=== PATIENT | male | born 1950 | race Caucasian/White ===

== ENCOUNTER 2024-07-27 08:45 | Inpatient (IN) ==
--- NOTE | 2024-07-27 09:12 | Emergency Department Note ---
Impression & Plan Hypertensive urgency, Multiple myeloma, Chest pain, Shortness of breath ED Provider Note NAME: CARA CHANCEMAN AGE: 74 SEX: M : 1950 ARRIVES VIA: Walk-In INFORMANT: Patient ED PROVIDER(S): Adonay Moreno DO CHIEF COMPLAINT: chest pain HPI: Patient is a 74-year-old male who follows with hematology oncology Dr. Aguiar for multiple myeloma. He has been undergoing treatments for the past month. Last treatment was this past Thursday. He notes that last night he started with a lower back pain just around the base of his back. Is worse with twisting, turning, and bending. He was also getting some intermittent chest pressure in the middle of his chest which has been coming and going since yesterday. He has noticed some exertional shortness of breath as well. He had some lower abdominal pain but no vomiting or diarrhea. No dysuria, urgency, or frequency. No other exacerbating or remitting factors. Currently has no chest pain. ADDITIONAL HISTORY OBTAINED: Per HPI Chronic Medical/Social Conditions Affecting Care: Per HPI PAST MEDICAL HISTORY:See Below PAST SURGICAL HISTORY:See Below FAMILY HISTORY:See Below SOCIAL HISTORY:See Below HOME MEDICATIONS:See Below ALLERGIES:See Below VITALS:See Below PHYSICAL EXAMINATION: GENERAL: Sitting up in bed, alert, well appearing, well nourished, no distress, non-toxic EYE EXAM: normal conjunctiva. PERRL and EOM's grossly intact. OROPHARYNX: no exudate, no erythema, lips, buccal mucosa, and tongue normal and mucous membranes are moist NECK: supple, no nuchal rigidity, no adenopathy, non-tender LUNGS: Clear to auscultation. Normal chest wall mechanics HEART: no murmurs, S1 normal and S2 normal ABDOMEN: abdomen soft, non-tender, normo-active bowel sounds, no masses, no rebound or guarding. BACK: Back is symmetrical on inspection and there is no deformity, no midline tenderness paraspinal tenderness from the bilateral lower lumbar L4-L5 region tracking to the SI joints UPPER EXTREMITIES: upper extremities are grossly normal. LOWER EXTREMITIES: No pitting edema. Calves are equal bilaterally NEURO EXAM: Normal sensorium, cranial nerves II-XII grossly intact, normal speech, no gross weakness of arms, no gross weakness of legs. No drift. Finger to nose intact. Gross sensation intact. MEDICAL DECISION MAKING: Patient is a 74-year-old male who presents to the ER with a past medical history of RANDOLPH, prediabetes, multiple myeloma, CKD with above-stated complaint. IV was established medicos obtained. Labs show mild leukopenia 2.7. Mild anemia 10.5. Platelets were low at 62 with no old to compare to. D-dimer was elevated 2600. BMP with LFTs bilirubin was unremarkable. Troponin was negative. Lipase was normal. UA was clear. With the chest pain and exertional shortness of breath Case was discussed with the hospitalist for further evaluation management treatment. CT a of the chest and abdomen pelvis was unremarkable for any acute pathology. He was updated at bedside. He was given IV hydralazine for elevated blood pressure with a low heart rate. Pressures did trend down slightly. He was also given IV morphine for his back pain. Back pain improved significantly and following this was when he was given the hydralazine. Consults/Care Managements Discussions: Per [facility] Triage Nursing notes reviewed. Limited review of prior medical records performed Vital Signs: reviewed and remarkable for no significant abnormalities Differential diagnosis: Cardiac ischemia, aortic dissection, pulmonary embolism, pneumothorax, pneumonia, pericarditis, myocarditis, esophageal rupture, GERD, cholecystitis, pancreatitis, musculoskeletal, as well as other pathologies. ER treatment provided: See below Diagnostics interpreted by me include EKG and cardiac monitoring as listed below: -Cardiac Monitoring: An order was placed for continuous cardiac monitoring. The monitor shows a rate of 70 with sinus rhythm. -ECG: Sinus rhythm at 66 Normal axis No PVCs QTc 444 -Laboratory studies:Interpreted by me as stated above in MDM and shown below. Imaging studies: Xrays: As interpreted by me: Portable AP upright 1 view of the chest shows no focal infiltrate CTs show: CT of the chest and abdomen pelvis was unremarkable per radiology Procedures:none Critical Care: None Past Med/Surg History Problem List (Updated 07/27/24 @ 14:58 by Asuncion Tucker PA-C) Abnormal CT of the abdomen Lumbar back pain Hypertensive urgency Chest pain HTN (hypertension) RANDOLPH (obstructive sleep apnea) Multiple myeloma Prediabetes CKD (chronic kidney disease), stage III Surgical History (Updated 07/27/24 @ 14:55 by Asuncion Tucker PA-C) History of bone marrow biopsy History of colonoscopy Family History (Updated 07/27/24 @ 14:56 by Asuncion Tucker PA-C) Sister Cancer Father COPD (chronic obstructive pulmonary disease) Social History (Updated 07/27/24 @ 14:56 by Asuncion Tucker PA-C) Smoking Status: Former smoker Hx Alcohol Use: Yes Alcohol Intake Frequency: Monthly or Less Hx Substance Use: No Preferred Language: Setswana Feels Safe at Home: Yes Allergies Allergies Allergy/AdvReac Type Severity Reaction Status Date / Time No Known Allergies Allergy Verified 04/01/24 21:22 Home Meds Home Medications Medication Instructions Recorded Confirmed acyclovir 400 mg tablet 400 mg PO BID 07/27/24 07/27/24 dexamethasone 4 mg tablet 4 mg PO UD 07/27/24 07/27/24 glipizide 2.5 mg tablet, extended 2.5 - 5 mg PO UD 07/27/24 07/27/24 release 24 hr lenalidomide 10 mg capsule 10 mg PO Q2D 07/27/24 07/27/24 Results & Data (ED) Vital Signs Vital Signs - 24 hr 07/27/24 08:55 07/27/24 09:22 07/27/24 09:27 Temperature 36.4 C L Temperature Source Skin Pulse Rate 69 66 61 Pulse Rate [Right Finger] Respiratory Rate 20 19 Respiratory Effort / Characteristics Non-Labored Spontaneous Respiratory Depth Normal Blood Pressure 196/100 H Blood Pressure [Left Arm] Blood Pressure Mean 132 Blood Pressure Mean [Left Arm] Blood Pressure Position [Left Arm] Pulse Oximetry 96 97 Oxygen Delivery Method Room Air Room Air Sepsis Recent Fever Within 48 Hours No Sepsis New/Unexplained Change in Mental Status N/A Sepsis Action Taken by Nursing No Action Required 07/27/24 09:27 07/27/24 11:00 07/27/24 12:00 Temperature 36.4 C L Temperature Source Oral Pulse Rate Pulse Rate [Right Finger] 61 65 62 Respiratory Rate 19 18 18 Respiratory Effort / Characteristics Non-Labored Spontaneous Non-Labored Spontaneous Non-Labored Spontaneous Respiratory Depth Normal Blood Pressure Blood Pressure [Left Arm] 182/111 H 184/102 H 195/114 H Blood Pressure Mean Blood Pressure Mean [Left Arm] 134 129 141 Blood Pressure Position [Left Arm] Sitting Sitting Sitting Pulse Oximetry 97 97 97 Oxygen Delivery Method Room Air Room Air Room Air Sepsis Recent Fever Within 48 Hours Sepsis New/Unexplained Change in Mental Status Sepsis Action Taken by Nursing 07/27/24 12:50 07/27/24 13:15 Temperature Temperature Source Pulse Rate Pulse Rate [Right Finger] 73 75 Respiratory Rate 18 17 Respiratory Effort / Characteristics Non-Labored Spontaneous Non-Labored Spontaneous Respiratory Depth Normal Normal Blood Pressure Blood Pressure [Left Arm] 176/108 H 193/94 H Blood Pressure Mean Blood Pressure Mean [Left Arm] 130 127 Blood Pressure Position [Left Arm] Sitting Lying Pulse Oximetry 96 97 Oxygen Delivery Method Room Air Room Air Sepsis Recent Fever Within 48 Hours Sepsis New/Unexplained Change in Mental Status Sepsis Action Taken by Nursing Laboratory Data 07/27/24 09:19 07/27/24 09:19 Lab Results 07/27/24 07/27/24 Range/Units 09:19 10:15 WBC 2.70 L (4.8-10.8) K/ul RBC 3.09 L (4.70-6.10) M/uL Hgb 10.5 L (14.0-18.0) g/dl Hct 30.7 L (42.0-52.0) % MCV 99.4 (80.0-100.0) fL MCH 34.0 (25.0-34.0) pg MCHC 34.2 (32.0-36.0) g/dL RDW Std Deviation 51.5 H (36.4-46.3) fL RDW Coeff of Rocio 14.4 (11.5-14.5) % Plt Count 62 L (130-400) K/uL MPV 12.4 (9.4-12.4) fL Immature Gran % (Auto) 0.7 % Neut % (Auto) 62.2 % Lymph % (Auto) 19.3 % Sharkey % (Auto) 16.7 % Eos % (Auto) 1.1 % Baso % (Auto) 0.0 % Neut # (Auto) 1.68 (1.40-6.50) K/uL Lymph # (Auto) 0.52 L (1.20-3.40) K/uL Sharkey # (Auto) 0.45 (0.11-0.59) K/uL Eos # (Auto) 0.03 (0.00-0.50) K/uL Baso # (Auto) 0.00 (0.00-0.20) K/uL Immature Gran # (Auto) 0.02 (0.01-0.20) K/uL Platelet Estimate Decreased L (Normal) Tear Drop Cells 2+ Ovalocytes 1+ D-Dimer 2640 H* (0-500) ug/L FEU Sodium 138 (136-145) mmol/L Potassium 3.9 (3.5-5.1) mmol/L Chloride 106 (98-107) mmol/L Carbon Dioxide 26 (21-32) mmol/L Anion Gap 6 (3-11) BUN 18 (6-23) mg/dl Creatinine 1.12 (0.6-1.4) mg/dl Est Cr Clr Drug Dosing 70.2 ml/min Est GFR ( Amer) 75.7 ml/min Est GFR (Non-Af Amer) 65.3 ml/min BUN/Creatinine Ratio 16.1 (10-20) Glucose 121 H (70-99(Fasting)) mg/dl Calcium 8.5 L (8.6-10.3) mg/dl Total Bilirubin 0.7 (0.2-1.0) mg/dl AST 22 (13-39) U/L ALT 19 (7-52) U/L Alkaline Phosphatase 67 (34-104) U/L Troponin I High Sens 7.9 (0-20) pg/ml Total Protein 6.7 (6.0-8.3) gm/dl Albumin 3.7 (3.4-5.0) gm/dl Globulin 3.0 (2.5-4.0) gm/dl Albumin/Globulin Ratio 1.2 (0.9-2) Lipase 46 (11-82) U/L Urine Color Yellow Urine Appearance Clear (Clear) Urine pH 5.5 (4.5-7.5) Ur Specific [place] 1.010 (1.000-1.030) Urine Protein 1+ H (Negative) Urine Glucose (UA) Negative (Negative) Urine Ketones Negative (Negative) Urine Blood Negative (Negative) Urine Nitrite Negative (Negative) Urine Bilirubin Negative (Negative) Urine Urobilinogen Negative (Negative) Ur Leukocyte Esterase Negative (Negative) Urine WBC (Auto) 0-5 (0-5) /hpf Urine RBC (Auto) 0-2 (0-2) /hpf U Hyaline Cast (Auto) 0-2 (0-2) /lpf U Epithel Cells (Auto) 0-2 (0-2) /hpf Urine Bacteria (Auto) None Seen (None Seen) Administered Medications Losartan Potassium (Losartan Potassium 50 Mg Tab) 50 mg PO QAM SAMIR Stop: 08/26/24 13:29 Last Admin: 07/27/24 14:04 Dose: 50 mg Documented By: THOMAS Discontinued Medications Aspirin (Aspirin Chew 324 Mg) 324 mg PO NOW STA Stop: 07/27/24 09:13 Last Admin: 07/27/24 09:35 Dose: 324 mg Documented By: THOMAS Hydralazine HCl (Hydralazine Hcl 20 Mg/Ml Vial) 10 mg IV NOW STA Stop: 07/27/24 12:07 Last Admin: 07/27/24 12:16 Dose: 10 mg Documented By: THOMAS Sodium Chloride (Nss) 1,000 mls @ 999 mls/hr IV .Q1H1M ONE Stop: 07/27/24 10:09 Last Infusion: 07/27/24 13:37 Dose: Infused Documented By: Admin: 07/27/24 09:36 Dose: 999 mls/hr Documented By: THOMAS Ioversol (Optiray 320 125ml) 120 ml IV ONCE ONE Stop: 07/27/24 10:44 Last Admin: 07/27/24 10:43 Dose: 120 ml Documented By: LISANDRO Ketorolac Tromethamine (Ketorolac Tromethamine 15 Mg/Ml Vial) 10 mg IV NOW ONE Stop: 07/27/24 09:38 Last Admin: 07/27/24 09:56 Dose: Not Given Documented By: THOMAS Methylprednisolone (Methylprednisolone 125 Mg/2 Ml Vial) 40 mg IV NOW STA Stop: 07/27/24 13:38 Last Admin: 07/27/24 14:06 Dose: 40 mg Documented By: THOMAS Morphine Sulfate (Morphine Sulfate 4 Mg/Ml 1 Ml Carp\Vial) 4 mg IV NOW STA Stop: 07/27/24 09:38 Last Admin: 07/27/24 09:41 Dose: 4 mg Documented By: THOMAS Oxycodone HCl (Oxycodone Hcl Ir 5 Mg Tab (Immediate Release)) 5 mg PO NOW STA Stop: 07/27/24 13:21 Last Admin: 07/27/24 13:25 Dose: 5 mg Documented By: CC Imaging Data Radiologist's Impression: Chest X-Ray 07/27/24 09:09 XR chest 1V portable HISTORY: Chest pain, nonspecific COMPARISON: None. FINDINGS: The lungs are clear. Cardiac silhouette is normal in size. No pleural effusions. No pneumothorax. IMPRESSION: No acute process. ACT 112: Negative or not required by law. Electronically signed by: Kiran Capellan M.D. 07/27/2024 9:51 AM Abdomen/Pelvis CT 07/27/24 10:27 CT abd pelvis IV con only CLINICAL HISTORY: lower abd pain and back pain TECHNIQUE: Helical axial images of the abdomen and pelvis were obtained and displayed. Automated dose lowering techniques and/or adjustment according to patient size were utilized for this exam. This exam was performed with intravenous contrast. COMPARISON: None available at the time of this dictation. FINDINGS: Lower chest: Bibasilar atelectasis versus scarring is seen. Liver: Hepatic steatosis is noted. A few hypodensities are favored to represent cysts but are too small to characterize. Gallbladder and biliary tree: Eccentric prominences of the gallbladder wall in the posterior and distal aspect may represent cholesterol cysts. No intra- or extrahepatic biliary ductal dilation. Pancreas: Unremarkable, no focal lesions. Spleen: Unremarkable. Adrenals: Unremarkable. Kidneys and ureters: Renal cysts are seen. Bladder: Unremarkable. Reproductive organs: Unremarkable. Bowel: The appendix is normal. There is underdistention of the descending and sigmoid colon with mild prominence of the wall. Lymph nodes Retroperitoneal: Unremarkable. Pelvic: Unremarkable. Mesenteric: Unremarkable. Peritoneum: Normal. Vessels: Atherosclerotic calcifications are seen. Abdominal wall: Unremarkable. Bones: Degenerative changes in the visualized spine. IMPRESSION: No acute abnormalities are definitely seen to suggest lower abdominal pain and back pain. Minimal prominence of the descending colonic wall is likely due to underdistention however clinical correlation is recommended to exclude very mild infectious/inflammatory colitis. ACT 112: Negative or not required by law. Electronically signed by: Wale Bunn M.D. 07/27/2024 11:15 AM Chest CTA 07/27/24 10:27 CT ANGIOGRAPHY OF THE CHEST, PULMONARY EMBOLUS PROTOCOL CLINICAL HISTORY: Chest pain. Evaluate for pulmonary embolus. COMPARISON STUDY: Chest radiograph performed earlier today. TECHNIQUE: Following IV administration of 120 mL of Optiray, helical axial images of the chest were obtained utilizing the pulmonary embolus protocol. Maximal intensity projections and sagittal and coronal reformats were viewed on an independent 3D workstation. IV contrast was administered without complication. Automated exposure control was utilized for the study. A dose lowering technique was utilized adhering to the principles of ALARA. CT DOSE: 2060.36 mGy.cm FINDINGS: No pulmonary emboli are identified. There is no thoracic aortic dissection. Size of the heart is normal. There is no pericardial effusion. There is mild dilatation of the aortic arch measuring 3.7 cm. No pneumothorax or pleural effusion is present. There is no thoracic lymphadenopathy. There is no consolidation to suggest pneumonia. Linear densities representing atelectasis or scarring. There are no suspicious pulmonary nodules. No acute fractures within the bony thorax are present. The abdomen and pelvis CT will be reported separately. IMPRESSION: 1. No pulmonary emboli identified. 2. No acute intrathoracic findings. ACT 112: Negative or not required by law. Electronically signed by: Thad Franco M.D. 07/27/2024 10:58 AM Discharge Plan Visit Data Chief Complaint: Hypertension Stated Complaint: ELEVATED BLOOD PRESSURE/CHEMO TREAT 07/25 ED Provider: Adonay Moreno Discharge Problem: Hypertensive urgency, Multiple myeloma, Chest pain, Shortness of breath Forms Stand Alone Forms: [employer] Prescriptions Prescriptions: No Action acyclovir 400 mg tablet 400 mg PO BID glipizide 2.5 mg tablet extended release 24hr 2.5 - 5 mg PO UD Rx Instructions: 1-2 tablets po weekly with each dexamethasone prior to cancer treatment dexamethasone 4 mg tablet 4 mg PO UD Rx Instructions: 20 mg(5 x4mg) weekly prior to treatment lenalidomide 10 mg capsule 10 mg PO Q2D Referrals Referrals: Jean Claude Yao DO [Primary Care Provider] - Discharge Problem: Multiple myeloma Qualifiers: Multiple myeloma remission status: unspecified Qualified Code(s): C90.00 - Multiple myeloma not having achieved remission Chest pain Qualifiers: Chest pain type: unspecified Qualified Code(s): R07.9 - Chest pain, unspecified
[2024-07-27] MEDS: ASPIRIN CHEW 324 MG PO STA (09:35)
[2024-07-27] MEDS: SODIUM CHLORIDE 0.9% 1,000 ML IV ONE (09:36)
[2024-07-27] MEDS: MoRPHine SULFATE 4 MG/ML 1 ML CARP\\VIAL IV STA (09:41)
--- NOTE | 2024-07-27 09:53 | XRay Report ---
XR chest 1V portable HISTORY: Chest pain, nonspecific COMPARISON: None. FINDINGS: The lungs are clear. Cardiac silhouette is normal in size. No pleural effusions. No pneumot horax. IMPRESSION: No acute process. ACT 112: Negative or not required by law. Electronically signed by: Kiran Capellan M.D. 07/27/2024 9:51 AM
[2024-07-27 09:56] LABS: Albumin Globulin Ratio 1.2 (0.9-2); Albumin Level 3.7 gm/dl (3.4-5.0); BUN Creatinine Ratio 16.1 (10-20); Bilirubin,Total 0.7 mg/dl (0.2-1.0); Calcium 8.5 mg/dl (8.6-10.3); Creatinine Clr Calc Pharmacy 70.2 ml/min; Est GFR (African American) 75.7 ml/min; Est GFR (Non-African American) 65.3 ml/min; Potassium 3.9 mmol/L (3.5-5.1); Total Protein 6.7 gm/dl (6.0-8.3)
[2024-07-27] MEDS: KETOROLAC TROMETHAMINE 15 MG/ML VIAL IV ONE (09:56)
[2024-07-27 10:02] LABS: Troponin I High Sensitivity 7.9 pg/ml (0-20)
[2024-07-27 10:07] LABS: Eosinophils # (auto) 0.03 K/uL (0.00-0.50); Eosinophils % (auto) 1.1 %; Hematocrit (blood only) 30.7 % (42.0-52.0); Hemoglobin 10.5 g/dl (14.0-18.0); Immature Granulocytes # (auto) 0.02 K/uL (0.01-0.20); Immature Granulocytes % (auto) 0.7 %; Lymphocytes # (auto) 0.52 K/uL (1.20-3.40); Lymphocytes % (auto) 19.3 %; Mean Corpuscular Hgb Conc 34.2 g/dL (32.0-36.0); Mean Corpuscular Volume 99.4 fL (80.0-100.0); Mean Platelet Volume 12.4 fL (9.4-12.4); Monocytes # (auto) 0.45 K/uL (0.11-0.59); Monocytes % (auto) 16.7 %; Neutrophils # (auto) 1.68 K/uL (1.40-6.50); Neutrophils % (auto) 62.2 %; Ovalocytes 1+; Platelet Count 62 K/uL (130-400); Platelet Estimate Decreased (Normal); RDW Coefficient of Variation 14.4 % (11.5-14.5); RDW Standard Deviation 51.5 fL (36.4-46.3); Red Blood Count 3.09 M/uL (4.70-6.10); Tear Drop Cells 2+
[2024-07-27 10:19] LABS: D Dimer 2640 ug/L FEU (0-500)
[2024-07-27 10:35] LABS: Appearance Urine Clear (Clear); Bacteria Urine Automated None Seen (None Seen); Bilirubin Urine Negative (Negative); Blood Urine Negative (Negative); Cast Urine Automated 0-2 /lpf (0-2); Color Urine Yellow; Epithelial Cell Urine Auto 0-2 /hpf (0-2); Glucose Urine UA Negative (Negative); Ketones Urine Negative (Negative); Leukocyte Esterase Urine Negative (Negative); Nitrite Urine Negative (Negative); Protein Urine 1+ (Negative); RBC Urine Automated 0-2 /hpf (0-2); Urobilinogen Urine Negative (Negative); WBC Urine Automated 0-5 /hpf (0-5); pH Urine 5.5 (4.5-7.5)
--- OUTSIDE RECORDS SUMMARY | 2024-07-27 10:37 | External Medical Summary | Summary of Care ---
Author Name Unknown Organization [facility] Address [address] [place] [address] Phone [phone] Care Team Providers Care Door Clamper Name Role Phone Jean Claude Yao DO Primary Care Provider [phone] Reason for Visit * Reason Comments Chemotherapy Velcade. * Episode Based Medications (Routine) - Authorized Specialty Diagnoses / Procedures Referred By Contac t Referred To Contact Diagnoses Multiple myeloma not having achieved remission (HCC) Encounter for antineoplastic chemotherapy Procedures DC DARATUMUMAB, HYALURONIDASE DC INJECTION, BORTEZOMIB, 0.1MG Abbey Aguiar MD [address] [facility] [place] [address] Anc Hem/Onc [facility] Laure [address] [place] [phone] Referral ID Status Reason Start Date Expiration Date V isits Requested Visits Authorized [id number] Authorized 06/03/2024 06/03/[phone] Encounter Details Date Type Department Care Team (Latest Contact Info) Description 06/23/2024 10:00 AM EDT Hem/Onc Treatment Hematology/Oncolog y Treatment, [address] [phone] Laure, Chair 1 Hem Onc [address] [place] [address] Multiple myeloma not having achieved remission (HCC)*; Encounter for antineoplastic chemotherapy Allergies No known active allergiesdocumented as of this encounter (statuses as of 07/25/2024) Medications Medication Sig Dispensed Refills Start Date End Date Status CPAP every night at bedtime. Active Polyethylene Glycol 3350 17 GM Oral Packet Take 1 Packet by mouth in the morning. Active Metamucil Free & Natural 43 % Oral Powder (Psyllium) Take by mouth. Active glipiZIDE ER 2.5 MG Oral Tablet Extended Release 24 Hour (Glucotrol XL) TAKE 1-2 TABLETS BY MOUTH WEEKLY WITH EACH DEXAMETHASONE DOSE DIRECTED 10 Tablet 3 4 Active dexAMETHasone 4 MG Oral Tablet (Decadron)Pily cations:Smolde ring multiple myeloma (SMM) Take 5 Tablets by mouth once a week. 20 Tablet 5 4 Active Acyclovir 400 MG Oral Tablet (Zovirax)Indic ations:Smolder ing multiple myeloma (SMM) Take 1 Tablet by mouth in the morning and 1 Tablet before bedtime. 60 Tablet 3 4 Active Aspirin 81 MG Oral Tablet Delayed ReleaseIndicat ions:Smolderin g multiple myeloma (SMM) Take 1 Tablet by mouth in the morning. 30 Tablet 3 07/19/20 24 Discontinued Lenalidomide 10 MG Oral Capsule (Revlimid)Pily cations:Smolde ring multiple myeloma (SMM) Take 1 Capsule by mouth in the morning. Days 1-21 every 28 days. 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 Chronic kidney disease, stage 3a 12/29/2022 Overview: Per CKD protocol Pancreatic cyst 08/08/2022 Renal cyst 08/08/2022 Arteriosclerosis of carotid artery, bilateral Contracture of palmar fascia 05/27/2022 HTN, goal below 150/90 05/27/2022 Obstructive sleep apnea of adult 05/27/2022 documented as of this encounter (statuses as of 07/25/2024) Resolved Problems Problem Noted Date Diagnosed Date Resolved Date Prediabetes 10/26/2023 12/31/2023 Overview: Per Prediabetes protocol Hypertensive kidney disease with stage 3a chronic kidney disease 07/02/2023 03/29/2024 Lesion of pancreas 12/09/2022 documented as of this encounter (statuses as of 07/25/2024) Immunizations Name Administration Dates Next Due COVID-19 mRNA, LNP-s, No Pre serve, 2-Dose Series (Moderna) 03/22/2021,02/21/2021 Pneumococcal Conjugate Vacc, 13 Valent (Prevnar) 12/15/2017 Pneumococcal Polysaccharide PPV23 (Pneumovax) Seasonal Influenza, Quadrivalent Hd (Fluzone Hd) 08/03/2023,08/08/2022 TDAP (age 10 and older)(Boostrix) 04/07/2024,01/2015 Varicella Zoster Vaccine (Adult) 10/16/2012 Zoster Vaccine Recombinant (Shingrix) 12/09/2022 documented as of this encounter Social History Tobacco Use Types Packs/Day Years Used Date Smoking Tobacco: Former Cigarettes Q uit: 1979 Passive Smoke Exposure: Past Smokeless Tobacco: Never Alcohol Use Standard Drinks/Week Comments Yes 0 (1 standard drink = 0.6 oz pur e alcohol) 1 beer every 2 weeks PHQ-2 Answer Date Recorded PHQ Adult Total Score 0 09/30/2023 Hunger Vital Sign Answer Date Recorded Within the past 12 months, y ou worried that your food would run out before you got the money to buy more. Never true 09/30/20 23 Within the past 12 months, t he food you bought just didn't last and you didn't have money to get more. Never true 09/30/2023 Childcare Answer Date Recorded Do you feel overwhelmed with taking care of a child, family member or friend? No 09/30/2023 Does your family need help f inding childcare? (Household - for ages 0-17 years) Not on file 09/30/2023 Clothing Answer Date Recorded Have you been unable to get clothing when it was really needed? No 09/30/2023 Is your family able to get c lothes or diapers when needed? (Household - for ages 0-17 years) Not on file 09/30/2023 Personal Safety Answer Date Recorded Do you feel unsafe or have concerns for your saf ety? No 09/30/2023 Do you have concerns for you r family's safety? (Household - for ages 0-17 years) Not on file 09/30/2023 Utilities Answer Date Recorded Do you have trouble paying y our heating, water, or electric bill? No 09/30/2023 Is your family able to pay t he heat, water, or electric bill? (Household - for ages 0-17 years) Not on file 09/30/2023 Does your family have access to good internet? (Household - for ages 0-17 years) Not on file 09/30/2023 Employment Status Answer Date Recorded Are you unemployed or without regular income? No 09/30/2023 Does the household have a re lar source of income? (Household - for ages 0-17 years) Not on file 09/30/2023 Social Connections Answer Date Recorded How often do you feel lonely or isolated from th ose around you? Never 09/30/2023 Financial Resource Strain Answer Date R ecorded Do you have any trouble payi ng for your medications, or do you think you might in the future? No 09/30/2023 Does your family have troubl e paying for medicine? (Household - for ages 0-17 years) Not on file 09/30/2023 Transportation Needs Answer Date Record ed READ ONLY Do you have troubl e getting a ride to medical visits or work? Never True 09/30/2023 Does your family have a hard time getting a ride to doctors visits? (Household - for ages 0-17 years) Not on file 09/30/2023 Has lack of transportation k ept you from medical appointments, meetings, work, or from getting things needed for daily living? Check all that apply. (Adult - for ages 18 years and over) Not on file 09/30/2023 Do you (or your family) have trouble finding or paying for a ride (transportation)? (Household - for ages 0-17 years) Not on file 09/30/2023 Housing Stability Answer Date Recorded Do you currently live in a s helter or have no steady place to sleep at night? No 09/30/2023 READ ONLY Do you think you a re at risk of becoming homeless? No 09/30/2023 Does your family worry about paying for your home or becoming homeless? (Household - for ages 0-17 years) Not on file 1 11/30/2022 Are you homeless or worried that you might be in the future? (Adult - for ages 18 years and over) Not on file Are you (or your family) paul eless or worried that you might be in the future? (Household - for ages 0-17 years) Not on file Food Insecurity Answer Date Recorded Do you need food for this week? No 09/30/2023 Are you able to get enough f ood for your family? (Household - for ages 0-17 years) Not on file 09/30/2023 Does your family need food t his week? (Household - for ages 0-17 years) Not on file 09/30/2023 Do you always have enough fo od for your family? (Household - for ages 0-17 years) Not on file 09/30/2023 Sex and Gender Information Value Date Recorded Sex Assigned at Male 05/27/2022 2:38 PM EDT Gender Identity Male 05/27/2022 2:38 PM EDT Sexual Orientation Straight 05/27/2022 2: 38 PM EDT Job Start Date Occupation Industry Not on file Not on file Not on file documented as of this encounter Last Filed Vital Signs Vital Sign Reading Time Taken Comments Blood Pressure 134/85 06/23/2024 10:00 AM EDT Pulse 63 06/23/2024 10:00 AM EDT Temperature 36.7 C (98.1 F) 06/23/2024 10:00 AM E DT Respiratory Rate 18 06/23/2024 10:00 AM EDT Oxygen Saturation 98% 06/23/2024 10:00 AM EDT Inhaled Oxygen Concentration - - Weight - - Height - - Body Mass Index - - documented in this encounter Nursing Notes * Huong Fang RN - 06/23/2024 10:21 AM EDT Chair 7. Patient arrived for velcade. Patient stated did have a temperature after 1 st treatment (see previus note). Per Patient resolved within a few hours without taking any medication. Chemotherapy/Immunotherapy agents: VELCADE Consent for chemotherapy drug treatment complete, dated, and signed? yes, date - 06/01/24 Treatment lab parameters met? Yes- not needed for treatment today, ok to use from 06/20/24 Has treatment weight changed > than 10%? No Treatment preauthorized? Yes VITALS Filed Vitals: 06/23/24 1000 BP: 134/85 Pulse: 63 Resp: 18 Temp: 36.7 C (98.1 F) TempSrc: Tympanic SpO2: 98% Urine protein: N/A Patient education completed for treatment? Yes Blood transfusion consent signed and complete? NA Return appointment scheduled? Yes Patient had provider visit today? No - If no provider visit must complete Pretreatment Assessment Functional Status: Functional status at today's visit: Restricted in physically strenuous activity but ambulatory and able to carry out work on a light orsedentary nature, e.g. light house work, office work The drug name, dose, infusion volume, rate and route of administration, expiration date and time, appearance and physical integrity of the drug and rate set on the pump and sequencing of drug administration (as applicable) were verified by me and second sign-in RN. Patient was assessed for symptoms or adverse side effects during treatment. Patient Education: Patient instructed on use of heat and massage functions where applicable. Patient shown how to operate the heat function of the chair and to alert nursing staff if the chair feels too warm. Patient instructed on the risk of potential yadav while using the heat function. PRE-TREATMENT ASSESSMENT: NEURO: denies symptoms CV/RESP: denies symptoms GI/: denies symptoms OTHER: denies any additional symptoms PAIN: 0 Patient tolerated injection well. Discharged in stable condition. documented in this encounter Plan of Treatment Upcoming Encounters Date Type Department Care Team (Latest Contact Info) Description 07/25/2024 8:00 AM EDT Laboratory Laboratory [facility] [address] [place], [place] [phone] Laure, Lab Scenery [address] [place] [address] 07/25/2024 9:00 AM EDT Hem/Onc Treatment Hematology/Oncolog y Treatment, [place] [address] [facility], [place] [phone] Laure, Chair 3 Hem Onc Scenery [address] [place], [place] [address] 07/28/2024 8:00 AM EDT Laboratory Laboratory [facility] [place] [address] [place], [place] [phone] Laure, Lab Scenery [address] [place], [place] [address] 07/28/2024 9:00 AM EDT Hem/Onc Treatment Hematology/Oncolog y Treatment, [place] [address] [facility], [place] [phone] Laure, Chair 6 Hem Onc Scenery [address] [place], [place] [address] 08/01/2024 7:20 AM EDT Laboratory Laboratory [facility] [address] [place], [place] [phone] Laure, Lab Scenery [address] [place] [address] 08/01/2024 8:00 AM EDT [facility] [place] [address] [place], [place] [phone] Abbey Aguiar MD [address] [place], [place] [address] 08/01/2024 8:30 AM EDT Hem/Onc Treatment Hematology/Oncolog y Treatment, [place] [address] [place], [place] [phone] Laure, Chair 5 Hem Onc Scenery [address] [place] [address] 08/08/2024 9:00 AM EDT Pharmacy Pharmacy Hematology Oncology [facility] [address] [place] [address] c[facility] Hem[facility]c [address] [place] [address] 08/23/2024 10:00 AM EDT Office Visit Family Practice [address] [facility] [place] [address] [facility] [place] [address] Jean Claude Yao DO [address] [facility], [place] [address] 09/08/2024 2:30 PM EDT Hospital Encounter ENDO OSS, Endoscopy Room [facility] [address] [place] [phone] Irving Iyer MD [address] [place] [address] 09/08/2024 2:30 PM EDT - 09/08/2024 3:00 PM EDT Surgery ENDO OSS, Endoscopy Room [facility] [address] [place] [phone] Irving Iyer MD [address] [place] [address] COLONOSCOPY FLEXIBLE PROXIMAL DIAGNOSTIC 03/13/2025 11:00 AM EDT Office Visit [facility] Disorders [facility] [place] [address] [place] [phone] Ruma Orellana DO [address] [place] [address] Scheduled Procedures Name Priority Associated Diagnoses Date/Ti me COLONOSCOPY FLEXIBLE PROXIMAL DIAGNOSTIC Recall History of colonic polyps 09/08/2024 2:30 PM EDT Health Maintenance Due Date Last Done Comments Cologuard 1997 Fecal Occult Blood Test 1997 Sigmoidoscopy 1997 Adult Wellness Visit 2018 COVID-19 Vaccine (3 - Moderna risk series) 04/19/2021 03/22/2021, 02/21/2021 Zoster Vaccines (2 of 2) 02/03/2023 12/09/2022, 12/0 11/2011 CKD PHOS USE SMARTSET 14033 06/15/2024 06/15/2023 Colonoscopy 06/29/2024 06/29/2023, 06/16, 03/16/2023, Additional history exists Colorectal Cancer Screening 06/29/2024 Influenza Vaccine (FLU shot) (#1) 2024 08/03/2023, 08/08/2022 HbA1c 09/29/2024 03/29/2024, 1211/2022, 06/15/2023 Depression Screening 09/30/2024 09/30/2023 GFR 01/19/2025 07/22/2024, 090 01/2024, 07/11/2024, Additional history exists Diabetic Eye Exam 01/20/2025 01/21/2024, , 05/26/2022 Diabetic Foot Exam 04/12/2025 04/12/2024, 04/12/2024 Albumin/Creatinine Ratio 05/09/2025 024, 06/15/2023, 06/03/2022 CKD HGB USE SMARTSET 68463 07/22/202507/22, 07/22/2024, 07/19/2024, Additional history exists DTap/Tdap Vaccines (3 - Td or Tdap) 04/07/2034 04/07/2024, 04/18/2015 Pneumococcal Vaccine: 65+ Years Completed 01/12/2019, 12/15/2017 AAA Screening Completed 02/21/2023, 0212/2022, 08/01/2022, Additional history exists RETIRED - COLONOSCOPY-ANNUAL AGES 18-100 Discontinued 06/29/2023, 06/29/2023, 03/16/2023, Additional history exists HPV (Gardasil) Vaccine Aged Out No lo nger eligible based on patient's age to complete this topic Hepatitis B Vaccine Aged Out No longe r eligible based on patient's age to complete this topic MENINGOCOCCAL (MENACTRA/MENVEO) Aged Out No longer eligible based on patient's age to complete this topic documented as of this encounter Medical Devices Implanted Type Area Member Service Specialist Device Identifier Shelf Expiration Date Model / Serial / Lot Sureclip 16mm 235cm - [id number] Implanted:Qty: 1 on 03/16/2023 by Irving Iyer MD at OR [facility] MI[employer] ENDOSCOPY [id number] 05/19/2025 [id number] / / [id number] Duraclip 16mm Xlg Repostn - [id number] Implanted:Qty: 1 on 03/16/2023 by Irving Iyer MD at OR [facility] [employer] PHILLIP [id number] 05/18/2024 [id number] / / [id number] Duraclip 16mm Xlg Repostn - [id number] Implanted:Qty: 1 on 03/16/2023 by Irving Iyer MD at OR [facility] [employer] [id number] 05/18/2024 [id number] / / [id number] Duraclip 16mm Xlg Repostn - [id number] Implanted:Qty: 1 on 03/16/2023 by Irving Iyer MD at OR [facility] [employer] [id number] 05/18/2024 [id number] / / [id number] Duraclip 16mm Xlg Repostn - [id number] Implanted:Qty: 1 on 03/16/2023 by Irving Iyer MD at OR [facility] [employer] [id number] 05/18/2024 [id number] / / [id number] Duraclip 16mm Xlg Repostn - [id number] Implanted:Qty: 1 on 03/16/2023 by Irving Iyer MD at OR [facility] [employer] [id number] 05/18/2024 [id number] / / [id number] Duraclip 16mm Xlg Repostn - [id number] Implanted:Qty: 1 on 03/16/2023 by Irving Iyer MD at OR [facility] [employer] [id number] 05/19/2024 [id number] / / [id number] Duraclip 16mm Xlg Repostn - [id number] Implanted:Qty: 1 on 03/16/2023 by Irving Iyer MD at OR [facility] [employer] [id number] 05/19/2024 [id number] / / [id number] Duraclip 16mm Xlg Repostn - [id number] Implanted:Qty: 1 on 03/16/2023 by Irving Iyer MD at OR [facility] [employer] [id number] 05/19/2024 [id number] / / [id number] Duraclip 16mm Xlg Repostn - [id number] Implanted:Qty: 1 on 03/16/2023 by Irving Iyer MD at OR [facility] [employer] [id number] 05/18/2024 [id number] / / [id number] Duraclip 16mm Xlg Repostn - [id number] Implanted:Qty: 1 on 03/16/2023 by Irving Iyer MD at OR [facility] [employer] [id number] 05/18/2024 [id number] / / [id number] Duraclip 16mm Xlg Repostn - [id number] Implanted:Qty: 1 on 03/16/2023 by Irving Iyer MD at OR [facility] [employer] [id number] 05/18/2024 [id number] / / [id number] Duraclip 16mm Xlg Repostn - [id number] Implanted:Qty: 1 on 03/16/2023 by Irving Iyer MD at OR [facility] [employer] [id number] 05/18/2024 [id number] / / [id number] Duraclip 16mm Xlg Repostn - [id number] Implanted:Qty: 1 on 03/16/2023 by Irving Iyer MD at OR [facility] [employer] [id number] 05/18/2024 [id number] / / [id number] documented as of this encounter Visit Diagnoses Diagnosis Multiple myeloma not having achieved remission (HCC)- Primary Multiple myeloma, without mention of having achieved remission Encounter for antineoplastic chemotherapy History of colonic polyps Personal history of colonic polyps documented in this encounter Administered Medications Inactive Administered Medications - up to 3 most recent administrations Medication Order MAR Action Action Date Dose Rate Site Bortezomib (Velcade) 2.5 mg/mL subQ inj 2.75 mg 2.75 mg (rounded from 2.821 mg = 1.3 mg/m2 2.17 m2 Treatment Plan BSA from Recorded weight), Subcutaneous, ONCE, On Jaclyn 06/23/24 at 1145, For 1 dose, Administer subcutaneously in thigh or abdomen-rotate site Given 06/23/2024 10:05 AM EDT 2.75 mg Abdomen Right Lower documented in this encounter Care Teams Door Clamper Relationship Specialty Start Date End Date Jean Claude Yao DO [address] [facility], [place] [address] PCP - General Internal Medicine 05/09/24 documented as of this encounter
--- OUTSIDE RECORDS SUMMARY | 2024-07-27 10:37 | External Medical Summary ---
Author Name Unknown Address Unknown Organization K09[facility] [address] [place] [address] Laboratory Report Ordering Provider Test Date Status CARLENE PEREZ 07/25/2024 08:02:27 Final Observation Date Value Abnormality Reference (Units ) Status SYNC LEUKOCYTES IN BLOOD BY AUTOMATED COUNT 07/25/2024 08:02:27 6.36 4.00-10.80 (K/uL) Final Segs 07/25/2024 08:02:27 84.4 Above high normal 40.0-75.0 (%) Final Lymphs % 07/25/2024 08:02:27 7.7 Below low normal 18.0-42.0 (%) Final Monos 07/25/2024 08:02:27 7.7 1.0-11.0 (%) Final Eosinophils 07/25/2024 08:02:27 0.0 0.0-6.0 (%) Final Basos 07/25/2024 08:02:27 0.2 0.0-2.0 (%) Final Absolute Segs 07/25/2024 08:02:27 5.37 1.80-7.70 (K/uL) Final Lymphs, absolute 07/25/2024 08:02:27 0.49 Below low normal 1.00-4.80 (K/ul) Final Monos, Abs 07/25/2024 08:02:27 0.49 0.00-1.10 (K/uL) Final Eos, Abs 07/25/2024 08:02:27 0.00 0.00-0.70 (K/uL) Final Basos, Abs 07/25/2024 08:02:27 0.01 0.00-0.20 (K/uL) Final Performing Location [facility] [address] [place] [address]
--- OUTSIDE RECORDS SUMMARY | 2024-07-27 10:37 | External Medical Summary ---
Author Name Unknown Address Unknown Organization [facility] [address] [place] [address] Laboratory Report Ordering Provider Test Date Status CARLENE PEREZ 07/25/2024 08:02:27 Final Observation Date Value Abnormality Reference (Units ) Status BUN 07/25/2024 08:02:27 20 6-20 (mg/dL) Final Creatinine 07/25/2024 08:02:27 1.1 0.6-1.2 (mg/dL) Final Glomerular filtration rate/1.73 sq M.predicted [Volume Rate/Area] in Serum, Plasma or Blood by Creatinine-based formula (CKD-EPI) 07/25/2024 08:02:27 71 >=60 (mL/min) Final eGFR is calculated based on the CKD-EPI 2020 equation. Sodium 07/25/2024 08:02:27 138 135-146 (m mol/L) Final Potassium 07/25/2024 08:02:27 4.3 3.5-5.1 (m mol/L) Final Cl 07/25/2024 08:02:27 104 98-107 (mm ol/L) Final CO2 07/25/2024 08:02:27 24 22-32 (mmo l/L) Final Anion gap 07/25/2024 08:02:27 10 7-15 (mmol /L) Final Glucose 07/25/2024 08:02:27 157 Above high normal 70 -120 (mg/dL) Final Albumin 07/25/2024 08:02:27 3.7 Below low normal 3.8 -5.0 (g/dL) Final AST (Aspartate aminotransferase) 07/25/2024 08:02:27 18 10-50 (U/L) Fin al Alk Phos 07/25/2024 08:02:27 90 35-130 (U/ L) Final Bilirubin, Total 07/25/2024 08:02:27 0.6 <=1 .2 (mg/dL) Final Calcium 07/25/2024 08:02:27 8.8 8.4-10.2 ( mg/dL) Final Protein 07/25/2024 08:02:27 7.1 6.0-8.3 (g /dL) Final ALT (Alanine aminotransferase) 07/25/2024 08:02:27 18 10-50 (U/L) Toby pruett Performing Location [facility] [address] [place] [address]
--- OUTSIDE RECORDS SUMMARY | 2024-07-27 10:37 | External Medical Summary ---
Author Name Unknown Address Unknown Organization K09:[facility] [address] Laboratory Report Ordering Provider Test Date Status CARLENE PEREZ 07/25/2024 08:02:27 Final Observation Date Value Abnormality Reference (Units ) Status WBC, Total 07/25/2024 08:02:27 6.36 4.00-10.8 0 (K/uL) Final RBC 07/25/2024 08:02:27 3.03 4.50-5.25 (M/uL) Final Hemoglobin 07/25/2024 08:02:27 10.7 Below low normal 14 .0-16.8 (g/dL) Final HCT 07/25/2024 08:02:27 31.3 Below low normal 40. 0-48.4 (%) Final MCV 07/25/2024 08:02:27 103.3 82.0-99.5 (fL) Final MCH 07/25/2024 08:02:27 35.3 27.0-34.0 (pg) Final MCHC 07/25/2024 08:02:27 34.2 32.0-36.0 (g/dL) Final RDW 07/25/2024 08:02:27 13.8 11.5-15.5 (%) Final Platelets 07/25/2024 08:02:27 90 Below low normal 140 -400 (K/uL) Final MPV 07/25/2024 08:02:27 10.3 6.6-11.1 ( fL) Final Performing Location [facility] [place] [address]
--- OUTSIDE RECORDS SUMMARY | 2024-07-27 10:37 | External Medical Summary | Summary of Care ---
Author Name Unknown Organization [facility] Address [address] [place] [address] Phone [phone] Care Team Providers Care Die Repairer Trimmer Dies Name Role Phone Jean Claude Yao DO Primary Care Provider [phone] Reason for Visit * Reason Comments Outpatient Testing Encounter Details Date Type Department Care Team (Late st Contact Info) Description 07/25/2024 8:00 AM EDT Laboratory Laboratory [facility] [place] [address] [place] [address] [facility] Lab [facility] [address] [facility] [place] [address] Multiple myeloma not having achieved remission (HCC) Allergies No known active allergiesdocumented as of this encounter (statuses as of 07/25/2024) Medications Medication Sig Dispensed Refills Start Date End Date Status CPAP every night at bedtime. Active Polyethylene Glycol 3350 17 GM Oral Packet Take 1 Packet by mouth in the morning. Active Metamucil Free & Natural 43 % Oral Powder (Psyllium) Take by mouth. Act casey glipiZIDE ER 2.5 MG Oral Tablet Extended Release 24 Hour (Glucotrol XL) TAKE 1-2 TABLETS BY MOUTH WEEKLY WITH EACH DEXAMETHASONE DOSE DIRECTED 10 Tablet 3 03/26/2024 Active Additional Information Patient not taking.Reported on 06/29/2024 dexAMETHasone 4 MG Oral Tablet (Decadron)Indicat ions:Smoldering multiple myeloma (SMM) Take 5 Tablets by mouth once a week. 20 Tablet 5 05/11/2024 Active Acyclovir 400 MG Oral Tablet (Zovirax)Indicati ons:Smoldering multiple myeloma (SMM) Take 1 Tablet by mouth in the morning and 1 Tablet before bedtime. 60 Tablet 3 06/20/2024 Active Lenalidomide 10 MG Oral Capsule (Revlimid)Indicat ions:Smoldering multiple myeloma (SMM) TAKE 1 CAPSULE BY MOUTH 1 TIME A DAY IN THE MORNING FOR 14 DAYS ON THEN 7 DAYS OFF 14 Capsule 06/24/2024 Active Additional Information Patient not taking.Reported on 06/29/2024 levoFLOXacin 500 MG Oral Tablet (Levaquin)Indicat ions:Multiple myeloma not having achieved remission (HCC) Take 1 Tablet by mouth in the morning. 14 Tablet 1 06/27/2024 Active documented as of this encounter (statuses as [...] 09/30/2023 Does the household have a re gular source of income? (Household - for ages [...] on file documented as of this encounter Plan of Treatment Upcoming Encounters Date Type Department Care Team (Latest Contact Info) Description 07/25/2024 9:00 AM EDT Hem/Onc Treatment Hematology/Oncolog y Treatment, [place] 200 [facility] [place] [phone] Laure, Chair 3 Hem Onc [place] [address] [place] [address] Arrived 07/28/2024 8:00 AM EDT Laboratory Laboratory [facility] Laure [place] [address] [place] [phone] Laure, Lab [address] [place] [address] 07/28/2024 9:00 AM EDT Hem/Onc Treatment Hematology/Oncolog y Treatment, [place] 200 [facility] [place] [phone] Laure, Chair 6 Hem Onc [place] [address] [place] [address] 08/01/2024 7:20 AM EDT Laboratory Laboratory Kelli Kelsey [place] [address] [place] [phone] Laure Lab Scenery [address] [place], [place] [address] 08/01/2024 8:00 AM EDT Office Visit Hematology/Oncolog y Scenery Laure [place] [address] [place] [phone] Abbey Aguiar MD [address] [place] [address] 08/01/2024 8:30 AM EDT Hem/Onc Treatment Hematology/Oncolog y Treatment [place] [address] [place], [place] [phone] Laure, Chair 5 Hem Onc [place] [address] [place] [address] 08/08/2024 9:00 AM EDT Pharmacy Pharmacy Hematology Oncology [facility] [address] [place] [address] [facility] Hem/Onc [address] [place] [address] 08/23/2024 10:00 AM EDT Office Visit Family Practice [address] [place] [address] [address] [place] [address] Jean Claude Yao, 293 [facility] [address] 09/08/2024 2:30 PM EDT Hospital Encounter ENDO OSSC, Endoscopy Room [facility] [address] [facility] [place] [phone] Irving [facility]yer [facility] [place] [address] 09/08/2024 2:30 PM EDT - 09/08/2024 3:00 PM EDT Surgery ENDO OSSC, Endoscopy Room OSS [address] [facility] [place] [address] Irving Iyer MD [address] [place] [address] COLONOSCOPY FLEXIBLE PROXIMAL DIAGNOSTIC 03/13/2025 11:00 AM EDT Office Visit Sleep Disorders Ctr [facility] [address] [place] [phone] Ruma Orellana, [address] [place] [address] Pending Results Name Type Priority Associated Diagnoses Date /Time CBC WITH WBC DIFFERENTIAL Lab STAT Multiple myeloma not having achieved remission (HCC) 07/25/2024 8:02 AM EDT COMPREHENSIVE METABOLIC PANEL Lab STAT Multiple myeloma not having achieved remission (HCC) 07/25/2024 8:02 AM EDT CBC Lab STAT Multiple myeloma not having achieved remission (HCC) 07/25/2024 8:02 AM EDT DIFFERENTIAL, AUTOMATED Lab STAT Multiple myeloma not having achieved remission (HCC) 07/25/2024 8:02 AM EDT Scheduled Procedures Name Priority Associated Diagnoses Date/Ti [...] 12/09/2022, 12/0 11/2011 CKD PHOS USE SMARTSET 89305 06/15/2024 06/15/2023 Colonoscopy 06/29/2024 06/29/2023, 06/16, 03/16/2023, Additional history exists Colorectal Cancer Screening 06/29/2024 Influenza Vaccine (FLU shot) (#1) 2024 08/03/2023, 08/08/2022 HbA1c 09/29/2024 03/29/2024, 11/2022, 06/15/2023 Depression Screening 09/30/2024 09/30/2023 GFR 01/19/2025 07/22/2024, 01/2024, 07/11/2024, Additional history exists Diabetic Eye Exam 01/20/2025 01/21/2024, , 05/26/2022 Diabetic Foot Exam 04/12/2025 04/12/2024, 04/12/2024 Albumin/Creatinine Ratio 05/09/2025 024, 06/15/2023, 06/03/2022 CKD HGB USE SMARTSET 48340 07/22/202507/22, 07/22/2024, 07/19/2024, Additional history exists DTap/Tdap Vaccines (3 - Td or Tdap) 04/07/2034 04/07/2024, 04/18/2015 Pneumococcal Vaccine: 65+ Years Completed 01/12/2019, 12/15/2017 AAA Screening Completed 02/21/2023, 12/2022, 08/01/2022, Additional history exists RETIRED - COLONOSCOPY-ANNUAL [...] this encounter Medical Devices Implanted Type Area Charge Gang Weigher Device Identifier Shelf Expiration Date Model / Serial / Lot Sureclip 16mm 235cm - [id number] Implanted:Qty: 1 on 03/16/2023 by Irving Iyer MD at OR [facility] MICRO TECH ENDOSCOPY [id number] 05/19/2025 [id number] / / [id number] Duraclip 16mm Xlg Repostn - [id number] Implanted:Qty: 1 on 03/16/2023 by Irving Iyer MD at OR [facility] [employer] [id number] 05/18/2024 [id number] / / [id number] Duraclip 16mm Xlg Repostn - [id number] Implanted:Qty: 1 on 03/16/2023 by Irving Iyer MD at OR [facility] CONMED PHILLIP [id number] 05/18/2024 [id number] / / [id number] Duraclip 16mm Xlg Repostn - [id number] Implanted:Qty: 1 on 03/16/2023 by Irving Iyer MD at OR [facility] [employer] [id number] 05/18/2024 [id number] / / [id number] Duraclip 16mm Xlg Repostn - [id number] Implanted:Qty: 1 on 03/16/2023 by Irving Iyer MD at OR [facility] [employer] [id number] 05/18/2024 [id number] / / [id number] Duraclip 16mm Xlg Repostn - [id number] Implanted:Qty: 1 on 03/16/2023 by Irving Iyer MD at OR [facility] [employer] [id number] 05/18/2024 [id number] / / [id number] Duraclip 16mm Xlg Repostn - [id number] Implanted:Qty: 1 on 03/16/2023 by Irving Iyer MD at OR [facility] [employer] [id number] 05/19/2024 [id number] / / [id number] Duraclip 16mm Xlg Repostn - [id number] Implanted:Qty: 1 on 03/16/2023 by Irving Iyer MD at OR [facility] [employer] [id number] 05/19/2024 [id number] / / [id number] Duraclip 16mm Xlg Repostn - [id number] Implanted:Qty: 1 on 03/16/2023 by Irving Iyer MD at OR [facility] [employer] [id number] 05/19/2024 [id number] / / [id number] Duraclip 16mm Xlg Repostn - [id number] Implanted:Qty: 1 on 03/16/2023 by Irving Iyer MD at OR [facility] CON[employer]IP [id number] 05/18/2024 [id number] / / [id number] Duraclip 16mm Xlg Repostn - [id number] Implanted:Qty: 1 on 03/16/2023 by Irving Iyer MD at OR [facility] [employer] [id number] 05/18/2024 [id number] / / [id number] Duraclip 16mm Xlg Repostn - [id number] Implanted:Qty: 1 on 03/16/2023 by Irving Iyer MD at OR [facility] [employer]IP [id number] 05/18/2024 [id number] / / [id number] Duraclip 16mm Xlg Repostn - [id number] Implanted:Qty: 1 on 03/16/2023 by Irving Iyer MD at OR [facility] [employer] [id number] 05/18/2024 [id number] / / [id number] Duraclip 16mm Xlg Repostn - [id number] Implanted:Qty: 1 on 03/16/2023 by Irving Iyer MD at OR [facility] [employer] [id number] 05/18/2024 [id number] / / [id number] documented as of this encounter Visit Diagnoses Diagnosis Multiple myeloma not having achieved remission (HCC) Multiple myeloma, without mention of having achieved remission History of colonic polyps Personal history of colonic polyps documented in this encounter Care Teams Die Repairer Trimmer Dies Relationship Specialty Start Date End Date Jean Claude Yao DO [address] [place] [address] PCP - General Internal Medicine 05/09/24 documented as of this encounter
--- OUTSIDE RECORDS SUMMARY | 2024-07-27 10:37 | External Medical Summary | Summary of Care ---
Author Name Unknown Organization [facility] Address [address] [place] [address] Phone [phone] Care Team Providers Care Bathroom Tiling Professional Name Role Phone Jean Claude Yao DO Primary Care Provider [phone] Reason for Visit * Reason Comments Chemotherapy Day 8, cycle 2 Velca de, darzalex * Episode Based Medications (Routine) - Authorized Specialty Diagnoses / Procedures Referred By Contpreston t Referred To Contact Diagnoses Multiple myeloma not having achieved remission (HCC) Encounter for antineoplastic chemotherapy Procedures AL DARATUMUMAB, HYALURONIDASE AL INJECTION, BORTEZOMIB, 0.1MG Abbey Aguiar MD [address] [facility] [place] [address] Anc Hem/Onc [facility] Laure [address] [place] [phone] Referral ID Status Reason Start Date Expiration Date V isits Requested Visits Authorized [id number] Authorized 06/03/2024 06/03/2025 999 999 Encounter Details Date Type Department Care Team (Latest Contact Info) Description 07/25/2024 9:00 AM EDT Hem/Onc Treatment Hematology/Oncolog y Treatment, [address] [phone] Laure, Chair 3 Hem Onc [address] [place] [address] Multiple myeloma not having achieved remission (HCC)*; [...] money to buy more. Never true 09/30/20 Within the past 12 months, t he [...] No 09/30/2023 Does the household have a [facility] source of income? (Household - for ages [...] Sign Reading Time Taken Comments Blood Pressure 161/83 07/25/2024 9:10 AM EDT Pulse 66 07/25/2024 9:10 AM EDT Temperature 36.2 C (97.1 F) 07/25/2024 9:10 AM ED T Respiratory Rate 18 07/25/2024 9:10 AM EDT Oxygen Saturation 98% 07/25/2024 9:10 AM EDT Inhaled Oxygen Concentration - - Weight 95.7 kg (211 lb) 07/25/2024 9:10 AM EDT Height - - Body Mass Index 28.61 05/27/2024 9:16 AM EDT documented in this encounter Nursing Notes * Lizette Martínez RN - 07/25/2024 10:15 AM EDT Patient given injections per order. Patient tolerated well. Patient left in stable condition. Goals: Patient will remain free from injury. Possible barriers to meeting goals: N/A Stability of the patient: Moderately stable - low risk of patient condition declining or worsening Summary regarding today's goals: Met: patient remained free from injury during treatment. * Lizette Martínez RN - 07/25/2024 9:11 AM EDT Chair 8. Patient here for treatment. States no changes with diarrhea/constipation. Chemotherapy/Immunotherapy agents: DARZALEX and VELCADE Consent for chemotherapy drug treatment complete, dated, and signed? yes, date - 06/01/24 Treatment lab parameters met? Yes - reviewed labs with Dr. Augiar PLT 90. Ok to treat Has treatment weight changed > than 10%? No Treatment preauthorized? Yes VITALS Filed Vitals: 07/25/24 0910 BP: 161/83 Pulse: 66 Resp: 18 Temp: 36.2 C (97.1 F) TempSrc: Tympanic SpO2: 98% Weight: 95.7 kg (211 lb) Urine protein: N/A Patient education completed for treatment? Yes Blood transfusion consent signed and complete? NA Return appointment scheduled? Yes Patient had provider visit today? No - If no provider visit must complete Pretreatment Assessment Functional Status: Functional status at today's visit: Fully active, able to carry on all pre-disease performance without restriction The drug name, dose, infusion volume, rate [...] NEURO: denies symptoms CV/RESP: denies symptoms GI/: Constipation/diarrhea - stable OTHER: denies any additional symptoms PAIN: 0 Safety and Risk for Injury Patient will remain free from injury. Ensure appropriate safety devices are available. Provide and maintain safe environment. documented in this encounter Plan of Treatment Upcoming Encounters Date Type Department Care Team (Latest Contact Info) Description 07/28/2024 8:00 AM EDT Laboratory Laboratory [facility] [place] [address] [place] [phone] [place], Lab Scenery [address] [place] [address] [address] 07/28/2024 9:00 AM EDT Hem/Onc Treatment Hematology/Oncolog y Treatment, [place] 200 [facility] [place] [phone] Laure, Chair 6 Hem Onc [facility] [address] [place] [address] 08/01/2024 7:20 AM EDT Laboratory Laboratory [facility] Laure [place] [address] [place] [phone] Laure, Lab Scenery [address] [place] [address] [address] 08/01/2024 8:00 AM EDT Office Visit Hematology/Oncolog y [facility] Laure [place] [address] [place] [address] [phone] Abbey Aguiar MD [address] [place] [address] 08/01/2024 8:30 AM EDT Hem/Onc Treatment Hematology/Oncolog y Treatment, [place] 200 [facility] [place] [phone] [place], Chair 5 Hem Onc Scenery [address] [place] [address] 08/08/2024 9:00 AM EDT Pharmacy Pharmacy Hematology Oncology [facility] [address] [place] [address] [facility] Clinic Hem/Onc [address] [place] [address] 08/23/2024 10:00 AM EDT Office Visit Family Practice [address] [place] [address] 293 [facility], [place] [phone] Jean Claude Yao, 293 [facility], [place] [address] 09/08/2024 2:30 PM EDT Hospital Encounter ENDO OSSC, Endoscopy Room [facility] [address] [place] [phone] Irving Iyer MD [address] [place] [address] 09/08/2024 2:30 PM EDT - 09/08/2024 3:00 PM EDT Surgery ENDO OSS, Endoscopy Room [facility] [address] [place] [phone] Irving Iyer MD [address] [place] [address] COLONOSCOPY FLEXIBLE PROXIMAL DIAGNOSTIC 03/13/2025 11:00 AM EDT Office Visit Sleep Disorders Ctr Ruel Watts, [place] [address] [place] [phone] Ruma Orellana DO [address] [place] [address] Scheduled Procedures Name Priority Associated Diagnoses Date/Ti me COLONOSCOPY FLEXIBLE PROXIMAL DIAGNOSTIC Recall History of colonic polyps 09/08/2024 2:30 PM EDT Health Maintenance Due Date Last Done Comments Cologuard 1997 Fecal Occult Blood Test 1997 Sigmoidoscopy 1997 Adult Wellness Visit 2018 COVID-19 Vaccine (3 - Moderna risk series) 04/19/2021 03/22/2021, 02/21/2021 Zoster Vaccines (2 of 2) 02/03/2023 12/09/2022, 12/11/2011 CKD PHOS USE SMARTSET 60675 06/15/2024 06/15/2023 Colonoscopy 06/29/2024 06/29/2023, 06/16, 03/16/2023, Additional history exists Colorectal Cancer Screening 06/29/2024 Influenza Vaccine (FLU shot) (#1) 2024 08/03/2023, 08/08/2022 HbA1c 09/29/2024 03/29/2024, 1211/2022, 06/15/2023 Depression Screening 09/30/2024 09/30/2023 Diabetic Eye Exam 01/20/2025 01/21/2024, , 05/26/2022 GFR 01/22/2025 07/25/2024, 0904/2024, 07/19/2024, Additional history exists Diabetic Foot Exam 04/12/2025 04/12/2024, 04/12/2024 Albumin/Creatinine Ratio 05/09/2025 024, 06/15/2023, 06/03/2022 CKD HGB USE SMARTSET [address] 07/25/202507/25, 07/25/2024, 07/22/2024, Additional history exists DTap/Tdap Vaccines (3 - [...] this encounter Medical Devices Implanted Type Area Corrosion Engineer Device Identifier Shelf Expiration Date Model / Serial / Lot Sureclip 16mm 235cm - [id number] Implanted:Qty: 1 on 03/16/2023 by [place] Iyer MD at OR [facility] MICRO TECH ENDOSCOPY [id number] 05/19/2025 [id number] / / [id number] Duraclip 16mm Xlg Repostn - [id number] Implanted:Qty: 1 on 03/16/2023 by Irving Iyer MD at OR [facility] [employer] AS PHILLIP [id number] 05/18/2024 [id number] / / [id number] Duraclip 16mm Xlg Repostn - [id number] Implanted:Qty: 1 on 03/16/2023 by Irving Iyer MD at OR [facility] Roozz.comMED PHILLIP [id number] 05/18/2024 [id number] / / [id number] Duraclip 16mm Xlg Repostn - [id number] Implanted:Qty: 1 on 03/16/2023 by Irving Iyer MD at OR [facility] CONMED PHILLIP [id number] 05/18/2024 [id number] / / [id number] Duraclip 16mm Xlg Repostn - [id number] Implanted:Qty: 1 on 03/16/2023 by Irving Iyer MD at OR [facility] CONMED PHILLIP [id number] 05/18/2024 [id number] / / [id number] Duraclip 16mm Xlg Repostn - [id number] Implanted:Qty: 1 on 03/16/2023 by Irving Iyer MD at OR [facility] CONMED PHILLIP [id number] 05/18/2024 [id number] / / [id number] Duraclip 16mm Xlg Repostn - [id number] Implanted:Qty: 1 on 03/16/2023 by Irving Iyer MD at OR [facility] CONMED PHILLIP [id number] 05/19/2024 [id number] / / [id number] Duraclip 16mm Xlg Repostn - [id number] Implanted:Qty: 1 on 03/16/2023 by Irving Iyer MD at OR [facility] CONMED PHILLIP [id number] 05/19/2024 [id number] / / [id number] Duraclip 16mm Xlg Repostn - [id number] Implanted:Qty: 1 on 03/16/2023 by Irving Iyer MD at OR [facility] CONMED PHILLIP [id number] 05/19/2024 [id number] / / [id number] Duraclip 16mm Xlg Repostn - [id number] Implanted:Qty: 1 on 03/16/2023 by Irving Iyer MD at OR [facility] CONMED PHILLIP [id number] 05/18/2024 [id number] / / [id number] Duraclip 16mm Xlg Repostn - [id number] Implanted:Qty: 1 on 03/16/2023 by Irving Iyer MD at OR [facility] CONMED PHILLIP [id number] 05/18/2024 [id number] / / [id number] Duraclip 16mm Xlg Repostn - [id number] Implanted:Qty: 1 on 03/16/2023 by Irving Iyer MD at OR [facility] CONMED PHILLIP [id number] 05/18/2024 [id number] / / [id number] Duraclip 16mm Xlg Repostn - [id number] Implanted:Qty: 1 on 03/16/2023 by Irving Iyer MD at OR [facility] CONMED PHILLIP [id number] 05/18/2024 [id number] / / [id number] Duraclip 16mm Xlg Repostn - [id number] Implanted:Qty: 1 on 03/16/2023 by Irving Iyer MD at OR [facility] [employer] [id number] 05/18/2024 [id number] / / [id number] documented as of this encounter Visit Diagnoses Diagnosis Multiple myeloma not having achieved remission (HCC)- Primary Multiple myeloma, without mention of having achieved remission Encounter for antineoplastic chemotherapy History of colonic polyps Personal history of colonic polyps documented in this encounter Administered Medications Active Administered Medications - up to 3 most recent administrations Medication Order MAR Action Action Date Dose Rate Site diphenhydrAMINE (Benadryl) inj 50 mg 50 mg, IV Push, ONCE PRN Other, Hypersensitivity Reaction, Starting on Thu07/25/24 at 0925, Until Thu07/26/24 at 0924, For 24 hours EPINEPHrine 1 MG/ML inj 0.3 mg 0.3 mg, Intramuscular, ONCE PRN Other, Hypersensitivity Reaction or Anaphylaxis, Starting on Thu07/25/24 at 0925, Until Thu07/26/24 at 0924, For 24 hours Hydrocortisone Sod Suc (PF) (Solu-Cortef) inj 100 mg 100 mg, IV Push, ONCE PRN Other, Hypersensitivity Reaction, Starting on Thu07/25/24 at 0925, Until Thu07/26/24 at 0924, For 24 hours meperidine (Demerol) 25 MG/ML inj 25 mg 25 mg, IV Push, ONCE PRN Shivering, Starting on Thu07/25/24 at 0925, Until Discontinued oxygen GAS Inhalation, OXYGEN, First dose on Thu07/25/24 at 1000, Until Discontinued, Device/Managed by: Low Flow Device, Goal SPO2 (%): 91-95, Starting Device: Nasal Cannula, Initial Flow Rate (LPM): 2, Lowest Support: Nasal Cannula: Flow 0-6 LPM. Titrate up/down by 1 LPM., Higher Support: Non-Rebreather (NRB) Mask: Minimum of 10 LPM. Titrate to maintain bag inflation., Titration Interval: Q2 minutes and as needed., Notify Provider: For sudden DECREASE in resting SPO2 to less than 85% and when escalating delivery device., Wean patient off Oxygen when the oxygen saturation is greater than or equal to 93% Inactive Administered Medications - up to 3 most recent administrations Medication Order MAR Action Action Date Dose Rate Site Acetaminophen (Tylenol) tab 650 mg 650 mg, Oral, ONCE, On Thu07/25/24 at 1000, For 1 dose, Maximum of 4 grams (4000 mg) per day. Given 07/25/2024 9:43 AM EDT 650 mg Bortezomib (Velcade) 2.5 mg/mL subQ inj 2.75 mg 2.75 mg (rounded from 2.821 mg = 1.3 mg/m2 2.17 m2 Treatment Plan BSA from Recorded weight), Subcutaneous, ONCE, On Thu07/25/24 at 1100, For 1 dose, Administer subcutaneously in thigh or abdomen-rotate site Given 07/25/2024 10:04 AM EDT 2.75 mg Abdomen Left Lower Daratumumab-hyaluronidase- fihj (Darzalex Faspro) 1800 mg-51612 units/ 15 ml subcut inj 15 mL, Subcutaneous, ONCE, On Thu07/25/24 at 1130, For 1 dose, Inject subcutanteously into abdomen over 3 to 5 minutes Given 07/25/2024 10:04 AM EDT 15 mL Abdomen Right Lower diphenhydrAMINE (Benadryl) cap 50 mg 50 mg, Oral, ONCE, On Thu07/25/24 at 1000, For 1 dose Given 07/25/2024 9:43 AM EDT 50 mg documented in this encounter Care Teams Bathroom Tiling Professional Relationship Specialty Start Date End Date Jean Claude Yao DO [address] [facility] [place] [address] PCP - General Internal Medicine 05/09/24 documented as of this encounter
--- OUTSIDE RECORDS SUMMARY | 2024-07-27 10:37 | External Medical Summary ---
Author Name Unknown Address Unknown Organization K[facility] [place] [address] Laboratory Report Ordering Provider Test Date Status CARLENE PEREZ 07/25/2024 08:02:27 Final Observation Date Value Abnormality Reference (Units ) Status Nucleated erythrocytes/100 leukocytes [Ratio] in Blood by Automated count 07/25/2024 08:02:27 Final Performing Location [facility] [place] [address]
--- OUTSIDE RECORDS SUMMARY | 2024-07-27 10:38 | External Medical Summary | Summary of Care ---
Author Name Unknown Organization [facility] Address [address] [place] [address] Phone [phone] Care Team Providers Care Orthopedic Technician Name Role Phone Jean Claude Yao DO Primary Care Provider [phone] Reason for Visit * Reason Comments Chemotherapy Velcade. * Episode Based Medications (Routine) - Authorized Specialty Diagnoses / Procedures Referred By Contac t Referred To Contact Diagnoses Multiple myeloma not having achieved remission (HCC) Encounter for antineoplastic chemotherapy Procedures [place] DARATUMUMAB, HYALURONIDASE [place] INJECTION, BORTEZOMIB, 0.1MG Abbey Aguiar MD 200 [facility] [place] [address] Anc Hem/Onc [facility] Laure [address] [place] [phone] Referral ID Status Reason Start Date Expiration Date V isits Requested Visits Authorized [id number] Authorized 06/03/2024 06/03/2025 [id number] Encounter Details Date Type Department Care Team (Latest Contact Info) Description 06/23/2024 10:00 AM EDT Hem/Onc Treatment Hematology/Oncolog y Treatment, [address] [address] Laure, Chair 1 Hem Onc [address] [place] [address] Multiple myeloma not having achieved remission [...] Description 07/25/2024 8:00 AM EDT Laboratory Laboratory [facility] [address] [place], [place] [address] Laure, Lab Scenery [address] [place] [address] 07/25/2024 9:00 AM EDT Hem/Onc Treatment Hematology/Oncolog y Treatment, [place] 200 [facility], [place] [address] Laure, Chair 3 Hem Onc Scenery [address] [place], [place] [address] 07/28/2024 8:00 AM EDT Laboratory Laboratory [facility] [place] [address] [place], [place] [address] Laure, Lab Scenery [address] [place], [place] [address] 07/28/2024 9:00 AM EDT Hem/Onc Treatment Hematology/Oncolog y Treatment, [place] [address] [facility], [place] [address] Laure, Chair 6 Hem Onc Scenery [address] [place], [place] [address] 08/01/2024 7:20 AM EDT Laboratory Laboratory [facility] [address] [place], [place] [address] Laure, Lab Scenery [address] [place] [address] 08/01/2024 8:00 AM EDT Office Visit Hematology/Oncolog y [facility] Laure [place] [address] [place], [place] [address] Abbey Aguiar MD [address] [place], [place] [address] 08/01/2024 8:30 AM EDT Hem/Onc Treatment Hematology/Oncolog y Treatment, [place] [address] [place], [place] [phone] Laure, Chair 5 Hem Onc Scenery [address] [place] [address] 08/08/2024 9:00 AM EDT Pharmacy Pharmacy Hematology Oncology [facility] [address] [place] [address] c[facility] Hem[facility]Onc [address] [place] [address] 08/23/2024 10:00 AM EDT Office Visit Family Practice [facility], [place] 293 [facility] [address] Jean Claude Yao DO 293 [place] [address] 09/08/2024 2:30 PM EDT Hospital Encounter ENDO OSS, Endoscopy Room [facility] [address] [place] [phone] Irving Iyer MD [address] [place] [address] 09/08/2024 2:30 PM EDT - 09/08/2024 3:00 PM EDT Surgery ENDO OSS, Endoscopy Room [facility] [address] [place] [phone] Irving Iyer MD [address] [place] [address] COLONOSCOPY FLEXIBLE PROXIMAL DIAGNOSTIC 03/13/2025 11:00 AM EDT Office Visit Sleep Disorders Ctr [facility] [place] [address] [place] [phone] Ruma Orellana DO [address] [place] [address] Scheduled Procedures Name Priority Associated Diagnoses Date/Ti [...] 12/09/2022, 12/0 11/2011 CKD PHOS USE SMARTSET 28821 06/15/2024 06/15/2023 Colonoscopy 06/29/2024 06/29/2023, 06/16, 03/16/2023, Additional history exists Colorectal Cancer Screening 06/29/2024 Influenza Vaccine (FLU shot) (#1) 2024 08/03/2023, 08/08/2022 HbA1c 09/29/2024 03/29/2024, 1211/2022, 06/15/2023 Depression Screening 09/30/2024 09/30/2023 GFR 01/19/2025 07/22/2024, 090 01/2024, 07/11/2024, Additional history exists Diabetic Eye Exam 01/20/2025 01/21/2024, , 05/26/2022 Diabetic Foot Exam 04/12/2025 04/12/2024, 04/12/2024 Albumin/Creatinine Ratio 05/09/2025 024, 06/15/2023, 06/03/2022 CKD HGB USE SMARTSET 19793 07/22/202507/22, 07/22/2024, 07/19/2024, Additional history exists DTap/Tdap [...] this encounter Medical Devices Implanted Type Area Virtual Recruiter Device Identifier Shelf Expiration Date Model / Serial / Lot Sureclip 16mm 235cm - [id number] Implanted:Qty: 1 on 03/16/2023 by Irving Iyer MD at OR [facility] MICRO TECH ENDOSCOPY [id number] 05/19/2025 [id number] / / [id number] Duraclip 16mm Xlg Repostn - [id number] Implanted:Qty: 1 on 03/16/2023 by Irving Iyer MD at OR [facility] [employer] PHILLIP [id number] 05/18/2024 [id number] / / [id number] Duraclip 16mm Xlg Repostn - [id number] Implanted:Qty: 1 on 03/16/2023 by Irving Iyer MD at OR [facility] [employer] [id number] 05/18/2024 [id number] / / [id number] Duraclip 16mm Xlg Repostn - [id number] Implanted:Qty: 1 on 03/16/2023 by Irving Iyer MD at OR [facility] [employer] [id number] 05/18/2024 [id number] / / [id number] Duraclip 16mm Xlg Repostn - [id number] Implanted:Qty: 1 on 03/16/2023 by Irving Iyer MD at OR [facility] [employer] [id number] 05/18/2024 [id number] / / [id number] Duraclip 16mm Xlg Repostn - [id number] Implanted:Qty: 1 on 03/16/2023 by Irving Iyer MD at OR [facility] [employer] [id number] 05/18/2024 [id number] / / [id number] Duraclip 16mm Xlg Repostn - [id number] Implanted:Qty: 1 on 03/16/2023 by Irving Iyer MD at OR [facility] [employer] [id number] 05/19/2024 [id number] / / [id number] Duraclip 16mm Xlg Repostn - [id number] Implanted:Qty: 1 on 03/16/2023 by Irving Iyer MD at OR [facility] [employer] [id number] 05/19/2024 [id number] / / [id number] Duraclip 16mm Xlg Repostn - [id number] Implanted:Qty: 1 on 03/16/2023 by Irving Iyer MD at OR [facility] [employer] [id number] 05/19/2024 [id number] / / [id number] Duraclip 16mm Xlg Repostn - [id number] Implanted:Qty: 1 on 03/16/2023 by Irving Iyer MD at OR [facility] [employer] [id number] 05/18/2024 [id number] / / [id number] Duraclip 16mm Xlg Repostn - [id number] Implanted:Qty: 1 on 03/16/2023 by Irving Iyer MD at OR [facility] [employer] [id number] 05/18/2024 [id number] / / [id number] Duraclip 16mm Xlg Repostn - [id number] Implanted:Qty: 1 on 03/16/2023 by Irving Iyer MD at OR [facility] [employer] [id number] 05/18/2024 [id number] / / [id number] Duraclip 16mm Xlg Repostn - [id number] Implanted:Qty: 1 on 03/16/2023 by Irving Iyer MD at OR [facility] [employer] [id number] 05/18/2024 [id number] / / [id number] Duraclip 16mm Xlg Repostn - [id number] Implanted:Qty: 1 on 03/16/2023 by Irving Iyer MD at OR [facility] [employer] [id number] 05/18/2024 [id number] / / [id number] documented as of this encounter Visit Diagnoses [...] Lower documented in this encounter Care Teams Orthopedic Technician Relationship Specialty Start Date End Date Jean Claude Yao DO 293 [place] [address] PCP - General Internal Medicine 05/09/24 documented as of this encounter
--- OUTSIDE RECORDS SUMMARY | 2024-07-27 10:38 | External Medical Summary | Summary of Care ---
Author Name Unknown Organization [facility] Address [address] [place] [address] Phone [phone] Care Team Providers Care Ase Certified Technician Name Role Phone Jean Claude Yao DO Primary Care Provider [phone] Reason for Visit * Reason Comments Chemotherapy C1 D8 Darzalex Faspr o/ velcade * Episode Based Medications (Routine) - Authorized Specialty Diagnoses / Procedures Referred By Felicita t Referred To Contact Diagnoses Multiple myeloma not having achieved remission (HCC) Encounter for antineoplastic chemotherapy Procedures [place] DARATUMUMAB, HYALURONIDASE [place] INJECTION, BORTEZOMIB, 0.1MG Abbey Aguiar MD 200 [facility] [place] [address] Anc Hem/Onc [facility] Laure [address] [place] [phone] Referral ID Status Reason Start Date Expiration Date V isits Requested Visits Authorized [id number] Authorized 06/03/2024 06/03/[phone] Encounter Details Date Type Department Care Team (Latest Contact Info) Description 07/04/2024 9:00 AM EDT Hem/Onc Treatment Hematology/Oncolog y Treatment, [address] [phone] Laure, Chair 10 Hem Onc [address] [place] [address] Multiple myeloma not having achieved remission (HCC)*; Encounter for antineoplastic chemotherapy Allergies No known active allergiesdocumented as of this encounter (statuses as of 07/23/2024) Medications Medication Sig Dispensed Refills Start Date [...] on 06/29/2024 dexAMETHasone 4 MG Oral Tablet (Decadron)Indic ations:Smolderi ng multiple myeloma (SMM) Take 5 Tablets by mouth once a week. 20 Tablet 5 05/11/2024 Active Acyclovir 400 MG Oral Tablet (Zovirax)Indica tions:Smolderin g multiple myeloma (SMM) Take 1 Tablet by mouth in the morning and 1 Tablet before bedtime. 60 Tablet 3 06/20/2024 Active Lenalidomide 10 MG Oral Capsule (Revlimid)Indic ations:Smolderi ng multiple myeloma (SMM) TAKE 1 CAPSULE BY MOUTH 1 TIME A DAY IN THE MORNING FOR 14 DAYS ON THEN 7 DAYS OFF 14 Capsule 06/24/2024 Active Additional Information Patient not taking.Reported on 06/29/2024 levoFLOXacin 500 MG Oral Tablet (Levaquin)Indic ations:Multiple myeloma not having achieved remission (HCC) Take 1 Tablet by mouth in the morning. 14 Tablet 1 06/27/2024 Active Aspirin 81 MG Oral Tablet Delayed ReleaseIndicati ons:Smoldering multiple myeloma (SMM) Take 1 Tablet by mouth in the morning. 30 Tablet 05/25/2023 07/19/20 24 Discontinued documented as of this encounter (statuses as of 07/23/2024) Active Problems Problem Noted Date Diagnosed Date [...] as of this encounter (statuses as of 07/23/2024) Resolved Problems Problem Noted Date Diagnosed Date Resolved Date Prediabetes 10/26/2023 12/31/2023 Overview: Per Prediabetes protocol Hypertensive kidney disease with stage 3a chronic kidney disease 07/02/2023 03/29/2024 Lesion of pancreas 12/09/2022 documented as of this encounter (statuses as of 07/23/2024) Immunizations Name Administration Dates Next Due COVID-19 [...] the money to buy more. Never true 11/15/20 23 Within the past 12 months, t [...] Sign Reading Time Taken Comments Blood Pressure 147/75 07/04/2024 11:19 AM EDT Pulse 61 07/04/2024 11:19 AM EDT Temperature 35.9 C (96.6 F) 07/04/2024 11:19 AM E DT Respiratory Rate 18 07/04/2024 11:19 AM EDT Oxygen Saturation 99% 07/04/2024 11:19 AM EDT Inhaled Oxygen Concentration - - Weight 92.8 kg (204 lb 9.6 oz) 07/04/2024 11:19 AM EDT Height - - Body Mass Index 27.74 05/27/2024 9:16 AM EDT documented in this encounter Nursing Notes * Verenice [place] RN - 07/04/2024 1:38 PM EDT Goals: Patient will remain free from injury. Possible barriers to meeting goals: Ambulating with IV pole and IV benadryl Stability of the patient: Moderately stable - low risk of patient condition declining or worsening Summary regarding today's goals: Met: Patient remained free of harm today Patient stayed for 2 hour obs and no issues noted. Pt discharged in stable condition. * Verenice [place] RN - 07/04/2024 11:20 AM EDT Chair 10 Patient arrived, PIV placed after 2 attempts NSS infusing. Chemotherapy/Immunotherapy agents: DARZALEX and VELCADE Consent for chemotherapy drug treatment complete, dated, and signed? yes, date - 06/01/24 Treatment lab parameters met? No, ANC 1.08- Ok to treat per Dr. Aguiar. Continue to hold PO Revlimid Has treatment weight changed > than 10%? No Treatment preauthorized? Yes VITALS Filed Vitals: 07/04/24 1119 BP: 147/75 Pulse: 61 Resp: 18 Temp: 35.9 C (96.6 F) SpO2: 99% Weight: 92.8 kg (204 lb 9.6 oz) Urine protein: N/A Patient education completed for [...] function. PRE-TREATMENT ASSESSMENT: NEURO: denies symptoms CV/RESP: OTHER: overall cold improving, occasional cough remains GI/: denies symptoms OTHER: denies any additional symptoms PAIN: 0 Safety and Risk for Injury Patient will remain free from injury. Ensure appropriate safety devices are available. Provide and maintain safe environment. documented in this encounter Plan of Treatment Upcoming Encounters Date Type Department Care Team (Latest Contact Info) Description 07/25/2024 8:00 AM EDT Laboratory Laboratory [facility] [address] [place] [address] [phone] Laure, Lab Scenery [address] [place] [address] 07/25/2024 9:00 AM EDT Hem/Onc Treatment Hematology/Oncolog y Treatment, [address] [place] [phone] Park, Chair 3 Hem Onc [facility] [address] [place] [address] [address] 07/28/2024 8:00 AM EDT Laboratory Laboratory [facility] [place] [address] [place] [address] [phone] Laure, Lab [facility] [address] [place] [address] [address] 07/28/2024 9:00 AM EDT Hem/Onc Treatment Hematology/Oncolog y Treatment, [place] 200 [facility] [place] [address] Laure, Chair 6 Hem Onc Scenery [address] [place] [address] [address] [address] 08/01/2024 7:20 AM EDT Laboratory Laboratory [facility] Laure [place] [address] [place] [phone] Laure, Lab Scenery [address] [facility] [place] [address] 08/01/2024 8:00 AM EDT Office Visit Hematology/Oncolog y [facility] Laure [place] [address] [place] [phone] Abbey Aguiar MD [address] [place] [address] 08/01/2024 8:30 AM EDT Hem/Onc Treatment Hematology/Oncolog y [facility], [place] [address] [place] [phone] Laure, Chair 5 Hem Onc Scenery [address] [place] [address] 08/08/2024 9:00 AM EDT Pharmacy Pharmacy Hematology Oncology [place] [address] [place] [address] [facility] Hem/Onc [address] [place] [address] 08/23/2024 10:00 AM EDT Office Visit Family Practice 65 [facility] [place] 293 [facility] [place] [address] Jean Claude Yao, 293 [place] [address] 09/08/2024 2:30 PM EDT Hospital Encounter ENDO [facility], Endoscopy Room [facility] [address] [place] [phone] Irving Iyer MD 132 [facility] [place] [address] 09/08/2024 2:30 PM EDT - 09/08/2024 3:00 PM EDT Surgery ENDO [facility], Endoscopy Room [facility] [address] [place] [phone] Irving Iyer MD [address] [place] [address] COLONOSCOPY FLEXIBLE PROXIMAL DIAGNOSTIC 03/13/2025 11:00 AM EDT Office Visit Sleep Disorders Ctr [facility] [address] [place] [phone] Ruma Orellana DO [address] [place] [address] Scheduled Procedures Name Priority Associated Diagnoses Date/Ti me COLONOSCOPY FLEXIBLE PROXIMAL DIAGNOSTIC Recall History of colonic polyps 09/08/2024 2:30 PM EDT Health Maintenance Due Date Last Done Comments Cologuard 1997 Fecal Occult Blood Test 1997 Sigmoidoscopy 1997 Adult Wellness Visit 2018 COVID-19 Vaccine (3 - Moderna risk series) 04/19/2021 03/22/2021, 02/21/2021 Zoster Vaccines (2 of 2) 02/03/2023 12/09/2022, 11/2011 CKD PHOS USE SMARTSET 50247 06/15/2024 06/15/2023 Colonoscopy 06/29/2024 06/29/2023, 06/16, 03/16/2023, Additional history exists Colorectal Cancer Screening 06/29/2024 Influenza Vaccine (FLU shot) (#1) 2024 08/03/2023, 08/08/2022 HbA1c 09/29/2024 03/29/2024, 1211/2022, 06/15/2023 Depression Screening 09/30/2024 09/30/2023 GFR 01/19/2025 07/22/2024, 0901/2024, 07/11/2024, Additional history exists Diabetic Eye Exam 01/20/2025 01/21/2024, , 05/26/2022 Diabetic Foot Exam 04/12/2025 04/12/2024, 04/12/2024 Albumin/Creatinine Ratio 05/09/2025 06/ 024, 06/15/2023, 06/03/2022 CKD HGB USE SMARTSET 77881 07/22/202507/22, 07/22/2024, 07/19/2024, Additional history exists DTap/Tdap [...] this encounter Medical Devices Implanted Type Area Specialized Language Instructor Device Identifier Shelf Expiration Date Model / Serial / Lot Sureclip 16mm 235cm - [id number] Implanted:Qty: 1 on 03/16/2023 by Irving Iyer MD at OR [facility] MICRO TECH ENDOSCOPY [id number] 05/19/2025 [id number] / / [id number] Duraclip 16mm Xlg Repostn - [id number] Implanted:Qty: 1 on 03/16/2023 by Irving Iyer MD at OR [facility] [employer] [id number] 05/18/2024 [id number] / / [id number] Duraclip 16mm Xlg Repostn - [id number] Implanted:Qty: 1 on 03/16/2023 by Irving Iyer MD at OR [facility] [employer] [id number] 05/18/2024 [id number] / / [id number] Duraclip 16mm Xlg Repostn - [id number] Implanted:Qty: 1 on 03/16/2023 by Irving Iyer MD at OR [facility] [employer] [id number] 05/18/2024 [id number] / / [id number] Duraclip 16mm Xlg Repostn - [id number] Implanted:Qty: 1 on 03/16/2023 by Irving Iyer MD at OR [facility] [employer] [id number] 05/18/2024 [id number] / / [id number] Duraclip 16mm Xlg Repostn - [id number] Implanted:Qty: 1 on 03/16/2023 by Irving Iyer MD at OR [facility] [employer] [id number] 05/18/2024 [id number] / / [id number] Duraclip 16mm Xlg Repostn - [id number] Implanted:Qty: 1 on 03/16/2023 by Irving Iyer MD at OR [facility] [employer] [id number] 05/19/2024 [id number] / / [id number] Duraclip 16mm Xlg Repostn - [id number] Implanted:Qty: 1 on 03/16/2023 by Irving Iyer MD at OR [facility] [employer] [id number] 05/19/2024 [id number] / / [id number] Duraclip 16mm Xlg Repostn - [id number] Implanted:Qty: 1 on 03/16/2023 by Irving Iyer MD at OR [facility] [employer] [id number] 05/19/2024 [id number] / / [id number] Duraclip 16mm Xlg Repostn - [id number] Implanted:Qty: 1 on 03/16/2023 by Irving Iyer MD at OR [facility] [employer] [id number] 05/18/2024 [id number] / / [id number] Duraclip 16mm Xlg Repostn - [id number] Implanted:Qty: 1 on 03/16/2023 by Irving Iyer MD at OR [facility] [employer] [id number] 05/18/2024 [id number] / / [id number] Duraclip 16mm Xlg Repostn - [id number] Implanted:Qty: 1 on 03/16/2023 by Irving Iyer MD at OR [facility] [employer] [id number] 05/18/2024 [id number] / / [id number] Duraclip 16mm Xlg Repostn - [id number] Implanted:Qty: 1 on 03/16/2023 by Irving Iyer MD at OR [facility] [employer] [id number] 05/18/2024 [id number] / / [id number] Duraclip 16mm Xlg Repostn - [id number] Implanted:Qty: 1 on 03/16/2023 by Irving Iyer MD at OR [facility] [employer] [id number] 05/18/2024 [id number] / / [id number] documented as of this encounter Visit Diagnoses [...] 650 mg 650 mg, Oral, ONCE, On Thu07/04/24 at 1100, For 1 dose, Maximum of 4 grams (4000 mg) per day. Given 07/04/2024 10:16 AM EDT 650 mg Bortezomib (Velcade) 2.5 mg/mL subQ inj 2.75 mg 2.75 mg (rounded from 2.821 mg = 1.3 mg/m2 2.17 m2 Treatment Plan BSA from Recorded weight), Subcutaneous, ONCE, On Thu07/04/24 at 1130, For 1 dose, Administer subcutaneously in thigh or abdomen-rotate site Given 07/04/2024 10:54 AM EDT 2.75 mg Abdomen Right Lower Daratumumab-hyaluronidase- fihj (Darzalex Faspro) 1800 mg-03226 units/ 15 ml subcut inj 15 mL, Subcutaneous, ONCE, On Thu07/04/24 at 1200, For 1 dose, Inject subcutanteously into abdomen over 3 to 5 minutes Given 07/04/2024 10:53 AM EDT 15 mL Abdomen Left Lower dexAMETHasone (Decadron) tab 20 mg 20 mg, Oral, ONCE, On Thu07/04/24 at 1100, For 1 dose Given 07/04/2024 10:15 AM EDT 20 mg diphenhydrAMINE (Benadryl) inj 50 mg 50 mg, IV Push, ONCE, On Thu07/04/24 at 1030, For 1 dose Given 07/04/2024 10:15 AM EDT 50 mg documented in this encounter Care Teams Ase Certified Technician Relationship Specialty Start Date End Date Jean Claude Yao DO [address] [place] [address] PCP - General Internal Medicine 05/09/24 documented as of this encounter
--- OUTSIDE RECORDS SUMMARY | 2024-07-27 10:38 | External Medical Summary | Summary of Care ---
Author Name Unknown Organization [facility] Address [address] [place] [address] Phone [phone] Care Team Providers Care Padded Box Sewer Name Role Phone Jean Claude Yao DO Primary Care Provider [phone] Reason for Visit * Reason Comments Chemotherapy C1/D1 - DaraVRd * Episode Based Medications (Routine) - Authorized Specialty Diagnoses / Procedures Referred By Contac t Referred To Contact Diagnoses Multiple myeloma not having achieved remission (HCC) Encounter for antineoplastic chemotherapy Procedures OR DARATUMUMAB, HYALURONIDASE OR INJECTION, BORTEZOMIB, 0.1MG Abbey Aguiar MD [address] [facility] [place] [address] Anc Hem/Onc [facility] Laure [address] [place] [phone] Referral ID Status Reason Start Date Expiration Date V isits Requested Visits Authorized [id number] Authorized 06/03/2024 06/03/[phone] Encounter Details Date Type Department Care Team (Latest Contact Info) Description 06/20/2024 9:30 AM EDT Hem/Onc Treatment Hematology/Oncolog y Treatment, [address] [address] Laure, Chair 7 Hem Onc [address] [place] [address] Multiple myeloma not having achieved remission (HCC)*; Encounter for antineoplastic chemotherapy Allergies No known active allergiesdocumented as of this encounter (statuses as of 07/24/2024) Medications Medication Sig Dispensed Refills Start Date [...] a week. 20 Tablet 5 4 Active Aspirin 81 MG Oral Tablet Delayed ReleaseIndicat ions:Smolderin g multiple myeloma (SMM) Take 1 Tablet by mouth in the morning. 30 Tablet 3 07/19/20 24 Discontinued Acyclovir 400 MG Oral Tablet (Zovirax)Indic ations:Smolder ing multiple myeloma (SMM) Take 1 Tablet by mouth in the morning and 1 Tablet before bedtime. 60 Tablet 5 4 06/20/20 24 Discontinued(Ref ill) Lenalidomide 10 MG Oral Capsule (Revlimid)Pily cations:Smolde ring multiple myeloma (SMM) Take 1 Capsule by mouth in the morning. Days 1-21 every 28 days. 21 Capsule 4 06/24/20 24 Discontinued(Med ication/Dose Changed) documented as of this encounter (statuses as of 07/24/2024) Active Problems Problem Noted Date Diagnosed Date [...] as of this encounter (statuses as of 07/24/2024) Resolved Problems Problem Noted Date Diagnosed Date Resolved Date Prediabetes 10/26/2023 12/31/2023 Overview: Per Prediabetes protocol Hypertensive kidney disease with stage 3a chronic kidney disease 07/02/2023 03/29/2024 Lesion of pancreas 12/09/2022 documented as of this encounter (statuses as of 07/24/2024) Immunizations Name Administration Dates Next Due COVID-19 [...] Sign Reading Time Taken Comments Blood Pressure 127/74 06/20/2024 9:57 AM EDT Pulse 61 06/20/2024 9:57 AM EDT Temperature 36.4 C (97.5 F) 06/20/2024 9:57 AM ED T Respiratory Rate 16 06/20/2024 9:57 AM EDT Oxygen Saturation 97% 06/20/2024 9:57 AM EDT Inhaled Oxygen Concentration - - Weight 93.3 kg (205 lb 9.6 oz) 06/20/2024 9:57 A M EDT Height - - Body Mass Index 27.88 05/27/2024 9:16 AM EDT documented in this encounter Nursing Notes * Leni Sanchez RN - 06/20/2024 3:30 PM EDT Goals: Patient will remain free from injury. Possible barriers to meeting goals: ambulating with IV pole Stability of the patient: Moderately stable - low risk of patient condition declining or worsening Summary regarding today's goals: Met: pt remained free of harm today Patient tolerated treatment well without any acute issues or problems. Patient left facility in stable condition and denied any further needs. * Leni Sanchez RN - 06/20/2024 10:11 AM EDT Chair 2. Patient presents today for first cycle of chemotherapy. Patient was educated about establishing IV access, giving premeds, taking PRN home medications, process of getting medication from pharmacy, layout of treatment room, use of call ramirez, etc. Patient communicated understanding and denied any further questions, concerns, needs. IV inserted. Chemotherapy/Immunotherapy agents: DARZALEX and VELCADE Consent for chemotherapy drug treatment complete, dated, and signed? yes, date - 2024 Treatment lab parameters met? Yes -- reviewed all labs with Dr. Aguiar, including platelets of 93, okay to tx per Dr. Aguiar Has treatment weight changed > than 10%? No Treatment preauthorized? Yes VITALS Filed Vitals: 06/20/24 0957 BP: 127/74 Pulse: 61 Resp: 16 Temp: 36.4 C (97.5 F) TempSrc: Tympanic SpO2: 97% Weight: 93.3 kg (205 lb 9.6 oz) Urine protein: N/A Patient [...] symptoms or adverse side effects during treatment. PRE-TREATMENT ASSESSMENT: NEURO: denies symptoms CV/RESP: denies symptoms GI/: denies symptoms OTHER: denies any additional symptoms PAIN: 0 Patient Education: Patient instructed on use of heat and massage functions where applicable. Patient shown how to operate the heat function of the chair and to alert nursing staff if the chair feels too warm. Patient instructed on the risk of potential yadav while using the heat function. Safety and Risk for Injury Patient will remain free from injury. Ensure appropriate safety devices are available. Provide and maintain safe environment. documented in this encounter Plan of Treatment Upcoming Encounters Date Type Department Care Team (Latest Contact Info) Description 07/25/2024 8:00 AM EDT Laboratory Laboratory [facility] [place] [address] [place] [address] Laure, Lab [facility] [address] [facility] [place] [address] 07/25/2024 9:00 AM EDT Hem/Onc Treatment Hematology/Oncolog y Treatment, [address] [place] [address] Laure, Chair 3 Hem Onc [facility] [address] [place] [address] 07/28/2024 8:00 AM EDT Laboratory Laboratory [facility] La[place] [address] [phone] Laure, Lab [facility] [address] [facility] [place] [address] 07/28/2024 9:00 AM EDT Hem/Onc Treatment Hematology/Oncolog y Treatment, [address] [place] [phone] Laure, Chair 6 Hem Onc Scenery [address] [place] [address] 08/01/2024 7:20 AM EDT Laboratory Laboratory [facility] La[place] [address] [place] [phone] Laure, Lab Scenery [address] [facility] [place] [address] 08/01/2024 8:00 AM EDT Office [facility] [place] [address] [place] [phone] Abbey Aguiar MD [address] [place] [address] 08/01/2024 8:30 AM EDT Hem/Onc Treatment Hematology/Oncolog y Treatment, [place] [address] [place] [phone] Laure, Chair 5 Hem Onc Scenery [address] [place] [address] 08/08/2024 9:00 AM EDT Pharmacy Pharmacy Hematology Oncology [facility] [address] [place] [address] [facility] Hem/Onc [address] [place] [address] 08/23/2024 10:00 AM EDT Office Visit Family Practice [address], [place] 293 [place] [phone] Jean Claude Yao DO 293 [place] [address] 09/08/2024 2:30 PM EDT Hospital Encounter ENDO [facility], Endoscopy Room [facility] [address] [place] [address] Irving Iyer MD [address] [place] [address] 09/08/2024 2:30 PM EDT - 09/08/2024 3:00 PM EDT Surgery ENDO [facility], Endoscopy Room [facility] [address] [place] [phone] Irving Iyer MD [address] [place] [address] COLONOSCOPY FLEXIBLE PROXIMAL DIAGNOSTIC 03/13/2025 11:00 AM EDT Office Visit Sleep Disorders Ctr [facility] [address] [place] [phone] Ruma Orellana DO [address] [place] [address] Scheduled Procedures Name Priority Associated Diagnoses Date/Ti me COLONOSCOPY FLEXIBLE PROXIMAL DIAGNOSTIC Recall History of colonic polyps 09/08/2024 2:30 PM EDT Health Maintenance Due Date Last Done Comments Cologuard 1997 Fecal Occult Blood Test 1997 Sigmoidoscopy 1997 Adult Wellness Visit 2018 COVID-19 Vaccine (3 - Moderna risk series) 04/19/2021 03/22/2021, 02/21/2021 Zoster Vaccines (2 of 2) 02/03/2023 12/09/2022, 120 11/2011 CKD PHOS USE SMARTSET 18743 06/15/2024 06/15/2023 Colonoscopy 06/29/2024 06/29/2023, 06/16, 03/16/2023, Additional history exists Colorectal Cancer Screening 06/29/2024 Influenza Vaccine (FLU shot) (#1) 2024 08/03/2023, 08/08/2022 HbA1c 09/29/2024 03/29/2024, 120 11/2022, 06/15/2023 Depression Screening 09/30/2024 09/30/2023 GFR 01/19/2025 07/22/2024, 01/2024, 07/11/2024, Additional history exists Diabetic Eye Exam 01/20/2025 01/21/2024, , 05/26/2022 Diabetic Foot Exam 04/12/2025 04/12/2024, 04/12/2024 Albumin/Creatinine Ratio 05/09/2025 024, 06/15/2023, 06/03/2022 CKD HGB USE SMARTSET 18006 07/22/202507/22, 07/22/2024, 07/19/2024, Additional history exists DTap/Tdap [...] this encounter Medical Devices Implanted Type Area Trade Embalmer Device Identifier Shelf Expiration Date Model / Serial / Lot Sureclip 16mm 235cm - [id number] Implanted:Qty: 1 on 03/16/2023 by Irving Iyer MD at OR [facility] MICRO TECH ENDOSCOPY [id number] 05/19/2025 [id number] / / [id number] Duraclip 16mm Xlg Repostn - [id number] Implanted:Qty: 1 on 03/16/2023 by Irving Iyer MD at OR [facility] [employer] [id number] 05/18/2024 [id number] / / [id number] Duraclip 16mm Xlg Repostn - [id number] Implanted:Qty: 1 on 03/16/2023 by Irving Iyer MD at OR [facility] [employer] [id number] 05/18/2024 [id number] / / [id number] Duraclip 16mm Xlg Repostn - [id number] Implanted:Qty: 1 on 03/16/2023 by Irving Iyer MD at OR [facility] [employer] [id number] 05/18/2024 [id number] / / [id number] Duraclip 16mm Xlg Repostn - [id number] Implanted:Qty: 1 on 03/16/2023 by Irving Iyer MD at OR [facility] [employer] [id number] 05/18/2024 [id number] / / [id number] Duraclip 16mm Xlg Repostn - [id number] Implanted:Qty: 1 on 03/16/2023 by Irving Iyer MD at OR [facility] [employer] [id number] 05/18/2024 [id number] / / [id number] Duraclip 16mm Xlg Repostn - [id number] Implanted:Qty: 1 on 03/16/2023 by Irving Iyer MD at OR [facility] [employer] [id number] 05/19/2024 [id number] / / [id number] Duraclip 16mm Xlg Repostn - [id number] Implanted:Qty: 1 on 03/16/2023 by Irving Iyer MD at OR [facility] [employer] [id number] 05/19/2024 [id number] / / [id number] Duraclip 16mm Xlg Repostn - [id number] Implanted:Qty: 1 on 03/16/2023 by Irving Iyer MD at OR [facility] [employer] [id number] 05/19/2024 [id number] / / [id number] Duraclip 16mm Xlg Repostn - [id number] Implanted:Qty: 1 on 03/16/2023 by Irving Iyer MD at OR [facility] [employer] [id number] 05/18/2024 [id number] / / [id number] Duraclip 16mm Xlg Repostn - [id number] Implanted:Qty: 1 on 03/16/2023 by Irving Iyer MD at OR [facility] [employer] [id number] 05/18/2024 [id number] / / [id number] Duraclip 16mm Xlg Repostn - [id number] Implanted:Qty: 1 on 03/16/2023 by Irving Iyer MD at OR [facility] [employer] [id number] 05/18/2024 [id number] / / [id number] Duraclip 16mm Xlg Repostn - [id number] Implanted:Qty: 1 on 03/16/2023 by Irving Iyer MD at OR [facility] [employer] [id number] 05/18/2024 [id number] / / [id number] Duraclip 16mm Xlg Repostn - [id number] Implanted:Qty: 1 on 03/16/2023 by Irving Iyer MD at OR [facility] [employer] [id number] 05/18/2024 [id number] / / [id number] documented as of this encounter Visit Diagnoses [...] 650 mg 650 mg, Oral, ONCE, On Thu06/20/24 at 1115, For 1 dose, Maximum of 4 grams (4000 mg) per day. Given 06/20/2024 10:23 AM EDT 650 mg Bortezomib (Velcade) 2.5 mg/mL subQ inj 2.75 mg 2.75 mg (rounded from 2.821 mg = 1.3 mg/m2 2.17 m2 Treatment Plan BSA from Recorded weight), Subcutaneous, ONCE, On Thu06/20/24 at 1145, For 1 dose, Administer subcutaneously in thigh or abdomen-rotate site Given 06/20/2024 11:13 AM EDT 2.75 mg Abdomen Left Lower Daratumumab-hyaluronida se-fihj (Darzalex Faspro) 1800 mg-93231 units/ 15 ml subcut inj 15 mL, Subcutaneous, ONCE, On Thu06/20/24 at 1215, For 1 dose, Inject subcutanteously into abdomen over 3 to 5 minutes Given 06/20/2024 11:12 AM EDT 15 mL Abdomen Right Lower dexamethasone sodium phosphate 20 mg in NSS 50 mL ivpb 20 mg, IV Piggyback, ONCE, On Thu06/20/24 at 1115, For 1 dose, PROTECT FROM LIGHT Infuse over 30 minutes! Start Infusion 06/20/2024 10:27 AM EDT 20 mg 108 mL/hr diphenhydrAMINE (Benadryl) inj 50 mg 50 mg, IV Push, ONCE, On Thu06/20/24 at 1115, For 1 dose Given 06/20/2024 10:25 AM EDT 50 mg Famotidine (Pepcid) tab 20 mg 20 mg, Oral, ONCE, On Thu06/20/24 at 1115, For 1 dose Given 06/20/2024 10:23 AM EDT 20 mg NSS infusion Intravenous, at 50 mL/hr, PRN, Starting on Thu06/20/24 at 1115, Until Thu06/20/24 at 1935, Maintenance line Start Infusion 06/20/2024 10:23 AM EDT 50 mL/hr documented in this encounter Care Teams Padded Box Sewer Relationship Specialty Start Date End Date Jean Claude Yao DO [address] [place] [address] PCP - General Internal Medicine 05/09/24 documented as of this encounter
--- OUTSIDE RECORDS SUMMARY | 2024-07-27 10:38 | External Medical Summary | Summary of Care ---
Author Name Unknown Organization [facility] Address [address] [place] [address] Phone [phone] Care Team Providers Care Individual Small Group Instructor Name Role Phone Jean Claude Yao DO Primary Care Provider [phone] Reason for Visit * Reason Comments Chemotherapy C1 D8 Darzalex Faspr o/ velcade * Episode Based Medications (Routine) - Authorized Specialty Diagnoses / Procedures Referred By Felicita t Referred To Contact Diagnoses Multiple myeloma not having achieved remission (HCC) Encounter for antineoplastic chemotherapy Procedures SD DARATUMUMAB, HYALURONIDASE SD INJECTION, BORTEZOMIB, 0.1MG Abbey Aguiar MD 200 [facility] [place] [address] Anc Hem/Onc [facility] Laure [address] [place] [phone] Referral ID Status Reason Start Date Expiration Date V isits Requested Visits Authorized [id number] Authorized 06/03/2024 06/03/[phone] Encounter Details Date Type Department Care Team (Latest Contact Info) Description 07/04/2024 9:00 AM EDT Hem/Onc Treatment Hematology/Oncolog y Treatment, [address] [address] Laure, Chair 10 Hem Onc [address] [place] [address] Multiple myeloma not having achieved remission [...] Description 07/25/2024 8:00 AM EDT Laboratory Laboratory [facility] [address] [place] [phone] Laure, Lab Scenery [address] [place] [address] 07/25/2024 9:00 AM EDT Hem/Onc Treatment Hematology/Oncolog y Treatment, [address] [place] [phone] Park, Chair 3 Hem Onc [facility] [address] [place] [address] [address] 07/28/2024 8:00 AM EDT Laboratory Laboratory [facility] [place] [address] [place] [address] Laure, Lab [facility] [address] [place] [address] [address] [address] 07/28/2024 9:00 AM EDT Hem/Onc Treatment Hematology/Oncolog y Treatment, [place] 200 [facility] [place] [address] Laure, Chair 6 Hem Onc Scenery [address] [place] [address] [address] [address] 08/01/2024 7:20 AM EDT Laboratory Laboratory [facility] Laure [place] [address] [place] [phone] Laure, Lab Scenery [address] [facility] [place] [address] 08/01/2024 8:00 AM EDT Office Visit Hematology/Oncolog y [facility] [place] [address] [place] [address] Abbey Aguiar MD [address] [place] [address] 08/01/2024 8:30 AM EDT Hem/Onc Treatment Hematology/Oncolog y [facility], [place] [address] [place] [phone] Laure, Chair 5 Hem Onc Scenery [address] [place] [address] 08/08/2024 9:00 AM EDT Pharmacy Pharmacy Hematology Oncology [place] [address] [place] [address] [facility] Hem/Onc [address] [place] [address] 08/23/2024 10:00 AM EDT Office Visit Family Practice [facility], [place] [address] [place] [address] Jean Claude Yao, 293 [place] [address] 09/08/2024 2:30 PM EDT Hospital Encounter ENDO [facility], Endoscopy Room [facility] [address] [place] [phone] Irving Iyer MD 132 [facility] [place] [address] 09/08/2024 2:30 PM EDT - 09/08/2024 3:00 PM EDT Surgery ENDO [facility], Endoscopy Room [facility] [address] [place] [phone] Irving Iyer MD [address] [place] [address] COLONOSCOPY FLEXIBLE PROXIMAL DIAGNOSTIC 03/13/2025 11:00 AM EDT Office Visit Sleep Disorders Ctr [facility] [address] [place] [phone] Ruma Orellana DO [address] [place] [address] Scheduled Procedures Name Priority Associated Diagnoses Date/Ti me COLONOSCOPY FLEXIBLE PROXIMAL DIAGNOSTIC Recall History of colonic polyps 09/08/2024 2:30 PM EDT Health Maintenance Due Date Last Done Comments Cologuard 1997 Fecal Occult Blood Test 1997 Sigmoidoscopy 1997 Adult Wellness Visit 2018 COVID-19 Vaccine (3 - Moderna risk series) 04/19/2021 03/22/2021, 02/21/2021 Zoster Vaccines (2 of 2) 02/03/2023 12/09/2022, 11/2011 CKD PHOS USE SMARTSET 81258 06/15/2024 06/15/2023 Colonoscopy 06/29/2024 06/29/2023, 06/16, 03/16/2023, Additional history exists Colorectal Cancer Screening 06/29/2024 Influenza Vaccine (FLU shot) (#1) 2024 08/03/2023, 08/08/2022 HbA1c 09/29/2024 03/29/2024, 1211/2022, 06/15/2023 Depression Screening 09/30/2024 09/30/2023 GFR 01/19/2025 07/22/2024, 0901/2024, 07/11/2024, Additional history exists Diabetic Eye Exam 01/20/2025 01/21/2024, , 05/26/2022 Diabetic Foot Exam 04/12/2025 04/12/2024, 04/12/2024 Albumin/Creatinine Ratio 05/09/2025 06/ 024, 06/15/2023, 06/03/2022 CKD HGB USE SMARTSET 03943 07/22/202507/22, 07/22/2024, 07/19/2024, Additional history exists DTap/Tdap [...] this encounter Medical Devices Implanted Type Area Rod Hanger Device Identifier Shelf Expiration Date Model / Serial / Lot Sureclip 16mm 235cm - [id number] Implanted:Qty: 1 on 03/16/2023 by Irving Iyer MD at OR [facility] MICRO TECH ENDOSCOPY [id number] 05/19/2025 [id number] / / [id number] Duraclip 16mm Xlg Repostn - [id number] Implanted:Qty: 1 on 03/16/2023 by Irving Iyer MD at OR [facility] [employer] [id number] 05/18/2024 [id number] / / [id number] Duraclip 16mm Xlg Repostn - [id number] Implanted:Qty: 1 on 03/16/2023 by Irving Iyer MD at OR [facility] [employer] [id number] 05/18/2024 [id number] / / [id number] Duraclip 16mm Xlg Repostn - [id number] Implanted:Qty: 1 on 03/16/2023 by Irving Iyer MD at OR [facility] [employer] [id number] 05/18/2024 [id number] / / [id number] Duraclip 16mm Xlg Repostn - [id number] Implanted:Qty: 1 on 03/16/2023 by Irving Iyer MD at OR [facility] [employer] [id number] 05/18/2024 [id number] / / [id number] Duraclip 16mm Xlg Repostn - [id number] Implanted:Qty: 1 on 03/16/2023 by Irving Iyer MD at OR [facility] [employer] [id number] 05/18/2024 [id number] / / [id number] Duraclip 16mm Xlg Repostn - [id number] Implanted:Qty: 1 on 03/16/2023 by Irving Iyer MD at OR [facility] [employer] [id number] 05/19/2024 [id number] / / [id number] Duraclip 16mm Xlg Repostn - [id number] Implanted:Qty: 1 on 03/16/2023 by Irving Iyer MD at OR [facility] [employer] [id number] 05/19/2024 [id number] / / [id number] Duraclip 16mm Xlg Repostn - [id number] Implanted:Qty: 1 on 03/16/2023 by Irving Iyer MD at OR [facility] [employer] [id number] 05/19/2024 [id number] / / [id number] Duraclip 16mm Xlg Repostn - [id number] Implanted:Qty: 1 on 03/16/2023 by Irving Iyer MD at OR [facility] [employer] [id number] 05/18/2024 [id number] / / [id number] Duraclip 16mm Xlg Repostn - [id number] Implanted:Qty: 1 on 03/16/2023 by Irving Iyer MD at OR [facility] [employer] [id number] 05/18/2024 [id number] / / [id number] Duraclip 16mm Xlg Repostn - [id number] Implanted:Qty: 1 on 03/16/2023 by Irving Iyer MD at OR [facility] [employer] [id number] 05/18/2024 [id number] / / [id number] Duraclip 16mm Xlg Repostn - [id number] Implanted:Qty: 1 on 03/16/2023 by Irving Iyer MD at OR [facility] [employer] [id number] 05/18/2024 [id number] / / [id number] Duraclip 16mm Xlg Repostn - [id number] Implanted:Qty: 1 on 03/16/2023 by Irving Iyer MD at OR [facility] [employer] [id number] 05/18/2024 [id number] / / [id number] documented as of this encounter Visit Diagnoses [...] Right Lower Daratumumab-hyaluronidase- fihj (Darzalex Faspro) 1800 mg-23292 units/ 15 ml subcut inj 15 mL, [...] mg documented in this encounter Care Teams Individual Small Group Instructor Relationship Specialty Start Date End Date Jean Claude Yao DO [address] [place] [address] PCP - General Internal Medicine 05/09/24 documented as of this encounter
--- OUTSIDE RECORDS SUMMARY | 2024-07-27 10:38 | External Medical Summary | Summary of Care ---
Author Name Unknown Organization [facility] Address [address] [place] [address] Phone [phone] Care Team Providers Care Field Coordinator Name Role Phone Jean Claude Yao DO Primary Care Provider [phone] Reason for Visit * Reason Comments Chemotherapy C1/D1 - DaraVRd * Episode Based Medications (Routine) - Authorized Specialty Diagnoses / Procedures Referred By Contac t Referred To Contact Diagnoses Multiple myeloma not having achieved remission (HCC) Encounter for antineoplastic chemotherapy Procedures OK DARATUMUMAB, HYALURONIDASE OK INJECTION, BORTEZOMIB, 0.1MG Abbey Aguiar MD 200 [facility] [place] [address] Anc Hem/Onc [facility] Laure [address] [place] [phone] Referral ID Status Reason Start Date Expiration Date V isits Requested Visits Authorized [id number] Authorized 06/03/2024 06/03/2025 999 999 Encounter Details Date Type Department Care Team (Latest Contact Info) Description 06/20/2024 9:30 AM EDT Hem/Onc Treatment Hematology/Oncolog y Treatment, [address] [address] Laure, Chair 7 Hem Onc [address] [place] [address] Multiple myeloma not having achieved [...] Description 07/25/2024 8:00 AM EDT Laboratory Laboratory [facility] [place] [address] [place] [address] Laure, Lab [facility] [address] [facility] [place] [address] 07/25/2024 9:00 AM EDT Hem/Onc Treatment Hematology/Oncolog y Treatment, [address] [place] [address] Laure, Chair 3 Hem Onc [facility] [address] [place] [address] 07/28/2024 8:00 AM EDT Laboratory Laboratory [facility] [place] [address] [place] [address] [address] Laure, Lab [facility] [address] [facility] [place] [address] 07/28/2024 9:00 AM EDT Hem/Onc Treatment Hematology/Oncolog y Treatment, [address] [place] [phone] Laure, Chair 6 Hem Onc Scenery [address] [place] [address] 08/01/2024 7:20 AM EDT Laboratory Laboratory [facility] [place] [address] [place] [phone] Laure, Lab Scenery [address] [facility] [place], [place] [address] 08/01/2024 8:00 AM EDT Office Visit Hematology/Oncolog y [facility] [place] [address] [place] [phone] Abbey Aguiar MD [address] [place] [address] 08/01/2024 8:30 AM EDT Hem/Onc Treatment Hematology/Oncolog y Treatment, [place] [address] [place], [place] [phone] Laure, Chair 5 Hem Onc Scenery [address] [place], [place] [address] 08/08/2024 9:00 AM EDT Pharmacy Pharmacy Hematology Oncology [facility] [address] [place] [address] [facility] Hem/Onc [address] [place] [address] 08/23/2024 10:00 AM EDT Office Visit Family Practice [address], [place] 293 [place] [phone] Jean Claude Yao DO 293 [facility] [place] [address] 09/08/2024 2:30 PM EDT Hospital Encounter ENDO [facility], Endoscopy Room [facility] [address] [place] [address] Irving Iyer MD [address] [place] [address] 09/08/2024 2:30 PM EDT - 09/08/2024 3:00 PM EDT Surgery ENDO [facility], Endoscopy Room [facility] [address] [place] [phone] Irving Iyer MD [address] [place] [address] COLONOSCOPY FLEXIBLE PROXIMAL DIAGNOSTIC 03/13/2025 11:00 AM EDT Office Visit [facility] [address] [place] [phone] Ruma Orellana DO [address] [place] [address] Scheduled Procedures Name Priority Associated Diagnoses Date/Ti [...] 12/09/2022, 120 11/2011 CKD PHOS USE SMARTSET 50863 06/15/2024 06/15/2023 Colonoscopy 06/29/2024 06/29/2023, 06/16, 03/16/2023, Additional history exists Colorectal Cancer Screening 06/29/2024 Influenza Vaccine (FLU shot) (#1) 2024 08/03/2023, 08/08/2022 HbA1c 09/29/2024 03/29/2024, 120 11/2022, 06/15/2023 Depression Screening 09/30/2024 09/30/2023 GFR 01/19/2025 07/22/2024, 01/2024, 07/11/2024, Additional history exists Diabetic Eye Exam 01/20/2025 01/21/2024, , 05/26/2022 Diabetic Foot Exam 04/12/2025 04/12/2024, 04/12/2024 Albumin/Creatinine Ratio 05/09/2025 024, 06/15/2023, 06/03/2022 CKD HGB USE SMARTSET 23078 07/22/202507/22, 07/22/2024, 07/19/2024, Additional history exists DTap/Tdap [...] this encounter Medical Devices Implanted Type Area Manager Compensation Device Identifier Shelf Expiration Date Model / Serial / Lot Sureclip 16mm 235cm - [id number] Implanted:Qty: 1 on 03/16/2023 by Irving Iyer MD at OR [facility] MICRO TECH ENDOSCOPY [id number] 05/19/2025 [id number] / / [id number] Duraclip 16mm Xlg Repostn - [id number] Implanted:Qty: 1 on 03/16/2023 by Irving Iyer MD at OR [facility] [employer] [id number] 05/18/2024 [id number] / / [id number] Duraclip 16mm Xlg Repostn - [id number] Implanted:Qty: 1 on 03/16/2023 by Irving Iyer MD at OR [facility] [employer] [id number] 05/18/2024 [id number] / / [id number] Duraclip 16mm Xlg Repostn - [id number] Implanted:Qty: 1 on 03/16/2023 by Irving Iyer MD at OR [facility] [employer] [id number] 05/18/2024 [id number] / / [id number] Duraclip 16mm Xlg Repostn - [id number] Implanted:Qty: 1 on 03/16/2023 by Irving Iyer MD at OR [facility] [employer] [id number] 05/18/2024 [id number] / / [id number] Duraclip 16mm Xlg Repostn - [id number] Implanted:Qty: 1 on 03/16/2023 by Irving Iyer MD at OR [facility] [employer] [id number] 05/18/2024 [id number] / / [id number] Duraclip 16mm Xlg Repostn - [id number] Implanted:Qty: 1 on 03/16/2023 by Irving Iyer MD at OR [facility] [employer] [id number] 05/19/2024 [id number] / / [id number] Duraclip 16mm Xlg Repostn - [id number] Implanted:Qty: 1 on 03/16/2023 by Irving Iyer MD at OR [facility] [employer] [id number] 05/19/2024 [id number] / / [id number] Duraclip 16mm Xlg Repostn - [id number] Implanted:Qty: 1 on 03/16/2023 by Irving Iyer MD at OR [facility] [employer] [id number] 05/19/2024 [id number] / / [id number] Duraclip 16mm Xlg Repostn - [id number] Implanted:Qty: 1 on 03/16/2023 by Irving Iyer MD at OR [facility] [employer] [id number] 05/18/2024 [id number] / / [id number] Duraclip 16mm Xlg Repostn - [id number] Implanted:Qty: 1 on 03/16/2023 by Irving Iyer MD at OR [facility] [employer] [id number] 05/18/2024 [id number] / / [id number] Duraclip 16mm Xlg Repostn - [id number] Implanted:Qty: 1 on 03/16/2023 by Irving Iyer MD at OR [facility] [employer] [id number] 05/18/2024 [id number] / / [id number] Duraclip 16mm Xlg Repostn - [id number] Implanted:Qty: 1 on 03/16/2023 by Irving Iyer MD at OR [facility] [employer] [id number] 05/18/2024 [id number] / / [id number] Duraclip 16mm Xlg Repostn - [id number] Implanted:Qty: 1 on 03/16/2023 by Irving Iyer MD at OR [facility] [employer] [id number] 05/18/2024 [id number] / / [id number] documented as of this encounter Visit Diagnoses [...] Left Lower Daratumumab-hyaluronida se-fihj (Darzalex Faspro) 1800 mg-82585 units/ 15 ml subcut inj 15 mL, [...] mL/hr documented in this encounter Care Teams Field Coordinator Relationship Specialty Start Date End Date Jean Claude Yao DO [address] [place] [address] PCP - General Internal Medicine 05/09/24 documented as of this encounter
--- OUTSIDE RECORDS SUMMARY | 2024-07-27 10:38 | External Medical Summary | Summary of Care ---
Author Name Unknown Organization [facility] Address [address] [place] [address] Phone [phone] Care Team Providers Care Interventional Physiatrist Name Role Phone Jean Claude Yao DO Primary Care Provider [phone] Reason for Visit * Reason Comments Chemotherapy C1 D8 Darzalex Faspr o/ velcade * Episode Based Medications (Routine) - Authorized Specialty Diagnoses / Procedures Referred By Felicita t Referred To Contact Diagnoses Multiple myeloma not having achieved remission (HCC) Encounter for antineoplastic chemotherapy Procedures OK DARATUMUMAB, HYALURONIDASE OK INJECTION, BORTEZOMIB, 0.1MG Abbey Aguiar MD 200 [facility] [place] [address] Anc Hem/Onc [facility] Laure [address] [place] [phone] Referral ID Status Reason Start Date Expiration Date V isits Requested Visits Authorized [id number] Authorized 06/03/2024 06/03/2025 999 999 Encounter Details Date Type Department Care Team (Latest Contact Info) Description 07/04/2024 9:00 AM EDT Hem/Onc Treatment Hematology/Oncolog y Treatment, [address] [address] Laure, Chair 10 Hem Onc [address] [place] [address] Multiple myeloma not having achieved remission [...] Description 07/25/2024 8:00 AM EDT Laboratory Laboratory [facility] [address] [place] [phone] Laure, Lab Scenery [address] [place] [address] 07/25/2024 9:00 AM EDT Hem/Onc Treatment Hematology/Oncolog y Treatment, [address] [place] [phone] [place], Chair 3 Hem Onc [facility] [address] [place] [address] [address] 07/28/2024 8:00 AM EDT Laboratory Laboratory [facility] [place] [address] [place] [address] [address] [address] Laure, Lab [facility] [address] [place] [address] [address] 07/28/2024 9:00 AM EDT Hem/Onc Treatment Hematology/Oncolog y Treatment, [place] 200 [facility] [place] [address] Laure, Chair 6 Hem Onc Scenery [address] [place] [address] 08/01/2024 7:20 AM EDT Laboratory Laboratory [facility] La[place] [address] [place] [phone] Laure, Lab [address] [facility] [place] [address] 08/01/2024 8:00 AM EDT Office Visit Hematology/Oncolog y [facility] Laure [place] [address] [place] [phone] Abbey Aguiar MD [address] [place] [address] 08/01/2024 8:30 AM EDT Hem/Onc Treatment Hematology/Oncolog y [facility], [place] [address] [place] [phone] Laure, Chair 5 Hem Onc Scenery [address] [place] [address] 08/08/2024 9:00 AM EDT Pharmacy Pharmacy Hematology Oncology [place] [address] [place] [address] [facility] Hem/Onc [address] [place] [address] 08/23/2024 10:00 AM EDT Office Visit Family Practice [address] [facility] [place] 293 [facility] [address] Jean Claude Yao, 293 [place] [address] 09/08/2024 2:30 PM EDT Hospital Encounter ENDO [facility], Endoscopy Room [facility] [address] [place] [phone] Irving Iyer MD 132 [facility] [place] [address] 09/08/2024 2:30 PM EDT - 09/08/2024 3:00 PM EDT Surgery ENDO [facility], Endoscopy Room [facility] [address] [place] [phone] Irving Iyer MD [address] [place] [address] COLONOSCOPY FLEXIBLE PROXIMAL DIAGNOSTIC 03/13/2025 11:00 AM EDT Office Visit Sleep Disorders Ctr [facility] [address] [place] [phone] Ruma Orellana DO [address] [place] [address] Scheduled Procedures Name Priority Associated Diagnoses Date/Ti me COLONOSCOPY FLEXIBLE PROXIMAL DIAGNOSTIC Recall History of colonic polyps 09/08/2024 2:30 PM EDT Health Maintenance Due Date Last Done Comments Cologuard 1997 Fecal Occult Blood Test 1997 Sigmoidoscopy 1997 Adult Wellness Visit 2018 COVID-19 Vaccine (3 - Moderna risk series) 04/19/2021 03/22/2021, 02/21/2021 Zoster Vaccines (2 of 2) 02/03/2023 12/09/2022, 11/2011 CKD PHOS USE SMARTSET 41892 06/15/2024 06/15/2023 Colonoscopy 06/29/2024 06/29/2023, 06/16, 03/16/2023, Additional history exists Colorectal Cancer Screening 06/29/2024 Influenza Vaccine (FLU shot) (#1) 2024 08/03/2023, 08/08/2022 HbA1c 09/29/2024 03/29/2024, 1211/2022, 06/15/2023 Depression Screening 09/30/2024 09/30/2023 GFR 01/19/2025 07/22/2024, 0901/2024, 07/11/2024, Additional history exists Diabetic Eye Exam 01/20/2025 01/21/2024, , 05/26/2022 Diabetic Foot Exam 04/12/2025 04/12/2024, 04/12/2024 Albumin/Creatinine Ratio 05/09/2025 06/ 024, 06/15/2023, 06/03/2022 CKD HGB USE SMARTSET 05694 07/22/202507/22, 07/22/2024, 07/19/2024, Additional history exists DTap/Tdap [...] this encounter Medical Devices Implanted Type Area It Web Development Consultant Device Identifier Shelf Expiration Date Model / Serial / Lot Sureclip 16mm 235cm - [id number] Implanted:Qty: 1 on 03/16/2023 by Irving Iyer MD at OR [facility] MICRO TECH ENDOSCOPY [id number] 05/19/2025 [id number] / / [id number] Duraclip 16mm Xlg Repostn - [id number] Implanted:Qty: 1 on 03/16/2023 by Irving Iyer MD at OR [facility] [employer] [id number] 05/18/2024 [id number] / / [id number] Duraclip 16mm Xlg Repostn - [id number] Implanted:Qty: 1 on 03/16/2023 by Irving Iyer MD at OR [facility] [employer] [id number] 05/18/2024 [id number] / / [id number] Duraclip 16mm Xlg Repostn - [id number] Implanted:Qty: 1 on 03/16/2023 by Irving Iyer MD at OR [facility] [employer] [id number] 05/18/2024 [id number] / / [id number] Duraclip 16mm Xlg Repostn - [id number] Implanted:Qty: 1 on 03/16/2023 by Irving Iyer MD at OR [facility] [employer] [id number] 05/18/2024 [id number] / / [id number] Duraclip 16mm Xlg Repostn - [id number] Implanted:Qty: 1 on 03/16/2023 by Irving Iyer MD at OR [facility] [employer] [id number] 05/18/2024 [id number] / / [id number] Duraclip 16mm Xlg Repostn - [id number] Implanted:Qty: 1 on 03/16/2023 by Irving Iyer MD at OR [facility] [employer] [id number] 05/19/2024 [id number] / / [id number] Duraclip 16mm Xlg Repostn - [id number] Implanted:Qty: 1 on 03/16/2023 by Irving Iyre MD at OR [facility] [employer] [id number] 05/19/2024 [id number] / / [id number] Duraclip 16mm Xlg Repostn - [id number] Implanted:Qty: 1 on 03/16/2023 by Irving Iyer MD at OR [facility] [employer] [id number] 05/19/2024 [id number] / / [id number] Duraclip 16mm Xlg Repostn - [id number] Implanted:Qty: 1 on 03/16/2023 by Irving Iyer MD at OR [facility] [employer] [id number] 05/18/2024 [id number] / / [id number] Duraclip 16mm Xlg Repostn - [id number] Implanted:Qty: 1 on 03/16/2023 by Irving Iyer MD at OR [facility] [employer] [id number] 05/18/2024 [id number] / / [id number] Duraclip 16mm Xlg Repostn - [id number] Implanted:Qty: 1 on 03/16/2023 by Irivng Iyer MD at OR [facility] [employer] [id number] 05/18/2024 PF5470Z / / [id number] Duraclip 16mm Xlg Repostn - [id number] Implanted:Qty: 1 on 03/16/2023 by Irving Iyer MD at OR [facility] [employer] [id number] 05/18/2024 [id number] / / [id number] Duraclip 16mm Xlg Repostn - [id number] Implanted:Qty: 1 on 03/16/2023 by Irving Iyer MD at OR [facility] [employer] [id number] 05/18/2024 [id number] / / [id number] documented as of this encounter Visit Diagnoses [...] Right Lower Daratumumab-hyaluronidase- fihj (Darzalex Faspro) 1800 mg-60585 units/ 15 ml subcut inj 15 mL, [...] mg documented in this encounter Care Teams Interventional Physiatrist Relationship Specialty Start Date End Date Jean Claude Yao DO [address] [place] [address] PCP - General Internal Medicine 05/09/24 documented as of this encounter
--- OUTSIDE RECORDS SUMMARY | 2024-07-27 10:38 | External Medical Summary | Summary of Care ---
Author Name Unknown Organization [facility] Address [address] [place] [address] Phone [phone] Care Team Providers Care Sales Demonstrator Name Role Phone Jean Claude Yao DO Primary Care Provider [phone] Reason for Visit * Reason Comments Chemotherapy C1/D1 - DaraVRd * Episode Based Medications (Routine) - Authorized Specialty Diagnoses / Procedures Referred By Contac t Referred To Contact Diagnoses Multiple myeloma not having achieved remission (HCC) Encounter for antineoplastic chemotherapy Procedures CT DARATUMUMAB, HYALURONIDASE CT INJECTION, BORTEZOMIB, 0.1MG Abbey Aguiar MD 200 [facility] [place] [address] Anc Hem/Onc [facility] Laure [address] [place] [phone] Referral ID Status Reason Start Date Expiration Date V isits Requested Visits Authorized [id number] Authorized 06/03/2024 06/03/2025 999 999 Encounter Details Date Type Department Care Team (Latest Contact Info) Description 06/20/2024 9:30 AM EDT Hem/Onc Treatment Hematology/Oncolog y Treatment, [address] [address] Laure, Chair 7 Hem Onc [address] [place] [address] Multiple myeloma not having achieved remission [...] 07/25/2024 8:00 AM EDT Laboratory Laboratory [facility] [place] [address] [place] [address] Laure, Lab [facility] [address] [facility] [place] [address] 07/25/2024 9:00 AM EDT Hem/Onc Treatment Hematology/Oncolog y Treatment, [address] [place] [address] Laure, Chair 3 Hem Onc [facility] [address] [place] [address] 07/28/2024 8:00 AM EDT Laboratory Laboratory [facility] Laure [place] [address] [place] [address] [phone] Laure, Lab [facility] [address] [facility] [place] [address] 07/28/2024 9:00 AM EDT Hem/Onc Treatment Hematology/Oncolog y Treatment, [address] [place] [phone] Laure, Chair 6 Hem Onc [address]enery [address] [place] [address] 08/01/2024 7:20 AM EDT Laboratory Laboratory [facility] Laure [place] [address] [place] [phone] Laure, Lab Scenery [address] [facility] [place], [place] [address] 08/01/2024 8:00 AM EDT Office Visit Hematology/Oncolog y [facility] Laure [place] [address] [place] [phone] Abbey Aguiar MD [address] [place] [address] 08/01/2024 8:30 AM EDT Hem/Onc Treatment Hematology/Oncolog y Treatment, [place] [address] [place], [place] [phone] Laure, Chair 5 Hem Onc [address] [place], [place] [address] 08/08/2024 9:00 AM EDT Pharmacy Pharmacy Hematology Oncology [facility] [address] [place] [address] [facility] Hem/Onc [address] [place] [address] 08/23/2024 10:00 AM EDT Office Visit Family Practice [address], [place] 293 [place] [phone] Jean Claude Yao DO 293 [facility] [address] 09/08/2024 2:30 PM EDT Hospital Encounter ENDO [facility], Endoscopy Room OSS [address] [place] [phone] Irving Iyer MD [address] [place] [address] 09/08/2024 2:30 PM EDT - 09/08/2024 3:00 PM EDT Surgery ENDO [facility], Endoscopy Room [facility] [address] [place] [phone] Irving Iyer MD [address] [place] [address] COLONOSCOPY FLEXIBLE PROXIMAL DIAGNOSTIC 03/13/2025 11:00 AM EDT Office Visit Sleep Disorders Ctr [facility] [address] [place] [phone] Ruma Orellana DO [address] [place] [address] Scheduled Procedures Name Priority Associated Diagnoses Date/Ti [...] 12/09/2022, 120 11/2011 CKD PHOS USE SMARTSET 35597 06/15/2024 06/15/2023 Colonoscopy 06/29/2024 06/29/2023, 06/16, 03/16/2023, Additional history exists Colorectal Cancer Screening 06/29/2024 Influenza Vaccine (FLU shot) (#1) 2024 08/03/2023, 08/08/2022 HbA1c 09/29/2024 03/29/2024, 120 11/2022, 06/15/2023 Depression Screening 09/30/2024 09/30/2023 GFR 01/19/2025 07/22/2024, 01/2024, 07/11/2024, Additional history exists Diabetic Eye Exam 01/20/2025 01/21/2024, , 05/26/2022 Diabetic Foot Exam 04/12/2025 04/12/2024, 04/12/2024 Albumin/Creatinine Ratio 05/09/2025 024, 06/15/2023, 06/03/2022 CKD HGB USE SMARTSET 48902 07/22/202507/22, 07/22/2024, 07/19/2024, Additional history exists DTap/Tdap [...] this encounter Medical Devices Implanted Type Area Mother Tester Device Identifier Shelf Expiration Date Model / Serial / Lot Sureclip 16mm 235cm - [id number] Implanted:Qty: 1 on 03/16/2023 by Irving Iyer MD at OR [facility] MICRO TECH ENDOSCOPY [id number] 05/19/2025 [id number] / / [id number] Duraclip 16mm Xlg Repostn - [id number] Implanted:Qty: 1 on 03/16/2023 by Irving Iyer MD at OR [facility] [employer] [id number] 05/18/2024 [id number] / / [id number] Duraclip 16mm Xlg Repostn - [id number] Implanted:Qty: 1 on 03/16/2023 by Irving Iyer MD at OR [facility] [employer] [id number] 05/18/2024 [id number] / / [id number] Duraclip 16mm Xlg Repostn - [id number] Implanted:Qty: 1 on 03/16/2023 by Irving Iyer MD at OR [facility] [employer] [id number] 05/18/2024 [id number] / / [id number] Duraclip 16mm Xlg Repostn - [id number] Implanted:Qty: 1 on 03/16/2023 by Irving Iyer MD at OR [facility] [employer] [id number] 05/18/2024 [id number] / / [id number] Duraclip 16mm Xlg Repostn - [id number] Implanted:Qty: 1 on 03/16/2023 by Irving Iyer MD at OR [facility] [employer] [id number] 05/18/2024 [id number] / / [id number] Duraclip 16mm Xlg Repostn - [id number] Implanted:Qty: 1 on 03/16/2023 by Irving Iyer MD at OR [facility] [employer] [id number] 05/19/2024 [id number] / / [id number] Duraclip 16mm Xlg Repostn - [id number] Implanted:Qty: 1 on 03/16/2023 by Irving Iyer MD at OR [facility] [employer] [id number] 05/19/2024 [id number] / / [id number] Duraclip 16mm Xlg Repostn - [id number] Implanted:Qty: 1 on 03/16/2023 by Irving Iyer MD at OR [facility] [employer] [id number] 05/19/2024 [id number] / / [id number] Duraclip 16mm Xlg Repostn - [id number] Implanted:Qty: 1 on 03/16/2023 by Irving Iyer MD at OR [facility] [employer] [id number] 05/18/2024 HU6911I / / [id number] Duraclip 16mm Xlg Repostn - [id number] Implanted:Qty: 1 on 03/16/2023 by Irving Iyer MD at OR [facility] [employer] [id number] 05/18/2024 [id number] / / [id number] Duraclip 16mm Xlg Repostn - [id number] Implanted:Qty: 1 on 03/16/2023 by Irving Iyer MD at OR [facility] [employer] [id number] 05/18/2024 [id number] / / [id number] Duraclip 16mm Xlg Repostn - [id number] Implanted:Qty: 1 on 03/16/2023 by Irving Iyer MD at OR [facility] [employer] [id number] 05/18/2024 [id number] / / [id number] Duraclip 16mm Xlg Repostn - [id number] Implanted:Qty: 1 on 03/16/2023 by Irving Iyer MD at OR [facility] [employer] [id number] 05/18/2024 [id number] / / [id number] documented as of this encounter Visit Diagnoses [...] Left Lower Daratumumab-hyaluronida se-fihj (Darzalex Faspro) 1800 mg-38429 units/ 15 ml subcut inj 15 mL, [...] mL/hr documented in this encounter Care Teams Sales Demonstrator Relationship Specialty Start Date End Date Jean Claude Yao DO [address] [place] [address] PCP - General Internal Medicine 05/09/24 documented as of this encounter
--- OUTSIDE RECORDS SUMMARY | 2024-07-27 10:39 | External Medical Summary | Summary of Care ---
Author Name Unknown Organization [facility] Address [address] [place] [address] Phone [phone] Care Team Providers Care Church Organist Name Role Phone Jean Claude Yao DO Primary Care Provider [phone] Reason for Visit * Reason Comments Chemotherapy Velcade * Episode Based Medications (Routine) - Authorized Specialty Diagnoses / Procedures Referred By Contac t Referred To Contact Diagnoses Multiple myeloma not having achieved remission (HCC) Encounter for antineoplastic chemotherapy Procedures RI DARATUMUMAB, HYALURONIDASE RI INJECTION, BORTEZOMIB, 0.1MG Abbey Aguiar MD [address] [facility] [place] [address] Anc Hem/Onc [facility] Laure [address] [place] [phone] Referral ID Status Reason Start Date Expiration Date V isits Requested Visits Authorized [id number] Authorized 06/03/2024 06/03/2025 999 [id number] Encounter Details Date Type Department Care Team (Latest Contact Info) Description 07/07/2024 9:00 AM EDT Hem/Onc Treatment Hematology/Oncolog y Treatment, [address] [address] Laure, Chair 6 Hem Onc [address] [place] [address] Multiple myeloma not having achieved remission (HCC)*; Encounter for antineoplastic chemotherapy Allergies No known active allergiesdocumented as of this encounter (statuses as of 07/21/2024) Medications Medication Sig Dispensed Refills Start Date [...] as of this encounter (statuses as of 07/21/2024) Active Problems Problem Noted Date Diagnosed Date [...] as of this encounter (statuses as of 07/21/2024) Resolved Problems Problem Noted Date Diagnosed Date Resolved Date Prediabetes 10/26/2023 12/31/2023 Overview: Per Prediabetes protocol Hypertensive kidney disease with stage 3a chronic kidney disease 07/02/2023 03/29/2024 Lesion of pancreas 12/09/2022 documented as of this encounter (statuses as of 07/21/2024) Immunizations Name Administration Dates Next Due COVID-19 [...] Passive Smoke Exposure: Past Smokeless Tobacco: Never Tobacco Cessation:Counseling Given: Not Answered Alcohol Use Standard Drinks/Week Comments Yes 0 [...] Sign Reading Time Taken Comments Blood Pressure 149/76 07/07/2024 9:11 AM EDT Pulse 65 07/07/2024 9:11 AM EDT Temperature 36.6 C (97.8 F) 07/07/2024 9:11 AM ED T Respiratory Rate 16 07/07/2024 9:11 AM EDT Oxygen Saturation 97% 07/07/2024 9:11 AM EDT Inhaled Oxygen Concentration - - Weight 95.8 kg (211 lb 3.2 oz) 07/07/2024 9:11 A M EDT Height - - Body Mass Index 28.64 05/27/2024 9:16 AM EDT documented in this encounter Nursing Notes * Jessie Glass, RN - 07/07/2024 9:41 AM EDT Chair 9 Chemotherapy/Immunotherapy agents: VELCADE Consent for chemotherapy drug treatment complete, dated, and signed? yes, date - 06/01/24 Treatment lab parameters met? Yes Has treatment weight changed > than 10%? No Treatment preauthorized? Yes VITALS Filed Vitals: 07/07/24 0911 BP: 149/76 Pulse: 65 Resp: 16 Temp: 36.6 C (97.8 F) TempSrc: Tympanic SpO2: 97% Weight: 95.8 kg (211 lb 3.2 oz) Urine protein: N/A Patient education completed for treatment? Yes Blood transfusion consent signed and complete? NA Return appointment scheduled? Yes Patient had provider visit today? No - If no provider visit must complete Pretreatment Assessment PRE-TREATMENT ASSESSMENT: NEURO: fatigue:stable CV/RESP: shortness of breath: pt c/o SOB with exertion, but states it resolves at rest GI/: denies symptoms OTHER: skin changes:mild skin peeling noted at previous injection site. Skin is intact. PAIN: 0 Velcade administered per order; pt tolerated well. Functional Status: Functional status at today's visit: Restricted in physically strenuous activity but ambulatory and able to carry out work on a light orsedentary nature, e.g. light house work, office work The drug name, dose, volume, and route of administration, expiration date and time, appearance and physical integrity of the drug were verified by me and second sign-in [...] potential yadav while using the heat function. Pt discharged in stable condition. documented in this encounter Plan of Treatment Upcoming Encounters Date Type Department Care Team (Latest Contact Info) Description 07/22/2024 7:50 AM EDT Laboratory Laboratory [facility] [place] [address] [place] [phone] Laure, Lab Scenery [address] [place], [place] [address] 07/22/2024 9:00 AM EDT Hem/Onc Treatment [address]ematology[address] [address] Laure, Chair 6 Hem Onc Scenery [address] [place] [address] 07/25/2024 8:00 AM EDT Laboratory Laboratory [facility] [place] [address] [place] [address] Laure, Lab Scenery [address] [place], [place] [address] 07/25/2024 9:00 AM EDT Hem/Onc Treatment Hematology/Oncolog y Treatment, [address], [place] [address] Laure, Chair 3 Hem Onc Scenery [address] [place], [place] [address] 07/28/2024 8:00 AM EDT Laboratory Laboratory [facility] [place] [address] [place], [place] [address] Laure, Lab Scenery [address] [place] [address] 07/28/2024 9:00 AM EDT Hem/Onc Treatment Hematology/Oncolog y Treatment, [address], [place] [address] Laure, Chair 6 Hem Onc Scenery [address] [place], [place] [address] 08/01/2024 7:20 AM EDT Laboratory Laboratory [facility] Laure [place] [address] [place] [phone] Laure, Lab Scenery [address] [place], [place] [address] 08/01/2024 8:00 AM EDT Office Visit Hematology/Oncolog y [facility] Laure [place] [address] [place], [place] [phone] Abbey Aguiar MD [address] [place] [address] 08/01/2024 8:30 AM EDT [facility] [address] [place], [place] [phone] Laure, Chair 5 Hem Onc Scenery [address] [place], [place] [address] 08/08/2024 9:00 AM EDT Pharmacy Pharmacy Hematology Oncology [facility] [address] [place] [address] [facility], [facility] Hem/Onc [address] [place] [address] 08/23/2024 10:00 AM EDT Office Visit Family Practice [address] [facility], [place] [address] [place] [address] Jean Claude Yao, [address] [place] [address] 09/08/2024 2:30 PM EDT Hospital Encounter ENDO [facility], Endoscopy Room [facility] [address] [place] [phone] Irving Iyer MD [address] [place] [address] 09/08/2024 2:30 PM EDT - 09/08/2024 3:00 PM EDT Surgery ENDO [facility], Endoscopy Room [facility] [address] [place] [phone] Irving Iyer MD [address] [place] [address] COLONOSCOPY FLEXIBLE PROXIMAL DIAGNOSTIC 03/13/2025 11:00 AM EDT Office Visit Sleep Disorders Ctr [facility] [address] [place] [phone] Ruma Orellana DO [address] [place] [address] Scheduled Procedures Name Priority Associated Diagnoses Date/Ti [...] 12/09/2022, 12/0 11/2011 CKD PHOS USE SMARTSET 97720 06/15/2024 06/15/2023 Colonoscopy 06/29/2024 06/29/2023, 06/16, 03/16/2023, Additional history exists Colorectal Cancer Screening 06/29/2024 Influenza Vaccine (FLU shot) (#1) 2024 08/03/2023, 08/08/2022 HbA1c 09/29/2024 03/29/2024, 12/0 11/2022, 06/15/2023 Depression Screening 09/30/2024 09/30/2023 GFR 01/16/2025 07/19/2024, 06/17, 07/07/2024, Additional history exists Diabetic Eye Exam 01/20/2025 01/21/2024, , 05/26/2022 Diabetic Foot Exam 04/12/2025 04/12/2024, 04/12/2024 Albumin/Creatinine Ratio 05/09/2025 024, 06/15/2023, 06/03/2022 CKD HGB USE SMARTSET 02481 07/19/202507/19, 07/19/2024, 07/11/2024, Additional history exists DTap/Tdap Vaccines (3 - [...] this encounter Medical Devices Implanted Type Area Plate Worker Helper Device Identifier Shelf Expiration Date Model / Serial / Lot Sureclip 16mm 235cm - [id number] Implanted:Qty: 1 on 03/16/2023 by Irving Iyer MD at OR [facility] MICRO TECH ENDOSCOPY [id number] 05/19/2025 [id number] / / [id number] Duraclip 16mm Xlg Repostn - [id number] Implanted:Qty: 1 on 03/16/2023 by Irving Iyer MD at OR [facility] [employer] PH[employer]IP [id number] 05/18/2024 [id number] / / [id number] Duraclip 16mm Xlg Repostn - [id number] Implanted:Qty: 1 on 03/16/2023 by Irving Iyer MD at OR [facility] [employer]MED PHILLIP [id number] 05/18/2024 [id number] / / [id number] Duraclip 16mm Xlg Repostn - [id number] Implanted:Qty: 1 on 03/16/2023 by Irving Iyer MD at OR [facility] [employer] [id number] 05/18/2024 [id number] / / [id number] Duraclip 16mm Xlg Repostn - [id number] Implanted:Qty: 1 on 03/16/2023 by Irving Iyer MD at OR [facility] [employer] [id number] 05/18/2024 [id number] / / [id number] Duraclip 16mm Xlg Repostn - [id number] Implanted:Qty: 1 on 03/16/2023 by Irving Iyer MD at OR [facility] [employer] [id number] 05/18/2024 [id number] / / [id number] Duraclip 16mm Xlg Repostn - [id number] Implanted:Qty: 1 on 03/16/2023 by Irving Iyer MD at OR [facility] [employer] [id number] 05/19/2024 [id number] / / [id number] Duraclip 16mm Xlg Repostn - [id number] Implanted:Qty: 1 on 03/16/2023 by Irving Iyer MD at OR [facility] [employer] [id number] 05/19/2024 [id number] / / [id number] Duraclip 16mm Xlg Repostn - [id number] Implanted:Qty: 1 on 03/16/2023 by Irving Iyer MD at OR [facility] [employer] [id number] 05/19/2024 [id number] / / [id number] Duraclip 16mm Xlg Repostn - [id number] Implanted:Qty: 1 on 03/16/2023 by Irving Iyer MD at OR [facility] [employer] [id number] 05/18/2024 [id number] / / [id number] Duraclip 16mm Xlg Repostn - [id number] Implanted:Qty: 1 on 03/16/2023 by Irving Iyer MD at OR [facility] CMP.LYMED PHILLIP [id number] 05/18/2024 [id number] / / [id number] Duraclip 16mm Xlg Repostn - [id number] Implanted:Qty: 1 on 03/16/2023 by Irving Iyer MD at OR [facility] CMP.LYMED PHILLIP [id number] 05/18/2024 [id number] / / [id number] Duraclip 16mm Xlg Repostn - [id number] Implanted:Qty: 1 on 03/16/2023 by Irving Iyer MD at OR [facility] [employer]Metrics [id number] 05/18/2024 [id number] / / [id number] Duraclip 16mm Xlg Repostn - [id number] Implanted:Qty: 1 on 03/16/2023 by Irving Iyer MD at OR [facility] [employer] [id number] 05/18/2024 [id number] / / [id number] documented as of this encounter Visit Diagnoses [...] from Recorded weight), Subcutaneous, ONCE, On Jaclyn 07/07/24 at 1100, For 1 dose, Administer subcutaneously in thigh or abdomen-rotate site Given 07/07/2024 9:26 AM EDT 2.75 mg Abdomen Left Lower documented in this encounter Care Teams Church Organist Relationship Specialty Start Date End Date Jean Claude Yao DO [address] [place] [address] PCP - General Internal Medicine 05/09/24 documented as of this encounter
--- OUTSIDE RECORDS SUMMARY | 2024-07-27 10:39 | External Medical Summary | Summary of Care ---
Author Name Unknown Organization [facility] Address [address] [place] [address] Phone [phone] Care Team Providers Care Instructional Aide Name Role Phone Jean Claude Yao DO Primary Care Provider [phone] Reason for Visit * Reason Comments Chemotherapy C1D15 Darzalex Faspr o/ Velcade * Episode Based Medications (Routine) - Authorized Specialty Diagnoses / Procedures Referred By Felicita t Referred To Contact Diagnoses Multiple myeloma not having achieved remission (HCC) Encounter for antineoplastic chemotherapy Procedures OR DARATUMUMAB, HYALURONIDASE OR INJECTION, BORTEZOMIB, 0.1MG Abbey Aguiar MD [address] [facility] [place] [address] Anc Hem/Onc [facility] Laure [address] [place] [phone] Referral ID Status Reason Start Date Expiration Date V isits Requested Visits Authorized [id number] Authorized 06/03/2024 06/03/2025 999 999 Encounter Details Date Type Department Care Team (Latest Contact Info) Description 07/11/2024 9:00 AM EDT Hem/Onc Treatment Hematology/Oncolog y Treatment, [address] [phone] Laure, Chair 10 Hem Onc [address] [place] [address] Multiple myeloma not having achieved remission (HCC)*; Encounter for antineoplastic chemotherapy Allergies No known active allergiesdocumented as of this encounter (statuses as of 07/22/2024) Medications Medication Sig Dispensed Refills Start Date [...] as of this encounter (statuses as of 07/22/2024) Active Problems Problem Noted Date Diagnosed Date [...] as of this encounter (statuses as of 07/22/2024) Resolved Problems Problem Noted Date Diagnosed Date Resolved Date Prediabetes 10/26/2023 12/31/2023 Overview: Per Prediabetes protocol Hypertensive kidney disease with stage 3a chronic kidney disease 07/02/2023 03/29/2024 Lesion of pancreas 12/09/2022 documented as of this encounter (statuses as of 07/22/2024) Immunizations Name Administration Dates Next Due COVID-19 [...] Sign Reading Time Taken Comments Blood Pressure 170/90 07/11/2024 9:20 AM EDT Pulse 60 07/11/2024 9:20 AM EDT Temperature 36 C (96.8 F) 07/11/2024 9:20 AM EDT Respiratory Rate 118 07/11/2024 9:20 AM EDT Oxygen Saturation 97% 07/11/2024 9:20 AM EDT Inhaled Oxygen Concentration - - Weight 94.5 kg (208 lb 6.4 oz) 07/11/2024 9:20 A M EDT Height - - Body Mass Index 28.26 05/27/2024 9:16 AM EDT documented in this encounter Nursing Notes * Verenice Barney RN - 07/11/2024 10:34 AM EDT Peripheral IV established, IV Benadryl administered. PIV removed intact. Darzalex administered, patient tolerated well. Pt discharged in stable condition. * Verenice Barney RN - 07/11/2024 9:21 AM EDT Chair 9 Chemotherapy/Immunotherapy agents: DARZALEX Consent for chemotherapy drug treatment complete, dated, and signed? yes, date - 06/01/24 Treatment lab parameters met? Yes. PLT [address] Aguiar. Ok to proceed with treatment: continue to hold Revlimeb. Has treatment weight changed > than 10%? No Treatment preauthorized? Yes VITALS Filed Vitals: 07/11/24 0920 BP: 170/90 Pulse: 60 Resp: (!) 118 Temp: 36 C (96.8 F) SpO2: 97% Weight: 94.5 kg (208 lb 6.4 oz) Urine protein: N/A Patient education completed [...] NEURO: denies symptoms CV/RESP: denies symptoms GI/: Constipation: Discussed over the counter options, colace and Miralax. OTHER: denies any additional symptoms PAIN: 5-6 pain location : low back . documented in this encounter Plan of Treatment Upcoming Encounters Date Type Department Care Team (Latest Contact Info) Description 07/22/2024 7:50 AM EDT Laboratory Laboratory [facility] Laure [place] [address] [place] [phone] Laure, Lab Scenery [address] [place] [address] 07/22/2024 9:00 AM EDT Hem/Onc Treatment Hematology/Oncolog y Treatment, [place] 200 [facility] [place] [address] Laure, Chair 6 Hem Onc Scenery [address] [place] [address] [address] 07/25/2024 8:00 AM EDT Laboratory Laboratory [facility] Laure [place] [address] [place] [phone] Laure, Lab Scenery [address] [place] [address] [address] 07/25/2024 9:00 AM EDT Hem/Onc Treatment Hematology/Oncolog y Treatment, [place] [address] [facility] [place] [address] Laure, Chair 3 Hem Onc Scenery [address] [place] [address] [address] 07/28/2024 8:00 AM EDT Laboratory Laboratory [facility] Laure [place] [address] [place] [address] Laure, Lab Scenery [address] [place], [place] [address] 07/28/2024 9:00 AM EDT Hem/Onc Treatment Hematology/Oncolog y Treatment, [place] [address] [place], [place] [phone] Laure, Chair 6 Hem Onc Scenery [address] [place] [address] 08/01/2024 7:20 AM EDT Laboratory Laboratory [facility] [place] [address] [place], [place] [phone] Laure, Lab Scenery [address] [place], [place] [address] 08/01/2024 8:00 AM EDT Office Visit Hematology/Oncolog y Scenery [place] [address] [place], [place] [phone] Abbey Aguiar MD [address] [place], [place] [address] 08/01/2024 8:30 AM EDT Hem/Onc Treatment Hematology/Oncolog y Treatment, [place] [address], [place] [phone] Laure, Chair 5 Hem Onc Scenery [address] [place], [place] [address] 08/08/2024 9:00 AM EDT Pharmacy Pharmacy Hematology Oncology [facility] [address] [place] [address] [facility] Hem/Onc [address] [place] [address] 08/23/2024 10:00 AM EDT Office Visit Family Practice [address] [facility], [place] [address] [place] [address] Jean Claude Yao, 293 [place] [address] 09/08/2024 2:30 PM EDT Hospital Encounter ENDO [facility], Endoscopy Room [facility] [address] [place] [address] Irving Iyer MD [address] [place] [address] 09/08/2024 2:30 PM EDT - 09/08/2024 3:00 PM EDT Surgery ENDO [facility], Endoscopy Room [facility] [address] [place] [phone] Irving Iyer MD [address] [place] [address] COLONOSCOPY FLEXIBLE PROXIMAL DIAGNOSTIC 03/13/2025 11:00 AM EDT Office Visit Sleep Disorders Ctr [facility] [address] [place] [address] Ruma Orellana DO [address] [place] [address] Scheduled Procedures Name Priority Associated Diagnoses Date/Ti me COLONOSCOPY FLEXIBLE PROXIMAL DIAGNOSTIC Recall History of colonic polyps 09/08/2024 2:30 PM EDT Health Maintenance Due Date Last Done Comments Cologuard 1997 Fecal Occult Blood Test 1997 Sigmoidoscopy 1997 Adult Wellness Visit 2018 COVID-19 Vaccine (3 - Moderna risk series) 04/19/2021 03/22/2021, 02/21/2021 Zoster Vaccines (2 of 2) 02/03/2023 12/09/2022, 1211/2011 CKD PHOS USE SMARTSET 10355 06/15/2024 06/15/2023 Colonoscopy 06/29/2024 06/29/2023, 06/16, 03/16/2023, Additional history exists Colorectal Cancer Screening 06/29/2024 Influenza Vaccine (FLU shot) (#1) 2024 08/03/2023, 08/08/2022 HbA1c 09/29/2024 03/29/2024, 1211/2022, 06/15/2023 Depression Screening 09/30/2024 09/30/2023 GFR 01/16/2025 07/19/2024, 0804/2024, 07/07/2024, Additional history exists Diabetic Eye Exam 01/20/2025 01/21/2024, , 05/26/2022 Diabetic Foot Exam 04/12/2025 04/12/2024, 04/12/2024 Albumin/Creatinine Ratio 05/09/2025 024, 06/15/2023, 06/03/2022 CKD HGB USE SMARTSET 57376 07/19/202507/19, 07/19/2024, 07/11/2024, Additional history exists DTap/Tdap [...] this encounter Medical Devices Implanted Type Area Seo Analyst Device Identifier Shelf Expiration Date Model / Serial / Lot Sureclip 16mm 235cm - [id number] Implanted:Qty: 1 on 03/16/2023 by Irving Iyer MD at OR [facility] MICRO TECH ENDOSCOPY [id number] 05/19/2025 [id number] / / [id number] Duraclip 16mm Xlg Repostn - [id number] Implanted:Qty: 1 on 03/16/2023 by Irving Iyer MD at OR [facility] CONMED PHILLIP [id number] 05/18/2024 [id number] / / [id number] Duraclip 16mm Xlg Repostn - [id number] Implanted:Qty: 1 on 03/16/2023 by Irving Iyer MD at OR [facility] CONMED PHILLIP [id number] 05/18/2024 [id number] / / [id number] Duraclip 16mm Xlg Repostn - [id number] Implanted:Qty: 1 on 03/16/2023 by Irving Iyer MD at OR [facility] [employer]IP [id number] 05/18/2024 [id number] / / [id number] Duraclip 16mm Xlg Repostn - [id number] Implanted:Qty: 1 on 03/16/2023 by Irving Iyer MD at OR [facility] CONMED PH[employer]IP [id number] 05/18/2024 [id number] / / [id number] Duraclip 16mm Xlg Repostn - [id number] Implanted:Qty: 1 on 03/16/2023 by Irving Iyer MD at OR [facility] [employer] PHILLIP [id number] 05/18/2024 [id number] / / [id number] Duraclip 16mm Xlg Repostn - [id number] Implanted:Qty: 1 on 03/16/2023 by Irving Iyer MD at OR [facility] [employer] [id number] 05/19/2024 [id number] / / [id number] Duraclip 16mm Xlg Repostn - [id number] Implanted:Qty: 1 on 03/16/2023 by Irving Iyer MD at OR [facility] [employer] PHILLIP [id number] 05/19/2024 [id number] / / [id number] Duraclip 16mm Xlg Repostn - [id number] Implanted:Qty: 1 on 03/16/2023 by Irving Iyer MD at OR [facility] [employer] [id number] 05/19/2024 [id number] / / [id number] Duraclip 16mm Xlg Repostn - [id number] Implanted:Qty: 1 on 03/16/2023 by Irving Iyer MD at OR [facility] [employer] [id number] 05/18/2024 [id number] / / [id number] Duraclip 16mm Xlg Repostn - [id number] Implanted:Qty: 1 on 03/16/2023 by Irving Iyer MD at OR [facility] [employer] [id number] 05/18/2024 [id number] / / [id number] Duraclip 16mm Xlg Repostn - [id number] Implanted:Qty: 1 on 03/16/2023 by Irving Iyer MD at OR [facility] [employer] [id number] 05/18/2024 [id number] / / [id number] Duraclip 16mm Xlg Repostn - [id number] Implanted:Qty: 1 on 03/16/2023 by Irving Iyer MD at OR [facility] [employer] [id number] 05/18/2024 [id number] / / [id number] Duraclip 16mm Xlg Repostn - [id number] Implanted:Qty: 1 on 03/16/2023 by Irving Iyer MD at OR [facility] [employer] [id number] 05/18/2024 [id number] / / [id number] documented as of this encounter Visit Diagnoses [...] 650 mg 650 mg, Oral, ONCE, On 07/11/24 at 1030, For 1 dose, Maximum of 4 grams (4000 mg) per day. Given 07/11/2024 9:58 AM EDT 650 mg Hudzbdgdwog-iicgutevnbsbu-p ihj (Darzalex Faspro) 1800 mg-42785 units/ 15 ml subcut inj 15 mL, Subcutaneous, ONCE, On Thu07/11/24 at 1130, For 1 dose, Inject subcutanteously into abdomen over 3 to 5 minutes Given 07/11/2024 10:22 AM EDT 15 mL Abdomen Right Lower dexAMETHasone (Decadron) tab 20 mg 20 mg, Oral, ONCE, On Thu07/11/24 at 1030, For 1 dose Given 07/11/2024 9:58 AM EDT 20 mg diphenhydrAMINE (Benadryl) inj 50 mg 50 mg, IV Push, ONCE, On Thu07/11/24 at 1015, For 1 dose Given 07/11/2024 9:58 AM EDT 50 mg documented in this encounter Care Teams Instructional Aide Relationship Specialty Start Date End Date Jean Claude Yao DO [address] [place] [address] PCP - General Internal Medicine 05/09/24 documented as of this encounter
--- OUTSIDE RECORDS SUMMARY | 2024-07-27 10:39 | External Medical Summary | Summary of Care ---
Author Name Unknown Organization [facility] Address [address] [place] [address] Phone [phone] Care Team Providers Care Bioinformatics Analyst Name Role Phone Jean Claude Yao DO Primary Care Provider [phone] Reason for Visit * Reason Comments Chemotherapy C1D15 Darzalex Faspr o/ Velcade * Episode Based Medications (Routine) - Authorized Specialty Diagnoses / Procedures Referred By Felicita t Referred To Contact Diagnoses Multiple myeloma not having achieved remission (HCC) Encounter for antineoplastic chemotherapy Procedures [place] DARATUMUMAB, HYALURONIDASE [place] INJECTION, BORTEZOMIB, 0.1MG Abbey Aguiar MD [address] [facility] [place] [address] Anc Hem/Onc [facility] Laure [address] [place] [phone] Referral ID Status Reason Start Date Expiration Date V isits Requested Visits Authorized [id number] Authorized 06/03/2024 06/03/2025 999 999 Encounter Details Date Type Department Care Team (Latest Contact Info) Description 07/11/2024 9:00 AM EDT Hem/Onc Treatment Hematology/Oncolog y Treatment, [address] [address] Laure, Chair 10 Hem Onc [address] [place] [address] Multiple myeloma not having achieved remission (HCC)*; [...] Description 07/22/2024 7:50 AM EDT Laboratory Laboratory [facility] Laure [place] [address] [place] [phone] Laure, Lab Scenery [address] [place] [address] [address] 07/22/2024 9:00 AM EDT Hem/Onc Treatment Hematology/Oncolog y Treatment, [place] [address] [facility] [place] [address] Laure, Chair 6 Hem Onc Scenery [address] [place] [address] [address] 07/25/2024 8:00 AM EDT Laboratory Laboratory [facility] Laure [place] [address] [place] [address] [address] [address] Laure, Lab Scenery [address] [place] [address] [address] 07/25/2024 9:00 AM EDT Hem/Onc Treatment Hematology/Oncolog y Treatment, [place] [address] [facility] [place] [address] Laure, Chair 3 Hem Onc Scenery [address] [place] [address] [address] 07/28/2024 8:00 AM EDT Laboratory Laboratory [facility] Laure [place] [address] [address] Laure, Lab Scenery [address] [place], [place] [address] 07/28/2024 9:00 AM EDT Hem/Onc Treatment Hematology/Oncolog y Treatment, [place] [address] [place], [place] [phone] Laure, Chair 6 Hem Onc Scenery [address] [place] [address] 08/01/2024 7:20 AM EDT Laboratory Laboratory [facility] [place] [address] [place], [place] [phone] Laure, Lab Scenery [address] [place], [place] [address] 08/01/2024 8:00 AM EDT Office Visit Hematology/Oncolog y Scenery [place] [address] [place], [place] [phone] Abbey Aguiar MD [address] [place], [place] [address] 08/01/2024 8:30 AM EDT Hem/Onc Treatment Hematology/Oncolog y Treatment, [place] [address] [place], [place] [phone] Laure, Chair 5 Hem Onc Scenery [address] [place], [place] [address] 08/08/2024 9:00 AM EDT Pharmacy Pharmacy Hematology Oncology [facility] [address] [place] [address] [facility] Hem/Onc [address] [place] [address] 08/23/2024 10:00 AM EDT Office Visit Family Practice 65 [facility], [place] 293 [place] [address] Jean Claude Yao, 293 [place] [address] 09/08/2024 2:30 PM EDT Hospital Encounter ENDO OSSC, Endoscopy Room [facility] [address] [place] [address] Irving Iyer MD [address] [place] [address] 09/08/2024 2:30 PM EDT - 09/08/2024 3:00 PM EDT Surgery ENDO OSSC, Endoscopy Room [facility] [address] [place] [phone] Irving Iyer MD [address] [place] [address] COLONOSCOPY FLEXIBLE PROXIMAL DIAGNOSTIC 03/13/2025 11:00 AM EDT Office Visit Sleep Disorders Ctr [facility] [address] [place] [address] Ruma Orellana DO [address] [place] [address] Scheduled Procedures Name Priority Associated Diagnoses Date/Ti me COLONOSCOPY FLEXIBLE PROXIMAL DIAGNOSTIC Recall History of colonic polyps 09/08/2024 2:30 PM EDT Health Maintenance Due Date Last Done Comments Cologuard 1997 Fecal Occult Blood Test 1997 Sigmoidoscopy 1997 Adult Wellness Visit 2018 COVID-19 Vaccine (3 - Moderna risk series) 04/19/2021 03/22/2021, 02/21/2021 Zoster Vaccines (2 of 2) 02/03/2023 12/09/2022, 1211/2011 CKD PHOS USE SMARTSET 50732 06/15/2024 06/15/2023 Colonoscopy 06/29/2024 06/29/2023, 06/16, 03/16/2023, Additional history exists Colorectal Cancer Screening 06/29/2024 Influenza Vaccine (FLU shot) (#1) 2024 08/03/2023, 08/08/2022 HbA1c 09/29/2024 03/29/2024, 1211/2022, 06/15/2023 Depression Screening 09/30/2024 09/30/2023 GFR 01/16/2025 07/19/2024, 0804/2024, 07/07/2024, Additional history exists Diabetic Eye Exam 01/20/2025 01/21/2024, , 05/26/2022 Diabetic Foot Exam 04/12/2025 04/12/2024, 04/12/2024 Albumin/Creatinine Ratio 05/09/2025 024, 06/15/2023, 06/03/2022 CKD HGB USE SMARTSET 49123 07/19/202507/19, 07/19/2024, 07/11/2024, Additional history exists DTap/Tdap [...] this encounter Medical Devices Implanted Type Area Soda Dry House Operator Device Identifier Shelf Expiration Date Model / Serial / Lot Sureclip 16mm 235cm - [id number] Implanted:Qty: 1 on 03/16/2023 by Irving Iyer MD at OR [facility] MICRO TECH ENDOSCOPY [id number] 05/19/2025 [id number] / / [id number] Duraclip 16mm Xlg Repostn - [id number] Implanted:Qty: 1 on 03/16/2023 by Irving Iyer MD at OR [facility] CONMED PH[employer]IP [id number] 05/18/2024 [id number] / / [id number] Duraclip 16mm Xlg Repostn - [id number] Implanted:Qty: 1 on 03/16/2023 by Irving Iyer MD at OR [facility] [employer] [id number] 05/18/2024 [id number] / / [id number] Duraclip 16mm Xlg Repostn - [id number] Implanted:Qty: 1 on 03/16/2023 by Irving Iyer MD at OR [facility] [employer] [id number] 05/18/2024 [id number] / / [id number] Duraclip 16mm Xlg Repostn - [id number] Implanted:Qty: 1 on 03/16/2023 by Irving Iyer MD at OR [facility] [employer] [id number] 05/18/2024 [id number] / / [id number] Duraclip 16mm Xlg Repostn - [id number] Implanted:Qty: 1 on 03/16/2023 by Irving Iyer MD at OR [facility] [employer] PHILLIP [id number] 05/18/2024 [id number] / / [id number] Duraclip 16mm Xlg Repostn - [id number] Implanted:Qty: 1 on 03/16/2023 by Irving Iyer MD at OR [facility] [employer] [id number] 05/19/2024 [id number] / / [id number] Duraclip 16mm Xlg Repostn - [id number] Implanted:Qty: 1 on 03/16/2023 by Irving Iyer MD at OR [facility] [employer] [id number] 05/19/2024 [id number] / / [id number] Duraclip 16mm Xlg Repostn - [id number] Implanted:Qty: 1 on 03/16/2023 by Irving Iyer MD at OR [facility] [employer] [id number] 05/19/2024 [id number] / / [id number] Duraclip 16mm Xlg Repostn - [id number] Implanted:Qty: 1 on 03/16/2023 by Irving Iyer MD at OR [facility] [employer] [id number] 05/18/2024 [id number] / / [id number] Duraclip 16mm Xlg Repostn - [id number] Implanted:Qty: 1 on 03/16/2023 by Irving Iyer MD at OR [facility] [employer] [id number] 05/18/2024 [id number] / / [id number] Duraclip 16mm Xlg Repostn - [id number] Implanted:Qty: 1 on 03/16/2023 by Irving Iyer MD at OR [facility] [employer] [id number] 05/18/2024 [id number] / / [id number] Duraclip 16mm Xlg Repostn - [id number] Implanted:Qty: 1 on 03/16/2023 by Irving Iyer MD at OR [facility] [employer] [id number] 05/18/2024 [id number] / / [id number] Duraclip 16mm Xlg Repostn - [id number] Implanted:Qty: 1 on 03/16/2023 by Irving Iyer MD at OR [facility] [employer] [id number] 05/18/2024 [id number] / / [id number] documented as of this encounter Visit Diagnoses [...] Given 07/11/2024 9:58 AM EDT 650 mg Cyysbkvnekz-hnlbvrtmumkgx-j ihj (Darzalex Faspro) 1800 mg-84945 units/ 15 ml subcut inj 15 mL, [...] mg documented in this encounter Care Teams Bioinformatics Analyst Relationship Specialty Start Date End Date Jean Claude Yao DO [address] [place] [address] PCP - General Internal Medicine 05/09/24 documented as of this encounter
--- OUTSIDE RECORDS SUMMARY | 2024-07-27 10:39 | External Medical Summary | Summary of Care ---
Author Name Unknown Organization [facility] Address [address] [place] [address] Phone [phone] Care Team Providers Care Label Cutter Name Role Phone Jean Claude Yao DO Primary Care Provider [phone] Reason for Visit * Reason Comments Chemotherapy C1D15 Darzalex Faspr o/ Velcade * Episode Based Medications (Routine) - Authorized Specialty Diagnoses / Procedures Referred By Felicita t Referred To Contact Diagnoses Multiple myeloma not having achieved remission (HCC) Encounter for antineoplastic chemotherapy Procedures [place] DARATUMUMAB, HYALURONIDASE [place] INJECTION, BORTEZOMIB, 0.1MG Abbey Aguiar MD 200 [facility] [place] [place] [address] Anc Hem/Onc [facility] Laure [address] [place] [phone] Referral ID Status Reason Start Date Expiration Date V isits Requested Visits Authorized [id number] Authorized 06/03/2024 06/03/2025 999 999 Encounter Details Date Type Department Care Team (Latest Contact Info) Description 07/11/2024 9:00 AM EDT Hem/Onc Treatment Hematology/Oncolog y Treatment, [address] [address] Laure, Chair 10 Hem On[address] [place] [address] Multiple myeloma not having achieved remission (HCC)*; [...] Description 07/22/2024 7:50 AM EDT Laboratory Laboratory [facility] Laure [place] [address] [place] [phone] Laure, Lab Scenery [address] [place] [address] 07/22/2024 9:00 AM EDT Hem/Onc Treatment Hematology/Oncolog y Treatment, [place] 200 [facility] [place] [address] Laure, Chair 6 Hem Onc Scenery [address] [place] [address] [address] 07/25/2024 8:00 AM EDT Laboratory Laboratory [facility] Laure [place] [address] [place] [address] [address] [address] Laure, Lab Scenery [address] [place] [address] [address] [address] 07/25/2024 9:00 AM EDT Hem/Onc Treatment Hematology/Oncolog y Treatment, [place] 200 [facility] [place] [address] Laure, Chair 3 Hem Onc Scenery [address] [place] [address] [address] [address] 07/28/2024 8:00 AM EDT Laboratory Laboratory [facility] Laure [place] [address] [address] Laure, Lab Scenery [address] [place], [place] [address] 07/28/2024 9:00 AM EDT Hem/Onc Treatment Hematology/Oncolog y Treatment, [place] [address] [place], [place] [phone] Laure, Chair 6 Hem Onc Scenery [address] [place] [address] 08/01/2024 7:20 AM EDT Laboratory Laboratory [facility] [place] [address] [place], [place] [phone] Laure, Lab Scenery [address] [place], [place] [address] 08/01/2024 8:00 AM EDT Office Visit Hematology/Oncolog y Scenery [facility] [place] [address] [place], [place] [phone] Abbey Aguiar MD [address] [place], [place] [address] 08/01/2024 8:30 AM EDT Hem/Onc Treatment Hematology/Oncolog y Treatment, [place] [address] [place], [place] [phone] Laure, Chair 5 Hem Onc Scenery [address] [place], [place] [address] 08/08/2024 9:00 AM EDT Pharmacy Pharmacy Hematology Oncology [facility] [address] [place] [address] [facility] Hem/Onc [address] [place] [address] 08/23/2024 10:00 AM EDT Office Visit Family Practice 65 [facility], [place] 293 [place] [address] Jean Claude Yao, 293 [place] [address] 09/08/2024 2:30 PM EDT Hospital Encounter ENDO OSSC, Endoscopy Room [facility] [address] [place] [address] Irving Iyer MD [address] [place] [address] 09/08/2024 2:30 PM EDT - 09/08/2024 3:00 PM EDT Surgery ENDO OSSC, Endoscopy Room [facility] [address] [place] [phone] Irving Iyer MD [address] [place] [address] COLONOSCOPY FLEXIBLE PROXIMAL DIAGNOSTIC 03/13/2025 11:00 AM EDT Office Visit Sleep Disorders Ctr [facility] [address] [place] [address] Ruma Orellana DO [address] [place] [address] Scheduled Procedures Name Priority Associated Diagnoses Date/Ti me COLONOSCOPY FLEXIBLE PROXIMAL DIAGNOSTIC Recall History of colonic polyps 09/08/2024 2:30 PM EDT Health Maintenance Due Date Last Done Comments Cologuard 1997 Fecal Occult Blood Test 1997 Sigmoidoscopy 1997 Adult Wellness Visit 2018 COVID-19 Vaccine (3 - Moderna risk series) 04/19/2021 03/22/2021, 02/21/2021 Zoster Vaccines (2 of 2) 02/03/2023 12/09/2022, 1211/2011 CKD PHOS USE SMARTSET 60034 06/15/2024 06/15/2023 Colonoscopy 06/29/2024 06/29/2023, 06/16, 03/16/2023, Additional history exists Colorectal Cancer Screening 06/29/2024 Influenza Vaccine (FLU shot) (#1) 2024 08/03/2023, 08/08/2022 HbA1c 09/29/2024 03/29/2024, 1211/2022, 06/15/2023 Depression Screening 09/30/2024 09/30/2023 GFR 01/16/2025 07/19/2024, 0804/2024, 07/07/2024, Additional history exists Diabetic Eye Exam 01/20/2025 01/21/2024, , 05/26/2022 Diabetic Foot Exam 04/12/2025 04/12/2024, 04/12/2024 Albumin/Creatinine Ratio 05/09/2025 024, 06/15/2023, 06/03/2022 CKD HGB USE SMARTSET 19208 07/19/202507/19, 07/19/2024, 07/11/2024, Additional history exists DTap/Tdap [...] this encounter Medical Devices Implanted Type Area Boxcar Weigher Device Identifier Shelf Expiration Date Model / Serial / Lot Sureclip 16mm 235cm - [id number] Implanted:Qty: 1 on 03/16/2023 by Irving Iyer MD at OR [facility] MICRO TECH ENDOSCOPY [id number] 05/19/2025 [id number] / / [id number] Duraclip 16mm Xlg Repostn - [id number] Implanted:Qty: 1 on 03/16/2023 by Irving Iyer MD at OR [facility] CONMED PH[employer]IP [id number] 05/18/2024 [id number] / / [id number] Duraclip 16mm Xlg Repostn - [id number] Implanted:Qty: 1 on 03/16/2023 by Irving Iyer MD at OR [facility] [employer] [id number] 05/18/2024 [id number] / / [id number] Duraclip 16mm Xlg Repostn - [id number] Implanted:Qty: 1 on 03/16/2023 by Irving Iyer MD at OR [facility] [employer] [id number] 05/18/2024 [id number] / / [id number] Duraclip 16mm Xlg Repostn - [id number] Implanted:Qty: 1 on 03/16/2023 by Irving Iyer MD at OR [facility] [employer]IP [id number] 05/18/2024 [id number] / / [id number] Duraclip 16mm Xlg Repostn - [id number] Implanted:Qty: 1 on 03/16/2023 by Irving Iyer MD at OR [facility] [employer] PH[employer] [id number] 05/18/2024 [id number] / / [id number] Duraclip 16mm Xlg Repostn - [id number] Implanted:Qty: 1 on 03/16/2023 by Irving Iyer MD at OR [facility] [employer] [id number] 05/19/2024 [id number] / / [id number] Duraclip 16mm Xlg Repostn - [id number] Implanted:Qty: 1 on 03/16/2023 by Irving Iyer MD at OR [facility] [employer] [id number] 05/19/2024 [id number] / / [id number] Duraclip 16mm Xlg Repostn - [id number] Implanted:Qty: 1 on 03/16/2023 by Irving Iyer MD at OR [facility] [employer] [id number] 05/19/2024 [id number] / / [id number] Duraclip 16mm Xlg Repostn - [id number] Implanted:Qty: 1 on 03/16/2023 by Irving Iyer MD at OR [facility] [employer] [id number] 05/18/2024 [id number] / / [id number] Duraclip 16mm Xlg Repostn - [id number] Implanted:Qty: 1 on 03/16/2023 by Irving Iyer MD at OR [facility] [employer] [id number] 05/18/2024 [id number] / / [id number] Duraclip 16mm Xlg Repostn - [id number] Implanted:Qty: 1 on 03/16/2023 by Irving Iyer MD at OR [facility] [employer] [id number] 05/18/2024 [id number] / / [id number] Duraclip 16mm Xlg Repostn - [id number] Implanted:Qty: 1 on 03/16/2023 by Irving Iyer MD at OR [facility] [employer] [id number] 05/18/2024 [id number] / / [id number] Duraclip 16mm Xlg Repostn - [id number] Implanted:Qty: 1 on 03/16/2023 by Irving Iyer MD at OR [facility] [employer] [id number] 05/18/2024 [id number] / / [id number] documented as of this encounter Visit Diagnoses [...] Given 07/11/2024 9:58 AM EDT 650 mg Vizdvcjubdd-ppvsfunrtnxxh-h ihj (Darzalex Faspro) 1800 mg-55707 units/ 15 ml subcut inj 15 mL, [...] mg documented in this encounter Care Teams Label Cutter Relationship Specialty Start Date End Date Jean Claude Yao DO [address] [place] [address] PCP - General Internal Medicine 05/09/24 documented as of this encounter
--- OUTSIDE RECORDS SUMMARY | 2024-07-27 10:39 | External Medical Summary ---
Author Name Unknown Address Unknown Organization K[facility] [place] [address] Laboratory Report Ordering Provider Test Date Status CARLENE PEREZ 07/22/2024 08:06:49 Final Observation Date Value Abnormality Reference (Units ) Status BUN 07/22/2024 08:06:49 25 Above high normal 6-20 (mg/dL) Final Creatinine 07/22/2024 08:06:49 1.5 Above high normal 0.6-1.2 (mg/dL) Final Glomerular filtration rate/1.73 sq M.predicted [Volume Rate/Area] in Serum, Plasma or Blood by Creatinine-based formula (CKD-EPI) 07/22/2024 08:06:49 51 Below low normal >=60 (mL/min) Final eGFR is calculated based on the CKD-EPI 2020 equation. Sodium 07/22/2024 08:06:49 142 135-146 (m mol/L) Final Potassium 07/22/2024 08:06:49 3.8 3.5-5.1 (m mol/L) Final Cl 07/22/2024 08:06:49 107 98-107 (mm ol/L) Final CO2 07/22/2024 08:06:49 25 22-32 (mmo l/L) Final Anion gap 07/22/2024 08:06:49 10 7-15 (mmol /L) Final Glucose 07/22/2024 08:06:49 136 Above high normal 70 -120 (mg/dL) Final Albumin 07/22/2024 08:06:49 3.6 Below low normal 3.8 -5.0 (g/dL) Final AST (Aspartate aminotransferase) 07/22/2024 08:06:49 18 10-50 (U/L) Fin al Alk Phos 07/22/2024 08:06:49 74 35-130 (U/ L) Final Bilirubin, Total 07/22/2024 08:06:49 0.6 <=1 .2 (mg/dL) Final Calcium 07/22/2024 08:06:49 8.7 8.4-10.2 ( mg/dL) Final Protein 07/22/2024 08:06:49 6.8 6.0-8.3 (g /dL) Final ALT (Alanine aminotransferase) 07/22/2024 08:06:49 13 10-50 (U/L) Toby pruett Performing Location [facility] [address] [place] [address]
--- OUTSIDE RECORDS SUMMARY | 2024-07-27 10:39 | External Medical Summary | Summary of Care ---
Author Name Unknown Organization [facility] Address [address] [place] [address] Phone [phone] Care Team Providers Care Appointment Manager Name Role Phone Jean Claude Yao DO Primary Care Provider [phone] Reason for Visit * Reason Comments Chemotherapy Day 4 cycle 2 velcad e * Episode Based Medications (Routine) - Authorized Specialty Diagnoses / Procedures Referred By Contpreston t Referred To Contact Diagnoses Multiple myeloma not having achieved remission (HCC) Encounter for antineoplastic chemotherapy Procedures VT DARATUMUMAB, HYALURONIDASE VT INJECTION, BORTEZOMIB, 0.1MG Abbey Aguiar MD [address] [facility] [place] [id number] Anc Hem/Onc [facility] Laure [address] [place] [phone] Referral ID Status Reason Start Date Expiration Date V isits Requested Visits Authorized [id number] Authorized 06/03/2024 06/03/[phone] Encounter Details Date Type Department Care Team (Latest Contact Info) Description 07/22/2024 9:00 AM EDT Hem/Onc Treatment Hematology/Oncolog y Treatment, [address] [phone] Laure, Chair 6 Hem Onc [address] [place] [id number] Multiple myeloma not having achieved remission [...] No 09/30/2023 Does the household have a [facility] source of income? (Household - for ages [...] Sign Reading Time Taken Comments Blood Pressure 126/57 07/22/2024 9:12 AM EDT Pulse 105 07/22/2024 9:12 AM EDT Temperature 36.1 C (97 F) 07/22/2024 9:12 AM EDT Respiratory Rate 18 07/22/2024 9:12 AM EDT Oxygen Saturation 96% 07/22/2024 9:12 AM EDT Inhaled Oxygen Concentration - - Weight 93.5 kg (206 lb 3.2 oz) 07/22/2024 9:12 A M EDT Height - - Body Mass Index 27.96 05/27/2024 9:16 AM EDT documented in this encounter Nursing Notes * Lizette Martínez RN - 07/22/2024 10:51 AM EDT Velcade injection given per order. Patient tolerated well. No complaints voiced. Patient dischargedhome in stable condition. * Lizette Martínez RN - 07/22/2024 9:24 AM EDT Chair 9. Chemotherapy/Immunotherapy agents: VELCADE Consent for chemotherapy drug treatment complete, dated, and signed? yes, date - 06/01/24 Treatment lab parameters met? No, Labs reviewed with sylvie Jones to proceed with treatment. Has treatment weight changed > than 10%? No Treatment preauthorized? Yes VITALS Filed Vitals: 07/22/24911 BP: 126/57 Pulse: 105 Resp: 18 Temp: 36.1 C (97 F) TempSrc: Tympanic SpO2: 96% Weight: 93.5 kg (206 lb 3.2 oz) Urine protein: N/A Patient [...] OTHER: denies any additional symptoms PAIN: 0 documented in this encounter Plan of Treatment Upcoming Encounters Date Type Department Care Team (Latest Contact Info) Description 07/25/2024 8:00 AM EDT Laboratory [facility] [place] [address] [place] [phone] Laure, Lab [address]en[address] [place], [place] [address] 07/25/2024 9:00 AM EDT Hem/Onc Treatment Hematology/Oncolog y Treatment, [place] 200 [facility], [place] [address] Laure, Chair 3 Hem Onc [address] [place] [address] 07/28/2024 8:00 AM EDT Laboratory [facility] [place] [address] [place] [address] Laure, Lab [address]enery [address] Kelli [address] [facility] S[facility] TO [facility] [place], [place] [address] 07/28/2024 9:00 AM EDT Hem/Onc Treatment Hematology/Oncolog y Treatment, [place] [facility] [place], [place] [address] Laure, Chair 6 Hem Onc Scen[address] [place], [place] [address] 08/01/2024 7:20 AM EDT Laboratory [facility] [place] [address] [place] [address] Laure, Lab [place] [address] [place] [facility] [place], [place] [address] 08/01/2024 8:00 AM EDT Office Visit Hematology/Oncolog y [place] Laure [place] [address] [place] [address] Abbey Aguiar MD [address] [place] [address] 08/01/2024 8:30 AM EDT Hem/Onc Treatment Hematology/Oncolog y Treatment, [place] [address] [place] [address] Park, Chair 5 Hem Onc Scenery [address] [place], [place] [address] 08/08/2024 9:00 AM EDT Pharmacy Pharmacy Hematology Oncology [facility] [address] [place] [address] [facility] [place] [facility] Hem/Onc [address] [place] [address] 08/23/2024 10:00 AM EDT Office Visit Family Practice [address] [place] [address] 293 [place] [address] Jean Claude Yao DO [address] [place] [address] 09/08/2024 2:30 PM EDT Hospital Encounter ENDO [facility], Endoscopy Room [facility] 132 [facility] [place] [phone] Irving Iyer MD [facility] [place] [address] 09/08/2024 2:30 PM EDT - 09/08/2024 3:00 PM EDT Surgery ENDO [facility], Endoscopy Room [facility] [address] [place] [phone] Irving Iyer MD [facility] [place] [address] COLONOSCOPY FLEXIBLE PROXIMAL DIAGNOSTIC 03/13/2025 11:00 AM EDT Office Visit Sleep Disorders Ctr Ruel [facility] 132 [facility] [place] [address] OrellanaRuma monten[place], 132 [facility] [place] [address] Scheduled Procedures Name Priority Associated Diagnoses Date/Ti me COLONOSCOPY FLEXIBLE PROXIMAL DIAGNOSTIC Recall History of colonic polyps 09/08/2024 2:30 PM EDT Health Maintenance Due Date Last Done Comments Cologuard 1997 Fecal Occult Blood Test 1997 Sigmoidoscopy 1997 Adult Wellness Visit 2018 COVID-19 Vaccine (3 - Moderna risk series) 04/19/2021 03/22/2021, 02/21/2021 Zoster Vaccines (2 of 2) 02/03/2023 12/09/2022, 1211/2011 CKD PHOS USE SMARTSET 61545 06/15/2024 06/15/2023 Colonoscopy 06/29/2024 06/29/2023, 06/16, 03/16/2023, Additional history exists Colorectal Cancer Screening 06/29/2024 Influenza Vaccine (FLU shot) (#1) 2024 08/03/2023, 08/08/2022 HbA1c 09/29/2024 03/29/2024, 1211/2022, 06/15/2023 Depression Screening 09/30/2024 09/30/2023 GFR 01/19/2025 07/22/2024, 0901/2024, 07/11/2024, Additional history exists Diabetic Eye Exam 01/20/2025 01/21/2024, , 05/26/2022 Diabetic Foot Exam 04/12/2025 04/12/2024, 04/12/2024 Albumin/Creatinine Ratio 05/09/202505/09/2 024, 06/15/2023, 06/03/2022 CKD HGB USE SMARTSET 92674 07/22/202507/22, 07/22/2024, 07/19/2024, Additional history exists DTap/Tdap [...] this encounter Medical Devices Implanted Type Area Automotive Lot Attendant Device Identifier Shelf Expiration Date Model / Serial / Lot Sureclip 16mm 235cm - [id number] Implanted:Qty: 1 on 03/16/2023 by Irving Iyer MD at OR [facility] MICRO TECH ENDOSCOPY [id number] 05/19/2025 [id number] / / [id number] Duraclip 16mm Xlg Repostn - [id number] Implanted:Qty: 1 on 03/16/2023 by Irving Iyer MD at OR [facility] [employer] [id number] 05/18/2024 [id number] / / [id number] Duraclip 16mm Xlg Repostn - [id number] Implanted:Qty: 1 on 03/16/2023 by Irving Iyer MD at OR [facility] [employer] PHILLIP [id number] 05/18/2024 [id number] / / [id number] Duraclip 16mm Xlg Repostn - [id number] Implanted:Qty: 1 on 03/16/2023 by Irving Iyer MD at OR [facility] [employer] [id number] 05/18/2024 [id number] / / [id number] Duraclip 16mm Xlg Repostn - [id number] Implanted:Qty: 1 on 03/16/2023 by [place] Iyer MD at OR [facility] [employer] [id number] 05/18/2024 [id number] / / [id number] Duraclip 16mm Xlg Repostn - [id number] Implanted:Qty: 1 on 03/16/2023 by [place] Iyer MD at OR [facility] [employer] [id number] 05/18/2024 [id number] / / [id number] Duraclip 16mm Xlg Repostn - [id number] Implanted:Qty: 1 on 03/16/2023 by Irving Iyer MD at OR [facility] [employer] [id number] 05/19/2024 [id number] / / [id number] Duraclip 16mm Xlg Repostn - [id number] Implanted:Qty: 1 on 03/16/2023 by Irving Iyer MD at OR [facility] [employer] [id number] 05/19/2024 [id number] / / [id number] Duraclip 16mm Xlg Repostn - [id number] Implanted:Qty: 1 on 03/16/2023 by Irving Iyer MD at OR [facility] [employer] [id number] 05/19/2024 [id number] / / [id number] Duraclip 16mm Xlg Repostn - [id number] Implanted:Qty: 1 on 03/16/2023 by Irving Iyer MD at OR [facility] [employer] [id number] 05/18/2024 [id number] / / [id number] Duraclip 16mm Xlg Repostn - [id number] Implanted:Qty: 1 on 03/16/2023 by Irving Iyer MD at OR [facility] [employer] [id number] 05/18/2024 [id number] / / [id number] Duraclip 16mm Xlg Repostn - [id number] Implanted:Qty: 1 on 03/16/2023 by Irving Iyer MD at OR [facility] [employer] [id number] 05/18/2024 [id number] / / [id number] Duraclip 16mm Xlg Repostn - [id number] Implanted:Qty: 1 on 03/16/2023 by Irving Iyer MD at OR [facility] [employer] [id number] 05/18/2024 [id number] / / [id number] Duraclip 16mm Xlg Repostn - [id number] Implanted:Qty: 1 on 03/16/2023 by Irving Iyer MD at OR [facility] [employer] [id number] 05/18/2024 [id number] / / [id number] documented as of this encounter Visit Diagnoses [...] ONCE PRN Other, Hypersensitivity Reaction, Starting on Thu07/22/24 at 0922, Until 07/23/24 at 0921, For 24 hours EPINEPHrine 1 MG/ML inj 0.3 mg 0.3 mg, Intramuscular, ONCE PRN Other, Hypersensitivity Reaction or Anaphylaxis, Starting on Thu07/22/24 at 0922, Until 07/23/24 at 0921, For 24 hours Hydrocortisone Sod Suc (PF) (Solu-Cortef) inj 100 mg 100 mg, IV Push, ONCE PRN Other, Hypersensitivity Reaction, Starting on Thu07/22/24 at 0922, Until 07/23/24 at 0921, For 24 hours oxygen GAS Inhalation, OXYGEN, First dose on Thu07/22/24 at 1000, Until Discontinued, Device/Managed by: Low [...] BSA from Recorded weight), Subcutaneous, ONCE, On Thu07/22/24 at 1100, For 1 dose, Administer subcutaneously in thigh or abdomen-rotate site Given 07/22/2024 10:01 AM EDT 2.75 mg Abdomen Right Lower documented in this encounter Care Teams Appointment Manager Relationship Specialty Start Date End Date Jean Claude Yao DO [address] [place] [address] PCP - General Internal Medicine 05/09/24 documented as of this encounter
--- OUTSIDE RECORDS SUMMARY | 2024-07-27 10:39 | External Medical Summary | Summary of Care ---
Author Name Unknown Organization [facility] Address [address] [place] [address] Phone [phone] Care Team Providers Care Button Sewer Name Role Phone Jean Claude Yao DO Primary Care Provider Reason for Visit * Reason Comments Outpatient Testing Encounter Details Date Type Department Care Team (Late st Contact Info) Description 07/22/2024 7:50 AM EDT Laboratory Laboratory [facility] [employer] [address] [place] [address] [place], Lab [facility] 200 [facility] [place] [address] Multiple myeloma not having achieved remission (HCC) [...] AM EDT Hem/Onc Treatment Hematology/Oncolog y Treatment, [employer] 200 [facility] Rosalie [employer] [place] [phone] Laure, Chair 6 Hem Onc [facility] [address] [place] [address] Arrived 07/25/2024 8:00 AM EDT Laboratory Laboratory [facility] Laure [employer] [address] [employer] [place] [phone] Laure, Lab [address] [place] [address] 07/25/2024 9:00 AM EDT Hem/Onc Treatment Hematology/Oncolog y Treatment, [employer] 200 [facility] Rosalie [employer] [place] [phone] Laure, Chair 3 Hem Onc [place] 200 Kelli [place] [address] 07/28/2024 8:00 AM EDT Laboratory Laboratory [place] Laure [employer] [address] [place] [phone] Laure Lab Scenery [address] [place], [place] [address] 07/28/2024 9:00 AM EDT Hem/Onc Treatment Hematology/Oncolog y Treatment, [employer] [address] [employer], [place] [phone] Laure, Chair 6 Hem Onc [address] [employer], [place] [address] 08/01/2024 7:20 AM EDT Laboratory Laboratory [facility] [employer] [address] [place] [phone] Laure, Lab [address]enery [address] [place], [place] [address] 08/01/2024 8:00 AM EDT Office Visit Hematology/Oncolog y [facility] [place]ure [employer] [address] [employer], [place] [phone] Abbey Aguiar MD [address] [employer], [place] [address] 08/01/2024 8:30 AM EDT Hem/Onc Treatment Hematology/Oncolog y Treatment, [employer] [address] [employer], [place] [phone] Laure, Chair 5 Hem Onc [address] [employer], [place] [address] 08/08/2024 9:00 AM EDT Pharmacy Pharmacy Hematology Oncology [facility] [address] [place] [address] [facility] Hem/Onc [address] [place] [address] 08/23/2024 10:00 AM EDT Office Visit Family Practice [address], [employer] 293 [facility], [place] [address] Jean Claude Yao, 293 [facility] [place] [address] 09/08/2024 2:30 PM EDT Hospital Encounter ENDO OSSC, Endoscopy Room [facility] [address] [place] [phone] Irving Iyer MD [address] [place] [address] 09/08/2024 2:30 PM EDT - 09/08/2024 3:00 PM EDT Surgery ENDO [facility], Endoscopy Room [facility] [address] [place] [phone] Irving Iyer MD [address] [place] [address] COLONOSCOPY FLEXIBLE PROXIMAL DIAGNOSTIC 03/13/2025 11:00 AM EDT Office Visit Sleep Disorders Ctr Ruel Watts [employer] [address] [place] [phone] Ruma Orellana DO [address] [place] [address] Pending Results Name Type Priority Associated Diagnoses Date /Time CBC WITH WBC DIFFERENTIAL Lab STAT Multiple myeloma not having achieved remission (HCC) 07/22/2024 8:06 AM EDT COMPREHENSIVE METABOLIC PANEL Lab STAT Multiple myeloma not having achieved remission (HCC) 07/22/2024 8:06 AM EDT CBC Lab STAT Multiple myeloma not having achieved remission (HCC) 07/22/2024 8:06 AM EDT DIFFERENTIAL, AUTOMATED Lab STAT Multiple myeloma not having achieved remission (HCC) 07/22/2024 8:06 AM EDT Scheduled Procedures Name Priority Associated [...] 02/03/2023 12/09/2022, 11/2011 CKD PHOS USE SMARTSET 81907 06/15/2024 06/15/2023 Colonoscopy 06/29/2024 06/29/2023, 06/16, 03/16/2023, Additional history exists Colorectal Cancer Screening 06/29/2024 Influenza Vaccine (FLU shot) (#1) 2024 08/03/2023, 08/08/2022 HbA1c 09/29/2024 03/29/2024, 11/2022, 06/15/2023 Depression Screening 09/30/2024 09/30/2023 GFR 01/16/2025 07/19/2024, 06/17, 07/07/2024, Additional history exists Diabetic Eye Exam 01/20/2025 01/21/2024, , 05/26/2022 Diabetic Foot Exam 04/12/2025 04/12/2024, 04/12/2024 Albumin/Creatinine Ratio 05/09/2025 024, 06/15/2023, 06/03/2022 CKD HGB USE SMARTSET 01312 07/19/202507/19, 07/19/2024, 07/11/2024, Additional history exists DTap/Tdap [...] this encounter Medical Devices Implanted Type Area Regulatory Affairs Associate Device Identifier Shelf Expiration Date Model / Serial / Lot Sureclip 16mm 235cm - [id number] Implanted:Qty: 1 on 03/16/2023 by [place] Iyer MD at OR [facility] MICRO TECH ENDOSCOPY [id number] 05/19/2025 [id number] / / [id number] Duraclip 16mm Xlg Repostn - [id number] Implanted:Qty: 1 on 03/16/2023 by Irving Iyer MD at OR [facility] [employer] PHILLIP [id number] 05/18/2024 [id number] / / [id number] Duraclip 16mm Xlg Repostn - [id number] Implanted:Qty: 1 on 03/16/2023 by Irving Iyer MD at OR [facility] [employer] [id number] 05/18/2024 [id number] / / [id number] Duraclip 16mm Xlg Repostn - [id number] Implanted:Qty: 1 on 03/16/2023 by Irving Iyer MD at OR [facility] [employer] [id number] 05/18/2024 [id number] / / [id number] Duraclip 16mm Xlg Repostn - [id number] Implanted:Qty: 1 on 03/16/2023 by Irving Iyer MD at OR [facility] [employer] [id number] 05/18/2024 [id number] / / [id number] Duraclip 16mm Xlg Repostn - [id number] Implanted:Qty: 1 on 03/16/2023 by Irving Iyer MD at OR [facility] [employer] [id number] 05/18/2024 [id number] / / [id number] Duraclip 16mm Xlg Repostn - [id number] Implanted:Qty: 1 on 03/16/2023 by Irving Iyer MD at OR [facility] [employer] [place] [id number] 05/19/2024 [id number] / / [id number] Duraclip 16mm Xlg Repostn - [id number] Implanted:Qty: 1 on 03/16/2023 by Irivng Iyer MD at OR [facility] [employer] [id number] 05/19/2024 [id number] / / [id number] Duraclip 16mm Xlg Repostn - [id number] Implanted:Qty: 1 on 03/16/2023 by Irving Iyer MD at OR [facility] [employer] [id number] 05/19/2024 [id number] / / [id number] Duraclip 16mm Xlg Repostn - [id number] Implanted:Qty: 1 on 03/16/2023 by Irving Iyer MD at OR [facility] [employer] [id number] 05/18/2024 [id number] / / [id number] Duraclip 16mm Xlg Repostn - [id number] Implanted:Qty: 1 on 03/16/2023 by Irving Iyer MD at OR [facility] [employer] [id number] 05/18/2024 [id number] / / [id number] Duraclip 16mm Xlg Repostn - [id number] Implanted:Qty: 1 on 03/16/2023 by Irving Iyer MD at OR [facility] [employer] [id number] 05/18/2024 [id number] / / [id number] Duraclip 16mm Xlg Repostn - [id number] Implanted:Qty: 1 on 03/16/2023 by Irving Iyer MD at OR [facility] [employer] [id number] 05/18/2024 [id number] / / [id number] Duraclip 16mm Xlg Repostn - [id number] Implanted:Qty: 1 on 03/16/2023 by Irving Iyer MD at OR [facility] [employer] [id number] 05/18/2024 [id number] / / [id number] documented as of this encounter Visit Diagnoses Diagnosis Multiple myeloma not having achieved remission (HCC) Multiple myeloma, without mention of having achieved remission History of colonic polyps Personal history of colonic polyps documented in this encounter Care Teams Button Sewer Relationship Specialty Start Date End Date Jean Claude Yao DO [address] [place] [address] PCP - General Internal Medicine 05/09/24 documented as of this encounter
--- OUTSIDE RECORDS SUMMARY | 2024-07-27 10:39 | External Medical Summary ---
Author Name Unknown Address Unknown Organization [facility] [place] [address] Laboratory Report Ordering Provider Test Date Status CARLENE PEREZ 07/22/2024 08:06:49 Final Observation Date Value Abnormality Reference (Units ) Status Nucleated erythrocytes/100 leukocytes [Ratio] in Blood by Automated count 07/22/2024 08:06:49 Final Performing Location [facility] [place] [address]
--- OUTSIDE RECORDS SUMMARY | 2024-07-27 10:39 | External Medical Summary ---
Author Name Unknown Address Unknown Organization [facility] [place] [address] Laboratory Report Ordering Provider Test Date Status CARLENE PEREZ 07/22/2024 08:06:49 Final Observation Date Value Abnormality Reference (Units ) Status SYNC LEUKOCYTES IN BLOOD BY AUTOMATED COUNT 07/22/2024 08:06:49 5.23 4.00-10.80 (K/uL) Final Segs 07/22/2024 08:06:49 64.8 40.0-75.0 (%) Final Lymphs % 07/22/2024 08:06:49 22.9 18.0-42.0 (%) Final Monos 07/22/2024 08:06:49 11.7 Above high normal 1.0-11.0 (%) Final Eosinophils 07/22/2024 08:06:49 0.4 0.0-6.0 (%) Final Basos 07/22/2024 08:06:49 0.2 0.0-2.0 (%) Final Absolute Segs 07/22/2024 08:06:49 3.39 1.80-7.70 (K/uL) Final Lymphs, absolute 07/22/2024 08:06:49 1.20 1.00-4.80 (K/ul) Final Monos, Abs 07/22/2024 08:06:49 0.61 0.00-1.10 (K/uL) Final Eos, Abs 07/22/2024 08:06:49 0.02 0.00-0.70 (K/uL) Final Basos, Abs 07/22/2024 08:06:49 0.01 0.00-0.20 (K/uL) Final Performing Location [facility] [place] [address]
--- OUTSIDE RECORDS SUMMARY | 2024-07-27 10:39 | External Medical Summary ---
Author Name Unknown Address Unknown Organization K09[facility] [place] [address] Laboratory Report Ordering Provider Test Date Status CARLENE PEREZ 07/22/2024 08:06:49 Final Observation Date Value Abnormality Reference (Units ) Status WBC, Total 07/22/2024 08:06:49 5.23 4.00-10.8 0 (K/uL) Final RBC 07/22/2024 08:06:49 2.89 4.50-5.25 (M/uL) Final Hemoglobin 07/22/2024 08:06:49 9.9 Below low normal 14 .0-16.8 (g/dL) Final HCT 07/22/2024 08:06:49 31.2 Below low normal 40. 0-48.4 (%) Final MCV 07/22/2024 08:06:49 108.0 82.0-99.5 (fL) Final MCH 07/22/2024 08:06:49 34.3 27.0-34.0 (pg) Final MCHC 07/22/2024 08:06:49 31.7 32.0-36.0 (g/dL) Final RDW 07/22/2024 08:06:49 15.1 11.5-15.5 (%) Final Platelets 07/22/2024 08:06:49 98 Below low normal 140 -400 (K/uL) Final Consistent with previous res ults.
null MPV 07/22/2024 08:06:49 10.9 6.6-11.1 ( fL) Final Performing Location [facility] [place] [address]
--- OUTSIDE RECORDS SUMMARY | 2024-07-27 10:39 | External Medical Summary | Summary of Care ---
Author Name Unknown Organization [facility] Address [address] [place] [address] Phone [phone] Care Team Providers Care Job Recruiter Name Role Phone Jean Claude Yao DO Primary Care Provider [phone] Reason for Visit * Reason Comments Chemotherapy C1D15 Darzalex Faspr o/ Velcade * Episode Based Medications (Routine) - Authorized Specialty Diagnoses / Procedures Referred By Felicita t Referred To Contact Diagnoses Multiple myeloma not having achieved remission (HCC) Encounter for antineoplastic chemotherapy Procedures [place] DARATUMUMAB, HYALURONIDASE ND INJECTION, BORTEZOMIB, 0.1MG Abbey Aguiar MD [address] [facility] [place] [address] Anc Hem/Onc [facility] Laure [address] [place] [phone] Referral ID Status Reason Start Date Expiration Date V isits Requested Visits Authorized [id number] Authorized 06/03/2024 06/03/2025 999 999 Encounter Details Date Type Department Care Team (Latest Contact Info) Description 07/11/2024 9:00 AM EDT Hem/Onc Treatment Hematology/Oncolog y Treatment, [address] [address] Laure, Chair 10 Hem Onc [address] [place] [address] Multiple myeloma not having achieved remission (HCC)*; [...] Description 07/22/2024 7:50 AM EDT Laboratory Laboratory [facility] Laure [place] [address] [place] [phone] Laure, Lab Scenery [address] [place] [address] 07/22/2024 9:00 AM EDT Hem/Onc Treatment Hematology/Oncolog y Treatment, [place] [address] [facility] [place] [address] Laure, Chair 6 Hem Onc Scenery [address] [place] [address] [address] 07/25/2024 8:00 AM EDT Laboratory Laboratory [facility] Laure [place] [address] [address] Laure, Lab Scenery [address] [place] [address] [address] 07/25/2024 9:00 AM EDT Hem/Onc Treatment Hematology/Oncolog y Treatment, [place] 200 [facility] [place] [address] Laure, Chair 3 Hem Onc Scenery [address] [place] [address] [address] 07/28/2024 8:00 AM EDT Laboratory Laboratory [facility] Laure [place] [address] [address] Laure, Lab Scenery [address] [place], [place] [address] 07/28/2024 9:00 AM EDT Hem/Onc Treatment Hematology/Oncolog y Treatment, [place] [address] [place], [place] [phone] Laure, Chair 6 Hem Onc Scenery [address] [place] [address] 08/01/2024 7:20 AM EDT Laboratory Laboratory [facility] [place] [address] [place], [place] [phone] Laure, Lab Scenery [address] [place], [place] [address] 08/01/2024 8:00 AM EDT Office Visit Hematology/Oncolog y Scenery [place] [address] [place], [place] [phone] Abbey Aguiar MD [address] [place], [place] [address] 08/01/2024 8:30 AM EDT Hem/Onc Treatment Hematology/Oncolog y Treatment, [place] [address] [place] [place], [place] [phone] Laure, Chair 5 Hem Onc Scenery [address] [place], [place] [address] 08/08/2024 9:00 AM EDT Pharmacy Pharmacy Hematology Oncology [facility] [address] [place] [address] [facility] Hem/Onc [address] [place] [address] 08/23/2024 10:00 AM EDT Office Visit Family Practice [facility], [place] [address] [place] [address] Jean Claude Yao, 293 [place] [address] 09/08/2024 2:30 PM EDT Hospital Encounter ENDO OSS[facility], Endoscopy Room [facility] [address] [place] [address] Irving Iyer MD [address] [place] [address] 09/08/2024 2:30 PM EDT - 09/08/2024 3:00 PM EDT Surgery ENDO OSS[facility], Endoscopy Room [facility] [address] [place] [phone] Irving Iyer MD [address] [place] [address] COLONOSCOPY FLEXIBLE PROXIMAL DIAGNOSTIC 03/13/2025 11:00 AM EDT Office Visit Sleep Disorders Ctr [facility] [address] [place] [address] Ruma Orellana DO [address] [place] [address] Scheduled Procedures Name Priority Associated Diagnoses Date/Ti me COLONOSCOPY FLEXIBLE PROXIMAL DIAGNOSTIC Recall History of colonic polyps 09/08/2024 2:30 PM EDT Health Maintenance Due Date Last Done Comments Cologuard 1997 Fecal Occult Blood Test 1997 Sigmoidoscopy 1997 Adult Wellness Visit 2018 COVID-19 Vaccine (3 - Moderna risk series) 04/19/2021 03/22/2021, 02/21/2021 Zoster Vaccines (2 of 2) 02/03/2023 12/09/2022, 1211/2011 CKD PHOS USE SMARTSET 22618 06/15/2024 06/15/2023 Colonoscopy 06/29/2024 06/29/2023, 06/16, 03/16/2023, Additional history exists Colorectal Cancer Screening 06/29/2024 Influenza Vaccine (FLU shot) (#1) 2024 08/03/2023, 08/08/2022 HbA1c 09/29/2024 03/29/2024, 1211/2022, 06/15/2023 Depression Screening 09/30/2024 09/30/2023 GFR 01/16/2025 07/19/2024, 0804/2024, 07/07/2024, Additional history exists Diabetic Eye Exam 01/20/2025 01/21/2024, , 05/26/2022 Diabetic Foot Exam 04/12/2025 04/12/2024, 04/12/2024 Albumin/Creatinine Ratio 05/09/2025 024, 06/15/2023, 06/03/2022 CKD HGB USE SMARTSET 80250 07/19/202507/19, 07/19/2024, 07/11/2024, Additional history exists DTap/Tdap [...] this encounter Medical Devices Implanted Type Area Desktop Operator Device Identifier Shelf Expiration Date Model / Serial / Lot Sureclip 16mm 235cm - [id number] Implanted:Qty: 1 on 03/16/2023 by Irving Iyer MD at OR [facility] MICRO TECH ENDOSCOPY [id number] 05/19/2025 [id number] / / [id number] Duraclip 16mm Xlg Repostn - [id number] Implanted:Qty: 1 on 03/16/2023 by Irving Iyer MD at OR [facility] [employer] [id number] 05/18/2024 [id number] / / [id number] Duraclip 16mm Xlg Repostn - [id number] Implanted:Qty: 1 on 03/16/2023 by Irving Iyer MD at OR [facility] [employer] [id number] 05/18/2024 [id number] / / [id number] Duraclip 16mm Xlg Repostn - [id number] Implanted:Qty: 1 on 03/16/2023 by Irving Iyer MD at OR [facility] [employer] [id number] 05/18/2024 [id number] / / [id number] Duraclip 16mm Xlg Repostn - [id number] Implanted:Qty: 1 on 03/16/2023 by Irving Iyer MD at OR [facility] [employer] [id number] 05/18/2024 [id number] / / [id number] Duraclip 16mm Xlg Repostn - [id number] Implanted:Qty: 1 on 03/16/2023 by Irving Iyer MD at OR [facility] [employer] [id number] 05/18/2024 [id number] / / [id number] Duraclip 16mm Xlg Repostn - [id number] Implanted:Qty: 1 on 03/16/2023 by Irving Iyer MD at OR [facility] [employer] [id number] 05/19/2024 [id number] / / [id number] Duraclip 16mm Xlg Repostn - [id number] Implanted:Qty: 1 on 03/16/2023 by Irving Iyer MD at OR [facility] [employer] [id number] 05/19/2024 [id number] / / [id number] Duraclip 16mm Xlg Repostn - [id number] Implanted:Qty: 1 on 03/16/2023 by Irving Iyer MD at OR [facility] [employer] [id number] 05/19/2024 [id number] / / [id number] Duraclip 16mm Xlg Repostn - [id number] Implanted:Qty: 1 on 03/16/2023 by Irving Iyer MD at OR [facility] [employer] [id number] 05/18/2024 [id number] / / [id number] Duraclip 16mm Xlg Repostn - [id number] Implanted:Qty: 1 on 03/16/2023 by Irving Iyer MD at OR [facility] [employer] [id number] 05/18/2024 [id number] / / [id number] Duraclip 16mm Xlg Repostn - [id number] Implanted:Qty: 1 on 03/16/2023 by Irving Iyer MD at OR [facility] [employer] [id number] 05/18/2024 [id number] / / [id number] Duraclip 16mm Xlg Repostn - [id number] Implanted:Qty: 1 on 03/16/2023 by Irving Iyer MD at OR [facility] [employer] [id number] 05/18/2024 [id number] / / [id number] Duraclip 16mm Xlg Repostn - [id number] Implanted:Qty: 1 on 03/16/2023 by Irving Iyer MD at OR [facility] [employer] [id number] 05/18/2024 [id number] / / [id number] documented as of this encounter Visit Diagnoses [...] Given 07/11/2024 9:58 AM EDT 650 mg Vpxoupvbetm-ryhjzlatfcgcc-f ihj (Darzalex Faspro) 1800 mg-05404 units/ 15 ml subcut inj 15 mL, [...] mg documented in this encounter Care Teams Job Recruiter Relationship Specialty Start Date End Date Jean Claude Yao DO [address] [place] [address] PCP - General Internal Medicine 05/09/24 documented as of this encounter
--- OUTSIDE RECORDS SUMMARY | 2024-07-27 10:39 | External Medical Summary | Summary of Care ---
Author Name Unknown Organization [facility] Address [address] [place] [address] Phone [phone] Care Team Providers Care Particleboard Factory Worker Name Role Phone Jean Claude Yao DO Primary Care Provider [phone] Reason for Visit * Reason Comments Chemotherapy C1 D8 Darzalex Faspr o/ velcade * Episode Based Medications (Routine) - Authorized Specialty Diagnoses / Procedures Referred By Felicita t Referred To Contact Diagnoses Multiple myeloma not having achieved remission (HCC) Encounter for antineoplastic chemotherapy Procedures [place] DARATUMUMAB, HYALURONIDASE [place] INJECTION, BORTEZOMIB, 0.1MG Abbey Aguiar MD 200 [facility] [place] [address] Anc Hem/Onc [facility] Laure [address] [place] [phone] Referral ID Status Reason Start Date Expiration Date V isits Requested Visits Authorized [id number] Authorized 06/03/2024 06/03/2025 999 999 Encounter Details Date Type Department Care Team (Latest Contact Info) Description 07/04/2024 9:00 AM EDT Hem/Onc Treatment Hematology/Oncolog y Treatment, [address] [address] Laure, Chair 10 Hem Onc [address] [place] [address] Multiple myeloma not having achieved remission [...] Description 07/25/2024 8:00 AM EDT Laboratory Laboratory [facility] [address] [place] [phone] Laure, Lab Scenery [address] [place] [address] 07/25/2024 9:00 AM EDT Hem/Onc Treatment Hematology/Oncolog y Treatment, [address] [place] [phone] [place], Chair 3 Hem Onc [facility] [address] [place] [address] [address] 07/28/2024 8:00 AM EDT Laboratory Laboratory [facility] [place] [address] [place] [address] [address] Laure, Lab [facility] [address] [place] [address] [address] 07/28/2024 9:00 AM EDT Hem/Onc Treatment Hematology/Oncolog y Treatment, [place] 200 [facility] [place] [address] Laure, Chair 6 Hem Onc Scenery [address] [place] [address] 08/01/2024 7:20 AM EDT Laboratory Laboratory [facility] Laure [place] [address] [place] [phone] Laure, Lab Scenery [address] [facility] [place] [address] 08/01/2024 8:00 AM EDT Office Visit Hematology/Oncolog y [facility] [place] [address] [place] [phone] Abbey Aguiar MD [address] [place] [address] 08/01/2024 8:30 AM EDT Hem/Onc Treatment Hematology/Oncolog y [facility], [place] [address] [place] [phone] Laure, Chair 5 Hem Onc Scenery [address] [place] [address] 08/08/2024 9:00 AM EDT Pharmacy Pharmacy Hematology Oncology [place] [address] [place] [address] [facility], [facility] Hem/Onc [address] [place] [address] 08/23/2024 10:00 AM EDT Office Visit Family Practice 65 [facility], [place] 293 [place] [address] Jean Claude Yao, 293 [facility] [place] [address] 09/08/2024 2:30 PM EDT Hospital Encounter ENDO [facility], Endoscopy Room [facility] [address] [place] [phone] Irving Iyer MD 132 [facility] [place] [address] 09/08/2024 2:30 PM EDT - 09/08/2024 3:00 PM EDT Surgery ENDO [facility], Endoscopy Room [facility] [address] [place] [phone] Irving Iyer MD [address] [place] [address] COLONOSCOPY FLEXIBLE PROXIMAL DIAGNOSTIC 03/13/2025 11:00 AM EDT Office Visit Sleep Disorders Ctr [facility] [address] [place] [phone] Ruma Orellana DO [address] [place] [address] Scheduled Procedures Name Priority Associated Diagnoses Date/Ti me COLONOSCOPY FLEXIBLE PROXIMAL DIAGNOSTIC Recall History of colonic polyps 09/08/2024 2:30 PM EDT Health Maintenance Due Date Last Done Comments Cologuard 1997 Fecal Occult Blood Test 1997 Sigmoidoscopy 1997 Adult Wellness Visit 2018 COVID-19 Vaccine (3 - Moderna risk series) 04/19/2021 03/22/2021, 02/21/2021 Zoster Vaccines (2 of 2) 02/03/2023 12/09/2022, 11/2011 CKD PHOS USE SMARTSET 46206 06/15/2024 06/15/2023 Colonoscopy 06/29/2024 06/29/2023, 06/16, 03/16/2023, Additional history exists Colorectal Cancer Screening 06/29/2024 Influenza Vaccine (FLU shot) (#1) 2024 08/03/2023, 08/08/2022 HbA1c 09/29/2024 03/29/2024, 1211/2022, 06/15/2023 Depression Screening 09/30/2024 09/30/2023 GFR 01/19/2025 07/22/2024, 0901/2024, 07/11/2024, Additional history exists Diabetic Eye Exam 01/20/2025 01/21/2024, , 05/26/2022 Diabetic Foot Exam 04/12/2025 04/12/2024, 04/12/2024 Albumin/Creatinine Ratio 05/09/2025 06/ 024, 06/15/2023, 06/03/2022 CKD HGB USE SMARTSET 87928 07/22/202507/22, 07/22/2024, 07/19/2024, Additional history exists DTap/Tdap [...] this encounter Medical Devices Implanted Type Area Territory Account Representative Device Identifier Shelf Expiration Date Model / Serial / Lot Sureclip 16mm 235cm - [id number] Implanted:Qty: 1 on 03/16/2023 by Irving Iyer MD at OR [facility] MICRO TECH ENDOSCOPY [id number] 05/19/2025 [id number] / / [id number] Duraclip 16mm Xlg Repostn - [id number] Implanted:Qty: 1 on 03/16/2023 by Irving Iyer MD at OR [facility] [employer] [id number] 05/18/2024 [id number] / / [id number] Duraclip 16mm Xlg Repostn - [id number] Implanted:Qty: 1 on 03/16/2023 by Irving Iyer MD at OR [facility] [employer] [id number] 05/18/2024 [id number] / / [id number] Duraclip 16mm Xlg Repostn - [id number] Implanted:Qty: 1 on 03/16/2023 by Irving Iyer MD at OR [facility] [employer] [id number] 05/18/2024 [id number] / / [id number] Duraclip 16mm Xlg Repostn - [id number] Implanted:Qty: 1 on 03/16/2023 by Irving Iyer MD at OR [facility] [employer] [id number] 05/18/2024 [id number] / / [id number] Duraclip 16mm Xlg Repostn - [id number] Implanted:Qty: 1 on 03/16/2023 by Irving Iyer MD at OR [facility] [employer] [id number] 05/18/2024 [id number] / / [id number] Duraclip 16mm Xlg Repostn - [id number] Implanted:Qty: 1 on 03/16/2023 by Irving Iyer MD at OR [facility] [employer] [id number] 05/19/2024 [id number] / / [id number] Duraclip 16mm Xlg Repostn - [id number] Implanted:Qty: 1 on 03/16/2023 by Irving Iyer MD at OR [facility] [employer] [id number] 05/19/2024 [id number] / / [id number] Duraclip 16mm Xlg Repostn - [id number] Implanted:Qty: 1 on 03/16/2023 by Irving Iyer MD at OR [facility] [employer] [id number] 05/19/2024 [id number] / / [id number] Duraclip 16mm Xlg Repostn - [id number] Implanted:Qty: 1 on 03/16/2023 by Irving Iyer MD at OR [facility] [employer] [id number] 05/18/2024 [id number] / / [id number] Duraclip 16mm Xlg Repostn - [id number] Implanted:Qty: 1 on 03/16/2023 by Irving Iyer MD at OR [facility] [employer] [id number] 05/18/2024 [id number] / / [id number] Duraclip 16mm Xlg Repostn - [id number] Implanted:Qty: 1 on 03/16/2023 by Irving Iyer MD at OR [facility] [employer] [id number] 05/18/2024 [id number] / / [id number] Duraclip 16mm Xlg Repostn - [id number] Implanted:Qty: 1 on 03/16/2023 by Irving Iyer MD at OR [facility] [employer] [id number] 05/18/2024 [id number] / / [id number] Duraclip 16mm Xlg Repostn - [id number] Implanted:Qty: 1 on 03/16/2023 by Irving Iyer MD at OR [facility] [employer] [id number] 05/18/2024 [id number] / / [id number] documented as of this encounter Visit Diagnoses [...] Right Lower Daratumumab-hyaluronidase- fihj (Darzalex Faspro) 1800 mg-80533 units/ 15 ml subcut inj 15 mL, [...] mg documented in this encounter Care Teams Particleboard Factory Worker Relationship Specialty Start Date End Date Jean Claude Yao DO [address] [place] [address] PCP - General Internal Medicine 05/09/24 documented as of this encounter
--- OUTSIDE RECORDS SUMMARY | 2024-07-27 10:40 | External Medical Summary | Summary of Care ---
Author Name Unknown Organization [facility] Address [address] [place] [address] Phone [phone] Care Team Providers Care Chemical Process Engineer Name Role Phone CaseybernardJean Claude DO Primary Care Provider [phone] Encounter Details Date Type Department Care Team (Late st Contact Info) Description 07/19/2024 Orders Only Hematology/Oncology, [facility] [address] [place] [address] Abbey Aguiar MD 200 [facility] [place] [phone] Allergies No known active allergiesdocumented as of this encounter (statuses as of 07/19/2024) Medications Medication Sig Dispensed Refills Start Date [...] as of this encounter (statuses as of 07/19/2024) Active Problems Problem Noted Date Diagnosed Date [...] as of this encounter (statuses as of 07/19/2024) Resolved Problems Problem Noted Date Diagnosed Date Resolved Date Prediabetes 10/26/2023 12/31/2023 Overview: Per Prediabetes protocol Hypertensive kidney disease with stage 3a chronic kidney disease 07/02/2023 03/29/2024 Lesion of pancreas 12/09/2022 documented as of this encounter (statuses as of 07/19/2024) Immunizations Name Administration Dates Next Due COVID-19 [...] Description 07/22/2024 7:50 AM EDT Laboratory Laboratory [facility]elli [facility] [place] [address] [place] [phone] Laure, Lab [place] [address] [place] [address] 07/22/2024 9:00 AM EDT Hem/Onc Treatment Hematology/Oncolog y Treatment, [place] 200 [facility] [place] [phone] Laure, Chair 6 Hem Onc Scenery [address] [place] [address] 07/25/2024 8:00 AM EDT Laboratory Laboratory Kelli Kelsey [place] [address] [place] [phone] Laure, Lab [place] [address] [place] [address] 07/25/2024 9:00 AM EDT Hem/Onc Treatment Hematology/Oncolog y Treatment, [place] 200 [facility] [place] [phone] Laure, Chair 3 Hem Onc Scenery [address] [place], [place] [address] 07/28/2024 8:00 AM EDT Laboratory Laboratory [facility] Laure [place] [address] [place], [place] [phone] Laure, Lab Scenery [address] [facility] [place], [place] [address] 07/28/2024 9:00 AM EDT Hem/Onc Treatment Hematology/Oncolog y Treatment, [place] [address] [place], [place] [address] Laure, Chair 6 Hem Onc Scenery [address] [place], [place] [address] 08/01/2024 7:20 AM EDT Laboratory Laboratory [facility] Laure [place] [address] [place] [phone] Laure, Lab Scenery [address] [place], [place] [address] 08/01/2024 8:00 AM EDT Office Visit [facility] [place]ure [place] [address] [place], [place] [phone] Abbey Aguiar MD [address] [place], [place] [address] 08/01/2024 8:30 AM EDT Hem/Onc Treatment Hematology/Oncolog y Treatment, [place] [address] [place], [place] [phone] Laure, Chair 5 Hem Onc Scenery [address] [place], [place] [address] 08/08/2024 9:00 AM EDT Pharmacy Pharmacy Hematology Oncology [place] [address] [place] [address] [facility], [facility] Hem/Onc [facility] [place] [place] [address] 08/23/2024 10:00 AM EDT Office Visit Family Practice [address] [place] [address], [place] 293 [facility] [place] [address] Jean Claude Yao, 293 [facility] [place] [address] 09/08/2024 2:30 PM EDT Hospital Encounter ENDO OSS, Endoscopy Room OSS [address] [place] [address] Irving Iyer MD [address] [place] [address] 09/08/2024 2:30 PM EDT - 09/08/2024 3:00 PM EDT Surgery ENDO OSS, Endoscopy Room [facility] [address] [place] [phone] Irving Iyer MD [address] [place] [address] COLONOSCOPY FLEXIBLE PROXIMAL DIAGNOSTIC 03/13/2025 11:00 AM EDT Office Visit Sleep Disorders Ctr [facility] [address] [place] [phone] Ruma Orellana DO [address] [place] [address] Scheduled Procedures Name Priority Associated Diagnoses Date/Ti me COLONOSCOPY FLEXIBLE PROXIMAL DIAGNOSTIC Recall History of colonic polyps 09/08/2024 2:30 PM EDT Health Maintenance Due Date Last Done Comments Cologuard 1997 Fecal Occult Blood Test 1997 Sigmoidoscopy 1997 Adult Wellness Visit 2018 COVID-19 Vaccine (3 - Moderna risk series) 04/19/2021 03/22/2021, 02/21/2021 Zoster Vaccines (2 of 2) 02/03/2023 12/09/2022, 11/2011 CKD PHOS USE SMARTSET 28762 06/15/2024 06/15/2023 Colonoscopy 06/29/2024 06/29/2023, 06/16, 03/16/2023, Additional history exists Colorectal Cancer Screening 06/29/2024 Influenza Vaccine (FLU shot) (#1) 2024 08/03/2023, 08/08/2022 HbA1c 09/29/2024 03/29/2024, 11/2022, 06/15/2023 Depression Screening 09/30/2024 09/30/2023 GFR 01/16/2025 07/19/2024, 06/17, 07/07/2024, Additional history exists Diabetic Eye Exam 01/20/2025 01/21/2024, , 05/26/2022 Diabetic Foot Exam 04/12/2025 04/12/2024, 04/12/2024 Albumin/Creatinine Ratio 05/09/2025 024, 06/15/2023, 06/03/2022 CKD HGB USE SMARTSET 23674 07/19/202507/19, 07/19/2024, 07/11/2024, Additional history exists DTap/Tdap [...] this encounter Medical Devices Implanted Type Area Nylon Hot Wire Cutter Device Identifier Shelf Expiration Date Model / Serial / Lot Sureclip 16mm 235cm - [id number] Implanted:Qty: 1 on 03/16/2023 by Irving Iyer MD at OR [facility] MICRO TECH [facility] [id number] 05/19/2025 [id number] / / [id number] Duraclip 16mm Xlg Repostn - [id number] Implanted:Qty: 1 on 03/16/2023 by Irving Iyer MD at OR [facility] [employer] [id number] 05/18/2024 [id number] / / [id number] Duraclip 16mm Xlg Repostn - [id number] Implanted:Qty: 1 on 03/16/2023 by Irving Iyer MD at OR [facility] [employer] [id number] 05/18/2024 [id number] / / [id number] Duraclip 16mm Xlg Repostn - [id number] Implanted:Qty: 1 on 03/16/2023 by Irving Iyer MD at OR [facility] [employer] [id number] 05/18/2024 [id number] / / [id number] Duraclip 16mm Xlg Repostn - [id number] Implanted:Qty: 1 on 03/16/2023 by Irving Iyer MD at OR [facility] [employer] [id number] 05/18/2024 [id number] / / [id number] Duraclip 16mm Xlg Repostn - [id number] Implanted:Qty: 1 on 03/16/2023 by Irving Iyer MD at OR [facility] [employer] [id number] 05/18/2024 [id number] / / [id number] Duraclip 16mm Xlg Repostn - [id number] Implanted:Qty: 1 on 03/16/2023 by Irving Iyer MD at OR [facility] [employer] [id number] 05/19/2024 [id number] / / [id number] Duraclip 16mm Xlg Repostn - [id number] Implanted:Qty: 1 on 03/16/2023 by Irving Iyer MD at OR [facility] [employer] [id number] 05/19/2024 [id number] / / [id number] Duraclip 16mm Xlg Repostn - [id number] Implanted:Qty: 1 on 03/16/2023 by Irving Iyer MD at OR [facility] [employer] [id number] 05/19/2024 [id number] / / [id number] Duraclip 16mm Xlg Repostn - [id number] Implanted:Qty: 1 on 03/16/2023 by Irving Iyer MD at OR [facility] [employer] [id number] 05/18/2024 [id number] / / [id number] Duraclip 16mm Xlg Repostn - [id number] Implanted:Qty: 1 on 03/16/2023 by Irving Iyer MD at OR [facility] [employer] [id number] 05/18/2024 [id number] / / [id number] Duraclip 16mm Xlg Repostn - [id number] Implanted:Qty: 1 on 03/16/2023 by Irving Iyer MD at OR [facility] [employer] [id number] 05/18/2024 [id number] / / [id number] Duraclip 16mm Xlg Repostn - [id number] Implanted:Qty: 1 on 03/16/2023 by Irving Iyer MD at OR [facility] [employer] [id number] 05/18/2024 [id number] / / [id number] Duraclip 16mm Xlg Repostn - [id number] Implanted:Qty: 1 on 03/16/2023 by Irving Iyer MD at OR [facility] [employer] [id number] 05/18/2024 [id number] / / [id number] documented as of this encounter Care Teams Chemical Process Engineer Relationship Specialty Start Date End Date Jean Claude Yao DO [address] [place] [address] PCP - General Internal Medicine 05/09/24 documented as of this encounter
--- OUTSIDE RECORDS SUMMARY | 2024-07-27 10:40 | External Medical Summary | Summary of Care ---
Author Name Unknown Organization [facility] Address [address] [place] [address] Phone [phone] Care Team Providers Care Social Media Strategist Name Role Phone CaseybernardJean Claude DO Primary Care Provider [phone] Encounter Details Date Type Department Care Team (Late st Contact Info) Description 07/13/2024 Orders Only Hematology/Oncology, [facility] [address] [place] [address] Abbey Aguiar MD 200 [facility] [place] [phone] Allergies No known active allergiesdocumented as of this encounter (statuses as of 07/13/2024) Medications Medication Sig Dispensed Refills Start Date End Date Status CPAP every night at bedtime. Active Aspirin 81 MG Oral Tablet Delayed ReleaseIndication s:Smoldering multiple myeloma (SMM) Take 1 Tablet by mouth in the morning. 30 Tablet 05/25/2023 Active Polyethylene Glycol 3350 17 GM Oral [...] as of this encounter (statuses as of 07/13/2024) Active Problems Problem Noted Date Diagnosed Date [...] as of this encounter (statuses as of 07/13/2024) Resolved Problems Problem Noted Date Diagnosed Date Resolved Date Prediabetes 10/26/2023 12/31/2023 Overview: Per Prediabetes protocol Hypertensive kidney disease with stage 3a chronic kidney disease 07/02/2023 03/29/2024 Lesion of pancreas 12/09/2022 4 documented as of this encounter (statuses as of 07/13/2024) Immunizations Name Administration Dates Next Due COVID-19 [...] 18 years and over) Not on file 3 Are you (or your family) paul eless [...] Department Care Team (Latest Contact Info) Description 07/19/2024 8:30 AM EDT Laboratory Laboratory [facility] [place] [address] [place] [address] Pratima Kelsey [address]elli [address] [facility] [place] [address] 07/19/2024 9:00 AM EDT Pharmacy Pharmacy Hematology Oncology [facility] [address] [place] [address] [facility] Hem/Onc [address] [place] [address] 07/19/2024 9:30 AM EDT Hem/Onc Treatment Hematology/Oncolog y Treatment, [place] [address] [place] [phone] Laure, Chair 8 Hem Onc Scenery [address] [place] [address] 07/22/2024 7:50 AM EDT Laboratory Laboratory [facility] [address] [place] [address] Park, Lab Scenery [address] [place] [address] 07/22/2024 9:00 AM EDT Hem/Onc Treatment Hematology/Oncolog y Treatment, [place] 200 [place] [address] Laure, Chair 6 Hem Onc Scenery [address] [place] [address] 07/25/2024 8:00 AM EDT Laboratory Laboratory [facility] [address] [place] [address] Laure, Lab Scenery [address] [place] [address] 07/25/2024 9:00 AM EDT Hem/Onc Treatment Hematology/Oncolog y Treatment, [place] 200 [place] [address] Laure, Chair 3 Hem Onc Scenery [address] [place] [address] 07/28/2024 8:00 AM EDT Laboratory Laboratory [facility] [address] [place] [address] Laure, Lab Scenery [address] [place] [address] 07/28/2024 9:00 AM EDT Hem/Onc Treatment Hematology/Oncolog y Treatment, [place] 200 [place] [address] Laure, Chair 6 Hem Onc Scenery [address] [place] [address] 08/01/2024 7:20 AM EDT Laboratory Laboratory [facility] [address] [place] [address] Pratima Kelsey Scenery [address] [place], [place] [address] 08/01/2024 8:00 AM EDT Office Visit Hematology/Oncolog y Sc[place] [address] [place] [address] Abbey Aguiar MD [address] [place] [address] 08/01/2024 8:30 AM EDT Hem/Onc Treatment Hematology/Oncolog y [facility] [address] [place], [place] [phone] Laure, Chair 5 Hem Onc Scenery [address] [place], [place] [address] 08/23/2024 10:00 AM EDT Office Visit Family Practice [address] [place] [address] 293 [place] [address] Jean Claude Yao DO [address] [place] [address] 09/08/2024 2:30 PM EDT Hospital Encounter ENDO OSSC, Endoscopy Room [facility] [address] [facility] [place] [phone] Irving Iyer MD [address] [place] [address] 09/08/2024 2:30 PM EDT - 09/08/2024 3:00 PM EDT Surgery ENDO OSSC, Endoscopy Room [facility] [address] [place] [phone] Irving Iyer MD [address] [place] [address] COLONOSCOPY FLEXIBLE PROXIMAL DIAGNOSTIC 03/13/2025 11:00 AM EDT Office Visit Sleep Disorders Ctr [facility] [address] [place] [address] Ruma Orellana, [address] [place] [address] Scheduled Procedures Name Priority Associated Diagnoses Date/Ti me COLONOSCOPY FLEXIBLE PROXIMAL DIAGNOSTIC Recall History of colonic polyps 09/08/2024 2:30 PM EDT Health Maintenance Due Date Last Done Comments Cologuard 1997 Fecal Occult Blood Test 1997 Sigmoidoscopy 1997 Adult Wellness Visit 2018 COVID-19 Vaccine (3 - Moderna risk series) 04/19/2021 03/22/2021, 02/21/2021 Zoster Vaccines (2 of 2) 02/03/2023 12/09/2022, 1211/2011 CKD PHOS USE SMARTSET 91063 06/15/2024 06/15/2023 Colonoscopy 06/29/2024 06/29/2023, 06/16, 03/16/2023, Additional history exists Colorectal Cancer Screening 06/29/2024 Influenza Vaccine (FLU shot) (#1) 2024 08/03/2023, 08/08/2022 HbA1c 09/29/2024 03/29/2024, 11/2022, 06/15/2023 Depression Screening 09/30/2024 09/30/2023 GFR 01/11/2025 07/11/2024, 0812/2023, 07/04/2024, Additional history exists Diabetic Eye Exam 01/20/2025 01/21/2024, , 05/26/2022 Diabetic Foot Exam 04/12/2025 04/12/2024, 04/12/2024 Albumin/Creatinine Ratio 05/09/2025 024, 06/15/2023, 06/03/2022 CKD HGB USE SMARTSET 44045 07/11/202507/11, 07/11/2024, 07/07/2024, Additional history exists DTap/Tdap Vaccines (3 - [...] this encounter Medical Devices Implanted Type Area Flexible Nanny Device Identifier Shelf Expiration Date Model / Serial / Lot Sureclip 16mm 235cm - [id number] Implanted:Qty: 1 on 03/16/2023 by Irving Iyer MD at OR [facility] MICRO TECH ENDOSCOPY [id number] 05/19/2025 [id number] / / [id number] Duraclip 16mm Xlg Repostn - [id number] Implanted:Qty: 1 on 03/16/2023 by Irving Iyer MD at OR [facility] SHAPE [id number] 05/18/2024 [id number] / / [id number] Duraclip 16mm Xlg Repostn - [id number] Implanted:Qty: 1 on 03/16/2023 by Irving Iyer MD at OR [facility] SHAPE [id number] 05/18/2024 [id number] / / [id number] Duraclip 16mm Xlg Repostn - [id number] Implanted:Qty: 1 on 03/16/2023 by Irving Iyer MD at OR [facility] SHAPE [id number] 05/18/2024 [id number] / / [id number] Duraclip 16mm Xlg Repostn - [id number] Implanted:Qty: 1 on 03/16/2023 by Irving Iyer MD at OR [facility] [employer] [id number] 05/18/2024 [id number] / / [id number] Duraclip 16mm Xlg Repostn - [id number] Implanted:Qty: 1 on 03/16/2023 by Irving Iyer MD at OR [facility] [employer] [id number] 05/18/2024 [id number] / / [id number] Duraclip 16mm Xlg Repostn - [id number] Implanted:Qty: 1 on 03/16/2023 by Irving Iyer MD at OR [facility] [employer] [id number] 05/19/2024 [id number] / / [id number] Duraclip 16mm Xlg Repostn - [id number] Implanted:Qty: 1 on 03/16/2023 by Irving Iyer MD at OR [facility] [employer] [id number] 05/19/2024 [id number] / / [id number] Duraclip 16mm Xlg Repostn - [id number] Implanted:Qty: 1 on 03/16/2023 by Irving Iyer MD at OR [facility] [employer] [id number] 05/19/2024 [id number] / / [id number] Duraclip 16mm Xlg Repostn - [id number] Implanted:Qty: 1 on 03/16/2023 by Irving Iyer MD at OR [facility] [employer] [id number] 05/18/2024 [id number] / / [id number] Duraclip 16mm Xlg Repostn - [id number] Implanted:Qty: 1 on 03/16/2023 by Irving Iyer MD at OR [facility] [employer] [id number] 05/18/2024 [id number] / / [id number] Duraclip 16mm Xlg Repostn - [id number] Implanted:Qty: 1 on 03/16/2023 by Irving Iyer MD at OR [facility] [employer] [id number] 05/18/2024 [id number] / / [id number] Duraclip 16mm Xlg Repostn - [id number] Implanted:Qty: 1 on 03/16/2023 by Irving Iyer MD at OR [facility] [place] PHILLIP [id number] 05/18/2024 [id number] / / [id number] Duraclip 16mm Xlg Repostn - [id number] Implanted:Qty: 1 on 03/16/2023 by Irving Iyer MD at OR [facility] [employer] [id number] 05/18/2024 [id number] / / [id number] documented as of this encounter Care Teams Social Media Strategist Relationship Specialty Start Date End Date Jean Claude Yao DO [address] [place] [address] PCP - General Internal Medicine 05/09/24 documented as of this encounter
--- OUTSIDE RECORDS SUMMARY | 2024-07-27 10:40 | External Medical Summary ---
Author Name Unknown Address Unknown Organization [facility] [address] [place] [address] Laboratory Report Ordering Provider Test Date Status CARLENE PEREZ 07/19/2024 08:29:39 Final Observation Date Value Abnormality Reference (Units ) Status BUN 07/19/2024 08:29:39 18 6-20 (mg/dL) Final Creatinine 07/19/2024 08:29:39 1.3 Above high normal 0.6-1.2 (mg/dL) Final Glomerular filtration rate/1.73 sq M.predicted [Volume Rate/Area] in Serum, Plasma or Blood by Creatinine-based formula (CKD-EPI) 07/19/2024 08:29:39 57 Below low normal >=60 (mL/min) Final eGFR is calculated based on the CKD-EPI 2020 equation. Sodium 07/19/2024 08:29:39 141 135-146 (m mol/L) Final Potassium 07/19/2024 08:29:39 4.1 3.5-5.1 (m mol/L) Final Cl 07/19/2024 08:29:39 104 98-107 (mm ol/L) Final CO2 07/19/2024 08:29:39 27 22-32 (mmo l/L) Final Anion gap 07/19/2024 08:29:39 10 7-15 (mmol /L) Final Glucose 07/19/2024 08:29:39 137 Above high normal 70 -120 (mg/dL) Final Albumin 07/19/2024 08:29:39 3.6 Below low normal 3.8 -5.0 (g/dL) Final AST (Aspartate aminotransferase) 07/19/2024 08:29:39 13 10-50 (U/L) Fin al Alk Phos 07/19/2024 08:29:39 83 35-130 (U/ L) Final Bilirubin, Total 07/19/2024 08:29:39 0.7 <=1 .2 (mg/dL) Final Calcium 07/19/2024 08:29:39 9.0 8.4-10.2 ( mg/dL) Final Protein 07/19/2024 08:29:39 6.9 6.0-8.3 (g /dL) Final ALT (Alanine aminotransferase) 07/19/2024 08:29:39 12 10-50 (U/L) Toby pruett Performing Location [facility] [place] [address]
--- OUTSIDE RECORDS SUMMARY | 2024-07-27 10:40 | External Medical Summary | Summary of Care ---
Author Name Unknown Organization [facility] Address [address] [place] [address] Phone [phone] Care Team Providers Care Collar Starcher Name Role Phone Jean Claude Yao DO Primary Care Provider [phone] Reason for Visit * Reason Onset Date Comments Medication Refill 07/11/2024 Encounter Details Date Type Department Care Team (Late st Contact Info) Description 07/11/2024 Refill Pharmacy, [facility] [address] [facility] [address] Abbey Aguiar MD [address] [place] [address] Smoldering multiple myeloma (SMM)* Allergies No known active allergiesdocumented as of [...] 8:30 AM EDT Laboratory Laboratory [facility] [place] [address] [place] [phone] Pratima Kelsey 200 Kelli Mendoza [facility] [place] [address] 07/19/2024 9:00 AM EDT Pharmacy Pharmacy Hematology Oncology [place] [address] [place] [address] [facility], [facility] Clinic Hem/Onc [facility] [place] [address] 07/19/2024 9:30 AM EDT Hem/Onc Treatment Hematology/Oncolog y Treatment, [place] [address] [place] [phone] Laure, Chair 8 Hem Onc [facility] [address] [place] [address] 07/22/2024 7:50 AM EDT Laboratory Laboratory [facility] [address] [place] [address] Laure, Lab Scenery [address] [place] [address] 07/22/2024 9:00 AM EDT Hem/Onc Treatment Hematology/Oncolog y Treatment, [place] [address] [facility] [place] [address] Laure, Chair 6 Hem Onc Scenery [address] [place] [address] 07/25/2024 8:00 AM EDT Laboratory Laboratory [facility] [address] [place] [address] Laure, Lab Scenery [address] [place] [address] 07/25/2024 9:00 AM EDT Hem/Onc Treatment Hematology/Oncolog y Treatment, [place] [address] [facility] [place] [address] Laure, Chair 3 Hem Onc Scenery [address] [place] [address] 07/28/2024 8:00 AM EDT Laboratory Laboratory [facility] [address] [place] [address] Laure, Lab Scenery [address] [place] [address] 07/28/2024 9:00 AM EDT Hem/Onc Treatment Hematology/Oncolog y Treatment, [place] [address] [facility] [place] [address] Laure, Chair 6 Hem Onc Scenery [address] [place] [address] 08/01/2024 7:20 AM EDT Laboratory Laboratory [facility] [address] [place], [place] [phone] Laure, Lab Scenery [address] [place], [place] [address] 08/01/2024 8:00 AM EDT Office Visit Hematology/Oncolog y [facility] [place] [address] [place] [phone] Abbey Aguiar MD [address] [place], [place] [address] 08/01/2024 8:30 AM EDT Hem/Onc Treatment Hematology/Oncolog y [facility] [address] [place], [place] [phone] Laure, Chair 5 Hem Onc Scenery [address] [place], [place] [address] 08/23/2024 10:00 AM EDT Office Visit Family Practice [address] [place] [address] 293 [facility] [place] [address] Jean Claude Yao, [address] [place] [address] 09/08/2024 2:30 PM EDT Hospital Encounter ENDO OSS, Endoscopy Room [facility] [address] [place] [phone] Irving Iyer MD [address] [place] [address] 09/08/2024 2:30 PM EDT - 09/08/2024 3:00 PM EDT Surgery ENDO OSSC, Endoscopy Room [facility] [address] [place] [phone] Irving Iyer MD [address] [place] [address] COLONOSCOPY FLEXIBLE PROXIMAL DIAGNOSTIC 03/13/2025 11:00 AM EDT [facility] [address] [place] [address] Ruma Orellana DO [address] [place] [address] Scheduled Procedures Name Priority Associated Diagnoses Date/Ti me COLONOSCOPY FLEXIBLE PROXIMAL DIAGNOSTIC Recall History of colonic polyps 09/08/2024 2:30 PM EDT Health Maintenance Due Date Last Done Comments Cologuard 1997 Fecal Occult Blood Test 1997 Sigmoidoscopy 1997 Adult Wellness Visit 2018 COVID-19 Vaccine (3 - Moderna risk series) 04/19/2021 03/22/2021, 02/21/2021 Zoster Vaccines (2 of 2) 02/03/2023 12/09/2022, 12/11/2011 CKD PHOS USE SMARTSET 85095 06/15/2024 06/15/2023 Colonoscopy 06/29/2024 06/29/2023, 06/16, 03/16/2023, Additional history exists Colorectal Cancer Screening 06/29/2024 Influenza Vaccine (FLU shot) (#1) 2024 08/03/2023, 08/08/2022 HbA1c 09/29/2024 03/29/2024, 120 11/2022, 06/15/2023 Depression Screening 09/30/2024 09/30/2023 GFR 01/11/2025 07/11/2024, 0812/2023, 07/04/2024, Additional history exists Diabetic Eye Exam 01/20/2025 01/21/2024, , 05/26/2022 Diabetic Foot Exam 04/12/2025 04/12/2024, 04/12/2024 Albumin/Creatinine Ratio 05/09/2025 024, 06/15/2023, 06/03/2022 CKD HGB USE SMARTSET 39956 07/11/202507/11, 07/11/2024, 07/07/2024, Additional history exists DTap/Tdap [...] this encounter Medical Devices Implanted Type Area Advertising Editor Device Identifier Shelf Expiration Date Model / Serial / Lot Sureclip 16mm 235cm - [id number] Implanted:Qty: 1 on 03/16/2023 by Irving Iyer MD at OR [facility] MICRO TECH ENDOSCOPY [id number] 05/19/2025 [id number] / / [id number] Duraclip 16mm Xlg Repostn - [id number] Implanted:Qty: 1 on 03/16/2023 by Irving Iyer MD at OR [facility] [employer] Media[employer] PHILLIP [id number] 05/18/2024 [id number] / / [id number] Duraclip 16mm Xlg Repostn - [id number] Implanted:Qty: 1 on 03/16/2023 by Irving Iyer MD at OR [facility] CONMED PHILLIP [id number] 05/18/2024 [id number] / / [id number] Duraclip 16mm Xlg Repostn - [id number] Implanted:Qty: 1 on 03/16/2023 by Irving Iyer MD at OR [facility] [employer] [id number] 05/18/2024 [id number] / / [id number] Duraclip 16mm Xlg Repostn - [id number] Implanted:Qty: 1 on 03/16/2023 by Irving Iyer MD at OR [facility] [employer] [id number] 05/18/2024 [id number] / / [id number] Duraclip 16mm Xlg Repostn - [id number] Implanted:Qty: 1 on 03/16/2023 by Irving Iyer MD at OR [facility] [employer] [id number] 05/18/2024 [id number] / / [id number] Duraclip 16mm Xlg Repostn - [id number] Implanted:Qty: 1 on 03/16/2023 by Irving Iyer MD at OR [facility] [employer] PH[employer] [id number] 05/19/2024 [id number] / / [id number] Duraclip 16mm Xlg Repostn - [id number] Implanted:Qty: 1 on 03/16/2023 by Irving Iyer MD at OR [facility] [employer] [id number] 05/19/2024 [id number] / / [id number] Duraclip 16mm Xlg Repostn - [id number] Implanted:Qty: 1 on 03/16/2023 by Irving Iyer MD at OR [facility] [employer] [id number] 05/19/2024 [id number] / / [id number] Duraclip 16mm Xlg Repostn - [id number] Implanted:Qty: 1 on 03/16/2023 by Irving Iyer MD at OR [facility] CONMED PHILLIP [id number] 05/18/2024 [id number] / / [id number] Duraclip 16mm Xlg Repostn - [id number] Implanted:Qty: 1 on 03/16/2023 by Irving Iyer MD at OR [facility] [employer] [id number] 05/18/2024 [id number] / / [id number] Duraclip 16mm Xlg Repostn - [id number] Implanted:Qty: 1 on 03/16/2023 by Irving Iyer MD at OR [facility] [employer] [id number] 05/18/2024 [id number] / / [id number] Duraclip 16mm Xlg Repostn - [id number] Implanted:Qty: 1 on 03/16/2023 by Irving Iyer MD at OR [facility] [employer] [id number] 05/18/2024 [id number] / / [id number] Duraclip 16mm Xlg Repostn - [id number] Implanted:Qty: 1 on 03/16/2023 by Irving Iyer MD at OR [facility] [employer] [id number] 05/18/2024 [id number] / / [id number] documented as of this encounter Visit Diagnoses Diagnosis Smoldering multiple myeloma (SMM)- Primary Multiple myeloma, without mention of having achieved remission History of colonic polyps Personal history of colonic polyps documented in this encounter Care Teams Collar Starcher Relationship Specialty Start Date End Date Jean Claude Yao DO [address] [place] [address] PCP - General Internal Medicine 05/09/24 documented as of this encounter
--- OUTSIDE RECORDS SUMMARY | 2024-07-27 10:40 | External Medical Summary ---
Author Name Unknown Address Unknown Organization K09[facility] [place] [address] Laboratory Report Ordering Provider Test Date Status CARLENE PEREZ 07/19/2024 08:29:39 Final Observation Date Value Abnormality Reference (Units ) Status SYNC LEUKOCYTES IN BLOOD BY AUTOMATED COUNT 07/19/2024 08:29:39 4.49 4.00-10.80 (K/uL) Final Segs 07/19/2024 08:29:39 72.4 40.0-75.0 (%) Final Lymphs % 07/19/2024 08:29:39 13.8 Below low normal 18.0-42.0 (%) Final Monos 07/19/2024 08:29:39 10.5 1.0-11.0 (%) Final Eosinophils 07/19/2024 08:29:39 2.9 0.0-6.0 (%) Final Basos 07/19/2024 08:29:39 0.4 0.0-2.0 (%) Final Absolute Segs 07/19/2024 08:29:39 3.25 1.80-7.70 (K/uL) Final Lymphs, absolute 07/19/2024 08:29:39 0.62 Below low normal 1.00-4.80 (K/ul) Final Monos, Abs 07/19/2024 08:29:39 0.47 0.00-1.10 (K/uL) Final Eos, Abs 07/19/2024 08:29:39 0.13 0.00-0.70 (K/uL) Final Basos, Abs 07/19/2024 08:29:39 0.02 0.00-0.20 (K/uL) Final Performing Location [facility] [place] [address]
--- OUTSIDE RECORDS SUMMARY | 2024-07-27 10:40 | External Medical Summary ---
Author Name Unknown Address Unknown Organization K09[facility] [place] [address] Laboratory Report Ordering Provider Test Date Status CARLENE PEREZ 07/19/2024 08:29:39 Final Observation Date Value Abnormality Reference (Units ) Status WBC, Total 07/19/2024 08:29:39 4.49 4.00-10.8 0 (K/uL) Final RBC 07/19/2024 08:29:39 3.00 4.50-5.25 (M/uL) Final Hemoglobin 07/19/2024 08:29:39 10.5 Below low normal 14 .0-16.8 (g/dL) Final HCT 07/19/2024 08:29:39 31.9 Below low normal 40. 0-48.4 (%) Final MCV 07/19/2024 08:29:39 106.3 82.0-99.5 (fL) Final MCH 07/19/2024 08:29:39 35.0 27.0-34.0 (pg) Final MCHC 07/19/2024 08:29:39 32.9 32.0-36.0 (g/dL) Final RDW 07/19/2024 08:29:39 14.7 11.5-15.5 (%) Final Platelets 07/19/2024 08:29:39 113 Below low normal 140 -400 (K/uL) Final MPV 07/19/2024 08:29:39 9.9 6.6-11.1 ( fL) Final Performing Location [facility] [place] [address]
--- OUTSIDE RECORDS SUMMARY | 2024-07-27 10:40 | External Medical Summary | Summary of Care ---
Author Name Unknown Organization [facility] Address [address] [place] [address] Phone [phone] Care Team Providers Care Character Impersonator Name Role Phone Jean Claude Yao DO Primary Care Provider [phone] Reason for Visit * Reason Comments Outpatient Testing Encounter Details Date Type Department Care Team (Late st Contact Info) Description 07/19/2024 8:30 AM EDT Laboratory Laboratory [facility] [place] [address] [place] [address] [place] 200 [facility] [place] [address] Multiple myeloma not having achieved remission (HCC) [...] Care Team (Latest Contact Info) Description 07/19/2024 9:00 AM EDT Pharmacy Pharmacy Hematology Oncology [facility] [address] [place] [address] [facility], [facility] Hem/Onc [address] [place] [address] 07/19/2024 9:30 AM EDT Hem/Onc Treatment Hematology/Oncolog y Treatment, [place] [address] [place] [address] Laure, Chair 8 Hem Onc Scenery [address] [place] [address] Arrived 07/22/2024 7:50 AM EDT Laboratory Laboratory [facility] Laure [place] [address] [place] [address] Laure, Lab Scenery [address] [place] [address] 07/22/2024 9:00 AM EDT Hem/Onc Treatment Hematology/Oncolog y Treatment, [place] [address] [place] [address] Laure, Chair 6 Hem Onc Scenery [address] [place] [address] 07/25/2024 8:00 AM EDT Laboratory Laboratory Scenery [place] [address] [place] [address] Laure, Lab Scenery [address] [place] [address] 07/25/2024 9:00 AM EDT Hem/Onc Treatment Hematology/Oncolog y Treatment, [place] [address] [place] [address] Laure, Chair 3 Hem Onc Scenery [address] [place] [address] 07/28/2024 8:00 AM EDT Laboratory Laboratory [facility] [address] [place] [address] Laure, Lab Scenery [address] [place] [address] 07/28/2024 9:00 AM EDT Hem/Onc Treatment Hematology/Oncolog y Treatment, [place] 200 [facility] [place] [address] Laure, Chair 6 Hem Onc Scenery [address] [place] [address] 08/01/2024 7:20 AM EDT Laboratory Laboratory [facility] [place] [address] [place] [address] Laure, Lab Scenery [address] [place] [address] 08/01/2024 8:00 AM EDT Office Visit Hematology/Oncolog y Scenery [place] [address] [place], [place] [address] Abbey Aguiar MD [address] [place], [place] [address] 08/01/2024 8:30 AM EDT Hem/Onc Treatment Hematology/Oncolog y Treatment, [place] [address] [place], [place] [phone] Laure, Chair 5 Hem Onc Scenery 200 [facility] [place], [place] [address] 08/23/2024 10:00 AM EDT Office Visit Family Practice [address] [place] [address] 293 [facility], [place] [address] Jean Claude Yao, 293 [facility], [place] [address] 09/08/2024 2:30 PM EDT Hospital Encounter ENDO OSSC, Endoscopy Room [facility] [address] [place] [phone] Irving Iyer MD [address] [place] [address] 09/08/2024 2:30 PM EDT - 09/08/2024 3:00 PM EDT Surgery ENDO OSSC, Endoscopy Room [facility] [address] [place] [phone] Irving Iyer MD [address] [place] [address] COLONOSCOPY FLEXIBLE PROXIMAL DIAGNOSTIC 03/13/2025 11:00 AM EDT Office Visit Sleep Disorders Ctr Ruel Watts [place] [address] [place] [phone] Ruma Orellana, [address] [place] [address] Pending Results Name Type Priority Associated Diagnoses Date /Time COMPREHENSIVE METABOLIC PANEL Lab STAT Multiple myeloma not having achieved remission (HCC) 07/19/2024 8:29 AM EDT Scheduled Procedures Name Priority Associated [...] 02/03/2023 12/09/2022, 1211/2011 CKD PHOS USE SMARTSET 05776 06/15/2024 06/15/2023 Colonoscopy 06/29/2024 06/29/2023, 06/16, 03/16/2023, Additional history exists Colorectal Cancer Screening 06/29/2024 Influenza Vaccine (FLU shot) (#1) 2024 08/03/2023, 08/08/2022 HbA1c 09/29/2024 03/29/2024, 1211/2022, 06/15/2023 Depression Screening 09/30/2024 09/30/2023 GFR 01/11/2025 07/11/2024, 06/17, 07/04/2024, Additional history exists Diabetic Eye Exam 01/20/2025 01/21/2024, , 05/26/2022 Diabetic Foot Exam 04/12/2025 04/12/2024, 04/12/2024 Albumin/Creatinine Ratio 05/09/2025 024, 06/15/2023, 06/03/2022 CKD HGB USE SMARTSET 92947 07/19/202507/19, 07/19/2024, 07/11/2024, Additional history exists DTap/Tdap Vaccines (3 - Td or Tdap) 04/07/2034 04/07/2024, 04/18/2015 Pneumococcal Vaccine: 65+ Years Completed 01/12/2019, 12/15/2017 AAA Screening Completed 02/21/2023, 02/0 12/2022, 08/01/2022, Additional history exists RETIRED - [...] this encounter Medical Devices Implanted Type Area Middle School Guidance Counselor Device Identifier Shelf Expiration Date Model / Serial / Lot Sureclip 16mm 235cm - [id number] Implanted:Qty: 1 on 03/16/2023 by Irving Iyer MD at OR [facility] MICRO TECH ENDOSCOPY [id number] 05/19/2025 [id number] / / [id number] Duraclip 16mm Xlg Repostn - [id number] Implanted:Qty: 1 on 03/16/2023 by Irving Iyer MD at OR [facility] CONMED PHILLIP [id number] 05/18/2024 [id number] / / [id number] Duraclip 16mm Xlg Repostn - [id number] Implanted:Qty: 1 on 03/16/2023 by Irving Iyer MD at OR [facility] CONMED PHILLIP [id number] 05/18/2024 [id number] / / [id number] Duraclip 16mm Xlg Repostn - [id number] Implanted:Qty: 1 on 03/16/2023 by Irving Iyer MD at OR [facility] CONMED PHILLIP [id number] 05/18/2024 [id number] / / [id number] Duraclip 16mm Xlg Repostn - [id number] Implanted:Qty: 1 on 03/16/2023 by Irving Iyer MD at OR [facility] CONMED PHILLIP [id number] 05/18/2024 [id number] / / [id number] Duraclip 16mm Xlg Repostn - [id number] Implanted:Qty: 1 on 03/16/2023 by Irving Iyer MD at OR [facility] CONMED PHILLIP [id number] 05/18/2024 [id number] / / [id number] Duraclip 16mm Xlg Repostn - [id number] Implanted:Qty: 1 on 03/16/2023 by Irving Iyer MD at OR [facility] CONMED PHILLIP [id number] 05/19/2024 [id number] / / [id number] Duraclip 16mm Xlg Repostn - [id number] Implanted:Qty: 1 on 03/16/2023 by Irving Iyer MD at OR [facility] CONMED PHILLIP [id number] 05/19/2024 [id number] / / [id number] Duraclip 16mm Xlg Repostn - [id number] Implanted:Qty: 1 on 03/16/2023 by Irving Iyer MD at OR [facility] CONMED PHILLIP [id number] 05/19/2024 [id number] / / [id number] Duraclip 16mm Xlg Repostn - [id number] Implanted:Qty: 1 on 03/16/2023 by Irving Iyer MD at OR [facility] CONMED PHILLIP [id number] 05/18/2024 [id number] / / [id number] Duraclip 16mm Xlg Repostn - [id number] Implanted:Qty: 1 on 03/16/2023 by Irving Iyer MD at OR [facility] CON[employer] [id number] 05/18/2024 [id number] / / [id number] Duraclip 16mm Xlg Repostn - [id number] Implanted:Qty: 1 on 03/16/2023 by Irving Iyer MD at OR [facility] CON[employer] [id number] 05/18/2024 [id number] / / [id number] Duraclip 16mm Xlg Repostn - [id number] Implanted:Qty: 1 on 03/16/2023 by Irving Iyer MD at OR [facility] [employer] [id number] 05/18/2024 [id number] / / [id number] Duraclip 16mm Xlg Repostn - [id number] Implanted:Qty: 1 on 03/16/2023 by Irving Iyer MD at OR [facility] [employer] [id number] 05/18/2024 [id number] / / [id number] documented as of this encounter Procedures Procedure Name Priority Date/Time Associated Diagnosis Comments DIFFERENTIAL, AUTOMATED STAT 07/19/2024 8:29 AM EDT Multiple myeloma not having achieved remission (HCC) CBC STAT 07/19/2024 8:29 AM EDT Multiple myeloma not having achieved remission (HCC) CBC STAT 07/19/2024 8:29 AM EDT Multiple myeloma not having achieved remission (HCC) documented in this encounter Results * (ABNORMAL) DIFFERENTIAL, AUTOMATED (07/19/2024 8:29 AM EDT) WBC 4.49 4.00 - 10.80 K/uL 07/19/2024 8:38 AM EDT LAB[facility]ATORY [place] 56-02 Neutrophils % 72.4 40.0 - 75.0 % 07/19/2024 8:38 AM EDT LABORATORY [facility] 56-02 Lymphocytes % 13.8(L) 18.0 - 42.0 % 07/19/2024 8:38 AM EDT [facility] 56-02 Monocytes % 10.5 1.0 - 11.0 % 07/19/2024 8:38 AM EDT [facility] 56-02 Eosinophils % 2.9 0.0 - 6.0 % 07/19/2024 8:38 AM EDT [facility] 56-02 Basophils % 0.4 0.0 - 2.0 % 07/19/2024 8:38 AM EDT LABORATORY [facility] 56-02 Absolute Neutrophils 3.25 1.80 - 7.70 K/uL 07/19/2024 8:38 AM EDT [facility] 56-02 Absolute Lymphocytes 0.62(L) 1.00 - 4.80 K/ul 07/19/2024 8:38 AM EDT [facility] 56 Absolute Monocytes 0.47 0.00 - 1.10 K/uL 07/19/2024 8:38 AM EDT [facility] 56 Absolute Eosinophils 0.13 0.00 - 0.70 K/uL 07/19/2024 8:38 AM EDT [facility] 56 Absolute Basophils 0.02 0.00 - 0.20 K/uL 07/19/2024 8:38 AM EDT [facility] 56 Blood Venous blood specimen / Unknown Venipuncture / Unknown 07/19/2024 8:29 AM EDT 07/19/2024 8:29 AM EDT Abbey Aguiar MD LAB BLOOD [facility] [address] [place] [address] * (ABNORMAL) CBC (07/19/2024 8:29 AM EDT) WBC 4.49 4.00 - 10.80 K/uL 07/19/2024 8:38 AM EDT [address] RBC 3.00 4.50 - 5.25 M/uL 07/19/2024 8:38 AM EDT [address] HGB 10.5(L) 14.0 - 16.8 g/dL 07/19/2024 8:38 AM EDT [address] HCT 31.9(L) 40.0 - 48.4 % 07/19/2024 8:38 AM EDT [facility] 56 MCV 106.3 82.0 - 99.5 fL 07/19/2024 8:38 AM EDT [address] MCH 35.0 27.0 - 34.0 pg 07/19/2024 8:38 AM EDT [facility] 56 MCHC 32.9 32.0 - 36.0 g/dL 07/19/2024 8:38 AM EDT [facility] RDW 14.7 11.5 - 15.5 % 07/19/2024 8:38 AM EDT [facility] PLT 113(L) 140 - 400 K/uL 07/19/2024 8:38 AM EDT [facility] MPV 9.9 6.6 - 11.1 fL 07/19/2024 8:38 AM EDT [facility] Blood Venous blood specimen / Unknown Venipuncture / Unknown 07/19/2024 8:29 AM EDT 07/19/2024 8:29 AM EDT Abbey Aguiar MD LAB BLOOD [facility] [address] [place] [address] documented in this encounter Visit Diagnoses Diagnosis Multiple myeloma not having achieved remission (HCC) Multiple myeloma, without mention of having achieved remission History of colonic polyps Personal history of colonic polyps documented in this encounter Care Teams Character Impersonator Relationship Specialty Start Date End Date Jean Claude Yao DO [address] [facility], [place] [address] PCP - General Internal Medicine 05/09/24 documented as of this encounter
--- OUTSIDE RECORDS SUMMARY | 2024-07-27 10:40 | External Medical Summary | Summary of Care ---
Author Name Unknown Organization [facility] Address [address] [place] [address] Phone [phone] Care Team Providers Care License Inspector Name Role Phone Jean Claude Yao DO Primary Care Provider [phone] Reason for Visit * Reason Comments Medication Management Encounter Details Date Type Department Care Team (Late st Contact Info) Description 07/19/2024 9:00 AM EDT Pharmacy Pharmacy Hematology Oncology [facility] [address] [place], [place] [id number] [facility] Hem/Onc [address] [place] [address] Smoldering multiple myeloma (SMM)* Allergies No known [...] No 09/30/2023 Does the household have a [facility] source of income? 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 Aguiar Additional Therapy: Dexamethasone 20mg weekly (on Sundays) Daratumumab - started 06/20/24 Bortezomib Supportive Care Meds: Ondansetron Prochlorperazine Prophylactic Meds: ASA Acyclovir Cycle Dates C1 06/07 - 06/27 C2 ( 15mg; Delayed) 07/12 - 08/01 C3 Delayed; 10mg 08/23 - 09/12 C4 09/22 - 10/12 C5 delayed 11/03 - 11/23 C11 05/08 - 05/28 C12 Frequency change to 06/05 - 06/18 C13 HELD 06/[address] 10mg every other day 07/24 - 08/[address] 5mg daily 08/14 - 08/27 (anticipated) Treatment History: None Dose adjustment / medication hold: 06/30/23-07/11/23: lenalidomide on HOLD due to cytopenias 06/2023: lenalidomide dose reduced to 15mg due to cytopenias C3 and C5 delayed due to neutropenia C13 held due to grade 3/[address] to 10mg every other day C15 DR to 5mg daily Interval History: Lenalidomide RX sent to pharmacy 05/27/24 Per OV 06/01/24, treatment changed to DaraVRd Per TE 06/02/24 addendum 06/06/24, daratumumab and bortezomib require [id number] for insurance approval Per OV 06/29/24, pt to HOLD lenalidomide for C13 Changes to medication list since last visit? No Assessment and Plan: ANC improving to WNL Per PI, no dose adjustment recommended for ANC > 1000 Will monitor closely PLT improving at grade 1 thrombocytopenia Per PI, no dose adjustment recommended for PLT < 50K Will monitor closely All other labs stable Per discussion with Dr. Aguiar, pt to start C14 as above but reduce dose to 10mg every other day Pt repeated instructions back with understanding Pt start C15 at dose reduction of 5mg daily Alteration of treatment placed Harwood plan uploaded and sent to Dr. Aguiar for signature MTM to send next lenalidomide refill from [facility] plan for dose reduction Assessment of compliance: compliant Assessment of adverse effects attributed to drug therapy: N/A Dose adjustment needed based on lab or adverse drug reaction? Yes, resume at DR Follow up: 2 weeks OV/labs; 3 weeks MTM with labs Alejandrina Steele, PharmD, BCOP Clinical Pharmacist, [facility] Oral Chemotherapy [facility] [place] 07/19/2024, 12:18 PM Monitoring Parameters: Estimated CrCl Serum creatinine: 1.3 mg/dL (H) 07/19/24 0829 Estimated creatinine clearance: 61.3 mL/min (A) Hepatitis panel Latest Reference Range & Units 05/21/23 11:52 Hepatitis B Surface Antigen Negative Negative Hepatitis B Surface Antibody, Quantitative mIU/mL <3.5 HEPATITIS B SURFACE ANTIBODY Rpt Hepatitis B Surface Antibody, Interpretation NOT immune to Hepatitis B Virus Hepatitis B Surface Antibody, Qualitative Negative Hepatitis B Core Antibodies IgG and IgM Negative Negative test N/A Suggested lab monitoring Suggested labs (multiple myeloma): CBCd q1wk x 2 cycles, D1 and D15 of cycle 3, then q4wk thereafter; SCr/LFTs/TSH baseline, then q2-3mo; tests 2 negative test 10 to 14 days prior to initiation and w/in 24hr of treatment initiation, q1wk x 1 mo, then q2-4wk through 4 weeks after therapy d/c Is patient a woman of child-bearing potential or having sex with one? No On prophylactic anticoagulation? yes - ASA Treatment Parameters ANC > 1000, PLT > 30K Pertinent labs: Latest Reference Range & Units 07/07/24 08:01 07/11/24 07:48 07/19/24 08:29 WBC 4.00 - 10.80 K/uL 5.10 2.89 (L) 4.49 RBC 4.50 - 5.25 M/uL 2.81 2.98 3.00 HGB 14.0 - 16.8 g/dL 9.7 (L) 10.3 (L) 10.5 (L) HCT 40.0 - 48.4 % 29.9 (L) 30.8 (L) 31.9 (L) MCV 82.0 - 99.5 fL 106.4 103.4 106.3 MCH 27.0 - 34.0 pg 34.5 34.6 35.0 MCHC 32.0 - 36.0 g/dL 32.4 33.4 32.9 RDW 11.5 - 15.5 % 14.9 14.6 14.7 PLT 140 - 400 K/uL 125 (L) 98 (L) 113 (L) MPV 6.6 - 11.1 fL 8.9 10.7 9.9 CBC WITH WBC DIFFERENTIAL Rpt ! Rpt ! Rpt ! Absolute Neutrophils 1.80 - 7.70 K/uL 2.74 1.70 (L) 3.25 Latest Reference Range & Units 07/07/24 08:01 07/11/24 07:48 07/19/24 08:29 Albumin 3.8 - 5.0 g/dL 3.6 (L) 3.5 (L) 3.6 (L) AST 10 - 50 U/L 15 16 13 ALT 10 - 50 U/L 15 15 12 Alkaline Phosphatase 35 - 130 U/L 83 87 83 Bilirubin, Total <=1.2 mg/dL 0.4 0.5 0.7 Time Spent on Encounter: 11 - 15 minutes Encounter Group: Hematology Encounter Interventions Item Category: Oral Chemotherapy Lenalidomide Problem/Rationale: Safety: Needs additional monitoring - Medication Requires monitoring Harwood Plan Review: Alteration of plan Pharmacist Intervention(s): Clarification with Provider, Dose decreased, Lab monitoring, and Medication resumed Magnitude of Intervention: Modification of medication for asymtomatic patients (Level 2) documented in this encounter Plan of Treatment Upcoming Encounters Date Type Department Care Team (Latest Contact Info) Description 07/22/2024 7:50 AM EDT Laboratory Laboratory [facility] [place] [address] [place] [phone] Laure, Lab [facility] [address] [facility] [place] [address] 07/22/2024 9:00 AM EDT Hem/Onc Treatment [facility] [place] [facility] [phone] Laure, Chair 6 Hem Onc [facility] [address] [place] [address] 07/25/2024 8:00 AM EDT Laboratory Laboratory [facility] [place] [address] [place] [address] Laure, Lab [address] [facility] [place] [address] 07/25/2024 9:00 AM EDT Hem/Onc Treatment H[facility]olog [facility], [place] [facility] [phone] Laure, Chair 3 Hem Onc Scenery [address] [place] [address] 07/28/2024 8:00 AM EDT Laboratory Laboratory [facility] Laure [place] [address] [phone] Laure, Lab [address] [place], [place] [address] 07/28/2024 9:00 AM EDT Hem/Onc Treatment Hematology/Oncolog y Treatment, [place] [address] [place], [place] [phone] Laure, Chair 6 Hem Onc [address] [place] [address] 08/01/2024 7:20 AM EDT Laboratory Laboratory [facility] Laure [place] [address] [place] [phone] Laure, Lab [address] [place] [address] 08/01/2024 8:00 AM EDT Office Visit Hematology/Oncolog y [facility] [place] [address] [place], [place] [address] Abbey Aguiar MD [address] [place] [address] 08/01/2024 8:30 AM EDT Hem/Onc Treatment Hematology/Oncolog y Treatment, [place] [address] [place], [place] [phone] Laure, Chair 5 Hem Onc Sc[address]ery [address] [place], [place] [address] 08/08/2024 9:00 AM EDT Pharmacy Pharmacy Hematology Oncology [facility] [address] [place] [address] [facility] Hem/Onc [address] [place] [address] 08/23/2024 10:00 AM EDT Office Visit Family Practice [address], [place] [address] [place] [address] Jean Claude Yao, [address] [place] [address] 09/08/2024 2:30 PM EDT Hospital Encounter ENDO OSSC, Endoscopy Room [facility] [address] [place] [phone] Irving Iyer MD [address] [place] [address] 09/08/2024 2:30 PM EDT - 09/08/2024 3:00 PM EDT Surgery ENDO OSS, Endoscopy Room [facility] [address] [place] [phone] Irving Iyer MD [address] [place] [address] COLONOSCOPY FLEXIBLE PROXIMAL DIAGNOSTIC 03/13/2025 11:00 AM EDT Office Visit Sleep Disorders Ctr [facility] [address] [place] [phone] Ruma Orellana DO [address] [place] [address] Scheduled Procedures Name Priority Associated Diagnoses Date/Ti me COLONOSCOPY FLEXIBLE PROXIMAL DIAGNOSTIC Recall History of colonic polyps 09/08/2024 2:30 PM EDT Health Maintenance Due Date Last Done Comments Cologuard 1997 Fecal Occult Blood Test 1997 Sigmoidoscopy 1997 Adult Wellness Visit 2018 COVID-19 Vaccine (3 - Moderna risk series) 04/19/2021 03/22/2021, 02/21/2021 Zoster Vaccines (2 of 2) 02/03/2023 12/09/2022, 1211/2011 CKD PHOS USE SMARTSET 15383 06/15/2024 06/15/2023 Colonoscopy 06/29/2024 06/29/2023, 06/16, 03/16/2023, Additional history exists Colorectal Cancer Screening 06/29/2024 Influenza Vaccine (FLU shot) (#1) 2024 08/03/2023, 08/08/2022 HbA1c 09/29/2024 03/29/2024, 11/2022, 06/15/2023 Depression Screening 09/30/2024 09/30/2023 GFR 01/16/2025 07/19/2024, 06/17, 07/07/2024, Additional history exists Diabetic Eye Exam 01/20/2025 01/21/2024, , 05/26/2022 Diabetic Foot Exam 04/12/2025 04/12/2024, 04/12/2024 Albumin/Creatinine Ratio 05/09/2025 024, 06/15/2023, 06/03/2022 CKD HGB USE SMARTSET 83205 07/19/202507/19, 07/19/2024, 07/11/2024, Additional history exists DTap/Tdap [...] this encounter Medical Devices Implanted Type Area Career Guidance Technician Device Identifier Shelf Expiration Date Model / Serial / Lot Sureclip 16mm 235cm - [id number] Implanted:Qty: 1 on 03/16/2023 by Irving Iyer MD at OR [facility] MICRO TECH ENDOSCOPY [id number] 05/19/2025 [id number] / / [id number] Duraclip 16mm Xlg Repostn - [id number] Implanted:Qty: 1 on 03/16/2023 by Irving Iyer MD at OR [facility] [employer] [id number] 05/18/2024 [id number] / / [id number] Duraclip 16mm Xlg Repostn - [id number] Implanted:Qty: 1 on 03/16/2023 by Irving Iyer MD at OR [facility] [employer] [id number] 05/18/2024 [id number] / / [id number] Duraclip 16mm Xlg Repostn - [id number] Implanted:Qty: 1 on 03/16/2023 by Irving Iyer MD at OR [facility] [employer] [id number] 05/18/2024 [id number] / / [id number] Duraclip 16mm Xlg Repostn - [id number] Implanted:Qty: 1 on 03/16/2023 by Irving Iyer MD at OR [facility] [employer] [id number] 05/18/2024 [id number] / / [id number] Duraclip 16mm Xlg Repostn - [id number] Implanted:Qty: 1 on 03/16/2023 by Irving Iyer MD at OR [facility] [employer] [id number] 05/18/2024 [id number] / / [id number] Duraclip 16mm Xlg Repostn - [id number] Implanted:Qty: 1 on 03/16/2023 by Irving Iyer MD at OR [facility] [employer] [id number] 05/19/2024 [id number] / / [id number] Duraclip 16mm Xlg Repostn - [id number] Implanted:Qty: 1 on 03/16/2023 by Irving Iyer MD at OR [facility] [employer] [id number] 05/19/2024 [id number] / / [id number] Duraclip 16mm Xlg Repostn - [id number] Implanted:Qty: 1 on 03/16/2023 by Irving Iyer MD at OR [facility] [employer] [id number] 05/19/2024 [id number] / / [id number] Duraclip 16mm Xlg Repostn - [id number] Implanted:Qty: 1 on 03/16/2023 by Irving Iyer MD at OR [facility] [employer] [id number] 05/18/2024 [id number] / / [id number] Duraclip 16mm Xlg Repostn - [id number] Implanted:Qty: 1 on 03/16/2023 by Irving Iyer MD at OR [facility] [employer] [id number] 05/18/2024 [id number] / / [id number] Duraclip 16mm Xlg Repostn - [id number] Implanted:Qty: 1 on 03/16/2023 by Irving Iyer MD at OR [facility] [employer] [id number] 05/18/2024 [id number] / / [id number] Duraclip 16mm Xlg Repostn - [id number] Implanted:Qty: 1 on 03/16/2023 by Irving Iyer MD at OR [facility] [employer] [id number] 05/18/2024 [id number] / / [id number] Duraclip 16mm Xlg Repostn - [id number] Implanted:Qty: 1 on 03/16/2023 by Irving Iyer MD at OR [facility] [employer] [id number] 05/18/2024 [id number] / / [id number] documented as of this encounter Visit Diagnoses Diagnosis Smoldering multiple myeloma (SMM)- Primary Multiple myeloma, without mention of having achieved remission History of colonic polyps Personal history of colonic polyps documented in this encounter Care Teams License Inspector Relationship Specialty Start Date End Date Jean Claude Yao DO [address] [facility] [place] [address] PCP - General Internal Medicine 05/09/24 documented as of this encounter
--- OUTSIDE RECORDS SUMMARY | 2024-07-27 10:40 | External Medical Summary | Summary of Care ---
Author Name Unknown Organization [facility] Address [address] [place] [address] Phone [phone] Care Team Providers Care Order Expediter Name Role Phone CaseybernardJean Claude DO Primary Care Provider [phone] Encounter Details Date Type Department Care Team (Late st Contact Info) Description 07/13/2024 Orders Only Hematology/Oncology, [facility] [address] [place] [address] Abbey Aguiar MD 200 [facility] [place] [phone] Allergies No known active allergiesdocumented as of [...] 8:30 AM EDT Laboratory Laboratory Kelli Kelsey [place] [address] [place] [address] Pratima Kelsey [address] [facility] [place] [address] 07/19/2024 9:00 AM EDT Pharmacy Pharmacy Hematology Oncology [facility] [address] [place] [address] [facility] Hem/Onc [address] [place] [address] 07/19/2024 9:30 AM EDT Hem/Onc Treatment Hematology/Oncolog y Treatment, [place] [address] [place] [phone] Laure, Chair 8 Hem Onc [address] [place] [address] 07/22/2024 7:50 AM EDT Laboratory Laboratory [facility] [address] [place] [phone] [place], Lab Scenery [address] [place] [address] 07/22/2024 9:00 AM EDT Hem/Onc Treatment Hematology/Oncolog y Treatment, [place] [address] [place] [address] Laure, Chair 6 Hem Onc Scenery [address] [place] [address] 07/25/2024 8:00 AM EDT Laboratory Laboratory [facility] [address] [place] [address] Laure, Lab Scenery [address] [place] [address] 07/25/2024 9:00 AM EDT Hem/Onc Treatment Hematology/Oncolog y Treatment, [place] [address] [place] [address] Laure, Chair 3 Hem Onc Scenery [address] [place] [address] 07/28/2024 8:00 AM EDT Laboratory Laboratory [facility] [address] [place] [address] Laure, Lab Scenery [address] [place] [address] 07/28/2024 9:00 AM EDT Hem/Onc Treatment Hematology/Oncolog y Treatment, [place] [address] [place] [address] Laure, Chair 6 Hem Onc Scenery [address] [place] [address] 08/01/2024 7:20 AM EDT Laboratory Laboratory [facility] [address] [place] [address] Pratima Kelsey Scenery [address] [place], [place] [address] 08/01/2024 8:00 AM EDT Office Visit Hematology/Oncolog y Sc[address]ery [place] [address] [place] [phone] Abbey Aguiar MD [address] [place] [address] 08/01/2024 8:30 AM EDT Hem/Onc Treatment Hematology/Oncolog y [facility] [address] [place], [place] [phone] Laure, Chair 5 Hem Onc Scenery [address] [place], [place] [address] 08/23/2024 10:00 AM EDT Office Visit Family Practice [address] [place] [address] [address] [place] [address] Jean Claude Yao DO [address] [place] [address] 09/08/2024 2:30 PM EDT Hospital Encounter ENDO OSSC, Endoscopy Room [facility] [address] [place] [phone] Irving Iyer MD [address] [place] [address] 09/08/2024 2:30 PM EDT - 09/08/2024 3:00 PM EDT Surgery ENDO OSSC, Endoscopy Room [facility] [address] [place] [phone] Irving Iyer MD [address] [place] [address] COLONOSCOPY FLEXIBLE PROXIMAL DIAGNOSTIC 03/13/2025 11:00 AM EDT Office Visit Sleep Disorders Ctr [facility] [address] [place] [address] Ruma Orellana, [address] [place] [address] Scheduled Procedures Name Priority Associated Diagnoses Date/Ti me COLONOSCOPY FLEXIBLE PROXIMAL DIAGNOSTIC Recall History of colonic polyps 09/08/2024 2:30 PM EDT Health Maintenance Due Date Last Done Comments Cologuard 1997 Fecal Occult Blood Test 1997 Sigmoidoscopy 1997 Adult Wellness Visit 2018 COVID-19 Vaccine (3 - Moderna risk series) 04/19/2021 03/22/2021, 02/21/2021 Zoster Vaccines (2 of 2) 02/03/2023 12/09/2022, 1211/2011 CKD PHOS USE SMARTSET 65930 06/15/2024 06/15/2023 Colonoscopy 06/29/2024 06/29/2023, 06/16, 03/16/2023, Additional history exists Colorectal Cancer Screening 06/29/2024 Influenza Vaccine (FLU shot) (#1) 2024 08/03/2023, 08/08/2022 HbA1c 09/29/2024 03/29/2024, 11/2022, 06/15/2023 Depression Screening 09/30/2024 09/30/2023 GFR 01/11/2025 07/11/2024, 0812/2023, 07/04/2024, Additional history exists Diabetic Eye Exam 01/20/2025 01/21/2024, , 05/26/2022 Diabetic Foot Exam 04/12/2025 04/12/2024, 04/12/2024 Albumin/Creatinine Ratio 05/09/2025 024, 06/15/2023, 06/03/2022 CKD HGB USE SMARTSET 10868 07/11/202507/11, 07/11/2024, 07/07/2024, Additional history exists DTap/Tdap [...] this encounter Medical Devices Implanted Type Area Mercury Recoverer Device Identifier Shelf Expiration Date Model / Serial / Lot Sureclip 16mm 235cm - [id number] Implanted:Qty: 1 on 03/16/2023 by Irving Iyer MD at OR [facility] MICRO TECH ENDOSCOPY [id number] 05/19/2025 [id number] / / [id number] Duraclip 16mm Xlg Repostn - [id number] Implanted:Qty: 1 on 03/16/2023 by Irving Iyer MD at OR [facility] [employer] [id number] 05/18/2024 [id number] / / [id number] Duraclip 16mm Xlg Repostn - [id number] Implanted:Qty: 1 on 03/16/2023 by Irving Iyer MD at OR [facility] [employer] [id number] 05/18/2024 [id number] / / [id number] Duraclip 16mm Xlg Repostn - [id number] Implanted:Qty: 1 on 03/16/2023 by Irving Iyer MD at OR [facility] [employer] [id number] 05/18/2024 [id number] / / [id number] Duraclip 16mm Xlg Repostn - [id number] Implanted:Qty: 1 on 03/16/2023 by Irving Iyer MD at OR [facility] [employer] PHILLIP [id number] 05/18/2024 [id number] / / [id number] Duraclip 16mm Xlg Repostn - [id number] Implanted:Qty: 1 on 03/16/2023 by Irving Iyer MD at OR [facility] [employer] [id number] 05/18/2024 [id number] / / [id number] Duraclip 16mm Xlg Repostn - [id number] Implanted:Qty: 1 on 03/16/2023 by Irving Iyer MD at OR [facility] [employer] [id number] 05/19/2024 [id number] / / [id number] Duraclip 16mm Xlg Repostn - [id number] Implanted:Qty: 1 on 03/16/2023 by Irving Iyer MD at OR [facility] [employer] [id number] 05/19/2024 [id number] / / [id number] Duraclip 16mm Xlg Repostn - [id number] Implanted:Qty: 1 on 03/16/2023 by Irving Iyer MD at OR [facility] [employer] [id number] 05/19/2024 [id number] / / [id number] Duraclip 16mm Xlg Repostn - [id number] Implanted:Qty: 1 on 03/16/2023 by Irving Iyer MD at OR [facility] [employer] [id number] 05/18/2024 [id number] / / [id number] Duraclip 16mm Xlg Repostn - [id number] Implanted:Qty: 1 on 03/16/2023 by Irving Iyer MD at OR [facility] [employer] [id number] 05/18/2024 [id number] / / [id number] Duraclip 16mm Xlg Repostn - [id number] Implanted:Qty: 1 on 03/16/2023 by Irving Iyer MD at OR [facility] [employer] [id number] 05/18/2024 [id number] / / [id number] Duraclip 16mm Xlg Repostn - [id number] Implanted:Qty: 1 on 03/16/2023 by rIving Iyer MD at OR [facility] [employer] PHILLIP [id number] 05/18/2024 [id number] / / [id number] Duraclip 16mm Xlg Repostn - [id number] Implanted:Qty: 1 on 03/16/2023 by Irving Iyer MD at OR [facility] [employer] [id number] 05/18/2024 [id number] / / [id number] documented as of this encounter Care Teams Order Expediter Relationship Specialty Start Date End Date Jean Claude Yao DO [address] [place] [address] PCP - General Internal Medicine 05/09/24 documented as of this encounter
--- OUTSIDE RECORDS SUMMARY | 2024-07-27 10:40 | External Medical Summary | Summary of Care ---
Author Name Unknown Organization [facility] Address [address] [place] [address] Phone [phone] Care Team Providers Care Blood And Plasma Laboratory Assistant Name Role Phone Jean Claude Yao DO Primary Care Provider [phone] Encounter Details Date Type Department Care Team (Late st Contact Info) Description 07/19/2024 Orders Only Hematology/Oncology [facility] [address] [facility] [place] [address] Abbey Aguiar MD [address] [place] [address] Multiple myeloma not having achieved remission (HCC)* Allergies No known active allergiesdocumented as of [...] Description 07/22/2024 7:50 AM EDT Laboratory Laboratory [facility] La[place] [phone] [facility] [place] [address] 07/22/2024 9:00 AM EDT Hem/Onc Treatment Hematology/Oncolog y Treatment, [place] [address] [place] [phone] Laure, Chair 6 Hem [place] [address] 07/25/2024 8:00 AM EDT Laboratory Laboratory [place] Laure [place] [address] [place] [phone] Laure Lab K[place] [address] [place] [address] [address] 07/25/2024 9:00 AM EDT Hem/Onc Treatment Hematology/Oncolog y Treatment, [place] 200 [facility], [place] [phone] Laure, Chair 3 Hem Onc Scenery [address] [place], [place] [address] 07/28/2024 8:00 AM EDT Laboratory Laboratory [facility] Laure [place] [address] [place], [place] [phone] Laure, Lab Scenery [address] [place], [place] [address] 07/28/2024 9:00 AM EDT Hem/Onc Treatment Hematology/Oncolog y Treatment, [place] 200 [facility], [place] [phone] Laure, Chair 6 Hem Onc Scenery [address] [place], [place] [address] 08/01/2024 7:20 AM EDT Laboratory Laboratory [facility] Laure [place] [address] [place], [place] [phone] Laure, Lab Scenery [address] [place], [place] [address] 08/01/2024 8:00 AM EDT Office Visit Hematology/Oncolog y Scenery Laure [place] [address] [place], [place] [phone] Abbey Aguiar MD [address] [place] [address] 08/01/2024 8:30 AM EDT Hem/Onc Treatment Hematology/Oncolog y Treatment, [place] 200 [facility], [place] [phone] Laure, Chair 5 Hem Onc Scenery [address] [place], [place] [address] 08/08/2024 9:00 AM EDT Pharmacy Pharmacy Hematology Oncology [facility] [address] [place] [address] [facility] Hem/Onc [address] [place] [address] 08/23/2024 10:00 AM EDT Office Visit Family [address] 293 [place] [address] Jean Claude Yao, DO 293 [place] [address] 09/08/2024 2:30 PM EDT Hospital Encounter ENDO OSSC, Endoscopy Room [facility] [address] [place] [phone] Irving Iyer MD [address] [place] [address] 09/08/2024 2:30 PM EDT - 09/08/2024 3:00 PM EDT Surgery ENDO OSS, Endoscopy Room [facility] [address] [place] [phone] Irving Iyer MD [address] [place] [address] COLONOSCOPY FLEXIBLE PROXIMAL DIAGNOSTIC 03/13/2025 11:00 AM EDT Office Visit Sleep Disorders Ctr [facility] [address] [place] [phone] Ruma Orellana DO [address] [place] [address] Scheduled Procedures Name Priority Associated Diagnoses Date/Ti me COLONOSCOPY FLEXIBLE PROXIMAL DIAGNOSTIC Recall History of colonic polyps 09/08/2024 2:30 PM EDT Health Maintenance Due Date Last Done Comments Cologuard 1997 Fecal Occult Blood Test 1997 Sigmoidoscopy 1997 Adult Wellness Visit 2018 COVID-19 Vaccine (3 - Moderna risk series) 04/19/2021 03/22/2021, 02/21/2021 Zoster Vaccines (2 of 2) 02/03/2023 12/09/2022, 11/2011 CKD PHOS USE SMARTSET 86238 06/15/2024 06/15/2023 Colonoscopy 06/29/2024 06/29/2023, 06/16, 03/16/2023, Additional history exists Colorectal Cancer Screening 06/29/2024 Influenza Vaccine (FLU shot) (#1) 2024 08/03/2023, 08/08/2022 HbA1c 09/29/2024 03/29/2024, 11/2022, 06/15/2023 Depression Screening 09/30/2024 09/30/2023 GFR 01/16/2025 07/19/2024, 06/17, 07/07/2024, Additional history exists Diabetic Eye Exam 01/20/2025 01/21/2024, , 05/26/2022 Diabetic Foot Exam 04/12/2025 04/12/2024, 04/12/2024 Albumin/Creatinine Ratio 05/09/2025 024, 06/15/2023, 06/03/2022 CKD HGB USE SMARTSET 65806 07/19/202507/19, 07/19/2024, 07/11/2024, Additional history exists DTap/Tdap [...] this encounter Medical Devices Implanted Type Area Upholsterer Assembly Line Device Identifier Shelf Expiration Date Model / Serial / Lot Sureclip 16mm 235cm - [id number] Implanted:Qty: 1 on 03/16/2023 by Irving Iyer MD at OR [facility] MICRO TECH ENDOSCOPY [id number] 05/19/2025 [id number] / / [id number] Duraclip 16mm Xlg Repostn - [id number] Implanted:Qty: 1 on 03/16/2023 by Irving Iyer MD at OR [facility] CONMED PHILLIP [id number] 05/18/2024 [id number] / / [id number] Duraclip 16mm Xlg Repostn - [id number] Implanted:Qty: 1 on 03/16/2023 by Irving Iyer MD at OR [facility] [employer] [id number] 05/18/2024 [id number] / / [id number] Duraclip 16mm Xlg Repostn - [id number] Implanted:Qty: 1 on 03/16/2023 by Irving Iyer MD at OR [facility] [employer] [id number] 05/18/2024 [id number] / / [id number] Duraclip 16mm Xlg Repostn - [id number] Implanted:Qty: 1 on 03/16/2023 by Irving Iyer MD at OR [facility] [employer] [id number] 05/18/2024 [id number] / / [id number] Duraclip 16mm Xlg Repostn - [id number] Implanted:Qty: 1 on 03/16/2023 by Irving Iyer MD at OR [facility] [employer] [id number] 05/18/2024 [id number] / / [id number] Duraclip 16mm Xlg Repostn - [id number] Implanted:Qty: 1 on 03/16/2023 by Irving Iyer MD at OR [facility] [employer] [id number] 05/19/2024 [id number] / / [id number] Duraclip 16mm Xlg Repostn - [id number] Implanted:Qty: 1 on 03/16/2023 by Irving Iyer MD at OR [facility] [employer] [id number] 05/19/2024 [id number] / / [id number] Duraclip 16mm Xlg Repostn - [id number] Implanted:Qty: 1 on 03/16/2023 by Irving Iyer MD at OR [facility] [employer] [id number] 05/19/2024 [id number] / / [id number] Duraclip 16mm Xlg Repostn - [id number] Implanted:Qty: 1 on 03/16/2023 by Irving Iyer MD at OR [facility] [employer] [id number] 05/18/2024 [id number] / / [id number] Duraclip 16mm Xlg Repostn - [id number] Implanted:Qty: 1 on 03/16/2023 by Irving Iyer MD at OR [facility] [employer] [id number] 05/18/2024 [id number] / / [id number] Duraclip 16mm Xlg Repostn - [id number] Implanted:Qty: 1 on 03/16/2023 by Irving Iyer MD at OR [facility] [employer] [id number] 05/18/2024 [id number] / / [id number] Duraclip 16mm Xlg Repostn - [id number] Implanted:Qty: 1 on 03/16/2023 by Irving Iyer MD at OR [facility] [employer] [id number] 05/18/2024 [id number] / / [id number] Duraclip 16mm Xlg Repostn - [id number] Implanted:Qty: 1 on 03/16/2023 by Irving Iyer MD at OR [facility] [employer] [id number] 05/18/2024 [id number] / / [id number] documented as of this encounter Visit Diagnoses Diagnosis Multiple myeloma not having achieved remission (HCC)- Primary Multiple myeloma, without mention of having achieved remission History of colonic polyps Personal history of colonic polyps documented in this encounter Care Teams Blood And Plasma Laboratory Assistant Relationship Specialty Start Date End Date Jean Claude Yao DO [address] [place] [address] PCP - General Internal Medicine 05/09/24 documented as of this encounter
--- OUTSIDE RECORDS SUMMARY | 2024-07-27 10:40 | External Medical Summary | Summary of Care ---
Author Name Unknown Organization [facility] Address [address] [place] [address] Phone [phone] Care Team Providers Care Army Officer Name Role Phone Jean Claude Yao DO Primary Care Provider [phone] Reason for Visit * Reason Comments Chemotherapy C2/D1 - Darzalex fas pro, Velcade * Episode Based Medications (Routine) - Authorized Specialty Diagnoses / Procedures Referred By Contpreston t Referred To Contact Diagnoses Multiple myeloma not having achieved remission (HCC) Encounter for antineoplastic chemotherapy Procedures MI DARATUMUMAB, HYALURONIDASE MI INJECTION, BORTEZOMIB, 0.1MG Abbey Aguiar MD 200 [facility] [place] [address] Anc Hem/Onc [facility] Laure [address] [place] [phone] Referral ID Status Reason Start Date Expiration Date V isits Requested Visits Authorized [id number] Authorized 06/03/2024 06/03/2025 999 999 Encounter Details Date Type Department Care Team (Latest Contact Info) Description 07/19/2024 9:30 AM EDT Hem/Onc Treatment Hematology/Oncolog y Treatment, [address] [phone] Laure, Chair 8 Hem Onc [address] [place] [address] Multiple myeloma not having achieved remission (HCC)*; [...] Sign Reading Time Taken Comments Blood Pressure 159/67 07/19/2024 9:32 AM EDT Pulse 62 07/19/2024 9:32 AM EDT Temperature 36.5 C (97.7 F) 07/19/2024 9:32 AM ED T Respiratory Rate 16 07/19/2024 9:32 AM EDT Oxygen Saturation 97% 07/19/2024 9:32 AM EDT Inhaled Oxygen Concentration - - Weight 95.3 kg (210 lb) 07/19/2024 9:32 AM EDT Height - - Body Mass Index 28.47 05/27/2024 9:16 AM EDT documented in this encounter Nursing Notes * Leni Sanchez RN - 07/19/2024 10:37 AM EDT Patient tolerated treatment well without any acute issues or problems. Patient left facility in stable condition and denied any further needs. * Leni Sanchez RN - 07/19/2024 9:33 AM EDT Chair 12. Pt here for Darzalex Faspro ad Velcade injections. Overall he is feeling well, no acute complaints or concerns. He is still continuing to hold his Revlimid since he last had a cold. He has not restarted yet. Chemotherapy/Immunotherapy agents: DARZALEX and VELCADE Consent for chemotherapy drug treatment complete, dated, and signed? yes, date - 2024 Treatment lab parameters met? Yes Has treatment weight changed > than 10%? No Treatment preauthorized? Yes VITALS Filed Vitals: 07/19/24 0932 BP: 159/67 Pulse: 62 Resp: 16 Temp: 36.5 C (97.7 F) TempSrc: Tympanic SpO2: 97% Weight: 95.3 kg (210 lb) Urine protein: N/A Patient education completed [...] using the heat function. PRE-TREATMENT ASSESSMENT: NEURO: fatigue:overall still fatigued but energy levels have seemed to be improving lately CV/RESP: denies symptoms GI/: constipation: baseline since before starting treatments, manages last week with stool softeners along which have helped OTHER: denies any additional symptoms PAIN: 0 documented in this encounter Plan of Treatment Upcoming Encounters Date Type Department Care Team (Latest Contact Info) Description 07/22/2024 7:50 AM EDT Laboratory Laboratory [facility] [address] [place] [phone] Laure, Lab Scenery [address] [place] [address] 07/22/2024 9:00 AM EDT Hem/Onc Treatment Hematology/Oncolog y [address], [address] [phone] Laure, Chair 6 Hem Onc [facility] [address] [place] [address] 07/25/2024 8:00 AM EDT Laboratory Laboratory [facility] [place] [address] [place] [address] Laure, Lab Scenery [address] [place] [address] 07/25/2024 9:00 AM EDT Hem/Onc Treatment Hematology/Oncolog [facility] Treatment, [place] [facility] [phone] Laure, Chair 3 Hem Onc Scenery [address] [place] [address] 07/28/2024 8:00 AM EDT Laboratory Laboratory [facility] [place] [address] [place], [place] [phone] Laure, Lab Scenery [address] [place], [place] [address] 07/28/2024 9:00 AM EDT Hem/Onc Treatment Hematology/Oncolog y [facility], [place] [address] [place], [place] [phone] Laure, Chair 6 Hem Onc Scenery [address] [place], [place] [address] 08/01/2024 7:20 AM EDT Laboratory Laboratory [facility] [place] [address] [place] [phone] Laure, Lab Scenery [address] [place], [place] [address] 08/01/2024 8:00 AM EDT Office Visit Hematology/Oncolog y Scenery Laure [place] [address] [place], [place] [phone] Abbey Aguiar MD [address] [place], [place] [address] 08/01/2024 8:30 AM EDT Hem/Onc Treatment Hematology/Oncolog y [facility], [place] [address] [facility], [place] [phone] Laure, Chair 5 Hem Onc Scen[address] [place], [place] [address] 08/23/2024 10:00 AM EDT Office Visit Family Practice [address], [place] 293 [facility] [place] [address] Jean Claude Yao DO 293 [place] [address] 09/08/2024 2:30 PM EDT Hospital Encounter ENDO OSSC, Endoscopy Room [facility] [address] [place] [address] Irving Iyer MD [address] [place] [address] 09/08/2024 2:30 PM EDT - 09/08/2024 3:00 PM EDT Surgery ENDO [facility], Endoscopy Room [facility] [address] [place] [address] Irving Iyer MD [address] [place] [address] COLONOSCOPY FLEXIBLE PROXIMAL DIAGNOSTIC 03/13/2025 11:00 AM EDT Office Visit Sleep Disorders Ctr [facility] [address] [place] [phone] Ruma Orellana DO [address] [place] [address] Scheduled Procedures Name Priority Associated Diagnoses Date/Ti me COLONOSCOPY FLEXIBLE PROXIMAL DIAGNOSTIC Recall History of colonic polyps 09/08/2024 2:30 PM EDT Health Maintenance Due Date Last Done Comments Cologuard 1997 Fecal Occult Blood Test 1997 Sigmoidoscopy 1997 Adult Wellness Visit 2018 COVID-19 Vaccine (3 - Moderna risk series) 04/19/2021 03/22/2021, 02/21/2021 Zoster Vaccines (2 of 2) 02/03/2023 12/09/2022, 1211/2011 CKD PHOS USE SMARTSET 71804 06/15/2024 06/15/2023 Colonoscopy 06/29/2024 06/29/2023, 06/16, 03/16/2023, Additional history exists Colorectal Cancer Screening 06/29/2024 Influenza Vaccine (FLU shot) (#1) 2024 08/03/2023, 08/08/2022 HbA1c 09/29/2024 03/29/2024, 11/2022, 06/15/2023 Depression Screening 09/30/2024 09/30/2023 GFR 01/16/2025 07/19/2024, 06/17, 07/07/2024, Additional history exists Diabetic Eye Exam 01/20/2025 01/21/2024, , 05/26/2022 Diabetic Foot Exam 04/12/2025 04/12/2024, 04/12/2024 Albumin/Creatinine Ratio 05/09/2025 024, 06/15/2023, 06/03/2022 CKD HGB USE SMARTSET 26990 07/19/202507/19, 07/19/2024, 07/11/2024, Additional history exists DTap/Tdap [...] this encounter Medical Devices Implanted Type Area Paper Cleaner Device Identifier Shelf Expiration Date Model / Serial / Lot Sureclip 16mm 235cm - [id number] Implanted:Qty: 1 on 03/16/2023 by Irving Iyer MD at OR [facility] MICRO TECH ENDOSCOPY [id number] 05/19/2025 [id number] / / [id number] Duraclip 16mm Xlg Repostn - [id number] Implanted:Qty: 1 on 03/16/2023 by Irving Iyer MD at OR [facility] I-frontdesk [id number] 05/18/2024 [id number] / / [id number] Duraclip 16mm Xlg Repostn - [id number] Implanted:Qty: 1 on 03/16/2023 by Irving Iyer MD at OR [facility] [employer]IP [id number] 05/18/2024 [id number] / / [id number] Duraclip 16mm Xlg Repostn - [id number] Implanted:Qty: 1 on 03/16/2023 by Irving Iyer MD at OR [facility] [employer] [id number] 05/18/2024 [id number] / / [id number] Duraclip 16mm Xlg Repostn - [id number] Implanted:Qty: 1 on 03/16/2023 by Irving Iyer MD at OR [facility] [employer] [id number] 05/18/2024 [id number] / / [id number] Duraclip 16mm Xlg Repostn - [id number] Implanted:Qty: 1 on 03/16/2023 by Irving Iyer MD at OR [facility] [employer] [id number] 05/18/2024 [id number] / / [id number] Duraclip 16mm Xlg Repostn - [id number] Implanted:Qty: 1 on 03/16/2023 by Irving Iyer MD at OR [facility] [employer] [id number] 05/19/2024 [id number] / / [id number] Duraclip 16mm Xlg Repostn - [id number] Implanted:Qty: 1 on 03/16/2023 by Irving Iyer MD at OR [facility] [employer] [id number] 05/19/2024 [id number] / / [id number] Duraclip 16mm Xlg Repostn - [id number] Implanted:Qty: 1 on 03/16/2023 by Irving Iyer MD at OR [facility] [employer] [id number] 05/19/2024 [id number] / / [id number] Duraclip 16mm Xlg Repostn - [id number] Implanted:Qty: 1 on 03/16/2023 by Irving Iyer MD at OR [facility] I-frontdesk [id number] 05/18/2024 [id number] / / [id number] Duraclip 16mm Xlg Repostn - [id number] Implanted:Qty: 1 on 03/16/2023 by Irving Iyer MD at OR [facility] I[employer]front[employer]k [id number] 05/18/2024 [id number] / / [id number] Duraclip 16mm Xlg Repostn - [id number] Implanted:Qty: 1 on 03/16/2023 by Irving Iyer MD at OR [facility] I-frontdesk [id number] 05/18/2024 [id number] / / [id number] Duraclip 16mm Xlg Repostn - [id number] Implanted:Qty: 1 on 03/16/2023 by Irving Iyer MD at OR [facility] I[employer] [id number] 05/18/2024 [id number] / / [id number] Duraclip 16mm Xlg Repostn - [id number] Implanted:Qty: 1 on 03/16/2023 by Irving Iyer MD at OR [facility] I-frontdesk [id number] 05/18/2024 [id number] / / [id number] documented as of this encounter Visit Diagnoses [...] ONCE PRN Other, Hypersensitivity Reaction, Starting on Thu07/19/24 at 0933, Until Thu07/20/24 at 0932, For 24 hours EPINEPHrine 1 MG/ML inj 0.3 mg 0.3 mg, Intramuscular, ONCE PRN Other, Hypersensitivity Reaction or Anaphylaxis, Starting on Thu07/19/24 at 0933, Until Thu07/20/24 at 0932, For 24 hours Hydrocortisone Sod Suc (PF) (Solu-Cortef) inj 100 mg 100 mg, IV Push, ONCE PRN Other, Hypersensitivity Reaction, Starting on Thu07/19/24 at 0933, Until Thu07/20/24 at 0932, For 24 hours meperidine (Demerol) 25 MG/ML inj 25 mg 25 mg, IV Push, ONCE PRN Shivering, Starting on Thu07/19/24 at 0933, Until Discontinued oxygen GAS Inhalation, OXYGEN, First dose on Thu07/19/24 at 1015, Until Discontinued, Device/Managed by: Low Flow Device, [...] 650 mg 650 mg, Oral, ONCE, On Thu07/19/24 at 1015, For 1 dose, Maximum of 4 grams (4000 mg) per day. Given 07/19/2024 9:43 AM EDT 650 mg Bortezomib (Velcade) 2.5 mg/mL subQ inj 2.75 mg 2.75 mg (rounded from 2.821 mg = 1.3 mg/m2 2.17 m2 Treatment Plan BSA from Recorded weight), Subcutaneous, ONCE, On Thu07/19/24 at 1115, For 1 dose, Administer subcutaneously in thigh or abdomen-rotate site Given 07/19/2024 10:27 AM EDT 2.75 mg Abdomen Left Lower Daratumumab-hyaluronidase- fihj (Darzalex Faspro) 1800 mg-47868 units/ 15 ml subcut inj 15 mL, Subcutaneous, ONCE, On Thu07/19/24 at 1145, For 1 dose, Inject subcutanteously into abdomen over 3 to 5 minutes Given 07/19/2024 10:28 AM EDT 15 mL Abdomen Right Lower diphenhydrAMINE (Benadryl) cap 50 mg 50 mg, Oral, ONCE, On Thu07/19/24 at 1015, For 1 dose Given 07/19/2024 9:43 AM EDT 50 mg documented in this encounter Care Teams Army Officer Relationship Specialty Start Date End Date Jean Claude Yao DO [address] [facility] [place] [address] PCP - General Internal Medicine 05/09/24 documented as of this encounter
--- OUTSIDE RECORDS SUMMARY | 2024-07-27 10:41 | External Medical Summary ---
Author Name Unknown Address Unknown Organization K09:[facility] [place] [address] Laboratory Report Ordering Provider Test Date Status CARLENE PEREZ 07/07/2024 08:01:24 Final Observation Date Value Abnormality Reference (Units ) Status BUN 07/07/2024 08:01:24 28 Above high normal 6-20 (mg/dL) Final Creatinine 07/07/2024 08:01:24 1.4 Above high normal 0.6-1.2 (mg/dL) Final Glomerular filtration rate/1.73 sq M.predicted [Volume Rate/Area] in Serum, Plasma or Blood by Creatinine-based formula (CKD-EPI) 07/07/2024 08:01:24 55 Below low normal >=60 (mL/min) Final eGFR is calculated based on the CKD-EPI 2020 equation. Sodium 07/07/2024 08:01:24 141 135-146 (m mol/L) Final Potassium 07/07/2024 08:01:24 3.9 3.5-5.1 (m mol/L) Final Cl 07/07/2024 08:01:24 105 98-107 (mm ol/L) Final CO2 07/07/2024 08:01:24 24 22-32 (mmo l/L) Final Anion gap 07/07/2024 08:01:24 12 7-15 (mmol /L) Final Glucose 07/07/2024 08:01:24 145 Above high normal 70 -120 (mg/dL) Final Albumin 07/07/2024 08:01:24 3.6 Below low normal 3.8 -5.0 (g/dL) Final AST (Aspartate aminotransferase) 07/07/2024 08:01:24 15 10-50 (U/L) Fin al Alk Phos 07/07/2024 08:01:24 83 35-130 (U/ L) Final Bilirubin, Total 07/07/2024 08:01:24 0.4 <=1 .2 (mg/dL) Final Calcium 07/07/2024 08:01:24 8.6 8.4-10.2 ( mg/dL) Final Protein 07/07/2024 08:01:24 6.7 6.0-8.3 (g /dL) Final ALT (Alanine aminotransferase) 07/07/2024 08:01:24 15 10-50 (U/L) Toby pruett Performing Location [facility] [address] [place] [address]
--- OUTSIDE RECORDS SUMMARY | 2024-07-27 10:41 | External Medical Summary | Summary of Care ---
Author Name Unknown Organization [facility] Address [address] [place] [address] Phone [phone] Care Team Providers Care Meter Technician Name Role Phone Jean Claude Yao DO Primary Care Provider [phone] Encounter Details Date Type Department Care Team (Late st Contact Info) Description 07/11/2024 Orders Only Outcomes Research Department [address] [place] [address] Amarilis Del Toro CHRA [employer] Research Other*[id number] Allergies No known active allergiesdocumented as of this encounter (statuses as of 07/11/2024) Medications Medication Sig Dispensed Refills Start Date [...] as of this encounter (statuses as of 07/11/2024) Active Problems Problem Noted Date Diagnosed Date [...] as of this encounter (statuses as of 07/11/2024) Resolved Problems Problem Noted Date Diagnosed Date Resolved Date Prediabetes 10/26/2023 12/31/2023 Overview: Per Prediabetes protocol Hypertensive kidney disease with stage 3a chronic kidney disease 07/02/2023 03/29/2024 Lesion of pancreas 12/09/2022 documented as of this encounter (statuses as of 07/11/2024) Immunizations Name Administration Dates Next Due COVID-19 [...] EDT Hem/Onc Treatment Hematology/Oncolog y Treatment, [address] [place] [phone] Laure, Chair [address] Hem On[address] [place] [address] Arrived 07/19/2024 8:30 AM EDT Laboratory Laboratory [facility] Laure [place] Jonathan Myles [place] [phone] Laure, Lab [address] [place] [address] 07/19/2024 9:00 AM EDT Pharmacy Pharmacy Hematology Oncology [facility] [address] [place] [address] [facility] Hem/Onc [address] [place] [address] 07/19/2024 9:30 AM EDT Hem/Onc Treatment Hematology/Oncolog y Treatment, [place] [address] [facility] [place] [address] Laure, Chair 8 Hem Onc Scenery [address] [place] [address] 07/22/2024 7:50 AM EDT Laboratory Laboratory [facility] [address] [place] [address] Park, Lab Scenery [address] [place] [address] 07/22/2024 9:00 AM EDT Hem/Onc Treatment Hematology/Oncolog y Treatment, [place] [address] [facility] [place] [address] Laure, Chair 6 Hem Onc Scenery [address] [place] [address] 07/25/2024 8:00 AM EDT Laboratory Laboratory [facility] [place] [address] [place] [address] Laure, Lab Scenery [address] [place] [address] 07/25/2024 9:00 AM EDT Hem/Onc Treatment Hematology/Oncolog y Treatment, [place] [address] [facility] [place] [address] Laure, Chair 3 Hem Onc Scenery [address] [place] [address] 07/28/2024 8:00 AM EDT Laboratory Laboratory [facility] [address] [place] [address] Laure, Lab Scenery [address] [place] [address] 07/28/2024 9:00 AM EDT Hem/Onc Treatment Hematology/Oncolog y Treatment, [place] [address] [place] [facility] [place] [facility] [address] Laure, Chair 6 Hem Onc Scenery [address] [place] [address] 08/01/2024 7:20 AM EDT Laboratory Laboratory [facility] [place] [address] [place], [place] [phone] Laure Lab Scenery [address] [place], [place] [address] 08/01/2024 8:00 AM EDT Office Visit Hematology/Oncolog y Scenery Laure [place] [address] [place], [place] [phone] Abbey Aguiar MD [address] [place], [place] [address] 08/01/2024 8:30 AM EDT Hem/Onc Treatment Hematology/Oncolog y [facility] [address] [place], [place] [phone] Laure, Chair 5 Hem Onc Scenery [address] [place], [place] [address] 08/23/2024 10:00 AM EDT Office Visit Family Practice [address], [place] [address] [facility] [place] [address] Jean Claude Yao DO [address] [place] [address] 09/08/2024 2:30 PM EDT Hospital Encounter ENDO [facility], Endoscopy Room [facility] [address] [place] [phone] Irving Iyer MD [address] [place] [address] 09/08/2024 2:30 PM EDT - 09/08/2024 3:00 PM EDT Surgery ENDO [facility], Endoscopy Room [facility] [address] [place] [phone] Irving Iyer MD [address] [place] [address] COLONOSCOPY FLEXIBLE PROXIMAL DIAGNOSTIC 03/13/2025 11:00 AM EDT Office Visit Sleep Disorders Ctr [facility] [address] [place] [phone] Ruma Orellana, [address] [place] [address] Scheduled Orders Name Type Priority Associated Diagnoses Orde r Schedule MYCODE SUBSEQUENT ADULT Lab Routine MyCode Research Other*[id number] Every 6 Months for 2 Occurrences starting 07/11/2024 until 07/31/2025 Scheduled Procedures Name Priority Associated Diagnoses Date/Ti me COLONOSCOPY FLEXIBLE PROXIMAL DIAGNOSTIC Recall History of colonic polyps 09/08/2024 2:30 PM EDT Health Maintenance Due Date Last Done Comments Cologuard 1997 Fecal Occult Blood Test 1997 Sigmoidoscopy 1997 Adult Wellness Visit 2018 COVID-19 Vaccine (3 - Moderna risk series) 04/19/2021 03/22/2021, 02/21/2021 Zoster Vaccines (2 of 2) 02/03/2023 12/09/2022, 1211/2011 CKD PHOS USE SMARTSET 02768 06/15/2024 06/15/2023 Colonoscopy 06/29/2024 06/29/2023, 06/16, 03/16/2023, Additional history exists Colorectal Cancer Screening 06/29/2024 Influenza Vaccine (FLU shot) (#1) 2024 08/03/2023, 08/08/2022 HbA1c 09/29/2024 03/29/2024, 12/0 11/2022, 06/15/2023 Depression Screening 09/30/2024 09/30/2023 GFR 01/11/2025 07/11/2024, 08/2 12/2023, 07/04/2024, Additional history exists Diabetic Eye Exam 01/20/2025 01/21/2024, , 05/26/2022 Diabetic Foot Exam 04/12/2025 04/12/2024, 04/12/2024 Albumin/Creatinine Ratio 05/09/2025 024, 06/15/2023, 06/03/2022 CKD HGB USE SMARTSET 72353 07/11/202507/11, 07/11/2024, 07/07/2024, Additional history exists DTaP,Tdap,and Td Vaccines (3 - Td or Tdap) 04/07/2034 [...] this encounter Medical Devices Implanted Type Area Renewable Energy Engineer Device Identifier Shelf Expiration Date Model / Serial / Lot Sureclip 16mm 235cm - [id number] Implanted:Qty: 1 on 03/16/2023 by Irving Iyer MD at [facility] [employer] ENDOSCOPY [id number] 05/19/2025 [id number] / / [id number] Duraclip 16mm Xlg Repostn - [id number] Implanted:Qty: 1 on 03/16/2023 by Irving Iyer MD at [facility] [employer]IP [id number] 05/18/2024 [id number] / / [id number] Duraclip 16mm Xlg Repostn - [id number] Implanted:Qty: 1 on 03/16/2023 by Irving Iyer MD at [facility] License[employer] PHILLIP [id number] 05/18/2024 [id number] / / [id number] Duraclip 16mm Xlg Repostn - [id number] Implanted:Qty: 1 on 03/16/2023 by Irving Iyer MD at [facility] [employer] [id number] 05/18/2024 [id number] / / [id number] Duraclip 16mm Xlg Repostn - [id number] Implanted:Qty: 1 on 03/16/2023 by Irving Iyer MD at [facility] [employer] [id number] 05/18/2024 [id number] / / [id number] Duraclip 16mm Xlg Repostn - [id number] Implanted:Qty: 1 on 03/16/2023 by Irving Iyer MD at [facility] [employer] [id number] 05/18/2024 [id number] / / [id number] Duraclip 16mm Xlg Repostn - [id number] Implanted:Qty: 1 on 03/16/2023 by Irving Iyer MD at [facility] [employer] [id number] 05/19/2024 [id number] / / [id number] Duraclip 16mm Xlg Repostn - [id number] Implanted:Qty: 1 on 03/16/2023 by Irving Iyer MD at [facility] [employer] [id number] 05/19/2024 [id number] / / [id number] Duraclip 16mm Xlg Repostn - [id number] Implanted:Qty: 1 on 03/16/2023 by Irving Iyer MD at [facility] [employer] [id number] 05/19/2024 [id number] / / [id number] Duraclip 16mm Xlg Repostn - [id number] Implanted:Qty: 1 on 03/16/2023 by Irving Iyer MD at [facility] [employer] [id number] 05/18/2024 [id number] / / [id number] Duraclip 16mm Xlg Repostn - [id number] Implanted:Qty: 1 on 03/16/2023 by Irving Iyer MD at [facility] [employer] [id number] 05/18/2024 [id number] / / [id number] Duraclip 16mm Xlg Repostn - [id number] Implanted:Qty: 1 on 03/16/2023 by Irving Iyer MD at [facility] [employer] [id number] 05/18/2024 [id number] / / [id number] Duraclip 16mm Xlg Repostn - [id number] Implanted:Qty: 1 on 03/16/2023 by Irving Iyer MD at [facility] [employer] [id number] 05/18/2024 [id number] / / [id number] Duraclip 16mm Xlg Repostn - [id number] Implanted:Qty: 1 on 03/16/2023 by Irving Iyer MD at [facility] [employer] [id number] 05/18/2024 [id number] / / [id number] documented as of this encounter Visit Diagnoses Diagnosis MyCode Research Other*[id number] History of colonic polyps Personal history of colonic polyps documented in this encounter Care Teams Meter Technician Relationship Specialty Start Date End Date Jean Claude Yao DO [address] [facility] [place] [address] PCP - General Internal Medicine 05/09/24 documented as of this encounter
--- OUTSIDE RECORDS SUMMARY | 2024-07-27 10:41 | External Medical Summary ---
Author Name Unknown Address Unknown Organization K09:[facility] [place] [address] Laboratory Report Ordering Provider Test Date Status CARLENE PEREZ 07/11/2024 07:48:48 Final Observation Date Value Abnormality Reference (Units ) Status SYNC LEUKOCYTES IN BLOOD BY AUTOMATED COUNT 07/11/2024 07:48:48 2.89 Below low normal 4.00-10.80 (K/uL) Final Segs 07/11/2024 07:48:48 58.9 40.0-75.0 (%) Final Lymphs % 07/11/2024 07:48:48 24.2 18.0-42.0 (%) Final Monos 07/11/2024 07:48:48 15.6 Above high normal 1.0-11.0 (%) Final Eosinophils 07/11/2024 07:48:48 1.0 0.0-6.0 (%) Final Basos 07/11/2024 07:48:48 0.3 0.0-2.0 (%) Final Absolute Segs 07/11/2024 07:48:48 1.70 Below low normal 1.80-7.70 (K/uL) Final Lymphs, absolute 07/11/2024 07:48:48 0.70 Below low normal 1.00-4.80 (K/ul) Final Monos, Abs 07/11/2024 07:48:48 0.45 0.00-1.10 (K/uL) Final Eos, Abs 07/11/2024 07:48:48 0.03 0.00-0.70 (K/uL) Final Basos, Abs 07/11/2024 07:48:48 0.01 0.00-0.20 (K/uL) Final Performing Location [facility] [place] [address]
--- OUTSIDE RECORDS SUMMARY | 2024-07-27 10:41 | External Medical Summary | Summary of Care ---
Author Name Unknown Organization [facility] Address [address] [place] [address] Phone [phone] Care Team Providers Care Manager Fine Dining Name Role Phone Jean Claude Yao DO Primary Care Provider [phone] Reason for Visit * Reason Comments Outpatient Testing Encounter Details Date Type Department Care Team (Late st Contact Info) Description 07/07/2024 8:00 AM EDT Laboratory Laboratory [facility] [place] [address] [place] [address] [place], Lab [facility] [address] [facility] [place] [address] Multiple myeloma not having achieved remission (HCC) Allergies No known active allergiesdocumented as of this encounter (statuses as of 07/07/2024) Medications Medication Sig Dispensed Refills Start Date [...] as of this encounter (statuses as of 07/07/2024) Active Problems Problem Noted Date Diagnosed Date [...] as of this encounter (statuses as of 07/07/2024) Resolved Problems Problem Noted Date Diagnosed Date Resolved Date Prediabetes 10/26/2023 12/31/2023 Overview: Per Prediabetes protocol Hypertensive kidney disease with stage 3a chronic kidney disease 07/02/2023 03/29/2024 Lesion of pancreas 12/09/2022 documented as of this encounter (statuses as of 07/07/2024) Immunizations Name Administration Dates Next Due COVID-19 [...] on file documented as of this encounter Miscellaneous Notes * Addendum Note - Vanessa Rahman TECH - 07/07/2024 12:58 PM EDTAddended by: VANESSA RAHMAN on: 07/07/2024 12:58 PM Modules accepted: Orders documented in this encounter Plan of Treatment Upcoming Encounters Date Type Department Care Team (Latest Contact Info) Description 07/11/2024 7:50 AM EDT Laboratory Laboratory [facility] Laure [place] [address] [place] [address] Laure, Lab Scenery [address] [facility] [place] [address] 07/11/2024 9:00 AM EDT Hem/Onc Treatment Hematology/Oncolog y Treatment, [place] [address] [place] [phone] Laure, Chair 10 Hem Onc Scenery [address] [place] [address] 07/19/2024 8:30 AM EDT Laboratory Laboratory Scenery Diana [place] [address] [place], [place] [phone] Laure, Lab Scenery [address] [place], [place] [address] 07/19/2024 9:00 AM EDT Pharmacy Pharmacy Hematology Oncology [facility] [address] [place] [address] [facility], [facility] Hem/Onc [address] [place] [address] 07/19/2024 9:30 AM EDT Hem/Onc Treatment Hematology/Oncolog y Treatment, [place] [address] [facility], [place] [phone] Laure, Chair 8 Hem Onc Scenery [address] [place], [place] [address] 07/22/2024 7:50 AM EDT Laboratory Laboratory [facility] Laure [place] [address] [place], [place] [phone] Laure, Lab Sc[address]ery [address] [place], [place] [address] 07/22/2024 9:00 AM EDT Hem/Onc Treatment Hematology/Oncolog y Treatment, [place] [address] [facility], [place] [phone] Laure, Chair 6 Hem Onc Scenery [address] [place] [address] 07/25/2024 8:00 AM EDT Laboratory [facility] [place] [address] [place], [place] [phone] Laure, Lab Scenery [address] [place], [place] [address] 07/25/2024 9:00 AM EDT Hem/Onc Treatment Hematology/Oncolog y Treatment, [place] [address] [place] [address] Laure, Chair 3 Hem Onc Scenery [address] [place] [address] 07/28/2024 8:00 AM EDT Laboratory Laboratory [facility] [place] [address] [place] [address] Laure, Lab Scenery [address] [place] [address] 07/28/2024 9:00 AM EDT Hem/Onc Treatment Hematology/Oncolog y Treatment, [place] [address] [place] [address] Laure, Chair 6 Hem Onc Scenery [address] [place], [place] [address] 08/01/2024 7:20 AM EDT Laboratory Laboratory [facility] [place] [address] [place], [place] [phone] Laure, Lab Scenery [address] [place] [address] 08/01/2024 8:00 AM EDT Office Visit Hematology/Oncolog y Scenery Diana [place] [address] [place], [place] [address] Abbey Aguiar MD [address] [place], [place] [address] 08/01/2024 8:30 AM EDT Hem/Onc Treatment Hematology/Oncolog y [facility], [place] [address] [place] [phone] Laure, Chair 5 Hem Onc Scenery [address] [place] [address] 08/23/2024 10:00 AM EDT Office Visit Family Practice [address] [facility], [place] [address] [facility] [place] [phone] Jean Claude Yao, [address] [place] [address] 09/08/2024 2:30 PM EDT Hospital Encounter ENDO [facility], Endoscopy Room [facility] [address] [place] [phone] Irving Iyer MD [address] [place] [address] 09/08/2024 2:30 PM EDT - 09/08/2024 3:00 PM EDT Surgery ENDO [facility], Endoscopy Room [facility] [address] [place] [phone] Irving Iyer MD [address] [place] [address] COLONOSCOPY FLEXIBLE PROXIMAL DIAGNOSTIC 03/13/2025 11:00 AM EDT Office Visit Sleep Disorders Ctr [facility] [address] [place] [phone] Ruma Orellana DO [address] [place] [address] Scheduled Orders Name Type Priority Associated Diagnoses Orde r Schedule EXTRA TUBES Lab Routine Ordered: 06/17 EXTRA GOLD TOP Lab Routine Ordered: 0 07/07/2024 Scheduled Procedures Name Priority Associated Diagnoses Date/Ti [...] 12/09/2022, 12/0 11/2011 CKD PHOS USE SMARTSET 25758 06/15/2024 06/15/2023 Colonoscopy 06/29/2024 06/29/2023, 06/16, 03/16/2023, Additional history exists Colorectal Cancer Screening 06/29/2024 Influenza Vaccine (FLU shot) (#1) 2024 08/03/2023, 08/08/2022 HbA1c 09/29/2024 03/29/2024, 1211/2022, 06/15/2023 Depression Screening 09/30/2024 09/30/2023 GFR 01/07/2025 07/07/2024, 06/16, 06/29/2024, Additional history exists Diabetic Eye Exam 01/20/2025 01/21/2024, , 05/26/2022 Diabetic Foot Exam 04/12/2025 04/12/2024, 04/12/2024 Albumin/Creatinine Ratio 05/09/2025 024, 06/15/2023, 06/03/2022 CKD HGB USE SMARTSET 49887 07/07/202507/07, 07/07/2024, 07/04/2024, Additional history exists DTaP,Tdap,and Td Vaccines (3 [...] this encounter Medical Devices Implanted Type Area Bioassayist Device Identifier Shelf Expiration Date Model / Serial / Lot Sureclip 16mm 235cm - [id number] Implanted:Qty: 1 on 03/16/2023 by Irving Iyer MD at OR [facility] MICRO TECH ENDOSCOPY [id number] 05/19/2025 [id number] / / [id number] Duraclip 16mm Xlg Repostn - [id number] Implanted:Qty: 1 on 03/16/2023 by Irving Iyer MD at OR [facility] [employer] [id number] 05/18/2024 [id number] / / [id number] Duraclip 16mm Xlg Repostn - [id number] Implanted:Qty: 1 on 03/16/2023 by Irving Iyer MD at OR [facility] [employer] [id number] 05/18/2024 [id number] / / [id number] Duraclip 16mm Xlg Repostn - [id number] Implanted:Qty: 1 on 03/16/2023 by Irving Iyer MD at OR [facility] [employer] [id number] 05/18/2024 [id number] / / [id number] Duraclip 16mm Xlg Repostn - [id number] Implanted:Qty: 1 on 03/16/2023 by Irving Iyer MD at OR [facility] [employer] [id number] 05/18/2024 [id number] / / [id number] Duraclip 16mm Xlg Repostn - [id number] Implanted:Qty: 1 on 03/16/2023 by Irving Iyer MD at OR [facility] [employer] [id number] 05/18/2024 [id number] / / [id number] Duraclip 16mm Xlg Repostn - [id number] Implanted:Qty: 1 on 03/16/2023 by Irving Iyer MD at OR [facility] [employer] [id number] 05/19/2024 [id number] / / [id number] Duraclip 16mm Xlg Repostn - [id number] Implanted:Qty: 1 on 03/16/2023 by Irving Iyer MD at OR [facility] [employer] [id number] 05/19/2024 [id number] / / [id number] Duraclip 16mm Xlg Repostn - [id number] Implanted:Qty: 1 on 03/16/2023 by Irving Iyer MD at OR [facility] [employer] [id number] 05/19/2024 [id number] / / [id number] Duraclip 16mm Xlg Repostn - [id number] Implanted:Qty: 1 on 03/16/2023 by Irving Iyer MD at OR [facility] [employer] [id number] 05/18/2024 [id number] / / [id number] Duraclip 16mm Xlg Repostn - [id number] Implanted:Qty: 1 on 03/16/2023 by Irving Iyer MD at OR [facility] [employer] [id number] 05/18/2024 [id number] / / [id number] Duraclip 16mm Xlg Repostn - [id number] Implanted:Qty: 1 on 03/16/2023 by Irving Iyer MD at OR [facility] [employer] [id number] 05/18/2024 [id number] / / [id number] Duraclip 16mm Xlg Repostn - [id number] Implanted:Qty: 1 on 03/16/2023 by Irving Iyer MD at OR [facility] [employer] [id number] 05/18/2024 [id number] / / [id number] Duraclip 16mm Xlg Repostn - [id number] Implanted:Qty: 1 on 03/16/2023 by Irving Iyer MD at OR [facility] [employer] [id number] 05/18/2024 [id number] / / [id number] documented as of this encounter Procedures Procedure Name Priority Date/Time Associated Diagnosis Comments DIFFERENTIAL, AUTOMATED STAT 07/07/2024 8:01 AM EDT Multiple myeloma not having achieved remission (HCC) COMPREHENSIVE METABOLIC PANEL STAT 07/07/2024 8:01 AM EDT Multiple myeloma not having achieved remission (HCC) CBC STAT 07/07/2024 8:01 AM EDT Multiple myeloma not having achieved remission (HCC) CBC STAT 07/07/2024 8:01 AM EDT Multiple myeloma not having achieved remission (HCC) documented in this encounter Results * (ABNORMAL) DIFFERENTIAL, AUTOMATED (07/07/2024 8:01 AM EDT) Pathologist [facility] WBC 5.10 4.00 - 10.80 K/uL 07/07/2024 8:11 AM EDT [facility] [place] 56-02 Neutrophils % 53.7 40.0 - 75.0 % 07/07/2024 8:11 AM EDT [facility] [place] 56-02 Lymphocytes % 30.4 18.0 - 42.0 % 07/07/2024 8:11 AM EDT [facility] [place] 56-02 Monocytes % 15.5(H) 1.0 - 11.0 % 07/07/2024 8:11 AM EDT LABORATORY [facility] 56-02 Eosinophils % 0.2 0.0 - 6.0 % 07/07/2024 8:11 AM EDT LABORATORY [facility] 56-02 Basophils % 0.2 0.0 - 2.0 % 07/07/2024 8:11 AM EDT [facility] [place] 56-02 Absolute Neutrophils 2.74 1.80 - 7.70 K/uL 07/07/2024 8:11 AM EDT [facility] [place] 56-02 Absolute Lymphocytes 1.55 1.00 - 4.80 K/ul 07/07/2024 8:11 AM EDT [facility] [place] 56-02 Absolute Monocytes 0.79 0.00 - 1.10 K/uL 07/07/2024 8:11 AM EDT [facility] [place] 56-02 Absolute Eosinophils 0.01 0.00 - 0.70 K/uL 07/07/2024 8:11 AM EDT [facility] 56-02 Absolute Basophils 0.01 0.00 - 0.20 K/uL 07/07/2024 8:11 AM EDT [facility] [place] 56-02 Blood Venous blood specimen / Unknown Venipuncture / Unknown 07/07/2024 8:01 AM EDT 07/07/2024 8:01 AM EDT Abbey Aguiar MD LAB BLOOD ORDERA BLES [facility] [address] [place] [address] * (ABNORMAL) CBC (07/07/2024 8:01 AM EDT) Pathologist [facility] WBC 5.10 4.00 - 10.80 K/uL 07/07/2024 8:11 AM EDT [address] RBC 2.81 4.50 - 5.25 M/uL 07/07/2024 8:11 AM EDT [address] HGB 9.7(L) 14.0 - 16.8 g/dL 07/07/2024 8:11 AM EDT [address] HCT 29.9(L) 40.0 - 48.4 % 07/07/2024 8:11 AM EDT [facility] 56 MCV 106.4 82.0 - 99.5 fL 07/07/2024 8:11 AM EDT [facility] 56 MCH 34.5 27.0 - 34.0 pg 07/07/2024 8:11 AM EDT [facility] 56 MCHC 32.4 32.0 - 36.0 g/dL 07/07/2024 8:11 AM EDT [facility] 56 RDW 14.9 11.5 - 15.5 % 07/07/2024 8:11 AM EDT [facility] 56 PLT 125(L) 140 - 400 K/uL 07/07/2024 8:11 AM EDT [facility] 56 MPV 8.9 6.6 - 11.1 fL 07/07/2024 8:11 AM EDT [facility] 56 Blood Venous blood specimen / Unknown Venipuncture / Unknown 07/07/2024 8:01 AM EDT 07/07/2024 8:01 AM EDT Abbey Aguiar MD LAB BLOOD ORDERA BLES [facility] [address] [place] [address] * (ABNORMAL) COMPREHENSIVE METABOLIC PANEL (07/07/2024 8:01 AM EDT) BUN 28(H) 6 - 20 mg/dL 07/07/2024 8:55 AM EDT [facility] 56 Creatinine 1.4(H) 0.6 - 1.2 mg/dL 07/07/2024 8:55 AM EDT [facility] 56 Estimated Glomerular Filtration Rate 55(L) >=60 mL/min 07/07/2024 8:55 AM T [facility] 56 Comment:eGFR is calculated b ased on the CKD-EPI 2020 equation. Sodium 141 135 - 146 mmol/L 07/07/2024 8:55 AM T [facility] 56 Potassium 3.9 3.5 - 5.1 mmol/L 07/07/2024 8:55 AM T [facility] 56 Chloride 105 98 - 107 mmol/L 07/07/2024 8:55 AM T [facility] 56 CO2 24 22 - 32 mmol/L 07/07/2024 8:55 AM T [facility] 56 Anion Gap 12 7 - 15 mmol/L 07/07/2024 8:55 AM [facility] 56 Glucose 145(H) 70 - 120 mg/dL 07/07/2024 8:55 AM T [facility] 56 Albumin 3.6(L) 3.8 - 5.0 g/dL 07/07/2024 8:55 AM T [facility] 56 AST 15 10 - 50 U/L 07/07/2024 8:55 AM T [facility] 56 Alkaline Phosphatase 83 35 - 130 U/L 07/07/2024 8:55 AM [facility] 56 Bilirubin, Total 0.4 <=1.2 mg/dL 07/07/2024 8:55 AM T [facility] 56 Calcium 8.6 8.4 - 10.2 mg/dL 07/07/2024 8:55 AM EDT [facility] 56 Protein 6.7 6.0 - 8.3 g/dL 07/07/2024 8:55 AM EDT [facility] 56 ALT 15 10 - 50 U/L 07/07/2024 8:55 AM EDT [facility] 56 Blood Venous blood specimen / Unknown Venipuncture / Unknown 07/07/2024 8:01 AM EDT 07/07/2024 8:01 AM EDT Abbey Aguiar MD LAB BLOOD ORDERA BLES [facility] [address] [place] [address] documented in this encounter Visit Diagnoses Diagnosis Multiple myeloma not having achieved remission (HCC) Multiple myeloma, without mention of having achieved remission History of colonic polyps Personal history of colonic polyps documented in this encounter Care Teams Manager Fine Dining Relationship Specialty Start Date End Date Jean Claude Yao DO [address] [place] [address] PCP - General Internal Medicine 05/09/24 documented as of this encounter
--- OUTSIDE RECORDS SUMMARY | 2024-07-27 10:41 | External Medical Summary ---
Author Name Unknown Address Unknown Organization K09:[facility] [place] [address] [place] [address] Laboratory Report Ordering Provider Test Date Status CARLENE PEREZ 07/11/2024 07:48:48 Final Observation Date Value Abnormality Reference (Units ) Status BUN 07/11/2024 07:48:48 20 6-20 (mg/dL) Final Creatinine 07/11/2024 07:48:48 1.4 Above high normal 0.6-1.2 (mg/dL) Final Glomerular filtration rate/1.73 sq M.predicted [Volume Rate/Area] in Serum, Plasma or Blood by Creatinine-based formula (CKD-EPI) 07/11/2024 07:48:48 52 Below low normal >=60 (mL/min) Final eGFR is calculated based on the CKD-EPI 2020 equation. Sodium 07/11/2024 07:48:48 139 135-146 (m mol/L) Final Potassium 07/11/2024 07:48:48 4.3 3.5-5.1 (m mol/L) Final Cl 07/11/2024 07:48:48 105 98-107 (mm ol/L) Final CO2 07/11/2024 07:48:48 26 22-32 (mmo l/L) Final Anion gap 07/11/2024 07:48:48 8 7-15 (mmol /L) Final Glucose 07/11/2024 07:48:48 142 Above high normal 70 -120 (mg/dL) Final Albumin 07/11/2024 07:48:48 3.5 Below low normal 3.8 -5.0 (g/dL) Final AST (Aspartate aminotransferase) 07/11/2024 07:48:48 16 10-50 (U/L) Fin al Alk Phos 07/11/2024 07:48:48 87 35-130 (U/ L) Final Bilirubin, Total 07/11/2024 07:48:48 0.5 <=1 .2 (mg/dL) Final Calcium 07/11/2024 07:48:48 9.0 8.4-10.2 ( mg/dL) Final Protein 07/11/2024 07:48:48 6.7 6.0-8.3 (g /dL) Final ALT (Alanine aminotransferase) 07/11/2024 07:48:48 15 10-50 (U/L) Toby pruett Performing Location [facility] [place] [address] [place] [address]
--- OUTSIDE RECORDS SUMMARY | 2024-07-27 10:41 | External Medical Summary | Summary of Care ---
Author Name Unknown Organization [facility] Address [address] [place] [address] Phone [phone] Care Team Providers Care Systems Software Developer Name Role Phone Jean Claude Yao DO Primary Care Provider [phone] Reason for Visit * Reason Comments Chemotherapy C1D15 Darzalex Faspr o/ Velcade * Episode Based Medications (Routine) - Authorized Specialty Diagnoses / Procedures Referred By Felicita t Referred To Contact Diagnoses Multiple myeloma not having achieved remission (HCC) Encounter for antineoplastic chemotherapy Procedures TX DARATUMUMAB, HYALURONIDASE TX INJECTION, BORTEZOMIB, 0.1MG Abbey Aguiar MD 200 [facility] [place] [address] Anc Hem/Onc [facility] Laure [address] [place] [phone] Referral ID Status Reason Start Date Expiration Date V isits Requested Visits Authorized [id number] Authorized 06/03/2024 06/03/2025 999 999 Encounter Details Date Type Department Care Team (Latest Contact Info) Description 07/11/2024 9:00 AM EDT Hem/Onc Treatment Hematology/Oncolog y Treatment, [address] [phone] Laure, Chair 10 Hem On[address] [place] [address] Multiple myeloma not having achieved remission (HCC)*; [...] 8:30 AM EDT Laboratory Laboratory Kelli Kelsey [place] [address] [phone] Laure, Lab [place] [address] [place] [address] [address] 07/19/2024 9:00 AM EDT Pharmacy Pharmacy Hematology Oncology [place] [address] [place] [address] [facility], [facility] Hem/Onc [facility] [place] [address] 07/19/2024 9:30 AM EDT Hem/Onc Treatment Hematology/Oncolog y Treatment, [place] 200 [facility] [place] [phone] Laure, Chair 8 Hem Onc Scenery [address] [place] [address] [address] 07/22/2024 7:50 AM EDT Laboratory Laboratory [place] Laure [place] [address] [phone] Laure, Lab [place] [address] [place] [address] 07/22/2024 9:00 AM EDT Hem/Onc Treatment Hematology/Oncolog y Treatment, [place] 200 [facility] [place] [phone] Laure, Chair 6 Hem Onc Scenery [address] [place] [address] 07/25/2024 8:00 AM EDT Laboratory Laboratory [facility] [address] [place], [place] [address] [place], Lab Scenery [address] [place] [address] 07/25/2024 9:00 AM EDT Hem/Onc Treatment Hematology/Oncolog y Treatment, [place] 200 [place] [address] Laure, Chair 3 Hem Onc Scenery [address] [place], [place] [address] 07/28/2024 8:00 AM EDT Laboratory Laboratory [facility] [address] [place], [place] [phone] Laure, Lab Scenery [address] [place] [address] 07/28/2024 9:00 AM EDT Hem/Onc Treatment Hematology/Oncolog y Treatment, [place] 200 [place] [address] Laure, Chair 6 Hem Onc Scenery [address] [place] [address] 08/01/2024 7:20 AM EDT Laboratory Laboratory [facility] [place] [address] [place] [address] Laure, Lab Scenery [address] [place] [address] 08/01/2024 8:00 AM EDT Office Visit Hematology/Oncolog y Scenery [place] [address] [place], [place] [phone] Abbey Aguiar MD [address] [place] [address] 08/01/2024 8:30 AM EDT Hem/Onc Treatment Hematology/Oncolog y Treatment, [place] [address] [place] [phone] [place], Chair 5 Hem Onc Scenery [address] [place] [address] 08/23/2024 10:00 AM EDT Office Visit Family Practice 65 [facility], [place] 293 [place] [address] Jean Claude Yao, 293 [facility] [place] [address] 09/08/2024 2:30 PM EDT Hospital Encounter ENDO OSS[facility], Endoscopy Room [facility] [address] [place] [phone] Irving Iyer MD [address] [place] [address] 09/08/2024 2:30 PM EDT - 09/08/2024 3:00 PM EDT Surgery ENDO OSS, Endoscopy Room [facility] [address] [place] [phone] Irving Iyer MD [address] [place] [address] COLONOSCOPY FLEXIBLE PROXIMAL DIAGNOSTIC 03/13/2025 11:00 AM EDT Office Visit Sleep Disorders Ctr [facility] [address] [place] [phone] Ruma Orellana DO [address] [place] [address] Scheduled Procedures Name Priority Associated Diagnoses Date/Ti me COLONOSCOPY FLEXIBLE PROXIMAL DIAGNOSTIC Recall History of colonic polyps 09/08/2024 2:30 PM EDT Health Maintenance Due Date Last Done Comments Cologuard 1997 Fecal Occult Blood Test 1997 Sigmoidoscopy 1997 Adult Wellness Visit 2018 COVID-19 Vaccine (3 - Moderna risk series) 04/19/2021 03/22/2021, 02/21/2021 Zoster Vaccines (2 of 2) 02/03/2023 12/09/2022, 12/11/2011 CKD PHOS USE SMARTSET 77465 06/15/2024 06/15/2023 Colonoscopy 06/29/2024 06/29/2023, 06/16, 03/16/2023, Additional history exists Colorectal Cancer Screening 06/29/2024 Influenza Vaccine (FLU shot) (#1) 2024 08/03/2023, 08/08/2022 HbA1c 09/29/2024 03/29/2024, 11/2022, 06/15/2023 Depression Screening 09/30/2024 09/30/2023 GFR 01/11/2025 07/11/2024, 06/17, 07/04/2024, Additional history exists Diabetic Eye Exam 01/20/2025 01/21/2024, , 05/26/2022 Diabetic Foot Exam 04/12/2025 04/12/2024, 04/12/2024 Albumin/Creatinine Ratio 05/09/2025 024, 06/15/2023, 06/03/2022 CKD HGB USE SMARTSET 70186 07/11/202507/11, 07/11/2024, 07/07/2024, Additional history exists DTaP,Tdap,and [...] this encounter Medical Devices Implanted Type Area Hand Twister Device Identifier Shelf Expiration Date Model / Serial / Lot Sureclip 16mm 235cm - [id number] Implanted:Qty: 1 on 03/16/2023 by Irving Iyer MD at OR [facility] MICRO TECH ENDOSCOPY [id number] 05/19/2025 [id number] / / [id number] Duraclip 16mm Xlg Repostn - [id number] Implanted:Qty: 1 on 03/16/2023 by Irving Iyer MD at OR [facility] [employer] [id number] 05/18/2024 [id number] / / [id number] Duraclip 16mm Xlg Repostn - [id number] Implanted:Qty: 1 on 03/16/2023 by Irving Iyer MD at OR [facility] [employer] [id number] 05/18/2024 [id number] / / [id number] Duraclip 16mm Xlg Repostn - [id number] Implanted:Qty: 1 on 03/16/2023 by Irving Iyer MD at OR [facility] [employer] [id number] 05/18/2024 [id number] / / [id number] Duraclip 16mm Xlg Repostn - [id number] Implanted:Qty: 1 on 03/16/2023 by Irving Iyer MD at OR [facility] [employer] [id number] 05/18/2024 [id number] / / [id number] Duraclip 16mm Xlg Repostn - [id number] Implanted:Qty: 1 on 03/16/2023 by Irving Iyer MD at OR [facility] [employer] [id number] 05/18/2024 [id number] / / [id number] Duraclip 16mm Xlg Repostn - [id number] Implanted:Qty: 1 on 03/16/2023 by Irving Iyer MD at OR [facility] [employer] [id number] 05/19/2024 [id number] / / [id number] Duraclip 16mm Xlg Repostn - [id number] Implanted:Qty: 1 on 03/16/2023 by Irving Iyer MD at OR [facility] [employer] [id number] 05/19/2024 [id number] / / [id number] Duraclip 16mm Xlg Repostn - [id number] Implanted:Qty: 1 on 03/16/2023 by Irving Iyer MD at OR [facility] [employer] [id number] 05/19/2024 [id number] / / [id number] Duraclip 16mm Xlg Repostn - [id number] Implanted:Qty: 1 on 03/16/2023 by Irving Iyer MD at OR [facility] [employer] [id number] 05/18/2024 [id number] / / [id number] Duraclip 16mm Xlg Repostn - [id number] Implanted:Qty: 1 on 03/16/2023 by Irving Iyer MD at OR [facility] [employer] [id number] 05/18/2024 [id number] / / [id number] Duraclip 16mm Xlg Repostn - [id number] Implanted:Qty: 1 on 03/16/2023 by Irving Iyer MD at OR [facility] [employer] [id number] 05/18/2024 [id number] / / [id number] Duraclip 16mm Xlg Repostn - [id number] Implanted:Qty: 1 on 03/16/2023 by Irving Iyer MD at OR [facility] [employer] [id number] 05/18/2024 [id number] / / [id number] Duraclip 16mm Xlg Repostn - [id number] Implanted:Qty: 1 on 03/16/2023 by Irving Iyer MD at OR [facility] [employer] [id number] 05/18/2024 [id number] / / [id number] documented as of this encounter Visit Diagnoses [...] ONCE PRN Other, Hypersensitivity Reaction, Starting on Thu07/11/24 at 0930, Until Thu07/12/24 at 0929, For 24 hours EPINEPHrine 1 MG/ML inj 0.3 mg 0.3 mg, Intramuscular, ONCE PRN Other, Hypersensitivity Reaction or Anaphylaxis, Starting on Thu07/11/24 at 0930, Until Thu07/12/24 at 0929, For 24 hours Hydrocortisone Sod Suc (PF) (Solu-Cortef) inj 100 mg 100 mg, IV Push, ONCE PRN Other, Hypersensitivity Reaction, Starting on Thu07/11/24 at 0930, Until Thu07/12/24 at 0929, For 24 hours meperidine (Demerol) 25 MG/ML inj 25 mg 25 mg, IV Push, ONCE PRN Shivering, Starting on Thu07/11/24 at 0930, Until Discontinued oxygen GAS Inhalation, OXYGEN, First dose on Thu07/11/24 at 1015, Until Discontinued, Device/Managed by: Low [...] 650 mg 650 mg, Oral, ONCE, On Thu07/11/24 at 1030, For 1 dose, Maximum of 4 grams (4000 mg) per day. Given 07/11/2024 9:58 AM EDT 650 mg Iuvfoixluad-farvrmohrhicr-i ihj (Darzalex Faspro) 1800 mg-93059 units/ 15 ml subcut inj 15 mL, [...] mg documented in this encounter Care Teams Systems Software Developer Relationship Specialty Start Date End Date Jean Claude Yao DO 293 [facility] [place] [address] PCP - General Internal Medicine 05/09/24 documented as of this encounter
--- OUTSIDE RECORDS SUMMARY | 2024-07-27 10:41 | External Medical Summary | Summary of Care ---
Author Name Unknown Organization [facility] Address [address] [place] [address] Phone [phone] Care Team Providers Care Chassis Inspector Name Role Phone Jean Claude Yao DO Primary Care Provider [phone] Reason for Visit * Reason Comments Outpatient Testing Encounter Details Date Type Department Care Team (Late st Contact Info) Description 07/07/2024 8:00 AM EDT Laboratory Laboratory [facility] [place] [address] [place] [address] [place], Lab [facility] [address] [facility] [place] [address] Multiple myeloma not having achieved remission (HCC) [...] EDT Hem/Onc Treatment Hematology/Oncolog y Treatment, [address] [phone] Laure, Chair 6 Hem Onc [place] [address] [address]elli [address] [place] [address] Arrived 07/11/2024 7:50 AM EDT Laboratory Laboratory [facility] [place]ure [place] [address] Kelli [place] [phone] Laure, Lab [facility] [address] Kelli [address] [place] [address] 07/11/2024 9:00 AM EDT Hem/Onc Treatment Hematology/Oncolog y Treatment, [place] 200 [facility] [place] [phone] Laure, Chair 10 Hem Onc [facility] [address] Kelli [place] [place] [address] 07/19/2024 8:30 AM EDT Laboratory Laboratory [place] Laure [place] [address] [place], [place] [phone] Laure, Lab Scenery [address] [place] [address] 07/19/2024 9:00 AM EDT Pharmacy Pharmacy Hematology Oncology [place] [address] [place] [address] [facility], [facility] Hem/Onc [address] [place] [address] 07/19/2024 9:30 AM EDT Hem/Onc Treatment Hematology/Oncolog y Treatment, [place] 200 [facility], [place] [address] Laure, Chair 8 Hem Onc Scenery [address] [place], [place] [address] 07/22/2024 7:50 AM EDT Laboratory Laboratory [place] [address] [place], [place] [address] Laure, Lab Scenery [address] [place] [address] 07/22/2024 9:00 AM EDT Hem/Onc Treatment Hematology/Oncolog y Treatment, [place] 200 [facility], [place] [address] Laure, Chair 6 Hem Onc Scenery [address] [place] [address] 07/25/2024 8:00 AM EDT Laboratory Laboratory [facility] [place] [address] [place] [address] Laure, Lab Scenery [address] [place] [address] 07/25/2024 9:00 AM EDT Hem/Onc Treatment Hematology/Oncolog y Treatment, [address] [place] [phone] Laure, Chair 3 Hem Onc Scenery [address] [place], [place] [address] 07/28/2024 8:00 AM EDT Laboratory Laboratory [facility] [address] [place], [place] [address] Laure, Lab Scenery [address] [place] [address] 07/28/2024 9:00 AM EDT Hem/Onc Treatment Hematology/Oncolog y Treatment, [place] 200 [place] [address] Laure, Chair 6 Hem Onc Scenery [address] [place], [place] [address] 08/01/2024 7:20 AM EDT Laboratory Laboratory [facility] [place] [address] [place], [place] [phone] Laure, Lab Scenery [address] [place] [address] 08/01/2024 8:00 AM EDT Office Visit Hematology/Oncolog y [facility] [place] [address] [place], [place] [address] Abbey Aguiar MD [address] [place], [place] [address] 08/01/2024 8:30 AM EDT Hem/Onc Treatment Hematology/Oncolog y Treatment, [place] 200 [place] [phone] Laure, Chair 5 Hem Onc Scenery [address] [place] [address] 08/23/2024 10:00 AM EDT Office Visit Family Practice [address], [place] [address] [facility] [place] [phone] Jean Claude Yao, DO [address] [facility] [place] [address] 09/08/2024 2:30 PM EDT Hospital Encounter ENDO [facility], Endoscopy Room [facility] [address] [place] [phone] Irving Iyer MD [address] [place] [address] 09/08/2024 2:30 PM EDT - 09/08/2024 3:00 PM EDT Surgery ENDO [facility], Endoscopy Room [facility] [address] [place] [phone] Irving Iyer MD [address] [place] [address] COLONOSCOPY FLEXIBLE PROXIMAL DIAGNOSTIC 03/13/2025 11:00 AM EDT Office Visit Sleep Disorders Ctr [facility] [address] [place] [phone] Ruma Orellana DO [address] [place] [address] Pending Results Name Type Priority Associated Diagnoses Date /Time COMPREHENSIVE METABOLIC PANEL Lab STAT Multiple myeloma not having achieved remission (HCC) 07/07/2024 8:01 AM EDT SERUM FREE LIGHT CHAINS Lab STAT Multiple myeloma not having achieved remission (HCC) 07/07/2024 8:01 AM EDT SERUM PROTEIN ELECTROPHORESIS REFLEX PROFILE Lab STAT Multiple myeloma not having achieved remission (HCC) 07/07/2024 8:01 AM EDT IMMUNOGLOBULIN QUANTITATIVE Lab STAT Multiple myeloma not having achieved remission (HCC) 07/07/2024 8:01 AM EDT Scheduled Procedures Name Priority Associated [...] 02/03/2023 12/09/2022, 11/2011 CKD PHOS USE SMARTSET 54123 06/15/2024 06/15/2023 Colonoscopy 06/29/2024 06/29/2023, 06/16, 03/16/2023, Additional history exists Colorectal Cancer Screening 06/29/2024 Influenza Vaccine (FLU shot) (#1) 2024 08/03/2023, 08/08/2022 HbA1c 09/29/2024 03/29/2024, 11/2022, 06/15/2023 Depression Screening 09/30/2024 09/30/2023 GFR 01/04/2025 07/04/2024, 06/16, 06/27/2024, Additional history exists Diabetic Eye Exam 01/20/2025 01/21/2024, , 05/26/2022 Diabetic Foot Exam 04/12/2025 04/12/2024, 04/12/2024 Albumin/Creatinine Ratio 05/09/2025 024, 06/15/2023, 06/03/2022 CKD HGB USE SMARTSET 31548 07/07/202507/07, 07/07/2024, 07/04/2024, Additional history exists DTaP,Tdap,and [...] this encounter Medical Devices Implanted Type Area Ceramics Instructor Device Identifier Shelf Expiration Date Model / Serial / Lot Sureclip 16mm 235cm - [id number] Implanted:Qty: 1 on 03/16/2023 by Irving Iyer MD at OR [facility] MICRO TECH ENDOSCOPY [id number] 05/19/2025 [id number] / / [id number] Duraclip 16mm Xlg Repostn - [id number] Implanted:Qty: 1 on 03/16/2023 by Irving Iyer MD at OR [facility] [employer] [id number] 05/18/2024 [id number] / / [id number] Duraclip 16mm Xlg Repostn - [id number] Implanted:Qty: 1 on 03/16/2023 by Irving Iyer MD at OR [facility] [employer] [id number] 05/18/2024 [id number] / / [id number] Duraclip 16mm Xlg Repostn - [id number] Implanted:Qty: 1 on 03/16/2023 by Irving Iyer MD at OR [facility] [employer] [id number] 05/18/2024 [id number] / / [id number] Duraclip 16mm Xlg Repostn - [id number] Implanted:Qty: 1 on 03/16/2023 by Irving Iyer MD at OR [facility] [employer] [id number] 05/18/2024 [id number] / / [id number] Duraclip 16mm Xlg Repostn - [id number] Implanted:Qty: 1 on 03/16/2023 by Irving Iyer MD at OR [facility] [employer] [id number] 05/18/2024 [id number] / / [id number] Duraclip 16mm Xlg Repostn - [id number] Implanted:Qty: 1 on 03/16/2023 by Irving Iyer MD at OR [facility] [employer] [id number] 05/19/2024 [id number] / / [id number] Duraclip 16mm Xlg Repostn - [id number] Implanted:Qty: 1 on 03/16/2023 by Irving Iyer MD at OR [facility] [employer] [id number] 05/19/2024 [id number] / / [id number] Duraclip 16mm Xlg Repostn - [id number] Implanted:Qty: 1 on 03/16/2023 by Irving Iyer MD at OR [facility] [employer] [id number] 05/19/2024 [id number] / / [id number] Duraclip 16mm Xlg Repostn - [id number] Implanted:Qty: 1 on 03/16/2023 by Irving Iyer MD at OR [facility] [employer] [id number] 05/18/2024 [id number] / / [id number] Duraclip 16mm Xlg Repostn - [id number] Implanted:Qty: 1 on 03/16/2023 by Irving Iyer MD at OR [facility] [employer] [id number] 05/18/2024 [id number] / / [id number] Duraclip 16mm Xlg Repostn - [id number] Implanted:Qty: 1 on 03/16/2023 by Irving Iyer MD at OR [facility] [employer] [id number] 05/18/2024 [id number] / / [id number] Duraclip 16mm Xlg Repostn - [id number] Implanted:Qty: 1 on 03/16/2023 by Irving Iyer MD at OR [facility] [employer] [id number] 05/18/2024 [id number] / / [id number] Duraclip 16mm Xlg Repostn - [id number] Implanted:Qty: 1 on 03/16/2023 by Irving Iyer MD at OR [facility] [employer] [id number] 05/18/2024 [id number] / / [id number] documented as of this encounter Procedures Procedure [...] (ABNORMAL) DIFFERENTIAL, AUTOMATED (07/07/2024 8:01 AM EDT) WBC 5.10 4.00 - 10.80 K/uL 07/07/2024 8:11 AM EDT LAB[facility]ORY [place] 56-02 Neutrophils % 53.7 40.0 - 75.0 % 07/07/2024 8:11 AM EDT LAB[facility]ORY [place] 56-02 Lymphocytes % 30.4 18.0 - 42.0 % 07/07/2024 8:11 AM EDT [facility] [place] 56-02 Monocytes % 15.5(H) 1.0 - 11.0 % 07/07/2024 8:11 AM EDT [facility] [place] 56-02 Eosinophils % 0.2 0.0 - 6.0 % 07/07/2024 8:11 AM EDT LAB[facility] [place] 56-02 Basophils % 0.2 0.0 - 2.0 % 07/07/2024 8:11 AM EDT [facility] [place] 56-02 Absolute Neutrophils 2.74 1.80 - 7.70 K/uL 07/07/2024 8:11 AM EDT [facility] [place] 56-02 Absolute Lymphocytes 1.55 1.00 - 4.80 K/ul 07/07/2024 8:11 AM EDT LAB[facility] [place] 56-02 Absolute Monocytes 0.79 0.00 - 1.10 K/uL 07/07/2024 8:11 AM EDT [facility] [place] 56-02 Absolute Eosinophils 0.01 0.00 - 0.70 K/uL 07/07/2024 8:11 AM EDT [facility] [place] 56-02 Absolute Basophils 0.01 0.00 - 0.20 K/uL 07/07/2024 8:11 AM EDT [facility] 56 Blood Venous blood specimen / Unknown Venipuncture / Unknown 07/07/2024 8:01 AM EDT 07/07/2024 8:01 AM EDT Abbey Aguiar MD LAB BLOOD [facility] [address] [place], [place] [id number] * (ABNORMAL) CBC (07/07/2024 8:01 AM EDT) WBC 5.10 4.00 - 10.80 K/uL 07/07/2024 8:11 AM EDT [address] RBC 2.81 4.50 - 5.25 M/uL 07/07/2024 8:11 AM EDT [address] HGB 9.7(L) 14.0 - 16.8 g/dL 07/07/2024 8:11 AM EDT [address] HCT 29.9(L) 40.0 - 48.4 % 07/07/2024 8:11 AM EDT [address] MCV 106.4 82.0 - 99.5 fL 07/07/2024 8:11 AM EDT [address] MCH 34.5 27.0 - 34.0 pg 07/07/2024 8:11 AM EDT [address] MCHC 32.4 32.0 - 36.0 g/dL 07/07/2024 8:11 AM EDT [address] RDW 14.9 11.5 - 15.5 % 07/07/2024 8:11 AM EDT [facility] 56 PLT 125(L) 140 - 400 K/uL 07/07/2024 8:11 AM EDT [facility] 56 MPV 8.9 6.6 - 11.1 fL 07/07/2024 8:11 AM EDT [facility] 56 Blood Venous blood specimen / Unknown Venipuncture / Unknown 07/07/2024 8:01 AM EDT 07/07/2024 8:01 AM EDT Abbey Aguiar MD LAB BLOOD [facility] [place] 56-[address] [place] [address] documented in this encounter Visit Diagnoses Diagnosis Multiple myeloma not having achieved remission (HCC) Multiple myeloma, without mention of having achieved remission History of colonic polyps Personal history of colonic polyps documented in this encounter Care Teams Chassis Inspector Relationship Specialty Start Date End Date Jean Claude [facility] [address] PCP - General Internal Medicine 05/09/24 documented as of this encounter
--- OUTSIDE RECORDS SUMMARY | 2024-07-27 10:41 | External Medical Summary ---
Author Name Unknown Address Unknown Organization [facility] [place] [address] Laboratory Report Ordering Provider Test Date Status CARLENE PEREZ 07/11/2024 07:48:48 Final Observation Date Value Abnormality Reference (Units ) Status WBC, Total 07/11/2024 07:48:48 2.89 Below low normal 4. 00-10.80 (K/uL) Final RBC 07/11/2024 07:48:48 2.98 4.50-5.25 (M/uL) Final Hemoglobin 07/11/2024 07:48:48 10.3 Below low normal 14 .0-16.8 (g/dL) Final HCT 07/11/2024 07:48:48 30.8 Below low normal 40. 0-48.4 (%) Final MCV 07/11/2024 07:48:48 103.4 82.0-99.5 (fL) Final MCH 07/11/2024 07:48:48 34.6 27.0-34.0 (pg) Final MCHC 07/11/2024 07:48:48 33.4 32.0-36.0 (g/dL) Final RDW 07/11/2024 07:48:48 14.6 11.5-15.5 (%) Final Platelets 07/11/2024 07:48:48 98 Below low normal 140 -400 (K/uL) Final MPV 07/11/2024 07:48:48 10.7 6.6-11.1 ( fL) Final Performing Location [facility] [place] [address]
--- OUTSIDE RECORDS SUMMARY | 2024-07-27 10:41 | External Medical Summary ---
Author Name Unknown Address Unknown Organization K[facility] [place] [address] Laboratory Report Ordering Provider Test Date Status CARLENE PEREZ 07/11/2024 07:48:48 Final Observation Date Value Abnormality Reference (Units ) Status Nucleated erythrocytes/100 leukocytes [Ratio] in Blood by Automated count 07/11/2024 07:48:48 Final Performing Location [facility] [place] [address]
--- OUTSIDE RECORDS SUMMARY | 2024-07-27 10:41 | External Medical Summary | Summary of Care ---
Author Name Unknown Organization [facility] Address [address] [place] [address] Phone [phone] Care Team Providers Care Metal Drill Operator Name Role Phone Jean Claude Yao DO Primary Care Provider [phone] Reason for Visit * Reason Comments Outpatient Testing Encounter Details Date Type Department Care Team (Late st Contact Info) Description 07/07/2024 8:00 AM EDT Laboratory Laboratory [facility] [place] [address] [place] [address] [place], Lab [facility] [place] [address] Multiple myeloma not having achieved remission (HCC) [...] Description 07/11/2024 7:50 AM EDT Laboratory Laboratory Kelli Kelsey [place] [address] [place] [phone] [place], Lab Kelli [address] [facility] [place] [address] 07/11/2024 9:00 AM EDT Hem/Onc Treatment Hematology/Oncolog y Treatment, [place] [address] [place] [phone] Laure, Chair [address] [place] [address] 07/19/2024 8:30 AM EDT Laboratory Laboratory Kelli Kelsey [place] [address] [phone] [place] Lab [place] 200 Kelli Mendoza [facility] [place] [address] 07/19/2024 9:00 AM EDT Pharmacy Pharmacy Hematology Oncology [facility] [address] [place] [address] [facility], [facility] Hem/Onc [address] [facility] [place] [address] 07/19/2024 9:30 AM EDT Hem/Onc Treatment Hematology/Oncolog y Treatment, [place] [address] [facility], [place] [address] Laure, Chair 8 Hem Onc Scenery [address] [place], [place] [address] 07/22/2024 7:50 AM EDT Laboratory Laboratory [facility] [place] [address] [place], [place] [address] La[place], Lab Scenery [address] [place], [place] [address] 07/22/2024 9:00 AM EDT Hem/Onc Treatment Hematology/Oncolog y Treatment, [place] [address] [facility], [place] [address] Laure, Chair 6 Hem Onc Scenery [address] [place], [place] [address] 07/25/2024 8:00 AM EDT Laboratory Laboratory [facility] [place] [address] [place], [place] [address] La[place], Lab Scenery [address] [place] [address] 07/25/2024 9:00 AM EDT Hem/Onc Treatment Hematology/Oncolog y Treatment, [place] [address] [facility], [place] [address] Laure, Chair 3 Hem Onc Scenery [address] [place], [place] [address] 07/28/2024 8:00 AM EDT Laboratory Laboratory [facility] [place] [address] [place] [address] Laure, Lab Scenery [address] [place], [place] [address] 07/28/2024 9:00 AM EDT Hem/Onc Treatment Hematology/Oncolog y [facility], [place] [address] [place], [place] [address] Park, Chair 6 Hem Onc Scenery [address] [place] [address] 08/01/2024 7:20 AM EDT Laboratory Laboratory [facility] [place] [address] [place] [address] Laure, Lab Scenery [address] [facility] [place], [place] [address] 08/01/2024 8:00 AM EDT Office Visit Hematology/Oncolog y Scenery [place] [address] [place], [place] [address] Abbey Aguiar MD [address] [place], [place] [address] 08/01/2024 8:30 AM EDT Hem/Onc Treatment Hematology/Oncolog y [facility], [place] [address] [place], [place] [phone] Laure, Chair 5 Hem Onc Scenery [address] [place], [place] [address] 08/23/2024 10:00 AM EDT Office Visit Family Practice [address], [place] [address] [place] [phone] Jean Claude Yao DO 293 [place] [address] 09/08/2024 2:30 PM EDT Hospital Encounter ENDO [facility], Endoscopy Room [facility] [address] [place] [phone] Irving Iyer MD [address] [place] [address] 09/08/2024 2:30 PM EDT - 09/08/2024 3:00 PM EDT Surgery ENDO [facility], Endoscopy Room [facility] [address] [place] [phone] Irving Iyer MD [address] [place] [address] COLONOSCOPY FLEXIBLE PROXIMAL DIAGNOSTIC 03/13/2025 11:00 AM EDT Office Visit Sleep Disorders Ctr [facility] [address] [place] [phone] Ruma Orellana DO [address] [place] [address] Scheduled Procedures Name Priority Associated Diagnoses Date/Ti [...] 12/09/2022, 120 11/2011 CKD PHOS USE SMARTSET 11454 06/15/2024 06/15/2023 Colonoscopy 06/29/2024 06/29/2023, 06/16, 03/16/2023, Additional history exists Colorectal Cancer Screening 06/29/2024 Influenza Vaccine (FLU shot) (#1) 2024 08/03/2023, 08/08/2022 HbA1c 09/29/2024 03/29/2024, 120 11/2022, 06/15/2023 Depression Screening 09/30/2024 09/30/2023 GFR 01/07/2025 07/07/2024, 06/16, 06/29/2024, Additional history exists Diabetic Eye Exam 01/20/2025 01/21/2024, , 05/26/2022 Diabetic Foot Exam 04/12/2025 04/12/2024, 04/12/2024 Albumin/Creatinine Ratio 05/09/2025 024, 06/15/2023, 06/03/2022 CKD HGB USE SMARTSET 08887 07/07/202507/07, 07/07/2024, 07/04/2024, Additional history exists DTaP,Tdap,and [...] this encounter Medical Devices Implanted Type Area Glove Wrapper Device Identifier Shelf Expiration Date Model / Serial / Lot Sureclip 16mm 235cm - [id number] Implanted:Qty: 1 on 03/16/2023 by Irving Iyer MD at OR [facility] MICRO TECH ENDOSCOPY [id number] 05/19/2025 [id number] / / [id number] Duraclip 16mm Xlg Repostn - [id number] Implanted:Qty: 1 on 03/16/2023 by Irving Iyer MD at OR [facility] [employer] [id number] 05/18/2024 [id number] / / [id number] Duraclip 16mm Xlg Repostn - [id number] Implanted:Qty: 1 on 03/16/2023 by Irving Iyer MD at OR [facility] [employer] [id number] 05/18/2024 [id number] / / [id number] Duraclip 16mm Xlg Repostn - [id number] Implanted:Qty: 1 on 03/16/2023 by Irving Iyer MD at OR [facility] [employer] [id number] 05/18/2024 [id number] / / [id number] Duraclip 16mm Xlg Repostn - [id number] Implanted:Qty: 1 on 03/16/2023 by Irving Iyer MD at OR [facility] [employer] [id number] 05/18/2024 [id number] / / [id number] Duraclip 16mm Xlg Repostn - [id number] Implanted:Qty: 1 on 03/16/2023 by Irving Iyer MD at OR [facility] [employer] [id number] 05/18/2024 [id number] / / [id number] Duraclip 16mm Xlg Repostn - [id number] Implanted:Qty: 1 on 03/16/2023 by Irving Iyer MD at OR [facility] [employer] [id number] 05/19/2024 [id number] / / [id number] Duraclip 16mm Xlg Repostn - [id number] Implanted:Qty: 1 on 03/16/2023 by Irving Iyer MD at OR [facility] [employer] [id number] 05/19/2024 [id number] / / [id number] Duraclip 16mm Xlg Repostn - [id number] Implanted:Qty: 1 on 03/16/2023 by Irving Iyer MD at OR [facility] [employer] [id number] 05/19/2024 [id number] / / [id number] Duraclip 16mm Xlg Repostn - [id number] Implanted:Qty: 1 on 03/16/2023 by Irving Iyer MD at OR [facility] [employer] PHILLIP [id number] 05/18/2024 [id number] / / [id number] Duraclip 16mm Xlg Repostn - [id number] Implanted:Qty: 1 on 03/16/2023 by Irving Iyer MD at OR [facility] [employer] [id number] 05/18/2024 [id number] / / [id number] Duraclip 16mm Xlg Repostn - [id number] Implanted:Qty: 1 on 03/16/2023 by Irving Iyer MD at OR [facility] [employer] [id number] 05/18/2024 [id number] / / [id number] Duraclip 16mm Xlg Repostn - [id number] Implanted:Qty: 1 on 03/16/2023 by Irving Iyer MD at OR [facility] [employer] [id number] 05/18/2024 [id number] / / [id number] Duraclip 16mm Xlg Repostn - [id number] Implanted:Qty: 1 on 03/16/2023 by Irving Iyer MD at OR [facility] [employer] [id number] 05/18/2024 [id number] / / [id number] documented as of this encounter Procedures Procedure [...] - 10.80 K/uL 07/07/2024 8:11 AM EDT [facility] 56- Neutrophils % 53.7 40.0 - 75.0 % 07/07/2024 8:11 AM EDT [facility] 56- Lymphocytes % 30.4 18.0 - 42.0 % 07/07/2024 8:11 AM EDT [facility] 56- Monocytes % 15.5(H) 1.0 - 11.0 % 07/07/2024 8:11 AM EDT [facility] 56- Eosinophils % 0.2 0.0 - 6.0 % 07/07/2024 8:11 AM EDT [facility] 56- Basophils % 0.2 0.0 - 2.0 % 07/07/2024 8:11 AM EDT [facility] 56- Absolute Neutrophils 2.74 1.80 - 7.70 K/uL 07/07/2024 8:11 AM EDT [facility] 56- Absolute Lymphocytes 1.55 1.00 - 4.80 K/ul 07/07/2024 8:11 AM EDT [facility] 56- Absolute Monocytes 0.79 0.00 - 1.10 K/uL 07/07/2024 8:11 AM EDT [facility] 56- Absolute Eosinophils 0.01 0.00 - 0.70 K/uL 07/07/2024 8:11 AM EDT [facility] 56- Absolute Basophils 0.01 0.00 - 0.20 K/uL 07/07/2024 8:11 AM EDT [facility] 56-02 Blood Venous blood specimen / Unknown Venipuncture / Unknown 07/07/2024 8:01 AM EDT 07/07/2024 8:01 AM EDT Abbey Aguiar MD LAB BLOOD ORDERA BLES [facility] 56- [address] [place] [address] * (ABNORMAL) CBC (07/07/2024 8:01 AM EDT) WBC 5.10 4.00 - 10.80 K/uL 07/07/2024 8:11 AM EDT [facility] 56 RBC 2.81 4.50 - 5.25 M/uL 07/07/2024 8:11 AM EDT [facility] 56 HGB 9.7(L) 14.0 - 16.8 g/dL 07/07/2024 8:11 AM EDT [facility] 56 HCT 29.9(L) 40.0 - 48.4 % 07/07/2024 8:11 AM EDT [facility] 56 MCV 106.4 82.0 - 99.5 fL 07/07/2024 8:11 AM EDT [address] MCH 34.5 27.0 - 34.0 pg 07/07/2024 8:11 AM EDT [facility] 56 MCHC 32.4 32.0 - 36.0 g/dL 07/07/2024 8:11 AM EDT [address] RDW 14.9 11.5 - 15.5 % 07/07/2024 8:11 AM EDT [facility] 56 PLT 125(L) 140 - 400 K/uL 07/07/2024 8:11 AM EDT [address] MPV 8.9 6.6 - 11.1 fL 07/07/2024 8:11 AM EDT [facility] 56 Blood Venous blood specimen / Unknown Venipuncture / Unknown 07/07/2024 8:01 AM EDT 07/07/2024 8:01 AM EDT Abbey Aguiar MD LAB BLOOD [facility]ES [facility] [address] [place] [address] * (ABNORMAL) COMPREHENSIVE METABOLIC PANEL (07/07/2024 8:01 AM EDT) Pathologist [facility] BUN 28(H) 6 - 20 mg/dL 07/07/2024 8:55 AM EDT [facility] 56 Creatinine 1.4(H) 0.6 - 1.2 mg/dL 07/07/2024 8:55 AM [facility] 56 Estimated Glomerular Filtration Rate 55(L) >=60 mL/min 07/07/2024 8:55 AM [facility] 56- Comment:eGFR is calculated b ased on the CKD-EPI 2020 equation. Sodium 141 135 - 146 mmol/L 07/07/2024 8:55 AM [facility] 56- Potassium 3.9 3.5 - 5.1 mmol/L 07/07/2024 8:55 AM [facility] 56- Chloride 105 98 - 107 mmol/L 07/07/2024 8:55 AM [facility] 56 CO2 24 22 - 32 mmol/L 07/07/2024 8:55 AM [facility] 56 Anion Gap 12 7 - 15 mmol/L 07/07/2024 8:55 AM [facility] 56 Glucose 145(H) 70 - 120 mg/dL 07/07/2024 8:55 AM [facility] 56 Albumin 3.6(L) 3.8 - 5.0 g/dL 07/07/2024 8:55 AM [facility] 56 AST 15 10 - 50 U/L 07/07/2024 8:55 AM [facility] 56 Alkaline Phosphatase 83 35 - 130 U/L 07/07/2024 8:55 AM [facility] 56 Bilirubin, Total 0.4 <=1.2 mg/dL 07/07/2024 8:55 AM [facility] 56- Calcium 8.6 8.4 - 10.2 mg/dL 07/07/2024 8:55 AM [facility] 56- Protein 6.7 6.0 - 8.3 g/dL 07/07/2024 8:55 AM [facility] 56- ALT 15 10 - 50 U/L 07/07/2024 8:55 AM [facility] 56- Blood Venous blood specimen / Unknown Venipuncture / Unknown 07/07/2024 8:01 AM EDT 07/07/2024 8:01 AM EDT Abbey Aguiar MD LAB BLOOD ORDERA BLES [facility] 56-02 [address] [place] [address] documented in this encounter Visit Diagnoses Diagnosis Multiple myeloma not having achieved remission (HCC) Multiple myeloma, without mention of having achieved remission History of colonic polyps Personal history of colonic polyps documented in this encounter Care Teams Metal Drill Operator Relationship Specialty Start Date End Date Jean Claude Yao DO [address] [place] [address] PCP - General Internal Medicine 05/09/24 documented as of this encounter
--- OUTSIDE RECORDS SUMMARY | 2024-07-27 10:41 | External Medical Summary | Summary of Care ---
Author Name Unknown Organization [facility] Address [address] [place] [address] Phone [phone] Care Team Providers Care Commodity Trader Name Role Phone Jean Claude Yao DO Primary Care Provider [phone] Reason for Visit * Reason Comments Chemotherapy Velcade * Episode Based Medications (Routine) - Authorized Specialty Diagnoses / Procedures Referred By Contac t Referred To Contact Diagnoses Multiple myeloma not having achieved remission (HCC) Encounter for antineoplastic chemotherapy Procedures OK DARATUMUMAB, HYALURONIDASE OK INJECTION, BORTEZOMIB, 0.1MG Abbey Aguiar MD 200 [facility] [place] [address] Anc Hem/Onc [facility] Laure [address] [place] [phone] Referral ID Status Reason Start Date Expiration Date V isits Requested Visits Authorized [id number] Authorized 06/03/2024 06/03/2025 999 999 Encounter Details Date Type Department Care Team (Latest Contact Info) Description 07/07/2024 9:00 AM EDT Hem/Onc Treatment Hematology/Oncolog y Treatment, [address] [address] Laure, Chair 6 Hem Onc [address] [place] [address] Multiple myeloma not having achieved remission [...] in this encounter Nursing Notes * Jessie Glass RN - 07/07/2024 9:41 AM EDT Chair [...] Description 07/11/2024 7:50 AM EDT Laboratory Laboratory [facility] Laure [place] [address] [place] [phone] Laure, Lab Scenery [address] [place] [address] 07/11/2024 9:00 AM EDT Hem/Onc Treatment Hematology/Oncolog y Treatment, [place] 200 [facility] [place] [phone] Laure, Chair 10 Hem Onc Scenery [address] [place] [address] [address] 07/19/2024 8:30 AM EDT Laboratory Laboratory Sh[place] Laure [place] [address] [place] [phone] Laure Lab Scenery [address] [place] [address] [address] 07/19/2024 9:00 AM EDT Pharmacy Pharmacy Hematology Oncology [place] [address] [place] [address] [facility] Hem/Onc [facility] [place] [address] 07/19/2024 9:30 AM EDT Hem/Onc Treatment Hematology/Oncolog y Treatment, [place] 200 [facility] [place] [phone] Laure, Chair 8 Hem Onc Scenery [address] [place] [address] [address] 07/22/2024 7:50 AM EDT Laboratory Laboratory Sh[place] La[place] [address] [place] [place] [phone] [place], Lab Scenery [address] [place] [address] 07/22/2024 9:00 AM EDT Hem/Onc Treatment Hematology/Oncolog y Treatment, [place] 200 [place] [address] Laure, Chair 6 Hem Onc Scenery [address] [place] [address] 07/25/2024 8:00 AM EDT Laboratory Laboratory Sc[facility] [place] [address] [place] [address] Laure, Lab Scenery [address] [place] [address] 07/25/2024 9:00 AM EDT Hem/Onc Treatment Hematology/Oncolog y Treatment, [place] 200 [place] [address] Laure, Chair 3 Hem Onc Scenery [address] [place] [address] 07/28/2024 8:00 AM EDT Laboratory Laboratory [facility] [place] [address] [place] [address] Laure, Lab Scenery [address] [place] [address] 07/28/2024 9:00 AM EDT Hem/Onc Treatment Hematology/Oncolog y Treatment, [place] 200 [place] [address] Laure, Chair 6 Hem Onc Scenery [address] [place] [address] 08/01/2024 7:20 AM EDT Laboratory Laboratory [facility] [place] [address] [place] [address] Laure, Lab Scenery [address] [place] [address] 08/01/2024 8:00 AM EDT Office Visit Hematology/Oncolog y [facility] [address] [place], [place] [phone] Abbey Aguiar MD [address] [place], [place] [address] 08/01/2024 8:30 AM EDT Hem/Onc Treatment Hematology/Oncolog y Treatment, [place] [address] [place], [place] [phone] Laure, Chair 5 Hem Onc Scenery [address] [place] [address] 08/23/2024 10:00 AM EDT Office Visit Family Practice [address] [place] [address] 293 [facility], [place] [address] Jean Claude Yao DO 293 [facility], [place] [address] 09/08/2024 2:30 PM EDT Hospital Encounter ENDO [facility], Endoscopy Room [facility] [address] [place] [phone] Irving Iyer MD [address] [place] [address] 09/08/2024 2:30 PM EDT - 09/08/2024 3:00 PM EDT Surgery ENDO [facility], Endoscopy Room [facility] [address] [place] [phone] Irving Iyer MD [address] [place] [address] COLONOSCOPY FLEXIBLE PROXIMAL DIAGNOSTIC 03/13/2025 11:00 AM EDT [facility] [address] [place] [phone] Ruma Orellana, [address] [place] [address] Scheduled Procedures Name Priority Associated Diagnoses Date/Ti me COLONOSCOPY FLEXIBLE PROXIMAL DIAGNOSTIC Recall History of colonic polyps 09/08/2024 2:30 PM EDT Health Maintenance Due Date Last Done Comments Cologuard 1997 Fecal Occult Blood Test 1997 Sigmoidoscopy 1997 Adult Wellness Visit 2018 COVID-19 Vaccine (3 - Moderna risk series) 04/19/2021 03/22/2021, 02/21/2021 Zoster Vaccines (2 of 2) 02/03/2023 12/09/2022, 12/11/2011 CKD PHOS USE SMARTSET 37789 06/15/2024 06/15/2023 Colonoscopy 06/29/2024 06/29/2023, 06/16, 03/16/2023, Additional history exists Colorectal Cancer Screening 06/29/2024 Influenza Vaccine (FLU shot) (#1) 2024 08/03/2023, 08/08/2022 HbA1c 09/29/2024 03/29/2024, 1211/2022, 06/15/2023 Depression Screening 09/30/2024 09/30/2023 GFR 01/07/2025 07/07/2024, 06/16, 06/29/2024, Additional history exists Diabetic Eye Exam 01/20/2025 01/21/2024, , 05/26/2022 Diabetic Foot Exam 04/12/2025 04/12/2024, 04/12/2024 Albumin/Creatinine Ratio 05/09/202505/09/2 024, 06/15/2023, 06/03/2022 CKD HGB USE SMARTSET 90543 07/07/202507/07, 07/07/2024, 07/04/2024, Additional history exists DTaP,Tdap,and [...] this encounter Medical Devices Implanted Type Area Body Coverer Device Identifier Shelf Expiration Date Model / Serial / Lot Sureclip 16mm 235cm - [id number] Implanted:Qty: 1 on 03/16/2023 by Irving Iyer MD at OR [facility] MICRO TECH ENDOSCOPY [id number] 05/19/2025 [id number] / / [id number] Duraclip 16mm Xlg Repostn - [id number] Implanted:Qty: 1 on 03/16/2023 by Irving Iyer MD at OR [facility] [employer] [id number] 05/18/2024 [id number] / / [id number] Duraclip 16mm Xlg Repostn - [id number] Implanted:Qty: 1 on 03/16/2023 by Irving Iyer MD at OR [facility] [employer] [id number] 05/18/2024 [id number] / / [id number] Duraclip 16mm Xlg Repostn - [id number] Implanted:Qty: 1 on 03/16/2023 by Irving Iyer MD at OR [facility] [employer] [id number] 05/18/2024 [id number] / / [id number] Duraclip 16mm Xlg Repostn - [id number] Implanted:Qty: 1 on 03/16/2023 by Irving Iyer MD at OR [facility] [employer] [id number] 05/18/2024 [id number] / / [id number] Duraclip 16mm Xlg Repostn - [id number] Implanted:Qty: 1 on 03/16/2023 by Irving Iyer MD at OR [facility] [employer] [id number] 05/18/2024 [id number] / / [id number] Duraclip 16mm Xlg Repostn - [id number] Implanted:Qty: 1 on 03/16/2023 by Irving Iyer MD at OR [facility] [employer] [id number] 05/19/2024 [id number] / / [id number] Duraclip 16mm Xlg Repostn - [id number] Implanted:Qty: 1 on 03/16/2023 by Irving Iyer MD at OR [facility] [employer] [id number] 05/19/2024 [id number] / / [id number] Duraclip 16mm Xlg Repostn - [id number] Implanted:Qty: 1 on 03/16/2023 by Irving Iyer MD at OR [facility] [employer] [id number] 05/19/2024 [id number] / / [id number] Duraclip 16mm Xlg Repostn - [id number] Implanted:Qty: 1 on 03/16/2023 by Irving Iyer MD at OR [facility] [employer] [id number] 05/18/2024 [id number] / / [id number] Duraclip 16mm Xlg Repostn - [id number] Implanted:Qty: 1 on 03/16/2023 by Irving Iyer MD at OR [facility] [employer] [id number] 05/18/2024 [id number] / / [id number] Duraclip 16mm Xlg Repostn - [id number] Implanted:Qty: 1 on 03/16/2023 by Irving Iyer MD at OR [facility] [employer] [id number] 05/18/2024 [id number] / / [id number] Duraclip 16mm Xlg Repostn - [id number] Implanted:Qty: 1 on 03/16/2023 by Irving Iyer MD at OR [facility] [employer] [id number] 05/18/2024 [id number] / / [id number] Duraclip 16mm Xlg Repostn - [id number] Implanted:Qty: 1 on 03/16/2023 by Irving Iyer MD at OR [facility] [employer] [id number] 05/18/2024 [id number] / / [id number] documented as of this encounter Visit Diagnoses [...] ONCE PRN Other, Hypersensitivity Reaction, Starting on Thu07/07/24 at 0920, Until Thu07/08/24 at 0919, For 24 hours EPINEPHrine 1 MG/ML inj 0.3 mg 0.3 mg, Intramuscular, ONCE PRN Other, Hypersensitivity Reaction or Anaphylaxis, Starting on Thu07/07/24 at 0920, Until Thu07/08/24 at 0919, For 24 hours Hydrocortisone Sod Suc (PF) (Solu-Cortef) inj 100 mg 100 mg, IV Push, ONCE PRN Other, Hypersensitivity Reaction, Starting on Thu07/07/24 at 0920, Until Thu07/08/24 at 0919, For 24 hours oxygen GAS Inhalation, OXYGEN, First dose on Thu07/07/24 at 1000, Until Discontinued, Device/Managed by: Low [...] Lower documented in this encounter Care Teams Commodity Trader Relationship Specialty Start Date End Date Jean Claude Yao DO [address] [place] [address] PCP - General Internal Medicine 05/09/24 documented as of this encounter
--- OUTSIDE RECORDS SUMMARY | 2024-07-27 10:41 | External Medical Summary | Summary of Care ---
Author Name Unknown Organization [facility] Address [address] [place] [address] Phone [phone] Care Team Providers Care Business Integration Analyst Name Role Phone Jean Claude Yao DO Primary Care Provider [phone] Reason for Visit * Reason Comments Chemotherapy C1 D8 Darzalex Faspr o/ velcade * Episode Based Medications (Routine) - Authorized Specialty Diagnoses / Procedures Referred By Contpreston t Referred To Contact Diagnoses Multiple myeloma not having achieved remission (HCC) Encounter for antineoplastic chemotherapy Procedures [place] DARATUMUMAB, HYALURONIDASE [place] INJECTION, BORTEZOMIB, 0.1MG Abbey Aguiar MD 200 [facility] [place] [address] Anc Hem/Onc [facility] Laure [address] [place] [phone] Referral ID Status Reason Start Date Expiration Date V isits Requested Visits Authorized [id number] Authorized 06/03/2024 06/03/[phone] Encounter Details Date Type Department Care Team (Latest Contact Info) Description 07/04/2024 9:00 AM EDT Hem/Onc Treatment Hematology/Oncolog y Treatment, [address] [address] Laure, Chair 10 Hem Onc [address] [place] [address] Multiple myeloma not having achieved remission (HCC)*; Encounter for antineoplastic chemotherapy Allergies No known active allergiesdocumented as of this encounter (statuses as of 07/04/2024) Medications Medication Sig Dispensed Refills Start Date [...] as of this encounter (statuses as of 07/04/2024) Active Problems Problem Noted Date Diagnosed Date [...] as of this encounter (statuses as of 07/04/2024) Resolved Problems Problem Noted Date Diagnosed Date Resolved Date Prediabetes 10/26/2023 12/31/2023 Overview: Per Prediabetes protocol Hypertensive kidney disease with stage 3a chronic kidney disease 07/02/2023 03/29/2024 Lesion of pancreas 12/09/2022 documented as of this encounter (statuses as of 07/04/2024) Immunizations Name Administration Dates Next Due COVID-19 [...] Care Team (Latest Contact Info) Description 07/07/2024 8:00 AM EDT Laboratory Laboratory [facility] [place] [address] [place] [phone] Laure, Lab Scenery 200 [facility] [place] [address] 07/07/2024 9:00 AM EDT Hem/Onc Treatment Hematology/Oncolog y Treatment, [address] [place] [phone] Laure, Chair 6 Hem Onc [facility] [address] [place] [address] 07/11/2024 7:50 AM EDT Laboratory Laboratory [facility] Laure [place] [address] [place] [address] Laure, Lab Scenery [address] [place] [address] [address] 07/11/2024 9:00 AM EDT Hem/Onc Treatment Hematology/Oncolog y Treatment, [place] 200 [facility] [place] [address] Laure, Chair 10 Hem Onc Scenery 200 [facility] [place] [address] 07/19/2024 8:30 AM EDT Laboratory Laboratory Sh[facility] Laure [place] [address] [place], [place] [phone] Laure, Lab Scenery [address] [place], [place] [address] 07/19/2024 9:00 AM EDT Pharmacy Pharmacy Hematology Oncology [facility] [address] [place] [address] [facility] Hem/Onc [address] [place] [address] 07/19/2024 9:30 AM EDT Hem/Onc Treatment Hematology/Oncolog y Treatment, [place] 200 [facility], [place] [address] Laure, Chair 8 Hem Onc Scenery [address] [place] [address] 07/22/2024 7:50 AM EDT Laboratory Laboratory Kelli Kelsey [place] [address] [place] [phone] Laure Lab Scenery [address] [place], [place] [address] 07/22/2024 9:00 AM EDT Hem/Onc Treatment Hematology/Oncolog y Treatment, [place] 200 [facility], [place] [address] Laure, Chair 6 Hem Onc Scenery [address] [place] [address] 07/25/2024 8:00 AM EDT Laboratory Laboratory Kelli Kelsey [place] [address] [place], [place] [phone] Laure, Lab Scenery [address] [place], [place] [address] 07/25/2024 9:00 AM EDT Hem/Onc Treatment Hematology/Oncolog y Treatment, [place] 200 [place] [address] Laure, Chair 3 Hem Onc Scenery [address] [place], [place] [address] 07/28/2024 8:00 AM EDT Laboratory Laboratory [facility] [place] [address] [place], [place] [address] Laure, Lab Scenery [address] [place], [place] [address] 07/28/2024 9:00 AM EDT Hem/Onc Treatment Hematology/Oncolog y Treatment, [place] 200 [facility], [place] [address] Laure, Chair 6 Hem Onc Scenery [address] [place], [place] [address] 08/01/2024 7:20 AM EDT Laboratory Laboratory Scenery [place] [address] [place], [place] [phone] Laure, Lab Scenery [address] [place], [place] [address] 08/01/2024 8:00 AM EDT Office Visit Hematology/Oncolog y Scenery Laure [place] [address] [place], [place] [address] Abbey Aguiar MD [address] [place], [place] [address] 08/01/2024 8:30 AM EDT Hem/Onc Treatment Hematology/Oncolog y Treatment, [place] 200 [place] [phone] Laure, Chair 5 Hem Onc Scenery [address] [place], [place] [address] 08/23/2024 10:00 AM EDT Office Visit Family Practice 65 [facility], [place] [address] [place] [place] [phone] Jean Claude Yao, DO [address] [place] [address] 09/08/2024 2:30 PM EDT Hospital Encounter ENDO [facility], Endoscopy Room [facility] [address] [place] [phone] Irving Iyer MD [address] [place] [address] 09/08/2024 2:30 PM EDT - 09/08/2024 3:00 PM EDT Surgery ENDO [facility], Endoscopy Room [facility] [address] [place] [phone] Irving Iyer MD [address] [place] [address] COLONOSCOPY FLEXIBLE PROXIMAL DIAGNOSTIC 03/13/2025 11:00 AM EDT Office Visit Sleep Disorders Ctr [facility] [address] [place] [phone] Ruma Orellana DO [address] [place] [address] Scheduled Procedures Name Priority Associated Diagnoses Date/Ti [...] 12/09/2022, 12/0 11/2011 CKD PHOS USE SMARTSET 82157 06/15/2024 06/15/2023 Colonoscopy 06/29/2024 06/29/2023, 06/16, 03/16/2023, Additional history exists Colorectal Cancer Screening 06/29/2024 Influenza Vaccine (FLU shot) (#1) 2024 08/03/2023, 08/08/2022 HbA1c 09/29/2024 03/29/2024, 11/2022, 06/15/2023 Depression Screening 09/30/2024 09/30/2023 GFR 01/04/2025 07/04/2024, 06/16, 06/27/2024, Additional history exists Diabetic Eye Exam 01/20/2025 01/21/2024, , 05/26/2022 Diabetic Foot Exam 04/12/2025 04/12/2024, 04/12/2024 Albumin/Creatinine Ratio 05/09/2025 024, 06/15/2023, 06/03/2022 CKD HGB USE SMARTSET 61835 07/04/202507/04, 07/04/2024, 06/29/2024, Additional history exists DTaP,Tdap,and Td Vaccines (3 [...] this encounter Medical Devices Implanted Type Area Flavoring Maker Device Identifier Shelf Expiration Date Model / Serial / Lot Sureclip 16mm 235cm - [id number] Implanted:Qty: 1 on 03/16/2023 by Irving Iyer MD at OR [facility] MICRO TECH ENDOSCOPY [id number] 05/19/2025 [id number] / / [id number] Duraclip 16mm Xlg Repostn - [id number] Implanted:Qty: 1 on 03/16/2023 by Irving Iyer MD at OR [facility] [employer] [id number] 05/18/2024 [id number] / / [id number] Duraclip 16mm Xlg Repostn - [id number] Implanted:Qty: 1 on 03/16/2023 by Irving Iyer MD at OR [facility] [employer] [id number] 05/18/2024 [id number] / / [id number] Duraclip 16mm Xlg Repostn - [id number] Implanted:Qty: 1 on 03/16/2023 by Irving Iyer MD at OR [facility] [employer] [id number] 05/18/2024 [id number] / / [id number] Duraclip 16mm Xlg Repostn - [id number] Implanted:Qty: 1 on 03/16/2023 by Irving Iyer MD at OR [facility] [employer] [id number] 05/18/2024 [id number] / / [id number] Duraclip 16mm Xlg Repostn - [id number] Implanted:Qty: 1 on 03/16/2023 by Irving Iyer MD at OR [facility] [employer] [id number] 05/18/2024 [id number] / / [id number] Duraclip 16mm Xlg Repostn - [id number] Implanted:Qty: 1 on 03/16/2023 by Irving Iyer MD at OR [facility] [employer] [id number] 05/19/2024 [id number] / / [id number] Duraclip 16mm Xlg Repostn - [id number] Implanted:Qty: 1 on 03/16/2023 by Irving Iyer MD at OR [facility] [employer] [id number] 05/19/2024 [id number] / / [id number] Duraclip 16mm Xlg Repostn - [id number] Implanted:Qty: 1 on 03/16/2023 by Irving Iyer MD at OR [facility] C[employer]I [id number] 05/19/2024 [id number] / / [id number] Duraclip 16mm Xlg Repostn - [id number] Implanted:Qty: 1 on 03/16/2023 by Irving Iyer MD at OR [facility] [employer] [id number] 05/18/2024 [id number] / / [id number] Duraclip 16mm Xlg Repostn - [id number] Implanted:Qty: 1 on 03/16/2023 by Irving Iyer MD at OR [facility] [employer] [id number] 05/18/2024 [id number] / / [id number] Duraclip 16mm Xlg Repostn - [id number] Implanted:Qty: 1 on 03/16/2023 by Irving Iyer MD at OR [facility] [employer] [id number] 05/18/2024 [id number] / / [id number] Duraclip 16mm Xlg Repostn - [id number] Implanted:Qty: 1 on 03/16/2023 by Irving Iyer MD at OR [facility] [employer] [id number] 05/18/2024 [id number] / / [id number] Duraclip 16mm Xlg Repostn - [id number] Implanted:Qty: 1 on 03/16/2023 by Irving Iyer MD at OR [facility] [employer] [id number] 05/18/2024 [id number] / / [id number] documented as of this encounter Visit Diagnoses [...] ONCE PRN Other, Hypersensitivity Reaction, Starting on Thu07/04/24 at 0953, Until Thu07/05/24 at 0952, For 24 hours EPINEPHrine 1 MG/ML inj 0.3 mg 0.3 mg, Intramuscular, ONCE PRN Other, Hypersensitivity Reaction or Anaphylaxis, Starting on Thu07/04/24 at 0953, Until Thu07/05/24 at 0952, For 24 hours Hydrocortisone Sod Suc (PF) (Solu-Cortef) inj 100 mg 100 mg, IV Push, ONCE PRN Other, Hypersensitivity Reaction, Starting on Thu07/04/24 at 0953, Until Thu07/05/24 at 0952, For 24 hours meperidine (Demerol) 25 MG/ML inj 25 mg 25 mg, IV Push, ONCE PRN Shivering, Starting on Thu07/04/24 at 0953, Until Discontinued oxygen GAS Inhalation, OXYGEN, First dose on Thu07/04/24 at 1030, Until Discontinued, Device/Managed by: Low Flow Device, [...] Right Lower Daratumumab-hyaluronidase- fihj (Darzalex Faspro) 1800 mg-80797 units/ 15 ml subcut inj 15 mL, [...] mg documented in this encounter Care Teams Business Integration Analyst Relationship Specialty Start Date End Date Jean Claude Yao DO [address] [place] [address] PCP - General Internal Medicine 05/09/24 documented as of this encounter
--- OUTSIDE RECORDS SUMMARY | 2024-07-27 10:41 | External Medical Summary ---
Author Name Unknown Address Unknown Organization K09:[facility] [place] [place] [address] Laboratory Report Ordering Provider Test Date Status CARLENE PEREZ 07/07/2024 08:01:24 Final Observation Date Value Abnormality Reference (Units ) Status WBC, Total 07/07/2024 08:01:24 5.10 4.00-10.8 0 (K/uL) Final RBC 07/07/2024 08:01:24 2.81 4.50-5.25 (M/uL) Final Hemoglobin 07/07/2024 08:01:24 9.7 Below low normal 14 .0-16.8 (g/dL) Final HCT 07/07/2024 08:01:24 29.9 Below low normal 40. 0-48.4 (%) Final MCV 07/07/2024 08:01:24 106.4 82.0-99.5 (fL) Final MCH 07/07/2024 08:01:24 34.5 27.0-34.0 (pg) Final MCHC 07/07/2024 08:01:24 32.4 32.0-36.0 (g/dL) Final RDW 07/07/2024 08:01:24 14.9 11.5-15.5 (%) Final Platelets 07/07/2024 08:01:24 125 Below low normal 140 -400 (K/uL) Final MPV 07/07/2024 08:01:24 8.9 6.6-11.1 ( fL) Final Performing Location [facility] [place] [place] [address]
--- OUTSIDE RECORDS SUMMARY | 2024-07-27 10:41 | External Medical Summary ---
Author Name Unknown Address Unknown Organization K09:[facility] [place] [address] Laboratory Report Ordering Provider Test Date Status CARLENE PEREZ 07/07/2024 08:01:24 Final Observation Date Value Abnormality Reference (Units ) Status SYNC LEUKOCYTES IN BLOOD BY AUTOMATED COUNT 07/07/2024 08:01:24 5.10 4.00-10.80 (K/uL) Final Segs 07/07/2024 08:01:24 53.7 40.0-75.0 (%) Final Lymphs % 07/07/2024 08:01:24 30.4 18.0-42.0 (%) Final Monos 07/07/2024 08:01:24 15.5 Above high normal 1.0-11.0 (%) Final Eosinophils 07/07/2024 08:01:24 0.2 0.0-6.0 (%) Final Basos 07/07/2024 08:01:24 0.2 0.0-2.0 (%) Final Absolute Segs 07/07/2024 08:01:24 2.74 1.80-7.70 (K/uL) Final Lymphs, absolute 07/07/2024 08:01:24 1.55 1.00-4.80 (K/ul) Final Monos, Abs 07/07/2024 08:01:24 0.79 0.00-1.10 (K/uL) Final Eos, Abs 07/07/2024 08:01:24 0.01 0.00-0.70 (K/uL) Final Basos, Abs 07/07/2024 08:01:24 0.01 0.00-0.20 (K/uL) Final Performing Location [facility] [place] [address]
--- OUTSIDE RECORDS SUMMARY | 2024-07-27 10:41 | External Medical Summary | Summary of Care ---
Author Name Unknown Organization [facility] Address [address] [place] [address] Phone [phone] Care Team Providers Care Escrow Manager Name Role Phone Jean Claude Yao DO Primary Care Provider [phone] Reason for Visit * Reason Comments Outpatient Testing Encounter Details Date Type Department Care Team (Late st Contact Info) Description 07/11/2024 7:50 AM EDT Laboratory Laboratory [facility] [place] [address] [place] [address] [place], Lab [facility] 200 [facility] [place] [address] Multiple myeloma not having achieved remission (HCC) [...] AM EDT Hem/Onc Treatment Hematology/Oncolog y Treatment, [place] [address] [place] [phone] Laure, Chair [address] Hem On[address] [place] [address] Arrived 07/19/2024 8:30 AM EDT Laboratory Laboratory [place] Laure [place] [address] [place] [phone] Laure Lab [facility] [address] [place] [address] 07/19/2024 9:00 AM EDT Pharmacy Pharmacy Hematology Oncology [address] [address] [facility] Hem/Onc [facility] [place] [address] 07/19/2024 9:30 AM EDT Hem/Onc Treatment Hematology/Oncolog y Treatment, [place] 200 [place] [address] Laure, Chair 8 Hem Onc Scenery [address] [place] [address] 07/22/2024 7:50 AM EDT Laboratory Laboratory Scenery [place] [address] [place] [address] Laure, Lab Scenery [address] [place] [address] 07/22/2024 9:00 AM EDT Hem/Onc Treatment Hematology/Oncolog y Treatment, [place] 200 [place] [address] Laure, Chair 6 Hem Onc Scenery [address] [place] [address] 07/25/2024 8:00 AM EDT Laboratory Laboratory [facility] [place] [address] [place] [address] Laure, Lab Scenery [address] [place] [address] 07/25/2024 9:00 AM EDT Hem/Onc Treatment Hematology/Oncolog y Treatment, [place] 200 [place] [address] Laure, Chair 3 Hem Onc Scenery [address] [place] [address] 07/28/2024 8:00 AM EDT Laboratory Laboratory [facility] [place] [address] [place] [address] Laure, Lab Scenery [address] [place] [address] 07/28/2024 9:00 AM EDT Hem/Onc Treatment Hematology/Oncolog y Treatment, [address] [place] [phone] Park, Chair 6 Hem Onc Scenery [address] [place], [place] [address] 08/01/2024 7:20 AM EDT Laboratory Laboratory [facility] [place] [address] [place], [place] [phone] Laure, Lab Scenery [address] [place], [place] [address] 08/01/2024 8:00 AM EDT Office Visit Hematology[facility]colog [facility] [address] [place], [place] [phone] Abbey Aguiar MD [address] [place], [place] [address] 08/01/2024 8:30 AM EDT Hem/Onc Treatment Hematology/Oncolog y Treatment, [place] [address] [place], [place] [phone] Laure, Chair 5 Hem Onc Scenery [address] [place], [place] [address] 08/23/2024 10:00 AM EDT Office Visit Family Practice [address], [place] 293 [facility] [place] [address] Jean Claude Yao, [address] [facility] [address] 09/08/2024 2:30 PM EDT Hospital Encounter ENDO [facility], Endoscopy Room [facility] [address] [facility] [place] [phone] Irving Iyer MD [address] [facility] [place] [address] 09/08/2024 2:30 PM EDT - 09/08/2024 3:00 PM EDT Surgery ENDO [facility], Endoscopy Room O[facility] [address] [place] [phone] Irving Iyer MD [address] [place] [address] COLONOSCOPY FLEXIBLE PROXIMAL DIAGNOSTIC 03/13/2025 11:00 AM EDT Office Visit Sleep Disorders Ctr [facility] [address] [place] [phone] Ruma Orellana DO [address] [place] [address] Pending Results Name Type Priority Associated Diagnoses Date /Time CBC WITH WBC DIFFERENTIAL Lab STAT Multiple myeloma not having achieved remission (HCC) 07/11/2024 7:48 AM EDT COMPREHENSIVE METABOLIC PANEL Lab STAT Multiple myeloma not having achieved remission (HCC) 07/11/2024 7:48 AM EDT CBC Lab STAT Multiple myeloma not having achieved remission (HCC) 07/11/2024 7:48 AM EDT DIFFERENTIAL, AUTOMATED Lab STAT Multiple myeloma not having achieved remission (HCC) 07/11/2024 7:48 AM EDT Scheduled Procedures Name Priority Associated [...] 12/09/2022, 12/0 11/2011 CKD PHOS USE SMARTSET 27272 06/15/2024 06/15/2023 Colonoscopy 06/29/2024 06/29/2023, 06/16, 03/16/2023, Additional history exists Colorectal Cancer Screening 06/29/2024 Influenza Vaccine (FLU shot) (#1) 2024 08/03/2023, 08/08/2022 HbA1c 09/29/2024 03/29/2024, 11/2022, 06/15/2023 Depression Screening 09/30/2024 09/30/2023 GFR 01/07/2025 07/07/2024, 06/16, 06/29/2024, Additional history exists Diabetic Eye Exam 01/20/2025 01/21/2024, , 05/26/2022 Diabetic Foot Exam 04/12/2025 04/12/2024, 04/12/2024 Albumin/Creatinine Ratio 05/09/2025 024, 06/15/2023, 06/03/2022 CKD HGB USE SMARTSET 11670 07/07/202507/07, 07/07/2024, 07/04/2024, Additional history exists DTaP,Tdap,and [...] this encounter Medical Devices Implanted Type Area Vocational Aide Device Identifier Shelf Expiration Date Model / Serial / Lot Sureclip 16mm 235cm - [id number] Implanted:Qty: 1 on 03/16/2023 by Irving Iyer MD at OR [facility] MICRO TECH ENDOSCOPY [id number] 05/19/2025 [id number] / / [id number] Duraclip 16mm Xlg Repostn - [id number] Implanted:Qty: 1 on 03/16/2023 by Irving Iyer MD at OR [facility] [employer] [id number] 05/18/2024 [id number] / / [id number] Duraclip 16mm Xlg Repostn - [id number] Implanted:Qty: 1 on 03/16/2023 by Irving Iyer MD at OR [facility] [employer] [id number] 05/18/2024 [id number] / / [id number] Duraclip 16mm Xlg Repostn - [id number] Implanted:Qty: 1 on 03/16/2023 by Irving Iyer MD at OR [facility] [employer] [id number] 05/18/2024 [id number] / / [id number] Duraclip 16mm Xlg Repostn - [id number] Implanted:Qty: 1 on 03/16/2023 by Irving Iyer MD at OR [facility] [employer] [id number] 05/18/2024 [id number] / / [id number] Duraclip 16mm Xlg Repostn - [id number] Implanted:Qty: 1 on 03/16/2023 by Irving Iyer MD at OR [facility] [employer] [id number] 05/18/2024 [id number] / / [id number] Duraclip 16mm Xlg Repostn - [id number] Implanted:Qty: 1 on 03/16/2023 by Irving Iyer MD at OR [facility] [employer] [id number] 05/19/2024 [id number] / / [id number] Duraclip 16mm Xlg Repostn - [id number] Implanted:Qty: 1 on 03/16/2023 by Irving Iyer MD at OR [facility] [employer] [id number] 05/19/2024 [id number] / / [id number] Duraclip 16mm Xlg Repostn - [id number] Implanted:Qty: 1 on 03/16/2023 by Irving Iyer MD at OR [facility] [employer] [id number] 05/19/2024 [id number] / / [id number] Duraclip 16mm Xlg Repostn - [id number] Implanted:Qty: 1 on 03/16/2023 by Irving Iyer MD at OR [facility] [employer] [id number] 05/18/2024 [id number] / / [id number] Duraclip 16mm Xlg Repostn - [id number] Implanted:Qty: 1 on 03/16/2023 by Irving Iyer MD at OR [facility] [employer] [id number] 05/18/2024 [id number] / / [id number] Duraclip 16mm Xlg Repostn - [id number] Implanted:Qty: 1 on 03/16/2023 by Irving Iyer MD at OR [facility] [employer] [id number] 05/18/2024 [id number] / / [id number] Duraclip 16mm Xlg Repostn - [id number] Implanted:Qty: 1 on 03/16/2023 by Irving Iyer MD at OR [facility] [employer] [id number] 05/18/2024 [id number] / / [id number] Duraclip 16mm Xlg Repostn - [id number] Implanted:Qty: 1 on 03/16/2023 by Irving Iyer MD at OR [facility] [employer] [id number] 05/18/2024 [id number] / / [id number] documented as of this encounter Visit Diagnoses Diagnosis Multiple myeloma not having achieved remission (HCC) Multiple myeloma, without mention of having achieved remission History of colonic polyps Personal history of colonic polyps documented in this encounter Care Teams Escrow Manager Relationship Specialty Start Date End Date Jean Claude Yao DO [address] [place] [address] PCP - General Internal Medicine 05/09/24 documented as of this encounter
--- OUTSIDE RECORDS SUMMARY | 2024-07-27 10:42 | External Medical Summary ---
Author Name Unknown Address Unknown Organization K01:[facility] - [facility] [place] [address] Laboratory Report Ordering Provider Test Date Status CARLENE PEREZ 07/04/2024 08:22:41 Final Observation Date Value Abnormality Reference (Units ) Status Glassmanor light chains, Free, Serum 07/04/2024 08:22:41 9.67 3.30-19.40 (mg/L) Final Lambda light chains, free, Serum 07/04/2024 08:22:41 29.65 Above high normal 5.71-26.30 (mg/L) Final KAPPA LAMBDA FLC RATIO 07/04/2024 08:22:41 0.33 0.26-1.65 Final Performing Location [facility] - [address] [place] [address]
--- OUTSIDE RECORDS SUMMARY | 2024-07-27 10:42 | External Medical Summary ---
Author Name Unknown Address Unknown Organization K09:[facility] [place] [address] Laboratory Report Ordering Provider Test Date Status CARLENE PEREZ 07/04/2024 08:22:41 Final Observation Date Value Abnormality Reference (Units ) Status Nucleated erythrocytes/100 leukocytes [Ratio] in Blood by Automated count 07/04/2024 08:22:41 Final Performing Location [facility] [place] [address]
--- OUTSIDE RECORDS SUMMARY | 2024-07-27 10:42 | External Medical Summary ---
Author Name Unknown Address Unknown Organization K09:[facility] [address] Laboratory Report Ordering Provider Test Date Status CARLENE PEREZ 07/04/2024 08:22:41 Final Observation Date Value Abnormality Reference (Units ) Status SYNC LEUKOCYTES IN BLOOD BY AUTOMATED COUNT 07/04/2024 08:22:41 1.95 Below low normal 4.00-10.80 (K/uL) Final Segs 07/04/2024 08:22:41 55.4 40.0-75.0 (%) Final Lymphs % 07/04/2024 08:22:41 26.2 18.0-42.0 (%) Final Monos 07/04/2024 08:22:41 12.8 Above high normal 1.0-11.0 (%) Final Eosinophils 07/04/2024 08:22:41 5.1 0.0-6.0 (%) Final Basos 07/04/2024 08:22:41 0.5 0.0-2.0 (%) Final Absolute Segs 07/04/2024 08:22:41 1.08 Below low normal 1.80-7.70 (K/uL) Final Lymphs, absolute 07/04/2024 08:22:41 0.51 Below low normal 1.00-4.80 (K/ul) Final Monos, Abs 07/04/2024 08:22:41 0.25 0.00-1.10 (K/uL) Final Eos, Abs 07/04/2024 08:22:41 0.10 0.00-0.70 (K/uL) Final Basos, Abs 07/04/2024 08:22:41 0.01 0.00-0.20 (K/uL) Final Performing Location [facility] [place] [address]
--- OUTSIDE RECORDS SUMMARY | 2024-07-27 10:42 | External Medical Summary ---
Author Name Unknown Address Unknown Organization K09[facility] [place] [address] Laboratory Report Ordering Provider Test Date Status CARLENE PEREZ 07/04/2024 08:22:41 Final Observation Date Value Abnormality Reference (Units ) Status WBC, Total 07/04/2024 08:22:41 1.95 Below low normal 4. 00-10.80 (K/uL) Final RBC 07/04/2024 08:22:41 2.67 4.50-5.25 (M/uL) Final Hemoglobin 07/04/2024 08:22:41 9.3 Below low normal 14 .0-16.8 (g/dL) Final HCT 07/04/2024 08:22:41 28.0 Below low normal 40. 0-48.4 (%) Final MCV 07/04/2024 08:22:41 104.9 82.0-99.5 (fL) Final MCH 07/04/2024 08:22:41 34.8 27.0-34.0 (pg) Final MCHC 07/04/2024 08:22:41 33.2 32.0-36.0 (g/dL) Final RDW 07/04/2024 08:22:41 14.3 11.5-15.5 (%) Final Platelets 07/04/2024 08:22:41 123 Below low normal 140 -400 (K/uL) Final Results rechecked.
null MPV 07/04/2024 08:22:41 9.9 6.6-11.1 ( fL) Final Performing Location [facility] [place] [address]
--- OUTSIDE RECORDS SUMMARY | 2024-07-27 10:42 | External Medical Summary | Summary of Care ---
Author Name Unknown Organization [facility] Address [address] [place] [address] Phone [phone] Care Team Providers Care Interventional Radiologist Name Role Phone Jean Claude Yao DO Primary Care Provider [phone] Reason for Visit * Reason Comments Outpatient Testing Encounter Details Date Type Department Care Team (Late st Contact Info) Description 06/29/2024 8:20 AM EDT Laboratory Laboratory [facility] [place] [address] [place] [address] [place], [place] [facility] [place] [address] [facility] [place] [address] Multiple myeloma not having achieved remission (HCC) Allergies No known active allergiesdocumented as of this encounter (statuses as of 06/29/2024) Medications Medication Sig Dispensed Refills Start Date [...] DOSE DIRECTED 10 Tablet 3 03/26/2024 Active dexAMETHasone 4 MG Oral Tablet (Decadron)Indicat ions:Smoldering [...] 7 DAYS OFF 14 Capsule 06/24/2024 Active levoFLOXacin 500 MG Oral Tablet (Levaquin)Indicat ions:Multiple myeloma not having achieved remission (HCC) Take 1 Tablet by mouth in the morning. 14 Tablet 1 06/27/2024 Active documented as of this encounter (statuses as of 06/29/2024) Active Problems Problem Noted Date Diagnosed Date [...] as of this encounter (statuses as of 06/29/2024) Resolved Problems Problem Noted Date Diagnosed Date Resolved Date Prediabetes 10/26/2023 12/31/2023 Overview: Per Prediabetes protocol Hypertensive kidney disease with stage 3a chronic kidney disease 07/02/2023 03/29/2024 Lesion of pancreas 12/09/2022 documented as of this encounter (statuses as of 06/29/2024) Immunizations Name Administration Dates Next Due COVID-19 [...] 18 years and over) Not on file 11/15/202 3 Are you (or your family) paul [...] Department Care Team (Latest Contact Info) Description 06/29/2024 9:00 AM EDT Office Visit Hematology/Oncolog y Kelli [facility]sey [place] [address] [place] [phone] Abbey Aguiar MD [address] [place] [address] Arrived 07/04/2024 7:50 AM EDT Laboratory Laboratory [facility] Bhardwaj [address] [place] [phone] [place], Lab Kelli [address] [facility] [place] [address] 07/04/2024 9:00 AM EDT Hem/Onc Treatment Hematology/Oncolog y Domenico [place] [address] [place] [phone] [place], Chair [address] [place] [address] [address] 07/04/2024 9:00 AM EDT Pharmacy Pharmacy Hematology Oncology [facility] [address] [place] [address] [facility] [place]Onc [address] [place] [facility] [place] [address] 07/07/2024 8:00 AM EDT Laboratory Laboratory [facility] [place] [address] [place], [place] [address] [place], Lab Scenery [address] [place] [address] 07/07/2024 9:00 AM EDT Hem/Onc Treatment Hematology/Oncolog y Treatment, [place] [address] [facility], [place] [address] Laure, Chair 6 Hem Onc Scenery [address] [place], [place] [address] 07/11/2024 7:50 AM EDT Laboratory Laboratory Scenery Laure [place] [address] [place], [place] [address] [place], Lab Scenery [address] [place], [place] [address] 07/11/2024 9:00 AM EDT Hem/Onc Treatment Hematology/Oncolog y Treatment, [place] [address] [facility], [place] [address] Laure, Chair 10 Hem Onc Scenery [address] [place] [address] 07/14/2024 9:00 AM EDT Hem/Onc Treatment Hematology/Oncolog y Treatment, [place] [address] [place] [address] Laure, Chair 6 Hem Onc Scenery [address] [place], [place] [address] 07/19/2024 8:30 AM EDT Laboratory Laboratory Scenery Laure [place] [address] [place], [place] [address] [place], Lab Scenery [address] [place] [address] 07/19/2024 9:30 AM EDT Hem/Onc Treatment Hematology/Oncolog y Treatment, [place] [address] [place] [address] Laure, Chair 8 Hem Onc Scenery [address] [place] [address] 07/22/2024 9:00 AM EDT Hem/Onc Treatment Hematology/Oncolog y Treatment, [place] [address] [place] [address] Laure, Chair 6 Hem Onc Scenery [address] [place], [place] [address] 07/25/2024 8:00 AM EDT Laboratory Laboratory Scenery Laure [place] [address] [place], [place] [phone] [place], Lab Scenery [address] [place] [address] 07/25/2024 9:00 AM EDT Hem/Onc Treatment Hematology/Oncolog y Treatment, [place] [address] [place] [address] Laure, Chair 3 Hem Onc Scenery [address] [place] [address] 08/01/2024 8:00 AM EDT Laboratory Laboratory Scenery Laure [place] [address] [place] [address] [place], Lab Scenery [address] [place] [address] 08/01/2024 8:30 AM EDT Office Visit Hematology/Oncolog y Scenery Laure [place] [address] [place], [place] [address] Radha Torres CRNP [address] [place], [place] [address] [address] 08/01/2024 9:00 AM EDT Hem/Onc Treatment Hematology/Oncolog y Treatment, [place] [address] [place], [place] [phone] Laure, Chair 5 Hem Onc Scenery [address] [place] [address] 08/23/2024 10:00 AM EDT Office Visit Family Practice [address] [facility], [place] [address] [facility], [place] [address] Jean Claude Yao, [address] [facility], [place] [address] 09/08/2024 2:30 PM EDT Hospital Encounter ENDO [facility], Endoscopy Room [facility] [address] [place] [phone] Irving Iyer MD [address] [place] [address] 09/08/2024 2:30 PM EDT - 09/08/2024 3:00 PM EDT Surgery [facility], Endoscopy Room [facility] [address] [place] [phone] Irving Iyer MD [address] [place] [address] COLONOSCOPY FLEXIBLE PROXIMAL DIAGNOSTIC 03/13/2025 11:00 AM EDT Office Visit Sleep Disorders Ctr [facility] [address] [place] [phone] Ruma Orellana DO [address] [place] [address] Pending Results Name Type Priority Associated Diagnoses Date /Time CBC WITH WBC DIFFERENTIAL Lab STAT Multiple myeloma not having achieved remission (HCC) 06/29/2024 8:29 AM EDT COMPREHENSIVE METABOLIC PANEL Lab STAT Multiple myeloma not having achieved remission (HCC) 06/29/2024 8:29 AM EDT CBC Lab STAT Multiple myeloma not having achieved remission (HCC) 06/29/2024 8:29 AM EDT DIFFERENTIAL, AUTOMATED Lab STAT Multiple myeloma not having achieved remission (HCC) 06/29/2024 8:29 AM EDT Scheduled Procedures Name Priority [...] 02/03/2023 12/09/2022, 1211/2011 CKD PHOS USE SMARTSET 31946 06/15/2024 06/15/2023 Colonoscopy 06/29/2024 06/29/2023, 06/16, 03/16/2023, Additional history exists Colorectal Cancer Screening 06/29/2024 Influenza Vaccine (FLU shot) (#1) 2024 08/03/2023, 08/08/2022 HbA1c 09/29/2024 03/29/2024, 1211/2022, 06/15/2023 Depression Screening 09/30/2024 09/30/2023 GFR 12/28/2024 06/27/2024, 0803/2024, 06/07/2024, Additional history exists Diabetic Eye Exam 01/20/2025 01/21/2024, , 05/26/2022 Diabetic Foot Exam 04/12/2025 04/12/2024, 04/12/2024 Albumin/Creatinine Ratio 05/09/202505/09/2 024, 06/15/2023, 06/03/2022 CKD HGB USE SMARTSET 43958 06/27/202506/27, 06/27/2024, 06/20/2024, Additional history exists DTaP,Tdap,and Td Vaccines (3 [...] this encounter Medical Devices Implanted Type Area Apiarist Device Identifier Shelf Expiration Date Model / Serial / Lot Sureclip 16mm 235cm - [id number] Implanted:Qty: 1 on 03/16/2023 by Irving Iyer MD at OR [facility] [employer] ENDOSCOPY [id number] 05/19/2025 [id number] / / [id number] Duraclip 16mm Xlg Repostn - [id number] Implanted:Qty: 1 on 03/16/2023 by Irving Iyer MD at OR [facility] [employer] [id number] 05/18/2024 [id number] / / [id number] Duraclip 16mm Xlg Repostn - [id number] Implanted:Qty: 1 on 03/16/2023 by Irving Iyer MD at OR [facility] [employer] [id number] 05/18/2024 [id number] / / [id number] Duraclip 16mm Xlg Repostn - [id number] Implanted:Qty: 1 on 03/16/2023 by Irving Iyer MD at OR [facility] [employer] [id number] 05/18/2024 [id number] / / [id number] Duraclip 16mm Xlg Repostn - [id number] Implanted:Qty: 1 on 03/16/2023 by Irving Iyer MD at OR [facility] [employer] [id number] 05/18/2024 [id number] / / [id number] Duraclip 16mm Xlg Repostn - [id number] Implanted:Qty: 1 on 03/16/2023 by Irving Iyer MD at OR [facility] [employer] [id number] 05/18/2024 [id number] / / [id number] Duraclip 16mm Xlg Repostn - [id number] Implanted:Qty: 1 on 03/16/2023 by Irving Iyer MD at OR [facility] [employer] [id number] 05/19/2024 [id number] / / [id number] Duraclip 16mm Xlg Repostn - [id number] Implanted:Qty: 1 on 03/16/2023 by Irving Iyer MD at OR [facility] [employer] [id number] 05/19/2024 [id number] / / [id number] Duraclip 16mm Xlg Repostn - [id number] Implanted:Qty: 1 on 03/16/2023 by Irving Iyer MD at OR [facility] [employer] [id number] 05/19/2024 [id number] / / [id number] Duraclip 16mm Xlg Repostn - [id number] Implanted:Qty: 1 on 03/16/2023 by Irving Iyer MD at OR [facility] [employer] [id number] 05/18/2024 [id number] / / [id number] Duraclip 16mm Xlg Repostn - [id number] Implanted:Qty: 1 on 03/16/2023 by Irving Iyer MD at OR [facility] [employer] [id number] 05/18/2024 [id number] / / [id number] Duraclip 16mm Xlg Repostn - [id number] Implanted:Qty: 1 on 03/16/2023 by Irving Iyer MD at OR [facility] [employer] [id number] 05/18/2024 [id number] / / [id number] Duraclip 16mm Xlg Repostn - [id number] Implanted:Qty: 1 on 03/16/2023 by Irving Iyer MD at OR [facility] [employer] [id number] 05/18/2024 [id number] / / [id number] Duraclip 16mm Xlg Repostn - [id number] Implanted:Qty: 1 on 03/16/2023 by Irving Iyer MD at OR [facility] [employer] [id number] 05/18/2024 [id number] / / [id number] documented as of this encounter Visit Diagnoses Diagnosis Multiple myeloma not having achieved remission (HCC) Multiple myeloma, without mention of having achieved remission History of colonic polyps Personal history of colonic polyps documented in this encounter Care Teams Interventional Radiologist Relationship Specialty Start Date End Date Jean Claude Yao DO [address] [place] [address] PCP - General Internal Medicine 05/09/24 documented as of this encounter
--- OUTSIDE RECORDS SUMMARY | 2024-07-27 10:42 | External Medical Summary ---
Author Name Unknown Address Unknown Organization K01:[facility] [address] [place] [address] Laboratory Report Ordering Provider Test Date Status CARLENE PEREZ 07/04/2024 08:22:41 Final Observation Date Value Abnormality Reference (Units ) Status IgG 07/04/2024 08:22:41 1968 Above high normal 70 0-1600 (mg/dL) Final IgA 07/04/2024 08:22:41 20 Below low normal 70- 400 (mg/dL) Final IgM 07/04/2024 08:22:41 13 Below low normal 40- 230 (mg/dL) Final Performing Location [facility] [address] [place] [address]
--- OUTSIDE RECORDS SUMMARY | 2024-07-27 10:42 | External Medical Summary ---
Author Name Unknown Address Unknown Organization K01:[facility] [address] [place] [address] Laboratory Report Ordering Provider Test Date Status FRACISCO COREA 07/04/2024 08:22:41 Final Observation Date Value Abnormality Reference (Units ) Status MYCODE SPECIMEN-SST 07/04/2024 08:22:41 Freezing of extracted DNA, whole blood and/or serum. Final Performing Location [facility] - [address] [place] [address]
--- OUTSIDE RECORDS SUMMARY | 2024-07-27 10:42 | External Medical Summary ---
Author Name Unknown Address Unknown Organization K01:[facility] [address] [place] [address] Laboratory Report Ordering Provider Test Date Status FRACISCO COREA 07/04/2024 08:22:41 Final Observation Date Value Abnormality Reference (Units ) Status MYCODE SPECIMEN-SST 07/04/2024 08:22:41 Freezing of extracted DNA, whole blood and/or serum. Final Performing Location [facility] - [address] [place] [address]
--- OUTSIDE RECORDS SUMMARY | 2024-07-27 10:42 | External Medical Summary | Summary of Care ---
Author Name Unknown Organization [facility] Address [address] [place] [address] Phone [phone] Care Team Providers Care General Assistant Name Role Phone Jean Claude Yao DO Primary Care Provider [phone] Reason for Visit * Reason Comments Medication Management Encounter Details Date Type Department Care Team (Late st Contact Info) Description 07/04/2024 9:00 AM EDT Pharmacy Pharmacy Hematology Oncology [facility] [address], [place] [id number] [facility], [facility] Clinic Hem/Onc [address] [place] [address] Smoldering multiple myeloma (SMM)* Allergies No known [...] this encounter Progress Notes * Alejandrina Steele, [facility] - 07/04/2024 9:41 AM EDT MEDICATION THERAPY MANAGEMENT LENALIDOMIDE TREATMENT PROGRESS NOTE Jeff Martin [phone] Patient Phone Numbers : Brenna Rosenberg Lab: [address] [place] [address] Specialty Pharmacy: [facility] Communication: Chart review Treatment: Medication: Lenalidomide (Revlimid) 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 Aguiar Additional Therapy: Dexamethasone 20mg weekly [...] 06/05 - 06/18 C13 HELD 06/26 C14 07/24 - 08/13 (anticipated) Treatment History: None Dose adjustment / medication hold: 06/30/23-07/11/23: lenalidomide on HOLD due to cytopenias 06/2023: lenalidomide dose reduced to 15mg due to cytopenias C3 and C5 delayed due to neutropenia C13 held due to grade 3/4 neutropenia Interval History: Lenalidomide RX sent to pharmacy 05/27/24 Per OV 06/01/24, treatment changed to DaraVRd Per TE 06/02/24 addendum 06/06/24, daratumumab and bortezomib require qhxb-ex-plub for insurance approval Per OV 06/29/24, pt to HOLD lenalidomide for C13 Changes to medication list since last visit? No Assessment and Plan: ANC improving to grade 2 neutropenia Per PI, no dose adjustment recommended for ANC > 1000 Will monitor closely PLT improving to grade 1 thrombocytopenia Per PI, no dose adjustment recommended for PLT < 50K Will monitor closely All other labs stable Continue to HOLD lenalidomide for this cycle MTM to follow up with repeat labs 07/19 to assess neutropenic and thrombocytopenic recovery and potential for lenalidomide restart Assessment of compliance: compliant Assessment of adverse effects attributed to drug therapy: N/A Dose adjustment needed based on lab or adverse drug reaction? No, continue to HOLD Follow up: 07/19 Alejandrina Steele, PharmD, BCOP Clinical Pharmacist, [facility] Oral Chemotherapy [facility] 07/04/2024, 9:45 AM Monitoring Parameters: Estimated CrCl Serum creatinine: 1.4 mg/dL (H) 07/04/24 0822 Estimated creatinine clearance: 52.3 mL/min (A) Hepatitis panel Latest Reference Range [...] Pertinent labs: Latest Reference Range & Units 06/27/24 08:02 06/29/24 08:29 07/04/24 08:22 WBC 4.00 - 10.80 K/uL 2.16 (L) 1.80 (L) 1.95 (L) RBC 4.50 - 5.25 M/uL 2.75 2.78 2.67 HGB 14.0 - 16.8 g/dL 9.5 (L) 9.6 (L) 9.3 (L) HCT 40.0 - 48.4 % 29.0 (L) 29.2 (L) 28.0 (L) MCV 82.0 - 99.5 fL 105.5 105.0 104.9 MCH 27.0 - 34.0 pg 34.5 34.5 34.8 MCHC 32.0 - 36.0 g/dL 32.8 32.9 33.2 RDW 11.5 - 15.5 % 13.8 14.3 14.3 PLT 140 - 400 K/uL 58 (L) 63 (L) 123 (L) MPV 6.6 - 11.1 fL 12.0 10.7 9.9 CBC WITH WBC DIFFERENTIAL Rpt ! Rpt ! Rpt ! Absolute Neutrophils 1.80 - 7.70 K/uL 0.59 (L) 0.84 (L) 1.08 (L) Absolute Lymphocytes 1.00 - 4.80 K/ul 0.70 (L) 0.45 (L) 0.51 (L) Latest Reference Range & Units 06/27/24 08:02 06/29/24 08:29 07/04/24 08:22 Albumin 3.8 - 5.0 g/dL 3.2 (L) 3.4 (L) 3.3 (L) AST 10 - 50 U/L 9 (L) 11 12 ALT 10 - 50 U/L 17 14 13 Alkaline Phosphatase 35 - 130 U/L 80 85 87 Bilirubin, Total <=1.2 mg/dL 0.5 0.5 0.4 Time Spent on Encounter: 6 - 10 minutes Encounter Group: Hematology Encounter Interventions Item Category: Oral Chemotherapy Lenalidomide Problem/Rationale: Safety: Needs additional monitoring - Medication Requires monitoring Pharmacist Intervention(s): Lab monitoring and Medication held Magnitude of Intervention: Monitoring with no interventions (Level 0) documented in this encounter Plan of Treatment Upcoming Encounters Date Type Department Care Team (Latest Contact Info) Description 07/07/2024 8:00 AM EDT Laboratory Laboratory [facility] [place] [address] [place], [place] [phone] Laure, Lab Scenery 200 [facility] [place], [place] [address] 07/07/2024 9:00 AM EDT Hem/Onc Treatment Hematology/Oncolog y Treatment, [address], [place] [address] Laure, Chair 6 Hem Onc Scenery 200 [facility] [place], [place] [address] 07/11/2024 7:50 AM EDT Laboratory Laboratory [facility] [place] [address] [place], [place] [address] Laure, Lab Scenery [address] [place], [place] [address] 07/11/2024 9:00 AM EDT Hem/Onc Treatment Hematology/Oncolog y Treatment, [address] [place] [address] Laure, Chair 10 Hem Onc Scenery 200 [facility] [place] [address] 07/14/2024 9:00 AM EDT Hem/Onc Treatment Hematology/Oncolog y Treatment, [place] [address] [place] [address] Laure, Chair 6 Hem Onc Scenery [address] [place] [address] 07/19/2024 8:30 AM EDT Laboratory Laboratory Scenery Laure [place] [address] [place], [place] [address] Laure, Lab Scenery [address] [place], [place] [address] 07/19/2024 9:00 AM EDT Pharmacy Pharmacy Hematology Oncology [facility] [address] [place] [address] [facility], [facility] Hem/Onc [address] [place] [address] 07/19/2024 9:30 AM EDT Hem/Onc Treatment Hematology/Oncolog y Treatment, [place] [address] [facility], [place] [address] Laure, Chair 8 Hem Onc Scenery [address] [place], [place] [address] 07/22/2024 9:00 AM EDT Hem/Onc Treatment Hematology/Oncolog y Treatment, [place] [address] [facility], [place] [address] Laure, Chair 6 Hem Onc Scenery [address] [place], [place] [address] 07/25/2024 8:00 AM EDT Laboratory Laboratory [facility] [place] [address] [place] [address] Laure, Lab Scenery [address] [place] [address] 07/25/2024 9:00 AM EDT Hem/Onc Treatment Hematology/Oncolog y Treatment, [place] [address] [facility], [place] [address] Laure, Chair 3 Hem Onc Scenery [address] [place] [address] 08/01/2024 7:20 AM EDT Laboratory Laboratory [place], [place] [address] [place], [place] [phone] Laure, Lab Scenery [address] [place], [place] [address] 08/01/2024 8:00 AM EDT Office Visit Hematology/Oncolog y Scenery [place] [address] [place], [place] [phone] Abbey Aguiar MD [address] [place], [place] [address] 08/01/2024 8:30 AM EDT Hem/Onc Treatment Hematology/Oncolog y [facility] [address] [place], [place] [phone] Laure, Chair 5 Hem Onc Scenery [address] [place], [place] [address] 08/23/2024 10:00 AM EDT Office Visit Family Practice [address] [place] [address] [place] [address] Jean Claude Yao, [address] [place] [address] 09/08/2024 2:30 PM EDT Hospital Encounter ENDO O[facility], Endoscopy Room [facility] [address] [place] [phone] Irving Iyer MD [address] [place] [address] 09/08/2024 2:30 PM EDT - 09/08/2024 3:00 PM EDT Surgery ENDO O[facility], Endoscopy Room [facility] [address] [place] [phone] Irving Iyer MD [address] [place] [address] COLONOSCOPY FLEXIBLE PROXIMAL DIAGNOSTIC 03/13/2025 11:00 AM EDT Office Visit Sleep Disorders Ctr [facility] [address] [place] [address] Ruma Orellana, [address] [place] [address] Scheduled Procedures Name Priority Associated Diagnoses Date/Ti me COLONOSCOPY FLEXIBLE PROXIMAL DIAGNOSTIC Recall History of colonic polyps 09/08/2024 2:30 PM EDT Health Maintenance Due Date Last Done Comments Cologuard 1997 Fecal Occult Blood Test 1997 Sigmoidoscopy 1997 Adult Wellness Visit 2018 COVID-19 Vaccine (3 - Moderna risk series) 04/19/2021 03/22/2021, 02/21/2021 Zoster Vaccines (2 of 2) 02/03/2023 12/09/2022, 1211/2011 CKD PHOS USE SMARTSET 22136 06/15/2024 06/15/2023 Colonoscopy 06/29/2024 06/29/2023, 06/16, 03/16/2023, Additional history exists Colorectal Cancer Screening 06/29/2024 Influenza Vaccine (FLU shot) (#1) 2024 08/03/2023, 08/08/2022 HbA1c 09/29/2024 03/29/2024, 1211/2022, 06/15/2023 Depression Screening 09/30/2024 09/30/2023 GFR 01/04/2025 07/04/2024, 06/16, 06/27/2024, Additional history exists Diabetic Eye Exam 01/20/2025 01/21/2024, , 05/26/2022 Diabetic Foot Exam 04/12/2025 04/12/2024, 04/12/2024 Albumin/Creatinine Ratio 05/09/2025 06/2 024, 06/15/2023, 06/03/2022 CKD HGB USE SMARTSET 91681 07/04/202507/04, 07/04/2024, 06/29/2024, Additional history exists DTaP,Tdap,and [...] encounter Medical Devices Implanted Type Area Automotive Collision Estimator Device Identifier Shelf Expiration Date Model / Serial / Lot Sureclip 16mm 235cm - [id number] Implanted:Qty: 1 on 03/16/2023 by Irving Iyer MD at OR [facility] MICRO TECH ENDOSCOPY [id number] 05/19/2025 [id number] / / [id number] Duraclip 16mm Xlg Repostn - [id number] Implanted:Qty: 1 on 03/16/2023 by Irving Iyer MD at OR [facility] [employer] PH[employer]IP [id number] 05/18/2024 [id number] / / [id number] Duraclip 16mm Xlg Repostn - [id number] Implanted:Qty: 1 on 03/16/2023 by Irving Iyer MD at OR [facility] CONMED PHILLIP [id number] 05/18/2024 [id number] / / [id number] Duraclip 16mm Xlg Repostn - [id number] Implanted:Qty: 1 on 03/16/2023 by Irving Iyer MD at OR [facility] [employer] [id number] 05/18/2024 [id number] / / [id number] Duraclip 16mm Xlg Repostn - [id number] Implanted:Qty: 1 on 03/16/2023 by Irving Iyer MD at OR [facility] [employer]IP [id number] 05/18/2024 [id number] / / [id number] Duraclip 16mm Xlg Repostn - [id number] Implanted:Qty: 1 on 03/16/2023 by Irving Iyer MD at OR [facility] [employer] [id number] 05/18/2024 [id number] / / [id number] Duraclip 16mm Xlg Repostn - [id number] Implanted:Qty: 1 on 03/16/2023 by Irving Iyer MD at OR [facility] [employer] [id number] 05/19/2024 [id number] / / [id number] Duraclip 16mm Xlg Repostn - [id number] Implanted:Qty: 1 on 03/16/2023 by Irving Iyer MD at OR [facility] [employer] [id number] 05/19/2024 [id number] / / [id number] Duraclip 16mm Xlg Repostn - [id number] Implanted:Qty: 1 on 03/16/2023 by Irving Iyer MD at OR [facility] [employer]IP [id number] 05/19/2024 [id number] / / [id number] Duraclip 16mm Xlg Repostn - [id number] Implanted:Qty: 1 on 03/16/2023 by Irving Iyer MD at OR [facility] [employer] [id number] 05/18/2024 [id number] / / [id number] Duraclip 16mm Xlg Repostn - [id number] Implanted:Qty: 1 on 03/16/2023 by Irving Iyer MD at OR [facility] [employer] [id number] 05/18/2024 [id number] / / [id number] Duraclip 16mm Xlg Repostn - [id number] Implanted:Qty: 1 on 03/16/2023 by Irving Iyer MD at OR [facility] [employer] [id number] 05/18/2024 [id number] / / [id number] Duraclip 16mm Xlg Repostn - [id number] Implanted:Qty: 1 on 03/16/2023 by Irving Iyer MD at OR [facility] [employer]IP [id number] 05/18/2024 [id number] / / [id number] Duraclip 16mm Xlg Repostn - [id number] Implanted:Qty: 1 on 03/16/2023 by Irving Iyer MD at OR [facility] [employer] [id number] 05/18/2024 [id number] / / [id number] documented as of this encounter Visit Diagnoses Diagnosis Smoldering multiple myeloma (SMM)- Primary Multiple myeloma, without mention of having achieved remission History of colonic polyps Personal history of colonic polyps documented in this encounter Care Teams General Assistant Relationship Specialty Start Date End Date Jean Claude Yao DO [address] [place] [address] PCP - General Internal Medicine 05/09/24 documented as of this encounter
--- OUTSIDE RECORDS SUMMARY | 2024-07-27 10:42 | External Medical Summary | Summary of Care ---
Author Name Unknown Organization [facility] Address [address] [place] [address] Phone [phone] Care Team Providers Care Automobile Washer Steam Name Role Phone Jean Claude Yao DO Primary Care Provider [phone] Reason for Visit * Reason Comments Chemotherapy C1 D8 Darzalex Faspr o/ velcade * Episode Based Medications (Routine) - Authorized Specialty Diagnoses / Procedures Referred By Contpreston t Referred To Contact Diagnoses Multiple myeloma not having achieved remission (HCC) Encounter for antineoplastic chemotherapy Procedures IL DARATUMUMAB, HYALURONIDASE [place] INJECTION, BORTEZOMIB, 0.1MG Abbey Aguiar MD [address] [facility] [place] [address] Anc Hem/Onc [facility] Laure [address] [place] [phone] Referral ID Status Reason Start Date Expiration Date V isits Requested Visits Authorized [id number] Authorized 06/03/2024 06/03/[phone] Encounter Details Date Type Department Care Team (Latest Contact Info) Description 07/04/2024 9:00 AM EDT Hem/Onc Treatment Hematology/Oncolog y Treatment, [address] [address] Laure, Chair [address] [place] [place] [address] Multiple myeloma not having achieved remission [...] Description 07/07/2024 8:00 AM EDT Laboratory Laboratory [facility] [place] [address] [place] [phone] Laure, Lab Scenery 200 [facility] [place] [address] 07/07/2024 9:00 AM EDT Hem/Onc Treatment Hematology/Oncolog y Treatment, [address] [place] [phone] Laure, Chair 6 Hem Onc [facility] [address] [place] [address] 07/11/2024 7:50 AM EDT Laboratory Laboratory [facility] Laure [place] [address] [place] [address] [place] [address] Laure, Lab Scenery [address] [place] [address] 07/11/2024 9:00 AM EDT Hem/Onc Treatment Hematology/Oncolog y Treatment, [place] 200 [facility] [place] [address] Laure, Chair 10 Hem Onc Scenery 200 [facility] [place] [address] 07/19/2024 8:30 AM EDT Laboratory Laboratory [facility] Laure [place] [address] [place], [place] [phone] Laure, Lab Scenery [address] [place], [place] [address] 07/19/2024 9:00 AM EDT Pharmacy Pharmacy Hematology Oncology [facility] [address] [place] [address] [facility], [facility] Hem/Onc [address] [place] [address] 07/19/2024 9:30 AM EDT Hem/Onc Treatment Hematology/Oncolog y Treatment, [place] 200 [facility], [place] [address] Laure, Chair 8 Hem Onc Scenery [address] [place] [address] 07/22/2024 7:50 AM EDT Laboratory Laboratory Kelli Kelsey [place] [address] [place] [phone] Laure Lab Scenery [address] [place] [place], [place] [address] 07/22/2024 9:00 AM EDT Hem/Onc Treatment Hematology/Oncolog y Treatment, [place] 200 [facility], [place] [address] Laure, Chair 6 Hem Onc Scenery [address] [place] [address] 07/25/2024 8:00 AM EDT Laboratory Laboratory Kelli Kelsey [place] [address] [place], [place] [phone] Laure, Lab Scenery [address] [place], [place] [address] 07/25/2024 9:00 AM EDT Hem/Onc Treatment Hematology/Oncolog y Treatment, [place] [address] [place] [address] Laure, Chair 3 Hem Onc Scenery [address] [place], [place] [address] 07/28/2024 8:00 AM EDT Laboratory Laboratory [facility] [place] [address] [place], [place] [address] Laure, Lab Scenery [address] [place], [place] [address] 07/28/2024 9:00 AM EDT Hem/Onc Treatment Hematology/Oncolog y Treatment, [place] 200 [facility], [place] [address] Laure, Chair 6 Hem Onc Scenery [address] [place], [place] [address] 08/01/2024 7:20 AM EDT Laboratory Laboratory Scenery [place] [address] [place], [place] [phone] Laure, Lab Scenery [address] [place], [place] [address] 08/01/2024 8:00 AM EDT Office Visit Hematology/Oncolog y Scenery Laure [place] [address] [place], [place] [address] Abbey Aguiar MD [address] [place], [place] [address] 08/01/2024 8:30 AM EDT Hem/Onc Treatment Hematology/Oncolog y Treatment, [place] 200 [place] [address] Laure, Chair 5 Hem Onc Scenery [address] [place], [place] [address] 08/23/2024 10:00 AM EDT Office Visit Family Practice [address] [facility], [place] [address] [facility] [place] [phone] Jean Claude Yao, DO [address] [place] [address] 09/08/2024 2:30 PM EDT Hospital Encounter ENDO [facility], Endoscopy Room [facility] [address] [place] [phone] Irving Iyer MD [address] [place] [address] 09/08/2024 2:30 PM EDT - 09/08/2024 3:00 PM EDT Surgery ENDO [facility], Endoscopy Room [facility] [address] [place] [phone] Irving Iyer MD [address] [place] [address] COLONOSCOPY FLEXIBLE PROXIMAL DIAGNOSTIC 03/13/2025 11:00 AM EDT Office Visit Sleep Disorders Ctr [facility] [address] [place] [phone] Ruma Orellana DO [address] [place] [address] Scheduled Procedures Name Priority Associated Diagnoses Date/Ti [...] 12/09/2022, 12/0 11/2011 CKD PHOS USE SMARTSET 69109 06/15/2024 06/15/2023 Colonoscopy 06/29/2024 06/29/2023, 06/16, 03/16/2023, Additional history exists Colorectal Cancer Screening 06/29/2024 Influenza Vaccine (FLU shot) (#1) 2024 08/03/2023, 08/08/2022 HbA1c 09/29/2024 03/29/2024, 11/2022, 06/15/2023 Depression Screening 09/30/2024 09/30/2023 GFR 01/04/2025 07/04/2024, 06/16, 06/27/2024, Additional history exists Diabetic Eye Exam 01/20/2025 01/21/2024, , 05/26/2022 Diabetic Foot Exam 04/12/2025 04/12/2024, 04/12/2024 Albumin/Creatinine Ratio 05/09/2025 024, 06/15/2023, 06/03/2022 CKD HGB USE SMARTSET 78836 07/04/202507/04, 07/04/2024, 06/29/2024, Additional history exists DTaP,Tdap,and [...] this encounter Medical Devices Implanted Type Area Senior Scheduler Device Identifier Shelf Expiration Date Model / Serial / Lot Sureclip 16mm 235cm - [id number] Implanted:Qty: 1 on 03/16/2023 by Irving Iyer MD at OR [facility] MICRO TECH ENDOSCOPY [id number] 05/19/2025 [id number] / / [id number] Duraclip 16mm Xlg Repostn - [id number] Implanted:Qty: 1 on 03/16/2023 by Irving Iyer MD at OR [facility] [employer] [id number] 05/18/2024 [id number] / / [id number] Duraclip 16mm Xlg Repostn - [id number] Implanted:Qty: 1 on 03/16/2023 by Irving Iyer MD at OR [facility] [employer] [id number] 05/18/2024 [id number] / / [id number] Duraclip 16mm Xlg Repostn - [id number] Implanted:Qty: 1 on 03/16/2023 by Irving Iyer MD at OR [facility] [employer] [id number] 05/18/2024 [id number] / / [id number] Duraclip 16mm Xlg Repostn - [id number] Implanted:Qty: 1 on 03/16/2023 by Irving Iyer MD at OR [facility] [employer] [id number] 05/18/2024 [id number] / / [id number] Duraclip 16mm Xlg Repostn - [id number] Implanted:Qty: 1 on 03/16/2023 by Irving Iyer MD at OR [facility] [employer] [id number] 05/18/2024 [id number] / / [id number] Duraclip 16mm Xlg Repostn - [id number] Implanted:Qty: 1 on 03/16/2023 by Irving Iyer MD at OR [facility] [employer] [id number] 05/19/2024 [id number] / / [id number] Duraclip 16mm Xlg Repostn - [id number] Implanted:Qty: 1 on 03/16/2023 by Irving Iyer MD at OR [facility] [employer] [id number] 05/19/2024 [id number] / / [id number] Duraclip 16mm Xlg Repostn - [id number] Implanted:Qty: 1 on 03/16/2023 by Irving Iyer MD at OR [facility] Celery [id number] 05/19/2024 [id number] / / [id number] Duraclip 16mm Xlg Repostn - [id number] Implanted:Qty: 1 on 03/16/2023 by Irving Iyer MD at OR [facility] Cel[employer] [id number] 05/18/2024 [id number] / / [id number] Duraclip 16mm Xlg Repostn - [id number] Implanted:Qty: 1 on 03/16/2023 by Irving Iyer MD at OR [facility] Celery [id number] 05/18/2024 [id number] / / [id number] Duraclip 16mm Xlg Repostn - [id number] Implanted:Qty: 1 on 03/16/2023 by Irving Iyer MD at OR [facility] Celery [id number] 05/18/2024 [id number] / / [id number] Duraclip 16mm Xlg Repostn - [id number] Implanted:Qty: 1 on 03/16/2023 by Irving Iyer MD at OR [facility] Celery [id number] 05/18/2024 [id number] / / [id number] Duraclip 16mm Xlg Repostn - [id number] Implanted:Qty: 1 on 03/16/2023 by Irving Iyer MD at OR [facility] Celery [id number] 05/18/2024 [id number] / / [id number] documented as of this encounter Visit Diagnoses [...] Right Lower Daratumumab-hyaluronidase- fihj (Darzalex Faspro) 1800 mg-55616 units/ 15 ml subcut inj 15 mL, [...] mg documented in this encounter Care Teams Automobile Washer Steam Relationship Specialty Start Date End Date Jean Claude Yao DO [address] [place] [address] PCP - General Internal Medicine 05/09/24 documented as of this encounter
--- OUTSIDE RECORDS SUMMARY | 2024-07-27 10:42 | External Medical Summary ---
Author Name Unknown Address Unknown Organization K01:[facility] [place] - [address] [place] [address] Laboratory Report Ordering Provider Test Date Status FRACISCO COREA 07/04/2024 08:22:41 Final Observation Date Value Abnormality Reference (Units ) Status AVIcodeGELY SPECIMEN-LAV 07/04/2024 08:22:41 Freezing of extracted DNA, whole blood and/or serum. Final Performing Location [facility] - [address] [place] [address]
--- OUTSIDE RECORDS SUMMARY | 2024-07-27 10:42 | External Medical Summary | Summary of Care ---
Author Name Unknown Organization [facility] Address [address] [place] [address] Phone [phone] Care Team Providers Care Teacher Tutor Name Role Phone Jean Claude Yao DO Primary Care Provider Reason for Visit * Reason Comments Outpatient Testing Encounter Details Date Type Department Care Team (Late st Contact Info) Description 07/04/2024 7:50 AM EDT Laboratory Laboratory [facility] [place] [address] [place] [address] [place], Lab Scenery [address] [place] [address] Multiple myeloma not having achieved remission (HCC); MyCode Research Other*[id number] Allergies No known active allergiesdocumented as of [...] AM EDT Hem/Onc Treatment Hematology/Oncolog y Treatment, [place] [address] [place] [address] Laure, Chair 10 Hem Onc [facility] [address] [place] [address] Arrived 07/04/2024 9:00 AM EDT Pharmacy Pharmacy Hematology Oncology [facility] [address] [place] [address] [facility], [facility] Hem/Onc [address] [place] [address] 07/07/2024 8:00 AM EDT Laboratory Laboratory Kelli Kelsey [place] [address] [place] [phone] Pratima Kelsey [facility] [address] [place] [address] 07/07/2024 9:00 AM EDT Hem/Onc Treatment Hematology/Oncolog y Treatment, [place] [address] [place] [address] Laure, Chair 6 Hem Onc Scenery [address] [place] [address] 07/11/2024 7:50 AM EDT Laboratory Laboratory Scenery [facility] [address] [place] [address] Laure, Lab Scenery [address] [place] [address] 07/11/2024 9:00 AM EDT Hem/Onc Treatment Hematology/Oncolog y Treatment, [place] [address] [place] [address] Laure, Chair 10 Hem Onc Scenery [address] [place] [address] 07/14/2024 9:00 AM EDT Hem/Onc Treatment Hematology/Oncolog y Treatment, [place] [address] [place] [address] Laure, Chair 6 Hem Onc Scenery [address] [place] [address] 07/19/2024 8:30 AM EDT Laboratory Laboratory [facility] [place] [address] [place] [address] Laure, Lab Scenery [address] [place] [address] 07/19/2024 9:30 AM EDT Hem/Onc Treatment Hematology/Oncolog y Treatment, [place] [address] [place] [address] Laure, Chair 8 Hem Onc Scenery [address] [place] [address] 07/22/2024 9:00 AM EDT Hem/Onc Treatment Hematology/Oncolog y Treatment, [place] [address] [place] [address] Park, Chair 6 Hem Onc Scenery [address] [place], [place] [address] 07/25/2024 8:00 AM EDT Laboratory Laboratory Scenery Red[place] [address] [place], [place] [address] Laure, Lab Scenery [address] [place], [place] [address] 07/25/2024 9:00 AM EDT Hem/Onc Treatment Hematology/Oncolog y Treatment, [place] [address] [facility], [place] [address] Laure, Chair 3 Hem Onc Scenery [address] [place], [place] [address] 08/01/2024 7:20 AM EDT Laboratory Laboratory [facility] [place] [address] [place], [place] [phone] Laure, Lab Scenery [address] [place], [place] [address] 08/01/2024 8:00 AM EDT Office Visit Hematology/Oncolog y Shamekary Red[place] [address] [place], [place] [phone] Abbey Aguiar MD [address] [place], [place] [address] 08/01/2024 8:30 AM EDT Hem/Onc Treatment Hematology/Oncolog y [facility], [place] [address] [place] [address] Laure, Chair 5 Hem Onc Scenery [address] [place], [place] [address] 08/23/2024 10:00 AM EDT Office Visit Family Practice [address] [facility], [place] [address] [place] [address] Jean Claude Yao, DO [address] [place] [address] 09/08/2024 2:30 PM EDT Hospital Encounter ENDO OSSC, Endoscopy Room [facility] [address] [place] [phone] Irving Iyer MD [address] [place] [address] 09/08/2024 2:30 PM EDT - 09/08/2024 3:00 PM EDT Surgery ENDO OSS, Endoscopy Room [facility] [address] [place] [phone] Irving Iyer MD [address] [place] [address] COLONOSCOPY FLEXIBLE PROXIMAL DIAGNOSTIC 03/13/2025 11:00 AM EDT Office Visit Sleep Disorders Ctr [facility] [address] [place] [phone] Ruma Orellana, [address] [place] [address] Pending Results Name Type Priority Associated Diagnoses Date /Time CBC WITH WBC DIFFERENTIAL Lab STAT Multiple myeloma not having achieved remission (HCC) 07/04/2024 8:22 AM EDT COMPREHENSIVE METABOLIC PANEL Lab STAT Multiple myeloma not having achieved remission (HCC) 07/04/2024 8:22 AM EDT SERUM FREE LIGHT CHAINS Lab STAT Multiple myeloma not having achieved remission (HCC) 07/04/2024 8:22 AM EDT SERUM PROTEIN ELECTROPHORESIS REFLEX PROFILE Lab STAT Multiple myeloma not having achieved remission (HCC) 07/04/2024 8:22 AM EDT IMMUNOGLOBULIN QUANTITATIVE Lab STAT Multiple myeloma not having achieved remission (HCC) 07/04/2024 8:22 AM EDT MYCODE INITIAL ADULT Lab Routine MyCode Research Other*[id number] 07/04/2024 8:22 AM EDT CBC Lab STAT Multiple myeloma not having achieved remission (HCC) 07/04/2024 8:22 AM EDT DIFFERENTIAL, AUTOMATED Lab STAT Multiple myeloma not having achieved remission (HCC) 07/04/2024 8:22 AM EDT MYCODE INITIAL ADULT-PINK Lab Routine My[employer] Research Other*[id number] 07/04/2024 8:22 AM EDT MYCODE SST1 Lab Routine [employer] Research Other*[id number] 07/04/2024 8:22 AM EDT MYCODE SST2 Lab Routine My[employer] Research Other*[id number] 07/04/2024 8:22 AM EDT Scheduled Procedures Name Priority Associated [...] 12/09/2022, 12/0 11/2011 CKD PHOS USE SMARTSET 37489 06/15/2024 06/15/2023 Colonoscopy 06/29/2024 06/29/2023, 0802/2023, 03/16/2023, Additional history exists Colorectal Cancer Screening 06/29/2024 Influenza Vaccine (FLU shot) (#1) 2024 08/03/2023, 08/08/2022 HbA1c 09/29/2024 03/29/2024, 12/0 11/2022, 06/15/2023 Depression Screening 09/30/2024 09/30/2023 GFR 12/30/2024 06/29/2024, 0812/2023, 06/20/2024, Additional history exists Diabetic Eye Exam 01/20/2025 01/21/2024, , 05/26/2022 Diabetic Foot Exam 04/12/2025 04/12/2024, 04/12/2024 Albumin/Creatinine Ratio 05/09/202505/09/2 024, 06/15/2023, 06/03/2022 CKD HGB USE SMARTSET 73670 06/29/202506/29, 06/29/2024, 06/27/2024, Additional history exists DTaP,Tdap,and Td Vaccines (3 [...] this encounter Medical Devices Implanted Type Area Tooth Cutter Contact Wheel Device Identifier Shelf Expiration Date Model / Serial / Lot Sureclip 16mm 235cm - [id number] Implanted:Qty: 1 on 03/16/2023 by Irving Iyer MD at OR [facility] MICRO TECH ENDOSCOPY [id number] 05/19/2025 [id number] / / [id number] Duraclip 16mm Xlg Repostn - [id number] Implanted:Qty: 1 on 03/16/2023 by Irving Iyer MD at OR [facility] videof.me [id number] 05/18/2024 [id number] / / [id number] Duraclip 16mm Xlg Repostn - [id number] Implanted:Qty: 1 on 03/16/2023 by Irving Iyer MD at OR [facility] videof.me [id number] 05/18/2024 [id number] / / [id number] Duraclip 16mm Xlg Repostn - [id number] Implanted:Qty: 1 on 03/16/2023 by Irving Iyer MD at OR [facility] videof.me [id number] 05/18/2024 [id number] / / [id number] Duraclip 16mm Xlg Repostn - [id number] Implanted:Qty: 1 on 03/16/2023 by Irving Iyer MD at OR [facility] CONMED PHILLIP [id number] 05/18/2024 [id number] / / [id number] Duraclip 16mm Xlg Repostn - [id number] Implanted:Qty: 1 on 03/16/2023 by Irving Iyer MD at OR [facility] [employer] [id number] 05/18/2024 [id number] / / [id number] Duraclip 16mm Xlg Repostn - [id number] Implanted:Qty: 1 on 03/16/2023 by Irving Iyer MD at OR [facility] [employer] [id number] 05/19/2024 [id number] / / [id number] Duraclip 16mm Xlg Repostn - [id number] Implanted:Qty: 1 on 03/16/2023 by Irving Iyer MD at OR [facility] [employer] [id number] 05/19/2024 [id number] / / [id number] Duraclip 16mm Xlg Repostn - [id number] Implanted:Qty: 1 on 03/16/2023 by Irving Iyer MD at OR [facility] [employer]IP [id number] 05/19/2024 [id number] / / [id number] Duraclip 16mm Xlg Repostn - [id number] Implanted:Qty: 1 on 03/16/2023 by Irving Iyer MD at OR [facility] [employer] [id number] 05/18/2024 [id number] / / [id number] Duraclip 16mm Xlg Repostn - [id number] Implanted:Qty: 1 on 03/16/2023 by Irving Iyer MD at OR [facility] [employer] [id number] 05/18/2024 [id number] / / [id number] Duraclip 16mm Xlg Repostn - [id number] Implanted:Qty: 1 on 03/16/2023 by Irving Iyer MD at OR [facility] [employer] [id number] 05/18/2024 [id number] / / [id number] Duraclip 16mm Xlg Repostn - [id number] Implanted:Qty: 1 on 03/16/2023 by Irving Iyer MD at OR [facility] [employer] [id number] 05/18/2024 [id number] / / [id number] Duraclip 16mm Xlg Repostn - [id number] Implanted:Qty: 1 on 03/16/2023 by Irving Iyer MD at OR [facility] [employer] [id number] 05/18/2024 [id number] / / [id number] documented as of this encounter Visit Diagnoses Diagnosis Multiple myeloma not having achieved remission (HCC) Multiple myeloma, without mention of having achieved remission MyCode Research Other*[id number] History of colonic polyps Personal history of colonic polyps documented in this encounter Care Teams Teacher Tutor Relationship Specialty Start Date End Date Jean Claude Yao DO [address] [facility] [place] [address] PCP - General Internal Medicine 05/09/24 documented as of this encounter
--- OUTSIDE RECORDS SUMMARY | 2024-07-27 10:42 | External Medical Summary ---
Author Name Unknown Address Unknown Organization K01:[facility] [place] [address] [facility] [address] Laboratory Report Ordering Provider Test Date Status CARLENE PEREZ 07/04/2024 08:22:41 Final Observation Date Value Abnormality Reference (Units) Status PARAPROTEIN NORMAL/ABNORMAL 07/04/2024 08:22:41 Abnormal Abnormal Normal Final Protein 07/04/2024 08:22:41 6.5 6.0-8.3 (g/dL) Final Albumin/Protein.total [Pure mass fraction] in Serum or Plasma by Electrophoresis 07/04/2024 08:22:41 2.75 Below low normal 3.30-4.40 (g/dL) Final Alpha 1 globulin/Protein.tota l [Pure mass fraction] in Serum or Plasma by Electrophoresis 07/04/2024 08:22:41 0.21 0.10-0.30 (g/dL) Final Alpha 2 globulin/Protein.tota l [Pure mass fraction] in Serum or Plasma by Electrophoresis 07/04/2024 08:22:41 0.89 0.60-1.00 (g/dL) Final Beta globulin/Protein.tota l [Pure mass fraction] in Serum or Plasma by Electrophoresis 07/04/2024 08:22:41 0.91 0.80-1.30 (g/dL) Final Gamma globulin/Protein.tota l [Pure mass fraction] in Serum or Plasma by Electrophoresis 07/04/2024 08:22:41 1.73 Above high normal 0.70-1.70 (g/dL) Final Monoclonal protein 07/04/2024 08:22:41 1.49 (g/dL) Final Protein Fractions [Interpretation] in Serum or Plasma by Electrophoresis Narrative 07/04/2024 08:22:41 Abnormal. 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 Final Performing Location LABORATORY [facility] - [address] [facility] [address]
--- OUTSIDE RECORDS SUMMARY | 2024-07-27 10:42 | External Medical Summary ---
Author Name Unknown Address Unknown Organization K09:[facility] [address] [place] [address] Laboratory Report Ordering Provider Test Date Status CARLENE PEREZ 07/04/2024 08:22:41 Final Observation Date Value Abnormality Reference (Units ) Status BUN 07/04/2024 08:22:41 17 6-20 (mg/dL) Final Creatinine 07/04/2024 08:22:41 1.4 Above high normal 0.6-1.2 (mg/dL) Final Glomerular filtration rate/1.73 sq M.predicted [Volume Rate/Area] in Serum, Plasma or Blood by Creatinine-based formula (CKD-EPI) 07/04/2024 08:22:41 52 Below low normal >=60 (mL/min) Final eGFR is calculated based on the CKD-EPI 2020 equation. Sodium 07/04/2024 08:22:41 141 135-146 (m mol/L) Final Potassium 07/04/2024 08:22:41 4.4 3.5-5.1 (m mol/L) Final Cl 07/04/2024 08:22:41 108 Above high normal 98 -107 (mmol/L) Final CO2 07/04/2024 08:22:41 25 22-32 (mmo l/L) Final Anion gap 07/04/2024 08:22:41 8 7-15 (mmol /L) Final Glucose 07/04/2024 08:22:41 122 Above high normal 70 -120 (mg/dL) Final Albumin 07/04/2024 08:22:41 3.3 Below low normal 3.8 -5.0 (g/dL) Final AST (Aspartate aminotransferase) 07/04/2024 08:22:41 12 10-50 (U/L) Fin al Alk Phos 07/04/2024 08:22:41 87 35-130 (U/ L) Final Bilirubin, Total 07/04/2024 08:22:41 0.4 <=1 .2 (mg/dL) Final Calcium 07/04/2024 08:22:41 8.6 8.4-10.2 ( mg/dL) Final Protein 07/04/2024 08:22:41 7.1 6.0-8.3 (g /dL) Final ALT (Alanine aminotransferase) 07/04/2024 08:22:41 13 10-50 (U/L) Toby pruett Performing Location [facility] [address] [place] [address]
--- OUTSIDE RECORDS SUMMARY | 2024-07-27 10:42 | External Medical Summary ---
Author Name Unknown Address Unknown Organization K09:[facility] [place] [address] [place] [address] Laboratory Report Ordering Provider Test Date Status CARLENE PEREZ 06/29/2024 08:29:16 Final Observation Date Value Abnormality Reference (Units ) Status BUN 06/29/2024 08:29:16 17 6-20 (mg/dL) Final Creatinine 06/29/2024 08:29:16 1.4 Above high normal 0.6-1.2 (mg/dL) Final Glomerular filtration rate/1.73 sq M.predicted [Volume Rate/Area] in Serum, Plasma or Blood by Creatinine-based formula (CKD-EPI) 06/29/2024 08:29:16 52 Below low normal >=60 (mL/min) Final eGFR is calculated based on the CKD-EPI 2020 equation. Sodium 06/29/2024 08:29:16 140 135-146 (m mol/L) Final Potassium 06/29/2024 08:29:16 4.0 3.5-5.1 (m mol/L) Final Cl 06/29/2024 08:29:16 105 98-107 (mm ol/L) Final CO2 06/29/2024 08:29:16 25 22-32 (mmo l/L) Final Anion gap 06/29/2024 08:29:16 10 7-15 (mmol /L) Final Glucose 06/29/2024 08:29:16 139 Above high normal 70 -120 (mg/dL) Final Albumin 06/29/2024 08:29:16 3.4 Below low normal 3.8 -5.0 (g/dL) Final AST (Aspartate aminotransferase) 06/29/2024 08:29:16 11 10-50 (U/L) Fin al Alk Phos 06/29/2024 08:29:16 85 35-130 (U/ L) Final Bilirubin, Total 06/29/2024 08:29:16 0.5 <=1 .2 (mg/dL) Final Calcium 06/29/2024 08:29:16 8.8 8.4-10.2 ( mg/dL) Final Protein 06/29/2024 08:29:16 7.8 6.0-8.3 (g /dL) Final ALT (Alanine aminotransferase) 06/29/2024 08:29:16 14 10-50 (U/L) Toby pruett Performing Location [facility] [place] [address] [place] [address]
--- OUTSIDE RECORDS SUMMARY | 2024-07-27 10:42 | External Medical Summary ---
Author Name Unknown Address Unknown Organization K09:[facility] [place] [address] [place] [address] Laboratory Report Ordering Provider Test Date Status CARLENE PEREZ 06/29/2024 08:29:16 Final Observation Date Value Abnormality Reference (Units ) Status Nucleated erythrocytes/100 leukocytes [Ratio] in Blood by Automated count 06/29/2024 08:29:16 Final Performing Location [facility] [place] [address] [place] [address]
--- OUTSIDE RECORDS SUMMARY | 2024-07-27 10:42 | External Medical Summary | Summary of Care ---
Author Name Unknown Organization [facility] Address [address] [place] [address] Phone [phone] Care Team Providers Care External Grinder Tool Name Role Phone Jean Claude Yao DO Primary Care Provider [phone] Reason for Visit * Reason Comments Follow Up Encounter Details Date Type Department Care Team (Late st Contact Info) Description 06/29/2024 9:00 AM EDT Office Visit Hematology/Oncology [facility] [place] [address] [facility] [place] [address] Abbey Aguiar MD [address] [facility] [place] [address] Multiple myeloma not having achieved remission (HCC)* [...] Sign Reading Time Taken Comments Blood Pressure 135/70 06/29/2024 8:45 AM EDT Pulse 68 06/29/2024 8:45 AM EDT Temperature 36.1 C (96.9 F) 06/29/2024 8:45 AM ED T Respiratory Rate - - Oxygen Saturation 98% 06/29/2024 8:45 AM EDT Inhaled Oxygen Concentration - - Weight 92.5 kg (204 lb) 06/29/2024 8:45 AM EDT Height - - Body Mass Index 27.66 05/27/2024 9:16 AM EDT documented in this encounter Progress Notes * Abbey Aguiar MD - 06/29/2024 8:40 AM EDT Images from the original note were not included. Outpatient Consult Note Data Source: Patient, Epic record. Data Source: Patient, Epic record. 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 - Patient has progression with increasing level of the immunoglobulin/light chain with increase in the plasma cells in the bone marrow (increased number of the plasma cells from 35% to 70% ) Current Treatment: Darzalex plus Revlimid plus Velcade and Decadron Previous Treatment: - Lenalidomide and Decadron, Started 06/07/2023 Oncologic History : 74 year old male with a history of hypertension, Obstructive Sleep Apnea on CPAP, and Pancreatic Cystic Lesion, CKD and contracture of palmar fascia was referred with above diagnosis. Patient has history of CKD for over 5 years. Recent blood test were done on 12/09/2022 which shows creatinine of 1.7 with rest of the electrolytes and LFTs were within normal limit. Calcium was normal. Repeat creatinine on 12/18/2022 was 1.3. Last CBC done on 05/27/2022 which shows WBC count 4.8, hemoglobin 12.2 and platelet count 122. Serum protein electrophoresis revealed presence of paraprotein and M spike was 2.33. IgG level was 3294, IgA was 55 and IgM was 26. Lambda free light chain was 673 and kappa was 14.3 with ratio of 47. Last MRI of the abdomen was done on 08/01/2022 which revealed 1.5 x 1.6 cm hemangioma in the left hepatic lobe, 0.7 x 1.8 cm lesion in the right hepatic lobe is possibly an hemangioma. It is difficult to characterize due to motion. If there is clinical concern, short-term follow-up can be obtained in 3-6 months, Scattered gallbladder adenomyomatosis. 4. 0.4 cm cystic lesion the pancreatic neck. Follow-up imaging can be obtained in 1 year, Left parapelvic cysts. Left pelvocaliectasis cannot be excluded. He denies smoking. He drinks 1-2 beer per week. Family history significant for sister was diagnosed with multiple myeloma. He had bone marrow biopsy and aspirate done 01/14/2023 which showed to 35% plasma cells. PET scan was negative for any bone disease or any other metastasis. Cytogenetics was normal and FISH revealed Gain of 1q, monosomy 13 and deletions of 14q and 16q. Diagnosis Bone marrow, left posterior iliac crest, aspirate, biopsy, clot, touch imprints: - Normocellular marrow for age (45% cellularity) involved by plasma cell neoplasm (33% plasma cellson aspirate and 35% on core biopsy). Peripheral blood: - No significant morphologic abnormalities. COMMENT: The morphologic and immunophenotypic findings are consistent with plasma cell neoplasm. Correlationwith clinical, laboratory, radiologic findings, and the pending cytogenetic and FISH analysis findings is recommended. The results of the latter analysis will be issued in an addendum Karyotype: 46,XY[20] Interpretation: NORMAL MALE KARYOTYPE Diagnosis Bone marrow, site not specified , aspirate, biopsy, clot, touch imprints: - Multiple myeloma (plasma cells comprise 70% of marrow cellularity by immunohistochemical stain); decreased maturing trilineage hematopoiesis. Peripheral blood: - Pancytopenia. Karyotype: 46,XY[20] Interpretation: NORMAL MALE KARYOTYPE Results: Abnormal Interpretation: INTERPRETATION SIGNAL PATTERN ABNORMALITY IDENTIFIED % CUTOFF 13q-/-13 Detected 1p32/1q21 Detected Chromosome 5 Not Detected Chromosome 9 Not Detected Chromosome 15 Not Detected p53 (17p13.1)/ NF1 (17q11) IgH (14q32) Rearrangement 1F Loss of IGH or chromosome 14/14q 10.7% 10.0% (Atypical) Gain of 1q and monosomy 13 are recurrent abnormalities in plasma cell myeloma. Loss of IGH or chromosome 14q has been reported in plasma cell myeloma. Gain of 1q is considered high risk in plasma cell myelomas. Interval History: He had neutropenia and flu symptoms with nasal congestion and sore throat. Currently he is on Levaquin with improvement in the symptoms. Overall clinically he is stable without any new symptoms complain. Denies any headache, fever, night sweats, chest pain palpitation, abdominal pain or distention,nausea, vomiting, bleeding, bruising. LABS/IMAGING: Results for orders placed or performed in visit on 06/27/24 COMPREHENSIVE METABOLIC PANEL Result Value Ref Range BUN 20 6 - 20 mg/dL Creatinine 1.4 (H) 0.6 - 1.2 mg/dL Estimated Glomerular Filtration Rate 53 (L) >=60 mL/min Sodium 137 135 - 146 mmol/L Potassium 4.0 3.5 - 5.1 mmol/L Chloride 105 98 - 107 mmol/L CO2 25 22 - 32 mmol/L Anion Gap 7 7 - 15 mmol/L Glucose 135 (H) 70 - 120 mg/dL Albumin 3.2 (L) 3.8 - 5.0 g/dL AST 9 (L) 10 - 50 U/L Alkaline Phosphatase 80 35 - 130 U/L Bilirubin, Total 0.5 <=1.2 mg/dL Calcium 8.7 8.4 - 10.2 mg/dL Protein 7.6 6.0 - 8.3 g/dL ALT 17 10 - 50 U/L CBC Result Value Ref Range WBC 2.16 (L) 4.00 - 10.80 K/uL RBC 2.75 4.50 - 5.25 M/uL HGB 9.5 (L) 14.0 - 16.8 g/dL HCT 29.0 (L) 40.0 - 48.4 % MCV 105.5 82.0 - 99.5 fL MCH 34.5 27.0 - 34.0 pg MCHC 32.8 32.0 - 36.0 g/dL RDW 13.8 11.5 - 15.5 % PLT 58 (L) 140 - 400 K/uL MPV 12.0 6.6 - 11.1 fL DIFFERENTIAL, AUTOMATED Result Value Ref Range WBC 2.16 (L) 4.00 - 10.80 K/uL Neutrophils % 27.3 (L) 40.0 - 75.0 % Lymphocytes % 32.4 18.0 - 42.0 % Monocytes % 18.5 (H) 1.0 - 11.0 % Eosinophils % 21.8 (H) 0.0 - 6.0 % Basophils % 0.0 0.0 - 2.0 % Absolute Neutrophils 0.59 (L) 1.80 - 7.70 K/uL Absolute Lymphocytes 0.70 (L) 1.00 - 4.80 K/ul Absolute Monocytes 0.40 0.00 - 1.10 K/uL Absolute Eosinophils 0.47 0.00 - 0.70 K/uL Absolute Basophils 0.00 0.00 - 0.20 K/uL DIFFERENTIAL, TECHNOLOGIST REVIEW Result Value Ref Range nRBCs Ovalocytes Moderate (A) None Seen There is improvement in the blood count but continues to be neutropenic. His ANC today is 840 and platelet count 17378. REVIEW OF SYSTEMS: General: No Fever, chills, night sweats, or weight loss. HEENT: No change in visual acuity, blurred or double vision. No epistaxis, facial pain, nasal discharge or change in hearing. Denies dysphagia, no muscosal ulceration, or sores noted. Cardiovascular: No chest pain, GREENE, or palpitations Respiratory: No shortness of breath, improving cough, No hemoptysis, or pleuritic chest pain Gastrointestinal: No abdominal pain, nausea, vomiting, diarrhea, rectal pain or bleeding Genitourinary: Denies Hematuria or dysuria Musculoskeletal: No bone pain Psychiatric: No vegetative signs of depression Endocrine: No symptoms of hypothyroidism or hyperglycemia Hematologic: No bleeding or lymph nodes noted As mentioned above, all of the systems were reviewed in full and are unremarkable. 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 Aspirin 81 MG Oral Tablet Delayed Release Take 1 Tablet by mouth in the morning. 30 Tablet 0 Polyethylene Glycol 3350 17 GM Oral Packet Take 1 Packet by mouth in the morning. (Patient not taking: Reported on 05/11/2024) Metamucil Free & Natural 43 % Oral Powder (Psyllium) Take by mouth. glipiZIDE ER 2.5 MG Oral Tablet Extended Release 24 Hour (Glucotrol XL) TAKE 1-2 TABLETS BY MOUTH WEEKLY WITH EACH DEXAMETHASONE DOSE DIRECTED 10 Tablet 3 dexAMETHasone 4 MG Oral Tablet (Decadron) Take 5 Tablets by mouth once a week. 20 Tablet 5 Acyclovir 400 MG Oral Tablet (Zovirax) Take 1 Tablet by mouth in the morning and 1 Tablet before bedtime. 60 Tablet 3 Lenalidomide 10 MG Oral Capsule (Revlimid) TAKE 1 CAPSULE BY MOUTH 1 TIME A DAY IN THE MORNING FOR 14 DAYS ON THEN 7 DAYS OFF 14 Capsule 0 levoFLOXacin 500 MG Oral Tablet (Levaquin) Take 1 Tablet by mouth in the morning. 14 Tablet 1 No current facility-administered medications for this visit. Social History Tobacco Use Smoking status: Former Current packs/day: 0.00 Types: Cigarettes Quit date: 1978 Years since quittin.6 Passive exposure: Past Smokeless tobacco: Never Vaping Use Vaping status: Never Used Substance Use Topics Alcohol use: Yes Comment: 1 beer every 2 weeks Drug use: Never Review of patient's allergies indicates: No Known Allergies PHYSICAL EXAMINATION: General Appearance: Healthy appearing patient in no acute distress There were no vitals taken for this visit. Vitals reviewed. HEENT: No oral or pharyngeal masses, ulceration or thrush noted, no sinus tenderness. Neck is supple with no thyromegaly or JVD noted. Lymph Nodes: No lymphadenopathy noted in the occipital, pre and post auricular, cervical, supra andinfraclavicular, axillary, epitrochlear, inguinal, and popliteal region. Lungs/Thorax: Clear to auscultation, no accessory muscles of respiration being used. Heart: Regular rate and rhythm, normal S1, S2 Abdomen: Soft, nontender, bowel sounds present, no appreciable hepatosplenomegaly, no palpable masses Extremeties: Good pulses bilaterally, no peripheral edema. ASSESSMENT: 74 year old male with a history of hypertension, Obstructive Sleep Apnea on CPAP, and Pancreatic Cystic Lesion, CKD and contracture of palmar fascia was referred because of the elevated lambda free light chain and IgG level. Clinically patient is doing well in excellent performance status. He had a further workup including bone marrow biopsy and aspirate which showed 35% plasma cells. FSH revealed to gain of 1q, monosomy 13 and deletion of 14q and 16q and cytogenetics were normal. 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 His risk of progression to multiple myeloma is very high. PETscan was negative for any bone disease. Currently he is receiving Revlimid and Decadron combination. The dose of Revlimid was decreased to 10 mg because of the bone marrow toxicity. He has been on this treatment since 06/07/2023. Because of the rising level of light chain and IgG immunoglobulin patient had follow-up bone marrowbiopsy done which unfortunately revealed increased number of the plasma cells from 35% to 70%. The rest of the plasma cell myeloma panel and cytogenetics results are pending. Patient has disease progression while treated for smoldering myeloma with increasing the plasma cells of the rising lambda light chain and IgG level. He is neutropenic with thrombocytopenia and currently the treatment is on hold. He is also on antibiotics with improvement in the cold symptoms and nasal congestion. He had issues with bone marrow recovery even with the Revlimid when he was treated for smoldering myeloma. Because of the neutropenia and thrombocytopenia, I will hold the Revlimid and will continue with rest of the treatment including Darzalex plus Velcade and Decadron. Discussed with the patient in detail about diagnosis prognosis reviewed all the available blood test result with them. After detailed discussion they agreed with the plan. PLAN: As above. He will return clinic for follow-up in 4 weeks with CBC, CMP and myeloma panel. We will hold the Revlimid from the next cycle of treatment and continue with rest of the treatment including Darzalex plus Velcade and Decadron. The patient voiced understanding of all of the above. All questions and concerns were addressed in an apparently satisfactory manner. Abbey Aguiar MD (This note was completed using the dictation program Fluency Direct. As such, there may be misspellings, word substitutions, or other variations that should not change the essence of the clinical content of this encounter note. If there is need for further clarification, please direct questions to me.) documented in this encounter Nursing Notes * Soraida Tavarez, MAGDA ASSIST - 06/29/2024 8:48 AM EDT Patient identifed by name and birthdate Do you have any concerns about pain management for today's visit? Yes. Patient instructed to discuss pain concerns with provider during the visit today Living Will or Advance Directive for Health Care as noted on the problem list. [facility] is a way you can talk to your provider on line through e-mail. Would you like to sign up? I can activate it for you? ALREADY ACTIVE Filed Vitals: 06/29/24 0845 BP: 135/70 Pulse: 68 Temp: 36.1 C (96.9 F) TempSrc: Tympanic SpO2: 98% Weight: 92.5 kg (204 lb) Patient was instructed to not get up on the exam table/exam chair until directed and assisted by their provider; patient is to remain seated in the chair/ wheelchair/ exam table/ exam chair for fall prevention and safety reasons. Patient is aware to have assistance to step down off exam table/exam chair with personnel. Patient voiced full comprehension of instructions. Pt reports lightheadedness and blood pressure was low when he was taking it at home. Here BP was normal. Experiencing fatigue documented in this encounter Plan of Treatment Upcoming Encounters Date Type Department Care Team (Latest Contact Info) Description 07/04/2024 7:50 AM EDT Laboratory Laboratory Kelli [place] [address] [place] [phone] Laure, Lab Scenery [address] Kelli [address]endo[address] [facility] [place] [address] 07/04/2024 9:00 AM EDT Hem/Onc Treatment Hematology/Oncolog y Treatment, [place] [address] [facility] [place] [phone] Laure, Chair 10 Hem Onc [facility] [address] [place] [address] [address] 07/04/2024 9:00 AM EDT Pharmacy Pharmacy Hematology Oncology [place] [address] [place] [address] [facility] Hem/Onc [address] [place] [address] 07/07/2024 8:00 AM EDT Laboratory Laboratory Sh[facility] [place] [address] [place] [phone] Laure, Lab Scenery [address] [place] [address] [address] 07/07/2024 9:00 AM EDT Hem/Onc Treatment Hematology/Oncolog y Treatment, [place] [address] [facility] [place] [phone] Laure, Chair 6 Hem Onc Sc[address] [place] [address] 07/11/2024 7:50 AM EDT Laboratory Laboratory Sc[place]ery [place] [address] [place] [address] Laure, Lab Scenery [address] [place] [address] 07/11/2024 9:00 AM EDT Hem/Onc Treatment Hematology/Oncolog y Treatment, [place] [address] [place] [address] Laure, Chair 10 Hem Onc Sc[address]ery [address] [place] [address] 07/14/2024 9:00 AM EDT Hem/Onc Treatment Hematology/Oncolog y Treatment, [place] [address] [place] [address] Laure, Chair 6 Hem Onc Sc[place] [place] [address] 07/19/2024 8:30 AM EDT Laboratory Laboratory [facility] [place] [address] [place] [address] Laure, Lab Scenery [address] [place] [address] 07/19/2024 9:30 AM EDT Hem/Onc Treatment Hematology/Oncolog y Treatment, [place] [address] [place] [address] Laure, Chair 8 Hem Onc Scenery [address] [place] [address] 07/22/2024 9:00 AM EDT Hem/Onc Treatment Hematology/Oncolog y Treatment, [place] [address] [place] [address] Laure, Chair 6 Hem Onc Scenery [address] [place] [address] 07/25/2024 8:00 AM EDT Laboratory Laboratory [facility] [place] [address] [place], [place] [phone] Laure, Lab Scenery [address] [place], [place] [address] 07/25/2024 9:00 AM EDT Hem/Onc Treatment Hematology/Oncolog y Treatment, [place] [address] [place], [place] [phone] Laure, Chair 3 Hem Onc Sc[place] [place], [place] [address] 08/01/2024 7:20 AM EDT Laboratory Laboratory [facility] [place] [address] [place], [place] [address] Laure, Lab Scenery [address] [place], [place] [address] 08/01/2024 8:00 AM EDT Office Visit Hematology/Oncolog y [facility] [place] [address] [place], [place] [phone] Abbey Aguiar MD [address] [place], [place] [address] 08/01/2024 8:30 AM EDT Hem/Onc Treatment Hematology/Oncolog y [facility], [place] [address] [facility], [place] [phone] Laure, Chair 5 Hem Onc Scenery [address] [place] [address] 08/23/2024 10:00 AM EDT Office Visit Family Practice [address], [place] [address] [facility] [place] [address] Jean Claude Yao DO [address] [place] [address] 09/08/2024 2:30 PM EDT Hospital Encounter ENDO [facility], Endoscopy Room [facility] [address] [place] [phone] Irving Iyer MD [address] [place] [address] 09/08/2024 2:30 PM EDT - 09/08/2024 3:00 PM EDT Surgery ENDO [facility], Endoscopy Room [facility] [address] [place] [address] Irving Iyer MD [address] [place] [address] COLONOSCOPY FLEXIBLE PROXIMAL DIAGNOSTIC 03/13/2025 11:00 AM EDT Office Visit Sleep Disorders Ctr [facility] [address] [place] [phone] Ruma Orellana DO [address] [place] [address] Scheduled Orders Name Type Priority Associated Diagnoses Orde r Schedule [id number], SERUM Lab Routine Multiple myeloma not having achieved remission (HCC) Expected: 07/27/2024, Expires: 10/25/2024 CBC WITH WBC DIFFERENTIAL Lab Routine Multiple myeloma not having achieved remission (HCC) Expected: 07/27/2024, Expires: 10/25/2024 COMPREHENSIVE METABOLIC PANEL Lab Routine Multiple myeloma not having achieved remission (HCC) Expected: 07/27/2024, Expires: 10/25/2024 IMMUNOGLOBULIN QUANTITATIVE Lab Routine Multiple myeloma not having achieved remission (HCC) Expected: 07/27/2024, Expires: 10/25/2024 SERUM FREE LIGHT CHAINS Lab Routine Multiple myeloma not having achieved remission (HCC) Expected: 07/27/2024, Expires: 10/25/2024 SERUM PROTEIN ELECTROPHORESIS REFLEX PROFILE Lab Routine Multiple myeloma not having achieved remission (HCC) Expected: 07/27/2024, Expires: 10/25/2024 Scheduled Procedures Name Priority Associated Diagnoses Date/Ti me COLONOSCOPY FLEXIBLE PROXIMAL DIAGNOSTIC Recall History of colonic polyps 09/08/2024 2:30 PM EDT Health Maintenance Due Date Last Done Comments Cologuard 1997 Fecal Occult Blood Test 1997 Sigmoidoscopy 1997 Adult Wellness Visit 2018 COVID-19 Vaccine (3 - Moderna risk series) 04/19/2021 03/22/2021, 02/21/2021 Zoster Vaccines (2 of 2) 02/03/2023 12/09/2022, 12/11/2011 CKD PHOS USE SMARTSET 92347 06/15/2024 06/15/2023 Colonoscopy 06/29/2024 06/29/2023, 06/16, 03/16/2023, Additional history exists Colorectal Cancer Screening 06/29/2024 Influenza Vaccine (FLU shot) (#1) 2024 08/03/2023, 08/08/2022 HbA1c 09/29/2024 03/29/2024, 1211/2022, 06/15/2023 Depression Screening 09/30/2024 09/30/2023 GFR 12/30/2024 06/29/2024, 06/16, 06/20/2024, Additional history exists Diabetic Eye Exam 01/20/2025 01/21/2024, , 05/26/2022 Diabetic Foot Exam 04/12/2025 04/12/2024, 04/12/2024 Albumin/Creatinine Ratio 05/09/2025 024, 06/15/2023, 06/03/2022 CKD HGB USE SMARTSET 22018 06/29/202506/29, 06/29/2024, 06/27/2024, Additional history exists DTaP,Tdap,and [...] this encounter Medical Devices Implanted Type Area School Commissioner Device Identifier Shelf Expiration Date Model / Serial / Lot Sureclip 16mm 235cm - [id number] Implanted:Qty: 1 on 03/16/2023 by Irving Iyer MD at OR [facility] [employer] ENDOSCOPY [id number] 05/19/2025 [id number] / / [id number] Duraclip 16mm Xlg Repostn - [id number] Implanted:Qty: 1 on 03/16/2023 by Irving Iyer MD at OR [facility] [employer] PHILLIP [id number] 05/18/2024 [id number] / / [id number] Duraclip 16mm Xlg Repostn - [id number] Implanted:Qty: 1 on 03/16/2023 by Irving Iyer MD at OR [facility] [employer]MED [employer] [id number] 05/18/2024 [id number] / / [id number] Duraclip 16mm Xlg Repostn - [id number] Implanted:Qty: 1 on 03/16/2023 by Irving Iyer MD at OR [facility] [employer]MED [employer] [id number] 05/18/2024 [id number] / / [id number] Duraclip 16mm Xlg Repostn - [id number] Implanted:Qty: 1 on 03/16/2023 by Irving Iyer MD at OR [facility] [employer] [id number] 05/18/2024 [id number] / / [id number] Duraclip 16mm Xlg Repostn - [id number] Implanted:Qty: 1 on 03/16/2023 by Irving Iyer MD at OR [facility] [employer] [id number] 05/18/2024 [id number] / / [id number] Duraclip 16mm Xlg Repostn - [id number] Implanted:Qty: 1 on 03/16/2023 by Irving Iyer MD at OR [facility] [employer] [id number] 05/19/2024 [id number] / / [id number] Duraclip 16mm Xlg Repostn - [id number] Implanted:Qty: 1 on 03/16/2023 by Irving Iyer MD at OR [facility] [employer] [id number] 05/19/2024 [id number] / / [id number] Duraclip 16mm Xlg Repostn - [id number] Implanted:Qty: 1 on 03/16/2023 by Irving Iyer MD at OR [facility] [employer] [id number] 05/19/2024 [id number] / / [id number] Duraclip 16mm Xlg Repostn - [id number] Implanted:Qty: 1 on 03/16/2023 by Irving Iyer MD at OR [facility] [employer] [id number] 05/18/2024 [id number] / / [id number] Duraclip 16mm Xlg Repostn - [id number] Implanted:Qty: 1 on 03/16/2023 by Irving Iyer MD at OR [facility] [employer] [id number] 05/18/2024 [id number] / / [id number] Duraclip 16mm Xlg Repostn - [id number] Implanted:Qty: 1 on 03/16/2023 by Irving Iyer MD at OR [facility] [employer] [id number] 05/18/2024 [id number] / / [id number] Duraclip 16mm Xlg Repostn - [id number] Implanted:Qty: 1 on 03/16/2023 by Irving Iyer MD at OR [facility] [employer] [id number] 05/18/2024 [id number] / / [id number] Duraclip 16mm Xlg Repostn - [id number] Implanted:Qty: 1 on 03/16/2023 by Irving Iyer MD at OR [facility] [employer] PHILLIP [id number] 05/18/2024 [id number] / / [id number] documented as of this encounter Visit Diagnoses Diagnosis Multiple myeloma not having achieved remission (HCC)- Primary Multiple myeloma, without mention of having achieved remission History of colonic polyps Personal history of colonic polyps documented in this encounter Care Teams External Grinder Tool Relationship Specialty Start Date End Date Jean Claude Yao DO [address] [place] [address] PCP - General Internal Medicine 05/09/24 documented as of this encounter
[2024-07-27] MEDS: OPTIRAY 320 125ml IV ONE (10:43)
--- OUTSIDE RECORDS SUMMARY | 2024-07-27 10:43 | External Medical Summary | Summary of Care ---
Author Name Unknown Organization [facility] Address [address] [place] [address] Phone [phone] Care Team Providers Care Retail Pharmacist Name Role Phone CaseybernardJean Claude DO Primary Care Provider [phone] Encounter Details Date Type Department Care Team (Late st Contact Info) Description 06/27/2024 Orders Only Hematology/Oncology [facility] 200 [facility] [place] [address] Abbey Aguiar MD [address] [place] [address] Allergies No known active allergiesdocumented as of this encounter (statuses as of 06/27/2024) Medications Medication Sig Dispensed Refills Start Date [...] as of this encounter (statuses as of 06/27/2024) Active Problems Problem Noted Date Diagnosed Date [...] as of this encounter (statuses as of 06/27/2024) Resolved Problems Problem Noted Date Diagnosed Date Resolved Date Prediabetes 10/26/2023 12/31/2023 Overview: Per Prediabetes protocol Hypertensive kidney disease with stage 3a chronic kidney disease 07/02/2023 03/29/2024 Lesion of pancreas 12/09/2022 documented as of this encounter (statuses as of 06/27/2024) Immunizations Name Administration Dates Next Due COVID-19 [...] Care Team (Latest Contact Info) Description 06/29/2024 8:20 AM EDT Laboratory Laboratory Kelli Kelsey [place] [address] [place] [phone] [place] [address] 06/29/2024 9:00 AM EDT Office Visit Hematology/Oncolog y [place] Timothy Bhardwaj [address] [place] [address] [phone] Abbey Aguiar MD [address] [place] [address] 07/04/2024 7:50 AM EDT Laboratory Laboratory Kelli [facility]sey [place] [address] [place] [address] [place] [address] 07/04/2024 9:00 AM EDT Hem/Onc Treatment Hematology/Oncolog y Domenico [place] [address] [place] [address] [phone] Laure, Chair 10 Hem Onc Scenery [address] [place], [place] [address] 07/04/2024 9:00 AM EDT Pharmacy Pharmacy Hematology Oncology [facility] [address] [place] [address] [facility] Hem/Onc [address] [place] [address] 07/07/2024 8:00 AM EDT Laboratory Laboratory [facility] Laure [place] [address] [place], [place] [address] Laure, Lab Scenery [address] [facility] [place], [place] [address] 07/07/2024 9:00 AM EDT Hem/Onc Treatment Hematology/Oncolog y Treatment, [place] 200 [facility], [place] [address] Laure, Chair 6 Hem Onc Scenery [address] [place], [place] [address] 07/11/2024 7:50 AM EDT Laboratory Laboratory [facility] Laure [place] [address] [place], [place] [address] Laure, Lab Scenery [address] [facility] [place], [place] [address] 07/11/2024 9:00 AM EDT Hem/Onc Treatment Hematology/Oncolog y Treatment, [place] 200 [facility], [place] [address] Laure, Chair 10 Hem Onc Scenery [address] [place], [place] [address] 07/14/2024 9:00 AM EDT Hem/Onc Treatment Hematology/Oncolog y Treatment, [place] 200 [facility], [place] [address] Laure, Chair 6 Hem Onc Scenery [address] [place] [address] 07/19/2024 8:30 AM EDT Laboratory Laboratory [facility] Sayre [place] [address] [place] [address] Laure, Lab Scenery [address] [place] [address] 07/19/2024 9:30 AM EDT Hem/Onc Treatment Hematology/Oncolog y Treatment, [place] 200 [facility] [place] [address] Laure, Chair 8 Hem Onc Scenery [address] [place], [place] [address] 07/22/2024 9:00 AM EDT Hem/Onc Treatment Hematology/Oncolog y Treatment, [place] 200 [facility] [place] [address] Laure, Chair 6 Hem Onc Scenery [address] [place] [address] 07/25/2024 8:00 AM EDT Laboratory Laboratory Shameka Laure [place] [address] [place], [place] [address] Laure, Lab Scenery [address] [place] [address] 07/25/2024 9:00 AM EDT Hem/Onc Treatment Hematology/Oncolog y Treatment, [place] 200 [facility] [place] [address] Laure, Chair 3 Hem Onc Scenery [address] [place] [address] 08/01/2024 8:00 AM EDT Laboratory Laboratory [facility] [place] [address] [place] [address] Laure, Lab Scenery [address] [place] [address] 08/01/2024 8:30 AM EDT Office Visit Hematology/Oncolog y Scenery [facility] [address] [place], [place] [phone] Radha Torres CRNP [address] [place] [address] 08/01/2024 9:00 AM EDT Hem/Onc Treatment Hematology/Oncolog y Treatment, [place] [address] [place], [place] [phone] Laure, Chair 5 Hem Onc Scenery [address] [place], [place] [address] 08/23/2024 10:00 AM EDT Office Visit Family Practice [address] [place] [address] 293 [facility], [place] [address] Jean Claude Yao, 293 [facility], [place] [address] 09/08/2024 2:30 PM EDT Hospital Encounter ENDO OSS[facility], Endoscopy Room [facility] [address] [place] [phone] Irving Iyer MD [address] [place] [address] 09/08/2024 2:30 PM EDT - 09/08/2024 3:00 PM EDT Surgery ENDO OSS[facility], Endoscopy Room [facility] [address] [place] [phone] Irving Iyer MD [address] [place] [address] COLONOSCOPY FLEXIBLE PROXIMAL DIAGNOSTIC 03/13/2025 11:00 AM EDT Office Visit Sleep Disorders Ctr [facility] [address] [place] [phone] Ruma Orellana, [address] [place] [address] Scheduled Procedures Name Priority Associated Diagnoses Date/Ti [...] 12/09/2022, 12/0 11/2011 CKD PHOS USE SMARTSET 39856 06/15/2024 06/15/2023 Colonoscopy 06/29/2024 06/29/2023, 06/16, 03/16/2023, Additional history exists Colorectal Cancer Screening 06/29/2024 Influenza Vaccine (FLU shot) (#1) 2024 08/03/2023, 08/08/2022 HbA1c 09/29/2024 03/29/2024, 12/0 11/2022, 06/15/2023 Depression Screening 09/30/2024 09/30/2023 GFR 12/28/2024 06/27/2024, 08/0 03/2024, 06/07/2024, Additional history exists Diabetic Eye Exam 01/20/2025 01/21/2024, , 05/26/2022 Diabetic Foot Exam 04/12/2025 04/12/2024, 04/12/2024 Albumin/Creatinine Ratio 05/09/2025 024, 06/15/2023, 06/03/2022 CKD HGB USE SMARTSET 18597 06/27/202506/27, 06/27/2024, 06/20/2024, Additional history exists DTaP,Tdap,and Td Vaccines (3 - Td or Tdap) 04/07/2034 04/07/2024, 04/18/2015 Pneumococcal Vaccine: 65+ Years Completed 01/12/2019, 12/15/2017 AAA Screening Completed 02/21/2023, 0 12/2022, 08/01/2022, Additional history exists RETIRED - [...] this encounter Medical Devices Implanted Type Area Weaver Axminster Device Identifier Shelf Expiration Date Model / Serial / Lot Sureclip 16mm 235cm - [id number] Implanted:Qty: 1 on 03/16/2023 by Irving Iyer MD at OR [facility] MICRO TECH ENDOSCOPY [id number] 05/19/2025 [id number] / / [id number] Duraclip 16mm Xlg Repostn - [id number] Implanted:Qty: 1 on 03/16/2023 by Irving Iyer MD at OR [facility] [employer] [id number] 05/18/2024 [id number] / / [id number] Duraclip 16mm Xlg Repostn - [id number] Implanted:Qty: 1 on 03/16/2023 by Irving Iyer MD at OR [facility] [employer] [id number] 05/18/2024 [id number] / / [id number] Duraclip 16mm Xlg Repostn - [id number] Implanted:Qty: 1 on 03/16/2023 by Irving Iyer MD at OR [facility] [employer] [id number] 05/18/2024 [id number] / / [id number] Duraclip 16mm Xlg Repostn - [id number] Implanted:Qty: 1 on 03/16/2023 by Irving Iyer MD at OR [facility] [employer] [id number] 05/18/2024 [id number] / / [id number] Duraclip 16mm Xlg Repostn - [id number] Implanted:Qty: 1 on 03/16/2023 by Irving Iyer MD at OR [facility] [employer] [id number] 05/18/2024 [id number] / / [id number] Duraclip 16mm Xlg Repostn - [id number] Implanted:Qty: 1 on 03/16/2023 by Irving Iyer MD at OR [facility] [employer] [id number] 05/19/2024 [id number] / / [id number] Duraclip 16mm Xlg Repostn - [id number] Implanted:Qty: 1 on 03/16/2023 by Irving Iyer MD at OR [facility] [employer] [id number] 05/19/2024 [id number] / / [id number] Duraclip 16mm Xlg Repostn - [id number] Implanted:Qty: 1 on 03/16/2023 by Irving Iyer MD at OR [facility] [employer] [id number] 05/19/2024 [id number] / / [id number] Duraclip 16mm Xlg Repostn - [id number] Implanted:Qty: 1 on 03/16/2023 by Irving Iyer MD at OR [facility] [employer] [id number] 05/18/2024 [id number] / / [id number] Duraclip 16mm Xlg Repostn - [id number] Implanted:Qty: 1 on 03/16/2023 by Irving Iyer MD at OR [facility] [employer] [id number] 05/18/2024 [id number] / / [id number] Duraclip 16mm Xlg Repostn - [id number] Implanted:Qty: 1 on 03/16/2023 by Irving Iyer MD at OR [facility] [employer] [id number] 05/18/2024 [id number] / / [id number] Duraclip 16mm Xlg Repostn - [id number] Implanted:Qty: 1 on 03/16/2023 by Irving Iyer MD at OR [facility] [employer] [id number] 05/18/2024 [id number] / / [id number] Duraclip 16mm Xlg Repostn - [id number] Implanted:Qty: 1 on 03/16/2023 by Irving Iyer MD at OR [facility] [employer] [id number] 05/18/2024 [id number] / / [id number] documented as of this encounter Care Teams Retail Pharmacist Relationship Specialty Start Date End Date Jean Claude Yao DO [address] [facility] [place] [address] PCP - General Internal Medicine 05/09/24 documented as of this encounter
--- OUTSIDE RECORDS SUMMARY | 2024-07-27 10:43 | External Medical Summary ---
Author Name Unknown Address Unknown Organization K09[facility] [place] [address] Laboratory Report Ordering Provider Test Date Status CARLENE PEREZ 06/29/2024 08:29:16 Final Observation Date Value Abnormality Reference (Units ) Status SYNC LEUKOCYTES IN BLOOD BY AUTOMATED COUNT 06/29/2024 08:29:16 1.80 Below low normal 4.00-10.80 (K/uL) Final Segs 06/29/2024 08:29:16 46.6 40.0-75.0 (%) Final Lymphs % 06/29/2024 08:29:16 25.0 18.0-42.0 (%) Final Monos 06/29/2024 08:29:16 17.8 Above high normal 1.0-11.0 (%) Final Eosinophils 06/29/2024 08:29:16 10.0 Above high normal 0.0-6.0 (%) Final Basos 06/29/2024 08:29:16 0.6 0.0-2.0 (%) Final Absolute Segs 06/29/2024 08:29:16 0.84 Below low normal 1.80-7.70 (K/uL) Final Lymphs, absolute 06/29/2024 08:29:16 0.45 Below low normal 1.00-4.80 (K/ul) Final Monos, Abs 06/29/2024 08:29:16 0.32 0.00-1.10 (K/uL) Final Eos, Abs 06/29/2024 08:29:16 0.18 0.00-0.70 (K/uL) Final Basos, Abs 06/29/2024 08:29:16 0.01 0.00-0.20 (K/uL) Final Performing Location [facility] [place] [address]
--- OUTSIDE RECORDS SUMMARY | 2024-07-27 10:43 | External Medical Summary ---
Author Name Unknown Address Unknown Organization K09[facility] [address] [place] [address] Laboratory Report Ordering Provider Test Date Status CARLENE PEREZ 06/27/2024 08:02:40 Final Observation Date Value Abnormality Reference (Units ) Status BUN 06/27/2024 08:02:40 20 6-20 (mg/dL) Final Creatinine 06/27/2024 08:02:40 1.4 Above high normal 0.6-1.2 (mg/dL) Final Glomerular filtration rate/1.73 sq M.predicted [Volume Rate/Area] in Serum, Plasma or Blood by Creatinine-based formula (CKD-EPI) 06/27/2024 08:02:40 53 Below low normal >=60 (mL/min) Final eGFR is calculated based on the CKD-EPI 2020 equation. Sodium 06/27/2024 08:02:40 137 135-146 (m mol/L) Final Potassium 06/27/2024 08:02:40 4.0 3.5-5.1 (m mol/L) Final Cl 06/27/2024 08:02:40 105 98-107 (mm ol/L) Final CO2 06/27/2024 08:02:40 25 22-32 (mmo l/L) Final Anion gap 06/27/2024 08:02:40 7 7-15 (mmol /L) Final Glucose 06/27/2024 08:02:40 135 Above high normal 70 -120 (mg/dL) Final Albumin 06/27/2024 08:02:40 3.2 Below low normal 3.8 -5.0 (g/dL) Final AST (Aspartate aminotransferase) 06/27/2024 08:02:40 9 Below low normal 10-50 (U/L) Final Alk Phos 06/27/2024 08:02:40 80 35-130 (U/ L) Final Bilirubin, Total 06/27/2024 08:02:40 0.5 <=1 .2 (mg/dL) Final Calcium 06/27/2024 08:02:40 8.7 8.4-10.2 ( mg/dL) Final Protein 06/27/2024 08:02:40 7.6 6.0-8.3 (g /dL) Final ALT (Alanine aminotransferase) 06/27/2024 08:02:40 17 10-50 (U/L) Toby pruett Performing Location [facility] [place] [facility] [address] [place] [address]
--- OUTSIDE RECORDS SUMMARY | 2024-07-27 10:43 | External Medical Summary | Summary of Care ---
Author Name Unknown Organization [facility] Address [address] [place] [facility] [place] [address] Phone [phone] Care Team Providers Care Auctioneer Art Name Role Phone Jean Claude Yao DO Primary Care Provider [phone] Reason for Visit * Reason Onset Date Comments FYI 06/28/2024 Specialty pharma cy update Encounter Details Date Type Department Care Team (Late st Contact Info) Description 06/28/2024 Telephone Hematology/Oncology [facility] [place] 200 [facility] [place] [address] Abbey Aguiar MD 200 [facility] [place] [address] (Specialty pharmacy update) Allergies No known active allergiesdocumented as of this encounter (statuses as of 06/28/2024) Medications Medication Sig Dispensed Refills Start Date [...] as of this encounter (statuses as of 06/28/2024) Active Problems Problem Noted Date Diagnosed Date [...] as of this encounter (statuses as of 06/28/2024) Resolved Problems Problem Noted Date Diagnosed Date Resolved Date Prediabetes 10/26/2023 12/31/2023 Overview: Per Prediabetes protocol Hypertensive kidney disease with stage 3a chronic kidney disease 07/02/2023 03/29/2024 Lesion of pancreas 12/09/2022 4 documented as of this encounter (statuses as of 06/28/2024) Immunizations Name Administration Dates Next Due COVID-19 [...] as of this encounter Miscellaneous Notes * Telephone Encounter - Smita Harris CPhT - 06/28/2024 10:25 AM EDT Confirmed via Trisha, Lenalidomide (qty 7 capsules) scheduled for delivery today. MTDM to schedule for next refill on 07/11 and will adjust date based on resumption of treatment Smita Harris Setter Helper III Hematology Oncology Oral Chemotherapy [facility] Medication Therapy Disease Management [facility] 06/28/2024 10:38 AM documented in this encounter Plan of Treatment Upcoming Encounters Date Type Department Care Team (Latest Contact Info) Description 06/29/2024 8:20 AM EDT Laboratory Laboratory State Timothy Bhardwaj [address] [place] [address] [address] [place] [address] 06/29/2024 9:00 AM EDT Office Visit Hematology/Oncolog y State Timothy Bhardwaj [address] [place] [phone] Abbey Aguiar MD [address] [place], [place] [address] 07/04/2024 7:50 AM EDT Laboratory Laboratory Scenery [place] [address] [place] [phone] Laure, Lab Scenery [address] [place], [place] [address] 07/04/2024 9:00 AM EDT Hem/Onc Treatment Hematology/Oncolog y Treatment, [place] 200 [facility], [place] [phone] Laure, Chair 10 Hem Onc Scenery [address] [place] [address] 07/04/2024 9:00 AM EDT Pharmacy Pharmacy Hematology Oncology [facility] [address] [place] [address] [facility] Hem/Onc [address] [place] [address] 07/07/2024 8:00 AM EDT Laboratory Laboratory [facility] Laure [place] [address] [place] [phone] Laure, Lab Scenery [address] [facility] [place], [place] [address] 07/07/2024 9:00 AM EDT Hem/Onc Treatment Hematology/Oncolog y Treatment, [place] [facility] [place] [phone] Laure, Chair 6 Hem Onc Scenery [address] [place] [address] 07/11/2024 7:50 AM EDT Laboratory Laboratory Scene Laure [place] [address] [place] [phone] Laure, Lab Scenery [address] [place] [address] 07/11/2024 9:00 AM EDT Hem/Onc Treatment Hematology/Oncolog y Treatment, [place] [address] [place] [place] [address] Park, Chair 10 Hem Onc Scenery [address] [place] [address] 07/14/2024 9:00 AM EDT Hem/Onc Treatment Hematology/Oncolog y Treatment, [place] [address] [place] [place] [address] Park, Chair 6 Hem Onc Scenery [address] [place] [address] 07/19/2024 8:30 AM EDT Laboratory Laboratory [facility] [address] [place] [address] Laure, Lab Scenery [address] [place] [address] 07/19/2024 9:30 AM EDT Hem/Onc Treatment Hematology/Oncolog y Treatment, [place] [address] [place] [place] [address] Laure, Chair 8 Hem Onc Scenery [address] [place] [address] 07/22/2024 9:00 AM EDT Hem/Onc Treatment Hematology/Oncolog y Treatment, [place] [address] [place] [address] Laure, Chair 6 Hem Onc Scenery [address] [place] [address] 07/25/2024 8:00 AM EDT Laboratory Laboratory Scenery [facility] [address] [place] [address] Laure, Lab Scenery [address] [place] [address] 07/25/2024 9:00 AM EDT Hem/Onc Treatment Hematology/Oncolog y Treatment, [place] [address] [place], [place] [phone] Laure, Chair 3 Hem Onc Scenery [address] [facility], [place] [address] 08/01/2024 8:00 AM EDT Laboratory Laboratory [facility] [place] [address] [place], [place] [phone] Laure, Lab Scenery [address] [place], [place] [address] 08/01/2024 8:30 AM EDT Office Visit [facility] [place] [address] [place], [place] [phone] Radha Torres CRNP [address] [place], [place] [address] [address] 08/01/2024 9:00 AM EDT Hem/Onc Treatment Hematology/Oncolog y Treatment, [place] [address] [place], [place] [phone] Laure, Chair 5 Hem Onc Scenery 200 [facility] [place], [place] [address] 08/23/2024 10:00 AM EDT Office Visit Family Practice [address], [place] 293 [facility] [place] [address] Jean Claude Yao DO 293 [facility], [place] [address] 09/08/2024 2:30 PM EDT Hospital Encounter ENDO [facility], Endoscopy Room [facility] [address] [place] [phone] Irving Iyer MD [address] [place] [address] 09/08/2024 2:30 PM EDT - 09/08/2024 3:00 PM EDT Surgery ENDO [facility], Endoscopy Room [facility] [address] [place] [phone] Irving Iyer MD [address] [place] [address] COLONOSCOPY FLEXIBLE PROXIMAL DIAGNOSTIC 03/13/2025 11:00 AM EDT [facility] [address] [place] [phone] Ruma Orellana DO [address] [place] [address] Scheduled Procedures Name Priority Associated Diagnoses Date/Ti me COLONOSCOPY FLEXIBLE PROXIMAL DIAGNOSTIC Recall History of colonic polyps 09/08/2024 2:30 PM EDT Health Maintenance Due Date Last Done Comments Cologuard 1997 Fecal Occult Blood Test 1997 Sigmoidoscopy 1997 Adult Wellness Visit 2018 COVID-19 Vaccine (3 - Moderna risk series) 04/19/2021 03/22/2021, 02/21/2021 Zoster Vaccines (2 of 2) 02/03/2023 12/09/2022, 1211/2011 CKD PHOS USE SMARTSET 41764 06/15/2024 06/15/2023 Colonoscopy 06/29/2024 06/29/2023, 06/16, 03/16/2023, Additional history exists Colorectal Cancer Screening 06/29/2024 Influenza Vaccine (FLU shot) (#1) 2024 08/03/2023, 08/08/2022 HbA1c 09/29/2024 03/29/2024, 1211/2022, 06/15/2023 Depression Screening 09/30/2024 09/30/2023 GFR 12/28/2024 06/27/2024, 08/03/2024, 06/07/2024, Additional history exists Diabetic Eye Exam 01/20/2025 01/21/2024, , 05/26/2022 Diabetic Foot Exam 04/12/2025 04/12/2024, 04/12/2024 Albumin/Creatinine Ratio 05/09/2025 024, 06/15/2023, 06/03/2022 CKD HGB USE SMARTSET 32479 06/27/202506/27, 06/27/2024, 06/20/2024, Additional history exists DTaP,Tdap,and [...] this encounter Medical Devices Implanted Type Area Fans Clerk Device Identifier Shelf Expiration Date Model / Serial / Lot Sureclip 16mm 235cm - [id number] Implanted:Qty: 1 on 03/16/2023 by Irving Iyer MD at OR [facility] MICRO TECH ENDOSCOPY [id number] 05/19/2025 [id number] / / [id number] Duraclip 16mm Xlg Repostn - [id number] Implanted:Qty: 1 on 03/16/2023 by Irving Iyer MD at OR [facility] [employer] [id number] 05/18/2024 [id number] / / [id number] Duraclip 16mm Xlg Repostn - [id number] Implanted:Qty: 1 on 03/16/2023 by Irving Iyer MD at OR [facility] [employer] [id number] 05/18/2024 [id number] / / [id number] Duraclip 16mm Xlg Repostn - [id number] Implanted:Qty: 1 on 03/16/2023 by Irving Iyer MD at OR [facility] [employer] [id number] 05/18/2024 [id number] / / [id number] Duraclip 16mm Xlg Repostn - [id number] Implanted:Qty: 1 on 03/16/2023 by Irving Iyer MD at OR [facility] [employer] [id number] 05/18/2024 [id number] / / [id number] Duraclip 16mm Xlg Repostn - [id number] Implanted:Qty: 1 on 03/16/2023 by Irving Iyer MD at OR [facility] [employer] [id number] 05/18/2024 [id number] / / [id number] Duraclip 16mm Xlg Repostn - [id number] Implanted:Qty: 1 on 03/16/2023 by Irving Iyer MD at OR [facility] [employer] [id number] 05/19/2024 [id number] / / [id number] Duraclip 16mm Xlg Repostn - [id number] Implanted:Qty: 1 on 03/16/2023 by Irving Iyer MD at OR [facility] [employer] [id number] 05/19/2024 [id number] / / [id number] Duraclip 16mm Xlg Repostn - [id number] Implanted:Qty: 1 on 03/16/2023 by Irving Iyer MD at OR [facility] [employer] [id number] 05/19/2024 [id number] / / [id number] Duraclip 16mm Xlg Repostn - [id number] Implanted:Qty: 1 on 03/16/2023 by Irving Iyer MD at OR [facility] [employer] [id number] 05/18/2024 [id number] / / [id number] Duraclip 16mm Xlg Repostn - [id number] Implanted:Qty: 1 on 03/16/2023 by Irving Iyer MD at OR [facility] [employer] [id number] 05/18/2024 [id number] / / [id number] Duraclip 16mm Xlg Repostn - [id number] Implanted:Qty: 1 on 03/16/2023 by Irving Iyer MD at OR [facility] [employer] [id number] 05/18/2024 [id number] / / [id number] Duraclip 16mm Xlg Repostn - [id number] Implanted:Qty: 1 on 03/16/2023 by Irving Iyer MD at OR [facility] [employer] [id number] 05/18/2024 [id number] / / [id number] Duraclip 16mm Xlg Repostn - [id number] Implanted:Qty: 1 on 03/16/2023 by Irving Iyer MD at OR [facility] [employer] [id number] 05/18/2024 [id number] / / [id number] documented as of this encounter Visit Diagnoses Diagnosis 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
--- OUTSIDE RECORDS SUMMARY | 2024-07-27 10:43 | External Medical Summary | Summary of Care ---
Author Name Unknown Organization [facility] Address [address] [place] [address] Phone [phone] Care Team Providers Care Certified Orthotist Practice Manager Name Role Phone Jean Claude Yao DO Primary Care Provider [phone] Reason for Visit * Reason Comments Outpatient Testing Encounter Details Date Type Department Care Team (Late st Contact Info) Description 06/27/2024 7:50 AM EDT Laboratory Laboratory [facility] [place] [address] [place] [address] [place], Lab [facility] 200 [facility] [place] [address] Multiple myeloma not having achieved remission (HCC) [...] 7 DAYS OFF 14 Capsule 06/24/2024 Active documented as of this encounter (statuses [...] Department Care Team (Latest Contact Info) Description 06/27/2024 9:00 AM EDT Hem/Onc Treatment Hematology/Oncolog y Treatment, [place] 200 [facility] [place] [phone] Laure, Chair 3 Hem Onc [facility] [address] [place] [address] Arrived 06/29/2024 9:00 AM EDT Office Visit Hematology/Oncolog y [place] [phone] Abbey Aguiar MD [address] [place] [address] 06/30/2024 9:00 AM EDT Hem/Onc Treatment Hematology/Oncolog y Treatment, [place] 200 [facility] [place] [address] Laure, Chair 6 Hem [place] [address] 07/04/2024 7:50 AM EDT Laboratory [place] [phone] Laure Lab Kelli [address] [place] [address] [address] [address] 07/04/2024 9:00 AM EDT Hem/Onc Treatment Hematology/Oncolog y Treatment, [place] 200 [facility], [place] [phone] Laure, Chair 10 Hem Onc Scenery [address] [place], [place] [address] 07/11/2024 7:50 AM EDT Laboratory Laboratory Scenery Laure [place] [address] [place], [place] [address] Laure, Lab Scenery [address] [place], [place] [address] 07/11/2024 9:00 AM EDT Hem/Onc Treatment Hematology/Oncolog y Treatment, [place] 200 [facility], [place] [address] Laure, Chair 10 Hem Onc Scenery [address] [place], [place] [address] 07/11/2024 9:00 AM EDT Pharmacy Pharmacy Hematology Oncology [address] [address] [facility], [facility] Hem/[place] [address] 07/14/2024 9:00 AM EDT Hem/Onc Treatment Hematology/Oncolog y Treatment, [place] 200 [facility], [place] [address] Laure, Chair 6 Hem Onc Scenery [address] [place] [address] 07/19/2024 8:30 AM EDT Laboratory Laboratory Scenery Laure [place] [address] [place], [place] [phone] Laure, Lab Scenery [address] [place] [address] 07/19/2024 9:30 AM EDT Hem/Onc Treatment Hematology/Oncolog y Treatment, [place] 200 [place] [address] Laure, Chair 8 Hem Onc Scenery [address] [place] [address] 07/22/2024 9:00 AM EDT Hem/Onc Treatment Hematology/Oncolog y Treatment, [place] 200 [place] [address] Laure, Chair 6 Hem Onc Scenery [address] [place] [address] 07/25/2024 8:00 AM EDT Laboratory Laboratory [facility] [place] [address] [place], [place] [phone] Laure, Lab Scenery [address] [place], [place] [address] 07/25/2024 9:00 AM EDT Hem/Onc Treatment Hematology/Oncolog y Treatment, [place] 200 [facility] [place] [address] Laure, Chair 3 Hem Onc Scenery [address] [place] [address] 08/01/2024 8:00 AM EDT Laboratory Laboratory [facility] Laure [place] [address] [place], [place] [address] Laure, Lab Scenery [address] [place] [address] 08/01/2024 8:30 AM EDT Office Visit Hematology/Oncolog y [facility] Laure [place] [address] [place] [phone] Radha Torres CRNP 400 [facility] [place] [address] 08/01/2024 9:00 AM EDT Hem/Onc Treatment Hematology/Oncolog y Treatment, [place] [address] [place] [address] Park, Chair 5 Hem Onc Scenery [address] [place] [address] 08/23/2024 10:00 AM EDT Office Visit Family Practice [address], [place] 293 [facility], [place] [address] Jean Claude Yao, 293 [facility], [place] [address] 09/08/2024 2:30 PM EDT Hospital Encounter ENDO [facility], Endoscopy Room [facility] [address] [place] [phone] Irving Iyer MD [address] [place] [address] 09/08/2024 2:30 PM EDT - 09/08/2024 3:00 PM EDT Surgery ENDO [facility], Endoscopy Room [facility] [address] [place] [phone] Irving Iyer MD [address] [place] [address] COLONOSCOPY FLEXIBLE PROXIMAL DIAGNOSTIC 03/13/2025 11:00 AM EDT Office Visit Sleep Disorders Ctr Ruel Watts [place] [address] [place] [phone] Ruma Orellana DO [address] [place] [address] Pending Results Name Type Priority Associated Diagnoses Date /Time CBC WITH WBC DIFFERENTIAL Lab STAT Multiple myeloma not having achieved remission (HCC) 06/27/2024 8:02 AM EDT COMPREHENSIVE METABOLIC PANEL Lab STAT Multiple myeloma not having achieved remission (HCC) 06/27/2024 8:02 AM EDT CBC Lab STAT Multiple myeloma not having achieved remission (HCC) 06/27/2024 8:02 AM EDT DIFFERENTIAL, AUTOMATED Lab STAT Multiple myeloma not having achieved remission (HCC) 06/27/2024 8:02 AM EDT Scheduled Procedures Name Priority [...] 02/03/2023 12/09/2022, 1211/2011 CKD PHOS USE SMARTSET 39639 06/15/2024 06/15/2023 Colonoscopy 06/29/2024 06/29/2023, 06/16, 03/16/2023, Additional history exists Colorectal Cancer Screening 06/29/2024 Influenza Vaccine (FLU shot) (#1) 2024 08/03/2023, 08/08/2022 HbA1c 09/29/2024 03/29/2024, 1211/2022, 06/15/2023 Depression Screening 09/30/2024 09/30/2023 GFR 12/21/2024 06/20/2024, 05/17, 05/30/2024, Additional history exists Diabetic Eye Exam 01/20/2025 01/21/2024, , 05/26/2022 Diabetic Foot Exam 04/12/2025 04/12/2024, 04/12/2024 Albumin/Creatinine Ratio 05/09/2025 024, 06/15/2023, 06/03/2022 CKD HGB USE SMARTSET 87553 06/20/202506/20, 06/20/2024, 06/07/2024, Additional history exists DTaP,Tdap,and Td Vaccines (3 [...] this encounter Medical Devices Implanted Type Area Acid Mixer Device Identifier Shelf Expiration Date Model / Serial / Lot Sureclip 16mm 235cm - [id number] Implanted:Qty: 1 on 03/16/2023 by Irving Iyer MD at OR [facility] MICRO TECH ENDOSCOPY [id number] 05/19/2025 [id number] / / [id number] Duraclip 16mm Xlg Repostn - [id number] Implanted:Qty: 1 on 03/16/2023 by Irving Iyer MD at OR [facility] [employer] [id number] 05/18/2024 [id number] / / [id number] Duraclip 16mm Xlg Repostn - [id number] Implanted:Qty: 1 on 03/16/2023 by Irving Iyer MD at OR [facility] [employer] [id number] 05/18/2024 [id number] / / [id number] Duraclip 16mm Xlg Repostn - [id number] Implanted:Qty: 1 on 03/16/2023 by Irving Iyer MD at OR [facility] [employer] [id number] 05/18/2024 [id number] / / [id number] Duraclip 16mm Xlg Repostn - [id number] Implanted:Qty: 1 on 03/16/2023 by Irving Iyer MD at OR [facility] [employer] [id number] 05/18/2024 [id number] / / [id number] Duraclip 16mm Xlg Repostn - [id number] Implanted:Qty: 1 on 03/16/2023 by Irving Iyer MD at OR [facility] [employer] [id number] 05/18/2024 [id number] / / [id number] Duraclip 16mm Xlg Repostn - [id number] Implanted:Qty: 1 on 03/16/2023 by Irving Iyer MD at OR [facility] [employer] [id number] 05/19/2024 [id number] / / [id number] Duraclip 16mm Xlg Repostn - [id number] Implanted:Qty: 1 on 03/16/2023 by Irving Iyer MD at OR [facility] [employer] [id number] 05/19/2024 [id number] / / [id number] Duraclip 16mm Xlg Repostn - [id number] Implanted:Qty: 1 on 03/16/2023 by Irving Iyer MD at OR [facility] [employer] [id number] 05/19/2024 [id number] / / [id number] Duraclip 16mm Xlg Repostn - [id number] Implanted:Qty: 1 on 03/16/2023 by Irving Iyer MD at OR [facility] [employer] [id number] 05/18/2024 [id number] / / [id number] Duraclip 16mm Xlg Repostn - [id number] Implanted:Qty: 1 on 03/16/2023 by Irving Iyer MD at OR [facility] [employer] [id number] 05/18/2024 [id number] / / [id number] Duraclip 16mm Xlg Repostn - [id number] Implanted:Qty: 1 on 03/16/2023 by Irving Iyer MD at OR [facility] [employer] [id number] 05/18/2024 [id number] / / [id number] Duraclip 16mm Xlg Repostn - [id number] Implanted:Qty: 1 on 03/16/2023 by Irving Iyer MD at OR [facility] TNM [employer] [id number] 05/18/2024 [id number] / / [id number] Duraclip 16mm Xlg Repostn - [id number] Implanted:Qty: 1 on 03/16/2023 by Irving Iyer MD at OR [facility] [employer] [id number] 05/18/2024 [id number] / / [id number] documented as of this encounter Visit Diagnoses Diagnosis Multiple myeloma not having achieved remission (HCC) Multiple myeloma, without mention of having achieved remission History of colonic polyps Personal history of colonic polyps documented in this encounter Care Teams Certified Orthotist Practice Manager Relationship Specialty Start Date End Date Jean Claude Yao DO [address] [place] [address] PCP - General Internal Medicine 05/09/24 documented as of this encounter
--- OUTSIDE RECORDS SUMMARY | 2024-07-27 10:43 | External Medical Summary | Summary of Care ---
Author Name Unknown Organization [facility] Address [address] [place] [address] Phone [phone] Care Team Providers Care Continuous Improvement Specialist Name Role Phone Jean Claude Yao DO Primary Care Provider Encounter Details Date Type Department Care Team (Late st Contact Info) Description 06/02/2024 Orders Only Hematology/Oncology, [facility] [address] [place] [address] Abbey Aguiar MD 200 [facility] [place] [address] Allergies No known active allergiesdocumented as of this encounter (statuses as of 06/27/2024) Medications Medication Sig Dispensed Refills Start Date End Date Status CPAP every night at bedtime. Active Aspirin 81 MG Oral Tablet Delayed ReleaseIndicatio ns:Smoldering multiple myeloma (SMM) Take 1 Tablet by [...] 03/26/2024 Active dexAMETHasone 4 MG Oral Tablet (Decadron)Indica tions:Smoldering multiple myeloma (SMM) Take 5 Tablets by mouth once a week. 20 Tablet 5 05/11/2024 Active Acyclovir 400 MG Oral Tablet (Zovirax)Indicat ions:Smoldering multiple myeloma (SMM) Take 1 Tablet by mouth in the morning and 1 Tablet before bedtime. 60 Tablet 5 12/16/2023 4 Discontinue d(Refill) Lenalidomide 10 MG Oral Capsule (Revlimid)Indica tions:Smoldering multiple myeloma (SMM) Take 1 Capsule by mouth in the morning. Days 1-21 every 28 days. 21 Capsule 05/27/2024 4 Discontinue d(Medicatio n/Dose Changed) documented as of this encounter (statuses [...] AM EDT Office Visit Hematology/Oncolog y [place] [address] [place] [address] [place] [phone] Abbey Aguiar MD [address] [place] [address] 06/30/2024 9:00 AM EDT Hem/Onc Treatment Hematology/Oncolog y Treatment, [place] [address] [place] [phone] Laure, Chair [address] [place] [address] 07/04/2024 7:50 AM EDT Laboratory Laboratory [place] Seth Bhardwaj [address] [place] [address] [address] [phone] [place] [address] 07/04/2024 9:00 AM EDT Hem/Onc Treatment Hematology/Oncolog y Treatment, [place] [address] [place] [phone] Park, Chair 10 Hem Onc Scenery [address] [place] [address] 07/04/2024 9:00 AM EDT Pharmacy Pharmacy Hematology Oncology [facility] [address] [place] [address] [facility] Hem/Onc [address] [place] [address] 07/11/2024 7:50 AM EDT Laboratory Laboratory Scenery Laure [place] [address] [place], [place] [address] Laure, Lab Scenery [address] [place], [place] [address] 07/11/2024 9:00 AM EDT Hem/Onc Treatment Hematology/Oncolog y Treatment, [place] 200 [facility] Rosalie [place], [place] [phone] Laure, Chair 10 Hem Onc Scenery [address] [place] [address] 07/14/2024 9:00 AM EDT Hem/Onc Treatment Hematology/Oncolog y Treatment, [place] 200 [facility] Rosalie [place], [place] [address] Laure, Chair 6 Hem Onc Scenery [address] [place] [address] 07/19/2024 8:30 AM EDT Laboratory Laboratory Scenery Laure [place] [address] [place] [address] Laure, Lab Scenery [address] [place] [address] 07/19/2024 9:30 AM EDT Hem/Onc Treatment Hematology/Oncolog y Treatment, [place] [address] [place] [address] Laure, Chair 8 Hem Onc Scenery [address] [place] [address] 07/22/2024 9:00 AM EDT Hem/Onc Treatment Hematology/Oncolog y Treatment, [place] 200 [place] [address] Laure, Chair 6 Hem Onc Scenery [address] [place], [place] [address] 07/25/2024 8:00 AM EDT Laboratory Laboratory Scene Laure [place] [address] [place], [place] [phone] Laure, Lab Scenery [address] [place], [place] [address] 07/25/2024 9:00 AM EDT Hem/Onc Treatment Hematology/Oncolog y Treatment, [place] 200 [facility], [place] [address] Laure, Chair 3 Hem Onc Scenery [address] [place], [place] [address] 08/01/2024 8:00 AM EDT Laboratory Laboratory [facility] [place] [address] [place], [place] [phone] Laure, Lab Scenery [address] [place], [place] [address] 08/01/2024 8:30 AM EDT Office Visit Hematology/Oncolog y Scenery Laure [place] [address] [place], [place] [address] Radha Torres CRNP 400 [facility] [place] [address] 08/01/2024 9:00 AM EDT Hem/Onc Treatment Hematology/Oncolog y Treatment, [place] 200 [facility], [place] [address] Laure, Chair 5 Hem Onc Scenery [address] [place], [place] [address] 08/23/2024 10:00 AM EDT Office Visit Family Practice [address] [place] [address], [place] 293 [place] [address] Jean Claude Yao, 293 [place] [address] 09/08/2024 2:30 PM EDT Hospital Encounter ENDO [facility], Endoscopy Room [facility] [address] [place] [address] Irving Iyer MD [address] [place] [address] 09/08/2024 2:30 PM EDT - 09/08/2024 3:00 PM EDT Surgery ENDO [facility], Endoscopy Room [facility] [address] [place] [phone] Irving Iyer MD [address] [place] [address] COLONOSCOPY FLEXIBLE PROXIMAL DIAGNOSTIC 03/13/2025 11:00 AM EDT Office Visit Sleep Disorders Ctr [facility] [address] [place] [phone] Ruma Orellana DO [address] [place] [address] Scheduled Procedures Name Priority Associated Diagnoses Date/Ti [...] 12/09/2022, 12/0 11/2011 CKD PHOS USE SMARTSET 74149 06/15/2024 06/15/2023 Colonoscopy 06/29/2024 06/29/2023, 06/16, 03/16/2023, Additional history exists Colorectal Cancer Screening 06/29/2024 Influenza Vaccine (FLU shot) (#1) 2024 08/03/2023, 08/08/2022 HbA1c 09/29/2024 03/29/2024, 1211/2022, 06/15/2023 Depression Screening 09/30/2024 09/30/2023 GFR 12/28/2024 06/27/2024, 03/2024, 06/07/2024, Additional history exists Diabetic Eye Exam 01/20/2025 01/21/2024, , 05/26/2022 Diabetic Foot Exam 04/12/2025 04/12/2024, 04/12/2024 Albumin/Creatinine Ratio 05/09/2025 024, 06/15/2023, 06/03/2022 CKD HGB USE SMARTSET 29853 06/27/202506/27, 06/27/2024, 06/20/2024, Additional history exists DTaP,Tdap,and [...] this encounter Medical Devices Implanted Type Area Child Welfare Caseworker Device Identifier Shelf Expiration Date Model / Serial / Lot Sureclip 16mm 235cm - [id number] Implanted:Qty: 1 on 03/16/2023 by Irving Iyer MD at OR [facility] MICRO TECH ENDOSCOPY [id number] 05/19/2025 [id number] / / [id number] Duraclip 16mm Xlg Repostn - [id number] Implanted:Qty: 1 on 03/16/2023 by Irving Iyer MD at OR [facility] [employer] [id number] 05/18/2024 [id number] / / [id number] Duraclip 16mm Xlg Repostn - [id number] Implanted:Qty: 1 on 03/16/2023 by Irving Iyer MD at OR [facility] [employer] [id number] 05/18/2024 [id number] / / [id number] Duraclip 16mm Xlg Repostn - [id number] Implanted:Qty: 1 on 03/16/2023 by Irving Iyer MD at OR [facility] [employer] [id number] 05/18/2024 [id number] / / [id number] Duraclip 16mm Xlg Repostn - [id number] Implanted:Qty: 1 on 03/16/2023 by Irving Iyer MD at OR [facility] [employer] [id number] 05/18/2024 [id number] / / [id number] Duraclip 16mm Xlg Repostn - [id number] Implanted:Qty: 1 on 03/16/2023 by Irving Iyer MD at OR [facility] [employer] [id number] 05/18/2024 [id number] / / [id number] Duraclip 16mm Xlg Repostn - [id number] Implanted:Qty: 1 on 03/16/2023 by Irving Iyer MD at OR [facility] [employer] [id number] 05/19/2024 [id number] / / [id number] Duraclip 16mm Xlg Repostn - [id number] Implanted:Qty: 1 on 03/16/2023 by Irving Iyer MD at OR [facility] [employer] [id number] 05/19/2024 [id number] / / [id number] Duraclip 16mm Xlg Repostn - [id number] Implanted:Qty: 1 on 03/16/2023 by Irving Iyer MD at OR [facility] [employer] [id number] 05/19/2024 [id number] / / [id number] Duraclip 16mm Xlg Repostn - [id number] Implanted:Qty: 1 on 03/16/2023 by Irving Iyer MD at OR [facility] [employer] [id number] 05/18/2024 [id number] / / [id number] Duraclip 16mm Xlg Repostn - [id number] Implanted:Qty: 1 on 03/16/2023 by Irving Iyer MD at OR [facility] [employer] [id number] 05/18/2024 [id number] / / [id number] Duraclip 16mm Xlg Repostn - [id number] Implanted:Qty: 1 on 03/16/2023 by Irving Iyer MD at OR [facility] [employer] [id number] 05/18/2024 [id number] / / [id number] Duraclip 16mm Xlg Repostn - [id number] Implanted:Qty: 1 on 03/16/2023 by Irving Iyer MD at OR [facility] [employer] [id number] 05/18/2024 [id number] / / [id number] Duraclip 16mm Xlg Repostn - [id number] Implanted:Qty: 1 on 03/16/2023 by Irving Iyer MD at OR [facility] [employer] [id number] 05/18/2024 [id number] / / [id number] documented as of this encounter Care Teams Continuous Improvement Specialist Relationship Specialty Start Date End Date Jean Claude Yao DO [address] [place] [address] PCP - General Internal Medicine 6/24/24 documented as of this encounter
--- OUTSIDE RECORDS SUMMARY | 2024-07-27 10:43 | External Medical Summary | Summary of Care ---
Author Name Unknown Organization [facility] Address [address] [place] [address] Phone [phone] Care Team Providers Care Data Scientist Name Role Phone Jean Claude Yao DO Primary Care Provider [phone] Reason for Visit * Reason Comments Medication Management Encounter Details Date Type Department Care Team (Late st Contact Info) Description 06/27/2024 9:00 AM EDT Pharmacy Pharmacy Hematology Oncology [facility] [address] [place], [place] [id number] [facility], [facility] Hem/Onc [address] [place] [address] Smoldering multiple myeloma (SMM)* Allergies No known [...] disease 07/02/2023 03/29/2024 Lesion of pancreas 12/09/2022 02/22/202 4 documented as of this encounter (statuses [...] this encounter Progress Notes * Alejandrina Steele, [facility] - 06/27/2024 9:19 AM EDT MEDICATION THERAPY MANAGEMENT LENALIDOMIDE TREATMENT PROGRESS NOTE Jeff Martin [id number] Patient Phone Numbers : Brenna Rosenberg Lab: [facility] Specialty Pharmacy: [facility] Communication: Spoke to: Patient, Spoke to RN, and Spoke to MD/PA/SPRINKLER FITTER HELPER Treatment: Medication: Lenalidomide (Revlimid) 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 Aguiar Additional Therapy: Dexamethasone 20mg weekly (on Sundays) Daratumumab - started 06/20/24 Bortezomib Supportive Care Meds: Ondansetron Prochlorperazine Prophylactic Meds: ASA Acyclovir Cycle Dates C1 06/07 - 06/27 C2 (DR 15mg; Delayed) 07/12 - 08/01 C3 Delayed; DR 10mg 08/23 - 09/12 C4 09/22 - 10/12 C5 delayed 11/03 - 11/23 C11 05/08 - 05/28 C12 Frequency change to 06/05 - 06/18 C13 06/26; TBD Treatment History: None Dose adjustment / medication hold: 06/30/23-07/11/23: lenalidomide on HOLD due to cytopenias 06/2023: lenalidomide dose reduced to 15mg due to cytopenias C3 and C5 delayed due to neutropenia C13 held due to grade 3/4 neutropenia Interval History: Lenalidomide RX sent to pharmacy 05/27/24 Per OV 06/01/24, treatment changed to DaraVRd Per TE 06/02/24 addendum 06/06/24, daratumumab and bortezomib require azkb-iq-kgtm for insurance approval Per discussion with Inocencia Sanchez RN, pt started lenalidomide cycle 06/26/24 Changes to medication list since last visit? No Assessment and Plan: ANC declining to grade 3/4 neutropenia Per PI, recommend to HOLD for ANC < 1000 Advised to go to ED if fever (temp > 100.4) PLT declining to grade 2/3 thrombocytopenia Per PI, no dose adjustment recommended for PLT < 50K Will monitor closely All other labs stable Per discussion with Inocencia Sanchez RN, pt advised to HOLD lenalidomide due to neutropenia Per discussion with Dr. Aguiar, pt to start levofloxacin for antimicrobial ppx RX pended to Dr. Aguiar for signature Pt to repeat labs with OV 06/29/24 Repeat labs in 1 week Assessment of compliance: compliant Assessment of adverse effects attributed to drug therapy: N/A Dose adjustment needed based on lab or adverse drug reaction? Yes, HOLD Follow up: 06/29 OV/labs; 1 week MTM with labs Alejandrina Steele, PharmD, BCOP Clinical Pharmacist, [facility] Oral Chemotherapy [facility] 06/27/2024, 9:36 AM Monitoring Parameters: Estimated CrCl Serum creatinine: 1.4 mg/dL (H) 06/27/24 0802 Estimated creatinine clearance: 52.3 mL/min (A) Hepatitis [...] Pertinent labs: Latest Reference Range & Units 06/07/24 10:36 06/20/24 08:38 06/27/24 08:02 WBC 4.00 - 10.80 K/uL 3.44 (L) 2.26 (L) 2.16 (L) RBC 4.50 - 5.25 M/uL 2.69 2.60 2.75 HGB 14.0 - 16.8 g/dL 9.4 (L) 9.2 (L) 9.5 (L) HCT 40.0 - 48.4 % 28.8 (L) 27.9 (L) 29.0 (L) MCV 82.0 - 99.5 fL 107.1 107.3 105.5 MCH 27.0 - 34.0 pg 34.9 35.4 34.5 MCHC 32.0 - 36.0 g/dL 32.6 33.0 32.8 RDW 11.5 - 15.5 % 14.4 14.2 13.8 PLT 140 - 400 K/uL 128 (L) 93 (L) 58 (L) MPV 6.6 - 11.1 fL 8.8 10.6 12.0 CBC WITH WBC DIFFERENTIAL Rpt ! Rpt ! Rpt ! Absolute Neutrophils 1.80 - 7.70 K/uL 1.23 (L) 1.08 (L) 0.59 (L) Latest Reference Range & Units 06/07/24 10:36 06/20/24 08:38 06/27/24 08:02 Albumin 3.8 - 5.0 g/dL 3.3 (L) 3.2 (L) 3.2 (L) AST 10 - 50 U/L 11 10 9 (L) ALT 10 - 50 U/L 12 14 17 Alkaline Phosphatase 35 - 130 U/L 66 75 80 Bilirubin, Total <=1.2 mg/dL 0.4 0.9 0.5 Time Spent on Encounter: 11 - 15 minutes Encounter Group: Hematology Encounter Interventions Item Category: Oral Chemotherapy Lenalidomide Problem/Rationale: Safety: Needs additional monitoring - Medication Requires monitoring Pharmacist Intervention(s): Clarification with Provider, Discussed patient with nursing, Lab monitoring, and Medication held Magnitude of Intervention: Modification of medication for asymtomatic patients (Level 2) Second Item Second Item Category: Anti-Infective Levofloxacin Problem/Rationale: Indication: Needs additional medication therapy - Preventive therapy Pharmacist Intervention(s): Clarification with Provider, Lab monitoring, and Medication prescribed Magnitude of Intervention: Modification of medication for asymtomatic patients (Level 2) documented in this encounter Plan of Treatment Upcoming Encounters Date Type Department Care Team (Latest Contact Info) Description 06/29/2024 9:00 AM EDT Office Visit Hematology/Oncolog y [facility] [place] [address] [facility] [address] [place] [phone] Abbey Aguiar MD [address] [place] [address] 06/30/2024 9:00 AM EDT Hem/Onc Treatment Hematology/Oncolog y Treatment [place] [address] [facility] [place] [phone] Laure, Chair [address] [facility] [address] [place] [address] 07/04/2024 7:50 AM EDT Laboratory Laboratory [facility] [place] [address] [place] [address] Laure, Lab [facility] [address] [facility] [place] [address] 07/04/2024 9:00 AM EDT Hem/Onc Treatment Hematology/Oncolog y Treatment, [place] [address] [facility] [place] [phone] Laure, Chair 10 Hem Onc [facility] [address] [place] [address] 07/04/2024 9:00 AM EDT Pharmacy Pharmacy Hematology Oncology [facility] [address] [place] [address] [facility], [facility] Hem/Onc [address] [place] [address] 07/11/2024 7:50 AM EDT Laboratory Laboratory Scenery [facility] [address] [place], [place] [address] Laure, Lab Scenery [address] [place], [place] [address] 07/11/2024 9:00 AM EDT Hem/Onc Treatment Hematology/Oncolog y Treatment, [place] [address] [facility], [place] [address] Laure, Chair 10 Hem Onc Scenery [address] [place], [place] [address] 07/14/2024 9:00 AM EDT Hem/Onc Treatment Hematology/Oncolog y Treatment, [place] [address] [facility], [place] [address] Laure, Chair 6 Hem Onc Scenery [address] [place], [place] [address] 07/19/2024 8:30 AM EDT Laboratory Laboratory [facility] Laure [place] [address] [place], [place] [address] Laure, Lab Scenery [address] [place] [address] 07/19/2024 9:30 AM EDT Hem/Onc Treatment Hematology/Oncolog y Treatment, [place] [address] [facility], [place] [address] Laure, Chair 8 Hem Onc Scenery [address] [place] [address] 07/22/2024 9:00 AM EDT Hem/Onc Treatment Hematology/Oncolog y Treatment, [place] [address] [place] [phone] Park, Chair 6 Hem Onc Scenery [address] [place], [place] [address] 07/25/2024 8:00 AM EDT Laboratory Laboratory [facility] [address] [place], [place] [address] Laure, Lab Scenery [address] [place] [address] 07/25/2024 9:00 AM EDT Hem/Onc Treatment Hematology/Oncolog y Treatment, [place] [address] [facility], [place] [address] Laure, Chair 3 Hem Onc Scenery [address] [place], [place] [address] 08/01/2024 8:00 AM EDT Laboratory Laboratory [facility] [address] [place], [place] [address] Laure, Lab Scenery [address] [place] [address] 08/01/2024 8:30 AM EDT Office Visit Hematology/Oncolog y [facility] [address] [place], [place] [phone] Radha Torres CRNP [address] [facility] [place] [address] 08/01/2024 9:00 AM EDT Hem/Onc Treatment Hematology/Oncolog y [facility], [place] [address] [place] [address] Laure, Chair 5 Hem Onc Scenery [address] [place], [place] [address] 08/23/2024 10:00 AM EDT Office Visit Family Practice [address] [facility], [place] [address] [facility] [address] Jean Claude Yao, DO [address] [facility], [place] [address] 09/08/2024 2:30 PM EDT Hospital Encounter ENDO [facility], Endoscopy Room [facility] [address] [facility] [place] [phone] Irving [facility]yer MD [facility] [place] [address] 09/08/2024 2:30 PM EDT - 09/08/2024 3:00 PM EDT Surgery ENDO [facility], Endoscopy Room [facility] [place] [address] Irving Iyer MD [address] [place] [address] COLONOSCOPY FLEXIBLE PROXIMAL DIAGNOSTIC 03/13/2025 11:00 AM EDT Office Visit Sleep Disorders Ctr [facility] [address] [facility] [place] [phone] Ruma Orellana DO 132 [facility] [place] [address] Scheduled Procedures Name Priority Associated Diagnoses Date/Ti [...] 12/09/2022, 12/0 11/2011 CKD PHOS USE SMARTSET 74690 06/15/2024 06/15/2023 Colonoscopy 06/29/2024 06/29/2023, 06/16, 03/16/2023, Additional history exists Colorectal Cancer Screening 06/29/2024 Influenza Vaccine (FLU shot) (#1) 2024 08/03/2023, 08/08/2022 HbA1c 09/29/2024 03/29/2024, 11/2022, 06/15/2023 Depression Screening 09/30/2024 09/30/2023 GFR 12/28/2024 06/27/2024, 03/2024, 06/07/2024, Additional history exists Diabetic Eye Exam 01/20/2025 01/21/2024, , 05/26/2022 Diabetic Foot Exam 04/12/2025 04/12/2024, 04/12/2024 Albumin/Creatinine Ratio 05/09/2025 024, 06/15/2023, 06/03/2022 CKD HGB USE SMARTSET 34079 06/27/202506/27, 06/27/2024, 06/20/2024, Additional history exists DTaP,Tdap,and [...] this encounter Medical Devices Implanted Type Area Catering Sales Manager Device Identifier Shelf Expiration Date Model / Serial / Lot Sureclip 16mm 235cm - [id number] Implanted:Qty: 1 on 03/16/2023 by [place] Iyer MD at OR [facility] MICRO TECH ENDOSCOPY [id number] 05/19/2025 [id number] / / [id number] Duraclip 16mm Xlg Repostn - [id number] Implanted:Qty: 1 on 03/16/2023 by [place] Iyer MD at OR [facility] CONMED PHILLIP [id number] 05/18/2024 [id number] / / [id number] Duraclip 16mm Xlg Repostn - [id number] Implanted:Qty: 1 on 03/16/2023 by [place] Iyer MD at OR [facility] [employer] [id number] 05/18/2024 [id number] / / [id number] Duraclip 16mm Xlg Repostn - [id number] Implanted:Qty: 1 on 03/16/2023 by Irving Iyer MD at OR [facility] [employer] [id number] 05/18/2024 [id number] / / [id number] Duraclip 16mm Xlg Repostn - [id number] Implanted:Qty: 1 on 03/16/2023 by Irving Iyer MD at OR [facility] [employer] [id number] 05/18/2024 [id number] / / [id number] Duraclip 16mm Xlg Repostn - [id number] Implanted:Qty: 1 on 03/16/2023 by Irving Iyer MD at OR [facility] [employer] [id number] 05/18/2024 [id number] / / [id number] Duraclip 16mm Xlg Repostn - [id number] Implanted:Qty: 1 on 03/16/2023 by Irving Iyer MD at OR [facility] [employer] [id number] 05/19/2024 [id number] / / [id number] Duraclip 16mm Xlg Repostn - [id number] Implanted:Qty: 1 on 03/16/2023 by Irving Iyer MD at OR [facility] [employer] [id number] 05/19/2024 [id number] / / [id number] Duraclip 16mm Xlg Repostn - [id number] Implanted:Qty: 1 on 03/16/2023 by Irving Iyer MD at OR [facility] [employer]IP [id number] 05/19/2024 [id number] / / [id number] Duraclip 16mm Xlg Repostn - [id number] Implanted:Qty: 1 on 03/16/2023 by Irving Iyer MD at OR [facility] [employer]IP [id number] 05/18/2024 [id number] / / [id number] Duraclip 16mm Xlg Repostn - [id number] Implanted:Qty: 1 on 03/16/2023 by Irving Iyer MD at OR [facility] [employer] [id number] 05/18/2024 [id number] / / [id number] Duraclip 16mm Xlg Repostn - [id number] Implanted:Qty: 1 on 03/16/2023 by Irving Iyer MD at OR [facility] [employer] [id number] 05/18/2024 [id number] / / [id number] Duraclip 16mm Xlg Repostn - [id number] Implanted:Qty: 1 on 03/16/2023 by [place] Iyer MD at OR [facility] [employer] [id number] 05/18/2024 [id number] / / [id number] Duraclip 16mm Xlg Repostn - [id number] Implanted:Qty: 1 on 03/16/2023 by [place] Iyer MD at OR [facility] Stray BootsMED PHILLIP [id number] 05/18/2024 [id number] / / [id number] documented as of this encounter Visit Diagnoses Diagnosis Smoldering multiple myeloma (SMM)- Primary Multiple myeloma, without mention of having achieved remission History of colonic polyps Personal history of colonic polyps documented in this encounter Care Teams Data Scientist Relationship Specialty Start Date End Date Jean Claude Yao DO [address] [place] [address] PCP - General Internal Medicine 05/09/24 documented as of this encounter
--- OUTSIDE RECORDS SUMMARY | 2024-07-27 10:43 | External Medical Summary | Summary of Care ---
Author Name Unknown Organization [facility] Address [address] [place] [address] Phone [phone] Care Team Providers Care Steamboat Captain Name Role Phone Jean Claude Yao DO Primary Care Provider [phone] Reason for Visit * Reason Onset Date Comments Medication Refill 06/27/2024 Encounter Details Date Type Department Care Team (Late st Contact Info) Description 06/27/2024 Refill Hematology/Oncology [facility] [place] [address] [facility] [place] [address] Abbey Concepcion MD 200 [facility] [place] [address] Multiple myeloma not having achieved remission (HCC)* [...] encounter Miscellaneous Notes * Telephone Encounter - Abbey Concepcion MD - 06/27/2024 9:36 AM EDTSigned Prescriptions: Disp Refills levoFLOXacin 500 MG Oral Tablet (Levaquin) 14 Tab*1 Sig: Take 1 Tablet by mouth in the morning. Authorizing Provider: ABBEY CONCEPCION * Telephone Encounter - Alejandrina Steele RPh - 06/27/2024 9:32 AM EDT Levofloxacin RX per 8/12 MTM encounter documented in this encounter Plan of Treatment Upcoming Encounters Date Type Department Care Team (Latest Contact Info) Description 06/29/2024 9:00 AM EDT Office Visit Hematology/Oncolog y Scenery Laure [place] [address] [place] [phone] Abbey Concepcion MD [address] [place] [address] 06/30/2024 9:00 AM EDT Hem/Onc Treatment Hematology/Oncolog y Treatment, [place] 200 [facility], [place] [phone] Laure, Chair 6 Hem Onc Scenery [address] [place] [address] 07/04/2024 7:50 AM EDT Laboratory Laboratory Kelli Kelsey [place] [address] [place] [phone] Laure, Lab Scenery [address] [facility] [place] [address] 07/04/2024 9:00 AM EDT Hem/Onc Treatment Hematology/Oncolog y Treatment, [place] 200 [facility], [place] [phone] Laure, Chair 10 Hem Onc Scenery [address] [place], [place] [address] 07/04/2024 9:00 AM EDT Pharmacy Pharmacy Hematology Oncology [facility] [address] [place] [address] [facility] Clinic Hem/Onc [address] [place] [address] 07/11/2024 7:50 AM EDT Laboratory Laboratory [facility] Laure [place] [address] [place] [phone] Laure, Lab Scenery [address] [place], [place] [address] 07/11/2024 9:00 AM EDT Hem/Onc Treatment Hematology/Oncolog y Treatment, [place] 200 [facility] [place] [phone] Park, Chair 10 Hem Onc Scenery [address] [place] [address] 07/14/2024 9:00 AM EDT Hem/Onc Treatment Hematology/Oncolog y Treatment, [place] 200 [facility] [place] [address] Laure, Chair 6 Hem Onc Scenery [address] [place] [address] 07/19/2024 8:30 AM EDT Laboratory Laboratory [facility] [address] [place] [address] Laure, Lab Scenery [address] [place] [address] 07/19/2024 9:30 AM EDT Hem/Onc Treatment Hematology/Oncolog y Treatment, [place] 200 [facility] [place] [address] Laure, Chair 8 Hem Onc Scenery [address] [place] [address] 07/22/2024 9:00 AM EDT Hem/Onc Treatment Hematology/Oncolog y Treatment, [place] 200 [facility] [place] [address] Laure, Chair 6 Hem Onc Scenery [address] [place] [address] 07/25/2024 8:00 AM EDT Laboratory Laboratory [facility] [place] [address] [place] [phone] Laure, Lab Scenery [address] [place] [address] 07/25/2024 9:00 AM EDT Hem/Onc Treatment Hematology/Oncolog y Treatment, [place] 200 [facility] [place] [address] Laure, Chair 3 Hem Onc Scenery [address] [place], [place] [address] 08/01/2024 8:00 AM EDT Laboratory Laboratory [facility] [place] [address] [place], [place] [phone] Laure, Lab Scenery [address] [place], [place] [address] 08/01/2024 8:30 AM EDT Office Visit Hematology/Oncolog y [facility] [address] [place], [place] [phone] Radha Torres CRNP [address] [place] [address] 08/01/2024 9:00 AM EDT Hem[facility] 200 [facility], [place] [phone] Laure, Chair 5 Hem Onc Scenery 200 [facility] [place], [place] [address] 08/23/2024 10:00 AM EDT Office Visit Family Practice [address] [place] [address] 293 [place] [address] Jean Claude Yao, 293 [facility] [place] [address] 09/08/2024 2:30 PM EDT Hospital Encounter ENDO [facility], Endoscopy Room [facility] 132 [facility] [place] [phone] Irving Iyer MD [address] [facility] [place] [address] 09/08/2024 2:30 PM EDT - 09/08/2024 3:00 PM EDT Surgery ENDO [facility], Endoscopy Room [facility] 132 [facility] [place] [address] Irving Iyer MD [address] [place] [address] COLONOSCOPY FLEXIBLE PROXIMAL DIAGNOSTIC 03/13/2025 11:00 AM EDT Office Visit Sleep Disorders Ctr [facility] [address] [place] [phone] Ruma Orellana, [address] [place] [address] Scheduled Procedures Name Priority Associated Diagnoses Date/Ti me COLONOSCOPY FLEXIBLE PROXIMAL DIAGNOSTIC Recall History of colonic polyps 09/08/2024 2:30 PM EDT Health Maintenance Due Date Last Done Comments Cologuard 1997 Fecal Occult Blood Test 1997 Sigmoidoscopy 1997 Adult Wellness Visit 2018 COVID-19 Vaccine (3 - Moderna risk series) 04/19/2021 03/22/2021, 02/21/2021 Zoster Vaccines (2 of 2) 02/03/2023 12/09/2022, 1211/2011 CKD PHOS USE SMARTSET 29901 06/15/2024 06/15/2023 Colonoscopy 06/29/2024 06/29/2023, 06/16, 03/16/2023, Additional history exists Colorectal Cancer Screening 06/29/2024 Influenza Vaccine (FLU shot) (#1) 2024 08/03/2023, 08/08/2022 HbA1c 09/29/2024 03/29/2024, 1211/2022, 06/15/2023 Depression Screening 09/30/2024 09/30/2023 GFR 12/28/2024 06/27/2024, 0803/2024, 06/07/2024, Additional history exists Diabetic Eye Exam 01/20/2025 01/21/2024, , 05/26/2022 Diabetic Foot Exam 04/12/2025 04/12/2024, 04/12/2024 Albumin/Creatinine Ratio 05/09/2025 024, 06/15/2023, 06/03/2022 CKD HGB USE SMARTSET 89588 06/27/202506/27, 06/27/2024, 06/20/2024, Additional history exists DTaP,Tdap,and [...] this encounter Medical Devices Implanted Type Area Lithostripper Device Identifier Shelf Expiration Date Model / Serial / Lot Sureclip 16mm 235cm - [id number] Implanted:Qty: 1 on 03/16/2023 by [place] Iyer MD at OR [facility] MICRO TECH ENDOSCOPY [id number] 05/19/2025 [id number] / / [id number] Duraclip 16mm Xlg Repostn - [id number] Implanted:Qty: 1 on 03/16/2023 by [place] Iyer MD at OR [facility] DocASAP PHILLIP [id number] 05/18/2024 [id number] / / [id number] Duraclip 16mm Xlg Repostn - [id number] Implanted:Qty: 1 on 03/16/2023 by Irving Iyer MD at OR [facility] croboMED PHILLIP [id number] 05/18/2024 [id number] / / [id number] Duraclip 16mm Xlg Repostn - [id number] Implanted:Qty: 1 on 03/16/2023 by [place] Iyer MD at OR [facility] CONMED PHILLIP [id number] 05/18/2024 [id number] / / [id number] Duraclip 16mm Xlg Repostn - [id number] Implanted:Qty: 1 on 03/16/2023 by [place] Iyer MD at OR [facility] CONMED PHILLIP [id number] 05/18/2024 [id number] / / [id number] Duraclip 16mm Xlg Repostn - [id number] Implanted:Qty: 1 on 03/16/2023 by [place] Iyer MD at OR [facility] cro[employer]MED PHILLIP [id number] 05/18/2024 [id number] / / [id number] Duraclip 16mm Xlg Repostn - [id number] Implanted:Qty: 1 on 03/16/2023 by [place] Iyer MD at OR [facility] cro[employer]MED PHILLIP [id number] 05/19/2024 [id number] / / [id number] Duraclip 16mm Xlg Repostn - [id number] Implanted:Qty: 1 on 03/16/2023 by Irving Iyer MD at OR [facility] cro[employer]MED [employer] [id number] 05/19/2024 [id number] / / [id number] Duraclip 16mm Xlg Repostn - [id number] Implanted:Qty: 1 on 03/16/2023 by [place] Iyer MD at OR [facility] CONMED PHILLIP [id number] 05/19/2024 [id number] / / [id number] Duraclip 16mm Xlg Repostn - [id number] Implanted:Qty: 1 on 03/16/2023 by [place] Iyer MD at OR [facility] cro[employer]MED PHILLIP [id number] 05/18/2024 [id number] / / [id number] Duraclip 16mm Xlg Repostn - [id number] Implanted:Qty: 1 on 03/16/2023 by [place] Iyer MD at OR [facility] CONMED PHILLIP [id number] 05/18/2024 [id number] / / [id number] Duraclip 16mm Xlg Repostn - [id number] Implanted:Qty: 1 on 03/16/2023 by Irving Iyer MD at OR [facility] CONMED PHILLIP [id number] 05/18/2024 [id number] / / [id number] Duraclip 16mm Xlg Repostn - [id number] Implanted:Qty: 1 on 03/16/2023 by [place] Iyer MD at OR [facility] CONMED PHILLIP [id number] 05/18/2024 [id number] / / [id number] Duraclip 16mm Xlg Repostn - [id number] Implanted:Qty: 1 on 03/16/2023 by [place] Iyer MD at OR [facility] CONMED PHILLIP [id number] 05/18/2024 [id number] / / [id number] documented as of this encounter Visit Diagnoses Diagnosis Multiple myeloma not having achieved remission (HCC)- Primary Multiple myeloma, without mention of having achieved remission History of colonic polyps Personal history of colonic polyps documented in this encounter Care Teams Steamboat Captain Relationship Specialty Start Date End Date Jean Claude Yao DO [address] [facility] [place] [address] PCP - General Internal Medicine 05/09/24 documented as of this encounter
--- OUTSIDE RECORDS SUMMARY | 2024-07-27 10:43 | External Medical Summary ---
Author Name Unknown Address Unknown Organization K[facility] [place] [address] Laboratory Report Ordering Provider Test Date Status PEREZ,CARLENE 06/27/2024 08:02:40 Final Observation Date Value Abnormality Reference (Units ) Status Nucleated erythrocytes/100 leukocytes [Ratio] in Blood by Automated count 06/27/2024 08:02:40 Final Ovalocytes [Presence] in Blood by Light microscopy 06/27/2024 08:02:40 Moderate Abnormal None Seen Final Performing Location [facility] [address]
--- OUTSIDE RECORDS SUMMARY | 2024-07-27 10:43 | External Medical Summary ---
Author Name Unknown Address Unknown Organization K09:[facility] [place] [address] Laboratory Report Ordering Provider Test Date Status CARLENE PEREZ 06/27/2024 08:02:40 Final Observation Date Value Abnormality Reference (Units ) Status SYNC LEUKOCYTES IN BLOOD BY AUTOMATED COUNT 06/27/2024 08:02:40 2.16 Below low normal 4.00-10.80 (K/uL) Final Segs 06/27/2024 08:02:40 27.3 Below low normal 40.0-75.0 (%) Final Lymphs % 06/27/2024 08:02:40 32.4 18.0-42.0 (%) Final Monos 06/27/2024 08:02:40 18.5 Above high normal 1.0-11.0 (%) Final Eosinophils 06/27/2024 08:02:40 21.8 Above high normal 0.0-6.0 (%) Final Basos 06/27/2024 08:02:40 0.0 0.0-2.0 (%) Final Absolute Segs 06/27/2024 08:02:40 0.59 Below low normal 1.80-7.70 (K/uL) Final Lymphs, absolute 06/27/2024 08:02:40 0.70 Below low normal 1.00-4.80 (K/ul) Final Monos, Abs 06/27/2024 08:02:40 0.40 0.00-1.10 (K/uL) Final Eos, Abs 06/27/2024 08:02:40 0.47 0.00-0.70 (K/uL) Final Basos, Abs 06/27/2024 08:02:40 0.00 0.00-0.20 (K/uL) Final Performing Location [facility] [place] [address]
--- OUTSIDE RECORDS SUMMARY | 2024-07-27 10:43 | External Medical Summary | Summary of Care ---
Author Name Unknown Organization [facility] Address [address] [place] [address] Phone [phone] Care Team Providers Care Accountant Manager Name Role Phone Jean Claude Yao DO Primary Care Provider [phone] Reason for Visit * Reason Comments Chemotherapy Hold Velcade, darzal ex faspro Encounter Details Date Type Department Care Team (Late st Contact Info) Description 06/27/2024 9:00 AM EDT Hem/Onc Treatment Hematology/Oncology Treatment, [place] [address] [place] [address] Laure, Chair 3 Hem Onc [facility] [address] [place] [address] Allergies No known active allergiesdocumented as of [...] Sign Reading Time Taken Comments Blood Pressure 96/60 06/27/2024 8:55 AM EDT Pulse 65 06/27/2024 8:55 AM EDT Temperature 36.1 C (97 F) 06/27/2024 8:55 AM EDT Respiratory Rate 16 06/27/2024 8:55 AM EDT Oxygen Saturation 98% 06/27/2024 8:55 AM EDT Inhaled Oxygen Concentration - - Weight 92.7 kg (204 lb 6.4 oz) 06/27/2024 8:55 A M EDT Height - - Body Mass Index 27.72 05/27/2024 9:16 AM EDT documented in this encounter Nursing Notes * Leni Sanchez RN - 06/27/2024 9:33 AM EDT Chair 12. Patient has labs done this morning which showed ANC of 0.59 and platelets of 58. Patient overall is not feeling great but says he is starting to feel slightly better. He has a coldwhich started this past Monday 06/25. He said this started as a sore throat but now he is mainly congested with a dry, nonproductive cough. He has not had any fevers and temp today when checked was 97.1 F. BP today was 96/60 which is lower for patient but he is feeling sick. Denies any lightheadedness ordizziness. He says he has been drinking a lot of water at home. RN spoke with Dr. Aguiar regarding his labs and his cold symptoms. Per Dr. Aguiar, delay everything by one week. Will cancel appt for Velcade on . Patient should have labs repeated on Thursdaywhen he comes to see Dr. Aguiar. Patient said he restarted his dose reduced Revlimid yesterday 06/26. RN spoke with pharmacist Makenna Steele as well -- encouraged patient to stop taking his Revlimid and should add on an antibiotic. Dr. Aguiar ordered oral Levaquin for patient to start as well d/t neutropenia and cold symptoms. RN educated patient to stop taking his Revlimid and treatment will be delayed until next week. He follows up with Dr. Aguiar 06/29 this week as well. Patient is still okay to take Decadron this week. Patient communicated understanding about the above noted. Also, per Dr. Aguiar, patient should have labs before each treatment, even on his day 4 and 11 days when he just comes for Velcade. documented in this encounter Plan of Treatment Upcoming Encounters Date Type Department Care Team (Latest Contact Info) Description 06/29/2024 8:20 AM EDT Laboratory Laboratory [facility] Laure [place] [address] [place] [phone] Laure [facility] [place] [address] [place] [address] 06/29/2024 9:00 AM EDT Office [facility] [place] [address] [place] [phone] Abbey Aguiar MD [address] [place] [address] 07/04/2024 7:50 AM EDT Laboratory Laboratory [employer] [address] [place] [phone] Laure [facility] [place] [address] [place] [address] [address] 07/04/2024 9:00 AM EDT Hem/Onc Treatment Hematology/Oncolog y Treatment, [place] [address] [place] [address] Laure, Chair 10 Hem Onc [place] [address] [place] [address] 07/04/2024 9:00 AM EDT Pharmacy Pharmacy Hematology Oncology [facility] [address] [place] [address] [facility] Hem/Onc [address] [place] [address] 07/07/2024 8:00 AM EDT Laboratory Laboratory [facility] [place] [address] [place], [place] [phone] Laure, Lab Scen[address] [place], [place] [address] 07/07/2024 9:00 AM EDT Hem/Onc Treatment Hematology/Oncolog y Treatment, [place] [address] [facility], [place] [address] Laure, Chair 6 Hem Onc [place] [address] [place] [address] 07/11/2024 7:50 AM EDT Laboratory Laboratory [facility] [place] [address] [place] [address] Laure, Lab Scen[address] [place] [address] 07/11/2024 9:00 AM EDT Hem/Onc Treatment Hematology/Oncolog y Treatment, [place] [address] [place] [address] Laure, Chair 10 Hem Onc [address] [place] [address] 07/14/2024 9:00 AM EDT Hem/Onc Treatment Hematology/Oncolog y Treatment, [place] [address] [place] [address] Laure, Chair 6 Hem Onc [place] [address] [place] [address] 07/19/2024 8:30 AM EDT Laboratory Laboratory [facility] [address] [place] [address] Laure, Lab Scenery [address] [place] [address] 07/19/2024 9:30 AM EDT Hem/Onc Treatment Hematology/Oncolog y Treatment, [place] [address] [place] [address] Laure, Chair 8 Hem Onc [address] [place], [place] [address] 07/22/2024 9:00 AM EDT Hem/Onc Treatment Hematology/Oncolog y Treatment, [place] [address] [place] [address] Laure, Chair 6 Hem Onc [address] [place] [address] 07/25/2024 8:00 AM EDT Laboratory Laboratory [facility] [place] [address] [place] [address] Laure, Lab Scenery [address] [place] [address] 07/25/2024 9:00 AM EDT Hem/Onc Treatment Hematology/Oncolog y Treatment, [place] [address] [place] [address] Laure, Chair 3 Hem Onc [address] [place] [address] 08/01/2024 8:00 AM EDT Laboratory Laboratory [facility] [place] [address] [place] [address] Pratima Kelsey [address] [place], [place] [address] 08/01/2024 8:30 AM EDT Office Visit Hematology/Oncolog y Scenery Laure [place] [address] [place] [address] Radha Torres CRNP [address] [facility] [place] [address] 08/01/2024 9:00 AM EDT Hem/Onc Treatment Hematology/Oncolog y [facility] [place] [address] [place], [place] [phone] Laure, Chair 5 Hem Onc [place] [address] [place] [address] 08/23/2024 10:00 AM EDT Office Visit Family Practice [address] [place] [address] [address] [place] [address] Jean Claude Yao DO [address] [facility] [place] [address] 09/08/2024 2:30 PM EDT Hospital Encounter ENDO OSSC, Endoscopy Room [facility] [address] [place] [phone] Irving Iyer MD [address] [place] [address] 09/08/2024 2:30 PM EDT - 09/08/2024 3:00 PM EDT Surgery ENDO OSSC, Endoscopy Room [facility] [address] [place] [phone] Irving Iyer MD [address] [place] [address] COLONOSCOPY FLEXIBLE PROXIMAL DIAGNOSTIC 03/13/2025 11:00 AM EDT Office Visit Sleep Disorders Ctr [facility] [address] [place] [phone] Ruma Orellana, [address] [place] [address] Scheduled Procedures Name Priority Associated Diagnoses Date/Ti me COLONOSCOPY FLEXIBLE PROXIMAL DIAGNOSTIC Recall History of colonic polyps 09/08/2024 2:30 PM EDT Health Maintenance Due Date Last Done Comments Cologuard 1997 Fecal Occult Blood Test 1997 Sigmoidoscopy 1997 Adult Wellness Visit 2018 COVID-19 Vaccine (3 - Moderna risk series) 04/19/2021 03/22/2021, 02/21/2021 Zoster Vaccines (2 of 2) 02/03/2023 12/09/2022, 1211/2011 CKD PHOS USE SMARTSET 33294 06/15/2024 06/15/2023 Colonoscopy 06/29/2024 06/29/2023, 06/16, 03/16/2023, Additional history exists Colorectal Cancer Screening 06/29/2024 Influenza Vaccine (FLU shot) (#1) 2024 08/03/2023, 08/08/2022 HbA1c 09/29/2024 03/29/2024, 1211/2022, 06/15/2023 Depression Screening 09/30/2024 09/30/2023 GFR 12/28/2024 06/27/2024, 0803/2024, 06/07/2024, Additional history exists Diabetic Eye Exam 01/20/2025 01/21/2024, , 05/26/2022 Diabetic Foot Exam 04/12/2025 04/12/2024, 04/12/2024 Albumin/Creatinine Ratio 05/09/202505/09/2 024, 06/15/2023, 06/03/2022 CKD HGB USE SMARTSET 10203 06/27/202506/27, 06/27/2024, 06/20/2024, Additional history exists DTaP,Tdap,and [...] this encounter Medical Devices Implanted Type Area Bsw Device Identifier Shelf Expiration Date Model / Serial / Lot Sureclip 16mm 235cm - [id number] Implanted:Qty: 1 on 03/16/2023 by Irving Iyer MD at OR [facility] MICRO [employer]CH ENDOSCOPY [id number] 05/19/2025 [id number] / / [id number] Duraclip 16mm Xlg Repostn - [id number] Implanted:Qty: 1 on 03/16/2023 by Irving Iyer MD at OR [facility] [employer] [id number] 05/18/2024 [id number] / / [id number] Duraclip 16mm Xlg Repostn - [id number] Implanted:Qty: 1 on 03/16/2023 by Irving Iyer MD at OR [facility] [employer] [id number] 05/18/2024 [id number] / / [id number] Duraclip 16mm Xlg Repostn - [id number] Implanted:Qty: 1 on 03/16/2023 by Irving Iyer MD at OR [facility] [employer] [id number] 05/18/2024 [id number] / / [id number] Duraclip 16mm Xlg Repostn - [id number] Implanted:Qty: 1 on 03/16/2023 by Irving Iyer MD at OR [facility] [employer] [id number] 05/18/2024 [id number] / / [id number] Duraclip 16mm Xlg Repostn - [id number] Implanted:Qty: 1 on 03/16/2023 by Irving Iyer MD at OR [facility] [employer] [id number] 05/18/2024 [id number] / / [id number] Duraclip 16mm Xlg Repostn - [id number] Implanted:Qty: 1 on 03/16/2023 by Irving Iyer MD at OR [facility] [employer] [id number] 05/19/2024 [id number] / / [id number] Duraclip 16mm Xlg Repostn - [id number] Implanted:Qty: 1 on 03/16/2023 by Irving Iyer MD at OR [facility] [employer] [id number] 05/19/2024 [id number] / / [id number] Duraclip 16mm Xlg Repostn - [id number] Implanted:Qty: 1 on 03/16/2023 by Irving Iyer MD at OR [facility] [employer] [id number] 05/19/2024 [id number] / / [id number] Duraclip 16mm Xlg Repostn - [id number] Implanted:Qty: 1 on 03/16/2023 by Irving Iyer MD at OR [facility] [employer] [id number] 05/18/2024 [id number] / / [id number] Duraclip 16mm Xlg Repostn - [id number] Implanted:Qty: 1 on 03/16/2023 by Irving Iyer MD at OR [facility] [employer] [id number] 05/18/2024 [id number] / / [id number] Duraclip 16mm Xlg Repostn - [id number] Implanted:Qty: 1 on 03/16/2023 by Irving Iyer MD at OR [facility] [employer] [id number] 05/18/2024 [id number] / / [id number] Duraclip 16mm Xlg Repostn - [id number] Implanted:Qty: 1 on 03/16/2023 by Irving Iyer MD at OR [facility] [employer] [id number] 05/18/2024 [id number] / / [id number] Duraclip 16mm Xlg Repostn - [id number] Implanted:Qty: 1 on 03/16/2023 by Irving Iyer MD at OR [facility] [email or web address] [id number] 05/18/2024 [id number] / / [id number] documented as of this encounter Care Teams Accountant Manager Relationship Specialty Start Date End Date Jean Claude Yao DO [address] [place] [place] [address] PCP - General Internal Medicine 05/09/24 documented as of this encounter
--- OUTSIDE RECORDS SUMMARY | 2024-07-27 10:44 | External Medical Summary | Summary of Care ---
Author Name Unknown Organization [facility] Address [address] [place] [address] Phone [phone] Care Team Providers Care Beam House Inspector Name Role Phone Jean Claude Yao DO Primary Care Provider [phone] Encounter Details Date Type Department Care Team (Late st Contact Info) Description 06/21/2024 Telephone Hematology/Oncology, [facility] [address] [place] [address] Abbey Aguiar MD [address] [facility] [place] [phone] Allergies No known active allergiesdocumented as of this encounter (statuses as of 06/23/2024) Medications Medication Sig Dispensed Refills Start Date [...] a week. 20 Tablet 5 05/11/2024 Active Lenalidomide 10 MG Oral Capsule (Revlimid)Indicat ions:Smoldering multiple myeloma (SMM) Take 1 Capsule by mouth in the morning. Days 1-21 every 28 days. 21 Capsule 05/27/2024 Active Acyclovir 400 MG Oral Tablet (Zovirax)Indicati ons:Smoldering multiple myeloma (SMM) Take 1 Tablet by mouth in the morning and 1 Tablet before bedtime. 60 Tablet 3 06/20/2024 Active documented as of this encounter (statuses as of 06/23/2024) Active Problems Problem Noted Date Diagnosed Date [...] as of this encounter (statuses as of 06/23/2024) Resolved Problems Problem Noted Date Diagnosed Date Resolved Date Prediabetes 10/26/2023 12/31/2023 Overview: Per Prediabetes protocol Hypertensive kidney disease with stage 3a chronic kidney disease 07/02/2023 03/29/2024 Lesion of pancreas 12/09/2022 4 documented as of this encounter (statuses as of 06/23/2024) Immunizations Name Administration Dates Next Due COVID-19 [...] encounter Miscellaneous Notes * Telephone Encounter - Soraida Fields CPhT - 06/23/2024 1:38 PM EDT Pharmacy calling in regarding medication. Transferred to oral chemo line. 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 Aguiar Caller: Patient Incoming Request: Patient has questions regarding oral chemotherapy Action: Other: Spoke with [facility] via teams Additional Notes: Questioning Lenalidomide cycle & refill: Confimed last day of C12 was 06/18/24 and first day of C13 will be 06/26/24 - and that his Rx will be updated to on next refill. Of note, Patient is on REMs schedule for refill ordering 06/23/24. Patient would also like to know if he is to continue dexamethasone while not taking lenalidomide. Per h - yes, he is to continue taking dex even on his lenalidomide off days. Patient expressed understanding. Patient mentioned that last evening he was experiencing shakiness and a temp > 102 degrees. He called the MTM number and was advised that an biofuels production technician oncologist would follow up - no one has follow up at this time. Patient is now feeling better and temp has returned to normal. Advised Patient to seek medical assistance by calling 911 or going to the nearest ER if this were to happen again. Reminded him that during our off hours that is the procedure our Patients should follow. He expressed understanding. MEENAKSHI Londono Tech Claim Inspector Hematology Oncology Oral Chemotherapy Clinic Medication Therapy Disease Management [facility] 06/21/24,9:43 AM Time Spent on Encounter: 16 - 20 minutes Encounter Group: Hematology Encounter Interventions Item Category: Oral Chemotherapy Lenalidomide documented in this encounter Plan of Treatment Upcoming Encounters Date Type Department Care Team (Latest Contact Info) Description 06/27/2024 7:50 AM EDT Laboratory Laboratory [facility] [place] 200 [facility] [place] [phone] Laure, Lab [facility] 200 [facility] [place] [address] 06/27/2024 9:00 AM EDT Hem/Onc Treatment Hematology/Oncolog y Treatment, [place] [address] [place] [phone] Laure, Chair 3 Hem Onc [facility] [address] [place] [address] 06/29/2024 9:00 AM EDT Office Visit Hematology/Oncolog y [place] Laure [place] [address] [place] [phone] Abbey Aguiar MD 200 [facility] [place] [address] 06/30/2024 9:00 AM EDT Hem/Onc Treatment Hematology/Oncolog y Treatment, [place] 200 [facility] [place] [address] Laure, Chair 6 Hem Onc Scenery [address] [place], [place] [address] 07/04/2024 7:50 AM EDT Laboratory Laboratory [facility] [place] [facility] [address] [place], [place] [address] Laure, Lab Scenery [address] [place] [address] 07/04/2024 9:00 AM EDT Hem/Onc Treatment Hematology/Oncolog y Treatment, [place] 200 [facility] [place] [address] Laure, Chair 10 Hem Onc Scenery [address] [place] [address] 07/11/2024 7:50 AM EDT Laboratory Laboratory [facility] [address] [place] [address] Laure, Lab Scenery [address] [place] [address] 07/11/2024 9:00 AM EDT Hem/Onc Treatment Hematology/Oncolog y Treatment, [place] 200 [facility] [place] [address] Laure, Chair 10 Hem Onc Scenery [address] [place] [address] 07/11/2024 9:00 AM EDT Pharmacy Pharmacy Hematology Oncology [place] [address] [place] [address] [facility] [place], [facility] Hem/Onc [facility] [place] [address] 07/14/2024 9:00 AM EDT Hem/Onc Treatment Hematology/Oncolog y Treatment, [place] 200 [facility] [place] [address] Laure, Chair 6 Hem Onc Scenery [address] [place] [address] 07/19/2024 8:30 AM EDT Laboratory Laboratory Scenery [facility] [address] [place] [address] Park, Lab Scenery [address] [place] [address] 07/19/2024 9:30 AM EDT Hem/Onc Treatment Hematology/Oncolog y Treatment, [place] 200 [facility] [place] [address] Laure, Chair 8 Hem Onc Scenery [address] [place], [place] [address] 07/22/2024 9:00 AM EDT Hem/Onc Treatment Hematology/Oncolog y Treatment, [place] 200 [facility] [place] [address] Laure, Chair 6 Hem Onc Scenery [address] [place] [address] 07/25/2024 8:00 AM EDT Laboratory Laboratory [facility] [place] [address] [place] [address] Laure, Lab Scenery [address] [place] [address] 07/25/2024 9:00 AM EDT Hem/Onc Treatment Hematology/Oncolog y Treatment, [place] [address] [facility] [place] [address] Laure, Chair 3 Hem Onc Scenery [address] [place] [address] 08/01/2024 8:00 AM EDT Laboratory Laboratory Scenery Goff [place] [address] [place] [address] Park, Lab Scenery [address] [place], [place] [address] 08/01/2024 8:30 AM EDT Office Visit Hematology/Oncolog y Scenery [place]ure [place] [address] [place] [phone] Radha Torres CRNP 400 [facility] [place] [address] 08/01/2024 9:00 AM EDT Hem/Onc Treatment Hematology/Oncolog y Treatment, [place] [address] [place], [place] [phone] Laure, Chair 3 Hem Onc Scenery [address] [place] [address] 08/23/2024 10:00 AM EDT Office Visit Family Practice [address] [place] [address] 293 [facility], [place] [address] Jean Claude Yao DO 293 [place] [address] 09/08/2024 2:30 PM EDT Hospital Encounter ENDO OSSC, Endoscopy Room [facility] 132 [facility] [place] [phone] Irving Iyer MD [address] [place] [address] 09/08/2024 2:30 PM EDT - 09/08/2024 3:00 PM EDT Surgery ENDO OSSC, Endoscopy Room [facility] [address] [place] [phone] Irving Iyer MD [address] [place] [address] COLONOSCOPY FLEXIBLE PROXIMAL DIAGNOSTIC 03/13/2025 11:00 AM EDT Office Visit Sleep Disorders Ctr [facility] [address] [place] [address] Ruma Orellana, [address] [place] [address] Scheduled Procedures Name Priority Associated Diagnoses Date/Ti me COLONOSCOPY FLEXIBLE PROXIMAL DIAGNOSTIC Recall History of colonic polyps 09/08/2024 2:30 PM EDT Health Maintenance Due Date Last Done Comments Cologuard 1997 Fecal Occult Blood Test 1997 Sigmoidoscopy 1997 Adult Wellness Visit 2018 COVID-19 Vaccine (3 - Moderna risk series) 04/19/2021 03/22/2021, 02/21/2021 Zoster Vaccines (2 of 2) 02/03/2023 12/09/2022, 1211/2011 CKD PHOS USE SMARTSET 70205 06/15/2024 06/15/2023 Colonoscopy 06/29/2024 06/29/2023, 06/16, 03/16/2023, Additional history exists Colorectal Cancer Screening 06/29/2024 Influenza Vaccine (FLU shot) (#1) 2024 08/03/2023, 08/08/2022 HbA1c 09/29/2024 03/29/2024, 11/2022, 06/15/2023 Depression Screening 09/30/2024 09/30/2023 GFR 12/21/2024 06/20/2024, 05/17, 05/30/2024, Additional history exists Diabetic Eye Exam 01/20/2025 01/21/2024, , 05/26/2022 Diabetic Foot Exam 04/12/2025 04/12/2024, 04/12/2024 Albumin/Creatinine Ratio 05/09/2025 024, 06/15/2023, 06/03/2022 CKD HGB USE SMARTSET 33840 06/20/202506/20, 06/20/2024, 06/07/2024, Additional history exists DTaP,Tdap,and [...] this encounter Medical Devices Implanted Type Area Ichthyologist Device Identifier Shelf Expiration Date Model / Serial / Lot Sureclip 16mm 235cm - [id number] Implanted:Qty: 1 on 03/16/2023 by Irving Iyer MD at OR [facility] MICRO TECH ENDOSCOPY [id number] 05/19/2025 [id number] / / [id number] Duraclip 16mm Xlg Repostn - [id number] Implanted:Qty: 1 on 03/16/2023 by Irving Iyer MD at OR [facility] [employer] [id number] 05/18/2024 [id number] / / [id number] Duraclip 16mm Xlg Repostn - [id number] Implanted:Qty: 1 on 03/16/2023 by Irving Iyer MD at OR [facility] [employer] [id number] 05/18/2024 [id number] / / [id number] Duraclip 16mm Xlg Repostn - [id number] Implanted:Qty: 1 on 03/16/2023 by Irving Iyer MD at OR [facility] [employer] [id number] 05/18/2024 [id number] / / [id number] Duraclip 16mm Xlg Repostn - [id number] Implanted:Qty: 1 on 03/16/2023 by Irving Iyer MD at OR [facility] [employer] [id number] 05/18/2024 [id number] / / [id number] Duraclip 16mm Xlg Repostn - [id number] Implanted:Qty: 1 on 03/16/2023 by Irving Iyer MD at OR [facility] [employer] [id number] 05/18/2024 [id number] / / [id number] Duraclip 16mm Xlg Repostn - [id number] Implanted:Qty: 1 on 03/16/2023 by Irving Iyer MD at OR [facility] [employer] [id number] 05/19/2024 [id number] / / [id number] Duraclip 16mm Xlg Repostn - [id number] Implanted:Qty: 1 on 03/16/2023 by Irving Iyer MD at OR [facility] [employer] [id number] 05/19/2024 [id number] / / [id number] Duraclip 16mm Xlg Repostn - [id number] Implanted:Qty: 1 on 03/16/2023 by Irving Iyer MD at OR [facility] [employer] [id number] 05/19/2024 [id number] / / [id number] Duraclip 16mm Xlg Repostn - [id number] Implanted:Qty: 1 on 03/16/2023 by Irving Iyer MD at OR [facility] [employer] [id number] 05/18/2024 [id number] / / [id number] Duraclip 16mm Xlg Repostn - [id number] Implanted:Qty: 1 on 03/16/2023 by Irving Iyer MD at OR [facility] [employer] [id number] 05/18/2024 [id number] / / [id number] Duraclip 16mm Xlg Repostn - [id number] Implanted:Qty: 1 on 03/16/2023 by Irving Iyer MD at OR [facility] [employer] [id number] 05/18/2024 [id number] / / [id number] Duraclip 16mm Xlg Repostn - [id number] Implanted:Qty: 1 on 03/16/2023 by Irving Iyer MD at OR [facility] [employer] [id number] 05/18/2024 [id number] / / [id number] Duraclip 16mm Xlg Repostn - [id number] Implanted:Qty: 1 on 03/16/2023 by Irving Iyer MD at OR [facility] [employer] [id number] 05/18/2024 [id number] / / [id number] documented as of this encounter Visit Diagnoses Diagnosis Smoldering multiple myeloma (SMM)- Primary Multiple myeloma, without mention of having achieved remission History of colonic polyps Personal history of colonic polyps documented in this encounter Care Teams Beam House Inspector Relationship Specialty Start Date End Date Jean Claude Yao DO [address] [place] [address] PCP - General Internal Medicine 05/09/24 documented as of this encounter
--- OUTSIDE RECORDS SUMMARY | 2024-07-27 10:44 | External Medical Summary | Summary of Care ---
Author Name Unknown Organization [facility] Address [address] [place] [address] Phone [phone] Care Team Providers Care Operations Recruiter Name Role Phone Jean Claude Yao DO Primary Care Provider Reason for Visit * Reason Onset Date Comments Advice 06/21/2024 Encounter Details Date Type Department Care Team (Late st Contact Info) Description 06/21/2024 Telephone Hematology/Oncology [facility] [place] [address] [facility] [place] [address] Abbey Aguiar MD 200 [facility] [place] [address] Advice Allergies No known active allergiesdocumented as of this encounter (statuses as of 06/21/2024) Medications Medication Sig Dispensed Refills Start Date [...] as of this encounter (statuses as of 06/21/2024) Active Problems Problem Noted Date Diagnosed Date [...] as of this encounter (statuses as of 06/21/2024) Resolved Problems Problem Noted Date Diagnosed Date Resolved Date Prediabetes 10/26/2023 12/31/2023 Overview: Per Prediabetes protocol Hypertensive kidney disease with stage 3a chronic kidney disease 07/02/2023 03/29/2024 Lesion of pancreas 12/09/2022 documented as of this encounter (statuses as of 06/21/2024) Immunizations Name Administration Dates Next Due COVID-19 [...] encounter Miscellaneous Notes * Telephone Encounter - Kiran Live RN - 06/21/2024 1:17 PM EDT Spoke to patients Brenna on the phone. She states the following: - Pt started to have fever of 102 last night with shaking after feeling ok s/p C1,D1 of Darzalex/Velcade. - They called the steel construction worker # and eventually ended up speaking with the triage nurse who advised to go to the ED. They didn't go, patient is not having any symptoms and fever came back down. I spoke to that sometimes this may happen with the treatment he is receiving. In the future ifhe develops a fever to please call our office as she previously did and he may take Tylenol/Benadryl. She verbalized understanding. documented in this encounter Plan of Treatment Upcoming Encounters Date Type Department Care Team (Latest Contact Info) Description 06/22/2024 9:00 AM EDT Pharmacy Pharmacy Hematology Oncology [place] [address] [place] [address] [facility] Hem/Onc [facility] [place] [address] 06/23/2024 10:00 AM EDT Hem/Onc Treatment Hematology/Oncolog y Treatment, [place] 200 [place] [address] Laure, Chair 1 Hem Onc Scenery [address] [place], [place] [address] 06/27/2024 7:50 AM EDT Laboratory Laboratory Scenery Laure [place] [address] [place], [place] [address] Laure, Lab Scenery [address] [place], [place] [address] 06/27/2024 9:00 AM EDT Hem/Onc Treatment Hematology/Oncolog y Treatment, [place] 200 [facility], [place] [address] Laure, Chair 3 Hem Onc Scenery [address] [place], [place] [address] 06/29/2024 9:00 AM EDT Office Visit Hematology/Oncolog y Scenery La[place] [address] [place], [place] [address] Abbey Aguiar MD [address] [place], [place] [address] 06/30/2024 9:00 AM EDT Hem/Onc Treatment Hematology/Oncolog y Treatment, [place] 200 [facility], [place] [phone] Laure, Chair 6 Hem Onc Scenery [address] [place], [place] [address] 07/04/2024 7:50 AM EDT Laboratory Laboratory Scenery Laure [place] [address] [place], [place] [address] Laure, Lab Scenery [address] [place], [place] [address] 07/04/2024 9:00 AM EDT Hem/Onc Treatment Hematology/Oncolog y Treatment, [place] 200 [place] [address] Laure, Chair 10 Hem Onc Scenery [address] [place] [address] 07/11/2024 7:50 AM EDT Laboratory Laboratory [address]ery [place] [address] [place] [address] Laure, Lab Scenery [address] [place] [address] 07/11/2024 9:00 AM EDT Hem/Onc Treatment Hematology/Oncolog y Treatment, [place] 200 [place] [address] Laure, Chair 10 Hem Onc Scenery [address] [place] [address] 07/14/2024 9:00 AM EDT Hem/Onc Treatment Hematology/Oncolog y Treatment, [place] 200 [place] [address] Laure, Chair 6 Hem Onc Scenery [address] [place] [address] 07/19/2024 8:30 AM EDT Laboratory Laboratory [address]enery Laure [place] [address] [place] [address] Laure, Lab Scenery [address] [place] [address] 07/19/2024 9:30 AM EDT Hem/Onc Treatment Hematology/Oncolog y Treatment, [place] 200 [place] [address] Laure, Chair 8 Hem Onc Scenery [address] [place] [address] 07/22/2024 9:00 AM EDT Hem/Onc Treatment Hematology/Oncolog y Treatment, [place] 200 [place] [address] Laure, Chair 6 Hem Onc Scenery [address] [place] [address] 07/25/2024 8:00 AM EDT Laboratory Laboratory [facility] [place] [address] [place], [place] [phone] Laure, Lab Scenery [address] [facility] [place], [place] [address] 07/25/2024 9:00 AM EDT Hem/Onc Treatment Hematology/Oncolog y Treatment, [place] 200 [facility], [place] [address] Laure, Chair 3 Hem Onc Scenery [address] [place], [place] [address] 08/01/2024 8:00 AM EDT Laboratory Laboratory [facility] [place] [address] [place], [place] [phone] Laure, Lab Scenery [address] [facility] [place], [place] [address] 08/01/2024 8:30 AM EDT Office Visit Hematology/Oncolog y [facility] [place] [address] [place], [place] [phone] Radha Torres CRNP [address] [place] [address] 08/01/2024 9:00 AM EDT Hem/Onc Treatment Hematology/Oncolog y Treatment, [place] 200 [facility], [place] [address] Laure, Chair 3 Hem Onc Scenery [address] [place], [place] [address] 08/23/2024 10:00 AM EDT Office Visit Family Practice [address] [facility], [place] 293 [facility] [place] [address] Jean Claude Yao, 293 [place] [address] 09/08/2024 2:30 PM EDT Hospital Encounter ENDO OSSC, Endoscopy Room [facility] [address] [place] [address] Irving Iyer MD [address] [place] [address] 09/08/2024 2:30 PM EDT - 09/08/2024 3:00 PM EDT Surgery ENDO OSSC, Endoscopy Room [facility] [address] [place] [phone] Irving Iyer MD [address] [place] [address] COLONOSCOPY FLEXIBLE PROXIMAL DIAGNOSTIC 03/13/2025 11:00 AM EDT Office Visit Sleep Disorders Ctr [facility] [address] [place] [phone] Ruma Orellana DO [address] [place] [address] Scheduled Procedures Name Priority Associated Diagnoses Date/Ti me COLONOSCOPY FLEXIBLE PROXIMAL DIAGNOSTIC Recall History of colonic polyps 09/08/2024 2:30 PM EDT Health Maintenance Due Date Last Done Comments Cologuard 1997 Fecal Occult Blood Test 1997 Sigmoidoscopy 1997 Adult Wellness Visit 2018 COVID-19 Vaccine (3 - Moderna risk series) 04/19/2021 03/22/2021, 02/21/2021 Zoster Vaccines (2 of 2) 02/03/2023 12/09/2022, 12/11/2011 CKD PHOS USE SMARTSET 17746 06/15/2024 06/15/2023 Colonoscopy 06/29/2024 06/29/2023, 06/16, 03/16/2023, Additional history exists Colorectal Cancer Screening 06/29/2024 Influenza Vaccine (FLU shot) (#1) 2024 08/03/2023, 08/08/2022 HbA1c 09/29/2024 03/29/2024, 12/0 11/2022, 06/15/2023 Depression Screening 09/30/2024 09/30/2023 GFR 12/21/2024 06/20/2024, 05/17, 05/30/2024, Additional history exists Diabetic Eye Exam 01/20/2025 01/21/2024, , 05/26/2022 Diabetic Foot Exam 04/12/2025 04/12/2024, 04/12/2024 Albumin/Creatinine Ratio 05/09/2025 024, 06/15/2023, 06/03/2022 CKD HGB USE SMARTSET 68083 06/20/202506/20, 06/20/2024, 06/07/2024, Additional history exists DTaP,Tdap,and [...] this encounter Medical Devices Implanted Type Area Radiology Administrator Device Identifier Shelf Expiration Date Model / Serial / Lot Sureclip 16mm 235cm - [id number] Implanted:Qty: 1 on 03/16/2023 by [place] Iyer MD at OR [facility] MICRO TECH ENDOSCOPY [id number] 05/19/2025 [id number] / / [id number] Duraclip 16mm Xlg Repostn - [id number] Implanted:Qty: 1 on 03/16/2023 by [place] Iyer MD at OR [facility] [employer] [id number] 05/18/2024 [id number] / / [id number] Duraclip 16mm Xlg Repostn - [id number] Implanted:Qty: 1 on 03/16/2023 by Irving Iyer MD at OR [facility] [employer] [id number] 05/18/2024 [id number] / / [id number] Duraclip 16mm Xlg Repostn - [id number] Implanted:Qty: 1 on 03/16/2023 by Irving Iyer MD at OR [facility] [employer] [id number] 05/18/2024 [id number] / / [id number] Duraclip 16mm Xlg Repostn - [id number] Implanted:Qty: 1 on 03/16/2023 by Irving Iyer MD at OR [facility] [employer] [id number] 05/18/2024 [id number] / / [id number] Duraclip 16mm Xlg Repostn - [id number] Implanted:Qty: 1 on 03/16/2023 by Irving Iyer MD at OR [facility] [employer] [id number] 05/18/2024 [id number] / / [id number] Duraclip 16mm Xlg Repostn - [id number] Implanted:Qty: 1 on 03/16/2023 by Irving Iyer MD at OR [facility] [employer] [id number] 05/19/2024 [id number] / / [id number] Duraclip 16mm Xlg Repostn - [id number] Implanted:Qty: 1 on 03/16/2023 by Irving Iyer MD at OR [facility] [employer] [id number] 05/19/2024 [id number] / / [id number] Duraclip 16mm Xlg Repostn - [id number] Implanted:Qty: 1 on 03/16/2023 by Irving Iyer MD at OR [facility] [employer] [id number] 05/19/2024 [id number] / / [id number] Duraclip 16mm Xlg Repostn - [id number] Implanted:Qty: 1 on 03/16/2023 by Irving Iyer MD at OR [facility] [employer] [id number] 05/18/2024 [id number] / / [id number] Duraclip 16mm Xlg Repostn - [id number] Implanted:Qty: 1 on 03/16/2023 by Irving Iyer MD at OR [facility] [employer] [id number] 05/18/2024 [id number] / / [id number] Duraclip 16mm Xlg Repostn - [id number] Implanted:Qty: 1 on 03/16/2023 by Irving Iyer MD at OR [facility] [employer] [id number] 05/18/2024 [id number] / / [id number] Duraclip 16mm Xlg Repostn - [id number] Implanted:Qty: 1 on 03/16/2023 by Irving Iyer MD at OR [facility] [employer] [id number] 05/18/2024 [id number] / / [id number] Duraclip 16mm Xlg Repostn - [id number] Implanted:Qty: 1 on 03/16/2023 by [place] Iyer MD at OR [facility] [employer] [id number] 05/18/2024 [id number] / / [id number] documented as of this encounter Care Teams Operations Recruiter Relationship Specialty Start Date End Date Jean Claude Yao DO [address] [place] [address] PCP - General Internal Medicine 05/09/24 documented as of this encounter
--- OUTSIDE RECORDS SUMMARY | 2024-07-27 10:44 | External Medical Summary | Summary of Care ---
Author Name Unknown Organization [facility] Address [address] [place] [address] Phone [phone] Care Team Providers Care Six Pack Loader Operator Name Role Phone Jean Claude Yao DO Primary Care Provider [phone] Encounter Details Date Type Department Care Team (Late st Contact Info) Description 06/21/2024 Telephone Hematology/Oncology, [facility] [address] [place] [address] Abbey Aguiar MD [address] [facility] [place] [id number] Allergies No known active allergiesdocumented as of [...] encounter Miscellaneous Notes * Telephone Encounter - Kristin Borrero, front end application developer - 06/21/2024 9:25 AM EDT MEDICATION THERAPY MANAGEMENT LENALIDOMIDE TREATMENT STATUS NOTE Jeff Martin [id number] Patient Phone Numbers Communication: Spoke to Caller Treatment: Medication: Lenalidomide (Revlimid) 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 Aguiar Caller: Patient Incoming Request: Patient has questions regarding oral chemotherapy Action: Other: Spoke with [facility] via teams Additional Notes: Questioning Lenalidomide cycle [...] continue dexamethasone while not taking lenalidomide. Per [facility] - yes, he is to continue taking dex even on his lenalidomide off days. Patient expressed understanding. Patient mentioned that last evening he was experiencing shakiness and a temp > 102 degrees. He called the [facility] number and was advised that an automation qa tester oncologist would follow up - no one [...] follow. He expressed understanding. MEENAKSHI Londono Tech Wax Coating Machine Tender Hematology Oncology Oral Chemotherapy Clinic Medication Therapy Disease Management [facility] 06/21/24,9:43 AM Time Spent on Encounter: 16 - 20 minutes Encounter Group: Hematology Encounter Interventions Item Category: Oral Chemotherapy Lenalidomide documented in this encounter Plan of Treatment Upcoming Encounters Date Type Department Care Team (Latest Contact Info) Description 06/22/2024 9:00 AM EDT Pharmacy Pharmacy Hematology Oncology [facility] [address] [place] [address] [facility] Clinic Hem/Onc [facility] [place] [address] 06/23/2024 10:00 AM EDT Hem/Onc Treatment Hematology/Oncolog y Treatment, [address], [place] [phone] Laure, Chair 1 Hem Onc [facility] [address] [facility] [place] [address] 06/27/2024 7:50 AM EDT Laboratory Laboratory [facility] Laure [place] [address] [place] [phone] Laure, Lab [facility] [address] [place] [address] 06/27/2024 9:00 AM EDT Hem/Onc Treatment Hematology[address] [phone] Laure, Chair [address] [facility] [address] [place] [address] 06/29/2024 9:00 AM EDT Office Visit Hematology/Oncolog y [facility] La[place] [address] [address] [place], [place] [phone] Abbey Aguiar MD [address] [place] [address] 06/30/2024 9:00 AM EDT Hem/Onc Treatment Hematology/Oncolog y Treatment, [place] [address] [place] [address] Laure, Chair 6 Hem Onc Scenery [address] [place] [address] 07/04/2024 7:50 AM EDT Laboratory Laboratory Scenery Laure [place] [address] [place], [place] [phone] Laure, Lab Scenery [address] [place], [place] [address] 07/04/2024 9:00 AM EDT Hem/Onc Treatment Hematology/Oncolog y Treatment, [place] [address] [facility], [place] [phone] Laure, Chair 10 Hem Onc Scenery [address] [place] [address] 07/11/2024 7:50 AM EDT Laboratory Laboratory [facility] Laure [place] [address] [place] [address] Laure, Lab Scenery [address] [place] [address] 07/11/2024 9:00 AM EDT Hem/Onc Treatment Hematology/Oncolog y Treatment, [place] [address] [place] [address] Laure, Chair 10 Hem Onc Scenery [address] [place] [address] 07/14/2024 9:00 AM EDT Hem/Onc Treatment Hematology/Oncolog y Treatment, [place] [address] [place] [address] Park, Chair 6 Hem Onc Scenery [address] [place] [address] 07/19/2024 8:30 AM EDT Laboratory Laboratory Scenery [facility] [address] [place] [address] Laure, Lab Scenery [address] [place] [address] 07/19/2024 9:30 AM EDT Hem/Onc Treatment Hematology/Oncolog y Treatment, [place] [address] [place] [address] Laure, Chair 8 Hem Onc Scenery [address] [place] [address] 07/22/2024 9:00 AM EDT Hem/Onc Treatment Hematology/Oncolog y Treatment, [place] [address] [place] [address] Laure, Chair 6 Hem Onc Scenery [address] [place] [address] 07/25/2024 8:00 AM EDT Laboratory Laboratory [facility] [address] [place] [address] Laure, Lab Scenery [address] [place] [address] 07/25/2024 9:00 AM EDT Hem/Onc Treatment Hematology/Oncolog y Treatment, [place] [address] [place] [address] Laure, Chair 3 Hem Onc Scenery [address] [place] [address] 08/01/2024 8:00 AM EDT Laboratory Laboratory Scenery [facility] [address] [place] [address] Laure, Lab Scenery [address] [place] [address] 08/01/2024 8:30 AM EDT Office Visit Hematology/Oncolog y Scenery [facility] [address] [place], [place] [phone] Radha Torres CRNP [address] [place] [address] 08/01/2024 9:00 AM EDT Hem/Onc Treatment Hematology/Oncolog y Treatment, [place] [address] [place] [phone] Laure, Chair 3 Hem Onc Scenery [address] [place], [place] [address] 08/23/2024 10:00 AM EDT Office Visit Family Practice [address] [place] [address] [address] [place] [address] Jean Claude Yao, [address] [place] [address] 09/08/2024 2:30 PM EDT Hospital Encounter ENDO [facility], Endoscopy Room [facility] [address] [place] [phone] Irving Iyer MD [address] [place] [address] 09/08/2024 2:30 PM EDT - 09/08/2024 3:00 PM EDT Surgery ENDO [facility], Endoscopy Room [facility] [address] [place] [phone] Irving Iyer MD [address] [place] [address] COLONOSCOPY FLEXIBLE PROXIMAL DIAGNOSTIC 03/13/2025 11:00 AM EDT [facility] [address] [place] [phone] Ruma Orellana, [address] [place] [address] Scheduled Procedures Name Priority Associated Diagnoses Date/Ti me COLONOSCOPY FLEXIBLE PROXIMAL DIAGNOSTIC Recall History of colonic polyps 09/08/2024 2:30 PM EDT Health Maintenance Due Date Last Done Comments Cologuard 1997 Fecal Occult Blood Test 1997 Sigmoidoscopy 1997 Adult Wellness Visit 2018 COVID-19 Vaccine (3 - Moderna risk series) 04/19/2021 03/22/2021, 02/21/2021 Zoster Vaccines (2 of 2) 02/03/2023 12/09/2022, 1211/2011 CKD PHOS USE SMARTSET 13500 06/15/2024 06/15/2023 Colonoscopy 06/29/2024 06/29/2023, 06/16, 03/16/2023, Additional history exists Colorectal Cancer Screening 06/29/2024 Influenza Vaccine (FLU shot) (#1) 2024 08/03/2023, 08/08/2022 HbA1c 09/29/2024 03/29/2024, 1211/2022, 06/15/2023 Depression Screening 09/30/2024 09/30/2023 GFR 12/21/2024 06/20/2024, 05/17, 05/30/2024, Additional history exists Diabetic Eye Exam 01/20/2025 01/21/2024, , 05/26/2022 Diabetic Foot Exam 04/12/2025 04/12/2024, 04/12/2024 Albumin/Creatinine Ratio 05/09/2025 024, 06/15/2023, 06/03/2022 CKD HGB USE SMARTSET 42333 06/20/202506/20, 06/20/2024, 06/07/2024, Additional history exists DTaP,Tdap,and Td Vaccines (3 - Td or Tdap) 04/07/2034 04/07/2024, 04/18/2015 Pneumococcal Vaccine: 65+ Years Completed 01/12/2019, 12/15/2017 AAA Screening Completed 02/21/2023, 020 12/2022, 08/01/2022, Additional history exists RETIRED - [...] this encounter Medical Devices Implanted Type Area Paint Tester Device Identifier Shelf Expiration Date Model / Serial / Lot Sureclip 16mm 235cm - [id number] Implanted:Qty: 1 on 03/16/2023 by Irving Iyer MD at OR [facility] MICRO [employer]CH ENDOSCOPY [id number] 05/19/2025 [id number] / / [id number] Duraclip 16mm Xlg Repostn - [id number] Implanted:Qty: 1 on 03/16/2023 by Irving Iyer MD at OR [facility] [employer] [id number] 05/18/2024 [id number] / / [id number] Duraclip 16mm Xlg Repostn - [id number] Implanted:Qty: 1 on 03/16/2023 by Irving Iyer MD at OR [facility] [employer] [id number] 05/18/2024 [id number] / / [id number] Duraclip 16mm Xlg Repostn - [id number] Implanted:Qty: 1 on 03/16/2023 by Irving Iyer MD at OR [facility] [employer] [id number] 05/18/2024 [id number] / / [id number] Duraclip 16mm Xlg Repostn - [id number] Implanted:Qty: 1 on 03/16/2023 by Irving Iyer MD at OR [facility] [employer] [id number] 05/18/2024 [id number] / / [id number] Duraclip 16mm Xlg Repostn - [id number] Implanted:Qty: 1 on 03/16/2023 by Irving Iyer MD at OR [facility] [employer] [id number] 05/18/2024 [id number] / / [id number] Duraclip 16mm Xlg Repostn - [id number] Implanted:Qty: 1 on 03/16/2023 by Irving Iyer MD at OR [facility] [employer] [id number] 05/19/2024 [id number] / / [id number] Duraclip 16mm Xlg Repostn - [id number] Implanted:Qty: 1 on 03/16/2023 by Irving Iyer MD at OR [facility] [employer] [id number] 05/19/2024 [id number] / / [id number] Duraclip 16mm Xlg Repostn - [id number] Implanted:Qty: 1 on 03/16/2023 by Irving Iyer MD at OR [facility] [employer] [id number] 05/19/2024 [id number] / / [id number] Duraclip 16mm Xlg Repostn - [id number] Implanted:Qty: 1 on 03/16/2023 by Irving Iyer MD at OR [facility] [employer] [id number] 05/18/2024 [id number] / / [id number] Duraclip 16mm Xlg Repostn - [id number] Implanted:Qty: 1 on 03/16/2023 by Irving Iyer MD at OR [facility] [employer] [id number] 05/18/2024 [id number] / / [id number] Duraclip 16mm Xlg Repostn - [id number] Implanted:Qty: 1 on 03/16/2023 by Irving Iyer MD at OR [facility] [employer] [id number] 05/18/2024 [id number] / / [id number] Duraclip 16mm Xlg Repostn - [id number] Implanted:Qty: 1 on 03/16/2023 by Irving Iyer MD at OR [facility] [employer] PHILLIP [id number] 05/18/2024 [id number] / / [id number] Duraclip 16mm Xlg Repostn - [id number] Implanted:Qty: 1 on 03/16/2023 by Irving Iyer MD at OR [facility] [employer] PH[employer]IP [id number] 05/18/2024 [id number] / / [id number] documented as of this encounter Visit Diagnoses Diagnosis Smoldering multiple myeloma (SMM)- Primary Multiple myeloma, without mention of having achieved remission History of colonic polyps Personal history of colonic polyps documented in this encounter Care Teams Six Pack Loader Operator Relationship Specialty Start Date End Date Jean Claude Yao DO [address] [place] [address] PCP - General Internal Medicine 05/09/24 documented as of this encounter
--- OUTSIDE RECORDS SUMMARY | 2024-07-27 10:44 | External Medical Summary | Summary of Care ---
Author Name Unknown Organization [facility] Address [address] [place] [address] Phone [phone] Care Team Providers Care Computing Architect Name Role Phone Jean Claude Yao DO Primary Care Provider [phone] Reason for Visit * Reason Comments Medication Management Encounter Details Date Type Department Care Team (Late st Contact Info) Description 06/22/2024 9:00 AM EDT Pharmacy Pharmacy Hematology Oncology [facility] [address], [place] [id number] [facility] [place] [facility] Hem/Onc [address] [place] [address] Smoldering multiple myeloma (SMM)* Allergies No known [...] this encounter Progress Notes * Alejandrina Steele, [facility] - 06/21/2024 2:25 PM EDT MEDICATION THERAPY MANAGEMENT LENALIDOMIDE TREATMENT PROGRESS NOTE Jeff Martin [id number] Patient Phone Numbers : Brenna Rosenberg Lab: [address] [place] [address] Specialty Pharmacy: [facility] Communication: Spoke to: Patient Treatment: Medication: Lenalidomide (Revlimid) 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 Aguiar Additional Therapy: Dexamethasone 20mg weekly (on Sundays) Daratumumab - started 06/20/24 Bortezomib Supportive Care Meds: Ondansetron Prochlorperazine Prophylactic Meds: ASA Acyclovir Cycle Dates C1 06/07 - 06/27 C2 ( 15mg; Delayed) 07/12 - 08/01 C3 Delayed; 10mg 08/23 - 09/12 C4 09/22 - 10/12 C5 delayed 11/03 - 11/23 C11 05/08 - 05/28 C12 Frequency change to 06/05 - 06/18 C13 06/26 - 07/09 C14 07/17 - 07/30 (anticipated) Treatment History: None Dose adjustment / medication hold: 06/30/23-07/11/23: lenalidomide on HOLD due to cytopenias 06/2023: lenalidomide dose reduced to 15mg due to cytopenias C3 and C5 delayed due to neutropenia Interval History: Lenalidomide RX sent to pharmacy 05/27/24 Per OV 06/01/24, treatment changed to DaraVRd Per TE 06/02/24 addendum 06/06/24, daratumumab and bortezomib require [id number] for insurance approval Confirmed start date as above States he has 7 caps on hand to start next cycle No concerns, tolerating therapy well Changes to medication list since last visit? No Assessment and Plan: ANC declining to grade 2 neutropenia Per PI, no dose adjustment recommended for ANC > 1000 Will monitor closely PLT declining at grade 2 thrombocytopenia Per PI, no dose adjustment recommended for PLT > 30K Will monitor closely All other labs stable Advised pt he can start treatment as above Explained MTM can send updated RX to [facility] 06/23/24 when we can obtain new celegene auth #. At that time [facility] will be notified pt cycle changed from 28 days to 21 days Pt replied with understanding Repeat labs 06/27 to be reviewed at OV 06/29 MTM to continue to follow up with pre-cycle labs Assessment of compliance: compliant Assessment of adverse effects attributed to drug therapy: DVT - absent Rash - absent Diarrhea/Constipation - absent Edema - absent Dose adjustment needed based on lab or adverse drug reaction? No Follow up: 06/29 OV/labs; 07/11 MTM with pre-cycle labs Alejandrina Steele, PharmD, BCOP Clinical Pharmacist, [facility] Oral Chemotherapy [facility] 06/21/2024, 3:12 PM Monitoring Parameters: Estimated CrCl Serum creatinine: 1.4 mg/dL (H) 06/20/24 0838 Estimated creatinine clearance: 56.6 mL/min (A) Hepatitis panel Latest Reference Range [...] Pertinent labs: Latest Reference Range & Units 05/30/24 09:43 06/07/24 10:36 06/20/24 08:38 WBC 4.00 - 10.80 K/uL 1.57 (L) 3.44 (L) 2.26 (L) RBC 4.50 - 5.25 M/uL 2.80 2.69 2.60 HGB 14.0 - 16.8 g/dL 9.9 (L) 9.4 (L) 9.2 (L) HCT 40.0 - 48.4 % 28.8 (L) 28.8 (L) 27.9 (L) MCV 82.0 - 99.5 fL 102.9 107.1 107.3 MCH 27.0 - 34.0 pg 35.4 34.9 35.4 MCHC 32.0 - 36.0 g/dL 34.4 32.6 33.0 RDW 11.5 - 15.5 % 14.1 14.4 14.2 PLT 140 - 400 K/uL 87 (L) 128 (L) 93 (L) MPV 6.6 - 11.1 fL 10.4 8.8 10.6 CBC WITH WBC DIFFERENTIAL Rpt ! Rpt ! Rpt ! Absolute Neutrophils 1.80 - 7.70 K/uL 0.53 (L) 1.23 (L) 1.08 (L) Latest Reference Range & Units 05/30/24 09:43 06/07/24 10:36 06/20/24 08:38 Albumin 3.8 - 5.0 g/dL 3.3 (L) 3.3 (L) 3.2 (L) AST 10 - 50 U/L 13 11 10 ALT 10 - 50 U/L 17 12 14 Alkaline Phosphatase 35 - 130 U/L 80 66 75 Bilirubin, Total <=1.2 mg/dL 0.6 0.4 0.9 Time Spent on Encounter: 6 - 10 minutes Encounter Group: Hematology Encounter Interventions Item Category: Oral Chemotherapy Lenalidomide Problem/Rationale: Safety: Needs additional monitoring - Medication Requires monitoring Education: Clarification Pharmacist Intervention(s): Education provided, Lab monitoring, and Toxicity monitoring Magnitude of Intervention: Monitoring with direction (Level 1) documented in this encounter Plan of Treatment Upcoming Encounters Date Type Department Care Team (Latest Contact Info) Description 06/23/2024 10:00 AM EDT Hem/Onc Treatment Hematology[facility]olog [facility] [place] [facility] [phone] Laure, Chair 1 Hem Onc Scenery [address] [place] [address] 06/27/2024 7:50 AM EDT Laboratory Laboratory [facility] Laure [place] [address] [place] [phone] Laure, Lab [facility] [place] [address] 06/27/2024 9:00 AM EDT Hem/Onc Treatment Hematology/Oncolog y Treatment, [place] [facility], [place] [phone] Laure, Chair 3 Hem Onc Scenery [address] [place] [address] 06/29/2024 9:00 AM EDT Office Visit Hematology[facility]Oncolog y [facility] [place] [address] [place] [address] Abbey Aguiar MD [address] [place], [place] [address] 06/30/2024 9:00 AM EDT Hem/Onc Treatment Hematology/Oncolog y Treatment, [place] [facility], [place] [phone] Laure, Chair 6 Hem Onc Scenery [address] [place] [address] 07/04/2024 7:50 AM EDT Laboratory Laboratory [facility] [address] [place] [phone] Laure, Lab Scenery [address] [place] [address] 07/04/2024 9:00 AM EDT Hem/Onc Treatment Hematology/Oncolog y Treatment, [place] [facility], [place] [phone] Laure, Chair 10 Hem Onc Scenery [address] [place], [place] [address] 07/11/2024 7:50 AM EDT Laboratory Laboratory [facility] [place] [address] [place], [place] [phone] Laure, Lab Scenery [address] [place], [place] [address] 07/11/2024 9:00 AM EDT Hem/Onc Treatment Hematology/Oncolog y Treatment, [place] [facility], [place] [phone] Laure, Chair 10 Hem Onc Scenery [address] [place], [place] [address] 07/11/2024 9:00 AM EDT Pharmacy Pharmacy Hematology Oncology [address] [address] [facility] [place] Hem/Onc [facility] [place] [address] 07/14/2024 9:00 AM EDT Hem/Onc Treatment Hematology/Oncolog y Treatment, [place] [facility], [place] [phone] Laure, Chair 6 Hem Onc Scenery [address] [place], [place] [address] 07/19/2024 8:30 AM EDT Laboratory Laboratory [facility] [place] [address] [place] [address] Laure, Lab Scenery [address] [place] [address] 07/19/2024 9:30 AM EDT Hem/Onc Treatment Hematology/Oncolog y Treatment, [place] [facility] [place] [address] Park, Chair 8 Hem Onc Scenery [address] [place] [address] 07/22/2024 9:00 AM EDT Hem/Onc Treatment Hematology/Oncolog y Treatment, [place] [facility] [place] [address] Laure, Chair 6 Hem Onc Scenery [address] [place] [address] 07/25/2024 8:00 AM EDT Laboratory Laboratory Sc[facility] [place] [address] [place] [address] Laure, Lab Scenery [address] [place] [address] 07/25/2024 9:00 AM EDT Hem/Onc Treatment Hematology/Oncolog y Treatment, [place] [facility] [place] [address] Laure, Chair 3 Hem Onc Scenery [address] [place] [address] 08/01/2024 8:00 AM EDT Laboratory Laboratory Scenery Laure [place] [address] [place] [address] Laure, Lab Scenery [address] [place] [address] 08/01/2024 8:30 AM EDT Office Visit Hematology/Oncolog y Scenery Laure [place] [address] [place] [address] Radha Torres CRNP [address] [place] [address] 08/01/2024 9:00 AM EDT Hem/Onc Treatment Hematology/Oncolog y Treatment, [place] [address] [place] [address] Park, Chair 3 Hem Onc Scenery [address] [place] [address] 08/23/2024 10:00 AM EDT Office Visit Family Practice [address] [facility], [place] [address] [facility], [place] [address] Jean Claude Yao DO [address] [facility], [place] [address] 09/08/2024 2:30 PM EDT Hospital Encounter ENDO OSS, Endoscopy Room [facility] [address] [place] [phone] Irving Iyer MD [address] [place] [address] 09/08/2024 2:30 PM EDT - 09/08/2024 3:00 PM EDT Surgery ENDO [facility], Endoscopy Room [facility] [address] [place] [phone] Irving Iyer MD [address] [place] [address] COLONOSCOPY FLEXIBLE PROXIMAL DIAGNOSTIC 03/13/2025 11:00 AM EDT Office Visit Sleep Disorders Ctr [facility] [address] [place] [phone] Ruma Orellana DO [address] [place] [address] Scheduled Procedures Name Priority Associated Diagnoses Date/Ti me COLONOSCOPY FLEXIBLE PROXIMAL DIAGNOSTIC Recall History of colonic polyps 09/08/2024 2:30 PM EDT Health Maintenance Due Date Last Done Comments Cologuard 1997 Fecal Occult Blood Test 1997 Sigmoidoscopy 1997 Adult Wellness Visit 2018 COVID-19 Vaccine (3 - Moderna risk series) 04/19/2021 03/22/2021, 02/21/2021 Zoster Vaccines (2 of 2) 02/03/2023 12/09/2022, 12/11/2011 CKD PHOS USE SMARTSET 04766 06/15/2024 06/15/2023 Colonoscopy 06/29/2024 06/29/2023, 06/16, 03/16/2023, Additional history exists Colorectal Cancer Screening 06/29/2024 Influenza Vaccine (FLU shot) (#1) 2024 08/03/2023, 08/08/2022 HbA1c 09/29/2024 03/29/2024, 11/2022, 06/15/2023 Depression Screening 09/30/2024 09/30/2023 GFR 12/21/2024 06/20/2024, 05/17, 05/30/2024, Additional history exists Diabetic Eye Exam 01/20/2025 01/21/2024, , 05/26/2022 Diabetic Foot Exam 04/12/2025 04/12/2024, 04/12/2024 Albumin/Creatinine Ratio 05/09/2025 024, 06/15/2023, 06/03/2022 CKD HGB USE SMARTSET 27580 06/20/202506/20, 06/20/2024, 06/07/2024, Additional history exists DTaP,Tdap,and [...] this encounter Medical Devices Implanted Type Area Electric Melt Operator Device Identifier Shelf Expiration Date Model / Serial / Lot Sureclip 16mm 235cm - [id number] Implanted:Qty: 1 on 03/16/2023 by Irving Iyer MD at OR [facility] MICRO TECH ENDOSCOPY [id number] 05/19/2025 [id number] / / [id number] Duraclip 16mm Xlg Repostn - [id number] Implanted:Qty: 1 on 03/16/2023 by Irving Iyer MD at OR [facility] [employer] [id number] 05/18/2024 [id number] / / [id number] Duraclip 16mm Xlg Repostn - [id number] Implanted:Qty: 1 on 03/16/2023 by Irving Iyer MD at OR [facility] [employer] [id number] 05/18/2024 [id number] / / [id number] Duraclip 16mm Xlg Repostn - [id number] Implanted:Qty: 1 on 03/16/2023 by Irving Iyer MD at OR [facility] [employer] [id number] 05/18/2024 [id number] / / [id number] Duraclip 16mm Xlg Repostn - [id number] Implanted:Qty: 1 on 03/16/2023 by Irving Iyer MD at OR [facility] [employer] [id number] 05/18/2024 [id number] / / [id number] Duraclip 16mm Xlg Repostn - [id number] Implanted:Qty: 1 on 03/16/2023 by Irving Iyer MD at OR [facility] [employer] [id number] 05/18/2024 [id number] / / [id number] Duraclip 16mm Xlg Repostn - [id number] Implanted:Qty: 1 on 03/16/2023 by Irving Iyer MD at OR [facility] [employer] [id number] 05/19/2024 [id number] / / [id number] Duraclip 16mm Xlg Repostn - [id number] Implanted:Qty: 1 on 03/16/2023 by Irving Iyer MD at OR [facility] [employer] [id number] 05/19/2024 [id number] / / [id number] Duraclip 16mm Xlg Repostn - [id number] Implanted:Qty: 1 on 03/16/2023 by Irving Iyer MD at OR [facility] [employer] [id number] 05/19/2024 [id number] / / [id number] Duraclip 16mm Xlg Repostn - [id number] Implanted:Qty: 1 on 03/16/2023 by Irving Iyer MD at OR [facility] [employer] [id number] 05/18/2024 [id number] / / [id number] Duraclip 16mm Xlg Repostn - [id number] Implanted:Qty: 1 on 03/16/2023 by Irving Iyer MD at OR [facility] [employer] [id number] 05/18/2024 [id number] / / [id number] Duraclip 16mm Xlg Repostn - [id number] Implanted:Qty: 1 on 03/16/2023 by Irving Iyer MD at OR [facility] [employer] [id number] 05/18/2024 [id number] / / [id number] Duraclip 16mm Xlg Repostn - [id number] Implanted:Qty: 1 on 03/16/2023 by Irving Iyer MD at OR [facility] [employer] [id number] 05/18/2024 [id number] / / [id number] Duraclip 16mm Xlg Repostn - [id number] Implanted:Qty: 1 on 03/16/2023 by Irving Iyer MD at OR [facility] [employer] [id number] 05/18/2024 [id number] / / [id number] documented as of this encounter Visit Diagnoses Diagnosis Smoldering multiple myeloma (SMM)- Primary Multiple myeloma, without mention of having achieved remission History of colonic polyps Personal history of colonic polyps documented in this encounter Care Teams Computing Architect Relationship Specialty Start Date End Date Jean Claude Yao DO [address] [place] [address] PCP - General Internal Medicine 05/09/24 documented as of this encounter
--- OUTSIDE RECORDS SUMMARY | 2024-07-27 10:44 | External Medical Summary | Summary of Care ---
Author Name Unknown Organization [facility] Address [address] [place] [address] Phone [phone] Care Team Providers Care Medical Records Library Professor Name Role Phone Jean Claude Yao DO Primary Care Provider [phone] Encounter Details Date Type Department Care Team (Late st Contact Info) Description 06/21/2024 Telephone Hematology/Oncology, [facility] [address] [place] [address] Abbey Aguiar MD [address] [facility] [place] [id number] Allergies No known active allergiesdocumented as of [...] Notes * Telephone Encounter - Kristin Borrero, middle school science teacher - 06/21/2024 9:25 AM EDT MEDICATION THERAPY MANAGEMENT LENALIDOMIDE TREATMENT STATUS NOTE Jeff Martin [id number] Patient Phone Numbers Communication: Spoke to Caller Treatment: Medication: Lenalidomide (Revlimid) 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 Aguiar Caller: Patient Incoming Request: Patient has questions regarding oral chemotherapy Action: Other: Spoke with [facility] via teams Additional Notes: Questioning [...] continue dexamethasone while not taking lenalidomide. Per [facility] - yes, he is to continue taking dex even on his lenalidomide off days. Patient expressed understanding. Patient mentioned that last evening he was experiencing shakiness and a temp > 102 degrees. He called the [facility] number and was advised that an customer solutions coordinator oncologist would follow up - no one [...] follow. He expressed understanding. MEENAKSHI Londono Tech Paint Crew Supervisor Hematology Oncology Oral Chemotherapy Clinic Medication Therapy Disease Management [facility] 06/21/24,9:43 AM Time Spent on Encounter: 16 - 20 minutes Encounter Group: Hematology Encounter Interventions Item Category: Oral Chemotherapy Lenalidomide documented in this encounter Plan of Treatment Upcoming Encounters Date Type Department Care Team (Latest Contact Info) Description 06/22/2024 9:00 AM EDT Pharmacy Pharmacy Hematology Oncology [facility] [address] [place] [address] [facility], [facility] Hem/Onc [facility] [place] [address] 06/23/2024 10:00 AM EDT Hem/Onc Treatment Hematology/Oncolog y Treatment, [address], [place] [phone] Laure, Chair 1 Hem Onc [facility] 200 [facility] [place] [address] 06/27/2024 7:50 AM EDT Laboratory Laboratory [facility] Laure [place] [address] [place] [phone] Laure, Lab [facility] [address] [place] [address] 06/27/2024 9:00 AM EDT Hem/Onc Treatment Hematology/Oncolog [address], [address] [address] Laure, Chair 3 Hem Onc [facility] [place] [address] [place] [address] 06/29/2024 9:00 AM EDT Office Visit Hematology/Oncolog y [facility] [place] [address] [address] [place], [place] [address] Abbey Aguiar MD [address] [place] [address] 06/30/2024 9:00 AM EDT Hem/Onc Treatment Hematology/Oncolog y Treatment, [place] [address] [place] [address] Laure, Chair 6 Hem Onc Scenery [address] [place] [address] 07/04/2024 7:50 AM EDT Laboratory Laboratory Scenery Laure [place] [address] [place], [place] [address] Laure, Lab Scenery [address] [place], [place] [address] 07/04/2024 9:00 AM EDT Hem/Onc Treatment Hematology/Oncolog y Treatment, [place] 200 [facility], [place] [address] Laure, Chair 10 Hem Onc Scenery [address] [place] [address] 07/11/2024 7:50 AM EDT Laboratory Laboratory [facility] Laure [place] [address] [place] [address] Laure, Lab Scenery [address] [place] [address] 07/11/2024 9:00 AM EDT Hem/Onc Treatment Hematology/Oncolog y Treatment, [place] [address] [place] [address] Laure, Chair 10 Hem Onc Scenery [address] [place] [address] 07/14/2024 9:00 AM EDT Hem/Onc Treatment Hematology/Oncolog y Treatment, [place] [address] [place] [address] Park, Chair 6 Hem Onc Scenery [address] [place] [address] 07/19/2024 8:30 AM EDT Laboratory Laboratory Scenery [facility] [address] [place] [address] Laure, Lab Scenery [address] [place] [address] 07/19/2024 9:30 AM EDT Hem/Onc Treatment Hematology/Oncolog y Treatment, [place] [address] [place] [address] Laure, Chair 8 Hem Onc Scenery [address] [place] [address] 07/22/2024 9:00 AM EDT Hem/Onc Treatment Hematology/Oncolog y Treatment, [place] [address] [place] [address] Laure, Chair 6 Hem Onc Scenery [address] [place] [address] 07/25/2024 8:00 AM EDT Laboratory Laboratory [facility] [address] [place] [address] Laure, Lab Scenery [address] [place] [address] 07/25/2024 9:00 AM EDT Hem/Onc Treatment Hematology/Oncolog y Treatment, [place] [address] [place] [address] Laure, Chair 3 Hem Onc Scenery [address] [place] [address] 08/01/2024 8:00 AM EDT Laboratory Laboratory Scenery [facility] [address] [place] [address] Laure, Lab Scenery [address] [place] [address] 08/01/2024 8:30 AM EDT Office Visit Hematology/Oncolog y Scenery [facility] [address] [place], [place] [phone] Radha Torres CRNP [address] [place] [address] 08/01/2024 9:00 AM EDT Hem/Onc Treatment Hematology/Oncolog y Treatment, [place] [address] [place] [address] Laure, Chair 3 Hem Onc Scenery [address] [place], [place] [address] 08/23/2024 10:00 AM EDT Office Visit Family Practice [address] [place] [address] [address] [place] [address] Jean Claude Yao, 293 [place] [address] 09/08/2024 2:30 PM EDT Hospital Encounter ENDO OSSC, Endoscopy Room [facility] [address] [place] [phone] Irving Iyer MD [address] [place] [address] 09/08/2024 2:30 PM EDT - 09/08/2024 3:00 PM EDT Surgery ENDO OSSC, Endoscopy Room [facility] [address] [place] [phone] Irving Iyer MD [address] [place] [address] COLONOSCOPY FLEXIBLE PROXIMAL DIAGNOSTIC 03/13/2025 11:00 AM EDT [facility] [address] [place] [address] Ruma Orellana, [address] [place] [address] Scheduled Procedures Name Priority Associated Diagnoses Date/Ti me COLONOSCOPY FLEXIBLE PROXIMAL DIAGNOSTIC Recall History of colonic polyps 09/08/2024 2:30 PM EDT Health Maintenance Due Date Last Done Comments Cologuard 1997 Fecal Occult Blood Test 1997 Sigmoidoscopy 1997 Adult Wellness Visit 2018 COVID-19 Vaccine (3 - Moderna risk series) 04/19/2021 03/22/2021, 02/21/2021 Zoster Vaccines (2 of 2) 02/03/2023 12/09/2022, 1211/2011 CKD PHOS USE SMARTSET 05156 06/15/2024 06/15/2023 Colonoscopy 06/29/2024 06/29/2023, 06/16, 03/16/2023, Additional history exists Colorectal Cancer Screening 06/29/2024 Influenza Vaccine (FLU shot) (#1) 2024 08/03/2023, 08/08/2022 HbA1c 09/29/2024 03/29/2024, 1211/2022, 06/15/2023 Depression Screening 09/30/2024 09/30/2023 GFR 12/21/2024 06/20/2024, 05/17, 05/30/2024, Additional history exists Diabetic Eye Exam 01/20/2025 01/21/2024, , 05/26/2022 Diabetic Foot Exam 04/12/2025 04/12/2024, 04/12/2024 Albumin/Creatinine Ratio 05/09/2025 024, 06/15/2023, 06/03/2022 CKD HGB USE SMARTSET 79777 06/20/202506/20, 06/20/2024, 06/07/2024, Additional history exists DTaP,Tdap,and [...] this encounter Medical Devices Implanted Type Area Tuberculosis Specialist Device Identifier Shelf Expiration Date Model / Serial / Lot Sureclip 16mm 235cm - [id number] Implanted:Qty: 1 on 03/16/2023 by Irving Iyer MD at OR [facility] MICRO TECH ENDOSCOPY [id number] 05/19/2025 [id number] / / [id number] Duraclip 16mm Xlg Repostn - [id number] Implanted:Qty: 1 on 03/16/2023 by Irving Iyer MD at OR [facility] [employer]MED PHILLIP [id number] 05/18/2024 [id number] / / [id number] Duraclip 16mm Xlg Repostn - [id number] Implanted:Qty: 1 on 03/16/2023 by Irving Iyer MD at OR [facility] [employer] PH[employer]IP [id number] 05/18/2024 [id number] / / [id number] Duraclip 16mm Xlg Repostn - [id number] Implanted:Qty: 1 on 03/16/2023 by Irving Iyer MD at OR [facility] [employer] PH[employer]IP [id number] 05/18/2024 [id number] / / [id number] Duraclip 16mm Xlg Repostn - [id number] Implanted:Qty: 1 on 03/16/2023 by Irving Iyer MD at OR [facility] [employer] PH[employer]IP [id number] 05/18/2024 [id number] / / [id number] Duraclip 16mm Xlg Repostn - [id number] Implanted:Qty: 1 on 03/16/2023 by Irving Iyer MD at OR [facility] [employer] PH[employer]IP [id number] 05/18/2024 [id number] / / [id number] Duraclip 16mm Xlg Repostn - [id number] Implanted:Qty: 1 on 03/16/2023 by Irving Iyer MD at OR [facility] [employer] PH[employer]IP [id number] 05/19/2024 [id number] / / [id number] Duraclip 16mm Xlg Repostn - [id number] Implanted:Qty: 1 on 03/16/2023 by Irving Iyer MD at OR [facility] [employer] PH[employer] [id number] 05/19/2024 [id number] / / [id number] Duraclip 16mm Xlg Repostn - [id number] Implanted:Qty: 1 on 03/16/2023 by Irving Iyer MD at OR [facility] [employer] PH[employer]IP [id number] 05/19/2024 [id number] / / [id number] Duraclip 16mm Xlg Repostn - [id number] Implanted:Qty: 1 on 03/16/2023 by Irving Iyer MD at OR [facility] [employer] [id number] 05/18/2024 [id number] / / [id number] Duraclip 16mm Xlg Repostn - [id number] Implanted:Qty: 1 on 03/16/2023 by Irving Iyer MD at OR [facility] [employer] PH[employer]IP [id number] 05/18/2024 [id number] / / [id number] Duraclip 16mm Xlg Repostn - [id number] Implanted:Qty: 1 on 03/16/2023 by Irving Iyer MD at OR [facility] [employer] [id number] 05/18/2024 [id number] / / [id number] Duraclip 16mm Xlg Repostn - [id number] Implanted:Qty: 1 on 03/16/2023 by Irving Iyer MD at OR [facility] [employer] PHILLIP [id number] 05/18/2024 [id number] / / [id number] Duraclip 16mm Xlg Repostn - [id number] Implanted:Qty: 1 on 03/16/2023 by Irving Iyer MD at OR [facility] [employer] PHILLIP [id number] 05/18/2024 [id number] / / [id number] documented as of this encounter Visit Diagnoses Diagnosis Smoldering multiple myeloma (SMM)- Primary Multiple myeloma, without mention of having achieved remission History of colonic polyps Personal history of colonic polyps documented in this encounter Care Teams Medical Records Library Professor Relationship Specialty Start Date End Date Jean Claude Yao DO [address] [place] [address] PCP - General Internal Medicine 05/09/24 documented as of this encounter
--- OUTSIDE RECORDS SUMMARY | 2024-07-27 10:44 | External Medical Summary | Summary of Care ---
Author Name Unknown Organization [facility] Address [address] [place] [address] Phone [phone] Care Team Providers Care Manager Clinical Research Name Role Phone Jean Claude Yao DO Primary Care Provider [phone] Encounter Details Date Type Department Care Team (Late st Contact Info) Description 06/21/2024 Telephone Hematology/Oncology, [facility] [address] [place] [address] Abbey Aguiar MD [address] [facility] [place] [phone] Allergies No known active allergiesdocumented as of [...] Notes * Telephone Encounter - Kristin Borrero, operations consultant - 06/21/2024 9:25 AM EDT MEDICATION THERAPY MANAGEMENT LENALIDOMIDE TREATMENT STATUS NOTE Jeff Martin [id number] Patient Phone Numbers Communication: Spoke to Caller Treatment: Medication: Lenalidomide (Revlimid) 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 Aguiar Caller: Patient Incoming Request: Patient [...] continue dexamethasone while not taking lenalidomide. Per [facility] - yes, he is to continue taking dex even on his lenalidomide off days. Patient expressed understanding. Patient mentioned that last evening he was experiencing shakiness and a temp > 102 degrees. He called the [facility] number and was advised that an mechanical commissioning engineer oncologist would follow up - no one [...] follow. He expressed understanding. MEENAKSHI Londono Tech Consumer Lender Hematology Oncology Oral Chemotherapy Clinic Medication Therapy Disease Management [facility] 06/21/24,9:43 AM Time Spent on Encounter: 16 - 20 minutes Encounter Group: Hematology Encounter Interventions Item Category: Oral Chemotherapy Lenalidomide documented in this encounter Plan of Treatment Upcoming Encounters Date Type Department Care Team (Latest Contact Info) Description 06/22/2024 9:00 AM EDT Pharmacy Pharmacy Hematology Oncology [facility] [address] [place] [address] [facility], [facility] Hem/Onc [facility] [place] [address] 06/23/2024 10:00 AM EDT Hem/Onc Treatment Hematology/Oncolog y Treatment, [address], [place] [phone] Laure, Chair 1 Hem Onc [facility] 200 [facility] [place] [address] 06/27/2024 7:50 AM EDT Laboratory Laboratory [facility] Laure [place] [address] [place] [address] Laure, Lab [facility] [address] [place] [address] 06/27/2024 9:00 AM EDT Hem/Onc Treatment Hematology/Oncolog [address], [address] [address] Laure, Chair 3 Hem Onc [place] [address] [place] [address] 06/29/2024 9:00 AM EDT Office Visit Hematology/Oncolog y [facility] Laure [place] [address] [address] [place], [place] [address] Abbey Aguiar MD [address] [place] [address] 06/30/2024 9:00 AM EDT Hem/Onc Treatment Hematology/Oncolog y Treatment, [place] [address] [place] [address] Laure, Chair 6 Hem Onc [address] [place] [address] 07/04/2024 7:50 AM EDT Laboratory Laboratory Scenery Laure [place] [address] [place], [place] [address] Laure, Lab [address] [place], [place] [address] 07/04/2024 9:00 AM EDT Hem/Onc Treatment Hematology/Oncolog y Treatment, [place] [address] [facility], [place] [address] Laure, Chair 10 Hem Onc [address] [place] [address] 07/11/2024 7:50 AM EDT Laboratory Laboratory [facility] Laure [place] [address] [place] [address] Laure, Lab [address]enery [address] [place] [address] 07/11/2024 9:00 AM EDT Hem/Onc Treatment Hematology/Oncolog y Treatment, [place] [address] [place] [address] Laure, Chair 10 Hem Onc [address] [place] [address] 07/14/2024 9:00 AM EDT Hem/Onc Treatment Hematology/Oncolog y Treatment, [place] [address] [place] [address] Park, Chair 6 Hem Onc [address] [place] [address] 07/19/2024 8:30 AM EDT Laboratory Laboratory Scenery [facility] [address] [place] [address] Laure, Lab [address]en[address] [place] [address] 07/19/2024 9:30 AM EDT Hem/Onc Treatment Hematology/Oncolog y Treatment, [place] [address] [place] [address] Laure, Chair 8 Hem Onc [address] [place] [address] 07/22/2024 9:00 AM EDT Hem/Onc Treatment Hematology/Oncolog y Treatment, [place] [address] [place] [address] Laure, Chair 6 Hem Onc [address] [place] [address] 07/25/2024 8:00 AM EDT Laboratory Laboratory [facility] [address] [place] [address] Laure, Lab Scenery [address] [place] [address] 07/25/2024 9:00 AM EDT Hem/Onc Treatment Hematology/Oncolog y Treatment, [place] [address] [place] [address] Laure, Chair 3 Hem Onc [address] [place] [address] 08/01/2024 8:00 AM EDT Laboratory Laboratory Scenery [facility] [address] [place] [address] Laure, Lab Scenery [address] [place] [address] 08/01/2024 8:30 AM EDT Office Visit Hematology/Oncolog y [address] [facility] [address] [place], [place] [phone] Radha Torres CRNP [address] [place] [address] 08/01/2024 9:00 AM EDT Hem/Onc Treatment Hematology/Oncolog y Treatment, [place] [address] [place] [address] Laure, Chair 3 Hem Onc [address] [place], [place] [address] 08/23/2024 10:00 AM EDT Office Visit Family Practice [address] [place] [address] [address] [place] [address] Jean Claude Yao, 293 [place] [address] 09/08/2024 2:30 PM EDT Hospital Encounter ENDO OSSC, Endoscopy Room [facility] [address] [place] [phone] Irving Iyer MD [address] [place] [address] 09/08/2024 2:30 PM EDT - 09/08/2024 3:00 PM EDT Surgery ENDO OSSC, Endoscopy Room [facility] [address] [place] [phone] Irving Iyer MD [address] [place] [address] COLONOSCOPY FLEXIBLE PROXIMAL DIAGNOSTIC 03/13/2025 11:00 AM EDT [facility] [address] [place] [phone] Ruma Orellana, [address] [place] [address] Scheduled Procedures Name Priority Associated Diagnoses Date/Ti me COLONOSCOPY FLEXIBLE PROXIMAL DIAGNOSTIC Recall History of colonic polyps 09/08/2024 2:30 PM EDT Health Maintenance Due Date Last Done Comments Cologuard 1997 Fecal Occult Blood Test 1997 Sigmoidoscopy 1997 Adult Wellness Visit 2018 COVID-19 Vaccine (3 - Moderna risk series) 04/19/2021 03/22/2021, 02/21/2021 Zoster Vaccines (2 of 2) 02/03/2023 12/09/2022, 1211/2011 CKD PHOS USE SMARTSET 82469 06/15/2024 06/15/2023 Colonoscopy 06/29/2024 06/29/2023, 06/16, 03/16/2023, Additional history exists Colorectal Cancer Screening 06/29/2024 Influenza Vaccine (FLU shot) (#1) 2024 08/03/2023, 08/08/2022 HbA1c 09/29/2024 03/29/2024, 1211/2022, 06/15/2023 Depression Screening 09/30/2024 09/30/2023 GFR 12/21/2024 06/20/2024, 05/17, 05/30/2024, Additional history exists Diabetic Eye Exam 01/20/2025 01/21/2024, , 05/26/2022 Diabetic Foot Exam 04/12/2025 04/12/2024, 04/12/2024 Albumin/Creatinine Ratio 05/09/2025 024, 06/15/2023, 06/03/2022 CKD HGB USE SMARTSET 45518 06/20/202506/20, 06/20/2024, 06/07/2024, Additional history exists DTaP,Tdap,and [...] this encounter Medical Devices Implanted Type Area Office 365 Consultant Device Identifier Shelf Expiration Date Model / Serial / Lot Sureclip 16mm 235cm - [id number] Implanted:Qty: 1 on 03/16/2023 by Irving Iyer MD at OR [facility] MICRO TECH ENDOSCOPY [id number] 05/19/2025 [id number] / / [id number] Duraclip 16mm Xlg Repostn - [id number] Implanted:Qty: 1 on 03/16/2023 by Irving Iyer MD at OR [facility] CONMED PHILLIP [id number] 05/18/2024 [id number] / / [id number] Duraclip 16mm Xlg Repostn - [id number] Implanted:Qty: 1 on 03/16/2023 by Irving Iyer MD at OR [facility] CONMED PHILLIP [id number] 05/18/2024 [id number] / / [id number] Duraclip 16mm Xlg Repostn - [id number] Implanted:Qty: 1 on 03/16/2023 by Irving Iyer MD at OR [facility] CONMED PHILLIP [id number] 05/18/2024 [id number] / / [id number] Duraclip 16mm Xlg Repostn - [id number] Implanted:Qty: 1 on 03/16/2023 by Irving Iyer MD at OR [facility] CONMED PHILLIP [id number] 05/18/2024 [id number] / / [id number] Duraclip 16mm Xlg Repostn - [id number] Implanted:Qty: 1 on 03/16/2023 by Irving Iyer MD at OR [facility] CONMED PHILLIP [id number] 05/18/2024 [id number] / / [id number] Duraclip 16mm Xlg Repostn - [id number] Implanted:Qty: 1 on 03/16/2023 by Irving Iyer MD at OR [facility] CONMED PHILLIP [id number] 05/19/2024 [id number] / / [id number] Duraclip 16mm Xlg Repostn - [id number] Implanted:Qty: 1 on 03/16/2023 by Irving Iyer MD at OR [facility] CONMED PHILLIP [id number] 05/19/2024 [id number] / / [id number] Duraclip 16mm Xlg Repostn - [id number] Implanted:Qty: 1 on 03/16/2023 by Irving Iyer MD at OR [facility] CONMED PHILLIP [id number] 05/19/2024 [id number] / / [id number] Duraclip 16mm Xlg Repostn - [id number] Implanted:Qty: 1 on 03/16/2023 by Irving Iyer MD at OR [facility] CONMED PHILLIP [id number] 05/18/2024 [id number] / / [id number] Duraclip 16mm Xlg Repostn - [id number] Implanted:Qty: 1 on 03/16/2023 by Irving Iyer MD at OR [facility] CONMED PHILLIP [id number] 05/18/2024 [id number] / / [id number] Duraclip 16mm Xlg Repostn - [id number] Implanted:Qty: 1 on 03/16/2023 by Irving Iyer MD at OR [facility] CONMED PHILLIP [id number] 05/18/2024 [id number] / / [id number] Duraclip 16mm Xlg Repostn - [id number] Implanted:Qty: 1 on 03/16/2023 by Irving Iyer MD at OR [facility] [employer] PHILLIP [id number] 05/18/2024 [id number] / / [id number] Duraclip 16mm Xlg Repostn - [id number] Implanted:Qty: 1 on 03/16/2023 by Irving Iyer MD at OR [facility] [employer] PHILLIP [id number] 05/18/2024 [id number] / / [id number] documented as of this encounter Visit Diagnoses Diagnosis Smoldering multiple myeloma (SMM)- Primary Multiple myeloma, without mention of having achieved remission History of colonic polyps Personal history of colonic polyps documented in this encounter Care Teams Manager Clinical Research Relationship Specialty Start Date End Date Jean Claude Yao DO [address] [place] [address] PCP - General Internal Medicine 05/09/24 documented as of this encounter
--- OUTSIDE RECORDS SUMMARY | 2024-07-27 10:44 | External Medical Summary | Summary of Care ---
Author Name Unknown Organization [facility] Address [address] [place] [address] Phone [phone] Care Team Providers Care Nail Technician Name Role Phone Jean Claude Yao DO Primary Care Provider [phone] Reason for Visit * Reason Comments Chemotherapy C1/D1 - DaraVRd * Episode Based Medications (Routine) - Authorized Specialty Diagnoses / Procedures Referred By Contac t Referred To Contact Diagnoses Multiple myeloma not having achieved remission (HCC) Encounter for antineoplastic chemotherapy Procedures RI DARATUMUMAB, HYALURONIDASE RI INJECTION, BORTEZOMIB, 0.1MG Abbey Aguiar MD [address] [facility] [place] [address] Anc Hem/Onc [facility] Laure [address] [place] [phone] Referral ID Status Reason Start Date Expiration Date V isits Requested Visits Authorized [id number] Authorized 06/03/2024 06/03/[phone] Encounter Details Date Type Department Care Team (Latest Contact Info) Description 06/20/2024 9:30 AM EDT Hem/Onc Treatment Hematology/Oncolog y Treatment, [address] [place] [address] Laure, Chair 7 Hem Onc [address] [place] [address] Multiple myeloma not having achieved remission (HCC)*; Encounter for antineoplastic chemotherapy Allergies No known active allergiesdocumented as of this encounter (statuses as of 06/20/2024) Medications Medication Sig Dispensed Refills Start Date [...] 05/11/2024 Active Lenalidomide 10 MG Oral Capsule (Revlimid)Indica tions:Smoldering multiple myeloma (SMM) Take 1 Capsule by mouth in the morning. Days 1-21 every 28 days. 21 Capsule 05/27/2024 Active Acyclovir 400 MG Oral Tablet (Zovirax)Indicat ions:Smoldering multiple myeloma (SMM) Take 1 Tablet by mouth in the morning and 1 Tablet before bedtime. 60 Tablet 5 12/16/2023 Discontinue d(Refill) documented as of this encounter (statuses as of 06/20/2024) Active Problems Problem Noted Date Diagnosed Date [...] as of this encounter (statuses as of 06/20/2024) Resolved Problems Problem Noted Date Diagnosed Date Resolved Date Prediabetes 10/26/2023 12/31/2023 Overview: Per Prediabetes protocol Hypertensive kidney disease with stage 3a chronic kidney disease 07/02/2023 03/29/2024 Lesion of pancreas 12/09/2022 documented as of this encounter (statuses as of 06/20/2024) Immunizations Name Administration Dates Next Due COVID-19 [...] 9:00 AM EDT Pharmacy Pharmacy Hematology Oncology [place] [address] [place] [address] [facility] Hem/Onc [facility] [place] [address] 06/23/2024 10:00 AM EDT Hem/Onc Treatment Hematology[address] [phone] Laure, Chair 1 Hem Onc [address] [place] [address] 06/27/2024 7:50 AM EDT Laboratory Laboratory [facility] [address] [place] [address] Laure, Lab [address] [place] [address] 06/27/2024 9:00 AM EDT Hem/Onc Treatment Hematology/Oncolog [address] [phone] Laure, Chair 3 Hem Onc Scenery [address] [place] [address] 06/29/2024 9:00 AM EDT Office Visit Hematology/Oncolog y Scenery Laure [place] [address] [place], [place] [phone] Abbey Aguiar MD [address] [place] [address] 06/30/2024 9:00 AM EDT Hem/Onc Treatment Hematology/Oncolog y Treatment, [place] [address] [place] [address] Laure, Chair 6 Hem Onc Scenery [address] [place], [place] [address] 07/04/2024 7:50 AM EDT Laboratory Laboratory Kelli Kelsey [place] [address] [place], [place] [address] Laure, Lab Scenery [address] [place] [address] 07/04/2024 9:00 AM EDT Hem/Onc Treatment Hematology/Oncolog y Treatment, [place] [address] [facility], [place] [address] Laure, Chair 10 Hem Onc Scenery [address] [place] [address] 07/11/2024 7:50 AM EDT Laboratory [facility] [place] [address] [place] [address] Laure, Lab Scenery [address] [place] [address] 07/11/2024 9:00 AM EDT Hem/Onc Treatment Hematology/Oncolog y Treatment, [place] [address] [place] [address] Laure, Chair 10 Hem Onc Scenery [address] [place] [address] 07/14/2024 9:00 AM EDT Hem/Onc Treatment Hematology/Oncolog y Treatment, [place] [address] [place] [address] Park, Chair 6 Hem Onc Scenery [address] [place] [address] 07/19/2024 8:30 AM EDT Laboratory Laboratory Scenery [facility] [address] [place] [address] Laure, Lab Scenery [address] [place] [address] 07/19/2024 9:30 AM EDT Hem/Onc Treatment Hematology/Oncolog y Treatment, [place] [address] [place] [address] Laure, Chair 8 Hem Onc Scenery [address] [place] [address] 07/22/2024 9:00 AM EDT Hem/Onc Treatment Hematology/Oncolog y Treatment, [place] [address] [place] [address] Laure, Chair 6 Hem Onc Scenery [address] [place] [address] 07/25/2024 8:00 AM EDT Laboratory Laboratory Scenery Laure [place] [address] [place] [address] Laure, Lab Scenery [address] [place] [address] 07/25/2024 9:00 AM EDT Hem/Onc Treatment Hematology/Oncolog y Treatment, [place] [address] [place] [address] Laure, Chair 3 Hem Onc Scenery [address] [place] [address] 08/01/2024 8:00 AM EDT Laboratory Laboratory [facility] [place] [address] [place] [phone] Laure Lab Scenery [address] [facility] [place] [address] 08/01/2024 8:30 AM EDT Office [facility] [place] [address] [place] [phone] Radha Torres CRNP [address] [place] [address] 08/01/2024 9:00 AM EDT Hem/Onc Treatment Hematology/Oncolog y [facility], [place] [address] [place] [phone] Laure, Chair 3 Hem Onc Scenery [address] [place] [address] 08/23/2024 10:00 AM EDT Office Visit Family Practice [address] [place] [address] [address] [facility] [place] [address] Jean Claude Yao DO [address] [place] [address] 09/08/2024 2:30 PM EDT Hospital Encounter ENDO OSSC, Endoscopy Room [facility] [address] [place] [phone] Irving Iyer MD [address] [place] [address] 09/08/2024 2:30 PM EDT - 09/08/2024 3:00 PM EDT Surgery ENDO OSSC, Endoscopy Room [facility] [address] [place] [phone] Irving Iyer MD [address] [place] [address] COLONOSCOPY FLEXIBLE PROXIMAL DIAGNOSTIC 03/13/2025 11:00 AM EDT Office Visit Sleep Disorders Ctr [facility] [address] [place] [phone] Ruma Orellana, [address] [place] [address] Scheduled Procedures Name Priority Associated Diagnoses Date/Ti me COLONOSCOPY FLEXIBLE PROXIMAL DIAGNOSTIC Recall History of colonic polyps 09/08/2024 2:30 PM EDT Health Maintenance Due Date Last Done Comments Cologuard 1997 Fecal Occult Blood Test 1997 Sigmoidoscopy 1997 COVID-19 Vaccine (3 - Moderna risk series) 04/19/2021 03/22/2021, 02/21/2021 Zoster Vaccines (2 of 2) 02/03/2023 12/09/2022, 1211/2011 CKD PHOS USE SMARTSET 67085 06/15/2024 06/15/2023 Colonoscopy 06/29/2024 06/29/2023, 06/16, 03/16/2023, Additional history exists Colorectal Cancer Screening 06/29/2024 Influenza Vaccine (FLU shot) (#1) 2024 08/03/2023, 08/08/2022 HbA1c 09/29/2024 03/29/2024, 1211/2022, 06/15/2023 Depression Screening 09/30/2024 09/30/2023 GFR 12/21/2024 06/20/2024, 05/17, 05/30/2024, Additional history exists Diabetic Eye Exam 01/20/2025 01/21/2024, , 05/26/2022 Diabetic Foot Exam 04/12/2025 04/12/2024, 04/12/2024 Albumin/Creatinine Ratio 05/09/2025 024, 06/15/2023, 06/03/2022 CKD HGB USE SMARTSET 64596 06/20/202506/20, 06/20/2024, 06/07/2024, Additional history exists DTaP,Tdap,and [...] this encounter Medical Devices Implanted Type Area Shaping Machine Tender Device Identifier Shelf Expiration Date Model / Serial / Lot Sureclip 16mm 235cm - [id number] Implanted:Qty: 1 on 03/16/2023 by Irving Iyer MD at [facility] MICRO TECH ENDOSCOPY [id number] 05/19/2025 [id number] / / [id number] Duraclip 16mm Xlg Repostn - [id number] Implanted:Qty: 1 on 03/16/2023 by Irving Iyre MD at [facility] Able DeviceMED PHILLIP [id number] 05/18/2024 [id number] / / [id number] Duraclip 16mm Xlg Repostn - [id number] Implanted:Qty: 1 on 03/16/2023 by Irving Iyer MD at OR [facility] Able [employer]IP [id number] 05/18/2024 [id number] / / [id number] Duraclip 16mm Xlg Repostn - [id number] Implanted:Qty: 1 on 03/16/2023 by Irving Iyer MD at OR [facility] Able Device[employer]ILLIP [id number] 05/18/2024 [id number] / / [id number] Duraclip 16mm Xlg Repostn - [id number] Implanted:Qty: 1 on 03/16/2023 by Irving Iyer MD at OR [facility] CONMED PHILLIP [id number] 05/18/2024 [id number] / / [id number] Duraclip 16mm Xlg Repostn - [id number] Implanted:Qty: 1 on 03/16/2023 by Irving Iyer MD at OR [facility] CONMED [employer]IP [id number] 05/18/2024 [id number] / / [id number] Duraclip 16mm Xlg Repostn - [id number] Implanted:Qty: 1 on 03/16/2023 by Ivring Iyer MD at OR [facility] CON[employer]IP [id number] 05/19/2024 [id number] / / [id number] Duraclip 16mm Xlg Repostn - [id number] Implanted:Qty: 1 on 03/16/2023 by Irving Iyer MD at OR [facility] [employer] [id number] 05/19/2024 [id number] / / [id number] Duraclip 16mm Xlg Repostn - [id number] Implanted:Qty: 1 on 03/16/2023 by Irving Iyer MD at OR [facility] [employer]IP [id number] 05/19/2024 [id number] / / [id number] Duraclip 16mm Xlg Repostn - [id number] Implanted:Qty: 1 on 03/16/2023 by Irving yIer MD at OR [facility] [employer] [id number] 05/18/2024 [id number] / / [id number] Duraclip 16mm Xlg Repostn - [id number] Implanted:Qty: 1 on 03/16/2023 by Irving Iyer MD at OR [facility] [employer] [id number] 05/18/2024 [id number] / / [id number] Duraclip 16mm Xlg Repostn - [id number] Implanted:Qty: 1 on 03/16/2023 by Irving Iyer MD at OR [facility] Rezdy [id number] 05/18/2024 [id number] / / [id number] Duraclip 16mm Xlg Repostn - [id number] Implanted:Qty: 1 on 03/16/2023 by Irving Iyer MD at OR [facility] Rezdy [id number] 05/18/2024 [id number] / / [id number] Duraclip 16mm Xlg Repostn - [id number] Implanted:Qty: 1 on 03/16/2023 by Irving Iyer MD at OR [facility] Rezdy [id number] 05/18/2024 [id number] / / [id number] documented as of this encounter Visit Diagnoses [...] ONCE PRN Other, Hypersensitivity Reaction, Starting on Thu06/20/24 at 1009, Until Thu06/21/24 at 1008, For 24 hours EPINEPHrine 1 MG/ML inj 0.3 mg 0.3 mg, Intramuscular, ONCE PRN Other, Hypersensitivity Reaction or Anaphylaxis, Starting on Thu06/20/24 at 1009, Until Thu06/21/24 at 1008, For 24 hours Hydrocortisone Sod Suc (PF) (Solu-Cortef) inj 100 mg 100 mg, IV Push, ONCE PRN Other, Hypersensitivity Reaction, Starting on Thu06/20/24 at 1009, Until Thu06/21/24 at 1008, For 24 hours meperidine (Demerol) 25 MG/ML inj 25 mg 25 mg, IV Push, ONCE PRN Shivering, Starting on Thu06/20/24 at 1009, Until Discontinued NSS infusion Intravenous, at 50 mL/hr, PRN, Starting on Thu06/20/24 at 1115, Until Discontinued, Maintenance line Start Infusion 06/20/2024 10:23 AM EDT 50 mL/hr oxygen GAS Inhalation, OXYGEN, First dose on Thu06/20/24 at 1045, Until Discontinued, Device/Managed by: Low Flow Device, [...] EDT 2.75 mg Abdomen Left Lower Daratumumab-hyaluronida se-fij (Darzalex Faspro) 1800 mg-25204 units/ 15 ml subcut inj 15 mL, [...] Given 06/20/2024 10:23 AM EDT 20 mg documented in this encounter Care Teams Nail Technician Relationship Specialty Start Date End Date Jean Claude Yao DO [address] [place] [address] PCP - General Internal Medicine 05/09/24 documented as of this encounter
--- OUTSIDE RECORDS SUMMARY | 2024-07-27 10:44 | External Medical Summary | Summary of Care ---
Author Name Unknown Organization [facility] Address [address] [place] [address] Phone [phone] Care Team Providers Care Forestry Crew Chief Name Role Phone Jean Claude Yao DO Primary Care Provider [phone] Reason for Visit * Reason Onset Date Comments Medication Refill 06/24/2024 Encounter Details Date Type Department Care Team (Late st Contact Info) Description 06/24/2024 Refill Hematology/Oncology [facility] [place] [address] [facility] [place] [phone] Abbey Concepcion MD [address] [facility] [place] [address] Smoldering multiple myeloma (SMM)* Allergies No known active allergiesdocumented as of this encounter (statuses as of 06/24/2024) Medications Medication Sig Dispensed Refills Start Date [...] 06/20/2024 Active Lenalidomide 10 MG Oral Capsule (Revlimid)Indica tions:Smoldering multiple myeloma (SMM) TAKE 1 CAPSULE BY MOUTH 1 TIME A DAY IN THE MORNING FOR 14 DAYS ON THEN 7 DAYS OFF 14 Capsule 06/24/2024 Active Lenalidomide 10 MG Oral Capsule (Revlimid)Indica tions:Smoldering multiple myeloma (SMM) Take 1 Capsule by mouth in the morning. Days 1-21 every 28 days. 21 Capsule 05/27/2024 Discontinue d(Medicatio n/Dose Changed) documented as of this encounter (statuses as of 06/24/2024) Active Problems Problem Noted Date Diagnosed Date [...] as of this encounter (statuses as of 06/24/2024) Resolved Problems Problem Noted Date Diagnosed Date Resolved Date Prediabetes 10/26/2023 12/31/2023 Overview: Per Prediabetes protocol Hypertensive kidney disease with stage 3a chronic kidney disease 07/02/2023 03/29/2024 Lesion of pancreas 12/09/2022 documented as of this encounter (statuses as of 06/24/2024) Immunizations Name Administration Dates Next Due COVID-19 [...] encounter Miscellaneous Notes * Telephone Encounter - Shelby Steele RPh - 06/24/2024 8:28 AM EDT Signed Prescriptions: Disp Refills Lenalidomide 10 MG Oral Capsule (Revlimid) 14 Cap*0 Sig: TAKE 1 CAPSULE BY MOUTH 1 TIME A DAY IN THE MORNING FOR 14 DAYS ON THEN 7 DAYS OFFAuthorizing Provider: ABBEY CONCEPCION ALTAFHemanth User: SHELBY STEELE * Telephone Encounter - Shelby Steele RP - 06/24/2024 8:27 AM EDT Refill Request EPIC Note Clinical Pharmacy Service (Hematology/Oncology): Refill Request(s) PHYSICIAN ACTION: No Assessment & Plan After reviewing the parameters in order to refill the patient's medication(s), the following was determined: The medication(s), lenalidomide, was refilled and no parameters need to be addressed No communication to requesting entity necessary Refill Parameters The following parameters were assessed in order to decide whether or not this refill was appropriate: Refill Parameter Comments If the patient was seen in the last 6 months (12 months for MPN patients) Yes - 06/01/24 If the labs were completed per prescribing information recommendations or provider recommendations Yes - 06/20/24 If the labs were within normal limits or stable at baseline yes If the dose was correct and/or if the prescription sig reflects the current prescribed dose yes If there were any new drug interactions with the patient's oral chemotherapy no If there were any care gaps/baseline labs that need to be addressed no Shelby Steele [facility] Clinical Pharmacist | Oral Chemotherapy Clinic [facility] 06/24/2024, 8:27 AM * Telephone Encounter - Smita Harris CPhT - 06/24/2024 8:16 AM EDT PHARMACY [facility] MEDICATION AUTHORIZATION Jeff Martin [phone] Patient Phone Numbers Communication: Chart review Treatment: Medication: Lenalidomide (Revlimid) 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 Concepcion Cycle Dates C1 06/07 - 06/27 C2 ( 15mg; Delayed) 07/12 - 08/01 C3 Delayed; DR 10mg 08/23 - 09/12 C4 09/22 - 10/12 C5 delayed 11/03 - 11/23 C11 05/08 - 05/28 C12 Frequency change to 06/05 - 06/18 C13 06/26 - 07/09 C14 07/17 - 07/30 (anticipated) Patient managed by Hem/Onc MTDM - Yes Patient is due for/had labs on 06/20 Prescriber survey complete; [employer] auth number [id number]. Upon new prescription being sent to [facility] specialty pharmacy, will follow up on [employer] website within 1-2 business days to confirm medication dispensed Smita Harris Direct Support Professional Home Health III Hematology Oncology Oral Chemotherapy Clinic Medication Therapy Disease Management [facility] 06/24/2024 8:18 AM Time Spent on Encounter: < 5 minutes documented in this encounter Plan of Treatment Upcoming Encounters Date Type Department Care Team (Latest Contact Info) Description 06/27/2024 7:50 AM EDT Laboratory Laboratory Kelli Kelsey [place] [address] [place] [phone] Pratima Kelsey [address] [place] [address] 06/27/2024 9:00 AM EDT Hem/Onc Treatment Hematology/Oncolog y Treatment, [place] [address] [facility] [place] [phone] Laure, Chair 3 Hem Onc Scenery [address] [place] [address] [address] 06/29/2024 9:00 AM EDT Office Visit Hematology/Oncolog y State Seth Bhardwaj [address] [place] [phone] Abbey Concepcion MD [address] [place] [address] 06/30/2024 9:00 AM EDT Hem/Onc Treatment Hematology/Oncolog y Treatment, [place] [address] [facility] [place] [phone] Laure, Chair 6 Hem Onc Scenery [address] [place] [address] [address] [address] 07/04/2024 7:50 AM EDT Laboratory Laboratory State Seth Bhardwaj [address] [place] [address] [phone] Park, Lab Scenery [address] [place], [place] [address] 07/04/2024 9:00 AM EDT Hem/Onc Treatment Hematology/Oncolog y Treatment, [place] [address] [facility] [place], [place] [phone] Laure, Chair 10 Hem Onc Scenery [address] [place], [place] [address] 07/11/2024 7:50 AM EDT Laboratory Laboratory Scenery [place] [address] [place], [place] [phone] [place], Lab Scenery [address] [place], [place] [address] 07/11/2024 9:00 AM EDT Hem/Onc Treatment Hematology/Oncolog y Treatment, [place] [address] [facility] [place], [place] [phone] Laure, Chair 10 Hem Onc Scenery [address] [place], [place] [address] 07/11/2024 9:00 AM EDT Pharmacy Pharmacy Hematology Oncology [place] [address] [place] [address] [facility] Hem/Onc [address] [place] [address] 07/14/2024 9:00 AM EDT Hem/Onc Treatment Hematology/Oncolog y Treatment, [place] [address] [facility] [place] [phone] Laure, Chair 6 Hem Onc Scenery [address] [place] [address] 07/19/2024 8:30 AM EDT Laboratory Laboratory Scenery Laure [place] [address] [place], [place] [phone] Laure, Lab Scenery [address] [place] [address] 07/19/2024 9:30 AM EDT Hem/Onc Treatment Hematology/Oncolog y Treatment, [place] [address] [facility] [place] [phone] Laure, Chair 8 Hem Onc Scenery [address] [place], [place] [address] 07/22/2024 9:00 AM EDT Hem/Onc Treatment Hematology/Oncolog y Treatment, [place] [address] [facility] [place] [address] Laure, Chair 6 Hem Onc Scenery [address] [place], [place] [address] 07/25/2024 8:00 AM EDT Laboratory Laboratory [facility] [address] [place], [place] [phone] Laure, Lab Scenery [address] [place], [place] [address] 07/25/2024 9:00 AM EDT Hem/Onc Treatment Hematology/Oncolog y Treatment, [place] [address] [facility] [place], [place] [phone] Laure, Chair 3 Hem Onc Scenery [address] [place], [place] [address] 08/01/2024 8:00 AM EDT Laboratory Laboratory [facility] [place] [address] [place], [place] [phone] Laure, Lab Scenery [address] [place] [address] 08/01/2024 8:30 AM EDT Office Visit Hematology/Oncolog y Scenery [place] [address] [place], [place] [phone] Radha Torres CRNP [address] [facility] [place] [address] 08/01/2024 9:00 AM EDT Hem/Onc Treatment Hematology/Oncolog y Treatment, [place] [address] [place] [phone] Laure, Chair 3 Hem Onc Scenery [address] [place], [place] [address] 08/23/2024 10:00 AM EDT Office Visit Family Practice [address], [place] [address] [facility], [place] [phone] Jean Claude Yao, DO [address] [facility], [place] [address] 09/08/2024 2:30 PM EDT Hospital Encounter ENDO OSS, Endoscopy Room [facility] [address] [place] [phone] Irving Iyer MD [address] [place] [address] 09/08/2024 2:30 PM EDT - 09/08/2024 3:00 PM EDT Surgery ENDO OSS, Endoscopy Room [facility] [address] [place] [phone] Irving Iyer MD [address] [place] [address] COLONOSCOPY FLEXIBLE PROXIMAL DIAGNOSTIC 03/13/2025 11:00 AM EDT Office Visit Sleep Disorders Ctr Ruel Watts [place] [address] [place] [phone] Ruma Orellana DO [address] [place] [address] Scheduled Procedures Name Priority Associated Diagnoses Date/Ti me COLONOSCOPY FLEXIBLE PROXIMAL DIAGNOSTIC Recall History of colonic polyps 09/08/2024 2:30 PM EDT Health Maintenance Due Date Last Done Comments Cologuard 1997 Fecal Occult Blood Test 1997 Sigmoidoscopy 1997 Adult Wellness Visit 2018 COVID-19 Vaccine (3 - Moderna risk series) 04/19/2021 03/22/2021, 02/21/2021 Zoster Vaccines (2 of 2) 02/03/2023 12/09/2022, 11/2011 CKD PHOS USE SMARTSET 18978 06/15/2024 06/15/2023 Colonoscopy 06/29/2024 06/29/2023, 06/16, 03/16/2023, Additional history exists Colorectal Cancer Screening 06/29/2024 Influenza Vaccine (FLU shot) (#1) 2024 08/03/2023, 08/08/2022 HbA1c 09/29/2024 03/29/2024, 11/2022, 06/15/2023 Depression Screening 09/30/2024 09/30/2023 GFR 12/21/2024 06/20/2024, 05/17, 05/30/2024, Additional history exists Diabetic Eye Exam 01/20/2025 01/21/2024, , 05/26/2022 Diabetic Foot Exam 04/12/2025 04/12/2024, 04/12/2024 Albumin/Creatinine Ratio 05/09/2025 024, 06/15/2023, 06/03/2022 CKD HGB USE SMARTSET 06191 06/20/202506/20, 06/20/2024, 06/07/2024, Additional history exists DTaP,Tdap,and [...] this encounter Medical Devices Implanted Type Area Night Nurse Device Identifier Shelf Expiration Date Model / Serial / Lot Sureclip 16mm 235cm - [id number] Implanted:Qty: 1 on 03/16/2023 by Irving Iyer MD at OR [facility] MICRO [employer]CH ENDOSCOPY [id number] 05/19/2025 [id number] / / [id number] Duraclip 16mm Xlg Repostn - [id number] Implanted:Qty: 1 on 03/16/2023 by Irving Iyer MD at OR [facility] [place] [id number] 05/18/2024 [id number] / / [id number] Duraclip 16mm Xlg Repostn - [id number] Implanted:Qty: 1 on 03/16/2023 by Irving Iyer MD at OR [facility] [place] [id number] 05/18/2024 [id number] / / [id number] Duraclip 16mm Xlg Repostn - [id number] Implanted:Qty: 1 on 03/16/2023 by Irving Iyer MD at OR [facility] [place] [id number] 05/18/2024 [id number] / / [id number] Duraclip 16mm Xlg Repostn - [id number] Implanted:Qty: 1 on 03/16/2023 by Irving Iyer MD at OR [facility] [employer] [id number] 05/18/2024 [id number] / / [id number] Duraclip 16mm Xlg Repostn - [id number] Implanted:Qty: 1 on 03/16/2023 by Irving Iyer MD at OR [facility] [employer] [id number] 05/18/2024 [id number] / / [id number] Duraclip 16mm Xlg Repostn - [id number] Implanted:Qty: 1 on 03/16/2023 by Irving Iyer MD at OR [facility] [employer] [id number] 05/19/2024 [id number] / / [id number] Duraclip 16mm Xlg Repostn - [id number] Implanted:Qty: 1 on 03/16/2023 by Irving Iyer MD at OR [facility] [employer] [id number] 05/19/2024 [id number] / / [id number] Duraclip 16mm Xlg Repostn - [id number] Implanted:Qty: 1 on 03/16/2023 by Irving Iyer MD at OR [facility] [employer] [id number] 05/19/2024 [id number] / / [id number] Duraclip 16mm Xlg Repostn - [id number] Implanted:Qty: 1 on 03/16/2023 by Irving Iyer MD at OR [facility] [employer] [id number] 05/18/2024 [id number] / / [id number] Duraclip 16mm Xlg Repostn - [id number] Implanted:Qty: 1 on 03/16/2023 by Irving Iyer MD at OR [facility] [employer] [id number] 05/18/2024 [id number] / / [id number] Duraclip 16mm Xlg Repostn - [id number] Implanted:Qty: 1 on 03/16/2023 by Irving Iyer MD at OR [facility] [employer] [id number] 05/18/2024 [id number] / / [id number] Duraclip 16mm Xlg Repostn - [id number] Implanted:Qty: 1 on 03/16/2023 by Irving Iyer MD at OR [facility] [employer] [id number] 05/18/2024 [id number] / / [id number] Duraclip 16mm Xlg Repostn - [id number] Implanted:Qty: 1 on 03/16/2023 by Irving Iyer MD at OR [facility] [employer] [id number] 05/18/2024 [id number] / / [id number] documented as of this encounter Visit Diagnoses Diagnosis Smoldering multiple myeloma (SMM)- Primary Multiple myeloma, without mention of having achieved remission History of colonic polyps Personal history of colonic polyps documented in this encounter Care Teams Forestry Crew Chief Relationship Specialty Start Date End Date Jean Claude Yao DO [address] [place] [address] PCP - General Internal Medicine 05/09/24 documented as of this encounter"
--- OUTSIDE RECORDS SUMMARY | 2024-07-27 10:44 | External Medical Summary | Summary of Care ---
Author Name Unknown Organization [facility] Address [address] [place] [address] Phone [phone] Care Team Providers Care Funeral Director/Embalmer Name Role Phone Jean Claude Yao DO Primary Care Provider [phone] Reason for Visit * Reason Comments Chemotherapy Velcade. * Episode Based Medications (Routine) - Authorized Specialty Diagnoses / Procedures Referred By Contac t Referred To Contact Diagnoses Multiple myeloma not having achieved remission (HCC) Encounter for antineoplastic chemotherapy Procedures DE DARATUMUMAB, HYALURONIDASE DE INJECTION, BORTEZOMIB, 0.1MG Abbey Aguiar MD [address] [place] [address] Anc Hem/Onc [facility] Laure [address] [place] [phone] Referral ID Status Reason Start Date Expiration Date V isits Requested Visits Authorized [id number] Authorized 06/03/2024 06/03/[phone] Encounter Details Date Type Department Care Team (Latest Contact Info) Description 06/23/2024 10:00 AM EDT Hem/Onc Treatment Hematology/Oncolog y Treatment, [address] [address] Laure, Chair 1 Hem Onc [address] [place] [address] Multiple myeloma not having achieved remission [...] No 09/30/2023 Does the household have a [facility] source of income? (Household - for ages [...] Description 06/27/2024 7:50 AM EDT Laboratory Laboratory State Seth Bhardwaj [address] [place] [address] Park, Lab Scenery [address] [place] [address] 06/27/2024 9:00 AM EDT Hem/Onc Treatment Hematology/Oncolog y Treatment, [place] 200 [place] [place] [address] Park, Chair 3 Hem Onc Scenery [address] [place] [address] 06/29/2024 9:00 AM EDT Office Visit Hematology/Oncolog y Scenery Laure [place] [address] [place] [address] Abbey Aguiar MD [address] [place] [address] 06/30/2024 9:00 AM EDT Hem/Onc Treatment Hematology/Oncolog y Treatment, [place] 200 [facility] [place] [address] Laure, Chair 6 Hem Onc Scenery [address] [place] [address] 07/04/2024 7:50 AM EDT Laboratory Laboratory [facility] Laure [place] [address] [place], [place] [address] Laure, Lab Scenery [address] [place] [address] 07/04/2024 9:00 AM EDT Hem/Onc Treatment Hematology/Oncolog y Treatment, [place] 200 [facility] [place] [address] Park, Chair 10 Hem Onc Scenery [address] [place] [address] 07/11/2024 7:50 AM EDT Laboratory Laboratory Scenery Laure [place] [address] [place] [address] Laure, Lab Scenery [address] [place] [address] 07/11/2024 9:00 AM EDT Hem/Onc Treatment Hematology/Oncolog y Treatment, [place] 200 [facility], [place] [address] Laure, Chair 10 Hem Onc Scenery [address] [place], [place] [address] 07/11/2024 9:00 AM EDT Pharmacy Pharmacy Hematology Oncology [facility] [address] [place] [address] [facility] Hem/Onc [address] [place] [address] 07/14/2024 9:00 AM EDT Hem/Onc Treatment Hematology/Oncolog y Treatment, [place] 200 [facility], [place] [phone] Laure, Chair 6 Hem Onc Scenery 200 [facility] [place], [place] [address] 07/19/2024 8:30 AM EDT Laboratory Laboratory [facility] Laure [place] [address] [place], [place] [address] Laure, Lab Scenery [address] [place], [place] [address] 07/19/2024 9:30 AM EDT Hem/Onc Treatment Hematology/Oncolog y Treatment, [place] 200 [facility] [place] [address] Laure, Chair 8 Hem Onc Scenery [address] [place] [address] 07/22/2024 9:00 AM EDT Hem/Onc Treatment Hematology/Oncolog y Treatment, [place] [address] [facility] [place] [address] Laure, Chair 6 Hem Onc Scenery [address] [place] [address] 07/25/2024 8:00 AM EDT Laboratory Laboratory [facility] [place] [address] [place], [place] [phone] Laure, Lab Scenery [address] [place], [place] [address] 07/25/2024 9:00 AM EDT Hem/Onc Treatment Hematology/Oncolog y Treatment, [place] [address] [place], [place] [phone] Laure, Chair 3 Hem Onc Scenery [address] [place], [place] [address] 08/01/2024 8:00 AM EDT Laboratory Laboratory [facility] [place] [address] [place], [place] [phone] Laure, Lab Scenery [address] [place], [place] [address] 08/01/2024 8:30 AM EDT Office Visit [facility]ematology[facility]olog [facility] [place] [address] [place], [place] [phone] Radha Torres [facility] [address] [facility] [address] 08/01/2024 9:00 AM EDT Hem/Onc Treatment Hematology/Oncolog y [facility], [place] 200 [facility], [place] [phone] Laure, Chair 3 Hem Onc Scenery [address] [place] [address] 08/23/2024 10:00 AM EDT Office Visit Family Practice [address], [place] 293 [place] [phone] Jean Claude Yao DO [address] [place] [address] 09/08/2024 2:30 PM EDT Hospital Encounter ENDO [facility], Endoscopy Room [facility] [address] [place] [address] Irving Iyer MD [address] [place] [address] 09/08/2024 2:30 PM EDT - 09/08/2024 3:00 PM EDT Surgery ENDO [facility], Endoscopy Room [facility] [address] [place] [phone] Irving Iyer MD [address] [place] [address] COLONOSCOPY FLEXIBLE PROXIMAL DIAGNOSTIC 03/13/2025 11:00 AM EDT Office Visit Sleep Disorders Ctr [facility] [address] [place] [phone] Ruma Orellana DO [address] [place] [address] Scheduled Procedures Name Priority Associated Diagnoses Date/Ti me COLONOSCOPY FLEXIBLE PROXIMAL DIAGNOSTIC Recall History of colonic polyps 09/08/2024 2:30 PM EDT Health Maintenance Due Date Last Done Comments Cologuard 1997 Fecal Occult Blood Test 1997 Sigmoidoscopy 1997 Adult Wellness Visit 2018 COVID-19 Vaccine (3 - Moderna risk series) 04/19/2021 03/22/2021, 02/21/2021 Zoster Vaccines (2 of 2) 02/03/2023 12/09/2022, 11/2011 CKD PHOS USE SMARTSET 08291 06/15/2024 06/15/2023 Colonoscopy 06/29/2024 06/29/2023, 06/16, 03/16/2023, Additional history exists Colorectal Cancer Screening 06/29/2024 Influenza Vaccine (FLU shot) (#1) 2024 08/03/2023, 08/08/2022 HbA1c 09/29/2024 03/29/2024, 1211/2022, 06/15/2023 Depression Screening 09/30/2024 09/30/2023 GFR 12/21/2024 06/20/2024, 05/17, 05/30/2024, Additional history exists Diabetic Eye Exam 01/20/2025 01/21/2024, , 05/26/2022 Diabetic Foot Exam 04/12/2025 04/12/2024, 04/12/2024 Albumin/Creatinine Ratio 05/09/2025 024, 06/15/2023, 06/03/2022 CKD HGB USE SMARTSET 00358 06/20/202506/20, 06/20/2024, 06/07/2024, Additional history exists DTaP,Tdap,and [...] this encounter Medical Devices Implanted Type Area Inspector Machined Parts Device Identifier Shelf Expiration Date Model / Serial / Lot Sureclip 16mm 235cm - [id number] Implanted:Qty: 1 on 03/16/2023 by Irving Iyer MD at OR [facility] MICRO TECH ENDOSCOPY [id number] 05/19/2025 [id number] / / [id number] Duraclip 16mm Xlg Repostn - [id number] Implanted:Qty: 1 on 03/16/2023 by Irving Iyer MD at OR [facility] [employer] [id number] 05/18/2024 [id number] / / [id number] Duraclip 16mm Xlg Repostn - [id number] Implanted:Qty: 1 on 03/16/2023 by Irving Iyer MD at OR [facility] [employer] [id number] 05/18/2024 [id number] / / [id number] Duraclip 16mm Xlg Repostn - [id number] Implanted:Qty: 1 on 03/16/2023 by Irving Iyer MD at OR [facility] [employer] [id number] 05/18/2024 [id number] / / [id number] Duraclip 16mm Xlg Repostn - [id number] Implanted:Qty: 1 on 03/16/2023 by Irving Iyer MD at OR [facility] [employer] [id number] 05/18/2024 [id number] / / [id number] Duraclip 16mm Xlg Repostn - [id number] Implanted:Qty: 1 on 03/16/2023 by Irving Iyer MD at OR [facility] [employer] [id number] 05/18/2024 [id number] / / [id number] Duraclip 16mm Xlg Repostn - [id number] Implanted:Qty: 1 on 03/16/2023 by Irving Iyer MD at OR [facility] [employer] [id number] 05/19/2024 [id number] / / [id number] Duraclip 16mm Xlg Repostn - [id number] Implanted:Qty: 1 on 03/16/2023 by Irving Iyer MD at OR [facility] [employer] [id number] 05/19/2024 [id number] / / [id number] Duraclip 16mm Xlg Repostn - [id number] Implanted:Qty: 1 on 03/16/2023 by Irving Iyer MD at OR [facility] [employer] [id number] 05/19/2024 [id number] / / [id number] Duraclip 16mm Xlg Repostn - [id number] Implanted:Qty: 1 on 03/16/2023 by Irving Iyer MD at OR [facility] [employer] [id number] 05/18/2024 [id number] / / [id number] Duraclip 16mm Xlg Repostn - [id number] Implanted:Qty: 1 on 03/16/2023 by Irving Iyer MD at OR [facility] [employer] [id number] 05/18/2024 [id number] / / [id number] Duraclip 16mm Xlg Repostn - [id number] Implanted:Qty: 1 on 03/16/2023 by Irving Iyer MD at OR [facility] [employer] [id number] 05/18/2024 [id number] / / [id number] Duraclip 16mm Xlg Repostn - [id number] Implanted:Qty: 1 on 03/16/2023 by Irving Iyer MD at OR [facility] [employer] [id number] 05/18/2024 [id number] / / [id number] Duraclip 16mm Xlg Repostn - [id number] Implanted:Qty: 1 on 03/16/2023 by Irving Iyer MD at OR [facility] [employer] [id number] 05/18/2024 [id number] / / [id number] documented as of this encounter Visit Diagnoses [...] ONCE PRN Other, Hypersensitivity Reaction, Starting on Thu06/23/24 at 1003, Until Thu06/24/24 at 1002, For 24 hours EPINEPHrine 1 MG/ML inj 0.3 mg 0.3 mg, Intramuscular, ONCE PRN Other, Hypersensitivity Reaction or Anaphylaxis, Starting on Thu06/23/24 at 1003, Until Thu06/24/24 at 1002, For 24 hours Hydrocortisone Sod Suc (PF) (Solu-Cortef) inj 100 mg 100 mg, IV Push, ONCE PRN Other, Hypersensitivity Reaction, Starting on Thu06/23/24 at 1003, Until Thu06/24/24 at 1002, For 24 hours oxygen GAS Inhalation, OXYGEN, First dose on Thu06/23/24 at 1045, Until Discontinued, Device/Managed by: Low [...] BSA from Recorded weight), Subcutaneous, ONCE, On Thu06/23/24 at 1145, For 1 dose, Administer subcutaneously in thigh or abdomen-rotate site Given 06/23/2024 10:05 AM EDT 2.75 mg Abdomen Right Lower documented in this encounter Care Teams Funeral Director/Embalmer Relationship Specialty Start Date End Date Jean Claude Yao DO [address] [place] [address] PCP - General Internal Medicine 05/09/24 documented as of this encounter
--- OUTSIDE RECORDS SUMMARY | 2024-07-27 10:45 | External Medical Summary | Summary of Care ---
Author Name Unknown Organization [facility] Address [address] [place] [address] Phone [phone] Care Team Providers Care Auto Parts Clerk Name Role Phone Jean Claude Yao DO Primary Care Provider [phone] Reason for Visit * Reason Onset Date Comments Medication Refill 06/20/2024 Encounter Details Date Type Department Care Team (Late st Contact Info) Description 06/20/2024 Refill Hematology/Oncology [facility] [place] 200 [facility] [place] [address] Abbey Aguiar MD 200 [facility] [place] [address] Smoldering multiple myeloma (SMM) Allergies No known active allergiesdocumented as of [...] before bedtime. 60 Tablet 3 06/20/2024 Active Acyclovir 400 MG Oral Tablet (Zovirax)Indicat [...] Telephone Encounter - Kiran Live RN - 06/20/2024 12:44 PM EDT Pt requesting refill of Acyclovir. Currently on [facility]. documented in this encounter Plan of Treatment Upcoming Encounters Date Type Department Care Team (Latest Contact Info) Description 06/22/2024 9:00 AM EDT Pharmacy Pharmacy Hematology Oncology [facility] [address] [place] [address] [facility], [facility] Hem/Onc [address] [place] [address] 06/23/2024 1:45 PM EDT Immunization/Injec tion Hematology/Oncology Treatment, [place] [address] [place] [address] Laure, Chair 1 Hem [facility]c [facility] [id number] 06/29/2024 9:00 AM EDT Office Visit Hematology/Oncology Kelli Kelsey [place] 200 [facility] [place] [phone] Abbey Aguiar MD 200 [facility] [place] [address] 08/23/2024 10:00 AM EDT Office Visit Family Practice [address] [place] [address] 293 [facility], [place] [address] Jean Claude Yao DO [address] [facility], [place] [address] 09/08/2024 2:30 PM EDT Hospital Encounter ENDO [facility], Endoscopy Room [facility] [address] [place] [phone] Irving Iyer MD [address] [place] [address] 09/08/2024 2:30 PM EDT - 09/08/2024 3:00 PM EDT Surgery ENDO [facility], Endoscopy Room [facility] [address] [place] [phone] Irving Iyer MD [address] [place] [address] COLONOSCOPY FLEXIBLE PROXIMAL DIAGNOSTIC 03/13/2025 11:00 AM EDT Office Visit Sleep Disorders Ctr [facility] [address] [place] [phone] Ruma Orellana DO [address] [place] [address] Scheduled Procedures Name Priority Associated Diagnoses Date/Ti me COLONOSCOPY FLEXIBLE PROXIMAL DIAGNOSTIC Recall History of colonic polyps 09/08/2024 2:30 PM EDT Health Maintenance Due Date Last Done Comments Cologuard 1997 Fecal Occult Blood Test 1997 Sigmoidoscopy 1997 COVID-19 Vaccine (3 - Moderna risk series) 04/19/2021 03/22/2021, 02/21/2021 Zoster Vaccines (2 of 2) 02/03/2023 12/09/2022, 12/11/2011 CKD PHOS USE SMARTSET 77085 06/15/2024 06/15/2023 Colonoscopy 06/29/2024 06/29/2023, 06/16, 03/16/2023, Additional history exists Colorectal Cancer Screening 06/29/2024 Influenza Vaccine (FLU shot) (#1) 2024 08/03/2023, 08/08/2022 HbA1c 09/29/2024 03/29/2024, 1211/2022, 06/15/2023 Depression Screening 09/30/2024 09/30/2023 GFR 12/21/2024 06/20/2024, 05/17, 05/30/2024, Additional history exists Diabetic Eye Exam 01/20/2025 01/21/2024, , 05/26/2022 Diabetic Foot Exam 04/12/2025 04/12/2024, 04/12/2024 Albumin/Creatinine Ratio 05/09/2025 024, 06/15/2023, 06/03/2022 CKD HGB USE SMARTSET 67464 06/20/202506/20, 06/20/2024, 06/07/2024, Additional history exists DTaP,Tdap,and [...] this encounter Medical Devices Implanted Type Area Safety Instructor Device Identifier Shelf Expiration Date Model / Serial / Lot Sureclip 16mm 235cm - [id number] Implanted:Qty: 1 on 03/16/2023 by Irving Iyer MD at OR [facility] MICRO TECH ENDOSCOPY [id number] 05/19/2025 [id number] / / [id number] Duraclip 16mm Xlg Repostn - [id number] Implanted:Qty: 1 on 03/16/2023 by Irving Iyer MD at OR [facility] [employer] [id number] 05/18/2024 [id number] / / [id number] Duraclip 16mm Xlg Repostn - [id number] Implanted:Qty: 1 on 03/16/2023 by Irving Iyer MD at OR [facility] [employer] [id number] 05/18/2024 [id number] / / [id number] Duraclip 16mm Xlg Repostn - [id number] Implanted:Qty: 1 on 03/16/2023 by Irving Iyer MD at OR [facility] [employer] [id number] 05/18/2024 [id number] / / [id number] Duraclip 16mm Xlg Repostn - [id number] Implanted:Qty: 1 on 03/16/2023 by Irving Iyer MD at OR [facility] [employer] [id number] 05/18/2024 [id number] / / [id number] Duraclip 16mm Xlg Repostn - [id number] Implanted:Qty: 1 on 03/16/2023 by Irving Iyer MD at OR [facility] [employer] [id number] 05/18/2024 [id number] / / [id number] Duraclip 16mm Xlg Repostn - [id number] Implanted:Qty: 1 on 03/16/2023 by Irving Iyer MD at OR [facility] [employer] [id number] 05/19/2024 [id number] / / [id number] Duraclip 16mm Xlg Repostn - [id number] Implanted:Qty: 1 on 03/16/2023 by Irving Iyer MD at OR [facility] [employer] [id number] 05/19/2024 [id number] / / [id number] Duraclip 16mm Xlg Repostn - [id number] Implanted:Qty: 1 on 03/16/2023 by Irving Iyer MD at OR [facility] [employer] [id number] 05/19/2024 [id number] / / [id number] Duraclip 16mm Xlg Repostn - [id number] Implanted:Qty: 1 on 03/16/2023 by Irving Iyer MD at OR [facility] [employer] [id number] 05/18/2024 [id number] / / [id number] Duraclip 16mm Xlg Repostn - [id number] Implanted:Qty: 1 on 03/16/2023 by Irving Iyer MD at OR [facility] [employer] [id number] 05/18/2024 [id number] / / [id number] Duraclip 16mm Xlg Repostn - [id number] Implanted:Qty: 1 on 03/16/2023 by Irving Iyer MD at OR [facility] [employer] [id number] 05/18/2024 [id number] / / [id number] Duraclip 16mm Xlg Repostn - [id number] Implanted:Qty: 1 on 03/16/2023 by Irving Iyer MD at OR [facility] [employer] [id number] 05/18/2024 [id number] / / [id number] Duraclip 16mm Xlg Repostn - [id number] Implanted:Qty: 1 on 03/16/2023 by Irving Iyer MD at OR [facility] [employer] [id number] 05/18/2024 [id number] / / [id number] documented as of this encounter Visit Diagnoses Diagnosis Smoldering multiple myeloma (SMM) Multiple myeloma, without mention of having achieved remission History of colonic polyps Personal history of colonic polyps documented in this encounter Care Teams Auto Parts Clerk Relationship Specialty Start Date End Date Jean Claude Yao DO [address] [place] [address] PCP - General Internal Medicine 05/09/24 documented as of this encounter
--- OUTSIDE RECORDS SUMMARY | 2024-07-27 10:45 | External Medical Summary ---
Author Name Unknown Address Unknown Organization [facility] [place] [address] Laboratory Report Ordering Provider Test Date Status CARLENE PEREZ 06/20/2024 08:38:22 Final Observation Date Value Abnormality Reference (Units ) Status SYNC LEUKOCYTES IN BLOOD BY AUTOMATED COUNT 06/20/2024 08:38:22 2.26 Below low normal 4.00-10.80 (K/uL) Final Segs 06/20/2024 08:38:22 47.8 40.0-75.0 (%) Final Lymphs % 06/20/2024 08:38:22 32.3 18.0-42.0 (%) Final Monos 06/20/2024 08:38:22 16.4 Above high normal 1.0-11.0 (%) Final Eosinophils 06/20/2024 08:38:22 3.1 0.0-6.0 (%) Final Basos 06/20/2024 08:38:22 0.4 0.0-2.0 (%) Final Absolute Segs 06/20/2024 08:38:22 1.08 Below low normal 1.80-7.70 (K/uL) Final Lymphs, absolute 06/20/2024 08:38:22 0.73 Below low normal 1.00-4.80 (K/ul) Final Monos, Abs 06/20/2024 08:38:22 0.37 0.00-1.10 (K/uL) Final Eos, Abs 06/20/2024 08:38:22 0.07 0.00-0.70 (K/uL) Final Basos, Abs 06/20/2024 08:38:22 0.01 0.00-0.20 (K/uL) Final Performing Location [facility] [place] [address]
--- OUTSIDE RECORDS SUMMARY | 2024-07-27 10:45 | External Medical Summary ---
Author Name Unknown Address Unknown Organization [facility] [place] [address] Laboratory Report Ordering Provider Test Date Status CARLENE PEREZ 06/20/2024 08:38:22 Final Observation Date Value Abnormality Reference (Units ) Status Nucleated erythrocytes/100 leukocytes [Ratio] in Blood by Automated count 06/20/2024 08:38:22 Final Performing Location [facility] [place] [address]
--- OUTSIDE RECORDS SUMMARY | 2024-07-27 10:45 | External Medical Summary ---
Author Name Unknown Address Unknown Organization [facility] [address] [place] [address] Laboratory Report Ordering Provider Test Date Status CARLENE PEREZ 06/20/2024 08:38:22 Final Observation Date Value Abnormality Reference (Units ) Status BUN 06/20/2024 08:38:22 15 6-20 (mg/dL) Final Creatinine 06/20/2024 08:38:22 1.4 Above high normal 0.6-1.2 (mg/dL) Final Glomerular filtration rate/1.73 sq M.predicted [Volume Rate/Area] in Serum, Plasma or Blood by Creatinine-based formula (CKD-EPI) 06/20/2024 08:38:22 55 Below low normal >=60 (mL/min) Final eGFR is calculated based on the CKD-EPI 2020 equation. Sodium 06/20/2024 08:38:22 138 135-146 (m mol/L) Final Potassium 06/20/2024 08:38:22 4.0 3.5-5.1 (m mol/L) Final Cl 06/20/2024 08:38:22 105 98-107 (mm ol/L) Final CO2 06/20/2024 08:38:22 24 22-32 (mmo l/L) Final Anion gap 06/20/2024 08:38:22 9 7-15 (mmol /L) Final Glucose 06/20/2024 08:38:22 136 Above high normal 70 -120 (mg/dL) Final Albumin 06/20/2024 08:38:22 3.2 Below low normal 3.8 -5.0 (g/dL) Final AST (Aspartate aminotransferase) 06/20/2024 08:38:22 10 10-50 (U/L) Fin al Alk Phos 06/20/2024 08:38:22 75 35-130 (U/ L) Final Bilirubin, Total 06/20/2024 08:38:22 0.9 <=1 .2 (mg/dL) Final Calcium 06/20/2024 08:38:22 8.6 8.4-10.2 ( mg/dL) Final Protein 06/20/2024 08:38:22 8.3 6.0-8.3 (g /dL) Final ALT (Alanine aminotransferase) 06/20/2024 08:38:22 14 10-50 (U/L) Toby pruett Performing Location [facility] [address] [place] [address]
--- OUTSIDE RECORDS SUMMARY | 2024-07-27 10:45 | External Medical Summary | Summary of Care ---
Author Name Unknown Organization [facility] Address [address] [place] [address] Phone [phone] Care Team Providers Care Lock Maintenance Supervisor Name Role Phone Jean Claude Yao DO Primary Care Provider [phone] Reason for Visit * Reason Onset Date Comments Test Results 06/13/2024 Unexpected or In determinate Result Encounter Details Date Type Department Care Team (Late st Contact Info) Description 06/13/2024 Telephone Radiology [address] [facility] [place] [address] Abbey Aguiar MD [address] [place] [address] Test Results (Unexpected or Indeterminate ... Allergies No known active allergiesdocumented as of [...] Powder (Psyllium) Take by mouth. Act casey Acyclovir 400 MG Oral Tablet (Zovirax)Indicati ons:Smoldering multiple myeloma (SMM) Take 1 Tablet by mouth in the morning and 1 Tablet before bedtime. 60 Tablet 5 12/16/2023 Active glipiZIDE ER 2.5 MG Oral Tablet [...] every 28 days. 21 Capsule 05/27/2024 Active documented as of this encounter (statuses [...] encounter Miscellaneous Notes * Telephone Encounter - Radha Odell OSA - 06/13/2024 12:18 PM EDT Hello- The radiologist discovered an unexpected or indeterminate finding on Jeff Martin ([id number]) and asks that you review the following report. IMPRESSION IMPRESSION 1. Similar diffusely increased uptake of the T8 vertebral body with associated mild height loss as compared with prior PET-CT dated 01/20/2023, likely representing chronic compression fracture. The possibility of multiple myeloma is considered less likely. This could be further evaluated with MRI of the thoracic spine, if clinically indicated. Study Type:PET CT WHOLE BODY FDG Date of Study: 06/13/2024 Please respond to this encounter to acknowledge receipt of this message and take responsibility to ensure this report is reviewed. Thank you, RANDOLPH Mustafa Client Service Rep [facility] documented in this encounter Plan of Treatment Upcoming Encounters Date Type Department Care Team (Latest Contact Info) Description 06/22/2024 9:00 AM EDT Pharmacy Pharmacy Hematology Oncology [address] [address] [facility] Hem/Onc [address] [place] [address] 06/23/2024 1:45 PM EDT Immunization/Injec tion Hematology/Oncology [facility] [place] [address] [place], [place] [phone] Laure, Chair 1 Hem Onc [facility] [address] [place] [address] 06/29/2024 9:00 AM EDT Office Visit Hematology/Oncology [facility] [address] [place] [id number] Abbey Aguiar MD [address] [place] [address] 08/23/2024 10:00 AM EDT Office Visit Family Practice [address] [place] [address] [address] [place] [address] Jean Claude Yao DO [address] [facility] [address] 09/08/2024 2:30 PM EDT Hospital Encounter ENDO OSS[facility], Endoscopy Room [facility] [address] [place] [phone] Irving yIer MD 132 [facility] [place] [address] 09/08/2024 2:30 PM EDT - 09/08/2024 3:00 PM EDT Surgery ENDO [facility], Endoscopy Room [facility] [address] [place] [phone] Irving Iyer MD [address] [place] [address] COLONOSCOPY FLEXIBLE PROXIMAL DIAGNOSTIC 03/13/2025 11:00 AM EDT Office Visit Sleep Disorders Ctr [facility] [address] [place] [phone] Ruma Orellana, DO [address] [place] [address] Scheduled Procedures Name Priority Associated Diagnoses Date/Ti me COLONOSCOPY FLEXIBLE PROXIMAL DIAGNOSTIC Recall History of colonic polyps 09/08/2024 2:30 PM EDT Health Maintenance Due Date Last Done Comments Cologuard 1997 Fecal Occult Blood Test 1997 Sigmoidoscopy 1997 COVID-19 Vaccine (3 - Moderna risk series) 04/19/2021 03/22/2021, 02/21/2021 Zoster Vaccines (2 of 2) 02/03/2023 12/09/2022, 1211/2011 CKD PHOS USE SMARTSET 93558 06/15/2024 06/15/2023 Colonoscopy 06/29/2024 06/29/2023, 06/16, 03/16/2023, Additional history exists Colorectal Cancer Screening 06/29/2024 Influenza Vaccine (FLU shot) (#1) 2024 08/03/2023, 08/08/2022 HbA1c 09/29/2024 03/29/2024, 1211/2022, 06/15/2023 Depression Screening 09/30/2024 09/30/2023 GFR 12/21/2024 06/20/2024, 05/17, 05/30/2024, Additional history exists Diabetic Eye Exam 01/20/2025 01/21/2024, , 05/26/2022 Diabetic Foot Exam 04/12/2025 04/12/2024, 04/12/2024 Albumin/Creatinine Ratio 05/09/2025 024, 06/15/2023, 06/03/2022 CKD HGB USE SMARTSET 97799 06/20/202506/20, 06/20/2024, 06/07/2024, Additional history exists DTaP,Tdap,and [...] this encounter Medical Devices Implanted Type Area Circular Tank Cooper Device Identifier Shelf Expiration Date Model / Serial / Lot Sureclip 16mm 235cm - [id number] Implanted:Qty: 1 on 03/16/2023 by Irving Iyer MD at OR [facility] MICRO [employer]CH ENDOSCOPY [id number] 05/19/2025 [id number] / / [id number] Duraclip 16mm Xlg Repostn - [id number] Implanted:Qty: 1 on 03/16/2023 by [place] Iyer MD at OR [facility] [employer] [id number] 05/18/2024 [id number] / / [id number] Duraclip 16mm Xlg Repostn - [id number] Implanted:Qty: 1 on 03/16/2023 by [place] Iyer MD at OR [facility] [employer] [id number] 05/18/2024 [id number] / / [id number] Duraclip 16mm Xlg Repostn - [id number] Implanted:Qty: 1 on 03/16/2023 by [place] Iyer MD at OR [facility] [employer] [id number] 05/18/2024 [id number] / / [id number] Duraclip 16mm Xlg Repostn - [id number] Implanted:Qty: 1 on 03/16/2023 by Irving Iyer MD at OR [facility] [employer] [id number] 05/18/2024 [id number] / / [id number] Duraclip 16mm Xlg Repostn - [id number] Implanted:Qty: 1 on 03/16/2023 by Irving Iyer MD at OR [facility] [employer] [id number] 05/18/2024 [id number] / / [id number] Duraclip 16mm Xlg Repostn - [id number] Implanted:Qty: 1 on 03/16/2023 by Irving Iyer MD at OR [facility] [employer] [id number] 05/19/2024 [id number] / / [id number] Duraclip 16mm Xlg Repostn - [id number] Implanted:Qty: 1 on 03/16/2023 by Irving Iyer MD at OR [facility] [employer] [id number] 05/19/2024 [id number] / / [id number] Duraclip 16mm Xlg Repostn - [id number] Implanted:Qty: 1 on 03/16/2023 by Irving Iyer MD at OR [facility] [employer] [id number] 05/19/2024 [id number] / / [id number] Duraclip 16mm Xlg Repostn - [id number] Implanted:Qty: 1 on 03/16/2023 by Irving Iyer MD at OR [facility] [employer] [id number] 05/18/2024 [id number] / / [id number] Duraclip 16mm Xlg Repostn - [id number] Implanted:Qty: 1 on 03/16/2023 by Irving Iyer MD at OR [facility] [employer] [id number] 05/18/2024 [id number] / / [id number] Duraclip 16mm Xlg Repostn - [id number] Implanted:Qty: 1 on 03/16/2023 by Irving Iyer MD at OR [facility] [employer] [id number] 05/18/2024 [id number] / / [id number] Duraclip 16mm Xlg Repostn - [id number] Implanted:Qty: 1 on 03/16/2023 by Irving Iyer MD at OR [facility] [employer] PHILLIP [id number] 05/18/2024 [id number] / / [id number] Duraclip 16mm Xlg Repostn - [id number] Implanted:Qty: 1 on 03/16/2023 by [place] Iyer MD at OR [facility] [email or web address] PHILLIP [id number] 05/18/2024 [id number] / / [id number] documented as of this encounter Care Teams Lock Maintenance Supervisor Relationship Specialty Start Date End Date Jean Claude Yao DO [address] [facility] [place] [address] PCP - General Internal Medicine 05/09/24 documented as of this encounter
--- OUTSIDE RECORDS SUMMARY | 2024-07-27 10:45 | External Medical Summary | Summary of Care ---
Author Name Unknown Organization [facility] Address [address] [place] [address] Phone [phone] Care Team Providers Care Protection Mgr Name Role Phone Jean Claude Yao DO Primary Care Provider [phone] Reason for Referral * Evaluate & Treat - Unlimited Visits (Within 10 days (routine)) - Authorized Specialty Diagnoses / Procedures Referred By Contac t Referred To Contact Pharmacist / Pharmacy Diagnoses Type 2 diabetes mellitus with hemoglobin A1c goal of less than 8.0% (HCC) [facility] systemic steroid user Abbey Aguiar MD [address] [place] [address] Referral ID Status Reason Start Date Expiration Date Visits Requested Visits Authorized [id number] Authorized Specialty Services Required 06/13/2024 12/10/2024 99 99 Question Answer Referral Priority Within 10 days (routine) Where should this appointment be scheduled? [facility] Referring Provider Role: Specialist Specialty: Heme/Onc Reason for Referral: DM Target A1c: Symptom Mgmt Comments Pt with hx of DM2, currently on oral medications for this. Taking 20mg Dexamethasone weekly with good glucose control currently but this will be increasing to 40mg weekly. Pt agreeable to discussing further management with a pharmacist to help with control during this time. By my signature, I understand that my patient Jeff Martin will have his medication therapy managed by the [facility] ([facility]) per established policies, procedures, and protocols. I also certify that this referral may serve as an initiation of service for the management of drug therapy in the above noted patient. [facility] providers will be responsible for scheduling patient visits, obtaining appropriate laboratory studies, and adjusting medication management therapy per patient's need, in addition to those roles spelled out in the clinic policy, procedures, and drug management protocols. I understand that the service provided by the [facility] is voluntary and have informed patient that they can refuse the service at their discretion. I am aware that the [facility] will provide me with a copy of the patient encounter via my [employer] [facility] [facility]. I authorize the [facility] to carry out these activities on my behalf. I consider this program to be a necessary part of the patient's medical care. Kiran Live RN Reason for Visit * Reason Onset Date Comments Precert Future 06/02/2024 Gustavo johnston Encounter Details Date Type Department Care Team (Late st Contact Info) Description 06/02/2024 Telephone Hematology/Oncology Kelli Kelsey [place] [address] [facility] [place] [phone] Abbey Aguiar MD [address] [place], [place] [address] Precert Future (Gustavo johnston) Allergies No known active allergiesdocumented as of this encounter (statuses as of 06/17/2024) Medications Medication Sig Dispensed Refills Start Date [...] as of this encounter (statuses as of 06/17/2024) Active Problems Problem Noted Date Diagnosed Date [...] as of this encounter (statuses as of 06/17/2024) Resolved Problems Problem Noted Date Diagnosed Date Resolved Date Prediabetes 10/26/2023 12/31/2023 Overview: Per Prediabetes protocol Hypertensive kidney disease with stage 3a chronic kidney disease 07/02/2023 03/29/2024 Lesion of pancreas 12/09/2022 documented as of this encounter (statuses as of 06/17/2024) Immunizations Name Administration Dates Next Due COVID-19 [...] encounter Miscellaneous Notes * Telephone Encounter - Brisa Childs OSA - 06/14/2024 8:22 AM EDT Labs were scheduled * Telephone Encounter - Kiran Live RN - 06/13/2024 4:18 PM EDT Please schedule lab appointment on 06/20 at 8:30am "CBCD,CMP" * Telephone Encounter - Brisa Childs OSA - 06/13/2024 11:29 AM EDT Apt is scheduled and pt is aware * Telephone Encounter - Kiran Live RN - 06/13/2024 11:20 AM EDT Spoke with patient, he is ok with having labs the same day as treatment. Scheduling- please schedule the following next week: - Labs 1 hour prior to treatment at [facility] "CBCD,CMP" - 4 hour treatment "Misty/Velcade C1,D1" (Stefania). This will need to be either Thursday or Thursday. - 15 min injection apt "Velcade C1,D4" 3 days after previous appointment. * Addendum Note - Kiran Live RN - 06/13/2024 11:04 AM EDTAddended by: KIRAN LIVE on: 06/13/2024 11:04 AM Modules accepted: Orders * Telephone Encounter - Kiran Live RN - 06/13/2024 11:03 AM EDT Tried calling patient to see if he would like to have his labs done the day prior or the day of histreatment. No answer, LMOM with return #. If patient chooses day prior he can be scheduled any day but Thursday. * Telephone Encounter - Kiran Live RN - 06/13/2024 10:47 AM EDT Called patient and reviewed medication with him, the need for IV the first 3 weeks with Darzalex and is aware that he will need to wait 4 hours for his first treatment when he is here. Pt would like referral to MTM to help with diabetes control when dexamethasone is increased. Reviewed that patient will continue to take 20mg of Dexamethasone weekly and will receive 20mg of Dexamethasone when he comes for his first 3 Darzalex injections. Pt made aware that after the third week he will change to 40mg of Dexamethasone weekly by mouth. Calendar to be provided. * Telephone Encounter - Kiran Live RN - 06/13/2024 10:19 AM EDT Referral entered for Darzalex and Revlimid. * Telephone Encounter - Carolina Mckee RN - 06/07/2024 7:44 AM EDT Referral entered for velcade. Waiting for darzalex faspro and revlimid. * Telephone Encounter - Daniella Zavala OSA - 06/06/2024 10:51 AM EDT Team aware * Telephone Encounter - Carolina Mckee RN - 06/06/2024 10:[address] Aguiar's routing comment: "Can do peer to peer and try to get this approve" Precert: please re-submit for auth- Dr Aguiar aware that this will be denied and will need to be appealed/ peer to peer performed. Thanks! * Telephone Encounter - Carolina Mckee RN - 06/03/2024 2:48 PM EDT Spoke to precert/ P. For darzalex to be approved, patient needs to: - try and fail a prior therapy such as a proteasome inhibitor or an immunomodulatory agent Patient failed revlimid - they need to also be using darzalex with one of the following regimens: lenalidomide/ dexamethasone, bortezomib/ dexamethasone, or carfilzomib/ dexamethasone Patient has darzalex, lenalidomide, bortezomib, and dexamethasone ordered Clarified that insurance will not approve darzalex in combination with lenalidomide, bortezomib, and dexamethasone Dr Aguiar: please advise how you would like to proceed - do you want to continue with request as currently ordered and do a peer to peer if this is denied? - do you want to change order? Insurance withdrew precert request as this would have been denied if not answered by the end of theday 06/03/24 (Dr Aguiar off). Thanks! * Telephone Encounter - Kiran Lvie RN - 06/02/2024 2:50 PM EDT Orders received, beacon plan built and routed. Awaiting auth. -Chemo Consent: 06/01/24 -Chemo Education: 06/03/24 -Port Placement: N/A -Standing Lab orders placed: Weekly CBCD,CMP , Monthly SPEP, Colman, IgG Pt will need T&S completed at [facility] prior to starting Darzalex -Medications Pended: None, already prescribed Dexamethasone, Acyclovir, and Aspirin -Hep B Labs: Completed 05/21/23 documented in this encounter Plan of Treatment Upcoming Encounters Date Type Department Care Team (Latest Contact Info) Description 06/20/2024 8:30 AM EDT Laboratory Laboratory [facility] Laure [address] [place] [phone] Laure, Lab [address] [facility] [place] [id number] 06/20/2024 9:30 AM EDT Hem/Onc Treatment Hematology/Oncolog [address], [address] [phone] Laure, Chair 7 Hem Onc [address] [place] [address] 06/22/2024 9:00 AM EDT Pharmacy Pharmacy Hematology Oncology [facility] [address] [place] [address] [facility] Hem/Onc [address] [place] [address] 06/23/2024 1:45 PM EDT Immunization/Inject ion Hematology/Oncolog y Treatment, [address] [phone] Laure, Chair 1 Hem Onc [address] [place] [address] 06/29/2024 9:00 AM EDT Office Visit Hematology/Oncolog y [facility] [address] [place] [address] Abbey Aguiar MD [address] [place] [address] 08/23/2024 10:00 AM EDT Office Visit Family [facility] [address] [facility] [address] [place] [place] [address] Jean Claude Yao, [address] [facility], [place] [address] 09/08/2024 2:30 PM EDT Hospital Encounter ENDO [facility], Endoscopy Room [facility] [address] [place] [phone] Irving Iyer MD [address] [place] [address] 09/08/2024 2:30 PM EDT - 09/08/2024 3:00 PM EDT Surgery ENDO [facility], Endoscopy Room [facility] [address] [place] [phone] Irving Iyer MD [address] [place] [address] COLONOSCOPY FLEXIBLE PROXIMAL DIAGNOSTIC 03/13/2025 11:00 AM EDT Office Visit [facility] Disorders Ctr Ruel Watts, [place] [address] [place] [phone] Ruma Orellana DO [address] [place] [address] Scheduled Orders Name Type Priority Associated Diagnoses Orde r Schedule CBC WITH WBC DIFFERENTIAL Lab STAT Multiple myeloma not having achieved remission (HCC) Every Week for 52 Occurrences starting 06/02/2024 until 06/02/2025, 1 completed COMPREHENSIVE METABOLIC PANEL Lab STAT Multiple myeloma not having achieved remission (HCC) Every Week for 52 Occurrences starting 06/02/2024 until 06/02/2025, 1 completed SERUM FREE LIGHT CHAINS Lab STAT Multiple myeloma not having achieved remission (HCC) Every Month for 12 Occurrences starting 06/02/2024 until 06/02/2025, 1 completed SERUM PROTEIN ELECTROPHORESIS REFLEX PROFILE Lab STAT Multiple myeloma not having achieved remission (HCC) Every Month for 12 Occurrences starting 06/02/2024 until 06/02/2025, 1 completed IMMUNOGLOBULIN QUANTITATIVE Lab STAT Multiple myeloma not having achieved remission (HCC) Every Month for 12 Occurrences starting 06/02/2024 until 06/02/2025, 1 completed Scheduled Procedures Name Priority Associated Diagnoses Date/Ti me COLONOSCOPY FLEXIBLE PROXIMAL DIAGNOSTIC Recall History of colonic polyps 09/08/2024 2:30 PM EDT Scheduled Referrals Name Type Priority Associated Diagnoses Orde r Schedule PHARMACIST MEDS THERAPY MGMT REFERRAL OP Referral Within 10 days (routine) Type 2 diabetes mellitus with hemoglobin A1c goal of less than 8.0% (HCC) 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 Ordered: 06/13/2024 Health Maintenance Due Date Last Done Comments Cologuard 1997 Fecal Occult Blood Test 1997 Sigmoidoscopy 1997 COVID-19 Vaccine (3 - Moderna risk series) 04/19/2021 03/22/2021, 02/21/2021 Zoster Vaccines (2 of 2) 02/03/2023 12/09/2022, 11/2011 CKD PHOS USE SMARTSET 22303 06/15/2024 06/15/2023 Colonoscopy 06/29/2024 06/29/2023, 06/16, 03/16/2023, Additional history exists Colorectal Cancer Screening 06/29/2024 Influenza Vaccine (FLU shot) (#1) 2024 08/03/2023, 08/08/2022 HbA1c 09/29/2024 03/29/2024, 11/2022, 06/15/2023 Depression Screening 09/30/2024 09/30/2023 GFR 12/08/2024 06/07/2024, 05/16, 05/09/2024, Additional history exists Diabetic Eye Exam 01/20/2025 01/21/2024, , 05/26/2022 Diabetic Foot Exam 04/12/2025 04/12/2024, 04/12/2024 Albumin/Creatinine Ratio 05/09/2025 024, 06/15/2023, 06/03/2022 CKD HGB USE SMARTSET 34313 06/07/202506/07, 06/07/2024, 05/30/2024, Additional history exists DTaP,Tdap,and Td Vaccines (3 [...] this encounter Medical Devices Implanted Type Area Detective Bureau Chief Device Identifier Shelf Expiration Date Model / Serial / Lot Sureclip 16mm 235cm - [id number] Implanted:Qty: 1 on 03/16/2023 by Irving Iyer MD at OR [facility] MICRO TECH ENDOSCOPY [id number] 05/19/2025 [id number] / / [id number] Duraclip 16mm Xlg Repostn - [id number] Implanted:Qty: 1 on 03/16/2023 by Irving Iyer MD at OR [facility] [employer]IP [id number] 05/18/2024 [id number] / / [id number] Duraclip 16mm Xlg Repostn - [id number] Implanted:Qty: 1 on 03/16/2023 by Irving Iyer MD at OR [facility] [employer] [id number] 05/18/2024 [id number] / / [id number] Duraclip 16mm Xlg Repostn - [id number] Implanted:Qty: 1 on 03/16/2023 by Irving Iyer MD at OR [facility] [employer] [id number] 05/18/2024 [id number] / / [id number] Duraclip 16mm Xlg Repostn - [id number] Implanted:Qty: 1 on 03/16/2023 by Irving Iyer MD at OR [facility] [employer] [id number] 05/18/2024 [id number] / / [id number] Duraclip 16mm Xlg Repostn - [id number] Implanted:Qty: 1 on 03/16/2023 by Irving Iyer MD at OR [facility] [employer] [id number] 05/18/2024 [id number] / / [id number] Duraclip 16mm Xlg Repostn - [id number] Implanted:Qty: 1 on 03/16/2023 by Irving Iyer MD at OR [facility] [employer] [id number] 05/19/2024 [id number] / / [id number] Duraclip 16mm Xlg Repostn - [id number] Implanted:Qty: 1 on 03/16/2023 by Irving Iyer MD at OR [facility] [employer] [id number] 05/19/2024 [id number] / / [id number] Duraclip 16mm Xlg Repostn - [id number] Implanted:Qty: 1 on 03/16/2023 by Irving Iyer MD at OR [facility] [employer] [id number] 05/19/2024 [id number] / / [id number] Duraclip 16mm Xlg Repostn - [id number] Implanted:Qty: 1 on 03/16/2023 by Irving Iyer MD at OR [facility] [employer] [id number] 05/18/2024 [id number] / / [id number] Duraclip 16mm Xlg Repostn - [id number] Implanted:Qty: 1 on 03/16/2023 by Irving Iyer MD at OR [facility] [employer] [id number] 05/18/2024 [id number] / / [id number] Duraclip 16mm Xlg Repostn - [id number] Implanted:Qty: 1 on 03/16/2023 by Irving Iyer MD at OR [facility] [employer] [id number] 05/18/2024 [id number] / / [id number] Duraclip 16mm Xlg Repostn - [id number] Implanted:Qty: 1 on 03/16/2023 by Irving Iyer MD at OR [facility] [employer] [id number] 05/18/2024 [id number] / / [id number] Duraclip 16mm Xlg Repostn - [id number] Implanted:Qty: 1 on 03/16/2023 by Irving Iyer MD at OR [facility] [employer] [id number] 05/18/2024 [id number] / / [id number] documented as of this encounter Results * (ABNORMAL) IMMUNOGLOBULIN QUANTITATIVE (06/07/2024 10:36 AM EDT) [facility] IgG 3,394(H) 700 - 1,600 mg/dL 06/07/2024 8:46 PM EDT LAB[facility]ATORY [facility] IgA 30(L) 70 - 400 mg/dL 06/07/2024 8:46 PM EDT LAB[facility]ATORY [facility] IgM 13(L) 40 - 230 mg/dL 06/07/2024 8:46 PM EDT LABORATORY [facility] Blood Venous blood specimen / Unknown Venipuncture / Unknown 06/07/2024 10:36 AM EDT 06/07/2024 10:36 AM EDT Abbey Aguiar MD LAB BLOOD ORDERA BLES LABORATORY [facility] [address] [place] [address] * (ABNORMAL) SERUM PROTEIN ELECTROPHORESIS REFLEX PROFILE (06/07/2024 10:36 AM EDT) Pathologist [facility] Normal/Abnormal Abnormal(A) Normal 06/08/20 3:53 PM EDT LAB[facility]ATORY [facility] Protein 7.7 6.0 - 8.3 g/dL 06/08/2024 3:53 PM EDT LAB[facility] Albumin 3.00(L) 3.30 - 4.40 g/dL 06/08/2024 3:53 PM EDT LAB[facility] Alpha-1 Globulin 0.18 0.10 - 0.30 g/dL 06/08/2024 3:53 PM EDT LAB[facility]AT[facility] Alpha-2 Globulin 0.88 0.60 - 1.00 g/dL 06/08/2024 3:53 PM EDT LAB[facility]ATORY [facility] Beta-Globulin 0.91 0.80 - 1.30 g/dL 06/08/2024 3:53 PM EDT LAB[facility]ATORY [facility] Gamma-Globulin 2.53(H) 0.70 - 1.70 g/dL 06/08/2024 3:53 PM EDT LAB[facility] M Hans 2.31 g/dL 06/08/2024 3:53 PM EDT LAB[facility] Electrophoresis Interpretation Abnormal. 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 06/08/2024 3:53 PM EDT LABORATORY [facility] Blood Venous blood specimen / Unknown Venipuncture / Unknown 06/07/2024 10:36 AM EDT 06/07/2024 10:36 AM EDT Abbey Aguiar MD LAB BLOOD ORDERA BLES Performing Organization Address City/State/[facility] Co de Phone Number LABORATORY [facility] [address] [place] [address] * (ABNORMAL) SERUM FREE LIGHT CHAINS (06/07/2024 10:36 AM EDT) [facility] Colman Free Light Chains, Serum 8.62 3.30 - 19.40 mg/L 06/08/2024 8:49 AM EDT LABORATORY [facility] Lambda Free Light Chains, Serum 641.50(H) 5.71 - 26.30 mg/L 06/08/2024 8:49 AM EDT LABORATORY [facility] Colman Lambda Free Light Chains Ratio 0.01(L) 0.26 - 1.65 06/08/2024 8:49 AM EDT LABORATORY [facility] Blood Venous blood specimen / Unknown Venipuncture / Unknown 06/07/2024 10:36 AM EDT 06/07/2024 10:36 AM EDT Abbey Aguiar MD LAB BLOOD ORDERA BLES LABORATORY [facility] [address] [place] [address] * (ABNORMAL) COMPREHENSIVE METABOLIC PANEL (06/07/2024 10:36 AM EDT) BUN 26(H) 6 - 20 mg/dL 06/07/2024 11:03 AM EDT [address] Creatinine 1.5(H) 0.6 - 1.2 mg/dL 06/07/2024 11:03 AM EDT [address] Estimated Glomerular Filtration Rate 51(L) >=60 mL/min 06/07/2024 11:03 AM T [address] Comment:eGFR is calculated b ased on the CKD-EPI 2020 equation. Sodium 139 135 - 146 mmol/L 06/07/2024 11:03 AM T [address] Potassium 3.6 3.5 - 5.1 mmol/L 06/07/2024 11:03 AM T [facility] 56 Chloride 106 98 - 107 mmol/L 06/07/2024 11:03 AM EDT [address] CO2 22 22 - 32 mmol/L 06/07/2024 11:03 AM EDT [address] Anion Gap 11 7 - 15 mmol/L 06/07/2024 11:03 AM T [address] Glucose 117 70 - 120 mg/dL 06/07/2024 11:03 AM T [facility] 56 Albumin 3.3(L) 3.8 - 5.0 g/dL 06/07/2024 11:03 [address] EDT [address] AST 11 10 - 50 U/L 06/07/2024 11:03 AM EDT [address] Alkaline Phosphatase 66 35 - 130 U/L 06/07/2024 11:03 AM EDT [facility] 56- Bilirubin, Total 0.4 <=1.2 mg/dL 06/07/2024 11:03 AM EDT [facility] 56- Calcium 8.4 8.4 - 10.2 mg/dL 06/07/2024 11:03 AM EDT [facility] 56- Protein 8.2 6.0 - 8.3 g/dL 06/07/2024 11:03 AM EDT [facility] 56- ALT 12 10 - 50 U/L 06/07/2024 11:03 AM EDT [facility] 56 Blood Venous blood specimen / Unknown Venipuncture / Unknown 06/07/2024 10:36 AM EDT 06/07/2024 10:36 AM EDT Abbey Aguiar MD LAB BLOOD ORDERA BLES [facility] [address] [place] [address] * TYPE AND SCREEN (06/06/2024) Blood Venous blood specimen / Unknown 06/06/2024 Abbey Aguiar MD LAB BLOOD BANK T EST ORDERABLES documented in this encounter Visit Diagnoses Diagnosis Type 2 diabetes mellitus with hemoglobin A1c goal of less than 8.0% (HCC)- Primary Multiple myeloma not having achieved remission (HCC) Multiple myeloma, without mention of having achieved remission 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 History of colonic polyps Personal history of colonic polyps documented in this encounter Care Teams Protection Mgr Relationship Specialty Start Date End Date Jean Claude Yao DO [address] [place] [address] PCP - General Internal Medicine 05/09/24 documented as of this encounter
--- OUTSIDE RECORDS SUMMARY | 2024-07-27 10:45 | External Medical Summary | Summary of Care ---
Author Name Unknown Organization [facility] Address [address] [place] [address] Phone [phone] Care Team Providers Care Hogshead Builder Name Role Phone Jean Claude Yao DO Primary Care Provider [phone] Reason for Referral * Evaluate & Treat - Unlimited Visits (Within 10 days (routine)) - Authorized Specialty Diagnoses / Procedures Referred By Contac t Referred To Contact Pharmacist / Pharmacy Diagnoses Type 2 diabetes mellitus with hemoglobin A1c goal of less than 8.0% (HCC) intermediate manager systemic steroid user Abbey Aguiar MD [address] [place] [address] Referral ID Status Reason Start Date Expiration Date Visits Requested Visits Authorized [id number] Authorized Specialty Services Required 06/13/2024 12/10/2024 99 99 Question Answer Referral Priority Within 10 days (routine) Where should this appointment be scheduled? [facility] Referring Provider Role: Specialist Specialty: Heme/Onc [...] have his medication therapy managed by the [facility] ([facility]) per established policies, procedures, and protocols. I also certify that this referral may serve as an initiation of service for the management of drug therapy in the above noted patient. [facility] providers will be responsible for scheduling patient visits, obtaining appropriate laboratory studies, and adjusting medication management therapy per patient's need, in addition to those roles spelled out in the clinic policy, procedures, and drug management protocols. I understand that the service provided by the [facility] is voluntary and have informed patient that they can refuse the service at their discretion. I am aware that the [facility] will provide me with a copy of the patient encounter via my Timely InImgursket. I authorize the [facility] to carry out these activities on my behalf. I consider this program to be a necessary part of the patient's medical care. Kiran Live RN Reason for Visit * Reason Onset Date Comments Precert Future 06/02/2024 Gustavo johnston Encounter Details Date Type Department Care Team (Late st Contact Info) Description 06/02/2024 Telephone Hematology/Oncology Kelli Kelsey [place] 200 [facility] [place] [address] Abbey Aguiar MD [address] [place], [place] [address] Precert Future (Gustavo johnston) Allergies No known active allergiesdocumented as of this encounter (statuses as of 06/14/2024) Medications Medication Sig Dispensed Refills Start Date [...] as of this encounter (statuses as of 06/14/2024) Active Problems Problem Noted Date Diagnosed Date [...] as of this encounter (statuses as of 06/14/2024) Resolved Problems Problem Noted Date Diagnosed Date Resolved Date Prediabetes 10/26/2023 12/31/2023 Overview: Per Prediabetes protocol Hypertensive kidney disease with stage 3a chronic kidney disease 07/02/2023 03/29/2024 Lesion of pancreas 12/09/2022 documented as of this encounter (statuses as of 06/14/2024) Immunizations Name Administration Dates Next Due COVID-19 [...] were scheduled * Telephone Encounter - Kiran Liev RN - 06/13/2024 4:18 PM EDT Please [...] Labs 1 hour prior to treatment at [facility] "CBCD,CMP" - 4 hour treatment "Misty/Velcade [...] off). Thanks! * Telephone Encounter - Kiran Live RN - 06/02/2024 2:50 PM EDT Orders received, beacon plan built and routed. Awaiting auth. -Chemo Consent: 06/01/24 -Chemo Education: 06/03/24 -Port Placement: N/A -Standing Lab orders placed: Weekly CBCD,CMP , Monthly SPEP, [place], IgG Pt will need T&S completed at [facility] prior to starting Darzalex -Medications Pended: None, already prescribed Dexamethasone, Acyclovir, and Aspirin -Hep B Labs: Completed 05/21/23 documented in this encounter Plan of Treatment Upcoming Encounters Date Type Department Care Team (Latest Contact Info) Description 06/20/2024 8:30 AM EDT [facility] [address] [place] [phone] Laure, Lab [address] [place] [address] 06/20/2024 9:30 AM EDT Hem/Onc Treatment Hematology[facility]On[facility]olog [facility], [place] [facility] [phone] Laure, Chair 7 Hem Onc [address] [place] [address] 06/22/2024 9:00 AM EDT Pharmacy Pharmacy Hematology Oncology [facility] [address] [place] [address] [facility] Hem/Onc [address] [place] [address] 06/23/2024 1:30 PM EDT Immunization/Inject ion Hematology/Oncolog y Treatment, [address] [place] [phone] 06/29/2024 9:00 AM EDT Office Visit Hematology/Oncolog y [facility] Laure [address] [place] [phone] Abbey Aguiar MD 200 [facility] [place] [address] 08/23/2024 10:00 AM EDT Office Visit Family Practice [address] [place] [address] 293 [facility] [place] [address] Jean Claude Yao, DO 293 [place] [address] 09/08/2024 2:30 PM EDT Hospital Encounter ENDO OSS[facility], Endoscopy Room OSS [address] [place] [phone] Irivng Iyer MD [address] [place] [address] 09/08/2024 2:30 PM EDT - 09/08/2024 3:00 PM EDT Surgery ENDO OSS[facility], Endoscopy Room OSS [address] [place] [phone] Irving Iyer MD [address] [place] [address] COLONOSCOPY FLEXIBLE PROXIMAL DIAGNOSTIC 03/13/2025 11:00 AM EDT Office Visit Sleep Disorders Ctr [facility] [address] [phone] Ruma Orellana, [address] [place] [address] Scheduled Orders Name Type Priority Associated Diagnoses [...] A1c goal of less than 8.0% (HCC) intermediate manager systemic steroid user Ordered: 06/13/2024 Health Maintenance Due Date Last Done Comments Cologuard 1997 Fecal Occult Blood Test 1997 Sigmoidoscopy 1997 COVID-19 Vaccine (3 - Moderna risk series) 04/19/2021 03/22/2021, 02/21/2021 Zoster Vaccines (2 of 2) 02/03/2023 12/09/2022, 12/11/2011 CKD PHOS USE SMARTSET 63844 06/15/2024 06/15/2023 Colonoscopy 06/29/2024 06/29/2023, 06/16, 03/16/2023, Additional history exists Colorectal Cancer Screening 06/29/2024 Influenza Vaccine (FLU shot) (#1) 2024 08/03/2023, 08/08/2022 HbA1c 09/29/2024 03/29/2024, 12/0 11/2022, 06/15/2023 Depression Screening 09/30/2024 09/30/2023 GFR 12/08/2024 06/07/2024, 05/16, 05/09/2024, Additional history exists Diabetic Eye Exam 01/20/2025 01/21/2024, , 05/26/2022 Diabetic Foot Exam 04/12/2025 04/12/2024, 04/12/2024 Albumin/Creatinine Ratio 05/09/202505/09/2 024, 06/15/2023, 06/03/2022 CKD HGB USE SMARTSET 20254 06/07/202506/07, 06/07/2024, 05/30/2024, Additional history exists DTaP,Tdap,and Td Vaccines (3 - Td or Tdap) 04/07/2034 04/07/2024, 04/18/2015 Pneumococcal Vaccine: 65+ Years Completed 01/12/2019, 12/15/2017 *BASELINE EKG FOR HTN Completed 12/09/2022 AAA Screening Completed 02/21/2023, 12/2022, 08/01/2022, Additional history exists RETIRED - COLONOSCOPY-ANNUAL AGES 18-100 Discontinued 06/29/2023, 06/29/2023, 03/16/2023, Additional history exists Hepatitis C Screening Completed 03/29/2024 , 03/29/2024, 03/29/2024 HPV (Gardasil) Vaccine Aged Out No lo nger eligible based on patient's age to complete this topic Hepatitis B Vaccine Aged Out No longe r eligible based on patient's age to complete this topic MENINGOCOCCAL (MENACTRA/MENVEO) Aged Out No longer eligible based on patient's age to complete this topic documented as of this encounter Medical Devices Implanted Type Area Stations Superintendent Device Identifier Shelf Expiration Date Model / Serial / Lot Sureclip 16mm 235cm - [id number] Implanted:Qty: 1 on 03/16/2023 by Irving Iyer MD at OR [facility] MICRO TECH ENDOSCOPY [id number] 05/19/2025 [id number] / / [id number] Duraclip 16mm Xlg Repostn - [id number] Implanted:Qty: 1 on 03/16/2023 by Irving Iyer MD at OR [facility] [employer] PHILLIP [id number] 05/18/2024 [id number] / / [id number] Duraclip 16mm Xlg Repostn - [id number] Implanted:Qty: 1 on 03/16/2023 by Irving Iyer MD at OR [facility] [employer] PHILLIP [id number] 05/18/2024 [id number] / / [id number] Duraclip 16mm Xlg Repostn - [id number] Implanted:Qty: 1 on 03/16/2023 by Irving Iyer MD at OR [facility] [employer] [id number] 05/18/2024 [id number] / / [id number] Duraclip 16mm Xlg Repostn - [id number] Implanted:Qty: 1 on 03/16/2023 by Irving Iyer MD at OR [facility] [employer] [id number] 05/18/2024 [id number] / / [id number] Duraclip 16mm Xlg Repostn - [id number] Implanted:Qty: 1 on 03/16/2023 by Irving Iyer MD at OR [facility] [employer] [id number] 05/18/2024 [id number] / / [id number] Duraclip 16mm Xlg Repostn - [id number] Implanted:Qty: 1 on 03/16/2023 by Irving Iyer MD at OR [facility] [employer] [id number] 05/19/2024 [id number] / / [id number] Duraclip 16mm Xlg Repostn - [id number] Implanted:Qty: 1 on 03/16/2023 by Irving Iyer MD at OR [facility] [employer] [id number] 05/19/2024 [id number] / / [id number] Duraclip 16mm Xlg Repostn - [id number] Implanted:Qty: 1 on 03/16/2023 by Irving Iyer MD at OR [facility] [employer] [id number] 05/19/2024 [id number] / / [id number] Duraclip 16mm Xlg Repostn - [id number] Implanted:Qty: 1 on 03/16/2023 by Irving Iyer MD at OR [facility] [employer] [id number] 05/18/2024 [id number] / / [id number] Duraclip 16mm Xlg Repostn - [id number] Implanted:Qty: 1 on 03/16/2023 by Irving Iyer MD at OR [facility] [employer] [id number] 05/18/2024 [id number] / / [id number] Duraclip 16mm Xlg Repostn - [id number] Implanted:Qty: 1 on 03/16/2023 by Irving Iyer MD at OR [facility] [employer] [id number] 05/18/2024 [id number] / / [id number] Duraclip 16mm Xlg Repostn - [id number] Implanted:Qty: 1 on 03/16/2023 by Irving Iyer MD at OR [facility] [employer] [id number] 05/18/2024 [id number] / / [id number] Duraclip 16mm Xlg Repostn - [id number] Implanted:Qty: 1 on 03/16/2023 by Irving Iyer MD at OR [facility] [employer] [id number] 05/18/2024 [id number] / / [id number] documented as of this encounter Results * (ABNORMAL) IMMUNOGLOBULIN QUANTITATIVE (06/07/2024 10:36 AM EDT) [facility] IgG 3,394(H) 700 - 1,600 mg/dL 06/07/2024 8:46 PM EDT LABORATORY GM IgA 30(L) 70 - 400 mg/dL 06/07/2024 8:46 PM EDT LABORATORY GMC IgM 13(L) 40 - 230 mg/dL 06/07/2024 8:46 PM EDT LABORATORY [facility] Blood Venous blood specimen / Unknown Venipuncture / Unknown 06/07/2024 10:36 AM EDT 06/07/2024 10:36 AM EDT Abbey Aguiar MD LAB BLOOD ORDERA BLES LABORATORY [facility] [address] [place] [address] * (ABNORMAL) SERUM PROTEIN ELECTROPHORESIS REFLEX PROFILE (06/07/2024 10:36 AM EDT) [facility] Normal/Abnormal Abnormal(A) Normal 06/08/20 3:53 PM EDT [...] IgG lambda. 06/08/2024 3:53 PM EDT LABORATORY [facility] Blood Venous blood specimen / Unknown Venipuncture / Unknown 06/07/2024 10:36 AM EDT 06/07/2024 10:36 AM EDT Abbey Aguiar MD LAB BLOOD ORDERA BLES Performing Organization Address City/State/[facility] Co de Phone Number LABORATORY [facility] [address] [place] [address] * (ABNORMAL) SERUM FREE LIGHT CHAINS (06/07/2024 10:36 AM EDT) [facility] Millry Free Light Chains, Serum 8.62 3.30 - 19.40 mg/L 06/08/2024 8:49 AM EDT LABORATORY [facility] Lambda Free Light Chains, Serum 641.50(H) 5.71 - 26.30 mg/L 06/08/2024 8:49 AM EDT LABORATORY G[facility] Millry Lambda Free Light Chains Ratio 0.01(L) 0.26 - 1.65 06/08/2024 8:49 AM EDT LABORATORY [facility] Blood Venous blood specimen / Unknown Venipuncture / Unknown 06/07/2024 10:36 AM EDT 06/07/2024 10:36 AM EDT Pottermary Aguiar MD LAB BLOOD ORDERA BLES LABORATORY [facility] [address] [place] [address] * (ABNORMAL) COMPREHENSIVE METABOLIC PANEL (06/07/2024 10:36 AM EDT) BUN 26(H) 6 - 20 mg/dL 06/07/2024 11:03 AM EDT [address] Creatinine 1.5(H) 0.6 - 1.2 mg/dL 06/07/2024 11:03 AM EDT [address] Estimated Glomerular Filtration Rate 51(L) >=60 mL/min 06/07/2024 11:03 AM T [facility] 56 Comment:eGFR is calculated b ased on the CKD-EPI 2020 equation. Sodium 139 135 - 146 mmol/L 06/07/2024 11:03 AM T [facility] 56 Potassium 3.6 3.5 - 5.1 mmol/L 06/07/2024 11:03 AM T [facility] 56 Chloride 106 98 - 107 mmol/L 06/07/2024 11:03 AM EDT [facility] 56- CO2 22 22 - 32 mmol/L 06/07/2024 11:03 AM EDT [facility] 56 Anion Gap 11 7 - 15 mmol/L 06/07/2024 11:03 AM EDT [facility] 56 Glucose 117 70 - 120 mg/dL 06/07/2024 11:03 AM T [facility] 56 Albumin 3.3(L) 3.8 - 5.0 g/dL 06/07/2024 11:03 AM EDT [facility] 56 AST 11 10 - 50 U/L 06/07/2024 11:03 AM EDT [facility] 56- Alkaline Phosphatase 66 35 - 130 U/L 06/07/2024 11:03 AM EDT [facility] 56- Bilirubin, Total 0.4 <=1.2 mg/dL 06/07/2024 11:03 AM EDT [facility] 56- Calcium 8.4 8.4 - 10.2 mg/dL 06/07/2024 11:03 AM EDT [facility] 56- Protein 8.2 6.0 - 8.3 g/dL 06/07/2024 11:03 AM EDT [facility] 56- ALT 12 10 - 50 U/L 06/07/2024 11:03 AM T [facility] 56 Blood Venous blood specimen / Unknown Venipuncture / Unknown 06/07/2024 10:36 AM EDT 06/07/2024 10:36 AM EDT Abbey Aguiar MD LAB BLOOD ORDERA BLES [facility] 56 [address] [place] [address] * TYPE AND SCREEN (06/06/2024) Blood Venous blood specimen / Unknown 06/06/2024 Abbey Aguiar MD LAB BLOOD BANK T EST ORDERABLES documented in this encounter Visit Diagnoses Diagnosis Type 2 diabetes mellitus with hemoglobin A1c goal of less than 8.0% (HCC)- Primary Multiple myeloma not having achieved remission (HCC) Multiple myeloma, without mention of having achieved remission retirement systemic steroid user History of colonic polyps Personal history of colonic polyps documented in this encounter Care Teams Hogshead Builder Relationship Specialty Start Date End Date Jean Claude Yao DO [address] [place] [address] PCP - General Internal Medicine 05/09/24 documented as of this encounter
--- OUTSIDE RECORDS SUMMARY | 2024-07-27 10:45 | External Medical Summary | Summary of Care ---
Author Name Unknown Organization [facility] Address [address] [place] [address] Phone [phone] Care Team Providers Care Swimming Instructor Name Role Phone Jean Claude Yao DO Primary Care Provider [phone] Reason for Visit * Reason Onset Date Comments Test Results 06/13/2024 Unexpected or In determinate Result Encounter Details Date Type Department Care Team (Late st Contact Info) Description 06/13/2024 Telephone Radiology [address] [facility] [place] [address] Abbey Aguiar MD [address] [place] [address] Test Results (Unexpected or Indeterminate [...] unexpected or indeterminate finding on Jeff Martin ([id number]) and asks that you review the following [...] Thank you, RANDOLPH Mustafa Client Service Rep [facility] documented in this encounter Plan of Treatment Upcoming Encounters Date Type Department Care Team (Latest Contact Info) Description 06/20/2024 8:30 AM EDT Laboratory Laboratory [place] Seth Kelsey [address] [place] [address] [place], Lab Scenery [address] [facility] [place] [address] 06/20/2024 9:30 AM EDT Hem/Onc Treatment Hematology/Oncolog y Treatment, [place] 200 [facility], [place] [phone] Laure, Chair 7 Hem Onc [facility] 200 [facility] [place] [address] 06/22/2024 9:00 AM EDT Pharmacy Pharmacy Hematology Oncology [facility] [address] [place] [address] [facility] Hem/Onc [address] [place] [address] 06/23/2024 1:30 PM EDT Immunization/Inject ion Hematology/Oncolog y Treatment, [place] 200 [facility], [place] [phone] 06/29/2024 9:00 AM EDT Office Visit Hematology/Oncolog y [facility] [place] 200 [facility] [place] [phone] Abbey Aguiar MD 200 [facility] [place] [address] 08/23/2024 10:00 AM EDT Office Visit Family Practice [address] [place] [address] 293 [place] [address] Jean Claude Yao DO 293 [place] [address] 09/08/2024 2:30 PM EDT Hospital Encounter ENDO [facility], Endoscopy Room [facility] [address] [place] [phone] Irving Iyer MD [address] [place] [address] 09/08/2024 2:30 PM EDT - 09/08/2024 3:00 PM EDT Surgery ENDO [facility], Endoscopy Room [facility] [address] [place] [phone] Irving Iyer MD [address] [place] [address] COLONOSCOPY FLEXIBLE PROXIMAL DIAGNOSTIC 03/13/2025 11:00 AM EDT Office Visit Sleep Disorders Ctr [facility] [address] [place] [phone] Ruma Orellana DO [address] [place] [address] Scheduled Procedures Name Priority Associated Diagnoses Date/Ti me COLONOSCOPY FLEXIBLE PROXIMAL DIAGNOSTIC Recall History of colonic polyps 09/08/2024 2:30 PM EDT Health Maintenance Due Date Last Done Comments Cologuard 1997 Fecal Occult Blood Test 1997 Sigmoidoscopy 1997 COVID-19 Vaccine (3 - Moderna risk series) 04/19/2021 03/22/2021, 02/21/2021 Zoster Vaccines (2 of 2) 02/03/2023 12/09/2022, 11/2011 CKD PHOS USE SMARTSET 09135 06/15/2024 06/15/2023 Colonoscopy 06/29/2024 06/29/2023, 06/16, 03/16/2023, Additional history exists Colorectal Cancer Screening 06/29/2024 Influenza Vaccine (FLU shot) (#1) 2024 08/03/2023, 08/08/2022 HbA1c 09/29/2024 03/29/2024, 1211/2022, 06/15/2023 Depression Screening 09/30/2024 09/30/2023 GFR 12/08/2024 06/07/2024, 05/16, 05/09/2024, Additional history exists Diabetic Eye Exam 01/20/2025 01/21/2024, , 05/26/2022 Diabetic Foot Exam 04/12/2025 04/12/2024, 04/12/2024 Albumin/Creatinine Ratio 05/09/2025 024, 06/15/2023, 06/03/2022 CKD HGB USE SMARTSET 06735 06/07/202506/07, 06/07/2024, 05/30/2024, Additional history exists DTaP,Tdap,and [...] this encounter Medical Devices Implanted Type Area Expanded Function Dental Assistant Device Identifier Shelf Expiration Date Model / Serial / Lot Sureclip 16mm 235cm - [id number] Implanted:Qty: 1 on 03/16/2023 by Irving Iyer MD at OR [facility] MICRO TECH ENDOSCOPY [id number] 05/19/2025 [id number] / / [id number] Duraclip 16mm Xlg Repostn - [id number] Implanted:Qty: 1 on 03/16/2023 by Irving Iyer MD at OR [facility] [employer] [id number] 05/18/2024 [id number] / / [id number] Duraclip 16mm Xlg Repostn - [id number] Implanted:Qty: 1 on 03/16/2023 by Irving Iyer MD at OR [facility] [employer] [id number] 05/18/2024 [id number] / / [id number] Duraclip 16mm Xlg Repostn - [id number] Implanted:Qty: 1 on 03/16/2023 by Irving Iyer MD at OR [facility] [employer] [id number] 05/18/2024 [id number] / / [id number] Duraclip 16mm Xlg Repostn - [id number] Implanted:Qty: 1 on 03/16/2023 by Irving Iyer MD at OR [facility] [employer] [id number] 05/18/2024 [id number] / / [id number] Duraclip 16mm Xlg Repostn - [id number] Implanted:Qty: 1 on 03/16/2023 by Irving Iyer MD at OR [facility] [employer] [id number] 05/18/2024 [id number] / / [id number] Duraclip 16mm Xlg Repostn - [id number] Implanted:Qty: 1 on 03/16/2023 by Irving Iyer MD at OR [facility] [employer] [id number] 05/19/2024 [id number] / / [id number] Duraclip 16mm Xlg Repostn - [id number] Implanted:Qty: 1 on 03/16/2023 by Irving Iyer MD at OR [facility] [employer] [id number] 05/19/2024 [id number] / / [id number] Duraclip 16mm Xlg Repostn - [id number] Implanted:Qty: 1 on 03/16/2023 by Irving Iyer MD at OR [facility] [employer] [id number] 05/19/2024 [id number] / / [id number] Duraclip 16mm Xlg Repostn - [id number] Implanted:Qty: 1 on 03/16/2023 by Irving Iyer MD at OR [facility] [employer] [id number] 05/18/2024 [id number] / / [id number] Duraclip 16mm Xlg Repostn - [id number] Implanted:Qty: 1 on 03/16/2023 by Irving Iyer MD at OR [facility] [employer] [id number] 05/18/2024 [id number] / / [id number] Duraclip 16mm Xlg Repostn - [id number] Implanted:Qty: 1 on 03/16/2023 by Irving Iyer MD at OR [facility] [employer] [id number] 05/18/2024 [id number] / / [id number] Duraclip 16mm Xlg Repostn - [id number] Implanted:Qty: 1 on 03/16/2023 by Irving Iyer MD at OR [facility] [employer] [id number] 05/18/2024 [id number] / / [id number] Duraclip 16mm Xlg Repostn - [id number] Implanted:Qty: 1 on 03/16/2023 by Irving Iyer MD at OR [facility] [employer] [id number] 05/18/2024 [id number] / / [id number] documented as of this encounter Care Teams Swimming Instructor Relationship Specialty Start Date End Date Jean Claude Yao DO [address] [place] [address] PCP - General Internal Medicine 05/09/24 documented as of this encounter
--- OUTSIDE RECORDS SUMMARY | 2024-07-27 10:45 | External Medical Summary | Summary of Care ---
Author Name Unknown Organization [facility] Address [address] [place] [address] Phone [phone] Care Team Providers Care Combat Rifle Crewmember Name Role Phone Jean Claude Yao DO Primary Care Provider Reason for Visit * Reason Comments Outpatient Testing Encounter Details Date Type Department Care Team (Late st Contact Info) Description 06/20/2024 8:30 AM EDT Laboratory Laboratory [facility] [place] [address] [place] [address] [facility] 200 [facility] [place] [address] Multiple myeloma not having achieved remission (HCC) [...] Description 06/20/2024 9:30 AM EDT Hem/Onc Treatment Hematology/Oncology Treatment, [place] 200 [facility] [place] [phone] Laure, Chair 7 Hem Onc [place] [address] [place] [address] Arrived 06/22/2024 9:00 AM EDT Pharmacy Pharmacy Hematology Oncology [place] [address] [place] [address] [facility], [facility] Hem/Onc [address] [place] [address] 06/23/2024 1:45 PM EDT Immunization/Injec tion Hematology/Oncology Treatment, [place] 200 [facility] [place] [phone] Laure, Chair 1 Hem Onc [facility] [place] [address] 06/29/2024 9:00 AM EDT Office Visit Hematology/Oncology Kelli Kelsey [place] [address] [place] [address] [phone] Abbey Aguiar MD [address] [place] [address] 08/23/2024 10:00 AM EDT Office Visit Family [address] 293 [facility] [place] [address] Jean Claude Yao, 293 [facility], [place] [address] 09/08/2024 2:30 PM EDT Hospital Encounter ENDO [facility], Endoscopy Room [facility] [address] [place] [phone] Irving Iyer MD [address] [place] [address] 09/08/2024 2:30 PM EDT - 09/08/2024 3:00 PM EDT Surgery ENDO [facility], Endoscopy Room [facility] [address] [place] [phone] Irving Iyer MD [address] [place] [address] COLONOSCOPY FLEXIBLE PROXIMAL DIAGNOSTIC 03/13/2025 11:00 AM EDT Office Visit [facility] [address] [place] [phone] Ruma Orellana DO [address] [place] [address] Pending Results Name Type Priority Associated Diagnoses Date /Time CBC WITH WBC DIFFERENTIAL Lab STAT Multiple myeloma not having achieved remission (HCC) 06/20/2024 8:38 AM EDT COMPREHENSIVE METABOLIC PANEL Lab STAT Multiple myeloma not having achieved remission (HCC) 06/20/2024 8:38 AM EDT CBC Lab STAT Multiple myeloma not having achieved remission (HCC) 06/20/2024 8:38 AM EDT DIFFERENTIAL, AUTOMATED Lab STAT Multiple myeloma not having achieved remission (HCC) 06/20/2024 8:38 AM EDT Scheduled Procedures Name Priority Associated Diagnoses Date/Ti me COLONOSCOPY FLEXIBLE PROXIMAL DIAGNOSTIC Recall History of colonic polyps 09/08/2024 2:30 PM EDT Health Maintenance Due Date Last Done Comments Cologuard 1997 Fecal Occult Blood Test 1997 Sigmoidoscopy 1997 COVID-19 Vaccine (3 - Moderna risk series) 04/19/2021 03/22/2021, 02/21/2021 Zoster Vaccines (2 of 2) 02/03/2023 12/09/2022, 1211/2011 CKD PHOS USE SMARTSET 04304 06/15/2024 06/15/2023 Colonoscopy 06/29/2024 06/29/2023, 06/16, 03/16/2023, Additional history exists Colorectal Cancer Screening 06/29/2024 Influenza Vaccine (FLU shot) (#1) 2024 08/03/2023, 08/08/2022 HbA1c 09/29/2024 03/29/2024, 11/2022, 06/15/2023 Depression Screening 09/30/2024 09/30/2023 GFR 12/08/2024 06/07/2024, 05/16, 05/09/2024, Additional history exists Diabetic Eye Exam 01/20/2025 01/21/2024, , 05/26/2022 Diabetic Foot Exam 04/12/2025 04/12/2024, 04/12/2024 Albumin/Creatinine Ratio 05/09/2025 024, 06/15/2023, 06/03/2022 CKD HGB USE SMARTSET 09640 06/07/202506/07, 06/07/2024, 05/30/2024, Additional history exists DTaP,Tdap,and [...] this encounter Medical Devices Implanted Type Area Supervisor Of Officials Device Identifier Shelf Expiration Date Model / Serial / Lot Sureclip 16mm 235cm - [id number] Implanted:Qty: 1 on 03/16/2023 by Irving Iyer MD at OR [facility] MICRO TECH ENDOSCOPY [id number] 05/19/2025 [id number] / / [id number] Duraclip 16mm Xlg Repostn - [id number] Implanted:Qty: 1 on 03/16/2023 by Irving Iyer MD at OR [facility] Singularu PHILLIP [id number] 05/18/2024 [id number] / / [id number] Duraclip 16mm Xlg Repostn - [id number] Implanted:Qty: 1 on 03/16/2023 by Irving Iyer MD at OR [facility] TrueSpan [id number] 05/18/2024 [id number] / / [id number] Duraclip 16mm Xlg Repostn - [id number] Implanted:Qty: 1 on 03/16/2023 by Irving Iyer MD at OR [facility] CONMED PHILLIP [id number] 05/18/2024 [id number] / / [id number] Duraclip 16mm Xlg Repostn - [id number] Implanted:Qty: 1 on 03/16/2023 by Irving Iyer MD at OR [facility] [employer] PHILLIP [id number] 05/18/2024 [id number] / / [id number] Duraclip 16mm Xlg Repostn - [id number] Implanted:Qty: 1 on 03/16/2023 by Irving Iyer MD at OR [facility] Sing[employer] PHILLIP [id number] 05/18/2024 [id number] / / [id number] Duraclip 16mm Xlg Repostn - [id number] Implanted:Qty: 1 on 03/16/2023 by Irving Iyer MD at OR [facility] CONMED PHILLIP [id number] 05/19/2024 [id number] / / [id number] Duraclip 16mm Xlg Repostn - [id number] Implanted:Qty: 1 on 03/16/2023 by Irving Iyer MD at OR [facility] CONMED PH[employer]IP [id number] 05/19/2024 [id number] / / [id number] Duraclip 16mm Xlg Repostn - [id number] Implanted:Qty: 1 on 03/16/2023 by Irving Iyer MD at OR [facility] CONMED PH[employer]IP [id number] 05/19/2024 [id number] / / [id number] Duraclip 16mm Xlg Repostn - [id number] Implanted:Qty: 1 on 03/16/2023 by Irving Iyer MD at OR [facility] CONMED PH[employer]IP [id number] 05/18/2024 [id number] / / [id number] Duraclip 16mm Xlg Repostn - [id number] Implanted:Qty: 1 on 03/16/2023 by Irving Iyer MD at OR [facility] CONMED PH[employer]IP [id number] 05/18/2024 [id number] / / [id number] Duraclip 16mm Xlg Repostn - [id number] Implanted:Qty: 1 on 03/16/2023 by Irving Iyer MD at OR [facility] CONMED PH[employer]IP [id number] 05/18/2024 [id number] / / [id number] Duraclip 16mm Xlg Repostn - [id number] Implanted:Qty: 1 on 03/16/2023 by Irving Iyer MD at OR [facility] CON[employer] PH[employer]IP [id number] 05/18/2024 [id number] / / [id number] Duraclip 16mm Xlg Repostn - [id number] Implanted:Qty: 1 on 03/16/2023 by Irving Iyer MD at OR [facility] TrueSpan [id number] 05/18/2024 [id number] / / [id number] documented as of this encounter Visit Diagnoses Diagnosis Multiple myeloma not having achieved remission (HCC) Multiple myeloma, without mention of having achieved remission History of colonic polyps Personal history of colonic polyps documented in this encounter Care Teams Combat Rifle Crewmember Relationship Specialty Start Date End Date Jean Claude Yao DO [address] [place] [address] PCP - General Internal Medicine 05/09/24 documented as of this encounter
--- OUTSIDE RECORDS SUMMARY | 2024-07-27 10:45 | External Medical Summary ---
Author Name Unknown Address Unknown Organization K09:[facility] [place] [address] Laboratory Report Ordering Provider Test Date Status CARLENE PEREZ 06/20/2024 08:38:22 Final Observation Date Value Abnormality Reference (Units ) Status WBC, Total 06/20/2024 08:38:22 2.26 Below low normal 4. 00-10.80 (K/uL) Final RBC 06/20/2024 08:38:22 2.60 4.50-5.25 (M/uL) Final Hemoglobin 06/20/2024 08:38:22 9.2 Below low normal 14 .0-16.8 (g/dL) Final HCT 06/20/2024 08:38:22 27.9 Below low normal 40. 0-48.4 (%) Final MCV 06/20/2024 08:38:22 107.3 82.0-99.5 (fL) Final MCH 06/20/2024 08:38:22 35.4 27.0-34.0 (pg) Final MCHC 06/20/2024 08:38:22 33.0 32.0-36.0 (g/dL) Final RDW 06/20/2024 08:38:22 14.2 11.5-15.5 (%) Final Platelets 06/20/2024 08:38:22 93 Below low normal 140 -400 (K/uL) Final MPV 06/20/2024 08:38:22 10.6 6.6-11.1 ( fL) Final Performing Location [facility] [place] [address]
--- OUTSIDE RECORDS SUMMARY | 2024-07-27 10:45 | External Medical Summary | Summary of Care ---
Author Name Unknown Organization [facility] Address [address] [place] [address] Phone [phone] Care Team Providers Care Software Test Specialist Name Role Phone Jean Claude Yao DO Primary Care Provider [phone] Reason for Referral * Evaluate & Treat - Unlimited Visits (Within 10 days (routine)) - Authorized Specialty Diagnoses / Procedures Referred By Contac t Referred To Contact Pharmacist / Pharmacy Diagnoses Type 2 diabetes mellitus with hemoglobin A1c goal of less than 8.0% (HCC) senior living systemic steroid user Abbey Aguiar MD [address] [place] [address] Referral ID Status Reason Start Date Expiration Date Visits Requested Visits Authorized [id number] Authorized Specialty Services Required 06/13/2024 12/10/2024 99 99 Question Answer Referral Priority Within 10 days (routine) Where should this appointment be scheduled? [facility] Referring Provider Role: Specialist Specialty: [...] have his medication therapy managed by the [facility] Medication Therapy Disease Management Clinic ([facility]) per established policies, procedures, and protocols. I also certify that this referral may serve as an initiation of service for the management of drug therapy in the above noted patient. [facility] providers will be responsible for scheduling patient visits, obtaining appropriate laboratory studies, and adjusting medication management therapy per patient's need, in addition to those roles spelled out in the clinic policy, procedures, and drug management protocols. I understand that the service provided by the [facility] Clinic is voluntary and have informed patient that they can refuse the service at their discretion. I am aware that the [facility] Clinic will provide me with a copy of the patient encounter via my [employer]. I authorize the [facility] Clinic to carry out these activities on my behalf. I consider this program to be a necessary part of the patient's medical care. Kiran Nova RN Reason for Visit * Reason Onset Date Comments Precert Future 06/02/2024 DaraVRd Encounter Details Date Type Department Care Team (Late st Contact Info) Description 06/02/2024 Telephone Hematology/Oncology [facility] [place] [address] [facility] [place] [phone] Abbey Aguiar MD [address] [place] [address] Precert Future (DaraVRd ) Allergies No known active allergiesdocumented as of [...] were scheduled * Telephone Encounter - Kiran Nova RN - 06/13/2024 4:18 PM EDT Please schedule lab appointment on 06/20 at 8:30am "CBCD,CMP" * Telephone Encounter - Brisa Childs OSA - 06/13/2024 11:29 AM EDT Apt is scheduled and pt is aware * Telephone Encounter - Kiran Nova RN - 06/13/2024 11:20 AM EDT Spoke with patient, he is ok with having labs the same day as treatment. Scheduling- please schedule the following next week: - Labs 1 hour prior to treatment at [facility] "CBCD,CMP" - 4 hour treatment "Misty/Velcade C1,D1" (Stefania). This will need to be either Thursday or Thursday. - 15 min injection apt "Velcade C1,D4" 3 days after previous appointment. * Addendum Note - Kiran Nova RN - 06/13/2024 11:04 AM EDTAddended by: KIRAN NOVA on: 06/13/2024 11:04 AM Modules accepted: Orders * Telephone Encounter - Kiran Nova RN - 06/13/2024 11:03 AM EDT Tried calling patient to see if he would like to have his labs done the day prior or the day of histreatment. No answer, LMOM with return #. If patient chooses day prior he can be scheduled any day but Thursday. * Telephone Encounter - Kiran Nova RN - 06/13/2024 10:47 AM EDT Called [...] be provided. * Telephone Encounter - Kiran Nova RN - 06/13/2024 10:19 AM EDT Referral [...] off). Thanks! * Telephone Encounter - Kiran Nova RN - 06/02/2024 2:50 PM EDT Orders received, beacon plan built and routed. Awaiting auth. -Chemo Consent: 06/01/24 -Chemo Education: 06/03/24 -Port Placement: N/A -Standing Lab orders placed: Weekly CBCD,CMP , Monthly SPEP, [place], IgG Pt will need T&S completed at [facility] prior to starting Darzalex -Medications Pended: None, already prescribed Dexamethasone, Acyclovir, and Aspirin -Hep B Labs: Completed 05/21/23 documented in this encounter Plan of Treatment Upcoming Encounters Date Type Department Care Team (Latest Contact Info) Description 06/20/2024 8:30 AM EDT Laboratory Laboratory [facility] [place] [address] [place] [phone] Laure, Lab [address] [facility] [place] [address] 06/20/2024 9:30 AM EDT Hem/Onc Treatment Hematology/Oncolog [address], [address] [phone] Laure, Chair 7 Hem Onc [address] [place] [address] 06/22/2024 9:00 AM EDT Pharmacy Pharmacy Hematology Oncology [facility] [address] [place] [address] [facility], [facility] Hem/Onc [address] [place] [address] 06/23/2024 1:45 PM EDT Immunization/Inject ion Hematology/Oncolog y Treatment, [address] [phone] Laure, Chair 1 Hem Onc [facility] [place] [address] 06/29/2024 9:00 AM EDT Office Visit Hematology/Oncolog y [facility] [address] [place] [address] Abbey Aguiar MD [address] [place] [address] 08/23/2024 10:00 AM EDT Office Visit [address] 293 [place] [address] Jean Claude Yao, 293 [facility], [place] [address] 09/08/2024 2:30 PM EDT Hospital Encounter ENDO [facility], Endoscopy Room O[facility] [address] [place] [phone] Irving Iyer MD [address] [place] [address] 09/08/2024 2:30 PM EDT - 09/08/2024 3:00 PM EDT Surgery ENDO [facility], Endoscopy Room [facility] [address] [place] [phone] Irving Iyer MD [address] [place] [address] COLONOSCOPY FLEXIBLE PROXIMAL DIAGNOSTIC 03/13/2025 11:00 AM EDT Office Visit [facility] Disorders [facility] [address] [place] [phone] Ruma Orellana DO [address] [place] [address] Scheduled Orders Name Type Priority Associated Diagnoses [...] A1c goal of less than 8.0% (HCC) termite treater systemic steroid user Ordered: 06/13/2024 Health Maintenance Due Date Last Done Comments Cologuard 1997 Fecal Occult Blood Test 1997 Sigmoidoscopy 1997 COVID-19 Vaccine (3 - Moderna risk series) 04/19/2021 03/22/2021, 02/21/2021 Zoster Vaccines (2 of 2) 02/03/2023 12/09/2022, 11/2011 CKD PHOS USE SMARTSET 279[address] 06/15/2024 06/15/2023 Colonoscopy 06/29/2024 06/29/2023, 06/16, 03/16/2023, Additional history exists Colorectal Cancer Screening 06/29/2024 Influenza Vaccine (FLU shot) (#1) 2024 08/03/2023, 08/08/2022 HbA1c 09/29/2024 03/29/2024, 11/2022, 06/15/2023 Depression Screening 09/30/2024 09/30/2023 GFR 12/08/2024 06/07/2024, 05/16, 05/09/2024, Additional history exists Diabetic Eye Exam 01/20/2025 01/21/2024, , 05/26/2022 Diabetic Foot Exam 04/12/2025 04/12/2024, 04/12/2024 Albumin/Creatinine Ratio 05/09/2025 024, 06/15/2023, 06/03/2022 CKD HGB USE SMARTSET 48691 06/07/202506/07, 06/07/2024, 05/30/2024, Additional history exists DTaP,Tdap,and [...] this encounter Medical Devices Implanted Type Area Leather Scraper Device Identifier Shelf Expiration Date Model / Serial / Lot Sureclip 16mm 235cm - [id number] Implanted:Qty: 1 on 03/16/2023 by Irving Iyer MD at OR [facility] MICRO TECH ENDOSCOPY [id number] 05/19/2025 [id number] / / [id number] Duraclip 16mm Xlg Repostn - [id number] Implanted:Qty: 1 on 03/16/2023 by Irving Iyer MD at OR [facility] Beddit PHILLIP [id number] 05/18/2024 [id number] / / [id number] Duraclip 16mm Xlg Repostn - [id number] Implanted:Qty: 1 on 03/16/2023 by Irving Iyer MD at OR [facility] [employer] PHILLIP [id number] 05/18/2024 [id number] / / [id number] Duraclip 16mm Xlg Repostn - [id number] Implanted:Qty: 1 on 03/16/2023 by Ivring Iyer MD at OR [facility] CONMED PHILLIP [id number] 05/18/2024 [id number] / / [id number] Duraclip 16mm Xlg Repostn - [id number] Implanted:Qty: 1 on 03/16/2023 by Irving Iyer MD at OR [facility] CONMED PHILLIP [id number] 05/18/2024 [id number] / / [id number] Duraclip 16mm Xlg Repostn - [id number] Implanted:Qty: 1 on 03/16/2023 by Irving Iyer MD at OR [facility] CONMED PHILLIP [id number] 05/18/2024 [id number] / / [id number] Duraclip 16mm Xlg Repostn - [id number] Implanted:Qty: 1 on 03/16/2023 by Irving Iyer MD at OR [facility] CONMED PHILLIP [id number] 05/19/2024 [id number] / / [id number] Duraclip 16mm Xlg Repostn - [id number] Implanted:Qty: 1 on 03/16/2023 by Irving Iyer MD at OR [facility] CONMED PHILLIP [id number] 05/19/2024 [id number] / / [id number] Duraclip 16mm Xlg Repostn - [id number] Implanted:Qty: 1 on 03/16/2023 by Irving Iyer MD at OR [facility] CONMED PHILLIP [id number] 05/19/2024 [id number] / / [id number] Duraclip 16mm Xlg Repostn - [id number] Implanted:Qty: 1 on 03/16/2023 by Irving Iyer MD at OR [facility] CONMED PHILLIP [id number] 05/18/2024 [id number] / / [id number] Duraclip 16mm Xlg Repostn - [id number] Implanted:Qty: 1 on 03/16/2023 by Irving Iyer MD at OR [facility] CONMED PHILLIP [id number] 05/18/2024 [id number] / / [id number] Duraclip 16mm Xlg Repostn - [id number] Implanted:Qty: 1 on 03/16/2023 by Irving Iyer MD at OR [facility] CONMED PHILLIP [id number] 05/18/2024 [id number] / / [id number] Duraclip 16mm Xlg Repostn - [id number] Implanted:Qty: 1 on 03/16/2023 by Irving Iyer MD at OR [facility] CONMED PHILLIP [id number] 05/18/2024 [id number] / / [id number] Duraclip 16mm Xlg Repostn - [id number] Implanted:Qty: 1 on 03/16/2023 by Irving Iyer MD at OR [facility] CONMED PHILLIP [id number] 05/18/2024 [id number] / / [id number] documented as of this encounter Results * (ABNORMAL) IMMUNOGLOBULIN QUANTITATIVE (06/07/2024 10:36 AM EDT) [facility] IgG 3,394(H) 700 - 1,600 mg/dL 06/07/2024 8:46 PM EDT LABORATORY GM IgA 30(L) 70 - 400 mg/dL 06/07/2024 8:46 PM EDT LABORATORY [facility] IgM 13(L) 40 - 230 mg/dL 06/07/2024 8:46 PM EDT LABORATORY [facility] Blood Venous blood specimen / Unknown Venipuncture / Unknown 06/07/2024 10:36 AM EDT 06/07/2024 10:36 AM EDT Abbey Aguiar MD LAB BLOOD ORDERA BLES LABORATORY [facility] [address] [place] [address] * (ABNORMAL) SERUM PROTEIN ELECTROPHORESIS REFLEX PROFILE (06/07/2024 10:36 AM EDT) Pathologist [facility] Normal/Abnormal Abnormal(A) Normal 06/08/20 3:53 PM [...] IgG lambda. 06/08/2024 3:53 PM EDT LABORATORY [facility] Blood Venous blood specimen / Unknown Venipuncture / Unknown 06/07/2024 10:36 AM EDT 06/07/2024 10:36 AM EDT Abbey Aguiar MD LAB BLOOD ORDERA BLES Performing Organization Address City/State/[facility] Co de Phone Number LABORATORY [facility] [address] [place] [address] * (ABNORMAL) SERUM FREE LIGHT CHAINS (06/07/2024 10:36 AM EDT) [facility] [place] Free Light Chains, Serum 8.62 3.30 - 19.40 mg/L 06/08/2024 8:49 AM EDT LABORATORY [facility] Lambda Free Light Chains, Serum 641.50(H) 5.71 - 26.30 mg/L 06/08/2024 8:49 AM EDT LABORATORY [facility] [place] Lambda Free Light Chains Ratio 0.01(L) 0.26 - 1.65 06/08/2024 8:49 AM EDT LABORATORY [facility] Blood Venous blood specimen / Unknown Venipuncture / Unknown 06/07/2024 10:36 AM EDT 06/07/2024 10:36 AM EDT Abbey Aguiar MD LAB BLOOD ORDERA BLES LABORATORY [facility] [address] [place] [address] * (ABNORMAL) COMPREHENSIVE METABOLIC PANEL (06/07/2024 10:36 AM EDT) BUN 26(H) 6 - 20 mg/dL 06/07/2024 11:03 AM EDT [address] Creatinine 1.5(H) 0.6 - 1.2 mg/dL 06/07/2024 11:03 AM EDT [address] Estimated Glomerular Filtration Rate 51(L) >=60 mL/min 06/07/2024 11:03 AM T [facility] 56 Comment:eGFR is calculated b ased on the CKD-EPI 2020 equation. Sodium 139 135 - 146 mmol/L 06/07/2024 11:03 AM T [facility] 56- Potassium 3.6 3.5 - 5.1 mmol/L 06/07/2024 11:03 AM T [facility] 56- Chloride 106 98 - 107 mmol/L 06/07/2024 11:03 AM EDT [facility] 56- CO2 22 22 - 32 mmol/L 06/07/2024 11:03 AM EDT [facility] 56- Anion Gap 11 7 - 15 mmol/L 06/07/2024 11:03 AM EDT [facility] 56- Glucose 117 70 - 120 mg/dL 06/07/2024 11:03 AM EDT [facility] 56- Albumin 3.3(L) 3.8 - 5.0 g/dL 06/07/2024 11:03 AM EDT [facility] 56- AST 11 10 - 50 U/L 06/07/2024 11:03 AM EDT [facility] 56- Alkaline Phosphatase 66 35 - 130 U/L 06/07/2024 11:03 AM EDT [facility] 56- Bilirubin, Total 0.4 <=1.2 mg/dL 06/07/2024 11:03 AM EDT [facility] 56- Calcium 8.4 8.4 - 10.2 mg/dL 06/07/2024 11:03 AM EDT [facility] 56- Protein 8.2 6.0 - 8.3 g/dL 06/07/2024 11:03 AM EDT [facility] 56- ALT 12 10 - 50 U/L 06/07/2024 11:03 AM EDT [facility] 56 Blood Venous blood specimen / Unknown Venipuncture / Unknown 06/07/2024 10:36 AM EDT 06/07/2024 10:36 AM EDT Abbey Aguiar MD LAB BLOOD ORDERA BLES [facility] [address] [place] [address] * TYPE AND SCREEN (06/06/2024) Blood Venous blood specimen / Unknown 06/06/2024 Abbey Aguiar MD LAB BLOOD BANK T EST ORDERABLES documented in this encounter Visit Diagnoses Diagnosis Type 2 diabetes mellitus with hemoglobin A1c goal of less than 8.0% (HCC)- Primary Multiple myeloma not having achieved remission (HCC) Multiple myeloma, 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
--- OUTSIDE RECORDS SUMMARY | 2024-07-27 10:45 | External Medical Summary | Summary of Care ---
Author Name Unknown Organization [facility] Address [address] [place] [facility] [place] [address] Phone [phone] Care Team Providers Care Hybrid Car Mechanic Name Role Phone Jean Claude Yao DO Primary Care Provider [phone] Reason for Visit * Reason Onset Date Comments Precert Future 06/02/2024 Gustavo Encounter Details Date Type Department Care Team (Late st Contact Info) Description 06/02/2024 Telephone Hematology/Oncology [facility] [place] [address] [facility] [place] [address] Abbey Aguiar MD [address] [facility] [place] [address] Precert Future (DaraV ) Allergies No known active allergiesdocumented as [...] encounter Miscellaneous Notes * Addendum Note - Kiran Nova RN - 06/20/2024 11:43 AM EDTAddended by: KIRAN NOVA on: 06/20/2024 11:43 AM Modules accepted: Orders * Telephone Encounter - Brisa Childs OSA [...] Labs 1 hour prior to treatment at [facility] "CBCD,CMP" - 4 hour treatment [...] 06/03/2024 2:48 PM EDT Spoke to precert/ [facility]. For darzalex to be approved, patient needs [...] orders placed: Weekly CBCD,CMP , Monthly SPEP, [place], IgG Pt will need T&S completed at [facility] prior to starting Darzalex -Medications Pended: None, already prescribed Dexamethasone, Acyclovir, and Aspirin -Hep B Labs: Completed 05/21/23 documented in this encounter Plan of Treatment Upcoming Encounters Date Type Department Care Team (Latest Contact Info) Description 06/22/2024 9:00 AM EDT Pharmacy Pharmacy Hematology Oncology [facility] [address] [place] [address] [facility] Hem/Onc [address] [place] [address] 06/23/2024 1:45 PM EDT Immunization/Injec tion Hematology/Oncology Treatment, [place] [address] [place] [address] Laure, Chair 1 Hem Onc [address] [place] [address] 06/29/2024 9:00 AM EDT Office Visit Hematology/Oncology [facility] [place] [address] [facility] [place] [phone] Abbey Aguiar MD [address] [facility] [place] [address] 08/23/2024 10:00 AM EDT Office Visit Family Practice [address] [place] [address] [address] [place] [address] Jean Claude Yao, DO [address] [facility], [place] [address] 09/08/2024 2:30 PM EDT Hospital Encounter ENDO [facility], Endoscopy Room [facility] [address] [facility] [place] [address] Irving Iyer MD [address] [place] [address] 09/08/2024 2:30 PM EDT - 09/08/2024 3:00 PM EDT Surgery ENDO [facility], Endoscopy Room [facility] [address] [place] [phone] Irving Iyer MD [address] [place] [address] COLONOSCOPY FLEXIBLE PROXIMAL DIAGNOSTIC 03/13/2025 11:00 AM EDT Office Visit Sleep Disorders Ctr [facility] [address] [place] [phone] Ruma Orellana DO [address] [facility] [place] [address] Scheduled Orders Name Type Priority Associated Diagnoses Orde r Schedule CBC WITH WBC DIFFERENTIAL Lab STAT Multiple myeloma not having achieved remission (HCC) Every Week for 52 Occurrences starting 06/02/2024 until 06/02/2025, 2 completed COMPREHENSIVE METABOLIC PANEL Lab STAT Multiple myeloma not having achieved remission (HCC) Every Week for 52 Occurrences starting 06/02/2024 until 06/02/2025, 2 completed SERUM FREE LIGHT CHAINS Lab STAT [...] 02/03/2023 12/09/2022, 1211/2011 CKD PHOS USE SMARTSET 34548 06/15/2024 06/15/2023 Colonoscopy 06/29/2024 06/29/2023, 06/16, 03/16/2023, Additional history exists Colorectal Cancer Screening 06/29/2024 Influenza Vaccine (FLU shot) (#1) 2024 08/03/2023, 08/08/2022 HbA1c 09/29/2024 03/29/2024, 11/2022, 06/15/2023 Depression Screening 09/30/2024 09/30/2023 GFR 12/21/2024 06/20/2024, 05/17, 05/30/2024, Additional history exists Diabetic Eye Exam 01/20/2025 01/21/2024, , 05/26/2022 Diabetic Foot Exam 04/12/2025 04/12/2024, 04/12/2024 Albumin/Creatinine Ratio 05/09/2025 024, 06/15/2023, 06/03/2022 CKD HGB USE SMARTSET 03714 06/20/202506/20, 06/20/2024, 06/07/2024, Additional history exists DTaP,Tdap,and [...] this encounter Medical Devices Implanted Type Area Hat Lining Blocker Device Identifier Shelf Expiration Date Model / Serial / Lot Sureclip 16mm 235cm - [id number] Implanted:Qty: 1 on 03/16/2023 by Irving Iyer MD at OR [facility] MICRO TECH ENDOSCOPY [id number] 05/19/2025 [id number] / / [id number] Duraclip 16mm Xlg Repostn - [id number] Implanted:Qty: 1 on 03/16/2023 by Irving Iyer MD at OR [facility] [employer] [id number] 05/18/2024 [id number] / / [id number] Duraclip 16mm Xlg Repostn - [id number] Implanted:Qty: 1 on 03/16/2023 by Irving Iyer MD at OR [facility] [employer] [id number] 05/18/2024 [id number] / / [id number] Duraclip 16mm Xlg Repostn - [id number] Implanted:Qty: 1 on 03/16/2023 by Irving Iyer MD at OR [facility] [employer] [id number] 05/18/2024 [id number] / / [id number] Duraclip 16mm Xlg Repostn - [id number] Implanted:Qty: 1 on 03/16/2023 by Irving Iyer MD at OR [facility] [employer] [id number] 05/18/2024 [id number] / / [id number] Duraclip 16mm Xlg Repostn - [id number] Implanted:Qty: 1 on 03/16/2023 by Irving Iyer MD at OR [facility] [employer] [id number] 05/18/2024 [id number] / / [id number] Duraclip 16mm Xlg Repostn - [id number] Implanted:Qty: 1 on 03/16/2023 by Irving Iyer MD at OR [facility] [employer] [id number] 05/19/2024 [id number] / / [id number] Duraclip 16mm Xlg Repostn - [id number] Implanted:Qty: 1 on 03/16/2023 by Irving Iyer MD at OR [facility] [employer] [id number] 05/19/2024 [id number] / / [id number] Duraclip 16mm Xlg Repostn - [id number] Implanted:Qty: 1 on 03/16/2023 by Irving Iyer MD at OR [facility] [employer] [id number] 05/19/2024 [id number] / / [id number] Duraclip 16mm Xlg Repostn - [id number] Implanted:Qty: 1 on 03/16/2023 by Irving Iyer MD at OR [facility] [employer] [id number] 05/18/2024 [id number] / / [id number] Duraclip 16mm Xlg Repostn - [id number] Implanted:Qty: 1 on 03/16/2023 by Irving Iyer MD at OR [facility] [employer] [id number] 05/18/2024 [id number] / / [id number] Duraclip 16mm Xlg Repostn - [id number] Implanted:Qty: 1 on 03/16/2023 by Irving Iyer MD at OR [facility] [employer] [id number] 05/18/2024 [id number] / / [id number] Duraclip 16mm Xlg Repostn - [id number] Implanted:Qty: 1 on 03/16/2023 by Irving Iyer MD at OR [facility] [employer] [id number] 05/18/2024 [id number] / / [id number] Duraclip 16mm Xlg Repostn - [id number] Implanted:Qty: 1 on 03/16/2023 by Irving Iyer MD at OR [facility] [employer] [id number] 05/18/2024 [id number] / / [id number] documented as of this encounter Results * (ABNORMAL) COMPREHENSIVE METABOLIC PANEL (06/20/2024 8:38 AM EDT) BUN 15 6 - 20 mg/dL 06/20/2024 9:06 AM T [address] Creatinine 1.4(H) 0.6 - 1.2 mg/dL 06/20/2024 9:06 AM EDT [address] Estimated Glomerular Filtration Rate 55(L) >=60 mL/min 06/20/2024 9:06 AM T [facility] 56- Comment:eGFR is calculated b ased on the CKD-EPI 2020 equation. Sodium 138 135 - 146 mmol/L 06/20/2024 9:06 AM T [facility]- Potassium 4.0 3.5 - 5.1 mmol/L 06/20/2024 9:06 AM EDT [facility]- Chloride 105 98 - 107 mmol/L 06/20/2024 9:06 AM EDT [facility]- CO2 24 22 - 32 mmol/L 06/20/2024 9:06 AM EDT [facility]- Anion Gap 9 7 - 15 mmol/L 06/20/2024 9:06 AM T [facility] 56- Glucose 136(H) 70 - 120 mg/dL 06/20/2024 9:06 AM T [facility] 56- Albumin 3.2(L) 3.8 - 5.0 g/dL 06/20/2024 9:06 AM EDT [facility] 56 AST 10 10 - 50 U/L 06/20/2024 9:06 AM EDT [facility] 56- Alkaline Phosphatase 75 35 - 130 U/L 06/20/2024 9:06 AM EDT [facility] 56- Bilirubin, Total 0.9 <=1.2 mg/dL 06/20/2024 9:06 AM EDT [facility]- Calcium 8.6 8.4 - 10.2 mg/dL 06/20/2024 9:06 AM EDT [facility]- Protein 8.3 6.0 - 8.3 g/dL 06/20/2024 9:06 AM EDT [facility]- ALT 14 10 - 50 U/L 06/20/2024 9:06 AM EDT [facility]- Blood Venous blood specimen / Unknown Venipuncture / Unknown 06/20/2024 8:38 AM EDT 06/20/2024 8:38 AM EDT Abbey Aguiar MD LAB BLOOD ORDERA BLES [facility] 56-[address] [place] [address] * (ABNORMAL) IMMUNOGLOBULIN QUANTITATIVE (06/07/2024 10:36 AM EDT) [facility] IgG 3,394(H) 700 - 1,600 mg/dL 06/07/2024 8:46 PM EDT LAB[facility] IgA 30(L) 70 - 400 mg/dL 06/07/2024 8:46 PM EDT [facility] IgM 13(L) 40 - 230 mg/dL 06/07/2024 8:46 PM EDT [facility] Blood Venous blood specimen / Unknown Venipuncture / Unknown 06/07/2024 10:36 AM EDT 06/07/2024 10:36 AM EDT Abbey Aguiar MD LAB BLOOD [facility] [address] [place] [address] * (ABNORMAL) SERUM PROTEIN ELECTROPHORESIS REFLEX PROFILE (06/07/2024 10:36 AM EDT) Pathologist [facility] Normal/Abnormal Abnormal(A) Normal 06/08/20 3:53 PM EDT [...] IgG lambda. 06/08/2024 3:53 PM EDT LABORATORY [facility] Blood Venous blood specimen / Unknown Venipuncture / Unknown 06/07/2024 10:36 AM EDT 06/07/2024 10:36 AM EDT Abbey Aguiar MD LAB BLOOD [facility] LABORAT[facility] [address] [place] [address] * (ABNORMAL) SERUM FREE LIGHT CHAINS (06/07/2024 10:36 AM EDT) Pathologist [facility] [place] Free Light Chains, Serum 8.62 3.30 - 19.40 mg/L 06/08/2024 8:49 AM EDT LABORATORY [facility] Lambda Free Light Chains, Serum 641.50(H) 5.71 - 26.30 mg/L 06/08/2024 8:49 AM EDT LABORATORY [facility] [place] Lambda Free Light Chains Ratio 0.01(L) 0.26 - 1.65 06/08/2024 8:49 AM EDT LABORATORY [facility] Blood Venous blood specimen / Unknown Venipuncture / Unknown 06/07/2024 10:36 AM EDT 06/07/2024 10:36 AM EDT Abbey Aguiar MD LAB BLOOD [facility] [address] [place] [address] * (ABNORMAL) COMPREHENSIVE METABOLIC PANEL (06/07/2024 10:36 AM EDT) BUN 26(H) 6 - 20 mg/dL 06/07/2024 11:03 AM EDT [address] Creatinine 1.5(H) 0.6 - 1.2 mg/dL 06/07/2024 11:03 AM EDT [address] Estimated Glomerular Filtration Rate 51(L) >=60 mL/min 06/07/2024 11:03 AM T [facility] 56 Comment:eGFR is calculated b ased on the CKD-EPI 2020 equation. Sodium 139 135 - 146 mmol/L 06/07/2024 11:03 AM T [facility] 56 Potassium 3.6 3.5 - 5.1 mmol/L 06/07/2024 11:03 AM T [facility] 56 Chloride 106 98 - 107 mmol/L 06/07/2024 11:03 AM EDT [facility] 56 CO2 22 22 - 32 mmol/L 06/07/2024 11:03 AM EDT [facility] 56 Anion Gap 11 7 - 15 mmol/L 06/07/2024 11:03 AM T [facility] 56 Glucose 117 70 - 120 mg/dL 06/07/2024 11:03 AM EDT [facility] 56 Albumin 3.3(L) 3.8 - 5.0 g/dL 06/07/2024 11:03 AM EDT [facility] 56- AST 11 10 - 50 U/L 06/07/2024 11:03 AM EDT [facility] 56- Alkaline Phosphatase 66 35 - 130 U/L 06/07/2024 11:03 AM EDT [facility] 56- Bilirubin, Total 0.4 <=1.2 mg/dL 06/07/2024 11:03 AM EDT [facility] 56- Calcium 8.4 8.4 - 10.2 mg/dL 06/07/2024 11:03 AM EDT [facility] 56-02 Protein 8.2 6.0 - 8.3 g/dL 06/07/2024 11:03 AM EDT [facility] 56- ALT 12 10 - 50 U/L 06/07/2024 11:03 AM T [facility] 56-02 Blood Venous blood specimen / Unknown Venipuncture / Unknown 06/07/2024 10:36 AM EDT 06/07/2024 10:36 AM EDT Abbey Aguiar MD LAB BLOOD [facility]A [facility]ES [facility] 56- [address] [place] [address] * TYPE AND SCREEN (06/06/2024) Blood Venous blood specimen / Unknown 06/06/2024 Abbey Aguiar MD LAB BLOOD BANK T EST ORDERABLES documented in this encounter Visit Diagnoses Diagnosis Type 2 diabetes mellitus with hemoglobin A1c goal of less than 8.0% (HCC)- Primary Multiple myeloma not having achieved remission (HCC) Multiple myeloma, without mention of having achieved remission senior care systemic steroid user History of colonic polyps Personal history of colonic polyps documented in this encounter Care Teams Hybrid Car Mechanic Relationship Specialty Start Date End Date Jean Claude Yao DO [address] [place] [address] PCP - General Internal Medicine 05/09/24 documented as of this encounter
--- OUTSIDE RECORDS SUMMARY | 2024-07-27 10:46 | External Medical Summary | Summary of Care ---
Author Name Unknown Organization [facility] Address [address] [place] [address] Phone [phone] Care Team Providers Care Avionics Mechanic Name Role Phone Jean Claude Yao DO Primary Care Provider [phone] Reason for Referral * Evaluate & Treat - Unlimited Visits (Within 10 days (routine)) - Authorized Specialty Diagnoses / Procedures Referred By Contac t Referred To Contact Pharmacist / Pharmacy Diagnoses Type 2 diabetes mellitus with hemoglobin A1c goal of less than 8.0% (HCC) shelter systemic steroid user Abbey Aguiar MD [address] [place] [address] Referral ID Status Reason Start Date Expiration Date Visits Requested Visits Authorized [id number] Authorized Specialty Services Required 06/13/2024 12/10/2024 99 99 Question Answer Referral Priority Within 10 days (routine) Where should this appointment be scheduled? [facility] Referring Provider Role: Specialist Specialty: Heme/Onc Reason [...] have his medication therapy managed by the [facility] ([facility]) per established policies, procedures, and protocols. I also certify that this referral may serve as an initiation of service for the management of drug therapy in the above noted patient. [facility] providers will be responsible for scheduling patient visits, obtaining appropriate laboratory studies, and adjusting medication management therapy per patient's need, in addition to those roles spelled out in the clinic policy, procedures, and drug management protocols. I understand that the service provided by the [facility] is voluntary and have informed patient that they can refuse the service at their discretion. I am aware that the [facility] will provide me with a copy of the patient encounter via my [employer]. I authorize the [facility] to carry out these activities on my behalf. I consider this program to be a necessary part of the patient's medical care. Kiran Nova RN Reason for Visit * Reason Onset Date Comments Precert Future 06/02/2024 Gustavo johnston Encounter Details Date Type Department Care Team (Late st Contact Info) Description 06/02/2024 Telephone Hematology/Oncology [facility] [place] [address] [facility] [place] [phone] Abbey Aguiar MD [address] [place], [place] [address] Precert Future (Gustavo johnston) Allergies No known active allergiesdocumented as of this encounter (statuses as of 06/13/2024) Medications Medication Sig Dispensed Refills Start Date [...] as of this encounter (statuses as of 06/13/2024) Active Problems Problem Noted Date Diagnosed Date [...] as of this encounter (statuses as of 06/13/2024) Resolved Problems Problem Noted Date Diagnosed Date Resolved Date Prediabetes 10/26/2023 12/31/2023 Overview: Per Prediabetes protocol Hypertensive kidney disease with stage 3a chronic kidney disease 07/02/2023 03/29/2024 Lesion of pancreas 12/09/2022 documented as of this encounter (statuses as of 06/13/2024) Immunizations Name Administration Dates Next Due COVID-19 [...] off). Thanks! * Telephone Encounter - Kiran Nova, RN - 06/02/2024 2:50 PM EDT Orders received, beacon plan built and routed. Awaiting auth. -Chemo Consent: 06/01/24 -Chemo Education: 06/03/24 -Port Placement: N/A -Standing Lab orders placed: Weekly CBCD,CMP , Monthly SPEP, [place], IgG Pt will need T&S completed at [facility] prior to starting Darzalex -Medications Pended: None, already prescribed Dexamethasone, Acyclovir, and Aspirin -Hep B Labs: Completed 05/21/23 documented in this encounter Plan of Treatment Upcoming Encounters Date Type Department Care Team (Latest Contact Info) Description 06/22/2024 9:00 AM EDT Pharmacy Pharmacy Hematology Oncology [facility] [address] [place] [address] [facility] Hem/Onc [address] [place] [address] 06/29/2024 9:00 AM EDT Office Visit Hematology/Oncology [facility] [place] [address] [place] [phone] Abbey Aguiar MD [address] [place] [address] 08/23/2024 10:00 AM EDT Office Visit Family Practice [address] [place] [address] [address] [facility], [place] [address] Jean Claude Yao, DO [address] [facility] [place] [address] 09/08/2024 2:30 PM EDT Hospital Encounter ENDO [facility], Endoscopy Room [facility] [address] [place] [phone] Irving Iyer MD [address] [place] [address] 09/08/2024 2:30 PM EDT - 09/08/2024 3:00 PM EDT Surgery ENDO [facility], Endoscopy Room [facility] [address] [place] [phone] Irving Iyer MD [address] [place] [address] COLONOSCOPY FLEXIBLE PROXIMAL DIAGNOSTIC 03/13/2025 11:00 AM EDT Office Visit Sleep Disorders Ctr [facility] [address] [place] [phone] Ruma Orellana DO [address] [place] [address] Scheduled Orders Name Type Priority Associated Diagnoses [...] A1c goal of less than 8.0% (HCC) shelter systemic steroid user Ordered: 06/13/2024 Health Maintenance Due Date Last Done Comments Cologuard 1997 Fecal Occult Blood Test 1997 Sigmoidoscopy 1997 COVID-19 Vaccine (3 - Moderna risk series) 04/19/2021 03/22/2021, 02/21/2021 Zoster Vaccines (2 of 2) 02/03/2023 12/09/2022, 1211/2011 CKD PHOS USE SMARTSET 65510 06/15/2024 06/15/2023 Colonoscopy 06/29/2024 06/29/2023, 06/16, 03/16/2023, Additional history exists Colorectal Cancer Screening 06/29/2024 Influenza Vaccine (FLU shot) (#1) 2024 08/03/2023, 08/08/2022 HbA1c 09/29/2024 03/29/2024, 11/2022, 06/15/2023 Depression Screening 09/30/2024 09/30/2023 GFR 12/08/2024 06/07/2024, 05/16, 05/09/2024, Additional history exists Diabetic Eye Exam 01/20/2025 01/21/2024, , 05/26/2022 Diabetic Foot Exam 04/12/2025 04/12/2024, 04/12/2024 Albumin/Creatinine Ratio 05/09/202505/09/2 024, 06/15/2023, 06/03/2022 CKD HGB USE SMARTSET 05747 06/07/202506/07, 06/07/2024, 05/30/2024, Additional history exists DTaP,Tdap,and [...] this encounter Medical Devices Implanted Type Area Kindergarten Teacher Device Identifier Shelf Expiration Date Model / Serial / Lot Sureclip 16mm 235cm - [id number] Implanted:Qty: 1 on 03/16/2023 by Irving Iyer MD at OR [facility] MICRO TECH ENDOSCOPY [id number] 05/19/2025 [id number] / / [id number] Duraclip 16mm Xlg Repostn - [id number] Implanted:Qty: 1 on 03/16/2023 by Irving Iyer MD at OR [email or web address] [id number] 05/18/2024 [id number] / / [id number] Duraclip 16mm Xlg Repostn - [id number] Implanted:Qty: 1 on 03/16/2023 by Irving Iyer MD at OR [facility] [employer] PHILLIP [id number] 05/18/2024 [id number] / / [id number] Duraclip 16mm Xlg Repostn - [id number] Implanted:Qty: 1 on 03/16/2023 by Irving Iyer MD at OR [email or web address] [id number] 05/18/2024 [id number] / / [id number] Duraclip 16mm Xlg Repostn - [id number] Implanted:Qty: 1 on 03/16/2023 by Irving Iyer MD at OR [facility] CONMED PHILLIP [id number] 05/18/2024 [id number] / / [id number] Duraclip 16mm Xlg Repostn - [id number] Implanted:Qty: 1 on 03/16/2023 by Irving Iyer MD at OR [facility] [id number] 05/18/2024 [id number] / / [id number] Duraclip 16mm Xlg Repostn - [id number] Implanted:Qty: 1 on 03/16/2023 by Irving Iyer MD at OR [facility] [id number] 05/19/2024 [id number] / / [id number] Duraclip 16mm Xlg Repostn - [id number] Implanted:Qty: 1 on 03/16/2023 by Irving Iyer MD at OR [facility] [id number] 05/19/2024 [id number] / / [id number] Duraclip 16mm Xlg Repostn - [id number] Implanted:Qty: 1 on 03/16/2023 by Irving Iyer MD at OR [facility] [id number] 05/19/2024 [id number] / / [id number] Duraclip 16mm Xlg Repostn - [id number] Implanted:Qty: 1 on 03/16/2023 by Irving Iyer MD at OR [facility] [id number] 05/18/2024 [id number] / / [id number] Duraclip 16mm Xlg Repostn - [id number] Implanted:Qty: 1 on 03/16/2023 by Irving Iyer MD at OR [facility] [id number] 05/18/2024 [id number] / / [id number] Duraclip 16mm Xlg Repostn - [id number] Implanted:Qty: 1 on 03/16/2023 by Irving Iyer MD at OR [facility] [id number] 05/18/2024 [id number] / / [id number] Duraclip 16mm Xlg Repostn - [id number] Implanted:Qty: 1 on 03/16/2023 by Irving Iyer MD at OR [facility] [id number] 05/18/2024 [id number] / / [id number] Duraclip 16mm Xlg Repostn - [id number] Implanted:Qty: 1 on 03/16/2023 by Irving Iyer MD at OR [facility] [id number] 05/18/2024 [id number] / / [id number] documented as of this encounter Results * (ABNORMAL) IMMUNOGLOBULIN QUANTITATIVE (06/07/2024 10:36 AM EDT) [facility] IgG 3,394(H) 700 - 1,600 mg/dL [...] LAB BLOOD ORDERA BLES Performing Organization Address City/State/[facility] Co de Phone Number LABORATORY [facility] [address] [place] [address] * (ABNORMAL) SERUM PROTEIN ELECTROPHORESIS REFLEX PROFILE (06/07/2024 10:36 AM EDT) [facility] Normal/Abnormal Abnormal(A) Normal 06/08/20 3:53 PM EDT [...] IgG lambda. 06/08/2024 3:53 PM EDT LABORATORY [facility] Blood Venous blood specimen / Unknown Venipuncture / Unknown 06/07/2024 10:36 AM EDT 06/07/2024 10:36 AM EDT Abbey Aguiar MD LAB BLOOD ORDERA BLES LABORATORY [facility] [address] [place] [address] * (ABNORMAL) SERUM FREE LIGHT CHAINS (06/07/2024 10:36 AM EDT) Pathologist [facility] [place] Free Light Chains, Serum 8.62 3.30 - 19.40 mg/L 06/08/2024 8:49 AM EDT LABORATORY [facility] Lambda Free Light Chains, Serum 641.50(H) 5.71 - 26.30 mg/L 06/08/2024 8:49 AM EDT LABORATORY [facility] [place] Lambda Free Light Chains Ratio 0.01(L) 0.26 - 1.65 06/08/2024 8:49 AM EDT LABORATORY [facility] Blood Venous blood specimen / Unknown Venipuncture / Unknown 06/07/2024 10:36 AM EDT 06/07/2024 10:36 AM EDT Abbey Aguiar MD LAB BLOOD ORDERA BLES LABORATORY [facility] [address] [place] [address] * (ABNORMAL) COMPREHENSIVE METABOLIC PANEL (06/07/2024 10:36 AM EDT) BUN 26(H) 6 - 20 mg/dL 06/07/2024 11:03 AM EDT [address] Creatinine 1.5(H) 0.6 - 1.2 mg/dL 06/07/2024 11:03 AM EDT [address] Estimated Glomerular Filtration Rate 51(L) >=60 mL/min 06/07/2024 11:03 AM T [facility] 56 Comment:eGFR is calculated b ased on the CKD-EPI 2020 equation. Sodium 139 135 - 146 mmol/L 06/07/2024 11:03 AM T [facility] 56 Potassium 3.6 3.5 - 5.1 mmol/L 06/07/2024 11:03 AM T [facility] 56 Chloride 106 98 - 107 mmol/L 06/07/2024 11:03 AM EDT [address] CO2 22 22 - 32 mmol/L 06/07/2024 11:03 AM T [facility] 56 Anion Gap 11 7 - 15 mmol/L 06/07/2024 11:03 AM T [facility] 56 Glucose 117 70 - 120 mg/dL 06/07/2024 11:03 AM T [facility] 56 Albumin 3.3(L) 3.8 - 5.0 g/dL 06/07/2024 11:03 AM EDT [facility] 56 AST 11 10 - 50 U/L 06/07/2024 11:03 AM EDT [facility] 56 Alkaline Phosphatase 66 35 - 130 U/L 06/07/2024 11:03 AM T [facility] 56 Bilirubin, Total 0.4 <=1.2 mg/dL 06/07/2024 11:03 AM EDT [facility] 56 Calcium 8.4 8.4 - 10.2 mg/dL 06/07/2024 11:03 AM T [facility] 56- Protein 8.2 6.0 - 8.3 g/dL 06/07/2024 11:03 AM EDT [facility] 56- ALT 12 10 - 50 U/L 06/07/2024 11:03 AM EDT [facility] 56 Blood Venous blood specimen / Unknown Venipuncture / Unknown 06/07/2024 10:36 AM EDT 06/07/2024 10:36 AM EDT Abbey Aguiar MD LAB BLOOD ORDERA BLES [facility] [address] [facility] [place] [address] * TYPE AND SCREEN (06/06/2024) Blood Venous blood specimen / Unknown 06/06/2024 Abbey Aguiar MD LAB BLOOD BANK T EST ORDERABLES documented in this encounter Visit Diagnoses Diagnosis Type 2 diabetes mellitus with hemoglobin A1c goal of less than 8.0% (HCC)- Primary Multiple myeloma not having achieved remission (HCC) Multiple myeloma, without mention of having achieved remission intermediate teacher systemic steroid user History of colonic polyps Personal history of colonic polyps documented in this encounter Care Teams Avionics Mechanic Relationship Specialty Start Date End Date Jean Claude Yao DO [address] [facility] [place] [address] PCP - General Internal Medicine 05/09/24 documented as of this encounter
--- OUTSIDE RECORDS SUMMARY | 2024-07-27 10:46 | External Medical Summary | Summary of Care ---
Author Name Unknown Organization [facility] Address [address] [place] [address] Phone [phone] Care Team Providers Care Precision Lens Polisher Name Role Phone Jean Claude Yao DO Primary Care Provider Reason for Referral * Evaluate & Treat - Unlimited Visits (Within 10 days (routine)) - Authorized Specialty Diagnoses / Procedures Referred By Contac t Referred To Contact Pharmacist / Pharmacy Diagnoses Type 2 diabetes mellitus with hemoglobin A1c goal of less than 8.0% (HCC) retirement systemic steroid user Abbey Aguiar MD [address] [place] [address] Referral ID Status Reason Start Date Expiration Date Visits Requested Visits Authorized [id number] Authorized Specialty Services Required 06/13/2024 12/10/2024 99 99 Question Answer Referral Priority Within 10 days (routine) Where should this appointment be scheduled? [facility] Referring Provider Role: Specialist Specialty: Heme/Onc Reason [...] have his medication therapy managed by the [facility] Medication Therapy Disease Management [facility] ([facility]) per established policies, procedures, and protocols. I also certify that this referral may serve as an initiation of service for the management of drug therapy in the above noted patient. [facility] providers will be responsible for scheduling patient visits, obtaining appropriate laboratory studies, and adjusting medication management therapy per patient's need, in addition to those roles spelled out in the clinic policy, procedures, and drug management protocols. I understand that the service provided by the [facility] Clinic is voluntary and have informed patient that they can refuse the service at their discretion. I am aware that the [facility] will provide me with a copy of the patient encounter via my [employer]sket. I authorize the [facility] to carry out these activities on my behalf. I consider this program to be a necessary part of the patient's medical care. Kiran Nova RN Reason for Visit * Reason Onset Date Comments Precert Future 06/02/2024 Gustavo johnston Encounter Details Date Type Department Care Team (Late st Contact Info) Description 06/02/2024 Telephone Hematology/Oncology Kelli Kelsey [place] 200 [facility] [place] [address] Abbey Aguiar MD [address] [place], [place] [address] Precert Future (Gustavo johnston) Allergies No known [...] Labs 1 hour prior to treatment at [facility] "CBCD,CMP" - 4 hour treatment [...] orders placed: Weekly CBCD,CMP , Monthly SPEP, [place], IgG Pt will need T&S completed at [facility] prior to starting Darzalex -Medications Pended: None, already prescribed Dexamethasone, Acyclovir, and Aspirin -Hep B Labs: Completed 05/21/23 documented in this encounter Plan of Treatment Upcoming Encounters Date Type Department Care Team (Latest Contact Info) Description 06/20/2024 8:30 AM EDT Laboratory Laboratory Kelli Kelsey [place] [address] [place] [id number] Laure, Lab [facility] [address] [facility] [place] [address] 06/20/2024 9:30 AM EDT Hem/Onc Treatment Hematology/Oncolog y Treatment, [place] 200 [facility] [place] [phone] Laure, Chair 7 Hem Onc [facility] [address] [place] [address] 06/22/2024 9:00 AM EDT Pharmacy Pharmacy Hematology Oncology [address] [address] [facility] Hem/Onc [facility] [address] 06/23/2024 1:30 PM EDT Immunization/Inject ion Hematology/Oncolog y Treatment, [place] [facility] [phone] 06/29/2024 9:00 AM EDT Office Visit Hematology/Oncolog y [facility] Laure [place] [address] [place] [address] Abbey Aguiar MD 200 [facility] [place] [address] 08/23/2024 10:00 AM EDT Office Visit Family Practice [address], [place] 293 [place] [address] Jean Claude Yao DO 293 [facility], [place] [address] 09/08/2024 2:30 PM EDT Hospital Encounter ENDO [facility], Endoscopy Room [facility] [address] [place] [address] Irving Iyer MD [address] [place] [address] 09/08/2024 2:30 PM EDT - 09/08/2024 3:00 PM EDT Surgery ENDO [facility], Endoscopy Room [facility] [address] [place] [address] Irving Iyer MD [address] [place] [address] COLONOSCOPY FLEXIBLE PROXIMAL DIAGNOSTIC 03/13/2025 11:00 AM EDT Office Visit Sleep Disorders Ctr [facility] [address] [place] [phone] Ruma Orellana DO [address] [place] [address] Scheduled Orders Name Type Priority Associated Diagnoses [...] A1c goal of less than 8.0% (HCC) retirement systemic steroid user Ordered: 06/13/2024 Health Maintenance Due Date Last Done Comments Cologuard 1997 Fecal Occult Blood Test 1997 Sigmoidoscopy 1997 COVID-19 Vaccine (3 - Moderna risk series) 04/19/2021 03/22/2021, 02/21/2021 Zoster Vaccines (2 of 2) 02/03/2023 12/09/2022, 1211/2011 CKD PHOS USE SMARTSET 08351 06/15/2024 06/15/2023 Colonoscopy 06/29/2024 06/29/2023, 06/16, 03/16/2023, Additional history exists Colorectal Cancer Screening 06/29/2024 Influenza Vaccine (FLU shot) (#1) 2024 08/03/2023, 08/08/2022 HbA1c 09/29/2024 03/29/2024, 11/2022, 06/15/2023 Depression Screening 09/30/2024 09/30/2023 GFR 12/08/2024 06/07/2024, 05/16, 05/09/2024, Additional history exists Diabetic Eye Exam 01/20/2025 01/21/2024, , 05/26/2022 Diabetic Foot Exam 04/12/2025 04/12/2024, 04/12/2024 Albumin/Creatinine Ratio 05/09/2025 024, 06/15/2023, 06/03/2022 CKD HGB USE SMARTSET 56476 06/07/202506/07, 06/07/2024, 05/30/2024, Additional history exists DTaP,Tdap,and [...] this encounter Medical Devices Implanted Type Area Changeover Operator Device Identifier Shelf Expiration Date Model / Serial / Lot Sureclip 16mm 235cm - [id number] Implanted:Qty: 1 on 03/16/2023 by Irving Iyer MD at OR [facility] MICRO TECH ENDOSCOPY [id number] 05/19/2025 [id number] / / [id number] Duraclip 16mm Xlg Repostn - [id number] Implanted:Qty: 1 on 03/16/2023 by Irving Iyer MD at OR [facility] [employer] [id number] 05/18/2024 [id number] / / [id number] Duraclip 16mm Xlg Repostn - [id number] Implanted:Qty: 1 on 03/16/2023 by Irving Iyer MD at OR [facility] [employer] [id number] 05/18/2024 [id number] / / [id number] Duraclip 16mm Xlg Repostn - [id number] Implanted:Qty: 1 on 03/16/2023 by Irving Iyer MD at OR [facility] [employer] [id number] 05/18/2024 [id number] / / [id number] Duraclip 16mm Xlg Repostn - [id number] Implanted:Qty: 1 on 03/16/2023 by Irving Iyer MD at OR [facility] [employer] [id number] 05/18/2024 [id number] / / [id number] Duraclip 16mm Xlg Repostn - [id number] Implanted:Qty: 1 on 03/16/2023 by Irving Iyer MD at OR [facility] [employer] [id number] 05/18/2024 [id number] / / [id number] Duraclip 16mm Xlg Repostn - [id number] Implanted:Qty: 1 on 03/16/2023 by Irving Iyer MD at OR [facility] [employer] [id number] 05/19/2024 [id number] / / [id number] Duraclip 16mm Xlg Repostn - [id number] Implanted:Qty: 1 on 03/16/2023 by Irving Iyer MD at OR [facility] [employer] [id number] 05/19/2024 [id number] / / [id number] Duraclip 16mm Xlg Repostn - [id number] Implanted:Qty: 1 on 03/16/2023 by Irving Iyer MD at OR [facility] [employer] [id number] 05/19/2024 [id number] / / [id number] Duraclip 16mm Xlg Repostn - [id number] Implanted:Qty: 1 on 03/16/2023 by Irving Iyer MD at OR [facility] [employer] [id number] 05/18/2024 [id number] / / [id number] Duraclip 16mm Xlg Repostn - [id number] Implanted:Qty: 1 on 03/16/2023 by Irving Iyer MD at OR [facility] [employer] [id number] 05/18/2024 [id number] / / [id number] Duraclip 16mm Xlg Repostn - [id number] Implanted:Qty: 1 on 03/16/2023 by Irving Iyer MD at OR [facility] [employer] [id number] 05/18/2024 [id number] / / [id number] Duraclip 16mm Xlg Repostn - [id number] Implanted:Qty: 1 on 03/16/2023 by Irving Iyer MD at OR [facility] [employer] [id number] 05/18/2024 [id number] / / [id number] Duraclip 16mm Xlg Repostn - [id number] Implanted:Qty: 1 on 03/16/2023 by Irving Iyer MD at OR [facility] Evoz [facility] [id number] 05/18/2024 [id number] / / [id number] documented as of this encounter Results * (ABNORMAL) IMMUNOGLOBULIN QUANTITATIVE (06/07/2024 10:36 AM EDT) Pathologist [facility] IgG 3,394(H) 700 - 1,600 mg/dL 06/07/2024 8:46 PM EDT LAB[facility]ATORY [facility] IgA 30(L) 70 - 400 mg/dL 06/07/2024 8:46 PM EDT LAB[facility] IgM 13(L) 40 - 230 mg/dL 06/07/2024 8:46 PM EDT LAB[facility]ATORY [facility] Blood Venous blood specimen / Unknown Venipuncture / Unknown 06/07/2024 10:36 AM EDT 06/07/2024 10:36 AM EDT Abbey Aguiar MD LAB BLOOD ORDERA BLES LABORATORY [facility] [address] [place] [address] * (ABNORMAL) SERUM PROTEIN ELECTROPHORESIS REFLEX PROFILE (06/07/2024 10:36 AM EDT) [facility] Normal/Abnormal Abnormal(A) Normal 06/08/20 3:53 PM [...] LAB BLOOD ORDERA BLES Performing Organization Address [facility] de Phone Number LABORATORY [place] [address] [place] [address] * (ABNORMAL) SERUM FREE LIGHT CHAINS (06/07/2024 10:36 AM EDT) [facility] [place] Free Light Chains, Serum 8.62 3.30 - 19.40 mg/L 06/08/2024 8:49 AM EDT LABORATORY [facility] Lambda Free Light Chains, Serum 641.50(H) 5.71 - 26.30 mg/L 06/08/2024 8:49 AM EDT LABORATORY [facility] [place] Lambda Free Light Chains Ratio 0.01(L) 0.26 - 1.65 06/08/2024 8:49 AM EDT LABORATORY [facility] Blood Venous blood specimen / Unknown Venipuncture / Unknown 06/07/2024 10:36 AM EDT 06/07/2024 10:36 AM EDT Abbey Aguiar MD LAB BLOOD ORDERA BLES Performing Organization Address [facility] de Phone Number LABORATORY [place] [address] [place] [address] * (ABNORMAL) COMPREHENSIVE METABOLIC PANEL (06/07/2024 10:36 AM EDT) Pathologist [facility] BUN 26(H) 6 - 20 mg/dL 06/07/2024 11:[address] Creatinine 1.5(H) 0.6 - 1.2 mg/dL 06/07/2024 11:[address] Estimated Glomerular Filtration Rate 51(L) >=60 mL/min 06/07/2024 11:03 AM [facility] 56 Comment:eGFR is calculated b ased on the CKD-EPI 2020 equation. Sodium 139 135 - 146 mmol/L 06/07/2024 11:[address] Potassium 3.6 3.5 - 5.1 mmol/L 06/07/2024 11:[address] Chloride 106 98 - 107 mmol/L 06/07/2024 11:[address] CO2 22 22 - 32 mmol/L 06/07/2024 11:[address] Anion Gap 11 7 - 15 mmol/L 06/07/2024 11:[address] Glucose 117 70 - 120 mg/dL 06/07/2024 11:[address] Albumin 3.3(L) 3.8 - 5.0 g/dL 06/07/2024 11:[address] AST 11 10 - 50 U/L 06/07/2024 11:[address] Alkaline Phosphatase 66 35 - 130 U/L 06/07/2024 11:[address] Bilirubin, Total 0.4 <=1.2 mg/dL 06/07/2024 11:[address] Calcium 8.4 8.4 - 10.2 mg/dL 06/07/2024 11:[address] Protein 8.2 6.0 - 8.3 g/dL 06/07/2024 11:03 AM [facility] 56 ALT 12 10 - 50 U/L 06/07/2024 11:03 AM [facility] 56 Blood Venous blood specimen / Unknown Venipuncture / Unknown 06/07/2024 10:36 AM EDT 06/07/2024 10:36 AM EDT Abbey Aguiar MD LAB BLOOD ORDERA BLES LABORATORY [place] [address] [place] [address] * TYPE AND SCREEN (06/06/2024) Blood Venous blood specimen / Unknown 06/06/2024 Abbey Aguiar MD LAB BLOOD BANK T EST ORDERABLES documented in this encounter Visit Diagnoses Diagnosis Type 2 diabetes mellitus with hemoglobin A1c goal of less than 8.0% (HCC)- Primary Multiple myeloma not having achieved remission (HCC) Multiple myeloma, without mention of having achieved remission termite helper systemic steroid user History of colonic polyps Personal history of colonic polyps documented in this encounter Care Teams Precision Lens Polisher Relationship Specialty Start Date End Date Jean Claude Yao DO [address] [place] [address] PCP - General Internal Medicine 05/09/24 documented as of this encounter
--- OUTSIDE RECORDS SUMMARY | 2024-07-27 10:46 | External Medical Summary | Summary of Care ---
Author Name Unknown Organization [facility] Address [address] [place] [address] Phone [phone] Care Team Providers Care Harness Placer Name Role Phone Jean Claude Yao DO Primary Care Provider [phone] Reason for Visit * Reason Comments Medication Management Encounter Details Date Type Department Care Team (Late st Contact Info) Description 06/08/2024 9:15 AM EDT Pharmacy Pharmacy Hematology Oncology [facility] [address] [place], [place] [id number] [facility] Hem/Onc [address] [place] [address] Smoldering multiple myeloma (SMM)* Allergies No known active allergiesdocumented as of this encounter (statuses as of 06/08/2024) Medications Medication Sig Dispensed Refills Start Date [...] as of this encounter (statuses as of 06/08/2024) Active Problems Problem Noted Date Diagnosed Date [...] as of this encounter (statuses as of 06/08/2024) Resolved Problems Problem Noted Date Diagnosed Date Resolved Date Prediabetes 10/26/2023 12/31/2023 Overview: Per Prediabetes protocol Hypertensive kidney disease with stage 3a chronic kidney disease 07/02/2023 03/29/2024 Lesion of pancreas 12/09/2022 documented as of this encounter (statuses as of 06/08/2024) Immunizations Name Administration Dates Next Due COVID-19 [...] this encounter Progress Notes * Alejandrina Steele, [facility] - 06/08/2024 9:45 AM EDT MEDICATION THERAPY MANAGEMENT LENALIDOMIDE TREATMENT PROGRESS NOTE Jeff Martin [phone] Patient Phone Numbers : Brenna Rosenberg Lab: [address] [place] [address] Specialty Pharmacy: [facility] Communication: Spoke to: Patient Treatment: Medication: Lenalidomide (Revlimid) 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 Aguiar Additional Therapy: Dexamethasone 20mg weekly (on Sundays) Daratumumab Bortezomib Supportive Care Meds: Ondansetron Prochlorperazine Prophylactic Meds: ASA Acyclovir Cycle Dates C1 06/07 - 06/27 C2 (DR 15mg; Delayed) 07/12 - 08/01 C3 Delayed; DR 10mg 08/23 - 09/12 C4 09/22 - 10/12 C5 delayed 11/03 - 11/23 C11 05/08 - 05/28 C12 Frequency change to 06/05 - 06/18 C13 06/26 - 07/09 (anticipated) Treatment History: None Dose adjustment / medication hold: 06/30/23-07/11/23: lenalidomide on HOLD due to cytopenias 06/2023: lenalidomide dose reduced to 15mg due to cytopenias C3 and C5 delayed due to neutropenia Interval History: Lenalidomide RX sent to pharmacy 05/27/24 Per OV 06/01/24, treatment changed to DaraVRd Per TE 06/02/24 addendum 06/06/24, daratumumab and bortezomib require [id number] for insurance approval Confirmed start date as above No concerns, tolerating therapy well Changes to medication list since last visit? No Assessment and Plan: Per discussion with TERRANCE Beck, pt advised to start current cycle of lenalidomide as planned but as a 21-day cycle (14 days on, 7 days off) and will add daratumumab and bortezomib to plan once approved Re-educated pt to continue current lenalidomide cycle but to stop after 14 days (06/18/24) Advised pt to obtain pre-cycle labs week of 06/20/24 unless daratumumab and bortezomib starts sooner.Pt repeated instructions back with understanding Will send next lenalidomide RX refill from [facility] Assessment of compliance: compliant Assessment of adverse effects attributed to drug therapy: DVT - absent Rash - absent Diarrhea/Constipation - absent Edema - absent Dose adjustment needed based on lab or adverse drug reaction? No Follow up: 06/22 Alejandrina Steele, PharmD, BCOP Clinical Pharmacist, [facility] Oral Chemotherapy [facility] 06/08/2024, 9:57 AM Monitoring Parameters: Estimated CrCl Serum creatinine: 1.5 mg/dL (H) 06/07/24 1036 Estimated creatinine clearance: 48.9 mL/min (A) Hepatitis panel Latest Reference Range [...] ANC > 1000, PLT > 30K Pertinent labs:N/A Time Spent on Encounter: 11 - 15 minutes Encounter Group: Hematology Encounter Interventions Item Category: Oral Chemotherapy Lenalidomide Problem/Rationale: Safety: Needs additional monitoring - Medication Requires monitoring Education: Clarification Pharmacist Intervention(s): Discussed patient with nursing, Education provided, and Toxicity monitoring Magnitude of Intervention: Monitoring with direction (Level 1) documented in this encounter Plan of Treatment Upcoming Encounters Date Type Department Care Team (Latest Contact Info) Description 06/13/2024 7:45 AM EDT Imaging Radiology [address] 132 [facility] [place] [address] 06/22/2024 9:00 AM EDT Pharmacy Pharmacy Hematology Oncology [facility] [address] [place] [address] [facility] Hem/Onc [address] [place] [address] 06/29/2024 9:00 AM EDT Office Visit Hematology/Oncology [facility] [address] [facility] [place] [phone] Abbey Aguiar MD [address] [facility] [place] [address] 08/23/2024 10:00 AM EDT Office Visit Family Practice [address] [place] [address] 293 [facility] [address] Jean Claude [facility]ao DO [address] [facility] [address] 09/08/2024 2:30 PM EDT Hospital Encounter ENDO [facility], Endoscopy Room [facility] [address] [place] [phone] Irving Iyer MD 132 [facility] [place] [address] 09/08/2024 2:30 PM EDT - 09/08/2024 3:00 PM EDT Surgery ENDO [facility], Endoscopy Room [facility] [address] [place] [phone] Irving Iyer MD [address] [place] [address] COLONOSCOPY FLEXIBLE PROXIMAL DIAGNOSTIC 03/13/2025 11:00 AM EDT Office Visit Sleep Disorders Ctr [facility] [address] [place] [phone] Ruma Orellana DO [address] [place] [address] Scheduled Procedures Name Priority Associated Diagnoses Date/Ti me COLONOSCOPY FLEXIBLE PROXIMAL DIAGNOSTIC Recall History of colonic polyps 09/08/2024 2:30 PM EDT Health Maintenance Due Date Last Done Comments Cologuard 1997 Fecal Occult Blood Test 1997 Sigmoidoscopy 1997 COVID-19 Vaccine (3 - Moderna risk series) 04/19/2021 03/22/2021, 02/21/2021 Zoster Vaccines (2 of 2) 02/03/2023 12/09/2022, 1211/2011 CKD PHOS USE SMARTSET 92903 06/15/2024 06/15/2023 Colonoscopy 06/29/2024 06/29/2023, 06/16, 03/16/2023, Additional history exists Colorectal Cancer Screening 06/29/2024 Influenza Vaccine (FLU shot) (#1) 2024 08/03/2023, 08/08/2022 HbA1c 09/29/2024 03/29/2024, 120 11/2022, 06/15/2023 Depression Screening 09/30/2024 09/30/2023 GFR 12/08/2024 06/07/2024, 05/16, 05/09/2024, Additional history exists Diabetic Eye Exam 01/20/2025 01/21/2024, , 05/26/2022 Diabetic Foot Exam 04/12/2025 04/12/2024, 04/12/2024 Albumin/Creatinine Ratio 05/09/202505/09/ 024, 06/15/2023, 06/03/2022 CKD HGB USE SMARTSET 36779 06/07/202506/07, 06/07/2024, 05/30/2024, Additional history exists DTaP,Tdap,and [...] this encounter Medical Devices Implanted Type Area Fur Plucker Device Identifier Shelf Expiration Date Model / Serial / Lot Sureclip 16mm 235cm - [id number] Implanted:Qty: 1 on 03/16/2023 by Irving Iyer MD at OR [facility] MICRO TECH ENDOSCOPY [id number] 05/19/2025 [id number] / / [id number] Duraclip 16mm Xlg Repostn - [id number] Implanted:Qty: 1 on 03/16/2023 by Irving Iyer MD at OR [facility] [employer] PHILLIP [id number] 05/18/2024 [id number] / / [id number] Duraclip 16mm Xlg Repostn - [id number] Implanted:Qty: 1 on 03/16/2023 by Irving Iyer MD at OR [facility] [employer]MED [employer]IP [id number] 05/18/2024 [id number] / / [id number] Duraclip 16mm Xlg Repostn - [id number] Implanted:Qty: 1 on 03/16/2023 by Irving Iyer MD at OR [facility] [employer] [id number] 05/18/2024 [id number] / / [id number] Duraclip 16mm Xlg Repostn - [id number] Implanted:Qty: 1 on 03/16/2023 by Irving Iyer MD at OR [facility] [employer] [id number] 05/18/2024 [id number] / / [id number] Duraclip 16mm Xlg Repostn - [id number] Implanted:Qty: 1 on 03/16/2023 by Irving Iyer MD at OR [facility] [employer] [id number] 05/18/2024 [id number] / / [id number] Duraclip 16mm Xlg Repostn - [id number] Implanted:Qty: 1 on 03/16/2023 by Irving Iyer MD at OR [facility] [employer] [id number] 05/19/2024 [id number] / / [id number] Duraclip 16mm Xlg Repostn - [id number] Implanted:Qty: 1 on 03/16/2023 by Irving Iyer MD at OR [facility] [employer] [id number] 05/19/2024 [id number] / / [id number] Duraclip 16mm Xlg Repostn - [id number] Implanted:Qty: 1 on 03/16/2023 by Irving Iyer MD at OR [facility] [employer] [id number] 05/19/2024 [id number] / / [id number] Duraclip 16mm Xlg Repostn - [id number] Implanted:Qty: 1 on 03/16/2023 by Irving Iyer MD at OR [facility] [employer] [id number] 05/18/2024 [id number] / / [id number] Duraclip 16mm Xlg Repostn - [id number] Implanted:Qty: 1 on 03/16/2023 by Irving Iyer MD at OR [facility] [employer] [id number] 05/18/2024 [id number] / / [id number] Duraclip 16mm Xlg Repostn - [id number] Implanted:Qty: 1 on 03/16/2023 by Irving Iyer MD at OR [facility] [employer] [id number] 05/18/2024 [id number] / / [id number] Duraclip 16mm Xlg Repostn - [id number] Implanted:Qty: 1 on 03/16/2023 by Irving Iyer MD at OR [facility] [employer] [id number] 05/18/2024 [id number] / / [id number] Duraclip 16mm Xlg Repostn - [id number] Implanted:Qty: 1 on 03/16/2023 by Irving Iyer MD at OR [facility] [employer] [id number] 05/18/2024 [id number] / / [id number] documented as of this encounter Visit Diagnoses Diagnosis Smoldering multiple myeloma (SMM)- Primary Multiple myeloma, without mention of having achieved remission History of colonic polyps Personal history of colonic polyps documented in this encounter Care Teams Harness Placer Relationship Specialty Start Date End Date Jean Claude Yao DO [address] [place] [address] PCP - General Internal Medicine 05/09/24 documented as of this encounter
--- OUTSIDE RECORDS SUMMARY | 2024-07-27 10:46 | External Medical Summary | Summary of Care ---
Author Name Unknown Organization [facility] Address [address] [facility] [place] [address] Phone [phone] Care Team Providers Care Venue Manager Name Role Phone Jean Claude Yao DO Primary Care Provider [phone] Reason for Visit * Reason Onset Date Comments Precert Future 06/02/2024 Gustavo johnston Encounter Details Date Type Department Care Team (Late st Contact Info) Description 06/02/2024 Telephone Hematology/Oncology [facility] [place] [address] [facility] [place] [address] Abbey Aguiar MD [address] [facility] [place] [address] Precert Future (Gustavo ) Allergies No known active allergiesdocumented as of this encounter (statuses as of 06/09/2024) Medications Medication Sig Dispensed Refills Start Date [...] as of this encounter (statuses as of 06/09/2024) Active Problems Problem Noted Date Diagnosed Date [...] as of this encounter (statuses as of 06/09/2024) Resolved Problems Problem Noted Date Diagnosed Date Resolved Date Prediabetes 10/26/2023 12/31/2023 Overview: Per Prediabetes protocol Hypertensive kidney disease with stage 3a chronic kidney disease 07/02/2023 03/29/2024 Lesion of pancreas 12/09/2022 documented as of this encounter (statuses as of 06/09/2024) Immunizations Name Administration Dates Next Due COVID-19 [...] encounter Miscellaneous Notes * Telephone Encounter - Carolina Mckee RN [...] off). Thanks! * Telephone Encounter - Kiran Live, RUBIA - 06/02/2024 2:50 PM EDT Orders received, beacon plan built and routed. Awaiting auth. -Chemo Consent: 06/01/24 -Chemo Education: 06/03/24 -Port Placement: N/A -Standing Lab orders placed: Weekly CBCD,CMP , Monthly SPEP, Young Harris, IgG Pt will need T&S completed at [facility] prior to starting Darzalex -Medications Pended: None, already prescribed Dexamethasone, Acyclovir, and Aspirin -Hep B Labs: Completed 05/21/23 documented in this encounter Plan of Treatment Upcoming Encounters Date Type Department Care Team (Latest Contact Info) Description 06/13/2024 7:45 AM EDT Imaging Radiology [facility] 1st [facility], [place] [address] [facility] [place] [address] 06/22/2024 9:00 AM EDT Pharmacy Pharmacy Hematology Oncology [facility] [address] [place] [address] [facility] [place] [facility], [facility] Hem/Onc [address] [place] [address] 06/29/2024 9:00 AM EDT Office Visit Hematology/On[facility] [address] [facility] [place], [place] [phone] Abbey Aguiar MD [address] [facility] [place], [place] [address] 08/23/2024 10:00 AM EDT Office Visit Family Practice [address] [place] [address] 293 [place] [address] Jean Claude Yao DO [address] [place] [address] 09/08/2024 2:30 PM EDT Hospital Encounter ENDO OSSC, Endoscopy Room [facility] [address] [place] [phone] Irving Iyer MD [address] [place] [address] 09/08/2024 2:30 PM EDT - 09/08/2024 3:00 PM EDT Surgery ENDO [facility], Endoscopy Room [facility] [address] [place] [phone] Irving Iyer MD [address] [place] [address] COLONOSCOPY FLEXIBLE PROXIMAL DIAGNOSTIC 03/13/2025 11:00 AM EDT Office Visit Sleep Disorders Ctr [facility] [address] [place] [address] [phone] Ruma Orellana DO [address] [place] [address] Scheduled Orders Name Type Priority Associated Diagnoses [...] 02/03/2023 12/09/2022, 1211/2011 CKD PHOS USE SMARTSET 62929 06/15/2024 06/15/2023 Colonoscopy 06/29/2024 06/29/2023, 06/16, 03/16/2023, Additional history exists Colorectal Cancer Screening 06/29/2024 Influenza Vaccine (FLU shot) (#1) 2024 08/03/2023, 08/08/2022 HbA1c 09/29/2024 03/29/2024, 1211/2022, 06/15/2023 Depression Screening 09/30/2024 09/30/2023 GFR 12/08/2024 06/07/2024, 05/16, 05/09/2024, Additional history exists Diabetic Eye Exam 01/20/2025 01/21/2024, , 05/26/2022 Diabetic Foot Exam 04/12/2025 04/12/2024, 04/12/2024 Albumin/Creatinine Ratio 05/09/2025 024, 06/15/2023, 06/03/2022 CKD HGB USE SMARTSET 58563 06/07/202506/07, 06/07/2024, 05/30/2024, Additional history exists DTaP,Tdap,and [...] this encounter Medical Devices Implanted Type Area Travel Rn Device Identifier Shelf Expiration Date Model / Serial / Lot Sureclip 16mm 235cm - [id number] Implanted:Qty: 1 on 03/16/2023 by Irving Iyer MD at OR [facility] MICRO TECH ENDOSCOPY [id number] 05/19/2025 [id number] / / [id number] Duraclip 16mm Xlg Repostn - [id number] Implanted:Qty: 1 on 03/16/2023 by Irving Iyer MD at OR [facility] [employer] PHILLIP [id number] 05/18/2024 [id number] / / [id number] Duraclip 16mm Xlg Repostn - [id number] Implanted:Qty: 1 on 03/16/2023 by Irving Iyer MD at OR [facility] [employer] PHILLIP [id number] 05/18/2024 [id number] / / [id number] Duraclip 16mm Xlg Repostn - [id number] Implanted:Qty: 1 on 03/16/2023 by Irving Iyer MD at OR [facility] [employer] PH[employer] [id number] 05/18/2024 [id number] / / [id number] Duraclip 16mm Xlg Repostn - [id number] Implanted:Qty: 1 on 03/16/2023 by Irving Iyer MD at OR [facility] [employer] [id number] 05/18/2024 [id number] / / [id number] Duraclip 16mm Xlg Repostn - [id number] Implanted:Qty: 1 on 03/16/2023 by Irving Iyer MD at OR [facility] [employer] [id number] 05/18/2024 [id number] / / [id number] Duraclip 16mm Xlg Repostn - [id number] Implanted:Qty: 1 on 03/16/2023 by Irving Iyer MD at OR [facility] [employer] [id number] 05/19/2024 [id number] / / [id number] Duraclip 16mm Xlg Repostn - [id number] Implanted:Qty: 1 on 03/16/2023 by Irving Iyer MD at OR [facility] [employer] [id number] 05/19/2024 [id number] / / [id number] Duraclip 16mm Xlg Repostn - [id number] Implanted:Qty: 1 on 03/16/2023 by Irving Iyer MD at OR [facility] [employer] [id number] 05/19/2024 [id number] / / [id number] Duraclip 16mm Xlg Repostn - [id number] Implanted:Qty: 1 on 03/16/2023 by Irving Iyer MD at OR [facility] [employer] [id number] 05/18/2024 [id number] / / [id number] Duraclip 16mm Xlg Repostn - [id number] Implanted:Qty: 1 on 03/16/2023 by Irving Iyer MD at OR [facility] [employer] [id number] 05/18/2024 [id number] / / [id number] Duraclip 16mm Xlg Repostn - [id number] Implanted:Qty: 1 on 03/16/2023 by Irving Iyer MD at OR [facility] [employer] [id number] 05/18/2024 [id number] / / [id number] Duraclip 16mm Xlg Repostn - [id number] Implanted:Qty: 1 on 03/16/2023 by Irving Iyer MD at OR [facility] [employer] [id number] 05/18/2024 [id number] / / [id number] Duraclip 16mm Xlg Repostn - [id number] Implanted:Qty: 1 on 03/16/2023 by Irving Iyer MD at OR [facility] [employer] [id number] 05/18/2024 [id number] / / [id number] documented as of this encounter Results * (ABNORMAL) IMMUNOGLOBULIN QUANTITATIVE (06/07/2024 10:36 AM EDT) [facility] IgG 3,394(H) 700 - 1,600 mg/dL 06/07/2024 8:46 PM EDT LABORATORY [facility] IgA 30(L) 70 - 400 mg/dL 06/07/2024 8:46 PM EDT LABORATORY C IgM 13(L) 40 - 230 mg/dL 06/07/2024 8:46 PM EDT LABORATORY [facility] Blood Venous blood specimen / Unknown Venipuncture / Unknown 06/07/2024 10:36 AM EDT 06/07/2024 10:36 AM EDT Abbey Aguiar MD LAB BLOOD ORDERA BLES LABORATORY [facility] [address] [place] [address] * (ABNORMAL) SERUM PROTEIN ELECTROPHORESIS REFLEX PROFILE (06/07/2024 10:36 AM EDT) [facility] Normal/Abnormal Abnormal(A) Normal 06/08/20 3:53 PM EDT [...] IgG lambda. 06/08/2024 3:53 PM EDT LABORATORY [facility] Blood Venous blood specimen / Unknown Venipuncture / Unknown 06/07/2024 10:36 AM EDT 06/07/2024 10:36 AM EDT Abbey Aguiar MD LAB BLOOD ORDERA BLES Performing Organization Address City/State/RUST Co de Phone Number LABORATORY [facility] [address] [place] [address] * (ABNORMAL) SERUM FREE LIGHT CHAINS (06/07/2024 10:36 AM EDT) [facility] Young Harris Free Light Chains, Serum 8.62 3.30 - 19.40 mg/L 06/08/2024 8:49 AM EDT LABORATORY [facility] Lambda Free Light Chains, Serum 641.50(H) 5.71 - 26.30 mg/L 06/08/2024 8:49 AM EDT LABORATORY [facility] Young Harris Lambda Free Light Chains Ratio 0.01(L) 0.26 - 1.65 06/08/2024 8:49 AM EDT LABORATORY [facility] Blood Venous blood specimen / Unknown Venipuncture / Unknown 06/07/2024 10:36 AM EDT 06/07/2024 10:36 AM EDT Abbey Aguiar MD LAB BLOOD ORDERA BLES LABORATORY [facility] [address] [place] [address] * (ABNORMAL) COMPREHENSIVE METABOLIC PANEL (06/07/2024 10:36 AM EDT) BUN 26(H) 6 - 20 mg/dL 06/07/2024 11:03 AM EDT [address] Creatinine 1.5(H) 0.6 - 1.2 mg/dL 06/07/2024 11:03 AM T [address] Estimated Glomerular Filtration Rate 51(L) >=60 mL/min 06/07/2024 11:03 AM T [facility] 56 Comment:eGFR is calculated b ased on the CKD-EPI 2020 equation. Sodium 139 135 - 146 mmol/L 06/07/2024 11:03 AM T [facility] 56 Potassium 3.6 3.5 - 5.1 mmol/L 06/07/2024 11:03 AM T [facility] 56- Chloride 106 98 - 107 mmol/L 06/07/2024 11:03 AM T [facility] 56- CO2 22 22 - 32 mmol/L 06/07/2024 11:03 AM EDT [facility] 56 Anion Gap 11 7 - 15 mmol/L 06/07/2024 11:03 AM T [facility] 56 Glucose 117 70 - 120 mg/dL 06/07/2024 11:03 AM T [facility] 56- Albumin 3.3(L) 3.8 - 5.0 g/dL 06/07/2024 11:03 AM T [facility] 56- AST 11 10 - 50 U/L 06/07/2024 11:03 AM T [facility] 56- Alkaline Phosphatase 66 35 - 130 U/L 06/07/2024 11:03 AM EDT LAB[facility]ATORY [facility] 56 Bilirubin, Total 0.4 <=1.2 mg/dL 06/07/2024 11:03 AM EDT LABORATORY [facility] 56- Calcium 8.4 8.4 - 10.2 mg/dL 06/07/2024 11:03 AM EDT [facility] 56 Protein 8.2 6.0 - 8.3 g/dL 06/07/2024 11:03 AM EDT LABORATORY [facility] 56- ALT 12 10 - 50 U/L 06/07/2024 11:03 AM EDT [facility] 56 Blood Venous blood specimen / Unknown Venipuncture / Unknown 06/07/2024 10:36 AM EDT 06/07/2024 10:36 AM EDT Abbey Aguiar MD LAB BLOOD ORDERA BLES [facility] [address] [place] [address] * TYPE AND SCREEN (06/06/2024) Blood Venous blood specimen / Unknown 06/06/2024 Abbey Aguiar MD LAB BLOOD BANK T EST ORDERABLES documented in this encounter Visit Diagnoses Diagnosis Multiple myeloma not having achieved remission (HCC)- Primary Multiple myeloma, without mention of having achieved remission History of colonic polyps Personal history of colonic polyps documented in this encounter Care Teams Venue Manager Relationship Specialty Start Date End Date Jean Claude Yao DO [address] [place] [address] PCP - General Internal Medicine 05/09/24 documented as of this encounter
--- OUTSIDE RECORDS SUMMARY | 2024-07-27 10:46 | External Medical Summary | Summary of Care ---
Author Name Unknown Organization [facility] Address [address] [place] [address] Phone [phone] Care Team Providers Care Order Entry Technician Name Role Phone Jean Claued Yao DO Primary Care Provider Reason for Referral * Evaluate & Treat - Unlimited Visits (Within 10 days (routine)) - Authorized Specialty Diagnoses / Procedures Referred By Contac t Referred To Contact Pharmacist / Pharmacy Diagnoses Type 2 diabetes mellitus with hemoglobin A1c goal of less than 8.0% (HCC) MCC systemic steroid user Abbey Aguiar MD [address] [place] [address] Referral ID Status Reason Start Date Expiration Date Visits Requested Visits Authorized [id number] Authorized Specialty Services Required 06/13/2024 12/10/2024 99 99 Question Answer Referral Priority Within 10 days (routine) Where should this appointment be scheduled? [facility] Referring Provider Role: Specialist Specialty: Heme/Onc [...] have his medication therapy managed by the [facility] ([facility]) per established policies, procedures, and protocols. I also certify that this referral may serve as an initiation of service for the management of drug therapy in the above noted patient. [facility] providers will be responsible for scheduling patient visits, obtaining appropriate laboratory studies, and adjusting medication management therapy per patient's need, in addition to those roles spelled out in the clinic policy, procedures, and drug management protocols. I understand that the service provided by the [facility] Clinic is voluntary and have informed patient that they can refuse the service at their discretion. I am aware that the [facility] will provide me with a copy of the patient encounter via my Priori Data In[employer]no[employer]. I authorize the [facility] to carry out these activities on my behalf. I consider this program to be a necessary part of the patient's medical care. Kiran Nova RN Reason for Visit * Reason Onset Date Comments Precert Future 06/02/2024 Gustavo johnston Encounter Details Date Type Department Care Team (Late st Contact Info) Description 06/02/2024 Telephone Hematology/Oncology [facility] [place] [address] [facility] [place] [address] Abbey Aguiar MD [address] [place], [place] [address] Precert Future (Gustavo johnston) Allergies No known [...] Miscellaneous Notes * Telephone Encounter - Kiran Nova RN - 06/13/2024 11:20 AM EDT Spoke with patient, he is ok with having labs the same day as treatment. Scheduling- please schedule the following next week: - Labs 1 hour prior to treatment at [facility] "CBCD,CMP" - 4 hour treatment "Misty/Velcade [...] orders placed: Weekly CBCD,CMP , Monthly SPEP, Vickery, IgG Pt will need T&S completed at [facility] prior to starting Darzalex -Medications Pended: None, already prescribed Dexamethasone, Acyclovir, and Aspirin -Hep B Labs: Completed 05/21/23 documented in this encounter Plan of Treatment Upcoming Encounters Date Type Department Care Team (Latest Contact Info) Description 06/22/2024 9:00 AM EDT Pharmacy Pharmacy Hematology Oncology [facility] [address] [place] [address] [facility] [place] [address] [facility] [address] 06/29/2024 9:00 AM EDT Office Visit Hematology/Oncology [facility] [address] [facility] [place] [phone] Abbey Aguiar MD [address] [facility] [place] [address] 08/23/2024 10:00 AM EDT Office Visit Family Practice [address] [place] [address] 293 [facility], [place] [address] Jean Claude Yao DO 293 [facility] [place] [address] 09/08/2024 2:30 PM EDT Hospital Encounter ENDO OSS, Endoscopy Room [facility] [address] [place] [phone] Irving Iyer MD [address] [place] [address] 09/08/2024 2:30 PM EDT - 09/08/2024 3:00 PM EDT Surgery ENDO OSS, Endoscopy Room [facility] [address] [place] [phone] Irving Iyer MD [address] [place] [address] COLONOSCOPY FLEXIBLE PROXIMAL DIAGNOSTIC 03/13/2025 11:00 AM EDT Office Visit Sleep Disorders Ctr [facility] [address] [place] [phone] Ruma Orellana DO [address] [place] [address] Scheduled Orders Name Type Priority Associated Diagnoses [...] A1c goal of less than 8.0% (HCC) MCC systemic steroid user Ordered: 06/13/2024 Health Maintenance Due Date Last Done Comments Cologuard 1997 Fecal Occult Blood Test 1997 Sigmoidoscopy 1997 COVID-19 Vaccine (3 - Moderna risk series) 04/19/2021 03/22/2021, 02/21/2021 Zoster Vaccines (2 of 2) 02/03/2023 12/09/2022, 1211/2011 CKD PHOS USE SMARTSET 80940 06/15/2024 06/15/2023 Colonoscopy 06/29/2024 06/29/2023, 06/16, 03/16/2023, Additional history exists Colorectal Cancer Screening 06/29/2024 Influenza Vaccine (FLU shot) (#1) 2024 08/03/2023, 08/08/2022 HbA1c 09/29/2024 03/29/2024, 1211/2022, 06/15/2023 Depression Screening 09/30/2024 09/30/2023 GFR 12/08/2024 06/07/2024, 05/16, 05/09/2024, Additional history exists Diabetic Eye Exam 01/20/2025 01/21/2024, , 05/26/2022 Diabetic Foot Exam 04/12/2025 04/12/2024, 04/12/2024 Albumin/Creatinine Ratio 05/09/2025 024, 06/15/2023, 06/03/2022 CKD HGB USE SMARTSET 93441 06/07/202506/07, 06/07/2024, 05/30/2024, Additional history exists DTaP,Tdap,and [...] this encounter Medical Devices Implanted Type Area Livestock Dealer Device Identifier Shelf Expiration Date Model / Serial / Lot Sureclip 16mm 235cm - [id number] Implanted:Qty: 1 on 03/16/2023 by Irving Iyer MD at OR [facility] [employer] ENDOSCOPY [id number] 05/19/2025 [id number] / / [id number] Duraclip 16mm Xlg Repostn - [id number] Implanted:Qty: 1 on 03/16/2023 by Irving Iyer MD at OR [facility] [employer] [id number] 05/18/2024 [id number] / / [id number] Duraclip 16mm Xlg Repostn - [id number] Implanted:Qty: 1 on 03/16/2023 by Irving Iyer MD at OR [facility] [employer] [id number] 05/18/2024 [id number] / / [id number] Duraclip 16mm Xlg Repostn - [id number] Implanted:Qty: 1 on 03/16/2023 by Irving Iyer MD at OR [facility] [employer] [id number] 05/18/2024 [id number] / / [id number] Duraclip 16mm Xlg Repostn - [id number] Implanted:Qty: 1 on 03/16/2023 by Irving Iyer MD at OR [facility] [employer] [id number] 05/18/2024 [id number] / / [id number] Duraclip 16mm Xlg Repostn - [id number] Implanted:Qty: 1 on 03/16/2023 by Irving Iyer MD at OR [facility] [employer] [id number] 05/18/2024 [id number] / / [id number] Duraclip 16mm Xlg Repostn - [id number] Implanted:Qty: 1 on 03/16/2023 by Irving Iyer MD at OR [facility] [employer] [id number] 05/19/2024 [id number] / / [id number] Duraclip 16mm Xlg Repostn - [id number] Implanted:Qty: 1 on 03/16/2023 by Irving Iyer MD at OR [facility] [employer] [id number] 05/19/2024 [id number] / / [id number] Duraclip 16mm Xlg Repostn - [id number] Implanted:Qty: 1 on 03/16/2023 by Irving Iyer MD at OR [facility] [employer] [id number] 05/19/2024 [id number] / / [id number] Duraclip 16mm Xlg Repostn - [id number] Implanted:Qty: 1 on 03/16/2023 by Irving Iyer MD at OR [facility] [employer] [id number] 05/18/2024 [id number] / / [id number] Duraclip 16mm Xlg Repostn - [id number] Implanted:Qty: 1 on 03/16/2023 by Irving Iyer MD at OR [facility] [employer] [id number] 05/18/2024 [id number] / / [id number] Duraclip 16mm Xlg Repostn - [id number] Implanted:Qty: 1 on 03/16/2023 by Irving Iyer MD at OR [facility] [employer] [id number] 05/18/2024 [id number] / / [id number] Duraclip 16mm Xlg Repostn - [id number] Implanted:Qty: 1 on 03/16/2023 by Irving Iyer MD at OR [facility] [employer] [id number] 05/18/2024 [id number] / / [id number] Duraclip 16mm Xlg Repostn - [id number] Implanted:Qty: 1 on 03/16/2023 by Irving Iyer MD at OR [facility] [employer] [id number] 05/18/2024 [id number] / / [id number] documented as of this encounter Results * (ABNORMAL) IMMUNOGLOBULIN QUANTITATIVE (06/07/2024 10:36 AM EDT) [facility] IgG 3,394(H) 700 - 1,600 mg/dL [...] LAB BLOOD ORDERA BLES Performing Organization Address [facility]/ZIP Co de Phone Number LABORATORY [facility] [address] [place] [address] * (ABNORMAL) SERUM PROTEIN ELECTROPHORESIS REFLEX PROFILE (06/07/2024 10:36 AM EDT) Pathologist [facility] Normal/Abnormal Abnormal(A) Normal 06/08/20 3:53 PM EDT [...] LAB BLOOD ORDERA BLES Performing Organization Address [facility] Co de Phone Number LABORATORY [facility] [address] [place] [address] * (ABNORMAL) SERUM FREE LIGHT CHAINS (06/07/2024 10:36 AM EDT) [facility] Vickery Free Light Chains, Serum 8.62 3.30 - 19.40 mg/L 06/08/2024 8:49 AM EDT LABORATORY [facility] Lambda Free Light Chains, Serum 641.50(H) 5.71 - 26.30 mg/L 06/08/2024 8:49 AM EDT LABORATORY [facility] Vickery Lambda Free Light Chains Ratio 0.01(L) 0.26 - 1.65 06/08/2024 8:49 AM EDT LABORATORY [facility] Blood Venous blood specimen / Unknown Venipuncture / Unknown 06/07/2024 10:36 AM EDT 06/07/2024 10:36 AM EDT Abbey Aguiar MD LAB BLOOD ORDERA BLES LABORATORY [facility] [address] [place] [address] * (ABNORMAL) COMPREHENSIVE METABOLIC PANEL (06/07/2024 10:36 AM EDT) BUN 26(H) 6 - 20 mg/dL 06/07/2024 11:[address] Creatinine 1.5(H) 0.6 - 1.2 mg/dL 06/07/2024 11:03 AM T [address] Estimated Glomerular Filtration Rate 51(L) >=60 mL/min 06/07/2024 11:03 AM T [facility] 56 Comment:eGFR is calculated b ased on the CKD-EPI 2020 equation. Sodium 139 135 - 146 mmol/L 06/07/2024 11:03 AM EDT [facility] 56- Potassium 3.6 3.5 - 5.1 mmol/L 06/07/2024 11:03 AM EDT [facility] 56- Chloride 106 98 - 107 mmol/L 06/07/2024 11:03 AM EDT [facility] 56- CO2 22 22 - 32 mmol/L 06/07/2024 11:03 AM EDT [facility] 56- Anion Gap 11 7 - 15 mmol/L 06/07/2024 11:03 AM EDT [facility] 56 Glucose 117 70 - 120 mg/dL 06/07/2024 11:03 AM T [facility] 56- Albumin 3.3(L) 3.8 - 5.0 g/dL 06/07/2024 11:03 AM EDT LABORATORY [address] AST 11 10 - 50 U/L 06/07/2024 11:03 AM EDT LABORATORY [address] Alkaline Phosphatase 66 35 - 130 U/L 06/07/2024 11:03 [address]T [address] Bilirubin, Total 0.4 <=1.2 mg/dL 06/07/2024 11:03 [address] EDT [address] Calcium 8.4 8.4 - 10.2 mg/dL 06/07/2024 11:03 [address] EDT [address] Protein 8.2 6.0 - 8.3 g/dL 06/07/2024 11:[address] ALT 12 10 - 50 U/L 06/07/2024 11:03 AM EDT [address] Blood Venous blood specimen / Unknown Venipuncture / Unknown 06/07/2024 10:36 AM EDT 06/07/2024 10:36 AM EDT Abbey Aguiar MD LAB BLOOD ORDERA BLES [place] [address] [place] [address] * TYPE AND SCREEN (06/06/2024) Blood Venous blood specimen / Unknown 06/06/2024 Abbey Aguiar MD LAB BLOOD BANK T EST ORDERABLES documented in this encounter Visit Diagnoses Diagnosis Type 2 diabetes mellitus with hemoglobin A1c goal of less than 8.0% (HCC)- Primary Multiple myeloma not having achieved remission (HCC) Multiple myeloma, without mention of having achieved remission director long term care systemic steroid user History of colonic polyps Personal history of colonic polyps documented in this encounter Care Teams Order Entry Technician Relationship Specialty Start Date End Date Jean Claude Yao DO [address] [place] [address] PCP - General Internal Medicine 05/09/24 documented as of this encounter
--- OUTSIDE RECORDS SUMMARY | 2024-07-27 10:46 | External Medical Summary | Summary of Care ---
Author Name Unknown Organization [facility] Address [address] [place] [address] Phone [phone] Care Team Providers Care Coal Or Ore Controller Name Role Phone Jean Claude Yao DO Primary Care Provider [phone] Reason for Referral * Evaluate & Treat - Unlimited Visits (Within 10 days (routine)) - Authorized Specialty Diagnoses / Procedures Referred By Contac t Referred To Contact Pharmacist / Pharmacy Diagnoses Type 2 diabetes mellitus with hemoglobin A1c goal of less than 8.0% (HCC) assisted systemic steroid user Abbey Aguiar MD [address] [place] [address] Referral ID Status Reason Start Date Expiration Date Visits Requested Visits Authorized [id number] Authorized Specialty Services Required 06/13/2024 12/10/2024 99 99 Question Answer Referral Priority Within 10 days (routine) Where should this appointment be scheduled? [facility] Referring Provider Role: Specialist Specialty: Heme/Onc Reason [...] have his medication therapy managed by the [facility] ([facility]) per established policies, procedures, and protocols. I also certify that this referral may serve as an initiation of service for the management of drug therapy in the above noted patient. [facility] providers will be responsible for scheduling patient visits, obtaining appropriate laboratory studies, and adjusting medication management therapy per patient's need, in addition to those roles spelled out in the clinic policy, procedures, and drug management protocols. I understand that the service provided by the [facility] Clinic is voluntary and have informed patient that they can refuse the service at their discretion. I am aware that the [facility] will provide me with a copy of the patient encounter via my [email or web address]. I authorize the [facility] to carry out these activities on my behalf. I consider this program to be a necessary part of the patient's medical care. Kiran Nova RN Reason for Visit * Reason Onset Date Comments Precert Future 06/02/2024 Gustavo johnston Encounter Details Date Type Department Care Team (Late st Contact Info) Description 06/02/2024 Telephone Hematology/Oncology [facility]elli [facility]sey [place] [address] [facility] [place] [address] Abbey Aguiar MD [address] [place], [place] [address] Precert Future (Gustavo johnston) Allergies No known [...] Labs 1 hour prior to treatment at [facility] "CBCD,CMP" - 4 hour treatment "Misty/Velcade C1,D1" [...] orders placed: Weekly CBCD,CMP , Monthly SPEP, [place], IgG Pt will need T&S completed at [facility] prior to starting Darzalex -Medications Pended: None, already prescribed Dexamethasone, Acyclovir, and Aspirin -Hep B Labs: Completed 05/21/23 documented in this encounter Plan of Treatment Upcoming Encounters Date Type Department Care Team (Latest Contact Info) Description 06/20/2024 8:30 AM EDT Laboratory Laboratory [facility] [place] [address] [place] [phone] Laure, Lab [place] [address] [address] [place] [address] 06/20/2024 9:30 AM EDT Hem/Onc Treatment [facility]olog [facility], [place] [facility] [phone] Laure, Chair 7 Hem Onc [place] [address] [address] [place] [address] 06/22/2024 9:00 AM EDT Pharmacy Pharmacy Hematology Oncology [facility] [address] [place] [address] [facility] Hem/Onc [address] [place] [address] 06/23/2024 1:30 PM EDT Immunization/Inject ion Hematology/Oncolog y Treatment, [place] [facility] [phone] 06/29/2024 9:00 AM EDT Office Visit Hematology/Oncolog y [facility] [place] [address] [place] [phone] bAbey Aguiar MD [address] [place] [address] 08/23/2024 10:00 AM EDT Office Visit Family Practice [address] [place] [address] [address] [facility] [place] [address] Jean Claude Yao, DO [address] [place] [address] 09/08/2024 2:30 PM EDT Hospital Encounter ENDO [facility], Endoscopy Room [facility] [address] [place] [phone] Irving Iyer MD [address] [place] [address] 09/08/2024 2:30 PM EDT - 09/08/2024 3:00 PM EDT Surgery ENDO [facility], Endoscopy Room [facility] [address] [place] [phone] Irving Iyer MD [address] [place] [address] COLONOSCOPY FLEXIBLE PROXIMAL DIAGNOSTIC 03/13/2025 11:00 AM EDT Office Visit Sleep Disorders Ctr Ruel Watts [place] [address] [place] [phone] Ruma Orellana DO [address] [place] [address] Scheduled Orders Name Type Priority Associated Diagnoses [...] goal of less than 8.0% (HCC) termite helper systemic steroid user Ordered: 06/13/2024 Health Maintenance Due Date Last Done Comments Cologuard 1997 Fecal Occult Blood Test 1997 Sigmoidoscopy 1997 COVID-19 Vaccine (3 - Moderna risk series) 04/19/2021 03/22/2021, 02/21/2021 Zoster Vaccines (2 of 2) 02/03/2023 12/09/2022, 12/11/2011 CKD PHOS USE SMARTSET 77345 06/15/2024 06/15/2023 Colonoscopy 06/29/2024 06/29/2023, 06/16, 03/16/2023, Additional history exists Colorectal Cancer Screening 06/29/2024 Influenza Vaccine (FLU shot) (#1) 2024 08/03/2023, 08/08/2022 HbA1c 09/29/2024 03/29/2024, 1211/2022, 06/15/2023 Depression Screening 09/30/2024 09/30/2023 GFR 12/08/2024 06/07/2024, 05/16, 05/09/2024, Additional history exists Diabetic Eye Exam 01/20/2025 01/21/2024, , 05/26/2022 Diabetic Foot Exam 04/12/2025 04/12/2024, 04/12/2024 Albumin/Creatinine Ratio 05/09/202505/09/ 024, 06/15/2023, 06/03/2022 CKD HGB USE SMARTSET 28984 06/07/202506/07, 06/07/2024, 05/30/2024, Additional history exists DTaP,Tdap,and [...] this encounter Medical Devices Implanted Type Area Compensation Programs Manager Device Identifier Shelf Expiration Date Model / Serial / Lot Sureclip 16mm 235cm - [id number] Implanted:Qty: 1 on 03/16/2023 by Irving Iyer MD at OR [facility] MICRO TECH ENDOSCOPY [id number] 05/19/2025 [id number] / / [id number] Duraclip 16mm Xlg Repostn - [id number] Implanted:Qty: 1 on 03/16/2023 by Irving Iyer MD at OR [facility] Qwilr PHILLIP [id number] 05/18/2024 [id number] / / [id number] Duraclip 16mm Xlg Repostn - [id number] Implanted:Qty: 1 on 03/16/2023 by Irving Iyer MD at OR [facility] CONMED PHILLIP [id number] 05/18/2024 [id number] / / [id number] Duraclip 16mm Xlg Repostn - [id number] Implanted:Qty: 1 on 03/16/2023 by Irving Iyer MD at OR [facility] [employer] PHILLIP [id number] 05/18/2024 [id number] / / [id number] Duraclip 16mm Xlg Repostn - [id number] Implanted:Qty: 1 on 03/16/2023 by Irving Iyer MD at OR [facility] CONMED PHILLIP [id number] 05/18/2024 [id number] / / [id number] Duraclip 16mm Xlg Repostn - [id number] Implanted:Qty: 1 on 03/16/2023 by Irving yIer MD at OR [facility] CONMED PHILLIP [id number] 05/18/2024 [id number] / / [id number] Duraclip 16mm Xlg Repostn - [id number] Implanted:Qty: 1 on 03/16/2023 by Irving Iyer MD at OR [facility] [employer]MED [employer] [id number] 05/19/2024 [id number] / / [id number] Duraclip 16mm Xlg Repostn - [id number] Implanted:Qty: 1 on 03/16/2023 by Irving Iyer MD at OR [facility] [employer]MED [employer]IP [id number] 05/19/2024 [id number] / / [id number] Duraclip 16mm Xlg Repostn - [id number] Implanted:Qty: 1 on 03/16/2023 by Irving Iyer MD at OR [facility] CONMED PH[employer]IP [id number] 05/19/2024 [id number] / / [id number] Duraclip 16mm Xlg Repostn - [id number] Implanted:Qty: 1 on 03/16/2023 by Irving Iyer MD at OR [facility] CONMED PH[employer]IP [id number] 05/18/2024 [id number] / / [id number] Duraclip 16mm Xlg Repostn - [id number] Implanted:Qty: 1 on 03/16/2023 by Irving Iyer MD at OR [facility] CONMED PH[employer]IP [id number] 05/18/2024 [id number] / / [id number] Duraclip 16mm Xlg Repostn - [id number] Implanted:Qty: 1 on 03/16/2023 by Irving Iyer MD at OR [facility] CONMED PHILLIP [id number] 05/18/2024 [id number] / / [id number] Duraclip 16mm Xlg Repostn - [id number] Implanted:Qty: 1 on 03/16/2023 by Irving Iyer MD at OR [facility] CONMED PHILLIP [id number] 05/18/2024 [id number] / / [id number] Duraclip 16mm Xlg Repostn - [id number] Implanted:Qty: 1 on 03/16/2023 by Irving Iyer MD at OR [facility] CONMED PH[employer]IP [id number] 05/18/2024 [id number] / / [id number] documented as of this encounter Results * (ABNORMAL) IMMUNOGLOBULIN QUANTITATIVE (06/07/2024 10:36 AM EDT) Pathologist [facility] IgG 3,394(H) 700 - 1,600 mg/dL 06/07/2024 8:46 PM EDT LABORATORY [facility] IgA 30(L) 70 - 400 mg/dL 06/07/2024 8:46 PM EDT LAB[facility]ATORY [facility] IgM 13(L) 40 - 230 mg/dL 06/07/2024 8:46 PM EDT LABORATORY [facility] Blood Venous blood specimen / Unknown Venipuncture / Unknown 06/07/2024 10:36 AM EDT 06/07/2024 10:36 AM EDT Abbey Aguiar MD LAB BLOOD ORDERA BLES LABORATORY [facility] [address] [place] [address] * (ABNORMAL) SERUM PROTEIN ELECTROPHORESIS REFLEX PROFILE (06/07/2024 10:36 AM EDT) [facility] Normal/Abnormal Abnormal(A) Normal 06/08/20 3:53 PM EDT [...] Aguiar MD LAB BLOOD ORDERA BLES LABORATORY [facility] [address] [place] [address] * (ABNORMAL) SERUM FREE LIGHT CHAINS (06/07/2024 10:36 AM EDT) Pathologist [facility] [place] Free Light Chains, Serum 8.62 3.30 - 19.40 mg/L 06/08/2024 8:49 AM EDT LABORATORY [facility] Lambda Free Light Chains, Serum 641.50(H) 5.71 - 26.30 mg/L 06/08/2024 8:49 AM EDT LABORATORY [facility] [place] Lambda Free Light Chains Ratio 0.01(L) 0.26 - 1.65 06/08/2024 8:49 AM EDT LABORATORY C Blood Venous blood specimen / Unknown Venipuncture / Unknown 06/07/2024 10:36 AM EDT 06/07/2024 10:36 AM EDT Abbey Aguiar MD LAB BLOOD ORDERA BLES LABORATORY [facility] [address] [place] [address] * (ABNORMAL) COMPREHENSIVE METABOLIC PANEL (06/07/2024 10:36 AM EDT) BUN 26(H) 6 - 20 mg/dL 06/07/2024 11:03 AM EDT [address] Creatinine 1.5(H) 0.6 - 1.2 mg/dL 06/07/2024 11:03 AM EDT [address] Estimated Glomerular Filtration Rate 51(L) >=60 mL/min 06/07/2024 11:03 AM T [facility] 56 Comment:eGFR is calculated b ased on the CKD-EPI 2020 equation. Sodium 139 135 - 146 mmol/L 06/07/2024 11:03 AM T [address] Potassium 3.6 3.5 - 5.1 mmol/L 06/07/2024 11:03 AM T [address] Chloride 106 98 - 107 mmol/L 06/07/2024 11:03 AM T [address] CO2 22 22 - 32 mmol/L 06/07/2024 11:03 AM T [address] Anion Gap 11 7 - 15 mmol/L 06/07/2024 11:03 AM T [facility] 56 Glucose 117 70 - 120 mg/dL 06/07/2024 11:03 AM T [facility] 56 Albumin 3.3(L) 3.8 - 5.0 g/dL 06/07/2024 11:03 AM EDT [facility] 56 AST 11 10 - 50 U/L 06/07/2024 11:03 AM EDT [facility] 56 Alkaline Phosphatase 66 35 - 130 U/L 06/07/2024 11:03 AM T [facility] 56 Bilirubin, Total 0.4 <=1.2 mg/dL 06/07/2024 11:03 AM T [facility] 56 Calcium 8.4 8.4 - 10.2 mg/dL 06/07/2024 11:03 AM EDT [facility] 56- Protein 8.2 6.0 - 8.3 g/dL 06/07/2024 11:03 AM EDT [facility] 56- ALT 12 10 - 50 U/L 06/07/2024 11:03 AM EDT [facility] 56- Blood Venous blood specimen / Unknown Venipuncture / Unknown 06/07/2024 10:36 AM EDT 06/07/2024 10:36 AM EDT Abbey Aguiar MD LAB BLOOD ORDERA BLES [facility] [address] [place] [address] * TYPE AND SCREEN (06/06/2024) Blood Venous blood specimen / Unknown 06/06/2024 Abbey Aguiar MD LAB BLOOD BANK T EST ORDERABLES documented in this encounter Visit Diagnoses Diagnosis Type 2 diabetes mellitus with hemoglobin A1c goal of less than 8.0% (HCC)- Primary Multiple myeloma not having achieved remission (HCC) Multiple myeloma, without mention of having achieved remission assisted systemic steroid user History of colonic polyps Personal history of colonic polyps documented in this encounter Care Teams Coal Or Ore Controller Relationship Specialty Start Date End Date Jean Claude Yao DO [address] [place] [address] PCP - General Internal Medicine 05/09/24 documented as of this encounter
--- OUTSIDE RECORDS SUMMARY | 2024-07-27 10:46 | External Medical Summary | Summary of Care ---
Author Name Unknown Organization [facility] Address [address] [place] [address] Phone [phone] Care Team Providers Care Propagation Manager Name Role Phone CaseybernardJean Claude DO Primary Care Provider [phone] Reason for Visit * Reason Onset Date Comments MyCode Consent 06/13/2024 Encounter Details Date Type Department Care Team (Late st Contact Info) Description 06/13/2024 Orders Only Outcomes Research Department [address] [place] [address] Ami Moses CHRA MyCode Research Other*[id number]* Allergies No known active allergiesdocumented as of [...] as of this encounter Progress Notes * Ami Moses CHRA - 06/13/2024 8:24 AM EDT [employer] Consent Documentation Jeff Martin provided consent/authorization to participate in the [employer] Project. documented in this encounter Plan of Treatment Upcoming Encounters Date Type Department Care Team (Latest Contact Info) Description 06/22/2024 9:00 AM EDT Pharmacy Pharmacy Hematology Oncology [facility] [address] [place] [address] [facility] Hem/Onc [address] [place] [address] 06/29/2024 9:00 AM EDT [facility] [address] [place] [phone] Abbey Aguiar MD [address] [place], [place] [address] 08/23/2024 10:00 AM EDT Office Visit Family Practice [address] [place] [address] [address] [place] [phone] Jean Claude Yao DO 293 [place] [address] 09/08/2024 2:30 PM EDT Hospital Encounter ENDO [facility], Endoscopy Room [facility] [address] [place] [phone] Irving Iyer MD [address] [place] [address] 09/08/2024 2:30 PM EDT - 09/08/2024 3:00 PM EDT Surgery ENDO [facility], Endoscopy Room [facility] [address] [place] [phone] Irving Iyer MD [address] [place] [address] COLONOSCOPY FLEXIBLE PROXIMAL DIAGNOSTIC 03/13/2025 11:00 AM EDT Office Visit Sleep Disorders Ctr [facility] [address] [place] [phone] Ruma Orellaan DO [address] [place] [address] Scheduled Orders Name Type Priority Associated Diagnoses Orde r Schedule MYCODE INITIAL ADULT Lab Routine MyCode Research Other*[id number] Expected: 06/13/2024 (Approximate), Expires: 07/03/2025 Scheduled Procedures Name Priority Associated Diagnoses Date/Ti me COLONOSCOPY FLEXIBLE PROXIMAL DIAGNOSTIC Recall History of colonic polyps 09/08/2024 2:30 PM EDT Health Maintenance Due Date Last Done Comments Cologuard 1997 Fecal Occult Blood Test 1997 Sigmoidoscopy 1997 COVID-19 Vaccine (3 - Moderna risk series) 04/19/2021 03/22/2021, 02/21/2021 Zoster Vaccines (2 of 2) 02/03/2023 12/09/2022, 12/0 11/2011 CKD PHOS USE SMARTSET 31550 06/15/2024 06/15/2023 Colonoscopy 06/29/2024 06/29/2023, 06/16, 03/16/2023, Additional history exists Colorectal Cancer Screening 06/29/2024 Influenza Vaccine (FLU shot) (#1) 2024 08/03/2023, 08/08/2022 HbA1c 09/29/2024 03/29/2024, 11/2022, 06/15/2023 Depression Screening 09/30/2024 09/30/2023 GFR 12/08/2024 06/07/2024, 05/16, 05/09/2024, Additional history exists Diabetic Eye Exam 01/20/2025 01/21/2024, , 05/26/2022 Diabetic Foot Exam 04/12/2025 04/12/2024, 04/12/2024 Albumin/Creatinine Ratio 05/09/2025 024, 06/15/2023, 06/03/2022 CKD HGB USE SMARTSET 15514 06/07/202506/07, 06/07/2024, 05/30/2024, Additional history exists DTaP,Tdap,and [...] this encounter Medical Devices Implanted Type Area Steam Pressure Chamber Operator Device Identifier Shelf Expiration Date Model / Serial / Lot Sureclip 16mm 235cm - [id number] Implanted:Qty: 1 on 03/16/2023 by Irving Iyer MD at OR [facility] MICRO TECH ENDOSCOPY [id number] 05/19/2025 [id number] / / [id number] Duraclip 16mm Xlg Repostn - [id number] Implanted:Qty: 1 on 03/16/2023 by Irving Iyer MD at OR [facility] CONMED PHILLIP [id number] 05/18/2024 [id number] / / [id number] Duraclip 16mm Xlg Repostn - [id number] Implanted:Qty: 1 on 03/16/2023 by Irving Iyer MD at OR [facility] CONMED PHILLIP [id number] 05/18/2024 [id number] / / [id number] Duraclip 16mm Xlg Repostn - [id number] Implanted:Qty: 1 on 03/16/2023 by Irving Iyer MD at OR [facility] [employer]MED PHILLIP [id number] 05/18/2024 [id number] / / [id number] Duraclip 16mm Xlg Repostn - [id number] Implanted:Qty: 1 on 03/16/2023 by Irving Iyer MD at OR [facility] [employer]MED [employer]IP [id number] 05/18/2024 [id number] / / [id number] Duraclip 16mm Xlg Repostn - [id number] Implanted:Qty: 1 on 03/16/2023 by Irving Iyer MD at OR [facility] [employer]MED PH[employer]IP [id number] 05/18/2024 [id number] / / [id number] Duraclip 16mm Xlg Repostn - [id number] Implanted:Qty: 1 on 03/16/2023 by Irving Iyer MD at OR [facility] CONMED PH[employer]IP [id number] 05/19/2024 [id number] / / [id number] Duraclip 16mm Xlg Repostn - [id number] Implanted:Qty: 1 on 03/16/2023 by Irving Iyer MD at OR [facility] CONMED PH[employer]IP [id number] 05/19/2024 [id number] / / [id number] Duraclip 16mm Xlg Repostn - [id number] Implanted:Qty: 1 on 03/16/2023 by Irving Iyer MD at OR [facility] CONMED [employer]IP [id number] 05/19/2024 [id number] / / [id number] Duraclip 16mm Xlg Repostn - [id number] Implanted:Qty: 1 on 03/16/2023 by Irving Iyer MD at OR [facility] [employer]IP [id number] 05/18/2024 [id number] / / [id number] Duraclip 16mm Xlg Repostn - [id number] Implanted:Qty: 1 on 03/16/2023 by Irving Iyer MD at OR [facility] [employer]IP [id number] 05/18/2024 [id number] / / [id number] Duraclip 16mm Xlg Repostn - [id number] Implanted:Qty: 1 on 03/16/2023 by Irving Iyer MD at OR [facility] [employer] [id number] 05/18/2024 [id number] / / [id number] Duraclip 16mm Xlg Repostn - [id number] Implanted:Qty: 1 on 03/16/2023 by Irving Iyer MD at OR [facility] [employer] [id number] 05/18/2024 [id number] / / [id number] Duraclip 16mm Xlg Repostn - [id number] Implanted:Qty: 1 on 03/16/2023 by Irving Iyer MD at OR [facility] [employer] [id number] 05/18/2024 [id number] / / [id number] documented as of this encounter Visit Diagnoses Diagnosis MyCode Research Other*[id number]- Primary History of colonic polyps Personal history of colonic polyps documented in this encounter Care Teams Propagation Manager Relationship Specialty Start Date End Date Jean Claude Yao DO [address] [place] [address] PCP - General Internal Medicine 05/09/24 documented as of this encounter
--- OUTSIDE RECORDS SUMMARY | 2024-07-27 10:46 | External Medical Summary | Summary of Care ---
Author Name Unknown Organization [facility] Address [address] [place] [address] Phone [phone] Care Team Providers Care Pourer Buggy Ladle Name Role Phone Jean Claude Yao DO Primary Care Provider [phone] Reason for Visit * Reason Onset Date Comments Test Results 06/13/2024 Unexpected or In determinate Result Encounter Details Date Type Department Care Team (Late st Contact Info) Description 06/13/2024 Telephone [address] [facility] [place] [address] Abbey Aguiar MD [address] [place] [address] Test Results (Unexpected or Indeterminate [...] unexpected or indeterminate finding on Jeff Martin ([id number]) and asks that you review the following [...] Thank you, RANDOLPH Mustafa Client Service Rep [facility] documented in this encounter Plan of Treatment Upcoming Encounters Date Type Department Care Team (Latest Contact Info) Description 06/20/2024 8:30 AM EDT Laboratory Laboratory [facility] Seth Kelsey [address] [place] [phone] Bryant, Lab Scenery [address] [facility] [place] [address] 06/20/2024 9:30 AM EDT Hem/Onc Treatment Hematology/Oncolog y Treatment, [place] 200 [facility], [place] [phone] Laure, Chair 7 Hem Onc [facility] 200 [facility] [place] [address] 06/22/2024 9:00 AM EDT Pharmacy Pharmacy Hematology Oncology [facility] [address] [place] [address] [facility] [place] [facility] Hem/Onc [address] [place] [address] 06/23/2024 1:30 PM EDT Immunization/Inject ion Hematology/Oncolog y Treatment, [place] 200 [facility], [place] [phone] 06/29/2024 9:00 AM EDT Office Visit Hematology/Oncolog y [facility] [place] 200 [facility] [place] [phone] Abbey Aguiar MD 200 [facility] [place] [address] 08/23/2024 10:00 AM EDT Office Visit Family Practice [address] [place] [address] 293 [place] [address] Jean Claude Yao DO 293 [place] [address] 09/08/2024 2:30 PM EDT Hospital Encounter ENDO [facility], Endoscopy Room [facility] [address] [place] [phone] Irving Iyer MD [address] [place] [address] 09/08/2024 2:30 PM EDT - 09/08/2024 3:00 PM EDT Surgery ENDO [facility], Endoscopy Room [facility] [address] [place] [phone] Irving Iyer MD [address] [place] [address] COLONOSCOPY FLEXIBLE PROXIMAL DIAGNOSTIC 03/13/2025 11:00 AM EDT Office Visit Sleep Disorders Ctr [facility] [address] [place] [phone] Ruma Orellana DO [address] [place] [address] Scheduled Procedures Name Priority Associated Diagnoses Date/Ti me COLONOSCOPY FLEXIBLE PROXIMAL DIAGNOSTIC Recall History of colonic polyps 09/08/2024 2:30 PM EDT Health Maintenance Due Date Last Done Comments Cologuard 1997 Fecal Occult Blood Test 1997 Sigmoidoscopy 1997 COVID-19 Vaccine (3 - Moderna risk series) 04/19/2021 03/22/2021, 02/21/2021 Zoster Vaccines (2 of 2) 02/03/2023 12/09/2022, 11/2011 CKD PHOS USE SMARTSET 34666 06/15/2024 06/15/2023 Colonoscopy 06/29/2024 06/29/2023, 06/16, 03/16/2023, Additional history exists Colorectal Cancer Screening 06/29/2024 Influenza Vaccine (FLU shot) (#1) 2024 08/03/2023, 08/08/2022 HbA1c 09/29/2024 03/29/2024, 1211/2022, 06/15/2023 Depression Screening 09/30/2024 09/30/2023 GFR 12/08/2024 06/07/2024, 05/16, 05/09/2024, Additional history exists Diabetic Eye Exam 01/20/2025 01/21/2024, , 05/26/2022 Diabetic Foot Exam 04/12/2025 04/12/2024, 04/12/2024 Albumin/Creatinine Ratio 05/09/2025 024, 06/15/2023, 06/03/2022 CKD HGB USE SMARTSET 58146 06/07/202506/07, 06/07/2024, 05/30/2024, Additional history exists DTaP,Tdap,and [...] this encounter Medical Devices Implanted Type Area Employment Evaluator/Case Manager Device Identifier Shelf Expiration Date Model / Serial / Lot Sureclip 16mm 235cm - [id number] Implanted:Qty: 1 on 03/16/2023 by Irving Iyer MD at OR [facility] MICRO TECH ENDOSCOPY [id number] 05/19/2025 [id number] / / [id number] Duraclip 16mm Xlg Repostn - [id number] Implanted:Qty: 1 on 03/16/2023 by Irving Iyer MD at OR [facility] Prior[employer] PHILLIP [id number] 05/18/2024 [id number] / / [id number] Duraclip 16mm Xlg Repostn - [id number] Implanted:Qty: 1 on 03/16/2023 by Irving Iyer MD at OR [facility] S-cubismMED PHILLIP [id number] 05/18/2024 [id number] / / [id number] Duraclip 16mm Xlg Repostn - [id number] Implanted:Qty: 1 on 03/16/2023 by Irving Iyer MD at OR [facility] CONMED PHILLIP [id number] 05/18/2024 [id number] / / [id number] Duraclip 16mm Xlg Repostn - [id number] Implanted:Qty: 1 on 03/16/2023 by Irving Iyer MD at OR [facility] [employer]MED PH[employer]IP [id number] 05/18/2024 [id number] / / [id number] Duraclip 16mm Xlg Repostn - [id number] Implanted:Qty: 1 on 03/16/2023 by Irving Iyer MD at OR [facility] [employer]IP [id number] 05/18/2024 [id number] / / [id number] Duraclip 16mm Xlg Repostn - [id number] Implanted:Qty: 1 on 03/16/2023 by Irving Iyer MD at OR [facility] [employer] [id number] 05/19/2024 [id number] / / [id number] Duraclip 16mm Xlg Repostn - [id number] Implanted:Qty: 1 on 03/16/2023 by Irving Iyer MD at OR [facility] CONMED PH[employer]IP [id number] 05/19/2024 [id number] / / [id number] Duraclip 16mm Xlg Repostn - [id number] Implanted:Qty: 1 on 03/16/2023 by Irving Iyer MD at OR [facility] CONMED PH[employer]IP [id number] 05/19/2024 [id number] / / [id number] Duraclip 16mm Xlg Repostn - [id number] Implanted:Qty: 1 on 03/16/2023 by Irving Iyer MD at OR [facility] [employer] PH[employer]IP [id number] 05/18/2024 [id number] / / [id number] Duraclip 16mm Xlg Repostn - [id number] Implanted:Qty: 1 on 03/16/2023 by Irving Iyer MD at OR [facility] [employer]IP [id number] 05/18/2024 [id number] / / [id number] Duraclip 16mm Xlg Repostn - [id number] Implanted:Qty: 1 on 03/16/2023 by Irving Iyer MD at OR [facility] [employer]IP [id number] 05/18/2024 [id number] / / [id number] Duraclip 16mm Xlg Repostn - [id number] Implanted:Qty: 1 on 03/16/2023 by Irving Iyer MD at OR [facility] CONMED PH[employer]IP [id number] 05/18/2024 [id number] / / [id number] Duraclip 16mm Xlg Repostn - [id number] Implanted:Qty: 1 on 03/16/2023 by Irving Iyer MD at OR [facility] [employer] PH[employer]IP [id number] 05/18/2024 [id number] / / [id number] documented as of this encounter Care Teams Pourer Buggy Ladle Relationship Specialty Start Date End Date Jean Claude Yao DO [address] [place] [address] PCP - General Internal Medicine 05/09/24 documented as of this encounter
--- OUTSIDE RECORDS SUMMARY | 2024-07-27 10:47 | External Medical Summary | Summary of Care ---
Author Name Unknown Organization [facility] Address [address] [place] [address] Phone [phone] Care Team Providers Care Die Maintenance Technician Name Role Phone Jean Claude Yao DO Primary Care Provider [phone] Encounter Details Date Type Department Care Team (Late st Contact Info) Description 06/06/2024 Result Scan Unspecified Department Stefania, Abbey Medrano MD [address] [place] [address] <No scans attached> Allergies No known active allergiesdocumented as of [...] Department Care Team (Latest Contact Info) Description 06/08/2024 9:15 AM EDT Pharmacy Pharmacy Hematology Oncology [facility] [place] [address] [place] [address] [facility] Hem/Onc [address] [place] [address] 06/13/2024 7:45 AM EDT Imaging Radiology [address] [facility] [place] [address] 06/29/2024 9:00 AM EDT Office Visit Hematology/Oncology [facility] 200 [facility] [place] [phone] Abbey Aguiar MD 200 [facility] [place] [address] 08/23/2024 10:00 AM EDT Office Visit Family Practice [address], [place] 293 [place] [address] Jean [facility] DO [facility] [address] 09/08/2024 2:30 PM EDT Hospital Encounter ENDO [facility], Endoscopy Room [facility] [place] [phone] Irving Iyer MD [address] [place] [address] 09/08/2024 2:30 PM EDT - 09/08/2024 3:00 PM EDT Surgery ENDO [facility], Endoscopy Room [facility] [address] [place] [phone] Irving Iyer MD [address] [place] [address] COLONOSCOPY FLEXIBLE PROXIMAL DIAGNOSTIC 03/13/2025 11:00 AM EDT Office Visit Sleep Disorders Ctr [facility] [address] [place] [phone] Ruma Orellana DO [address] [place] [address] Scheduled Procedures Name Priority Associated Diagnoses Date/Ti me COLONOSCOPY FLEXIBLE PROXIMAL DIAGNOSTIC Recall History of colonic polyps 09/08/2024 2:30 PM EDT Health Maintenance Due Date Last Done Comments Cologuard 1997 Fecal Occult Blood Test 1997 Sigmoidoscopy 1997 COVID-19 Vaccine (3 - Moderna risk series) 04/19/2021 03/22/2021, 02/21/2021 Zoster Vaccines (2 of 2) 02/03/2023 12/09/2022, 1211/2011 CKD PHOS USE SMARTSET 18484 06/15/2024 06/15/2023 Colonoscopy 06/29/2024 06/29/2023, 06/16, 03/16/2023, Additional history exists Colorectal Cancer Screening 06/29/2024 Influenza Vaccine (FLU shot) (#1) 2024 08/03/2023, 08/08/2022 HbA1c 09/29/2024 03/29/2024, 120 11/2022, 06/15/2023 Depression Screening 09/30/2024 09/30/2023 GFR 12/08/2024 06/07/2024, 05/16, 05/09/2024, Additional history exists Diabetic Eye Exam 01/20/2025 01/21/2024, , 05/26/2022 Diabetic Foot Exam 04/12/2025 04/12/2024, 04/12/2024 Albumin/Creatinine Ratio 05/09/2025 024, 06/15/2023, 06/03/2022 CKD HGB USE SMARTSET 52656 06/07/202506/07, 06/07/2024, 05/30/2024, Additional history exists DTaP,Tdap,and [...] this encounter Medical Devices Implanted Type Area Clinical Application Manager Device Identifier Shelf Expiration Date Model / Serial / Lot Sureclip 16mm 235cm - [id number] Implanted:Qty: 1 on 03/16/2023 by [facility]yer MD [facility] MICRO TECH ENDOSCOPY [id number] 05/19/2025 [id number] / / [id number] Duraclip 16mm Xlg Repostn - [id number] Implanted:Qty: 1 on 03/16/2023 by Irving Iyer MD at [facility] [employer]IP [id number] 05/18/2024 [id number] / / [id number] Duraclip 16mm Xlg Repostn - [id number] Implanted:Qty: 1 on 03/16/2023 by Irving Iyer MD at [facility] [employer] [id number] 05/18/2024 [id number] / / [id number] Duraclip 16mm Xlg Repostn - [id number] Implanted:Qty: 1 on 03/16/2023 by Irving Iyer MD at [facility] [employer] [id number] 05/18/2024 [id number] / / [id number] Duraclip 16mm Xlg Repostn - [id number] Implanted:Qty: 1 on 03/16/2023 by Irving Iyer MD at OR [facility] [employer] [id number] 05/18/2024 [id number] / / [id number] Duraclip 16mm Xlg Repostn - [id number] Implanted:Qty: 1 on 03/16/2023 by Irving Iyer MD at OR [facility] [employer]IP [id number] 05/18/2024 [id number] / / [id number] Duraclip 16mm Xlg Repostn - [id number] Implanted:Qty: 1 on 03/16/2023 by Irving Iyer MD at OR [facility] [employer] [id number] 05/19/2024 [id number] / / [id number] Duraclip 16mm Xlg Repostn - [id number] Implanted:Qty: 1 on 03/16/2023 by Irving Iyer MD at OR [facility] [employer] [id number] 05/19/2024 [id number] / / [id number] Duraclip 16mm Xlg Repostn - [id number] Implanted:Qty: 1 on 03/16/2023 by Irving Iyer MD at OR [facility] [employer] [id number] 05/19/2024 [id number] / / [id number] Duraclip 16mm Xlg Repostn - [id number] Implanted:Qty: 1 on 03/16/2023 by Irving Iyer MD at OR [facility] [employer] [id number] 05/18/2024 [id number] / / [id number] Duraclip 16mm Xlg Repostn - [id number] Implanted:Qty: 1 on 03/16/2023 by Irving Iyer MD at OR [facility] [employer] [id number] 05/18/2024 [id number] / / [id number] Duraclip 16mm Xlg Repostn - [id number] Implanted:Qty: 1 on 03/16/2023 by Irving Iyer MD at OR [facility] [employer] [id number] 05/18/2024 [id number] / / [id number] Duraclip 16mm Xlg Repostn - [id number] Implanted:Qty: 1 on 03/16/2023 by Irving Iyer MD at OR [facility] [employer] [id number] 05/18/2024 [id number] / / [id number] Duraclip 16mm Xlg Repostn - [id number] Implanted:Qty: 1 on 03/16/2023 by Irving Iyer MD at OR [facility] [employer] [id number] 05/18/2024 [id number] / / [id number] documented as of this encounter Procedures Procedure Name Priority Date/Time Associated Diagnosis Comments OUTSIDE LAB RESULTS 06/06/2024 documented in this encounter Results * OUTSIDE LAB RESULTS (06/06/2024) 06/06/2024 Abbey Aguiar MD LABORATORY documented in this encounter Care Teams Die Maintenance Technician Relationship Specialty Start Date End Date Jean Claude Yao DO [address] [place] [address] PCP - General Internal Medicine 05/09/24 documented as of this encounter
--- OUTSIDE RECORDS SUMMARY | 2024-07-27 10:47 | External Medical Summary ---
Author Name Unknown Address Unknown Organization K09[facility] [place] [address] Laboratory Report Ordering Provider Test Date Status CARLENE PEREZ 06/07/2024 10:36:34 Final Observation Date Value Abnormality Reference (Units ) Status SYNC LEUKOCYTES IN BLOOD BY AUTOMATED COUNT 06/07/2024 10:36:34 3.44 Below low normal 4.00-10.80 (K/uL) Final Segs 06/07/2024 10:36:34 35.8 Below low normal 40.0-75.0 (%) Final Lymphs % 06/07/2024 10:36:34 42.7 Above high normal 18.0-42.0 (%) Final Monos 06/07/2024 10:36:34 19.5 Above high normal 1.0-11.0 (%) Final Eosinophils 06/07/2024 10:36:34 1.7 0.0-6.0 (%) Final Basos 06/07/2024 10:36:34 0.3 0.0-2.0 (%) Final Absolute Segs 06/07/2024 10:36:34 1.23 Below low normal 1.80-7.70 (K/uL) Final Lymphs, absolute 06/07/2024 10:36:34 1.47 1.00-4.80 (K/ul) Final Monos, Abs 06/07/2024 10:36:34 0.67 0.00-1.10 (K/uL) Final Eos, Abs 06/07/2024 10:36:34 0.06 0.00-0.70 (K/uL) Final Basos, Abs 06/07/2024 10:36:34 0.01 0.00-0.20 (K/uL) Final Performing Location [facility] [place] [address]
--- OUTSIDE RECORDS SUMMARY | 2024-07-27 10:47 | External Medical Summary ---
Author Name Unknown Address Unknown Organization K01[facility] [place] [address] [place] [address] Laboratory Report Ordering Provider Test Date Status CARLENE PEREZ 06/07/2024 10:36:34 Final Observation Date Value Abnormality Reference (Units ) Status IgG 06/07/2024 10:36:34 3394 Above high normal 70 0-1600 (mg/dL) Final IgA 06/07/2024 10:36:34 30 Below low normal 70- 400 (mg/dL) Final IgM 06/07/2024 10:36:34 13 Below low normal 40- 230 (mg/dL) Final Performing Location [facility] - [address] [place] [address]
--- OUTSIDE RECORDS SUMMARY | 2024-07-27 10:47 | External Medical Summary ---
Author Name Unknown Address Unknown Organization K09:[facility] [place] [address] Laboratory Report Ordering Provider Test Date Status CARLENE PEREZ 06/07/2024 10:36:34 Final Observation Date Value Abnormality Reference (Units ) Status WBC, Total 06/07/2024 10:36:34 3.44 Below low normal 4. 00-10.80 (K/uL) Final RBC 06/07/2024 10:36:34 2.69 4.50-5.25 (M/uL) Final Hemoglobin 06/07/2024 10:36:34 9.4 Below low normal 14 .0-16.8 (g/dL) Final HCT 06/07/2024 10:36:34 28.8 Below low normal 40. 0-48.4 (%) Final MCV 06/07/2024 10:36:34 107.1 82.0-99.5 (fL) Final MCH 06/07/2024 10:36:34 34.9 27.0-34.0 (pg) Final MCHC 06/07/2024 10:36:34 32.6 32.0-36.0 (g/dL) Final RDW 06/07/2024 10:36:34 14.4 11.5-15.5 (%) Final Platelets 06/07/2024 10:36:34 128 Below low normal 140 -400 (K/uL) Final MPV 06/07/2024 10:36:34 8.8 6.6-11.1 ( fL) Final Performing Location [facility] [place] [address]
--- OUTSIDE RECORDS SUMMARY | 2024-07-27 10:47 | External Medical Summary | Summary of Care ---
Author Name Unknown Organization [facility] Address [address] [place] [address] Phone [phone] Care Team Providers Care Banking Center Manager Name Role Phone Jean Claude Yao DO Primary Care Provider [phone] Reason for Visit * Reason Comments Outpatient Testing Encounter Details Date Type Department Care Team (Late st Contact Info) Description 06/07/2024 10:30 AM EDT Laboratory Laboratory [facility] [place] [address] [place] [address] [place], [place] [facility] 200 [facility] [place] [address] Multiple myeloma not having achieved remission (HCC) Allergies No known active allergiesdocumented as of this encounter (statuses as of 06/07/2024) Medications Medication Sig Dispensed Refills Start Date [...] as of this encounter (statuses as of 06/07/2024) Active Problems Problem Noted Date Diagnosed Date [...] as of this encounter (statuses as of 06/07/2024) Resolved Problems Problem Noted Date Diagnosed Date Resolved Date Prediabetes 10/26/2023 12/31/2023 Overview: Per Prediabetes protocol Hypertensive kidney disease with stage 3a chronic kidney disease 07/02/2023 03/29/2024 Lesion of pancreas 12/09/2022 documented as of this encounter (statuses as of 06/07/2024) Immunizations Name Administration Dates Next Due COVID-19 [...] 2:38 PM EDT Sexual Orientation Straight 05/27/2022 2 :38 PM EDT Job Start Date Occupation Industry Not on file Not on file Not on file documented as of this encounter Plan of Treatment Upcoming Encounters Date Type Department Care Team (Latest Contact Info) Description 06/08/2024 9:15 AM EDT Pharmacy Pharmacy Hematology Oncology [facility] [address] [place] [address] [facility] [place] Clinic Hem/Onc [address] [place] [address] 06/13/2024 7:45 AM EDT Imaging Radiology [address] [place] [address] 06/29/2024 9:00 AM EDT Office Visit Hematology/On[facility] 200 [facility] [place] [phone] Abbey Aguiar MD 200 [facility] [place] [address] 08/23/2024 10:00 AM EDT Office Visit Family Practice 65 [facility], [place] 293 [place] [address] Jean Claude Yao DO 293 [facility] [place] [address] 09/08/2024 2:30 PM EDT Hospital Encounter ENDO [facility], Endoscopy Room [facility] [address] [place] [phone] Irving Iyer MD [address] [place] [address] 09/08/2024 2:30 PM EDT - 09/08/2024 3:00 PM EDT Surgery ENDO [facility], Endoscopy Room [facility] [address] [place] [phone] Irving Iyer MD [address] [place] [address] COLONOSCOPY FLEXIBLE PROXIMAL DIAGNOSTIC 03/13/2025 11:00 AM EDT Office Visit Sleep Disorders Ctr [facility] [address] [place] [phone] Ruma Orellana DO [address] [place] [address] Pending Results Name Type Priority Associated Diagnoses Date /Time COMPREHENSIVE METABOLIC PANEL Lab STAT Multiple myeloma not having achieved remission (HCC) 06/07/2024 10:36 AM EDT SERUM FREE LIGHT CHAINS Lab STAT Multiple myeloma not having achieved remission (HCC) 06/07/2024 10:36 AM EDT SERUM PROTEIN ELECTROPHORESIS REFLEX PROFILE Lab STAT Multiple myeloma not having achieved remission (HCC) 06/07/2024 10:36 AM EDT IMMUNOGLOBULIN QUANTITATIVE Lab STAT Multiple myeloma not having achieved remission (HCC) 06/07/2024 10:36 AM EDT Scheduled Procedures Name Priority Associated Diagnoses Date/Ti me COLONOSCOPY FLEXIBLE PROXIMAL DIAGNOSTIC Recall History of colonic polyps 09/08/2024 2:30 PM EDT Health Maintenance Due Date Last Done Comments Cologuard 1997 Fecal Occult Blood Test 1997 Sigmoidoscopy 1997 COVID-19 Vaccine (3 - Moderna risk series) 04/19/2021 03/22/2021, 02/21/2021 Zoster Vaccines (2 of 2) 02/03/2023 12/09/2022, 11/2011 CKD PHOS USE SMARTSET 77592 06/15/2024 06/15/2023 Colonoscopy 06/29/2024 06/29/2023, 06/16, 03/16/2023, Additional history exists Colorectal Cancer Screening 06/29/2024 Influenza Vaccine (FLU shot) (#1) 2024 08/03/2023, 08/08/2022 HbA1c 09/29/2024 03/29/2024, 11/2022, 06/15/2023 Depression Screening 09/30/2024 09/30/2023 GFR 11/30/2024 05/30/2024, 04/17, 04/07/2024, Additional history exists Diabetic Eye Exam 01/20/2025 01/21/2024, , 05/26/2022 Diabetic Foot Exam 04/12/2025 04/12/2024, 04/12/2024 Albumin/Creatinine Ratio 05/09/2025 024, 06/15/2023, 06/03/2022 CKD HGB USE SMARTSET 22312 05/30/202506/07, 06/07/2024, 05/30/2024, Additional history exists DTaP,Tdap,and Td [...] this encounter Medical Devices Implanted Type Area Union Contract Representative Device Identifier Shelf Expiration Date Model / Serial / Lot Sureclip 16mm 235cm - [id number] Implanted:Qty: 1 on 03/16/2023 by Irving Iyer MD at OR [facility] MICRO TECH ENDOSCOPY [id number] 05/19/2025 [id number] / / [id number] Duraclip 16mm Xlg Repostn - [id number] Implanted:Qty: 1 on 03/16/2023 by Irving Iyer MD at OR [facility] [employer] [id number] 05/18/2024 [id number] / / [id number] Duraclip 16mm Xlg Repostn - [id number] Implanted:Qty: 1 on 03/16/2023 by Irving Iyer MD at OR [facility] [employer] [id number] 05/18/2024 [id number] / / [id number] Duraclip 16mm Xlg Repostn - [id number] Implanted:Qty: 1 on 03/16/2023 by Irving Iyer MD at OR [facility] [employer]IP [id number] 05/18/2024 [id number] / / [id number] Duraclip 16mm Xlg Repostn - [id number] Implanted:Qty: 1 on 03/16/2023 by Irving Iyer MD at OR [facility] [employer] [id number] 05/18/2024 [id number] / / [id number] Duraclip 16mm Xlg Repostn - [id number] Implanted:Qty: 1 on 03/16/2023 by Irving Iyer MD at OR [facility] [employer] [id number] 05/18/2024 [id number] / / [id number] Duraclip 16mm Xlg Repostn - [id number] Implanted:Qty: 1 on 03/16/2023 by Irving Iyer MD at OR [facility] [employer] [id number] 05/19/2024 [id number] / / [id number] Duraclip 16mm Xlg Repostn - [id number] Implanted:Qty: 1 on 03/16/2023 by Irving Iyer MD at OR [facility] [employer] [id number] 05/19/2024 [id number] / / [id number] Duraclip 16mm Xlg Repostn - [id number] Implanted:Qty: 1 on 03/16/2023 by Irving Iyer MD at OR [facility] [employer] [id number] 05/19/2024 [id number] / / [id number] Duraclip 16mm Xlg Repostn - [id number] Implanted:Qty: 1 on 03/16/2023 by Irving Iyer MD at OR [facility] [employer] [id number] 05/18/2024 [id number] / / [id number] Duraclip 16mm Xlg Repostn - [id number] Implanted:Qty: 1 on 03/16/2023 by Irving Iyer MD at OR [facility] [employer] [id number] 05/18/2024 [id number] / / [id number] Duraclip 16mm Xlg Repostn - [id number] Implanted:Qty: 1 on 03/16/2023 by Irving Iyer MD at OR [facility] [employer] [id number] 05/18/2024 [id number] / / [id number] Duraclip 16mm Xlg Repostn - [id number] Implanted:Qty: 1 on 03/16/2023 by Irving Iyer MD at OR [facility] [employer] [id number] 05/18/2024 [id number] / / [id number] Duraclip 16mm Xlg Repostn - [id number] Implanted:Qty: 1 on 03/16/2023 by Irving Iyer MD at OR [facility] [employer] [id number] 05/18/2024 [id number] / / [id number] documented as of this encounter Procedures Procedure Name Priority Date/Time Associated Diagnosis Comments DIFFERENTIAL, AUTOMATED STAT 06/07/2024 10:36 AM EDT Multiple myeloma not having achieved remission (HCC) CBC STAT 06/07/2024 10:36 AM EDT Multiple myeloma not having achieved remission (HCC) CBC STAT 06/07/2024 10:36 AM EDT Multiple myeloma not having achieved remission (HCC) documented in this encounter Results * (ABNORMAL) DIFFERENTIAL, AUTOMATED (06/07/2024 10:36 AM EDT) Pathologist [facility] WBC 3.44(L) 4.00 - 10.80 K/uL 06/07/2024 10:44 AM EDT LABORATORY [place] 56-02 Neutrophils % 35.8(L) 40.0 - 75.0 % 06/07/2024 10:44 AM EDT LAB[facility] [place] 56-02 Lymphocytes % 42.7(H) 18.0 - 42.0 % 06/07/2024 10:44 AM EDT LABORATORY STATE [facility] 56-02 Monocytes % 19.5(H) 1.0 - 11.0 % 06/07/2024 10:44 AM EDT LABORATORY STATE [place] 56-02 Eosinophils % 1.7 0.0 - 6.0 % 06/07/2024 10:44 AM EDT LABORATORY STATE [place] 56-02 Basophils % 0.3 0.0 - 2.0 % 06/07/2024 10:44 AM EDT LAB[facility]ORY [place] 56-02 Absolute Neutrophils 1.23(L) 1.80 - 7.70 K/uL 06/07/2024 10:44 AM EDT LABORATORY [facility] [place] 56-02 Absolute Lymphocytes 1.47 1.00 - 4.80 K/ul 06/07/2024 10:44 AM EDT LABORATORY [facility] [place] 56-02 Absolute Monocytes 0.67 0.00 - 1.10 K/uL 06/07/2024 10:44 AM EDT LABORATORY [facility] [place] 56-02 Absolute Eosinophils 0.06 0.00 - 0.70 K/uL 06/07/2024 10:44 AM EDT LAB[facility]ORY [place] 56-02 Absolute Basophils 0.01 0.00 - 0.20 K/uL 06/07/2024 10:44 AM EDT LAB[facility]ORY [place] 56-02 Blood Venous blood specimen / Unknown Venipuncture / Unknown 06/07/2024 10:36 AM EDT 06/07/2024 10:36 AM EDT Abbey Aguiar MD LAB BLOOD [facility] [address] [place] [address] * (ABNORMAL) CBC (06/07/2024 10:36 AM EDT) Pathologist [facility] WBC 3.44(L) 4.00 - 10.80 K/uL 06/07/2024 10:44 AM EDT [facility] 56 RBC 2.69 4.50 - 5.25 M/uL 06/07/2024 10:44 AM EDT [facility] 56 HGB 9.4(L) 14.0 - 16.8 g/dL 06/07/2024 10:44 AM EDT [facility] 56 HCT 28.8(L) 40.0 - 48.4 % 06/07/2024 10:44 AM EDT [facility] 56 MCV 107.1 82.0 - 99.5 fL 06/07/2024 10:44 AM EDT [facility] 56 MCH 34.9 27.0 - 34.0 pg 06/07/2024 10:44 AM EDT [facility] 56 MCHC 32.6 32.0 - 36.0 g/dL 06/07/2024 10:44 AM EDT [facility] 56 RDW 14.4 11.5 - 15.5 % 06/07/2024 10:44 AM EDT [facility] 56 PLT 128(L) 140 - 400 K/uL 06/07/2024 10:44 AM EDT [facility] 56 MPV 8.8 6.6 - 11.1 fL 06/07/2024 10:44 AM EDT [facility] 56 Blood Venous blood specimen / Unknown Venipuncture / Unknown 06/07/2024 10:36 AM EDT 06/07/2024 10:36 AM EDT Abbey Aguiar MD LAB BLOOD [facility] 56-02 [address] [place] [address] documented in this encounter Visit Diagnoses Diagnosis Multiple myeloma not having achieved remission (HCC) Multiple myeloma, without mention of having achieved remission History of colonic polyps Personal history of colonic polyps documented in this encounter Care Teams Banking Center Manager Relationship Specialty Start Date End Date Jean Claude Yao DO [address] [place] [address] PCP - General Internal Medicine 05/09/24 documented as of this encounter
--- OUTSIDE RECORDS SUMMARY | 2024-07-27 10:47 | External Medical Summary | Summary of Care ---
Author Name Unknown Organization [facility] Address [address] [facility] [place] [address] Phone [phone] Care Team Providers Care Independent Freight Agent Name Role Phone Jean Claude Yao DO Primary Care Provider [phone] Reason for Visit * Reason Onset Date Comments Precert Future 06/02/2024 Gustavo johnston Encounter Details Date Type Department Care Team (Late st Contact Info) Description 06/02/2024 Telephone Hematology/Oncology [facility] [place] 200 [facility] [place] [address] Abbey Aguiar MD 200 [facility] [place] [address] Precert Future (Gustavo ) Allergies No known [...] orders placed: Weekly CBCD,CMP , Monthly SPEP, Puako, IgG Pt will need T&S completed at [facility] prior to starting Darzalex -Medications Pended: None, already prescribed Dexamethasone, Acyclovir, and Aspirin -Hep B Labs: Completed 05/21/23 documented in this encounter Plan of Treatment Upcoming Encounters Date Type Department Care Team (Latest Contact Info) Description 06/07/2024 10:30 AM EDT Laboratory Laboratory [facility] Bhardwaj [address] [place] [phone] Pratima Kelsey [address] [place] [address] 06/08/2024 9:15 AM EDT Pharmacy Pharmacy Hematology Oncology [address] [place] [address] [facility] [place] Hem/Onc [address] [place] [facility] [place] [address] 06/13/2024 7:45 AM EDT Imaging Radiology [address] 132 [facility] [place] [address] 06/29/2024 9:00 AM EDT Office Visit Hematology/On[facility]olog [facility] [address] [place] [phone] Abbey Aguiar MD [address] [place] [address] 08/23/2024 10:00 AM EDT Office Visit Family Practice [address], [place] 293 [facility] [place] [address] Jean Claude Yao, 293 [place] [address] 09/08/2024 2:30 PM EDT Hospital Encounter ENDO [facility], Endoscopy Room [facility] [address] [place] [phone] Irving Iyer MD [address] [place] [address] 09/08/2024 2:30 PM EDT - 09/08/2024 3:00 PM EDT Surgery ENDO [facility], Endoscopy Room [facility] [address] [place] [phone] Irving Iyer MD [address] [place] [address] COLONOSCOPY FLEXIBLE PROXIMAL DIAGNOSTIC 03/13/2025 11:00 AM EDT Office Visit Sleep Disorders Ctr [facility] [address] [place] [phone] Ruma Orellana, DO [address] [place] [address] Scheduled Orders Name Type Priority Associated Diagnoses Orde r Schedule CBC WITH WBC DIFFERENTIAL Lab STAT Multiple myeloma not having achieved remission (HCC) Every Week for 52 Occurrences starting 06/02/2024 until 06/02/2025 COMPREHENSIVE METABOLIC PANEL Lab STAT Multiple myeloma not having achieved remission (HCC) Every Week for 52 Occurrences starting 06/02/2024 until 06/02/2025 SERUM FREE LIGHT CHAINS Lab STAT Multiple myeloma not having achieved remission (HCC) Every Month for 12 Occurrences starting 06/02/2024 until 06/02/2025 SERUM PROTEIN ELECTROPHORESIS REFLEX PROFILE Lab STAT Multiple myeloma not having achieved remission (HCC) Every Month for 12 Occurrences starting 06/02/2024 until 06/02/2025 IMMUNOGLOBULIN QUANTITATIVE Lab STAT Multiple myeloma not having achieved remission (HCC) Every Month for 12 Occurrences starting 06/02/2024 until 06/02/2025 TYPE AND SCREEN Lab Routine Multiple myeloma not having achieved remission (HCC) Expected: 06/02/2024, Expires: 07/01/2025 Scheduled Procedures Name Priority Associated Diagnoses Date/Ti me COLONOSCOPY FLEXIBLE PROXIMAL DIAGNOSTIC Recall History of colonic polyps 09/08/2024 2:30 PM EDT Health Maintenance Due Date Last Done Comments Cologuard 1997 Fecal Occult Blood Test 1997 Sigmoidoscopy 1997 COVID-19 Vaccine (3 - Moderna risk series) 04/19/2021 03/22/2021, 02/21/2021 Zoster Vaccines (2 of 2) 02/03/2023 12/09/2022, 1211/2011 CKD PHOS USE SMARTSET 43665 06/15/2024 06/15/2023 Colonoscopy 06/29/2024 06/29/2023, 06/16, 03/16/2023, Additional history exists Colorectal Cancer Screening 06/29/2024 Influenza Vaccine (FLU shot) (#1) 2024 08/03/2023, 08/08/2022 HbA1c 09/29/2024 03/29/2024, 120 11/2022, 06/15/2023 Depression Screening 09/30/2024 09/30/2023 GFR 11/30/2024 05/30/2024, 04/17, 04/07/2024, Additional history exists Diabetic Eye Exam 01/20/2025 01/21/2024, , 05/26/2022 Diabetic Foot Exam 04/12/2025 04/12/2024, 04/12/2024 Albumin/Creatinine Ratio 05/09/2025 024, 06/15/2023, 06/03/2022 CKD HGB USE SMARTSET 85749 05/30/202505/30, 05/30/2024, 05/27/2024, Additional history exists DTaP,Tdap,and Td Vaccines (3 [...] this encounter Medical Devices Implanted Type Area Receipt And Report Clerk Device Identifier Shelf Expiration Date Model / Serial / Lot Sureclip 16mm 235cm - [id number] Implanted:Qty: 1 on 03/16/2023 by Irving Iyer MD at OR [facility] MICRO TECH ENDOSCOPY [id number] 05/19/2025 [id number] / / [id number] Duraclip 16mm Xlg Repostn - [id number] Implanted:Qty: 1 on 03/16/2023 by Irving Iyer MD at OR [facility] [employer] [id number] 05/18/2024 [id number] / / [id number] Duraclip 16mm Xlg Repostn - [id number] Implanted:Qty: 1 on 03/16/2023 by Irving Iyer MD at OR [facility] [employer] [id number] 05/18/2024 [id number] / / [id number] Duraclip 16mm Xlg Repostn - [id number] Implanted:Qty: 1 on 03/16/2023 by Irving Iyer MD at OR [facility] [employer] [id number] 05/18/2024 [id number] / / [id number] Duraclip 16mm Xlg Repostn - [id number] Implanted:Qty: 1 on 03/16/2023 by Irving Iyer MD at OR [facility] [employer] [id number] 05/18/2024 [id number] / / [id number] Duraclip 16mm Xlg Repostn - [id number] Implanted:Qty: 1 on 03/16/2023 by Irving Iyer MD at OR [facility] [employer] [id number] 05/18/2024 [id number] / / [id number] Duraclip 16mm Xlg Repostn - [id number] Implanted:Qty: 1 on 03/16/2023 by Irving Iyer MD at OR [facility] [employer] [id number] 05/19/2024 [id number] / / [id number] Duraclip 16mm Xlg Repostn - [id number] Implanted:Qty: 1 on 03/16/2023 by Irving Iyer MD at OR [facility] [employer] [id number] 05/19/2024 [id number] / / [id number] Duraclip 16mm Xlg Repostn - [id number] Implanted:Qty: 1 on 03/16/2023 by Irving Iyer MD at OR [facility] [employer] [id number] 05/19/2024 [id number] / / [id number] Duraclip 16mm Xlg Repostn - [id number] Implanted:Qty: 1 on 03/16/2023 by Irving Iyer MD at OR [facility] [employer] [id number] 05/18/2024 [id number] / / [id number] Duraclip 16mm Xlg Repostn - [id number] Implanted:Qty: 1 on 03/16/2023 by Irving Iyer MD at OR [facility] [employer] [id number] 05/18/2024 [id number] / / [id number] Duraclip 16mm Xlg Repostn - [id number] Implanted:Qty: 1 on 03/16/2023 by Irving Iyer MD at OR [facility] [employer] [id number] 05/18/2024 [id number] / / [id number] Duraclip 16mm Xlg Repostn - [id number] Implanted:Qty: 1 on 03/16/2023 by Irving Iyer MD at OR [facility] [employer] [id number] 05/18/2024 [id number] / / [id number] Duraclip 16mm Xlg Repostn - [id number] Implanted:Qty: 1 on 03/16/2023 by Irving Iyer MD at OR [facility] [employer] [id number] 05/18/2024 [id number] / / [id number] documented as of this encounter Visit Diagnoses Diagnosis Multiple myeloma not having achieved remission (HCC)- Primary Multiple myeloma, without mention of having achieved remission History of colonic polyps Personal history of colonic polyps documented in this encounter Care Teams Independent Freight Agent Relationship Specialty Start Date End Date Jean Claude Yao DO [address] [facility] [place] [address] PCP - General Internal Medicine 05/09/24 documented as of this encounter
--- OUTSIDE RECORDS SUMMARY | 2024-07-27 10:47 | External Medical Summary | Summary of Care ---
Author Name Unknown Organization [facility] Address [address] [facility] [place] [address] Phone [phone] Care Team Providers Care Leadership Intern Name Role Phone Jean Claude Yao DO Primary Care Provider [phone] Reason for Visit * Reason Onset Date Comments Precert Future 06/02/2024 Gustavo johnston Encounter Details Date Type Department Care Team (Late st Contact Info) Description 06/02/2024 Telephone Hematology/Oncology [facility] [place] [address] [facility] [place] [address] Abbey Aguiar MD [address] [facility] [place] [address] Precert Future (Gustavo ) Allergies No known active allergiesdocumented as of this encounter (statuses as of 06/06/2024) Medications Medication Sig Dispensed Refills Start Date [...] as of this encounter (statuses as of 06/06/2024) Active Problems Problem Noted Date Diagnosed Date [...] as of this encounter (statuses as of 06/06/2024) Resolved Problems Problem Noted Date Diagnosed Date Resolved Date Prediabetes 10/26/2023 12/31/2023 Overview: Per Prediabetes protocol Hypertensive kidney disease with stage 3a chronic kidney disease 07/02/2023 03/29/2024 Lesion of pancreas 12/09/2022 documented as of this encounter (statuses as of 06/06/2024) Immunizations Name Administration Dates Next Due COVID-19 [...] encounter Miscellaneous Notes * Telephone Encounter - Daniella Zavala OSA [...] orders placed: Weekly CBCD,CMP , Monthly SPEP, [place], IgG Pt will need T&S completed at [facility] prior to starting Darzalex -Medications Pended: None, already prescribed Dexamethasone, Acyclovir, and Aspirin -Hep B Labs: Completed 05/21/23 documented in this encounter Plan of Treatment Upcoming Encounters Date Type Department Care Team (Latest Contact Info) Description 06/08/2024 9:15 AM EDT Pharmacy Pharmacy Hematology Oncology [facility] [address] [place] [address] [facility] Hem/Onc [address] [place] [address] 06/13/2024 7:45 AM EDT Imaging Radiology [facility] [facility] [address] [facility] [place] [address] 06/29/2024 9:00 AM EDT Office Visit Hematology/Oncology [facility] [place] [address] [place] [phone] Abbey Aguiar MD [address] [place] [address] 08/23/2024 10:00 AM EDT Office Visit Family Practice [address] [place] [address] [address] [place] [address] Jean Claude Yao, DO [address] [facility], [place] [address] 09/08/2024 2:30 PM EDT Hospital Encounter ENDO [facility], Endoscopy Room [facility] [address] [place] [phone] Irving Iyer MD [address] [place] [address] 09/08/2024 2:30 PM EDT - 09/08/2024 3:00 PM EDT Surgery ENDO [facility], Endoscopy Room [facility] [address] [place] [phone] Irivng Ieyr MD [address] [place] [address] COLONOSCOPY FLEXIBLE PROXIMAL DIAGNOSTIC 03/13/2025 11:00 AM EDT Office Visit Sleep Disorders Ctr [facility] [address] [place] [phone] Ruma Orellana DO [address] [place] [address] Scheduled Orders Name Type Priority Associated Diagnoses [...] 02/03/2023 12/09/2022, 1211/2011 CKD PHOS USE SMARTSET 90548 06/15/2024 06/15/2023 Colonoscopy 06/29/2024 06/29/2023, 06/16, 03/16/2023, Additional history exists Colorectal Cancer Screening 06/29/2024 Influenza Vaccine (FLU shot) (#1) 2024 08/03/2023, 08/08/2022 HbA1c 09/29/2024 03/29/2024, 1211/2022, 06/15/2023 Depression Screening 09/30/2024 09/30/2023 GFR 11/30/2024 05/30/2024, 04/17, 04/07/2024, Additional history exists Diabetic Eye Exam 01/20/2025 01/21/2024, , 05/26/2022 Diabetic Foot Exam 04/12/2025 04/12/2024, 04/12/2024 Albumin/Creatinine Ratio 05/09/2025 024, 06/15/2023, 06/03/2022 CKD HGB USE SMARTSET 57909 05/30/202505/30, 05/30/2024, 05/27/2024, Additional history exists DTaP,Tdap,and [...] this encounter Medical Devices Implanted Type Area Frame And Scrap Crusher Device Identifier Shelf Expiration Date Model / Serial / Lot Sureclip 16mm 235cm - [id number] Implanted:Qty: 1 on 03/16/2023 by Irving Iyer MD at OR [facility] MICRO TECH ENDOSCOPY [id number] 05/19/2025 [id number] / / [id number] Duraclip 16mm Xlg Repostn - [id number] Implanted:Qty: 1 on 03/16/2023 by Irving Iyer MD at OR [facility] Vitals ([email or web address]) PHILLIP [id number] 05/18/2024 [id number] / / [id number] Duraclip 16mm Xlg Repostn - [id number] Implanted:Qty: 1 on 03/16/2023 by Irving Iyer MD at OR [facility] CONMED PHILLIP [id number] 05/18/2024 [id number] / / [id number] Duraclip 16mm Xlg Repostn - [id number] Implanted:Qty: 1 on 03/16/2023 by Irving Iyer MD at OR [facility] [employer] PHILLIP [id number] 05/18/2024 [id number] / / [id number] Duraclip 16mm Xlg Repostn - [id number] Implanted:Qty: 1 on 03/16/2023 by Irving Iyer MD at OR [facility] CONMED PHILLIP [id number] 05/18/2024 [id number] / / [id number] Duraclip 16mm Xlg Repostn - [id number] Implanted:Qty: 1 on 03/16/2023 by Irving Iyer MD at OR [facility] CONMED PHILLIP [id number] 05/18/2024 [id number] / / [id number] Duraclip 16mm Xlg Repostn - [id number] Implanted:Qty: 1 on 03/16/2023 by Irving Iyer MD at OR [facility] [employer]MED PH[employer]IP [id number] 05/19/2024 [id number] / / [id number] Duraclip 16mm Xlg Repostn - [id number] Implanted:Qty: 1 on 03/16/2023 by Irving Iyer MD at OR [facility] [employer]MED PH[employer]IP [id number] 05/19/2024 [id number] / / [id number] Duraclip 16mm Xlg Repostn - [id number] Implanted:Qty: 1 on 03/16/2023 by Irving Iyer MD at OR [facility] CONMED PH[employer]IP [id number] 05/19/2024 [id number] / / [id number] Duraclip 16mm Xlg Repostn - [id number] Implanted:Qty: 1 on 03/16/2023 by Irving Iyer MD at OR [facility] CONMED PHILLIP [id number] 05/18/2024 [id number] / / [id number] Duraclip 16mm Xlg Repostn - [id number] Implanted:Qty: 1 on 03/16/2023 by Ivring Iyer MD at OR [facility] CONMED PH[employer]IP [id number] 05/18/2024 [id number] / / [id number] Duraclip 16mm Xlg Repostn - [id number] Implanted:Qty: 1 on 03/16/2023 by Irving Iyer MD at OR [facility] CONMED PHILLIP [id number] 05/18/2024 [id number] / / [id number] Duraclip 16mm Xlg Repostn - [id number] Implanted:Qty: 1 on 03/16/2023 by Irving Iyer MD at OR [facility] CONMED PH[employer]IP [id number] 05/18/2024 [id number] / / [id number] Duraclip 16mm Xlg Repostn - [id number] Implanted:Qty: 1 on 03/16/2023 by Irving Iyer MD at OR [facility] CONMED PH[employer]IP [id number] 05/18/2024 [id number] / / [id number] documented as of this encounter Visit Diagnoses Diagnosis Multiple myeloma not having achieved remission (HCC)- Primary Multiple myeloma, without mention of having achieved remission History of colonic polyps Personal history of colonic polyps documented in this encounter Care Teams Leadership Intern Relationship Specialty Start Date End Date Jean Claude Yao DO [address] [facility] [place] [address] PCP - General Internal Medicine 05/09/24 documented as of this encounter
--- OUTSIDE RECORDS SUMMARY | 2024-07-27 10:47 | External Medical Summary ---
Author Name Unknown Address Unknown Organization K01:[facility] [place] [address] [facility] [address] Laboratory Report Ordering Provider Test Date Status CARLENE PEREZ 06/07/2024 10:36:34 Final Observation Date Value Abnormality Reference (Units) Status PARAPROTEIN NORMAL/ABNORMAL 06/07/2024 10:36:34 Abnormal Abnormal Normal Final Protein 06/07/2024 10:36:34 7.7 6.0-8.3 (g/dL) Final Albumin/Protein.total [Pure mass fraction] in Serum or Plasma by Electrophoresis 06/07/2024 10:36:34 3.00 Below low normal 3.30-4.40 (g/dL) Final Alpha 1 globulin/Protein.tota l [Pure mass fraction] in Serum or Plasma by Electrophoresis 06/07/2024 10:36:34 0.18 0.10-0.30 (g/dL) Final Alpha 2 globulin/Protein.tota l [Pure mass fraction] in Serum or Plasma by Electrophoresis 06/07/2024 10:36:34 0.88 0.60-1.00 (g/dL) Final Beta globulin/Protein.tota l [Pure mass fraction] in Serum or Plasma by Electrophoresis 06/07/2024 10:36:34 0.91 0.80-1.30 (g/dL) Final Gamma globulin/Protein.tota l [Pure mass fraction] in Serum or Plasma by Electrophoresis 06/07/2024 10:36:34 2.53 Above high normal 0.70-1.70 (g/dL) Final Monoclonal protein 06/07/2024 10:36:34 2.31 (g/dL) Final Protein Fractions [Interpretation] in Serum or Plasma by Electrophoresis Narrative 06/07/2024 10:36:34 Abnormal. 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 Final Performing Location LABORATORY C - [address] [facility] [address]
--- OUTSIDE RECORDS SUMMARY | 2024-07-27 10:47 | External Medical Summary ---
Author Name Unknown Address Unknown Organization K01:[facility] [place] - [facility] [place] [address] Laboratory Report Ordering Provider Test Date Status CARLENE PEREZ 06/07/2024 10:36:34 Final Observation Date Value Abnormality Reference (Units ) Status [place] light chains, Free, Serum 06/07/2024 10:36:34 8.62 3.30-19.40 (mg/L) Final Lambda light chains, free, Serum 06/07/2024 10:36:34 641.50 Above high normal 5.71-26.30 (mg/L) Final KAPPA LAMBDA FLC RATIO 06/07/2024 10:36:34 0.01 Below low normal 0.26-1.65 Final Performing Location LABORATORY [facility] - [address] [place] [address]
--- OUTSIDE RECORDS SUMMARY | 2024-07-27 10:47 | External Medical Summary ---
Author Name Unknown Address Unknown Organization K09:[facility]ATORY [facility] [address] [place] [address] Laboratory Report Ordering Provider Test Date Status CARLENE PEREZ 06/07/2024 10:36:34 Final Observation Date Value Abnormality Reference (Units ) Status BUN 06/07/2024 10:36:34 26 Above high normal 6-20 (mg/dL) Final Creatinine 06/07/2024 10:36:34 1.5 Above high normal 0.6-1.2 (mg/dL) Final Glomerular filtration rate/1.73 sq M.predicted [Volume Rate/Area] in Serum, Plasma or Blood by Creatinine-based formula (CKD-EPI) 06/07/2024 10:36:34 51 Below low normal >=60 (mL/min) Final eGFR is calculated based on the CKD-EPI 2020 equation. Sodium 06/07/2024 10:36:34 139 135-146 (m mol/L) Final Potassium 06/07/2024 10:36:34 3.6 3.5-5.1 (m mol/L) Final Cl 06/07/2024 10:36:34 106 98-107 (mm ol/L) Final CO2 06/07/2024 10:36:34 22 22-32 (mmo l/L) Final Anion gap 06/07/2024 10:36:34 11 7-15 (mmol /L) Final Glucose 06/07/2024 10:36:34 117 70-120 (mg /dL) Final Albumin 06/07/2024 10:36:34 3.3 Below low normal 3.8 -5.0 (g/dL) Final AST (Aspartate aminotransferase) 06/07/2024 10:36:34 11 10-50 (U/L) Fin al Alk Phos 06/07/2024 10:36:34 66 35-130 (U/ L) Final Bilirubin, Total 06/07/2024 10:36:34 0.4 <=1 .2 (mg/dL) Final Calcium 06/07/2024 10:36:34 8.4 8.4-10.2 ( mg/dL) Final Protein 06/07/2024 10:36:34 8.2 6.0-8.3 (g /dL) Final ALT (Alanine aminotransferase) 06/07/2024 10:36:34 12 10-50 (U/L) Toby pruett Performing Location LABORATORY [place] [place] [address] [place] [address]
--- OUTSIDE RECORDS SUMMARY | 2024-07-27 10:47 | External Medical Summary | Summary of Care ---
Author Name Unknown Organization [facility] Address [address] [place] [facility] [place] [address] Phone [phone] Care Team Providers Care Construction Superintendent Name Role Phone Jean Claude Yao DO Primary Care Provider [phone] Reason for Visit * Reason Onset Date Comments Precert Future 06/02/2024 Gustavo Encounter Details Date Type Department Care Team (Late st Contact Info) Description 06/02/2024 Telephone Hematology/Oncology [facility] [place] [address] [facility] [place] [address] Abbey Aguiar MD [address] [facility] [place] [address] Precert Future (DaraV ) Allergies No known [...] approve" Precert: please re-submit for auth- Dr Aguira aware that this will be denied and [...] orders placed: Weekly CBCD,CMP , Monthly SPEP, [place], IgG Pt will need T&S completed at [facility] prior to starting Darzalex -Medications Pended: None, already prescribed Dexamethasone, Acyclovir, and Aspirin -Hep B Labs: Completed 05/21/23 documented in this encounter Plan of Treatment Upcoming Encounters Date Type Department Care Team (Latest Contact Info) Description 06/08/2024 9:15 AM EDT Pharmacy Pharmacy Hematology Oncology [facility] [address] [place] [address] [facility] Clinic Hem/Onc [address] [place] [address] 06/13/2024 7:45 AM EDT Imaging Radiology [address] [place] [address] 06/29/2024 9:00 AM EDT Office Visit Hematology/Oncology [facility] [place] [address] [place] [phone] Abbey Aguiar MD [address] [place] [address] 08/23/2024 10:00 AM EDT Office Visit Family Practice [address] [place] [address] [address] [place] [phone] Jean Claude Yao, DO [address] [place] [address] 09/08/2024 2:30 PM EDT Hospital Encounter ENDO [facility], Endoscopy Room [facility] [address] [place] [phone] Irving Iyer MD [address] [place] [address] 09/08/2024 2:30 PM EDT - 09/08/2024 3:00 PM EDT Surgery ENDO [facility], Endoscopy Room [facility] [address] [place] [phone] Irving Iyer MD [address] [place] [address] COLONOSCOPY FLEXIBLE PROXIMAL DIAGNOSTIC 03/13/2025 11:00 AM EDT Office Visit Sleep Disorders Ctr [facility] [address] [place] [phone] Ruma Orellana DO [address] [place] [address] Scheduled Orders Name Type Priority Associated Diagnoses [...] 02/03/2023 12/09/2022, 12/11/2011 CKD PHOS USE SMARTSET 52157 06/15/2024 06/15/2023 Colonoscopy 06/29/2024 06/29/2023, 06/16, 03/16/2023, Additional history exists Colorectal Cancer Screening 06/29/2024 Influenza Vaccine (FLU shot) (#1) 2024 08/03/2023, 08/08/2022 HbA1c 09/29/2024 03/29/2024, 1211/2022, 06/15/2023 Depression Screening 09/30/2024 09/30/2023 GFR 11/30/2024 05/30/2024, 04/17, 04/07/2024, Additional history exists Diabetic Eye Exam 01/20/2025 01/21/2024, , 05/26/2022 Diabetic Foot Exam 04/12/2025 04/12/2024, 04/12/2024 Albumin/Creatinine Ratio 05/09/2025 024, 06/15/2023, 06/03/2022 CKD HGB USE SMARTSET 05208 05/30/202505/30, 05/30/2024, 05/27/2024, Additional history exists DTaP,Tdap,and Td Vaccines (3 - Td or Tdap) 04/07/2034 04/07/2024, 04/18/2015 Pneumococcal Vaccine: 65+ Years Completed 01/12/2019, 12/15/2017 *BASELINE EKG FOR HTN Completed 12/09/2022 AAA Screening Completed 02/21/2023, 02/0 12/2022, 08/01/2022, [...] this encounter Medical Devices Implanted Type Area Gang Tailer Device Identifier Shelf Expiration Date Model / Serial / Lot Sureclip 16mm 235cm - [id number] Implanted:Qty: 1 on 03/16/2023 by Irving Iyer MD at OR [facility] MICRO TECH ENDOSCOPY [id number] 05/19/2025 [id number] / / [id number] Duraclip 16mm Xlg Repostn - [id number] Implanted:Qty: 1 on 03/16/2023 by Irving Iyer MD at OR [facility] CONMED PH[employer]IP [id number] 05/18/2024 [id number] / / [id number] Duraclip 16mm Xlg Repostn - [id number] Implanted:Qty: 1 on 03/16/2023 by Irving Iyer MD at OR [facility] [employer]IP [id number] 05/18/2024 [id number] / / [id number] Duraclip 16mm Xlg Repostn - [id number] Implanted:Qty: 1 on 03/16/2023 by Irving Iyer MD at OR [facility] [employer]IP [id number] 05/18/2024 [id number] / / [id number] Duraclip 16mm Xlg Repostn - [id number] Implanted:Qty: 1 on 03/16/2023 by Irving Iyer MD at OR [facility] [employer] [id number] 05/18/2024 [id number] / / [id number] Duraclip 16mm Xlg Repostn - [id number] Implanted:Qty: 1 on 03/16/2023 by Irving Iyer MD at OR [facility] [employer] PH[employer]IP [id number] 05/18/2024 [id number] / / [id number] Duraclip 16mm Xlg Repostn - [id number] Implanted:Qty: 1 on 03/16/2023 by Irving Iyer MD at OR [facility] [employer]IP [id number] 05/19/2024 [id number] / / [id number] Duraclip 16mm Xlg Repostn - [id number] Implanted:Qty: 1 on 03/16/2023 by Irving Iyer MD at OR [facility] [employer]IP [id number] 05/19/2024 [id number] / / [id number] Duraclip 16mm Xlg Repostn - [id number] Implanted:Qty: 1 on 03/16/2023 by Irving Iyer MD at OR [facility] [employer]IP [id number] 05/19/2024 [id number] / / [id number] Duraclip 16mm Xlg Repostn - [id number] Implanted:Qty: 1 on 03/16/2023 by Irving Iyer MD at OR [facility] [employer]IP [id number] 05/18/2024 [id number] / / [id number] Duraclip 16mm Xlg Repostn - [id number] Implanted:Qty: 1 on 03/16/2023 by Irving Iyer MD at OR [facility] [employer]IP [id number] 05/18/2024 [id number] / / [id number] Duraclip 16mm Xlg Repostn - [id number] Implanted:Qty: 1 on 03/16/2023 by Irving Iyer MD at OR [facility] [employer] [id number] 05/18/2024 [id number] / / [id number] Duraclip 16mm Xlg Repostn - [id number] Implanted:Qty: 1 on 03/16/2023 by Irving Iyer MD at OR [facility] [place] PHILLIP [id number] 05/18/2024 [id number] / / [id number] Duraclip 16mm Xlg Repostn - [id number] Implanted:Qty: 1 on 03/16/2023 by Irving Iyer MD at OR [facility] [place] PHILLIP [id number] 05/18/2024 [id number] / / [id number] documented as of this encounter Visit Diagnoses Diagnosis Multiple myeloma not having achieved remission (HCC)- Primary Multiple myeloma, without mention of having achieved remission History of colonic polyps Personal history of colonic polyps documented in this encounter Care Teams Construction Superintendent Relationship Specialty Start Date End Date Jean Claude Yao DO [address] [place] [address] PCP - General Internal Medicine 05/09/24 documented as of this encounter
--- OUTSIDE RECORDS SUMMARY | 2024-07-27 10:47 | External Medical Summary | Summary of Care ---
Author Name Unknown Organization [facility] Address [address] [place] [address] Phone [phone] Care Team Providers Care Binder Cutter Hand Name Role Phone Jean Claude Yao DO Primary Care Provider Encounter Details Date Type Department Care Team (Late st Contact Info) Description 06/06/2024 Telephone Hematology/Oncology, [facility] [address] [place] [address] Abbey Aguiar MD [address] [facility] [place] [address] Allergies No known active allergiesdocumented as of [...] Miscellaneous Notes * Telephone Encounter - Kristin Borrero PHARM Tech - 06/06/2024 3:23 PM EDT Update: lenalidomide was dispensed 06/03/2024. Next refill has been scheduled for 06/20/24 - 21 day cycle. MEENAKSHI Londono [employer] Trainee Hematology Oncology Oral Chemotherapy Clinic Medication Therapy Disease Management [facility] 06/06/24,3:26 PM Time Spent on Encounter: < 5 minutes documented in this encounter Plan of Treatment Upcoming Encounters Date Type Department Care Team (Latest Contact Info) Description 06/08/2024 9:15 AM EDT Pharmacy Pharmacy Hematology Oncology [facility] [address] [facility] [address] [facility], [facility] Clinic Hem/Onc [address] [facility] [place] [address] 06/13/2024 7:45 AM EDT Imaging Radiology [facility] [facility] [address] [facility] [place] [address] 06/29/2024 9:00 AM EDT Office Visit Hematology/Oncology [facility] [place] [address] [place] [phone] Abbey Aguiar MD [address] [place] [address] 08/23/2024 10:00 AM EDT Office Visit Family Practice [address] [facility] [place] [address] [place] [address] Jean Claude Yao, DO [address] [facility] [place] [address] 09/08/2024 2:30 PM EDT Hospital Encounter ENDO [facility], Endoscopy Room [facility] [address] [place] [id number] Irving Iyer MD [address] [place] [address] 09/08/2024 2:30 PM EDT - 09/08/2024 3:00 PM EDT Surgery ENDO [facility], Endoscopy Room [facility] [address] [place] [phone] Irving Iyer MD [address] [place] [address] COLONOSCOPY FLEXIBLE PROXIMAL DIAGNOSTIC 03/13/2025 11:00 AM EDT Office Visit Sleep Disorders [facility] [address] [place] [phone] Ruma Orellana DO [address] [place] [address] Scheduled Procedures Name Priority Associated Diagnoses Date/Ti me COLONOSCOPY FLEXIBLE PROXIMAL DIAGNOSTIC Recall History of colonic polyps 09/08/2024 2:30 PM EDT Health Maintenance Due Date Last Done Comments Cologuard 1997 Fecal Occult Blood Test 1997 Sigmoidoscopy 1997 COVID-19 Vaccine (3 - Moderna risk series) 04/19/2021 03/22/2021, 02/21/2021 Zoster Vaccines (2 of 2) 02/03/2023 12/09/2022, 11/2011 CKD PHOS USE SMARTSET 17966 06/15/2024 06/15/2023 Colonoscopy 06/29/2024 06/29/2023, 06/16, 03/16/2023, Additional history exists Colorectal Cancer Screening 06/29/2024 Influenza Vaccine (FLU shot) (#1) 2024 08/03/2023, 08/08/2022 HbA1c 09/29/2024 03/29/2024, 11/2022, 06/15/2023 Depression Screening 09/30/2024 09/30/2023 GFR 11/30/2024 05/30/2024, 04/17, 04/07/2024, Additional history exists Diabetic Eye Exam 01/20/2025 01/21/2024, , 05/26/2022 Diabetic Foot Exam 04/12/2025 04/12/2024, 04/12/2024 Albumin/Creatinine Ratio 05/09/2025 024, 06/15/2023, 06/03/2022 CKD HGB USE SMARTSET 25866 05/30/202505/30, 05/30/2024, 05/27/2024, Additional history exists DTaP,Tdap,and [...] this encounter Medical Devices Implanted Type Area [employer] Intervention [employer] Psychologist Device Identifier Shelf Expiration Date Model / Serial / Lot Sureclip 16mm 235cm - [id number] Implanted:Qty: 1 on 03/16/2023 by Irving Iyer MD at OR [facility] [employer] ENDOSCOPY [id number] 05/19/2025 [id number] / / [id number] Duraclip 16mm Xlg Repostn - [id number] Implanted:Qty: 1 on 03/16/2023 by Irving Iyer MD at OR [facility] [employer] [id number] 05/18/2024 [id number] / / [id number] Duraclip 16mm Xlg Repostn - [id number] Implanted:Qty: 1 on 03/16/2023 by Irving Iyer MD at OR [facility] [employer] [id number] 05/18/2024 [id number] / / [id number] Duraclip 16mm Xlg Repostn - [id number] Implanted:Qty: 1 on 03/16/2023 by Irving Iyer MD at OR [facility] [employer] [id number] 05/18/2024 [id number] / / [id number] Duraclip 16mm Xlg Repostn - [id number] Implanted:Qty: 1 on 03/16/2023 by Irving Iyer MD at OR [facility] [employer] [id number] 05/18/2024 [id number] / / [id number] Duraclip 16mm Xlg Repostn - [id number] Implanted:Qty: 1 on 03/16/2023 by Irving Iyer MD at OR [facility] [employer] [id number] 05/18/2024 [id number] / / [id number] Duraclip 16mm Xlg Repostn - [id number] Implanted:Qty: 1 on 03/16/2023 by Irving Iyer MD at OR [facility] [employer] [id number] 05/19/2024 [id number] / / [id number] Duraclip 16mm Xlg Repostn - [id number] Implanted:Qty: 1 on 03/16/2023 by Irving Iyer MD at OR [facility] [employer] [id number] 05/19/2024 [id number] / / [id number] Duraclip 16mm Xlg Repostn - [id number] Implanted:Qty: 1 on 03/16/2023 by Irving Iyer MD at OR [facility] [employer] [id number] 05/19/2024 [id number] / / [id number] Duraclip 16mm Xlg Repostn - [id number] Implanted:Qty: 1 on 03/16/2023 by Irving Iyer MD at OR [facility] [employer] [id number] 05/18/2024 [id number] / / [id number] Duraclip 16mm Xlg Repostn - [id number] Implanted:Qty: 1 on 03/16/2023 by Irving Iyer MD at OR [facility] [employer] [id number] 05/18/2024 [id number] / / [id number] Duraclip 16mm Xlg Repostn - [id number] Implanted:Qty: 1 on 03/16/2023 by Irving Iyer MD at OR [facility] [employer] [id number] 05/18/2024 [id number] / / [id number] Duraclip 16mm Xlg Repostn - [id number] Implanted:Qty: 1 on 03/16/2023 by Irving Iyer MD at OR [facility] [employer] [id number] 05/18/2024 [id number] / / [id number] Duraclip 16mm Xlg Repostn - [id number] Implanted:Qty: 1 on 03/16/2023 by Irving Iyer MD at OR [facility] [employer] [id number] 05/18/2024 [id number] / / [id number] documented as of this encounter Visit Diagnoses Diagnosis 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
--- OUTSIDE RECORDS SUMMARY | 2024-07-27 10:49 | External Medical Summary ---
Author Name Unknown Address Unknown Organization K01:[facility]ATORY [facility] - [address] [place] [address] Laboratory Report Ordering Provider Test Date Status CARLENE PEREZ 05/27/2024 11:15:00 Final Observation Date Value Abnormality Reference (Units ) Status BONE MARROW FOR FLOW CYTOMETRY 05/27/2024 11:15:00 No Final Performing Location LABORATORY [facility] - [address] [place] [address]
--- OUTSIDE RECORDS SUMMARY | 2024-07-27 10:49 | External Medical Summary ---
Author Name Unknown Address Unknown Organization K01:LABORATORY [facility] - [address] [place] [address] Laboratory Report Ordering Provider Test Date Status CARLENE PEREZ 05/27/2024 11:15:00 Final Observation Date Value Abnormality Reference (Units ) Status REFERENCE LAB SCANNED REPORT 05/27/2024 11:15:00 See Scanned Report Final Performing Location [facility] - [address] [place] [address]
--- OUTSIDE RECORDS SUMMARY | 2024-07-27 10:49 | External Medical Summary ---
Author Name Unknown Address Unknown Organization : Laboratory Report Ordering Provider Test Date Status CARLENE PEREZ 05/27/2024 11:15:00 Final Observation Date Value Abnormality Reference (Units) Status BONE MARROW COLLECTION 05/27/2024 11:15:00 Sent to [employer] Final Performing Location
--- OUTSIDE RECORDS SUMMARY | 2024-07-27 10:50 | External Medical Summary ---
Author Name Unknown Address Unknown Organization K01:LABORATORY [facility] - [address] [place] [address] Laboratory Report Ordering Provider Test Date Status KEI,DURA 05/09/2024 13:20:04 Final Normal: <30 mg/g creatinine< br/>High: 30-300 mg/g creatinine
Very High: >300 mg/g creatinine
Nephrotic: >2200 mg/g creatinine Observation Date Value Abnormality Reference (Units ) Status Albumin, Urine 05/09/2024 13:20:04 11.51 (mg/dL) Final Creatinine, Urine 05/09/2024 13:20:04 80 (mg/dL) Final Albumin/Creatinine [Mass Ratio] in Urine 05/09/2024 13:20:04 144 Above high normal <30 (mg/g Creat) Final Performing Location LABORATORY [facility] - [address] [place] [address]
--- NOTE | 2024-07-27 11:00 | CT Scan Report ---
CT ANGIOGRAPHY OF THE CHEST, PULMONARY EMBOLUS PROTOCOL CLINICAL HISTORY: Chest pain. Evaluate for pulmonary embolus. COMPARISON STUDY: Chest radiograph performed earlier today. TECHNIQUE: Following IV administration of 120 mL of Optiray, helical axial images of the chest were o btained utilizing the pulmonary embolus protocol. Maximal intensity projections and sagittal and cor onal reformats were viewed on an independent 3D workstation. IV contrast was administered without co mplication. Automated exposure control was utilized for the study. A dose lowering technique was ut ilized adhering to the principles of ALARA. CT DOSE: 2061.36 mGy.cm FINDINGS: No pulmonary emboli are identified. There is no thoracic aortic dissection. Size of the he art is normal. There is no pericardial effusion. There is mild dilatation of the aortic arch measurin g 3.7 cm. No pneumothorax or pleural effusion is present. There is no thoracic lymphadenopathy. There is no consolidation to suggest pneumonia. Linear densities representing atelectasis or scarring. The re are no suspicious pulmonary nodules. No acute fractures within the bony thorax are present. The ab domen and pelvis CT will be reported separately. IMPRESSION: 1. No pulmonary emboli identified. 2. No acute intrathoracic findings. ACT 112: Negative or not required by law. Electronically signed by: Thad Franco M.D. 07/27/2024 10:58 AM
--- NOTE | 2024-07-27 11:17 | CT Scan Report ---
CT abd pelvis IV con only CLINICAL HISTORY: lower abd pain and back pain TECHNIQUE: Helical axial images of the abdomen and pelvis were obtained and displayed. Automated dose lowering techniques and/or adjustment according to patient size were utilized for this exam. This e xam was performed with intravenous contrast. COMPARISON: None available at the time of this dictation. FINDINGS: Lower chest: Bibasilar atelectasis versus scarring is seen. Liver: Hepatic steatosis is noted. A few hypodensities are favored to represent cysts but are too sma ll to characterize. Gallbladder and biliary tree: Eccentric prominences of the gallbladder wall in the posterior and dist al aspect may represent cholesterol cysts. No intra- or extrahepatic biliary ductal dilation. Pancreas: Unremarkable, no focal lesions. Spleen: Unremarkable. Adrenals: Unremarkable. Kidneys and ureters: Renal cysts are seen. Bladder: Unremarkable. Reproductive organs: Unremarkable. Bowel: The appendix is normal. There is underdistention of the descending and sigmoid colon with mild prominence of the wall. Lymph nodes Retroperitoneal: Unremarkable. Pelvic: Unremarkable. Mesenteric: Unremarkable. Peritoneum: Normal. Vessels: Atherosclerotic calcifications are seen. Abdominal wall: Unremarkable. Bones: Degenerative changes in the visualized spine. IMPRESSION: No acute abnormalities are definitely seen to suggest lower abdominal pain and back pain. Minimal pro minence of the descending colonic wall is likely due to underdistention however clinical correlation is recommended to exclude very mild infectious/inflammatory colitis. ACT 112: Negative or not required by law. Electronically signed by: Wale Bunn M.D. 07/27/2024 11:15 AM
[2024-07-27] MEDS: hydrALAZINE HCL 20 MG/ML VIAL IV STA (12:16)
--- NOTE | 2024-07-27 12:47 | History & Physical Report ---
Date of Service July 27, 2024 Assessment & Plan (1) Chest pain: (2) Hypertensive urgency: Plan: Patient is 74 year old male with PMH DM II, HTN, CKD III, RANDOLPH, multiple myeloma currently receiving treatment presented to ER with c/o chest pain, low back pain x 1 day. In ER afebrile, BP: 196/100, no tachycardia or hypoxia CXR: no acute process Initial troponin negative, EKG without acute ST elevation CTA chest without PE In ER given 1L NSS, hydralazine 10mg IV Repeat BP: 193/94, P: 75 DDx: ACS, cardiomyopathy, CP from hypertension, ?med side effect from antineoplastic meds. Possible hypertensive secondary to underlying pain as well Currently denies CP or SOB Monitor Vitals, monitor on telemetry In past patient on losartan 25mg however not been on for year as was having hypotension on Revlimid Will restart losartan 50mg daily. Monitor BP. May need to add additional agents Repeat EKG in am Will trend troponin Echo Lipid panel in am In ER given aspirin 324mg Elevated D-dimer D-dimer: 2640 CTA chest negative for PE Obtain BLE venous doppler to r/o DVT (3) Lumbar back pain: Plan: C/O lower lumbar pain x 1 day without radiculopathy symptoms In ER given Toradol 10mg IV and Morphine 4mg IV Tylenol, oxycodone and morphine prn pain Will try to avoid NSAIDs with CKD history Obtain MRI lumbar spine to r/o fracture, lytic lesions 06/13/2024 PET scan: Diffusely increased uptake of the T8 vertebral body with associated mild height loss as compared with prior PET/CT on 01/20/2023, likely representing chronic compression fracture (4) Abnormal CT of the abdomen: Plan: Reported mid abdominal discomfort. Denies N/V. 2 loose stools over past 3 days. No BM today CT abd/pelvis: No acute abnormalities are definitely seen to suggest lower abdominal pain and back pain. Minimal prominence of the descending colonic wall is likely due to underdistention however clinical correlation is recommended to exclude very mild infectious/inflammatory colitis. Asymmetric prominence of the distal and posterior gallbladder wall likely represents cholesterol cysts rather than acute cholecystitis. Clinical correlation is recommended and if not previously evaluated a nonemergent ultrasound can be performed. 02/21/23 MRI abdomen: Stable small subcapsular lesion in the left hepatic lobe measuring 1.3 cm which may be a hemangioma. Stable small oval-shaped hypoenhancing lesion in the right hepatic lobe measuring 0.8 x 1.7 cm, stable cystic changes of the gallbladder wall which may be secondary to gallbladder adenomyomatosis, stable mild wall thickening of gallbladder at the gallbladder fundus, stable tiny cystic lesion neck of the pancreas, lobular colonic mass at hepatic flexure measuring 3.1 x 4.6 cm, may be malignant, further evaluation with colonoscopy suggested Appears these gallbladder cysts are not new. Patient not having RUQ pain and low suspicion for acute cholecystitis. LFTs and lipase WNL. UA negative Denies any current abdominal pain Liquid diet (5) Multiple myeloma: Plan: Pancytopenia WBC: 2.7 (was 6.3 on 07/25/24), H/H: 10.5/30, Plt: 62 (was 90 on 07/25/24) Denies any bleeding Pancytopenia likely worsen from recent antineoplastic agents Monitor CBC Patient had second treatment on 07/25/24 with Velcade, Darzalex Faspro, Decadron. Revlimid was also restarted every 2 days with last dose om 07/26/24. Following with Dr Aguiar (6) Prediabetes: Plan: A1c: 5.8 on 03/29/24 Elevated BSG since being on steroids. Home regimen of glipizide once week on day of treatment with dexamethasone Random glucose: 121 Monitor am glucose A1c in am (7) CKD (chronic kidney disease), stage III: Plan: Cr: 1.1. Baseline ~1.3-1.4 Avoid nephrotoxic agents when possible (8) RANDOLPH (obstructive sleep apnea): Plan: CPAP HS DVT Prophylaxis SCDs given thrombocytopenia Admit med tele Full Code as per discussion with pt Follows with Dr Yao for routine care Pt was seen and care coordinated with Dr Cuenca. See addendum I spent a total of 79 minutes reviewing notes, outpatient records, labs, me dication, coordinating, documenting and providing care for this patient excluding time spent in the performance of separately billed services. History of Present Illness Chief Complaint: chest pain, back pain Primary Care Provider: Jean Claude Yao DO Patient is 74 year old male with PMH DM II, HTN, CKD III, RANDOLPH, multiple myeloma currently receiving treatment presented to ER with c/o chest pain, low back pain x 1 day. History obtained from patient, patient's as well as outpatient chart review. Patient had second treatment on 07/25/24 with Velcade, Darzalex Faspro, Decadron. Revlimid was also restarted every 2 days. He states tolerated his first round without any symptoms. States his 2nd treatment was held because of low BP but was able to get on 07/25/24. Reports his Revlimid has been on hold and restarted on 07/24/24, last dose was 07/26/24. He states yesterday started with low back pain he describes as dull and non-radiating. Aggravated with some movement or prolonged sitting. Denies LE pain or paresthesias, lose control of bowel/bladder or saddle paresthesias. Denies fall or known injury. No known bony lesions in past, but last PET scan showed possible compression fracture T8 in which patient states has not had any back pain. He also states yesterday morning started with chest discomfort described as pressure to mid chest that is aggravated with movement and he also feels SOB. Currently in ER denies any SOB or CP but reports low back pain. He tried Tylenol at home without much relief. He states last BM was yesterday morning and states had loose BM yesterday and one loose BM the day before. He also reports had some mid abdominal discomfort which he also feels has improved today. Denies nausea or vomiting. Patient states had prior history of HTN however has been off losartan for past year since was on Revlimid and it caused hypotension. Denies fever/chills, diaphoresis, BOOKER, dizziness, syncope, vision changes, neck pain, orthopnea, palpitations, cough, sore throat, otalgia, rhinorrhea, paresthesias, extremity weakness, extremity edema, rashes, urinary symptoms. Per outpatient chart review: 06/29/2023 colonoscopy: Poor colon preparation, tattoo seen in ascending colon, post colectomy scar was found at tattoo site, two 8 mm polyps in ascending colon removed, nonbleeding internal hemorrhoids 06/29/2023: Biopsy ascending colon scar: Benign colonic mucosa with mild inflammation, focal hyperplastic and reactive change, no evidence of dysplasia. Biopsy ascending colon polyp: Tubular adenoma Allergies Allergy/AdvReac Type Severity Reaction Status Date / Time No Known Allergies Allergy Verified 04/01/24 21:22 Home Medications Medication Instructions Recorded Confirmed Type acyclovir 400 mg tablet 400 mg PO BID 07/27/24 07/27/24 History dexamethasone 4 mg tablet 4 mg PO UD 07/27/24 07/27/24 History glipizide 2.5 mg tablet, extended 2.5 - 5 mg PO UD 07/27/24 07/27/24 History release 24 hr lenalidomide 10 mg capsule 10 mg PO Q2D 07/27/24 07/27/24 History Past Med/Surg History Problem List (Updated 07/27/24 @ 14:58 by Asuncion Tucker PA-C) Abnormal CT of the abdomen Lumbar back pain Hypertensive urgency Chest pain HTN (hypertension) RANDOLPH (obstructive sleep apnea) Multiple myeloma Prediabetes CKD (chronic kidney disease), stage III Surgical History (Updated 07/27/24 @ 14:55 by Asuncion Tucker PA-C) History of bone marrow biopsy History of colonoscopy Family History (Updated 07/27/24 @ 14:56 by Asuncion Tucker PA-C) Sister Cancer Father COPD (chronic obstructive pulmonary disease) Social History (Updated 07/27/24 @ 14:56 by Asuncion Tucker PA-C) Smoking Status: Former smoker Hx Alcohol Use: Yes Alcohol Intake Frequency: Monthly or Less Hx Substance Use: No Preferred Language: Thai Feels Safe at Home: Yes Review of Systems Review of Systems: All systems reviewed & are unremarkable except as noted in HPI & below Physical Exam Physical Exam: General: appears in mild distress secondary to back pain, WDWN Head: normocephalic, atraumatic Eyes: conjunctiva non-injected, anicteric ENT: normal inspection external ears, nose, mucous membranes moist Neck: supple, trachea midline, non-tender to palpation Lungs: clear, no respiratory distress, no wheezing/rhonchi/rales CV: RRR, no murmur, no pretibial edema Abd: normal BS, soft, non-tender to palpation at this time Back: no spinous process tenderness to palpation, no skin discoloration Ext: no cyanosis, no calf tenderness Neuro: A&O x 3, no focal deficits noted, normal affect Skin: warm, dry Results & Data Results & Data Vital Signs (Past 12 Hours) Vital Signs Temp Pulse Pulse Resp BP BP Pulse Ox 07/27/24 11:00 65 18 184/102 H 97 07/27/24 09:27 36.4 C L 61 19 182/111 H 97 07/27/24 09:27 61 19 97 07/27/24 09:22 66 07/27/24 08:55 36.4 C L 69 20 196/100 H 96 O2 Del Method 07/27/24 11:00 Room Air 07/27/24 09:27 Room Air 07/27/24 09:27 Room Air 07/27/24 09:22 07/27/24 08:55 Room Air Laboratory Results Short CBC 07/27/24 Range/Units 09:19 WBC 2.70 L (4.8-10.8) K/ul Hgb 10.5 L (14.0-18.0) g/dl Hct 30.7 L (42.0-52.0) % Plt Count 62 L (130-400) K/uL BMP 07/27/24 09:19 Sodium 138 Potassium 3.9 Chloride 106 Carbon Dioxide 26 BUN 18 Creatinine 1.12 Glucose 121 H Calcium 8.5 L Liver Function 07/27/24 Range/Units 09:19 Total Bilirubin 0.7 (0.2-1.0) mg/dl AST 22 (13-39) U/L ALT 19 (7-52) U/L Alkaline Phosphatase 67 (34-104) U/L Albumin 3.7 (3.4-5.0) gm/dl Urine 07/27/24 Range/Units 10:15 Urine Color Yellow Urine Appearance Clear (Clear) Urine pH 5.5 (4.5-7.5) Ur Specific Harmony 1.010 (1.000-1.030) Urine Protein 1+ H (Negative) Urine Glucose (UA) Negative (Negative) Diagnostic Findings Chest X-Ray 07/27/24 09:09 XR chest 1V portable HISTORY: Chest pain, nonspecific COMPARISON: None. FINDINGS: The lungs are clear. Cardiac silhouette is normal in size. No pleural effusions. No pneumothorax. IMPRESSION: No acute process. ACT 112: Negative or not required by law. Electronically signed by: Kiran Capellan M.D. 07/27/2024 9:51 AM Abdomen/Pelvis CT 07/27/24 10:27 CT abd pelvis IV con only CLINICAL HISTORY: lower abd pain and back pain TECHNIQUE: Helical axial images of the abdomen and pelvis were obtained and displayed. Automated dose lowering techniques and/or adjustment according to patient size were utilized for this exam. This exam was performed with intravenous contrast. COMPARISON: None available at the time of this dictation. FINDINGS: Lower chest: Bibasilar atelectasis versus scarring is seen. Liver: Hepatic steatosis is noted. A few hypodensities are favored to represent cysts but are too small to characterize. Gallbladder and biliary tree: Eccentric prominences of the gallbladder wall in the posterior and distal aspect may represent cholesterol cysts. No intra- or extrahepatic biliary ductal dilation. Pancreas: Unremarkable, no focal lesions. Spleen: Unremarkable. Adrenals: Unremarkable. Kidneys and ureters: Renal cysts are seen. Bladder: Unremarkable. Reproductive organs: Unremarkable. Bowel: The appendix is normal. There is underdistention of the descending and sigmoid colon with mild prominence of the wall. Lymph nodes Retroperitoneal: Unremarkable. Pelvic: Unremarkable. Mesenteric: Unremarkable. Peritoneum: Normal. Vessels: Atherosclerotic calcifications are seen. Abdominal wall: Unremarkable. Bones: Degenerative changes in the visualized spine. IMPRESSION: No acute abnormalities are definitely seen to suggest lower abdominal pain and back pain. Minimal prominence of the descending colonic wall is likely due to underdistention however clinical correlation is recommended to exclude very mild infectious/inflammatory colitis. ACT 112: Negative or not required by law. Electronically signed by: Wale Bunn M.D. 07/27/2024 11:15 AM Chest CTA 07/27/24 10:27 CT ANGIOGRAPHY OF THE CHEST, PULMONARY EMBOLUS PROTOCOL CLINICAL HISTORY: Chest pain. Evaluate for pulmonary embolus. COMPARISON STUDY: Chest radiograph performed earlier today. TECHNIQUE: Following IV administration of 120 mL of Optiray, helical axial images of the chest were obtained utilizing the pulmonary embolus protocol. Maximal intensity projections and sagittal and coronal reformats were viewed on an independent 3D workstation. IV contrast was administered without complication. Automated exposure control was utilized for the study. A dose lowering technique was utilized adhering to the principles of ALARA. CT DOSE: 2061.36 mGy.cm FINDINGS: No pulmonary emboli are identified. There is no thoracic aortic dissection. Size of the heart is normal. There is no pericardial effusion. There is mild dilatation of the aortic arch measuring 3.7 cm. No pneumothorax or pleural effusion is present. There is no thoracic lymphadenopathy. There is no consolidation to suggest pneumonia. Linear densities representing atelectasis or scarring. There are no suspicious pulmonary nodules. No acute fractures within the bony thorax are present. The abdomen and pelvis CT will be reported separately. IMPRESSION: 1. No pulmonary emboli identified. 2. No acute intrathoracic findings. ACT 112: Negative or not required by law. Electronically signed by: Thad Franco M.D. 07/27/2024 10:58 AM ECG Additional Comments: sinus rhythm without acute ST elevation per my interpretation Supervising Physician Co-Signing Physician Notes Patient is a 74-year-old male with history of multiple myeloma currently undergoing treatment with therapy, hypertension, RANDOLPH, CKD stage III and diabetes mellitus and other medical problems presents with history of chest pain lower back pain and abdominal pain since 1 day duration. Patient follows with [facility] oncology Dr. Aguiar and had immunotherapy with Velcade, Darzalex Faspro 2 days ago. Patient was previously on losartan for blood pressure but currently off medications due to prior immunotherapy resulting in hypotension. He states that his back pain is nonradiating, not associated with bowel or bladder incontinence, saddle anesthesia, trauma. Describes abdominal pain associated with diarrhea but denies any nausea, vomiting. Also states having chest pain which worsens with movement and is associated with some dyspnea. Please review HPI for complete details of presentation. I personally reviewed blood work and imaging studies. Initial troponin within normal limits. EKG showed no signs of acute ischemia. Normal LFTs, lipase levels. Normocytic anemia and thromb ocytopenia noted. Elevated D-dimer, CTA showed no PE. Venous Dopplers currently pending. Noted to be in hypertensive urgency while in ED. Physical Exam: Vitals signs as noted above General Appearance:Moderately built and nourished, no apparent distress Head: normocephalic, Atraumatic Eyes: normal inspection, EOMI Neck: supple, Trachea midline Respiratory/Chest: Normal breath sounds, CTA, No accessory muscle use Cardiovascular: S1, S2, No murmur Abdomen/GI:Soft, Non tender, protuberant, bowel sounds present Extremities/Musculoskeletal:normal inspection, 1+ edema Neurologic/Psych:AAOX3, grossly no focal neurological deficits Skin: normal color, warm Hypertensive urgency Anemia of chronic disease Thrombocytopenia Elevated D-dimer Chest pain rule out ACS, ? Secondary to hypertensive urgency Low back pain--MRI spine pending Possible colitis Multiple myeloma on immunotherapy RANDOLPH Hypertension, abdominal pain likely related to immunotherapy Will start on losartan, IV hydralazine as needed, monitor BP closely Monitor CBC, Currently no signs of bleeding issues Will consider Ortho spine eval for based on MRI results Obtain stool studies to rule out infectious process Empirically started on IV Zosyn Full liquid diet for now, advance as tolerated Check resting echo Pain control Check Doppler studies to rule out DVT--pending Update A1c Continue CPAP HS I personally interviewed and examined at bedside. Patient's care is coordinated with Asuncion Tucker PA-C. I have reviewed the advanced practitioner's documentation, and I agree with plan of care. Please refer to the documentation above for details of patient's presentation and for discussion of other issues. I spent a total of35 minutes coordinating, documenting, and providing care for this patient excluding time spent in the performance of separately billed services.
[2024-07-27] MEDS: oxyCODONE HCL IR 5 MG TAB (IMMEDIATE RELEASE) PO STA (13:25)
--- NOTE | 2024-07-27 13:37 | Electrocardiogram Report ---
Test Reason : Blood Pressure : */* mmHG Vent. Rate : 66 BPM Atrial Rate : 66 BPM P-R Int : 162 ms QRS Dur : 76 ms QT Int : 424 ms P-R-T Axes : 60 58 62 degrees QTcB Int : 444 ms Normal sinus rhythm Normal ECG No previous ECGs available Confirmed by Chuy Huertas ([id number]) on 07/27/2024 1:37:02 PM Referred By: REFERRED SELF Confirmed By: Chuy Huertas
[2024-07-27] MEDS: LOSARTAN POTASSIUM 50 MG TAB PO SCH (14:04)
[2024-07-27] MEDS: methylPREDNISolone 125 MG/2 ML VIAL IV STA (14:06)
--- NOTE | 2024-07-27 15:15 | Ultrasound Report ---
US venous doppler LE BI CLINICAL HISTORY: r/o clot, current cancer TECHNIQUE: Bilateral lower extremity real-time compression venous ultrasound with Color Doppler imagi ng. Utilizing real-time ultrasonic imaging multiple real time high-resolution ultrasonic images with compression and noncompression maneuvers of the deep venous system in addition to color doppler imagi ng were performed from the common femoral vein through the proximal calf veins. COMPARISON: None available at the time of this dictation. FINDINGS/IMPRESSION: Currently there is normal compressibility of the deep venous system from the common femoral vein thro ugh the proximal calf veins. No superficial venous thrombosis is identified. ACT 112: Negative or not required by law. Electronically signed by: Wale Bunn M.D. 07/27/2024 3:13 PM
[2024-07-27] MEDS ORDERED: ONDANSETRON INJ 2 MG/ML 2 ML VIAL IV PRN (15:51)
[2024-07-27] MEDS ORDERED: MoRPHine SULFATE 4 MG/ML 1 ML CARP\\VIAL IV PRN (15:51)
[2024-07-27] MEDS: PIPERACILLIN/TAZOBACTAM 4.5 GM/100 ML BAG IV ONE (16:39)
[2024-07-27] MEDS: hydrALAZINE HCL 20 MG/ML VIAL IV PRN (17:21)
[2024-07-27] MEDS: GADOBUTROL 65ML VIAL IV ONE (18:29)
[2024-07-27] MEDS: oxyCODONE HCL IR 5 MG TAB (IMMEDIATE RELEASE) PO PRN (19:36)
[2024-07-27] MEDS: ACYCLOVIR 400 MG TAB PO SCH (19:36)
[2024-07-27] MEDS: amLODIPine BESYLATE 5 MG TAB PO SCH (19:36)
[2024-07-27] MEDS ORDERED: PIPERACILLIN/TAZOBACTAM 4.5 GM/100 ML BAG IV SCH (20:00)
[2024-07-27] MEDS: ACETAMINOPHEN 325 MG TAB PO PRN (21:40)
[2024-07-27] MEDS: PIPERACILLIN/TAZOBACTAM 4.5 GM/100 ML BAG IV SCH (21:40)
[2024-07-28] MEDS ORDERED: LABETALOL HCL IV 5 MG/ML 20ML IV PRN (01:42)
[2024-07-28] MEDS: POLYETHYLENE (MIRALAX) 17 GM PACK PO PRN (01:52)
--- OUTSIDE RECORDS SUMMARY | 2024-07-28 03:00 | External Medical Summary | Summary of Care ---
Author Name Unknown Organization [facility] Address [address] [place] [address] Phone [phone] Care Team Providers Care Weaving Teacher Name Role Phone Jean Claude Yao DO Primary Care Provider [phone] Encounter Details Date Type Department Care Team (Late st Contact Info) Description 07/27/2024 Telephone Hematology/Oncology [facility] [address] [facility] [place] [address] Abbey Aguiar MD [address] [place] [address] Allergies No known active allergiesdocumented as of this encounter (statuses as of 07/27/2024) Medications Medication Sig Dispensed Refills Start Date [...] as of this encounter (statuses as of 07/27/2024) Active Problems Problem Noted Date Diagnosed Date [...] as of this encounter (statuses as of 07/27/2024) Resolved Problems Problem Noted Date Diagnosed Date Resolved Date Prediabetes 10/26/2023 12/31/2023 Overview: Per Prediabetes protocol Hypertensive kidney disease with stage 3a chronic kidney disease 07/02/2023 03/29/2024 Lesion of pancreas 12/09/2022 4 documented as of this encounter (statuses as of 07/27/2024) Immunizations Name Administration Dates Next Due COVID-19 [...] Encounter - Kristin Borrero PHARM Tech - 07/27/2024 8:19 AM EDT MEDICATION THERAPY MANAGEMENT LENALIDOMIDE TREATMENT STATUS NOTE Jeff Martin [id number] Patient Phone Numbers Communication: Spoke to Patient Treatment: Medication: Lenalidomide (Revlimid) 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 Aguiar Caller: Patient Incoming Request: Patient experiencing side effects Action: Advised Patient that earlier VM message had been sent to Provider. Additional Notes: Patient is calling back to report having had a very bad night. He is seeking advice on what to do since he is having symptoms of back pain, chest heaviness and elevated BP. I suggested Patient seek medical assistance. He is going to report to [facility]. 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 Aguiar Caller: Patient Incoming Request: Patient experiencing side effects Action: Sent telephone encounter to pharmacist for follow-up Additional Notes: Patient reporting back & chest pain, elevated BP 215/111 and over all feelingvery unwell. Requesting a return call. MEENAKSHI Londono Electromagnet Crane Operator Hematology Oncology Oral Chemotherapy Clinic Medication Therapy Disease Management [facility] 07/27/24,7:53 AM Time Spent on Encounter: < 5 minutes documented in this encounter Plan of Treatment Upcoming Encounters Date Type Department Care Team (Latest Contact Info) Description 07/28/2024 8:00 AM EDT Laboratory Laboratory State Seth Bhardwaj [address] [place] [phone] Pratima Kelsey [address] [place] [address] 07/28/2024 9:00 AM EDT Hem/Onc Treatment Hematology/Oncolog y Treatment, [place] [address] [place] [phone] Laure, Chair 6 Hem Onc Sh[place] [address] [place] [address] [address] 08/01/2024 7:20 AM EDT Laboratory Laboratory Kelli Kelsey [place] [address] [place] [phone] Laure Lab Scenery [address] [place], [place] [address] 08/01/2024 8:00 AM EDT Office Visit Hematology/Oncolog y Scenery Laure [place] [address] [place] [phone] Abbey Aguiar MD [address] [place] [address] 08/01/2024 8:30 AM EDT Hem/Onc Treatment Hematology/Oncolog y Treatment, [place] [address] [place], [place] [phone] Laure, Chair 5 Hem Onc [place] [address] [place] [address] 08/08/2024 9:00 AM EDT Pharmacy Pharmacy Hematology Oncology [facility] [address] [place] [address] [facility] Hem/Onc [address] [place] [address] 08/23/2024 10:00 AM EDT Office Visit Family Practice [address] [place] [address] [address] [place] [address] Jean Claude Yao, 293 [place] [address] 09/08/2024 2:30 PM EDT Hospital Encounter ENDO OSSC, Endoscopy Room [facility] [address] [facility] [place] [phone] Irving Iyer MD [address] [place] [address] 09/08/2024 2:30 PM EDT - 09/08/2024 3:00 PM EDT Surgery ENDO OSSC, Endoscopy Room [facility] [address] [facility] [place] [address] Irving Iyer MD [address] [place] [address] COLONOSCOPY FLEXIBLE PROXIMAL DIAGNOSTIC 03/13/2025 11:00 AM EDT Office Visit Sleep Disorders Ctr [facility] [address] [place] [address] Ruma Orellana DO [address] [place] [address] Scheduled Procedures Name Priority Associated Diagnoses Date/Ti me COLONOSCOPY FLEXIBLE PROXIMAL DIAGNOSTIC Recall History of colonic polyps 09/08/2024 2:30 PM EDT Health Maintenance Due Date Last Done Comments Cologuard 1997 Fecal Occult Blood Test 1997 Sigmoidoscopy 1997 Adult Wellness Visit 2018 COVID-19 Vaccine (3 - Moderna risk series) 04/19/2021 03/22/2021, 02/21/2021 Zoster Vaccines (2 of 2) 02/03/2023 12/09/2022, 1211/2011 CKD PHOS USE SMARTSET 16214 06/15/2024 06/15/2023 Colonoscopy 06/29/2024 06/29/2023, 06/16, 03/16/2023, Additional history exists Colorectal Cancer Screening 06/29/2024 Influenza Vaccine (FLU shot) (#1) 2024 08/03/2023, 08/08/2022 HbA1c 09/29/2024 03/29/2024, 1211/2022, 06/15/2023 Depression Screening 09/30/2024 09/30/2023 Diabetic Eye Exam 01/20/2025 01/21/2024, , 05/26/2022 GFR 01/22/2025 07/25/2024, 09/0 04/2024, 07/19/2024, Additional history exists Diabetic Foot Exam 04/12/2025 04/12/2024, 04/12/2024 Albumin/Creatinine Ratio 05/09/202505/09/2 024, 06/15/2023, 06/03/2022 CKD HGB USE SMARTSET 66856 07/25/202507/25, 07/25/2024, 07/22/2024, Additional history exists DTap/Tdap [...] this encounter Medical Devices Implanted Type Area Stonemason Helper Device Identifier Shelf Expiration Date Model / Serial / Lot Sureclip 16mm 235cm - [id number] Implanted:Qty: 1 on 03/16/2023 by Irving Iyer MD at OR [facility] MICRO TECH ENDOSCOPY [id number] 05/19/2025 [id number] / / [id number] Duraclip 16mm Xlg Repostn - [id number] Implanted:Qty: 1 on 03/16/2023 by Irving Iyer MD at OR [facility] [employer] [id number] 05/18/2024 [id number] / / [id number] Duraclip 16mm Xlg Repostn - [id number] Implanted:Qty: 1 on 03/16/2023 by Irving Iyer MD at OR [facility] [employer] [id number] 05/18/2024 [id number] / / [id number] Duraclip 16mm Xlg Repostn - [id number] Implanted:Qty: 1 on 03/16/2023 by Irving Iyer MD at OR [facility] [employer] [id number] 05/18/2024 [id number] / / [id number] Duraclip 16mm Xlg Repostn - [id number] Implanted:Qty: 1 on 03/16/2023 by Irving Iyer MD at OR [facility] [employer] [id number] 05/18/2024 [id number] / / [id number] Duraclip 16mm Xlg Repostn - [id number] Implanted:Qty: 1 on 03/16/2023 by Irving Iyer MD at OR [facility] [employer] [id number] 05/18/2024 [id number] / / [id number] Duraclip 16mm Xlg Repostn - [id number] Implanted:Qty: 1 on 03/16/2023 by Irving Iyer MD at OR [facility] [employer] [id number] 05/19/2024 [id number] / / [id number] Duraclip 16mm Xlg Repostn - [id number] Implanted:Qty: 1 on 03/16/2023 by Irving Iyer MD at OR [facility] [employer] [id number] 05/19/2024 [id number] / / [id number] Duraclip 16mm Xlg Repostn - [id number] Implanted:Qty: 1 on 03/16/2023 by Irving Iyer MD at OR [facility] [employer] [id number] 05/19/2024 [id number] / / [id number] Duraclip 16mm Xlg Repostn - [id number] Implanted:Qty: 1 on 03/16/2023 by Irving Iyer MD at OR [facility] [employer] [id number] 05/18/2024 [id number] / / [id number] Duraclip 16mm Xlg Repostn - [id number] Implanted:Qty: 1 on 03/16/2023 by Irving Iyer MD at OR [facility] [employer] [id number] 05/18/2024 [id number] / / [id number] Duraclip 16mm Xlg Repostn - [id number] Implanted:Qty: 1 on 03/16/2023 by Irving Iyer MD at OR [facility] [employer] [id number] 05/18/2024 [id number] / / [id number] Duraclip 16mm Xlg Repostn - [id number] Implanted:Qty: 1 on 03/16/2023 by Irving Iyer MD at OR [facility] [employer] [id number] 05/18/2024 [id number] / / [id number] Duraclip 16mm Xlg Repostn - [id number] Implanted:Qty: 1 on 03/16/2023 by Irving Iyer MD at OR [facility] [employer] [id number] 05/18/2024 [id number] / / [id number] documented as of this encounter Visit Diagnoses Diagnosis 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
--- OUTSIDE RECORDS SUMMARY | 2024-07-28 03:00 | External Medical Summary | Summary of Care ---
Author Name Unknown Organization [facility] Address [address] [place] [address] Phone [phone] Care Team Providers Care Knowledge Management Consultant Name Role Phone Jean Claude Yao DO Primary Care Provider [phone] Encounter Details Date Type Department Care Team (Late st Contact Info) Description 07/27/2024 Telephone Hematology/Oncology [facility] [address] 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 Aguiar Caller: Patient Incoming Request: Patient experiencing side effects Action: Sent [facility] teams message. Additional Notes: Patient is calling back to report having had a very bad night. He is seeking advice on what to do since he is having symptoms of back pain, chest heaviness and elevated BP. [facility] was unavailable. I suggested Patient seek medical assistance. He is going to report to [facility]. 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 Aguiar Caller: Patient Incoming Request: Patient experiencing side effects Action: Sent telephone encounter to pharmacist for follow-up Additional Notes: Patient reporting back & chest pain, elevated BP 215/111 and over all feelingvery unwell. Requesting a return call. MEENAKSHI Londono Concrete Block Plant Supervisor Hematology Oncology Oral Chemotherapy Clinic Medication Therapy Disease Management [facility] 07/27/24,7:53 AM Time Spent on Encounter: < 5 minutes documented in this encounter Plan of Treatment Upcoming Encounters Date Type Department Care Team (Latest Contact Info) Description 07/28/2024 8:00 AM EDT Laboratory Laboratory [facility] [employer] [address] [place] [phone] Pratima Kelsey [address] [place] [address] 07/28/2024 9:00 AM EDT Hem/Onc Treatment Hematology/Oncolog y Treatment, [place] [address] [place] [phone] Laure, Chair 6 [facility] [address] [place] [address] [address] 08/01/2024 7:20 AM EDT Laboratory Laboratory [facility] [employer] [address] [place] [phone] Pratima Kelsey Scenery [address] [place], [place] [address] 08/01/2024 8:00 AM EDT Office Visit Hematology/Oncolog y Scenery Laure [place] [address] [place] [phone] Abbey Aguiar MD [address] [place] [address] 08/01/2024 8:30 AM EDT Hem/Onc Treatment Hematology/Oncolog y [facility], [place] [address] [place], [place] [phone] Laure, Chair 5 Hem Onc [place] [address] [place] [address] 08/08/2024 9:00 AM EDT Pharmacy Pharmacy Hematology Oncology [facility] [address] [place] [address] [facility], [facility] Hem/Onc [address] [place] [address] 08/23/2024 10:00 AM EDT Office Visit Family Practice [address] [facility] [address] [place] [address] Jean Claude Yao, 293 [place] [address] 09/08/2024 2:30 PM EDT Hospital Encounter ENDO OSSC, Endoscopy Room [facility] [address] [facility] [place] [phone] Irving [facility] [place] [address] 09/08/2024 2:30 PM EDT - 09/08/2024 3:00 PM EDT Surgery ENDO OSSC, Endoscopy Room [facility] [address] [facility] [place] [address] Irving Iyer MD [address] [place] [address] COLONOSCOPY FLEXIBLE PROXIMAL DIAGNOSTIC 03/13/2025 11:00 AM EDT Office Visit Sleep Disorders Ctr [facility] [address] [place] [phone] Ruma Orellana DO [address] [place] [address] Scheduled Procedures Name Priority Associated Diagnoses Date/Ti me COLONOSCOPY FLEXIBLE PROXIMAL DIAGNOSTIC Recall History of colonic polyps 09/08/2024 2:30 PM EDT Health Maintenance Due Date Last Done Comments Cologuard 1997 Fecal Occult Blood Test 1997 Sigmoidoscopy 1997 Adult Wellness Visit 2018 COVID-19 Vaccine (3 - Moderna risk series) 04/19/2021 03/22/2021, 02/21/2021 Zoster Vaccines (2 of 2) 02/03/2023 12/09/2022, 1211/2011 CKD PHOS USE SMARTSET 35597 06/15/2024 06/15/2023 [...] 024, 06/15/2023, 06/03/2022 CKD HGB USE SMARTSET 76138 07/25/202507/25, 07/25/2024, 07/22/2024, Additional history exists DTap/Tdap [...] this encounter Medical Devices Implanted Type Area Communications Specialist Device Identifier Shelf Expiration Date Model / Serial / Lot Sureclip 16mm 235cm - [id number] Implanted:Qty: 1 on 03/16/2023 by Irving Iyer MD at OR [facility] MICRO TECH ENDOSCOPY [id number] 05/19/2025 [id number] / / [id number] Duraclip 16mm Xlg Repostn - [id number] Implanted:Qty: 1 on 03/16/2023 by Irving Iyer MD at OR [facility] [employer] [id number] 05/18/2024 [id number] / / [id number] Duraclip 16mm Xlg Repostn - [id number] Implanted:Qty: 1 on 03/16/2023 by Irving Iyer MD at OR [facility] [employer] [id number] 05/18/2024 [id number] / / [id number] Duraclip 16mm Xlg Repostn - [id number] Implanted:Qty: 1 on 03/16/2023 by Irving Iyer MD at OR [facility] [employer] [id number] 05/18/2024 [id number] / / [id number] Duraclip 16mm Xlg Repostn - [id number] Implanted:Qty: 1 on 03/16/2023 by Irving Iyer MD at OR [facility] [employer] [id number] 05/18/2024 [id number] / / [id number] Duraclip 16mm Xlg Repostn - [id number] Implanted:Qty: 1 on 03/16/2023 by Irving Iyer MD at OR [facility] [employer] [id number] 05/18/2024 [id number] / / [id number] Duraclip 16mm Xlg Repostn - [id number] Implanted:Qty: 1 on 03/16/2023 by Irving Iyer MD at OR [facility] [employer] [id number] 05/19/2024 [id number] / / [id number] Duraclip 16mm Xlg Repostn - [id number] Implanted:Qty: 1 on 03/16/2023 by Irving Iyer MD at OR [facility] [employer] [id number] 05/19/2024 [id number] / / [id number] Duraclip 16mm Xlg Repostn - [id number] Implanted:Qty: 1 on 03/16/2023 by Irving Iyer MD at OR [facility] [employer] [id number] 05/19/2024 [id number] / / [id number] Duraclip 16mm Xlg Repostn - [id number] Implanted:Qty: 1 on 03/16/2023 by Irving Iyer MD at OR [facility] [employer] [id number] 05/18/2024 [id number] / / [id number] Duraclip 16mm Xlg Repostn - [id number] Implanted:Qty: 1 on 03/16/2023 by Irving Iyer MD at OR [facility] [employer] [id number] 05/18/2024 [id number] / / [id number] Duraclip 16mm Xlg Repostn - [id number] Implanted:Qty: 1 on 03/16/2023 by Irving Iyer MD at OR [facility] [employer] [id number] 05/18/2024 [id number] / / [id number] Duraclip 16mm Xlg Repostn - [id number] Implanted:Qty: 1 on 03/16/2023 by Irving Iyer MD at OR [facility] [employer] [id number] 05/18/2024 [id number] / / [id number] Duraclip 16mm Xlg Repostn - [id number] Implanted:Qty: 1 on 03/16/2023 by Irving Iyer MD at OR [facility] [employer] [id number] 05/18/2024 [id number] / / [id number] documented as of this encounter Visit Diagnoses Diagnosis Smoldering multiple myeloma (SMM)- Primary Multiple myeloma, without mention of having achieved remission History of colonic polyps Personal history of colonic polyps documented in this encounter Care Teams Knowledge Management Consultant Relationship Specialty Start Date End Date Jean Claude Yao DO [address] [place] [address] PCP - General Internal Medicine 05/09/24 documented as of this encounter
[2024-07-28 06:29] LABS: Albumin Globulin Ratio 1.2 (0.9-2); Albumin Level 3.8 gm/dl (3.4-5.0); BUN Creatinine Ratio 14.8 (10-20); Bilirubin,Total 1.1 mg/dl (0.2-1.0); Calcium 8.7 mg/dl (8.6-10.3); Chol HDL Ratio 2.6 (0-5); Creatinine Clr Calc Pharmacy 67.9 ml/min; Est GFR (African American) 79.1 ml/min; Est GFR (Non-African American) 68.2 ml/min; Globulin 3.1 gm/dl (2.5-4.0); Potassium 3.9 mmol/L (3.5-5.1); Total Protein 6.9 gm/dl (6.0-8.3)
[2024-07-28 06:47] LABS: Hemoglobin 10.6 g/dl (14.0-18.0); Immature Granulocytes # (auto) 0.03 K/uL (0.01-0.20); Immature Granulocytes % (auto) 0.7 %; Lymphocytes # (auto) 0.58 K/uL (1.20-3.40); Lymphocytes % (auto) 13.7 %; Mean Corpuscular Hemoglobin 33.5 pg (25.0-34.0); Mean Corpuscular Hgb Conc 34.2 g/dL (32.0-36.0); Mean Corpuscular Volume 98.1 fL (80.0-100.0); Mean Platelet Volume 13.5 fL (9.4-12.4); Monocytes # (auto) 0.62 K/uL (0.11-0.59); Monocytes % (auto) 14.7 %; Neutrophils # (auto) 2.99 K/uL (1.40-6.50); Neutrophils % (auto) 70.9 %; Platelet Count 72 K/uL (130-400); RDW Coefficient of Variation 14.4 % (11.5-14.5); RDW Standard Deviation 51.8 fL (36.4-46.3); Red Blood Count 3.16 M/uL (4.70-6.10); White Blood Count 4.22 K/ul (4.8-10.8)
[2024-07-28 07:11] LABS: Estimated Average Glucose 123 mg/dl; Hemoglobin A1C 5.9 % (4.5-5.6)
--- NOTE | 2024-07-28 08:07 | Magnetic Resonance Report ---
MRI OF THE LUMBAR SPINE WITH AND WITHOUT CONTRAST CLINICAL HISTORY: Lumbar pain. Multiple myeloma. COMPARISON STUDY: CT of the abdomen and pelvis July 27, 2024. TECHNIQUE: Utilizing a 1.5 Aziza magnet and dedicated coil, multiplanar, multiecho imaging of the franco ar spine was performed before and after uneventful IV administration of 9 mL of Gadavist. FINDINGS: For purposes of numbering on this exam, the L5-S1 disc space is assigned to axial image 23 of 25. Piter tebral body heights are maintained. There is no suspicious marrow replacement within the lumbar spine . There are no fractures. A T1 and T2 hyperintense lesion within the L4 vertebral body represents a h emangioma. There is no intracanalicular mass or fluid collection. Conus terminates at the upper L1 le lisa. Left-sided renal parapelvic cysts are incidentally noted. L1-2: The central canal and neural foramen are patent. L2-3: The central canal and neural foramen are patent. L3-4: There is moderate facet arthrosis with ligamentous hypertrophy. There is mild disc bulge. There is mild narrowing of the bilateral neural foramen. No significant central canal stenosis. L4-5: Moderate to space narrowing with moderate facet arthrosis and ligamentous hypertrophy. No signi ficant central canal stenosis. There is moderate bilateral neural foraminal stenosis. L5-S1: Moderate facet arthrosis with ligamentous hypertrophy is present. There is disc bulge. There i s moderate right and mild left neural foraminal stenosis. IMPRESSION: 1. No suspicious marrow replacement within the lumbar spine. No abnormal enhancement. No lumbar spine fractures. 2. Moderate facet arthrosis and mild degenerative disc disease at multiple levels within the lumbar s pine. No central canal stenosis. Moderate multilevel neural foraminal stenosis, as above. ACT 112: Negative or not required by law. Electronically signed by: Thad Franco M.D. 07/28/2024 8:05 AM
[2024-07-28] MEDS: DOCUSATE SODIUM 100 MG CAP PO SCH (08:55)
[2024-07-28] MEDS: LOSARTAN POTASSIUM 50 MG TAB PO SCH (08:56)
--- NOTE | 2024-07-28 11:07 | Discharge Summary ---
Discharge Summary Date of Service July 28, 2024 Principal Dx & Hospital Course #1 = Principal Diagnosis (1) Hypertensive urgency: (2) Chemotherapy-induced diarrhea: (3) Chemotherapy adverse reaction: Chest pain/musculoskeletal pain (4) Multiple myeloma: (5) Prediabetes: (6) CKD (chronic kidney disease), stage III: (7) Lumbar foraminal stenosis: Plan Patient 74-year-old gentleman with known multiple myeloma undergoing chemotherapy treatments presenting the emergency room with complaints of some chest pain, low back pain and a couple episodes of loose stools. Due to his symptomatology was referred for further evaluation. Patient was monitored in the hospital. There was no significant arrhythmias on telemetry. Troponins were trended and were normal times all sets. Patient was started on Norvasc and losartan for his blood pressure. By the following morning his blood pressure had significantly improved and can continue to be monitored and medications adjusted as an outpatient. He had no further episodes of loose stools. He ruled out for acute coronary syndrome. Reviewing his chemotherapy agents and the side effects both of them can induce some diarrhea. The Darzalex Faspro also can cause significant arthralgias and musculoskeletal pains. MRI of the lumbar spine did not show any fracture. Did show some foraminal stenosis but no significant cord impingement. On the day of discharge he was up and ambulatory. His chest pain had resolved. He was tolerating his diet. Findings were reviewed with him and he can be discharged home to follow-up with his PCP and oncologist. Notes For Next Care Provider May need additional management of antihypertensive medications Medication Changes From Visit Amlodipine and losartan started for blood pressure management Admission HPI Per Admitting Provider Patient is 74 year old male with PMH DM II, HTN, CKD III, RANDOLPH, multiple myeloma currently receiving treatment presented to ER with c/o chest pain, low back pain x 1 day. History obtained from patient, patient's as well as outpatient chart review. Patient had second treatment on 07/25/24 with Velcade, Darzalex Faspro, Decadron. Revlimid was also restarted every 2 days. He states tolerated his first round without any symptoms. States his 2nd treatment was held because of low BP but was able to get on 07/25/24. Reports his Revlimid has been on hold and restarted on 07/24/24, last dose was 07/26/24. He states yesterday started with low back pain he describes as dull and non-radiating. Aggravated with some movement or prolonged sitting. Denies LE pain or paresthesias, lose control of bowel/bladder or saddle paresthesias. Denies fall or known injury. No known bony lesions in past, but last PET scan showed possible compression fracture T8 in which patient states has not had any back pain. He also states yesterday morning started with chest discomfort described as pressure to mid chest that is aggravated with movement and he also feels SOB. Currently in ER denies any SOB or CP but reports low back pain. He tried Tylenol at home without much relief. He states last BM was yesterday morning and states had loose BM yesterday and one loose BM the day before. He also reports had some mid abdominal discomfort which he also feels has improved today. Denies nausea or vomiting. Patient states had prior history of HTN however has been off losartan for past year since was on Revlimid and it caused hypotension. Denies fever/chills, diaphoresis, BOOKER, dizziness, syncope, vision changes, neck pain, orthopnea, palpitations, cough, sore throat, otalgia, rhinorrhea, paresthesias, extremity weakness, extremity edema, rashes, urinary symptoms. Per outpatient chart review: 06/29/2023 colonoscopy: Poor colon preparation, tattoo seen in ascending colon, post colectomy scar was found at tattoo site, two 8 mm polyps in ascending colon removed, nonbleeding internal hemorrhoids 06/29/2023: Biopsy ascending colon scar: Benign colonic mucosa with mild inflammation, focal hyperplastic and reactive change, no evidence of dysplasia. Biopsy ascending colon polyp: Tubular adenoma Admission Exam Per Admitting Provider I refer you to the H&P Discharge Exam Constitutional: Alert HEENT: Mucous membranes moist. Lungs: Clear to auscultation, decreased, no wheezes rales or rhonchi CV: S1-S2, regular Abdomen: Soft, nontender, nondistended Extremities: No significant edema Neuro: No focal deficits Psych: Cooperative, normal mood Updated Medication List Medication Instructions Recorded Confirmed Type acyclovir 400 mg tablet 400 mg PO BID 07/27/24 07/27/24 History dexamethasone 4 mg tablet 4 mg PO UD 07/27/24 07/27/24 History glipizide 2.5 mg tablet, extended 2.5 - 5 mg PO UD 07/27/24 07/27/24 History release 24 hr lenalidomide 10 mg capsule 10 mg PO Q2D 07/27/24 07/27/24 History amlodipine 5 mg tablet (Norvasc) 5 mg PO QAM 30 days #30 tabs 07/28/24 Rx losartan 50 mg tablet 100 mg (2 x 50 mg) PO QAM 30 days 07/28/24 Rx #60 tabs Hospital Stay Data Consultations 07/27/24 12:07 ED Decision to Admit Stat Diagnostic Imagining Performed 07/27/24 10:27 CT abd pelvis IV con only Stat CT angio chest PE protocol Stat 07/27/24 13:20 MRI Lumbar Spine [MR lumbar spine wo/w con] Routine US venous doppler LE BI Stat Reviewed imaging, laboratory and diagnostic studies. Pertinent findings as below. Echocardiogram shows normal ejection fraction, no significant valvular abnormalities, I refer you to the full report for details Troponins negative times all sets CBC stable, pancytopenia most likely due to multiple myeloma and chemotherapy BMP stable, creatinine 1.08 Pending Results Patient Have Any Pending Studies at Discharge: Yes Discharge Instructions Given to Patient (Per Discharging Provider) Follow-up with your oncologist as previously arranged Total Time Total Time Spent Total Time Spent (In Minutes): 32
[2024-07-28 11:25] VITALS: RESP 18
[2024-07-28 11:56] VITALS: BP 128/70; PULSE 68; TEMP 97.9; O2SAT 96
--- NOTE | 2024-07-28 14:36 | Electrocardiogram Report ---
Test Reason : Blood Pressure : */* mmHG Vent. Rate : 80 BPM Atrial Rate : 80 BPM P-R Int : 152 ms QRS Dur : 86 ms QT Int : 418 ms P-R-T Axes : 66 65 68 degrees QTcB Int : 482 ms Normal sinus rhythm Possible Left atrial enlargement Prolonged QT Abnormal ECG When compared with ECG of 27-Jul-2024 09:03, No significant change was found Confirmed by Chuy Huertas ([id number]) on 07/28/2024 2:35:34 PM Referred By: REFERRED SELF Confirmed By: Chuy Huertas
--- NOTE | 2024-07-28 14:37 | Electrocardiogram Report ---
Test Reason : Blood Pressure : */* mmHG Vent. Rate : 77 BPM Atrial Rate : 77 BPM P-R Int : 158 ms QRS Dur : 88 ms QT Int : 422 ms P-R-T Axes : 65 71 61 degrees QTcB Int : 477 ms Normal sinus rhythm Normal ECG When compared with ECG of 28-Jul-2024 01:50, (unconfirmed) T wave inversion no longer evident in Anterior leads Confirmed by Chuy Huertas ([id number]) on 07/28/2024 2:36:56 PM Referred By: REFERRED SELF Confirmed By: Chuy Huertas
== END 2024-07-28 12:23 | disposition home or self-care (01) | DRG 304 ==
LOC: ED 08:45 → SUATTDRO 13:20 → EDINP 13:20 → 2W 15:51